=== PATIENT | female | born 1955 | race Caucasian/White ===

== ENCOUNTER → 2020-09-06 13:15 | Outpatient (BNVA) | payer MEDICARE, MEDICAID, SELFPAY | PROVIDERS: PCP Internal Medicine; Referring Provider Internal Medicine; Visit Provider Hospitalist | DX: J44.9 Chronic obstructive pulmonary disease, unspecified (principal); J96.11 Chronic respiratory failure with hypoxia; M06.9 Rheumatoid arthritis, unspecified; Z14.1 Cystic fibrosis carrier; Z79.899 Other long term (current) drug therapy; Z99.81 Dependence on supplemental oxygen | CPT/HCPCS: 99212 ==

== ENCOUNTER → 2020-10-16 09:52 | Outpatient (BNVA) | payer MEDICARE, MEDICAID, SELFPAY | PROVIDERS: PCP Internal Medicine; Referring Provider Internal Medicine; Visit Provider Student in an Organized Health Care Education/Training Program | DX: Z13.89 Encounter for screening for other disorder (principal) | CPT/HCPCS: Q3014 ==

== ENCOUNTER 2021-01-08 10:13 | Outpatient (REF) | payer MEDICARE, MEDICAID, SELFPAY ==
[2021-01-08 12:06] LABS: MANUAL DIFF FLAG NO
[2021-01-08 12:11] LABS: Basophils Absolute Auto 0.1 X10*3/uL (0.0-0.2); Basophils Percent Auto 1.4 % (0-2); Eosinophils Absolute Auto 0.2 X10*3/uL (0.0-0.4); Eosinophils Percent Auto 3.7 % (0-4); Hematocrit 33.9 % (37-47); Imm Gran Abs Auto 0.01 X10*3/uL (0.00-0.03); Imm Gran Pct Auto 0.2 % (0.0-0.4); Lymphocytes Absolute Auto 2.4 X10*3/uL (1.2-4.9); Lymphocytes Percent Auto 42.3 % (20-40); Mean Corpuscular HGB Conc 29.5 g/dl (31.0-35.0); Mean Corpuscular Volume 81.5 fL (80-98); Mean Platelet Volume 10.3 fL (9.4-12.3); Monocytes Absolute Auto 0.6 X10*3/uL (0.1-1.2); Monocytes Percent Auto 10.3 % (2-11); Neutrophils Absolute Auto 2.4 X10*3/uL (2.0-8.3); Neutrophils Percent Auto 42.1 % (45-73); Platelet Count 370 X10*3/uL (160-400); Red Blood Count 4.16 X10*6/uL (4.20-5.50); Red Cell Distribution Width 17.2 % (11.0-16.0); White Blood Count 5.6 X10*3/uL (4.8-10.8)
[2021-01-08 12:47] LABS: Alanine Aminotransferase 20 U/L (0-31); Albumin Level 4.1 g/dL (3.5-5.0); Alkaline Phosphatase 70 U/L (39-117); Anion Gap 17 (12-20); Aspartate Amino Transferase 32 U/L (5-31); Bilirubin Total 0.3 mg/dL (0.0-1.0); Blood Urea Nitrogen 9 mg/dL (9-16); C Reactive Protein 0.08 mg/dL (< or = 0.50); Calcium 9.1 mg/dL (8.4-10.2); Carbon Dioxide 34 mmol/L (22-29); Chloride 96 mmol/L (96-108); Estimated Glomerular Filt Rate > 60; Glucose Random 104 mg/dL (60-115); Potassium 3.3 mmol/L (3.3-5.1); Sodium 144 mmol/L (135-145); Total Protein 6.5 g/dL (6.5-8.0)
[2021-01-08 12:53] LABS: Erythrocyte Sedimentation Rate 6 MM/HR (0-20)
== END 2021-01-08 10:14 | disposition home or self-care (01) ==
LOC: HO.LAB 10:13
PROVIDERS: Visit Provider Student in an Organized Health Care Education/Training Program
DX: M05.9 Rheumatoid arthritis with rheumatoid factor, unspecified (principal); G62.9 Polyneuropathy, unspecified; S91.302A Unspecified open wound, left foot, initial encounter; Z79.899 Other long term (current) drug therapy
CPT/HCPCS: 36415; 80053; 85025; 85652; 86140; 99212

== ENCOUNTER → 2021-01-29 09:39 | Outpatient (BNVA) | payer MEDICARE, MEDICAID, SELFPAY | PROVIDERS: PCP Physician Assistant Medical; Visit Provider Hospitalist | DX: Z13.89 Encounter for screening for other disorder (principal) | CPT/HCPCS: Q3014 ==

== ENCOUNTER 2021-04-09 10:49 | Outpatient (REF) | payer MEDICARE, MEDICAID, SELFPAY ==
[2021-04-09 12:15] LABS: MANUAL DIFF FLAG NO
[2021-04-09 12:21] LABS: Basophils Percent Auto 0.6 % (0-2); Eosinophils Absolute Auto 0.2 X10*3/uL (0.0-0.4); Eosinophils Percent Auto 2.4 % (0-4); Imm Gran Abs Auto 0.02 X10*3/uL (0.00-0.03); Imm Gran Pct Auto 0.3 % (0.0-0.4); Lymphocytes Absolute Auto 2.2 X10*3/uL (1.2-4.9); Lymphocytes Percent Auto 30.9 % (20-40); Mean Corpuscular Hemoglobin 28.1 pg (27.0-33.0); Mean Corpuscular Volume 90.9 fL (80-98); Mean Platelet Volume 10.8 fL (9.4-12.3); Monocytes Absolute Auto 0.7 X10*3/uL (0.1-1.2); Monocytes Percent Auto 9.6 % (2-11); Neutrophils Percent Auto 56.2 % (45-73); Platelet Count 219 X10*3/uL (160-400); Red Blood Count 4.62 X10*6/uL (4.20-5.50); Red Cell Distribution Width 20.1 % (11.0-16.0); White Blood Count 7.2 X10*3/uL (4.8-10.8)
[2021-04-09 13:01] LABS: Alanine Aminotransferase 13 U/L (0-31); Albumin Level 4.3 g/dL (3.5-5.0); Alkaline Phosphatase 80 U/L (39-117); Anion Gap 13 (12-20); Aspartate Amino Transferase 23 U/L (5-31); Bilirubin Total 0.5 mg/dL (0.0-1.0); Blood Urea Nitrogen 10 mg/dL (9-16); C Reactive Protein 0.08 mg/dL (< or = 0.50); Calcium 9.2 mg/dL (8.4-10.2); Carbon Dioxide 35 mmol/L (22-29); Chloride 97 mmol/L (96-108); Estimated Glomerular Filt Rate > 60; Glucose Random 120 mg/dL (60-115); Sodium 141 mmol/L (135-145); Total Protein 6.6 g/dL (6.5-8.0)
[2021-04-09 13:39] LABS: Erythrocyte Sedimentation Rate 1 MM/HR (0-20)
== END 2021-04-09 10:50 | disposition home or self-care (01) ==
LOC: HO.LAB 10:49
PROVIDERS: PCP Internal Medicine; Visit Provider Student in an Organized Health Care Education/Training Program
DX: M05.9 Rheumatoid arthritis with rheumatoid factor, unspecified (principal)
CPT/HCPCS: 36415; 80053; 85025; 85652; 86140; 99212

== ENCOUNTER → 2021-07-23 10:07 | Outpatient (BNVA) | payer MEDICARE, MEDICAID, SELFPAY | PROVIDERS: PCP Physician Assistant Medical; Visit Provider Hospitalist | DX: J96.11 Chronic respiratory failure with hypoxia (principal); J44.9 Chronic obstructive pulmonary disease, unspecified; Z14.1 Cystic fibrosis carrier | CPT/HCPCS: 99212 ==

== ENCOUNTER → 2021-07-31 10:44 | Outpatient (BNVA) | payer MEDICARE, MEDICAID, SELFPAY | PROVIDERS: PCP Physician Assistant Medical; Visit Provider Nurse Practitioner Family | DX: M05.9 Rheumatoid arthritis with rheumatoid factor, unspecified (principal) | CPT/HCPCS: 99212 ==

== ENCOUNTER → 2021-11-05 10:06 | Outpatient (BNVA) | payer MEDICARE, MEDICAID, SELFPAY | PROVIDERS: PCP Physician Assistant Medical; Visit Provider Nurse Practitioner Family | DX: M05.9 Rheumatoid arthritis with rheumatoid factor, unspecified (principal); M25.561 Pain in right knee; M25.562 Pain in left knee | CPT/HCPCS: 99212 ==

== ENCOUNTER → 2022-01-20 10:46 | Outpatient (BNVA) | payer MEDICARE, MEDICAID, SELFPAY | PROVIDERS: PCP Physician Assistant Medical; Visit Provider Hospitalist | DX: J96.11 Chronic respiratory failure with hypoxia (principal); R05.3 Chronic cough; J44.9 Chronic obstructive pulmonary disease, unspecified; J30.0 Vasomotor rhinitis; Z14.1 Cystic fibrosis carrier | CPT/HCPCS: 99212 ==

== ENCOUNTER 2022-05-01 09:33 | Outpatient (REF) | payer MEDICARE, MEDICAID, SELFPAY ==
[2022-05-01 09:51] LABS: MANUAL DIFF FLAG NO
[2022-05-01 10:46] LABS: Basophils Percent Auto 0.6 % (0-2); Eosinophils Absolute Auto 0.1 X10*3/uL (0.0-0.4); Eosinophils Percent Auto 2.7 % (0-4); Hematocrit 38.6 % (37.0-47.0); Hemoglobin 12.4 g/dl (12.0-16.0); Imm Gran Abs Auto 0.01 X10*3/uL (0.00-0.03); Imm Gran Pct Auto 0.2 % (0.0-0.4); Lymphocytes Absolute Auto 1.8 X10*3/uL (1.2-4.9); Lymphocytes Percent Auto 33.9 % (20-40); Mean Corpuscular HGB Conc 32.1 g/dl (31.0-35.0); Mean Corpuscular Hemoglobin 33.1 pg (27.0-33.0); Mean Corpuscular Volume 102.9 fL (80.0-98.0); Mean Platelet Volume 10.1 fL (9.4-12.3); Monocytes Absolute Auto 0.7 X10*3/uL (0.1-1.2); Monocytes Percent Auto 13.4 % (2-11); Neutrophils Absolute Auto 2.5 x10*3/uL (2.0-8.3); Neutrophils Percent Auto 49.2 % (45-73); Platelet Count 207 X10*3/uL (160-400); Red Blood Count 3.75 X10*6/uL (4.20-5.50); Red Cell Distribution Width 14.4 % (11.0-16.0); White Blood Count 5.2 X10*3/uL (4.8-10.8)
[2022-05-01 11:15] LABS: Alanine Aminotransferase 30 U/L (0-31); Albumin Level 4.4 g/dL (3.5-5.0); Alkaline Phosphatase 65 U/L (39-117); Anion Gap 12 (12-20); Aspartate Amino Transferase 33 U/L (5-31); Bilirubin Total 0.4 mg/dL (0.0-1.0); Blood Urea Nitrogen 14 mg/dL (9-16); Calcium 9.5 mg/dL (8.4-10.2); Carbon Dioxide 34 mmol/L (22-29); Chloride 101 mmol/L (96-108); Cholesterol 223 mg/dL; Estimated Glomerular Filt Rate > 60; Glucose Random 82 mg/dL (60-115); HDL Cholesterol 104 mg/dL; LDL Cholesterol Calculated 94 mg/dl; Potassium 4.6 mmol/L (3.3-5.1); Sodium 142 mmol/L (135-145); Total Protein 6.6 g/dL (6.5-8.0); Triglycerides 126 mg/dL
[2022-05-01 11:27] LABS: Erythrocyte Sedimentation Rate 2 MM/HR (0-20)
[2022-05-01 12:35] LABS: Reflex LDLD? No
== END 2022-05-01 09:34 | disposition home or self-care (01) ==
LOC: HO.LAB 09:33
PROVIDERS: PCP Internal Medicine; Visit Provider Nurse Practitioner Family
DX: M05.9 Rheumatoid arthritis with rheumatoid factor, unspecified (principal); M25.561 Pain in right knee; M25.562 Pain in left knee
CPT/HCPCS: 36415; 80053; 80061; 85025; 85652; 86140; 99212

== ENCOUNTER → 2022-07-24 10:18 | Outpatient (BNVA) | payer MEDICARE, MEDICAID, SELFPAY | PROVIDERS: PCP Internal Medicine; Visit Provider Hospitalist | DX: J44.9 Chronic obstructive pulmonary disease, unspecified (principal); J96.11 Chronic respiratory failure with hypoxia; R05.3 Chronic cough; J30.0 Vasomotor rhinitis; Z14.1 Cystic fibrosis carrier | CPT/HCPCS: 99212 ==

== ENCOUNTER 2022-07-30 12:07 | Outpatient (REF) | payer MEDICARE, MEDICAID, SELFPAY ==
[2022-07-30 13:40] LABS: MANUAL DIFF FLAG NO
[2022-07-30 13:42] LABS: Basophils Percent Auto 0.8 % (0-2); Eosinophils Absolute Auto 0.1 X10*3/uL (0.0-0.4); Eosinophils Percent Auto 1.3 % (0-4); Hematocrit 40.4 % (37.0-47.0); Hemoglobin 13.2 g/dl (12.0-16.0); Imm Gran Abs Auto 0.01 X10*3/uL (0.00-0.03); Imm Gran Pct Auto 0.2 % (0.0-0.4); Lymphocytes Absolute Auto 1.7 X10*3/uL (1.2-4.9); Lymphocytes Percent Auto 32.8 % (20-40); Mean Corpuscular HGB Conc 32.7 g/dl (31.0-35.0); Mean Corpuscular Hemoglobin 33.3 pg (27.0-33.0); Mean Platelet Volume 10.8 fL (9.4-12.3); Monocytes Absolute Auto 0.6 X10*3/uL (0.1-1.2); Monocytes Percent Auto 11.1 % (2-11); Neutrophils Absolute Auto 2.8 x10*3/uL (2.0-8.3); Neutrophils Percent Auto 53.8 % (45-73); Platelet Count 239 X10*3/uL (160-400); Red Blood Count 3.96 X10*6/uL (4.20-5.50); Red Cell Distribution Width 12.4 % (11.0-16.0); White Blood Count 5.2 X10*3/uL (4.8-10.8)
[2022-07-30 13:57] LABS: Alanine Aminotransferase 20 U/L (0-31); Albumin Level 4.4 g/dL (3.5-5.0); Alkaline Phosphatase 69 U/L (39-117); Anion Gap 19 (12-20); Aspartate Amino Transferase 28 U/L (5-31); Bilirubin Total 0.2 mg/dL (0.0-1.0); Blood Urea Nitrogen 13 mg/dL (9-16); C Reactive Protein 1.09 mg/dL (< or = 0.50); Calcium 10.5 mg/dL (8.4-10.2); Carbon Dioxide 31 mmol/L (22-29); Chloride 99 mmol/L (96-108); Estimated Glomerular Filt Rate > 60; Glucose Random 91 mg/dL (60-115); Potassium 4.1 mmol/L (3.3-5.1); Sodium 145 mmol/L (135-145); Total Protein 6.9 g/dL (6.5-8.0)
[2022-07-30 14:17] LABS: Erythrocyte Sedimentation Rate 18 MM/HR (0-20)
[2022-07-30 14:47] LABS: Vitamin B12 936 pg/mL (200-900)
[2022-07-31 12:06] LABS: Calcium (PTHI) 10.6 mg/dL (8.6-10.4); PTHI 19 pg/mL (16-77)
== END 2022-07-30 12:08 | disposition home or self-care (01) ==
LOC: HO.10HDL 12:07
PROVIDERS: Visit Provider Nurse Practitioner Family
DX: M05.9 Rheumatoid arthritis with rheumatoid factor, unspecified (principal); M25.561 Pain in right knee; M25.562 Pain in left knee; D75.89 Other specified diseases of blood and blood-forming organs; E83.52 Hypercalcemia
CPT/HCPCS: 36415; 80053; 82607; 83970; 84443; 85025; 85652; 86140; 99212

== ENCOUNTER 2023-01-01 10:16 | Outpatient (REF) | payer MEDICARE, MEDICAID, SELFPAY ==
[2023-01-01 10:25] LABS: MANUAL DIFF FLAG NO
[2023-01-01 10:47] LABS: Basophils Absolute Auto 0.1 X10*3/uL (0.0-0.2); Basophils Percent Auto 0.8 % (0-2); Eosinophils Absolute Auto 0.1 X10*3/uL (0.0-0.4); Eosinophils Percent Auto 1.8 % (0-4); Hematocrit 37.6 % (37.0-47.0); Hemoglobin 12.4 g/dl (12.0-16.0); Imm Gran Abs Auto 0.02 X10*3/uL (0.00-0.03); Imm Gran Pct Auto 0.3 % (0.0-0.4); Lymphocytes Percent Auto 33.8 % (20-40); Mean Corpuscular Hemoglobin 33.9 pg (27.0-33.0); Mean Corpuscular Volume 102.7 fL (80.0-98.0); Mean Platelet Volume 10.9 fL (9.4-12.3); Monocytes Absolute Auto 0.8 X10*3/uL (0.1-1.2); Monocytes Percent Auto 13.4 % (2-11); Neutrophils Percent Auto 49.9 % (45-73); Red Blood Count 3.66 X10*6/uL (4.20-5.50); Red Cell Distribution Width 13.4 % (11.0-16.0)
[2023-01-01 11:04] LABS: Alanine Aminotransferase 26 U/L (0-31); Albumin Level 4.1 g/dL (3.5-5.0); Alkaline Phosphatase 66 U/L (39-117); Anion Gap 15 (12-20); Aspartate Amino Transferase 28 U/L (5-31); Bilirubin Total 0.5 mg/dL (0.0-1.0); Blood Urea Nitrogen 23 mg/dL (9-16); C Reactive Protein 0.17 mg/dL (< or = 0.50); Calcium 9.1 mg/dL (8.4-10.2); Carbon Dioxide 34 mmol/L (22-29); Chloride 101 mmol/L (96-108); Cholesterol 231 mg/dL; Estimated Glomerular Filt Rate > 60; Glucose Random 148 mg/dL (60-115); HDL Cholesterol 106 mg/dL; LDL Cholesterol Calculated 102 mg/dl; Potassium 3.5 mmol/L (3.3-5.1); Sodium 146 mmol/L (135-145); Total Protein 6.2 g/dL (6.5-8.0); Triglycerides 117 mg/dL
[2023-01-01 11:13] LABS: Reflex LDLD? No
[2023-01-01 11:21] LABS: Platelet Count 160 X10*3/uL (160-400)
[2023-01-01 11:35] LABS: Erythrocyte Sedimentation Rate 2 MM/HR (0-20)
[2023-01-04 13:58] LABS: IgA 143 mg/dL (70-320); IgG 553 mg/dL (600-1540); IgM 62 mg/dL (50-300)
[2023-01-06 00:58] LABS: Prot Elec - Albumin 4.1 g/dL (3.8-4.8); Prot Elec - Alpha1 0.3 g/dL (0.2-0.3); Prot Elec - Alpha2 0.7 g/dL (0.5-0.9); Prot Elec - Beta 1 0.4 g/dL (0.4-0.6); Prot Elec - Beta 2 0.2 g/dL (0.2-0.5); Prot Elec - Gamma 0.6 g/dL (0.8-1.7); Prot Elec - Total Protein 6.2 g/dL (6.1-8.1)
== END 2023-01-01 10:17 | disposition home or self-care (01) ==
LOC: HO.LAB 10:16
PROVIDERS: PCP Internal Medicine; Visit Provider Nurse Practitioner Family
DX: M05.9 Rheumatoid arthritis with rheumatoid factor, unspecified (principal); M25.561 Pain in right knee; M25.562 Pain in left knee; D75.89 Other specified diseases of blood and blood-forming organs; E83.52 Hypercalcemia; E78.5 Hyperlipidemia, unspecified
CPT/HCPCS: 36415; 80053; 80061; 82784; 84165; 85025; 85652; 86140; 86334; 99212

== ENCOUNTER 2023-01-15 09:05 | Outpatient (REF) | payer MEDICARE, MEDICAID, SELFPAY ==
--- NOTE | ~2023-01-15 | MM_ITS ---
EXAMINATION: BONE DENSITOMETRY CLINICAL INDICATION: Osteoporosis. COMPARISON: This is the patient's baseline examination. TECHNIQUE: Using a MEDEM DXA System (software version: 13.1) manufactured by [employer], dual-energy x-ray absorptiometry was performed of the lumbar spine and left hip. The images are of good technical quality. Summary results are attached. FINDINGS: AP SPINE L1-L2 (excluding L3 and L4): The data of L1-L4 has been changed to exclude the L3 and L4 vertebral bodies, because degenerative sclerosis at these levels may cause overestimation of lumbar spine density. BMD 1.224 g/cm2, Z-score 1.8, T-score 0.5, normal. LEFT FEMUR, NECK: BMD 0.528 g/cm2, Z-score -2.4, T-score -3.7, osteoporosis. LEFT FEMUR, TOTAL: BMD 0.562 g/cm2, Z-score -2.6, T-score -3.5, osteoporosis. IDENTIFIED RISK FACTORS: Early menopause, glucocorticoids (chronic), height loss, history of fracture (adult), recurrent falls, low body weight, osteoporosis, renal, rheumatoid arthritis, secondary osteoporosis. HISTORY OF FRACTURE: Spine, wrist, other. MEDICATIONS: Calcium, vitamin D, bisphosphonate. MM/XR DEXA axial skeleton IMPRESSION: 1. DIAGNOSIS: Severe osteoporosis based on the lowest T-score value of -3.7 in the femoral neck and history of fracture of spine and wrist applying World Health Organization criteria. 2. 10-YEAR FRACTURE RISK PREDICTION, FRAX: According to the guidelines, FRAX calculation should only be performed on patients in the osteopenia bone density category. Therefore, FRAX was not performed on this patient. 3. Treatment Recommendations: NOF guidelines recommend consideration for treatment in postmenopausal women and men age 50 and older presenting with the following: -A hip or vertebral (clinical or morphometric) fracture. -T-score less than or equal to -2.5 at the femoral neck or spine after appropriate evaluation to exclude secondary causes. -Low bone mass at the hip or spine and a 10-year fracture probability by FRAX of greater than or equal to 3% for hip fracture or greater than or equal to 20% for major osteoporotic fracture based on the [place] adapted WHO algorithm. 4. Other Recommendations: All treatment decisions require clinical judgment and consideration of individual patient factors, including patient preferences, comorbidities, previous drug use, risk factors not captured in the FRAX model (e.g. frailty, falls, vitamin D deficiency, increased bone turnover, interval significant decline in bone density) and possible under or overestimation of fracture risk by FRAX. Additional medical evaluation for secondary cause of low bone mineral density may be appropriate. FUTURE SCAN RECOMMENDATION: People with diagnosed cases of osteoporosis or at high risk for fracture should have regular bone mineral density tests. For patients eligible for Medicare, routine testing is allowed once every 2 years. The testing frequency can be increased to one year for patients who have rapidly progressing disease, those who are receiving or discontinuing medical therapy to restore bone mass, or have additional risk factors.
== END 2023-01-15 09:06 | disposition home or self-care (01) ==
LOC: HO.MAMMO 09:05
PROVIDERS: PCP Internal Medicine; Visit Provider Nurse Practitioner Family
DX: M81.0 Age-related osteoporosis without current pathological fracture (principal); J44.9 Chronic obstructive pulmonary disease, unspecified; J96.11 Chronic respiratory failure with hypoxia; R05.3 Chronic cough; J30.0 Vasomotor rhinitis; D80.1 Nonfamilial hypogammaglobulinemia; Z14.1 Cystic fibrosis carrier; Z99.81 Dependence on supplemental oxygen
CPT/HCPCS: 77080; 99212

== ENCOUNTER 2023-03-09 12:09 | Outpatient (REF) | payer MEDICARE, MEDICAID, SELFPAY ==
--- NOTE | ~2023-03-09 | XR_ITS ---
EXAMINATION: XR HAND, RIGHT XR HAND, LEFT CLINICAL INFORMATION: Rheumatoid arthritis. COMPARISON: None available. TECHNIQUE: 3 views of each hand. FINDINGS: LEFT: Osteopenia. Bone alignment is normal. No acute fracture or dislocation. There is a triangular density seen projecting over the 1st HALF-WAY joint questionable for old trauma. Joint spaces are normal. Soft tissues are normal. RIGHT: Osteopenia. Bone alignment is normal. No acute fracture or dislocation. Probable old trauma to the right distal radius. Mild arthritis at the 1st HALF-WAY joint with joint space narrowing and osteophyte formation. Soft tissues are normal. XR/XR hand LT min 3V IMPRESSION: LEFT: Osteopenia. Question old trauma to the 1st HALF-WAY joint. RIGHT: Osteopenia. Question old trauma to the distal radius. Mild osteoarthritis at the 1st HALF-WAY joint.
--- NOTE | ~2023-03-09 | XR_ITS ---
EXAMINATION: XR HAND, RIGHT XR HAND, LEFT CLINICAL INFORMATION: Rheumatoid arthritis. COMPARISON: None available. TECHNIQUE: 3 views of each hand. FINDINGS: LEFT: Osteopenia. Bone alignment is normal. No acute fracture or dislocation. There is a triangular density seen projecting over the 1st ASSISTED joint questionable for old trauma. Joint spaces are normal. Soft tissues are normal. RIGHT: Osteopenia. Bone alignment is normal. No acute fracture or dislocation. Probable old trauma to the right distal radius. Mild arthritis at the 1st ASSISTED joint with joint space narrowing and osteophyte formation. Soft tissues are normal. XR/XR hand RT min 3V IMPRESSION: LEFT: Osteopenia. Question old trauma to the 1st ASSISTED joint. RIGHT: Osteopenia. Question old trauma to the distal radius. Mild osteoarthritis at the 1st ASSISTED joint.
[2023-03-09 12:29] LABS: MANUAL DIFF FLAG NO
[2023-03-09 13:53] LABS: Basophils Percent Auto 0.9 % (0-2); Eosinophils Absolute Auto 0.1 X10*3/uL (0.0-0.4); Eosinophils Percent Auto 1.5 % (0-4); Hematocrit 37.5 % (37.0-47.0); Hemoglobin 12.2 g/dl (12.0-16.0); Imm Gran Abs Auto 0.01 X10*3/uL (0.00-0.03); Imm Gran Pct Auto 0.2 % (0.0-0.4); Lymphocytes Absolute Auto 1.3 X10*3/uL (1.2-4.9); Lymphocytes Percent Auto 27.4 % (20-40); Mean Corpuscular HGB Conc 32.5 g/dl (31.0-35.0); Mean Corpuscular Hemoglobin 33.7 pg (27.0-33.0); Mean Corpuscular Volume 103.6 fL (80.0-98.0); Mean Platelet Volume 11.1 fL (9.4-12.3); Monocytes Absolute Auto 0.6 X10*3/uL (0.1-1.2); Monocytes Percent Auto 12.5 % (2-11); Neutrophils Absolute Auto 2.7 x10*3/uL (2.0-8.3); Neutrophils Percent Auto 57.5 % (45-73); Platelet Count 184 X10*3/uL (160-400); Red Blood Count 3.62 X10*6/uL (4.20-5.50); White Blood Count 4.6 X10*3/uL (4.8-10.8)
[2023-03-09 14:31] LABS: Alanine Aminotransferase 20 U/L (0-31); Albumin Level 4.1 g/dL (3.5-5.0); Alkaline Phosphatase 70 U/L (39-117); Anion Gap 15 (12-20); Aspartate Amino Transferase 26 U/L (5-31); Bilirubin Total 0.5 mg/dL (0.0-1.0); Blood Urea Nitrogen 25 mg/dL (9-16); Calcium 9.6 mg/dL (8.4-10.2); Carbon Dioxide 36 mmol/L (22-29); Chloride 96 mmol/L (96-108); Estimated Glomerular Filt Rate 59; Glucose Random 105 mg/dL (60-115); Potassium 4.7 mmol/L (3.3-5.1); Sodium 142 mmol/L (135-145); Total Protein 6.4 g/dL (6.5-8.0)
[2023-03-09 15:02] LABS: Folate 18.2 ng/mL (> or = 4.0); Vitamin B12 724 pg/mL (200-900)
[2023-03-09 15:05] LABS: Erythrocyte Sedimentation Rate 16 MM/HR (0-20)
[2023-03-12 14:48] LABS: Immunoglobulin G Subclass 1 442 mg/dL (382-929); Immunoglobulin G Subclass 2 137 mg/dL (241-700); Immunoglobulin G Subclass 3 36 mg/dL (22-178); Immunoglobulin G Total 638 mg/dL (600-1540)
[2023-03-12 22:58] LABS: Immunoglobulin E 7 kU/L (<OR=114)
== END 2023-03-09 12:10 | disposition home or self-care (01) ==
LOC: HO.LAB 12:09
PROVIDERS: Hospitalist; PCP Internal Medicine; Visit Provider Nurse Practitioner Family
DX: D80.1 Nonfamilial hypogammaglobulinemia (principal); M05.9 Rheumatoid arthritis with rheumatoid factor, unspecified; M79.641 Pain in right hand; M79.642 Pain in left hand
CPT/HCPCS: 36415; 73130; 80053; 82607; 82746; 82784; 82785; 85025; 85652

== ENCOUNTER → 2023-04-22 08:56 | Outpatient (BNVA) | payer MEDICARE, MEDICAID, SELFPAY | PROVIDERS: PCP Internal Medicine; Visit Provider Internal Medicine Rheumatology | DX: M05.9 Rheumatoid arthritis with rheumatoid factor, unspecified (principal); Z79.60 Long term (current) use of unspecified immunomodulators and immunosuppressants | CPT/HCPCS: 99212 ==

== ENCOUNTER 2023-07-15 11:22 | Outpatient (AMB) | payer MEDICARE, MEDICAID, SELFPAY ==
--- NOTE | 2023-07-15 11:29 | A.OFFVIS_ITS ---
Intake Vital Signs 3 07/15/23 11:31 Height 5 ft 3 in Weight 168 lb BMI 29.8 Pulse 78 Pulse Source Pulse Oximeter Pulse Oximetry (%) 93 Oxygen Delivery Method Room Air Comment 2 Liters Oxygen([facility]) Intake Visit Reasons: COPD Lapel Stitcher Required: No Allergies levofloxacin [Levaquin] Allergy (Severe, Verified 07/15/23 11:33) vomiting HPI HPI Comments 2 History of Present Illness0 Details Patient is 67 y/o woman with a history of COPD O2 dependent in addition to all cystic fibrosis carrier. She has been using the oxygen with good effect. On room air at rest she is down to 87%. When she wears the oxygen at 2 L pulse increases to 94%. She continues to have issues with wheezing and shortness of breath mainly in the morning. She does use her Anoro daily. She felt better when she uses Trelegy in the past. She does not like to use steroids but they seem to help her wheezing specially that in the morning. Therefore, I will switch her back to trelegy as she failed Anoro. She continues uses CPAP with CPAP therapy continues to be affecting beneficial. She uses a nasal pillow mask and it works well. She uses the CPAP more than 4 hours a night. The major issue is that the patient needs increased portability with oxygen. A portable tanks are not providing with enough portability in order for her to do her activities outside of the home. She cannot carry multiple attacks of significant arthritic disease due to the fact that she does have marked arthritis. She continues to have issues with wheezing and shortness of breath mainly in the morning. She does use her Anoro daily. She felt better when she uses Trelegy in the past. She does not like to use steroids but they seem to help her wheezing specially that in the morning. Therefore, I will switch her back to trelegy as she failed Anoro. She continues uses CPAP with CPAP therapy continues to be affecting beneficial. She uses a nasal pillow mask and it works well. She uses the CPAP more than 4 hours a night. The major issue is that the patient needs increased portability with oxygen. A portable tanks are not providing with enough portability in order for her to do her activities outside of the home. She cannot carry multiple attacks of significant arthritic disease due to the fact that she does have marked arthritis. Therefore, the patient needs to get a portable oxygen concentrator through [facility]. We will submit the proper paperwork in start the process for her to be able to get a battery operated portable oxygen concentrator. 07/23/2021 the patient is here for a pulmonary follow-up visit. She continues to have difficulties with her oxygen supplementation. She cannot lift to portable tanks so therefore she does have not using the oxygen and therefore results increasing shortness of breath with activity. I did call her [employer] in the provider with B cylinders with a pulse valve which be horticultural farm manager than the portable oxygen concentrator and she lasted between 4-6 hours. In the meantime the patient continues use her CPAP at nighttime. The CPAP therapy continues to be affecting beneficial. She overall months ago the patient had a fall and she fractured clavicle. She was evaluated at [facility]. She had an x-ray there but I do not have that available at this time I will give the patient an x-ray rec. The patient is to get an x-ray if she continues to be symptomatic. Her major symptoms are continue to be a cough which is typically hacky cough with nonproductive in nature. She also complains of the shortness of breath her clavicle has now healed. No significant pain. She has been vaccinated for COVID. Her son and also sister and mother all had COVID. 01/20/2022 the patient is here for pulmonary follow-up visit. She still struggling because she has not been able to get a portable oxygen concentrator. The oxygen tanks are very heavy for her and her arthritis. She follows closely with rheumatology. She has been complaining of a nasal congestion and postnasal drip ears causing her to cough at nighttime. Recently she also started on lisinopril that is likely also adding to her cough. She will talk to her primary care doctor about switching her over to an ARB instead of the BIANCA- inhibitor. The patient continues uses CPAP at nighttime. The CPAP therapy continues to be affecting beneficial. She does use it for more than 4 hours a night. However with the nasal congestion the postnasal drip is getting worse. She also has a little ulceration the nose that she is concerned about. 07/24/2022 the patient is here for a pulmonary follow-up visit. Since we last spoke she did have a viral syndrome and subsequently a COPD exacerbation. She tested negative for COVID. She was given spread in zone and also antibiotics. Her cough is significant and not allowing her to sleep. She failed outpatient [id number] cough medication therefore Center codeine which seems to work better for her. She continues her respiratory therapy. She has completed the prednisone. However, she continues to have wheezing on examination. Will go ahead and increase her inhaled steroids by adding budesonide to her regimen. This will be just temporary while she gets better and then she can stop it. 01/15/2023 the patient is here for pulmonary follow-up visit. Overall she doing relatively well from a respiratory status. She does have chest congestion and nasal congestion in the morning after using her CPAP. But otherwise clears up after that. She does have the oxygen that she can use with activity. She also uses the oxygen at nighttime with her CPAP. Her CPAP therapy continues to be affecting beneficial and she does use it for more than 4 hours a night. She was wondering about the hypoglossal nerve stimulator. I advised her against considering that option in the meantime the patient has been using her respiratory therapy with good effect. Recently she had blood work including her IgG levels that were found to be low and also a CBC with evidence of microcytosis. The patient has had history of B12 deficiency in the past. Therefore, she is going to go back to using multivitamins with B complex and will have repeat blood work in a couple months. Hopefully her IgG levels improved and her MCV also improves. Patient also may benefit from a hematological evaluation. She continues use the Trelegy inhaler with good effect. No need for prednisone at this time which is reassuring. 07/15/2023 the patient is here for hospital follow-up visit. The patient recently was hospitalized at [facility] for shoulder surgery. The surgery went well but apparently after she was having issues with respiratory distress. There was suspicion of aspiration pneumonitis. The patient did have to use oxygen. She was also kept in the hospital given antibiotics and also I respiratory therapy treatments. The patient also had a CT scan of the chest demonstrating some new pulmonary nodules that will need follow-up. She continues to struggle with her breathing. Still requiring between 2-3 L with activity. Prior to that she was is using her oxygen at nighttime with her PAP therapy. We did go for brief walking oximetry in the patient did desaturate very quickly at rest and did make up to 3 L with activity. She has a hard time caring the oxygen tanks because her shoulder surgery. I did ask for small trial E for her to get from her [employer] in order for her to be able to carry her oxygen. Will plan to start her on prednisone and also get an x-ray prior to the next visit. She should follow-up in 3-4 weeks. [facility] Medical History (Updated 07/15/23 @ 20:40 by Luke Luna MD) Atelectasis Hypercalciuria Hypogammaglobulinemia Vasomotor rhinitis Osteoporosis GERD (gastroesophageal reflux disease) HLD (hyperlipidemia) HTN (hypertension) History of CVA (cerebrovascular accident) Chronic cough Seropositive rheumatoid arthritis Chronic rheumatic arthritis Chronic respiratory failure COPD (chronic obstructive pulmonary disease) case management patient Cystic fibrosis carrier Surgical History History of surgery Family History Son Cystic fibrosis Social History (Updated 04/22/23 @ 09:13 by OLIMPIA Carrington) Household Members: None Alcohol intake: current Alcohol intake frequency: holidays/special occasions only Patient Tobacco Use Status: Former Tobacco user Tobacco use type: Cigarette Cigarettes Per Day: 10 Years Smoked: 20 e-Cigarette/Vaping Use: Never Used Physical Exam Vital Signs: Last Vital Signs Pulse 78 07/15/23 11:31 Pulse Ox 93 07/15/23 11:31 Oxygen Delivery Method Room Air 07/15/23 11:31 BMI result Body Mass Index 29.8 Office Procedures 6 Minute Walk Time:: 20:39 SPO2 % at rest: 86 Pulse at rest: 79 Supplemental Oxygen: The patient was placed on 2L at rest improving resting pox to 93%. The patient was ambulated, but had to increase O2 to 3L to maintain pox 92% with activity. Rec: 2L at rest, 3 liters with activity. Needs a trolley. [id number] - 6 Minute Walk Results Reviewed Results Reviewed: Assessment & Plan Assessment & Plan (1) Chronic respiratory failure: Code(s): J96.10 - Chronic respiratory failure, unspecified whether with hypoxia or hypercapnia Qualifiers: Respiratory failure complication: hypoxia Qualified Code(s): J96.11 - Chronic respiratory failure with hypoxia (2) COPD (chronic obstructive pulmonary disease) case management patient: Code(s): J44.9 - Chronic obstructive pulmonary disease, unspecified (3) Cystic fibrosis carrier: Code(s): Z14.1 - Cystic fibrosis carrier (4) Chronic cough: Code(s): R05.3 - Chronic cough (5) Vasomotor rhinitis: Code(s): J30.0 - Vasomotor rhinitis (6) Hypogammaglobulinemia: Code(s): D80.1 - Nonfamilial hypogammaglobulinemia (7) Atelectasis: Code(s): J98.11 - Atelectasis Plan continue Trelegy daily BUdesonide nebs JANNETH as needed Needs to continue oxygen 2L at rest and with PAP, 3L with activity. Had shoulder surgery. Needs trolleey to transport the oxygen tank ipratropium nasal spray Continue CPAP at night with O2 ISS/deep breathing exercises F/U 3 months Coding Level of Care Code Est Pt Level 5 (88950) Diagnoses Chronic respiratory failure with hypoxia J96.11 Respiratory failure complication: hypoxia COPD (chronic obstructive pulmonary disease) case management patient J44.9 Cystic fibrosis carrier Z14.1 Chronic cough R05.3 Vasomotor rhinitis J30.0 Hypogammaglobulinemia D80.1 Atelectasis J98.11 CPT Codes Coding ([id number]) Time Spent (min) 50
[2023-07-15 11:31] VITALS: PULSE 78; O2SAT 93; BMI 29.8
[2023-07-15 20:39] VITALS: PULSE 79; O2SAT 86
== END 2023-07-15 12:24 | disposition home or self-care (01) ==
PROVIDERS: PCP Internal Medicine; Visit Provider Hospitalist
DX: J96.11 Chronic respiratory failure with hypoxia (principal); J44.9 Chronic obstructive pulmonary disease, unspecified; Z14.1 Cystic fibrosis carrier; D80.1 Nonfamilial hypogammaglobulinemia
CPT/HCPCS: 94618; 99215

== ENCOUNTER → 2023-07-15 11:22 | Outpatient (BNVA) | payer MEDICARE, MEDICAID, SELFPAY | PROVIDERS: Visit Provider Hospitalist | DX: J44.9 Chronic obstructive pulmonary disease, unspecified (principal); J96.11 Chronic respiratory failure with hypoxia; R05.3 Chronic cough; J30.0 Vasomotor rhinitis; J98.11 Atelectasis; D80.1 Nonfamilial hypogammaglobulinemia; Z79.899 Other long term (current) drug therapy; Z14.1 Cystic fibrosis carrier | CPT/HCPCS: 94618; 99212 ==

== ENCOUNTER 2023-08-05 09:36 | Outpatient (REF) | payer MEDICARE, MEDICAID, SELFPAY ==
--- NOTE | ~2023-08-05 | XR_ITS ---
EXAMINATION: XR CHEST CLINICAL INFORMATION: Atelectasis COMPARISON: 10/19/2019 TECHNIQUE: 2 views of the chest were obtained. FINDINGS: Redemonstration of mild enlargement of the cardiac silhouette. There is no gross pneumothorax. Dextroscoliosis of the thoracic spine with multilevel degenerative changes. No pleural effusion. Increased opacities at the lung bases, left greater than right, may represent atelectasis and/or pneumonia. Redemonstration of prior T12 vertebroplasty. XR/XR chest 2V IMPRESSION: Increased left greater than right bibasilar opacities may represent atelectasis and/or pneumonia. Recommend follow-up imaging in 4-6 weeks to confirm resolution and exclude underlying pathology. This study was presented today 08/10 2023 at 8:23 AM for interpretation. PSA staff will provide results to referring provider at this time.
== END 2023-08-05 09:37 | disposition home or self-care (01) ==
LOC: HO.XRAY 09:36
PROVIDERS: PCP Internal Medicine; Visit Provider Hospitalist
DX: J98.11 Atelectasis (principal); J96.11 Chronic respiratory failure with hypoxia; J44.9 Chronic obstructive pulmonary disease, unspecified; R05.3 Chronic cough; D80.1 Nonfamilial hypogammaglobulinemia
CPT/HCPCS: 71046; 99212

== ENCOUNTER 2023-08-05 10:13 | Outpatient (AMB) | payer MEDICARE, MEDICAID, SELFPAY ==
[2023-08-05 11:19] VITALS: PULSE 86; O2SAT 96; BMI 29.8
--- NOTE | 2023-08-05 11:19 | MHC.OFFVIS ---
Intake Vital Signs 08/05/23 11:19 Height 5 ft 3 in Weight 168 lb BMI 29.8 Pulse 86 Pulse Source Pulse Oximeter Pulse Oximetry (%) 96 Oxygen Delivery Method Room Air Intake Visit Reasons: COPD Brinell Tester Required: No Allergies levofloxacin [Levaquin] Allergy (Severe, Verified 08/05/23 11:21) vomiting HPI HPI Comments History of Present Illness Details Patient is 68 y/o woman with a history of COPD O2 dependent in addition to all cystic fibrosis carrier. She has been using the oxygen with good effect. On room air at rest she is down to 87%. When she wears the oxygen at 2 L pulse increases to 94%. She continues to have issues with wheezing and shortness of breath mainly in the morning. She does use her Anoro daily. She felt better when she uses Trelegy in the past. She does not like to use steroids but they seem to help her wheezing specially that in the morning. Therefore, I will switch her back to trelegy as she failed Anoro. She continues uses CPAP with CPAP therapy continues to be affecting beneficial. She uses a nasal pillow mask and it works well. She uses the CPAP more than 4 hours a night. The major issue is that the patient needs increased portability with oxygen. A portable tanks are not providing with enough portability in order for her to do her activities outside of the home. She cannot carry multiple attacks of significant arthritic disease due to the fact that she does have marked arthritis. She continues to have issues with wheezing and shortness of breath mainly in the morning. She does use her Anoro daily. She felt better when she uses Trelegy in the past. She does not like to use steroids but they seem to help her wheezing specially that in the morning. Therefore, I will switch her back to trelegy as she failed Anoro. She continues uses CPAP with CPAP therapy continues to be affecting beneficial. She uses a nasal pillow mask and it works well. She uses the CPAP more than 4 hours a night. The major issue is that the patient needs increased portability with oxygen. A portable tanks are not providing with enough portability in order for her to do her activities outside of the home. She cannot carry multiple attacks of significant arthritic disease due to the fact that she does have marked arthritis. Therefore, the patient needs to get a portable oxygen concentrator through [facility]. We will submit the proper paperwork in start the process for her to be able to get a battery operated portable oxygen concentrator. 01/15/2023 the patient is here for pulmonary follow-up visit. Overall she doing relatively well from a respiratory status. She does have chest congestion and nasal congestion in the morning after using her CPAP. But otherwise clears up after that. She does have the oxygen that she can use with activity. She also uses the oxygen at nighttime with her CPAP. Her CPAP therapy continues to be affecting beneficial and she does use it for more than 4 hours a night. She was wondering about the hypoglossal nerve stimulator. I advised her against considering that option in the meantime the patient has been using her respiratory therapy with good effect. Recently she had blood work including her IgG levels that were found to be low and also a CBC with evidence of microcytosis. The patient has had history of B12 deficiency in the past. Therefore, she is going to go back to using multivitamins with B complex and will have repeat blood work in a couple months. Hopefully her IgG levels improved and her MCV also improves. Patient also may benefit from a hematological evaluation. She continues use the Trelegy inhaler with good effect. No need for prednisone at this time which is reassuring. 07/15/2023 the patient is here for hospital follow-up visit. The patient recently was hospitalized at [facility] for shoulder surgery. The surgery went well but apparently after she was having issues with respiratory distress. There was suspicion of aspiration pneumonitis. The patient did have to use oxygen. She was also kept in the hospital given antibiotics and also I respiratory therapy treatments. The patient also had a CT scan of the chest demonstrating some new pulmonary nodules that will need follow-up. She continues to struggle with her breathing. Still requiring between 2-3 L with activity. Prior to that she was is using her oxygen at nighttime with her PAP therapy. We did go for brief walking oximetry in the patient did desaturate very quickly at rest and did make up to 3 L with activity. She has a hard time caring the oxygen tanks because her shoulder surgery. I did ask for small trial E for her to get from her [employer] in order for her to be able to carry her oxygen. Will plan to start her on prednisone and also get an x-ray prior to the next visit. She should follow-up in 3-4 weeks. 08/05/2023 the patient is here for a pulmonary follow-up visit. The patient is feeling a little better. She still has significant pain from her shoulder surgery. She has been using her oxygen. The oxygen therapy has been affecting beneficial. Although is very difficult for her to carry the oxygen outside of the home because of her shoulder. For the most part she stays in her house. She still desaturates and she still needs to continues use her oxygen. She did undergo a repeat chest x-ray which I did review with her and we compared to her chest x-rays from [facility]. There is interval improvement in the bibasilar opacities which is reassuring. Also to note the patient was admitted to the hospital again at [facility] with atrial fibrillation with RVR. This is new onset AFib for her. She was seen by Cardiology. She was initially placed on Eliquis and also amiodarone. The dose of amiodarone has subsequently decreased. No evidence of any worsening shortness of breath which is reassuring. [facility] Medical History (Updated 08/05/23 @ 22:09 by Luke Luna MD) Atelectasis Hypercalciuria Hypogammaglobulinemia Vasomotor rhinitis Osteoporosis GERD (gastroesophageal reflux disease) HLD (hyperlipidemia) HTN (hypertension) History of CVA (cerebrovascular accident) Chronic cough Seropositive rheumatoid arthritis Chronic rheumatic arthritis Chronic respiratory failure COPD (chronic obstructive pulmonary disease) case management patient Cystic fibrosis carrier Surgical History History of surgery Family History Son Cystic fibrosis Social History (Updated 04/22/23 @ 09:13 by OLIMPIA Carrington) Household Members: None Alcohol intake: current Alcohol intake frequency: holidays/special occasions only Patient Tobacco Use Status: Former Tobacco user Tobacco use type: Cigarette Cigarettes Per Day: 10 Years Smoked: 20 e-Cigarette/Vaping Use: Never Used Review of Systems Const Denies frequent falls ENT Denies change in voice, Denies mouth pain, Reports nasal congestion, Reports nasal discharge, Reports post nasal drip and Denies tongue swelling Card Denies chest pain, Reports palpitations and Reports dyspnea on exertion Resp Reports chest congestion, Reports cough, Reports dyspnea on exertion and Reports wheezing GI Denies abdominal pain Musc Reports arthralgias, Reports joint swelling and Reports limited range of motion Neuro Denies frequent falls Psych Denies no additional complaints Endo Reports palpitations Sergey/Lymph Denies easy bleeding and Denies lymphadenopathy Aller/Immun Denies tongue swelling and Reports wheezing Physical Exam Vital Signs: Last Vital Signs Pulse 86 08/05/23 11:19 Pulse Ox 96 08/05/23 11:19 Oxygen Delivery Method Room Air 08/05/23 11:19 BMI result Body Mass Index 29.8 Const General: alert HEENT General nose exam: Abnormal external nose present and Nasal discharge present Eyes Pupils: Equal, round and reactive pupils present Neck Neck: Yes normal visual inspection, Yes full ROM and Yes no lymphadenopathy Chest Chest palpation & inspection: normal inspection of the chest Resp Auscultation: no wheezes and diminished lung sounds Cardio Rate: regular rate Rhythm: regular rhythm Heart sounds: S1 normal heart sound present and S2 normal heart sound present GI Palpation (GI): Soft to palpation and nontender Auscultation: normal bowel sounds General: Yes no CVA tenderness Back/Spine/Pelvis Back: no CVA tenderness Skin General skin exam: rashes and/or lesions noted Neuro Cranial nerves: Yes Equal, round and reactive pupils present Assessment & Plan Assessment & Plan (1) Chronic respiratory failure: Code(s): J96.10 - Chronic respiratory failure, unspecified whether with hypoxia or hypercapnia Qualifiers: Respiratory failure complication: hypoxia Qualified Code(s): J96.11 - Chronic respiratory failure with hypoxia (2) COPD (chronic obstructive pulmonary disease) case management patient: Code(s): J44.9 - Chronic obstructive pulmonary disease, unspecified (3) Cystic fibrosis carrier: Code(s): Z14.1 - Cystic fibrosis carrier (4) Chronic cough: Code(s): R05.3 - Chronic cough (5) Vasomotor rhinitis: Code(s): J30.0 - Vasomotor rhinitis (6) Hypogammaglobulinemia: Code(s): D80.1 - Nonfamilial hypogammaglobulinemia (7) Atelectasis: Comment: better Code(s): J98.11 - Atelectasis Plan continue Trelegy daily BUdesonide nebs JANNETH as needed Needs to continue oxygen 2L at rest and with PAP, 3L with activity. Had shoulder surgery. Needs trolle[employer] to transport the oxygen tank ipratropium nasal spray Continue CPAP at night with O2 ISS/deep breathing exercises F/U 3 months Orders: Orders XR chest 2V Today J98.11 - Atelectasis Coding Level of Care Code Est Pt Level 4 (82168) Diagnoses Chronic respiratory failure with hypoxia J96.11 Respiratory failure complication: hypoxia COPD (chronic obstructive pulmonary disease) case management patient J44.9 Cystic fibrosis carrier Z14.1 Chronic cough R05.3 Vasomotor rhinitis J30.0 Hypogammaglobulinemia D80.1 Atelectasis J98.11 Time Spent (min) 18
== END 2023-08-05 11:41 | disposition home or self-care (01) ==
PROVIDERS: PCP Internal Medicine; Visit Provider Hospitalist
DX: J96.11 Chronic respiratory failure with hypoxia (principal); J44.9 Chronic obstructive pulmonary disease, unspecified; Z14.1 Cystic fibrosis carrier; R05.3 Chronic cough; J30.0 Vasomotor rhinitis; D80.1 Nonfamilial hypogammaglobulinemia; J98.11 Atelectasis
CPT/HCPCS: 99214

== ENCOUNTER 2023-12-02 09:39 | Outpatient (AMB) | payer MEDICARE, MEDICAID, SELFPAY ==
[2023-12-02 10:02] VITALS: BP 100/60; PULSE 103; O2SAT 94; BMI 27.6
--- NOTE | 2023-12-02 10:02 | HO.NEPHOV_ITS ---
HPI HPI Comments History of Present Illness Details Kayleigh is a 68-year-old patient with history of renal artery stenosis as well as hypertension. She had prolonged multiple hospitalizations recently. She has history of CVA without any significant deficits. She closely follows up with vascular surgery. She is on home oxygen now. She denies any worsening shortness of breath, orthopnea, pedal edema, orthostatic symptoms, hematuria or fever. She does not take any nonsteroidal anti-inflammatories. [facility] Medical History (Updated 12/14/23 @ 14:47 by Vikram Bateman MD) Adrenal insufficiency RSV (respiratory syncytial virus infection) Atelectasis Hypercalciuria Hypogammaglobulinemia Vasomotor rhinitis Osteoporosis GERD (gastroesophageal reflux disease) HLD (hyperlipidemia) HTN (hypertension) History of CVA (cerebrovascular accident) Chronic cough Seropositive rheumatoid arthritis Chronic rheumatic arthritis Chronic respiratory failure COPD (chronic obstructive pulmonary disease) case management patient Cystic fibrosis carrier Surgical History Hx of shoulder surgery History of surgery Family History Son Cystic fibrosis Social History Household Members: None Alcohol intake: current Alcohol intake frequency: holidays/special occasions only Patient Tobacco Use Status: Former Tobacco user Tobacco use type: Cigarette Cigarettes Per Day: 10 Years Smoked: 20 e-Cigarette/Vaping Use: Never Used Vital Signs 12/02/23 10:02 Height 5 ft 3 in Weight 156 lb BMI 27.6 BP 100/60 Blood Pressure Location Lt brachial Position Sitting Pulse 103 H Pulse Source Pulse Oximeter Pulse Oximetry (%) 94 Oxygen Delivery Method Nasal Cannula Physical Exam Vital Signs: Last Vital Signs Pulse 103 H 12/02/23 10:02 BP 100/60 12/02/23 10:02 Pulse Ox 94 12/02/23 10:02 Oxygen Delivery Method Nasal Cannula 12/02/23 10:02 BMI result Body Mass Index 27.6 Const General: comfortable and no acute distress Orientation/consciousness: patient oriented x3 HEENT Head: Yes normocephalic Mouth: Normal oral and palatal mucosa present Eyes EOM: EOMs intact bilaterally Neck Neck: Yes supple Resp Auscultation: clear to auscultation bilaterally Cardio Jugular venous distension: no JVD Rate: regular rate GI Palpation (GI): Soft to palpation Auscultation: normal bowel sounds General: Yes no CVA tenderness Back/Spine/Pelvis Back: no CVA tenderness Skin General skin exam: no rashes or lesions noted Neuro General: patient oriented x3 and moves all extremities Extrem General: Yes no pedal edema Assessment & Plan Assessment & Plan (1) Renal artery stenosis: Comment: Follows with Nephrology at [facility]. Code(s): I70.1 - Atherosclerosis of renal artery (2) HTN (hypertension): Code(s): I10 - Essential (primary) hypertension Qualifiers: Hypertension type: renovascular hypertension Qualified Code(s): I15.0 - Renovascular hypertension Plan Kayleigh has peripheral arterial disease as well as renal artery stenosis. She has longstanding hypertension. Her renal functions have been stable. She tries to be on a low-sodium diet. She avoids nonsteroidal anti-inflammatories. There is no indication for any renal angiogram, angioplasty or stenting of the renal artery now. She could continue on her current medication regimen for now. She will be closely followed up in our office for continued optimal care. Answered all questions. Orders: Orders Electrolytes 12/02/23 I70.1 - Atherosclerosis of renal artery, I10 - Essential (primary) hypertension Calcium 12/02/23 I70.1 - Atherosclerosis of renal artery, I10 - Essential (primary) hypertension Blood Urea Nitrogen 12/02/23 I70.1 - Atherosclerosis of renal artery, I10 - Essential (primary) hypertension Creatinine 12/02/23 I70.1 - Atherosclerosis of renal artery, I10 - Essential (primary) hypertension Coding Level of Care Code Est Pt Level 3 (78630) Diagnoses Renal artery stenosis I70.1 Renovascular hypertension I15.0 Hypertension type: renovascular hypertension Results Reviewed Nephrology Results: Hgb 9.0 g/dl (12.0-16.0) L 12/13/23 WBC 9.2 X10*3/uL (4.8-10.8) 12/13/23 Plt Count 302 X10*3/uL (160-400) 12/13/23 Sodium 143 mmol/L (135-145) 12/13/23 Potassium 3.6 mmol/L (3.3-5.1) 12/13/23 Chloride 93 mmol/L (96-108) L 12/13/23 Carbon Dioxide 35 mmol/L (22-29) H 12/13/23 BUN 12 mg/dL (9-16) 12/13/23 Creatinine 0.72 mg/dL (0.5-1.4) 12/13/23 Calcium 10.1 mg/dL (8.4-10.2) 12/13/23
== END 2023-12-02 10:40 | disposition home or self-care (01) ==
PROVIDERS: PCP Internal Medicine; Visit Provider Internal Medicine Nephrology
DX: I70.1 Atherosclerosis of renal artery (principal); I15.0 Renovascular hypertension
CPT/HCPCS: 99213

== ENCOUNTER → 2023-12-02 09:39 | Outpatient (BNVA) | payer MEDICARE, MEDICAID, SELFPAY | PROVIDERS: PCP Internal Medicine; Visit Provider Internal Medicine Nephrology | DX: I70.1 Atherosclerosis of renal artery (principal); I15.0 Renovascular hypertension | CPT/HCPCS: 99212 ==

== ENCOUNTER 2023-12-07 10:40 | Outpatient (AMB) | payer MEDICARE, MEDICAID, SELFPAY ==
[2023-12-07 10:41] VITALS: BMI 27.3
--- NOTE | 2023-12-07 10:41 | MHC.OFFVIS ---
Intake Vital Signs 12/07/23 10:41 Height 5 ft 3 in Weight 154 lb BMI 27.3 Intake Visit Reasons: sick visit per MD Clinical Services Specialist Required: No Allergies levofloxacin [Levaquin] Allergy (Severe, Verified 12/07/23 10:42) vomiting HPI HPI Comments History of Present Illness Details Patient is 68 y/o woman with a history of COPD O2 dependent in addition to all cystic fibrosis carrier. She has been using the oxygen with good effect. On room air at rest she is down to 87%. When she wears the oxygen at 2 L pulse increases to 94%. She continues to have issues with wheezing and shortness of breath mainly in the morning. She does use her Anoro daily. She felt better when she uses Trelegy in the past. She does not like to use steroids but they seem to help her wheezing specially that in the morning. Therefore, I will switch her back to trelegy as she failed Anoro. She continues uses CPAP with CPAP therapy continues to be affecting beneficial. She uses a nasal pillow mask and it works well. She uses the CPAP more than 4 hours a night. The major issue is that the patient needs increased portability with oxygen. A portable tanks are not providing with enough portability in order for her to do her activities outside of the home. She cannot carry multiple attacks of significant arthritic disease due to the fact that she does have marked arthritis. She continues to have issues with wheezing and shortness of breath mainly in the morning. She does use her Anoro daily. She felt better when she uses Trelegy in the past. She does not like to use steroids but they seem to help her wheezing specially that in the morning. Therefore, I will switch her back to trelegy as she failed Anoro. She continues uses CPAP with CPAP therapy continues to be affecting beneficial. She uses a nasal pillow mask and it works well. She uses the CPAP more than 4 hours a night. The major issue is that the patient needs increased portability with oxygen. A portable tanks are not providing with enough portability in order for her to do her activities outside of the home. She cannot carry multiple attacks of significant arthritic disease due to the fact that she does have marked arthritis. Therefore, the patient needs to get a portable oxygen concentrator through [facility]. We will submit the proper paperwork in start the process for her to be able to get a battery operated portable oxygen concentrator. 01/15/2023 the patient is here for pulmonary follow-up visit. Overall she doing relatively well from a respiratory status. She does have chest congestion and nasal congestion in the morning after using her CPAP. But otherwise clears up after that. She does have the oxygen that she can use with activity. She also uses the oxygen at nighttime with her CPAP. Her CPAP therapy continues to be affecting beneficial and she does use it for more than 4 hours a night. She was wondering about the hypoglossal nerve stimulator. I advised her against considering that option in the meantime the patient has been using her respiratory therapy with good effect. Recently she had blood work including her IgG levels that were found to be low and also a CBC with evidence of microcytosis. The patient has had history of B12 deficiency in the past. Therefore, she is going to go back to using multivitamins with B complex and will have repeat blood work in a couple months. Hopefully her IgG levels improved and her MCV also improves. Patient also may benefit from a hematological evaluation. She continues use the Trelegy inhaler with good effect. No need for prednisone at this time which is reassuring. 07/15/2023 the patient is here for hospital follow-up visit. The patient recently was hospitalized at [facility] for shoulder surgery. The surgery went well but apparently after she was having issues with respiratory distress. There was suspicion of aspiration pneumonitis. The patient did have to use oxygen. She was also kept in the hospital given antibiotics and also I respiratory therapy treatments. The patient also had a CT scan of the chest demonstrating some new pulmonary nodules that will need follow-up. She continues to struggle with her breathing. Still requiring between 2-3 L with activity. Prior to that she was is using her oxygen at nighttime with her PAP therapy. We did go for brief walking oximetry in the patient did desaturate very quickly at rest and did make up to 3 L with activity. She has a hard time caring the oxygen tanks because her shoulder surgery. I did ask for small trial E for her to get from her [employer] company in order for her to be able to carry her oxygen. Will plan to start her on prednisone and also get an x-ray prior to the next visit. She should follow-up in 3-4 weeks. 08/05/2023 the patient is here for a pulmonary follow-up visit. The patient is feeling a little better. She still has significant pain from her shoulder surgery. She has been using her oxygen. The oxygen therapy has been affecting beneficial. Although is very difficult for her to carry the oxygen outside of the home because of her shoulder. For the most part she stays in her house. She still desaturates and she still needs to continues use her oxygen. She did undergo a repeat chest x-ray which I did review with her and we compared to her chest x-rays from [facility]. There is interval improvement in the bibasilar opacities which is reassuring. Also to note the patient was admitted to the hospital again at [facility] with atrial fibrillation with RVR. This is new onset AFib for her. She was seen by Cardiology. She was initially placed on Eliquis and also amiodarone. The dose of amiodarone has subsequently decreased. No evidence of any worsening shortness of breath which is reassuring. 12/07/2023 the patient has a telehealth visit today. Apparently she was sick with RSV back in October where she spent several weeks in the hospital. She did require ICU level of care. She was not high-flow. She was then transferred to an acute rehab most likely because of ongoing respiratory failure. The patient there spent about another 2-3 weeks. Subsequently after that she was discharged home on some prednisone she just finished the last week. She started developing dizziness, nausea vomiting, malaise. She feels very sleepy. Denies any worsening of the breathing although she is short of breath with activity. She has been using her oxygen with good effect. Will go ahead and give her some Zofran for her nausea and vomiting will start her back on 20 mg of prednisone for this suspicion of adrenal insufficiency secondary to her multiple wakes up prednisone likely high dose. The patient will start on the 20 mg twice a day for the 1st day then 20 mg daily. Once she feels better she needs to come in for blood work including a venous gas to make sure that his CO2 is within the normal ranges. If the patient worsens she knows she needs to go to the ER in view of her significant comorbidities. [facility] Medical History (Updated 12/07/23 @ 10:55 by Luke Luna MD) Adrenal insufficiency RSV (respiratory syncytial virus infection) Atelectasis Hypercalciuria Hypogammaglobulinemia Vasomotor rhinitis Osteoporosis GERD (gastroesophageal reflux disease) HLD (hyperlipidemia) HTN (hypertension) History of CVA (cerebrovascular accident) Chronic cough Seropositive rheumatoid arthritis Chronic rheumatic arthritis Chronic respiratory failure COPD (chronic obstructive pulmonary disease) case management patient Cystic fibrosis carrier Surgical History Hx of shoulder surgery History of surgery Family History Son Cystic fibrosis Social History Household Members: None Alcohol intake: current Alcohol intake frequency: holidays/special occasions only Patient Tobacco Use Status: Former Tobacco user Tobacco use type: Cigarette Cigarettes Per Day: 10 Years Smoked: 20 e-Cigarette/Vaping Use: Never Used Review of Systems Const Reports fatigue, Denies frequent falls, Reports headache(s), Reports lethargy and Reports malaise ENT Denies change in voice, Reports dizziness, Reports headache(s), Denies mouth pain, Reports nasal congestion, Reports nasal discharge, Reports post nasal drip and Denies tongue swelling Card Denies chest pain, Reports palpitations and Reports dyspnea on exertion Resp Reports chest congestion, Reports cough, Reports dyspnea on exertion and Reports wheezing GI Reports nausea and Reports vomiting Musc Reports arthralgias, Reports joint swelling and Reports limited range of motion Neuro Reports dizziness, Denies frequent falls and Reports headache(s) Psych Denies no additional complaints Endo Reports fatigue and Reports palpitations Sergey/Lymph Denies easy bleeding and Denies lymphadenopathy Aller/Immun Denies tongue swelling and Reports wheezing Physical Exam Vital Signs: BMI result Body Mass Index 27.3 Const General: cooperative Orientation/consciousness: patient oriented x3 Eyes Pupils: Equal, round and reactive pupils present Resp Effort & Inspection: normal respiratory effort and able to speak in complete sentences Neuro General: patient oriented x3 Cranial nerves: Yes Equal, round and reactive pupils present Assessment & Plan Assessment & Plan (1) Adrenal insufficiency: Code(s): E27.40 - Unspecified adrenocortical insufficiency (2) Chronic respiratory failure: Code(s): J96.10 - Chronic respiratory failure, unspecified whether with hypoxia or hypercapnia Qualifiers: Respiratory failure complication: hypoxia Qualified Code(s): J96.11 - Chronic respiratory failure with hypoxia (3) RSV (respiratory syncytial virus infection): Code(s): B33.8 - Other specified viral diseases (4) COPD (chronic obstructive pulmonary disease) case management patient: Code(s): J44.9 - Chronic obstructive pulmonary disease, unspecified (5) Cystic fibrosis carrier: Code(s): Z14.1 - Cystic fibrosis carrier (6) Chronic cough: Code(s): R05.3 - Chronic cough (7) Vasomotor rhinitis: Code(s): J30.0 - Vasomotor rhinitis (8) Hypogammaglobulinemia: Code(s): D80.1 - Nonfamilial hypogammaglobulinemia (9) Atelectasis: Comment: better Code(s): J98.11 - Atelectasis Plan restart Prednisone 20mg daily zofran as needed for N/V Bloodwork requested continue Trelegy daily BUdesonide nebs JANNETH as needed Needs to continue oxygen 2L at rest and with PAP, 3L with activity. Had shoulder surgery. Needs trolley to transport the oxygen tank ipratropium nasal spray Continue CPAP at night with O2 ISS/deep breathing exercises F/U 1-2 weeks, needs to go to the ED if worsens Orders: Orders Venous Blood Gas Today J96.10 - Chronic respiratory failure, unspecified whether with hypoxia or hypercapnia Complete Blood Count Auto Diff Today J96.10 - Chronic respiratory failure, unspecified whether with hypoxia or hypercapnia Basic Metabolic Panel Today J96.10 - Chronic respiratory failure, unspecified whether with hypoxia or hypercapnia Liver Panel Today J96.10 - Chronic respiratory failure, unspecified whether with hypoxia or hypercapnia Medications: New ondansetron HCl 4 mg PO Q8H 14 days PRN 30 tabs 0RF nausea and vomiting prednisone 20 mg (2 x 10 mg) PO DAILY 30 days 60 tabs 6RF Telehealth Telehealth Location of provider rendering services: practice address Location of patient: address on file Patient Identification confirmed using: Name, : Yes Telehealth method: voice only Patient verbally consented to treatment: Yes Patient verbally consented to billing insurance company: Yes Patient informed of any privacy concerns related to visit: Yes Coding Level of Care Code Tele Est Pt Level 4 (46095) Diagnoses Adrenal insufficiency E27.40 Chronic respiratory failure with hypoxia J96.11 Respiratory failure complication: hypoxia RSV (respiratory syncytial virus infection) B33.8 COPD (chronic obstructive pulmonary disease) case management patient J44.9 Cystic fibrosis carrier Z14.1 Chronic cough R05.3 Vasomotor rhinitis J30.0 Hypogammaglobulinemia D80.1 Atelectasis J98.11 Time Spent (min) 15
--- OUTSIDE RECORDS SUMMARY | 2023-12-07 10:42 | XMS_ITS | Continuity of Care Document ---
Author Name Unknown Organization [facility] ter Address [address] [place] [id number] Care Team Providers Care Studio Associate Name Role Phone Romelia ULRICH, Fe Dubois Primary Care Physician ( [phone] [facility] [facility] [place]s): 06/16/23 - 06/29/[address] [address]- Discharge Disposition: A-Transfer VNA/Home Health Attending Physician: Robert Smiley MD Admitting Physician: Marilee Newton MD, V Referring Physician: Marilee Newton MD, V Allergies, Adverse Reactions, Alerts Substance Reaction Severity Status benazepril cough Active Levaquin itchy Active celecoxib gi upset Active Immunizations Given and Recorded Vaccine Date Status Refusal Reason pneumococcal 23-valent vaccine 08/07/15 Given influenza virus vaccine, inactivated 08/07/15 Give n Medications acetaminophen 325 mg oral tablet 650 mg, Tablet, By Mouth, Every 8 hours, PRN for Pain , Mild, and for TEMP >100.4, Routine, 06/15/23 18:00:00 EDT Start Date: 06/15/23 Stop Date: 07/15/23 Status: Ordered acetaminophen 325 mg oral tablet 650 mg, By Mouth, Every 6 hours, PRN, for 7 days, and for TEMP >100.4, # 50 tablet, Refills 0, Tot. Refills 0, Acute 07/06/23 11:00:00 EDT, Pain , Mild, 06/29/23 11:00:00 EDT, Route to Pharmacy Electronically, [facility]/pharmacy #[id number], Partial fill upon pa... Start Date: 06/29/23 Stop Date: 07/06/23 Status: Ordered aspirin 81 mg oral delayed release tablet 1 tablet = 81 mg, By Mouth, Daily, # 30 tablet, 0 Refills, Maintenance, 06/29/23 11:01:00 EDT, EC Tablet, [facility]/pharmacy #[id number], Partial fill upon patient request if the prescription is for a schedule II opioid drug., 161, cm, 06/29/23 7:47:00 EDT, Heigh... Start Date: 06/29/23 Status: Ordered atorvastatin 40 mg oral tablet 1 tablet = 40 mg, By Mouth, Daily in AM, # 30 tablet, 0 Refills, Maintenance, 06/29/23 11:01:00 EDT, Tablet, [facility]/pharmacy #[id number], Partial fill upon patient request if the prescription is for a schedule II opioid drug., 161, cm, 06/29/23 7:47:00 EDT, He... Start Date: 06/29/23 Status: Ordered calcium (as carbonate)-vitamin D 500 mg-400 intl units oral tablet By Mouth, Daily, ORAL, TABLET, 0 Refill(s),, 0 Refills, 05/17/19 13:06:00 EDT Start Date: 05/17/19 Status: Ordered Cymbalta 30 mg oral enteric coated capsule 1 capsule = 30 mg, By Mouth, Daily in AM, ORAL, CAPSULE, DELAYED RELEASE PELLETS, 0 Refill(s),, 0 Refills, 05/17/19 13:06:00 EDT Start Date: 05/17/19 Status: Ordered docusate sodium 100 mg oral capsule 100 mg, 1, capsule, By Mouth, 2 times a day, Refills 0, Maintenance, 06/16/23 9:44:00 EDT, Partial fill upon patient request if the prescription is for a schedule II opioid drug. Start Date: 06/16/23 Status: Ordered furosemide 20 mg oral tablet 20 mg, 1, tablet, By Mouth, Daily in AM, # 30 tablet, Refills 2, Tot. Refills 2, Maintenance, 06/29/23 16:23:00 EDT, Route to Pharmacy Electronically, [facility]/pharmacy #[id number], Partial fill upon patient request if the prescription is for a schedule II opioi... Start Date: 06/29/23 Stop Date: 09/27/23 Status: Ordered Kevzara 150 mg/1.14 mL subcutaneous solution Subcutaneous Infusion, Every 14 days, 0 Refills, Maintenance, 04/18/19 15:06:13 EDT Start Date: 04/18/19 Status: Ordered metoprolol 25 mg oral tablet, extended release 50 mg, 2, tablet, By Mouth, Daily, ORAL, TABLET, EXTENDED RELEASE, 0 Refill(s),, # 60 tablet, Refills 0, Tot. Refills 0, Maintenance, 06/29/23 11:01:00 EDT, Route to Pharmacy Electronically, [facility]/pharmacy #[id number], Partial fill upon patient request if the... Start Date: 06/29/23 Status: Ordered metoprolol extended release 50 mg, XL Tablet, By Mouth, Hold for: hold for SBP < 110, HR < 57, 06/29/23 9:00:00 EDT Start Date: 06/29/23 Stop Date: 06/29/23 Status: Completed oxyCODONE 5 mg oral tablet 5 mg, By Mouth, Every 6 hours, PRN, for 5 days, # 20 tablet, Refills 0, Tot. Refills 0, Acute 07/04/23 11:07:00 EDT, Pain , Moderate, 06/29/23 11:07:00 EDT, Route to Pharmacy Electronically, [facility]/pharmacy #[id number], Partial fill upon patient request if the... Start Date: 06/29/23 Stop Date: 07/04/23 Status: Ordered oxyCODONE 5 mg oral tablet 10 mg, Tablet, By Mouth, Every 4 hours, PRN for Pain , Severe, Routine, 06/23/23 13:53:00 EDT Start Date: 06/23/23 Stop Date: 06/30/23 Status: Ordered Oxygen 0 Refills, Maintenance, 04/13/16 16:39:56 Start Date: 04/13/16 Status: Ordered Plavix 75 mg oral tablet 75 mg, 1, tablet, By Mouth, Daily, # 30 tablet, Refills 0, Tot. Refills 0, Maintenance, 06/29/23 11:01:00 EDT, Route to Pharmacy Electronically, [facility]/pharmacy #[id number], Partial fill upon patient request if the prescription is for a schedule II opioid drug... Start Date: 06/29/23 Status: Ordered pregabalin 75 mg oral capsule 1 capsule = 75 mg, TAKE 1 CAPSULE BY MOUTH EVERY 8 HOURS Start Date: 12/24/22 Status: Ordered ProAir HFA 90 mcg/inh inhalation aerosol with adapter 180 mcg, 2, puffs, Inhalation, 4 times a day, PRN, # 8 Gm, Refills 1, Tot. Refills 1, Maintenance, 06/29/23 11:01:00 EDT, Inhaler, Route to Pharmacy Electronically, [id number], [facility]/pharmacy #[id number], 161, cm, 06/29/23 7:47:00 ED... Start Date: 06/29/23 Stop Date: 08/28/23 Status: Ordered sulfaSALAzine 500 mg oral tablet 2 tablet = 1,000 mg, By Mouth, 2 times a day, # 360 tablet, 0 Refills, Maintenance, 07/22/20 10:34:00 EDT, Tablet Start Date: 07/22/20 Status: Ordered Trelegy Ellipta 200 mcg-62.5 mcg-25 mcg/inh inhalation powder 1 puffs, Inhalation, Daily, at the same time every day, # 30 each, 1 Refills, Maintenance, 06/29/2311:00:00 EDT, Powder, [facility]/pharmacy #[id number], Partial fill upon patient request if the prescription is for a schedule II opioid drug., 1 puffs Inhalation D... Start Date: 06/29/23 Stop Date: 08/28/23 Status: Ordered valsartan 40 mg oral tablet 80 mg, Tablet, By Mouth, 06/29/23 9:00:00 EDT Start Date: 06/29/23 Stop Date: 06/29/23 Status: Completed valsartan 80 mg oral tablet 80 mg, 1, tablet, By Mouth, Daily in AM, # 30 tablet, Refills 0, Maintenance, 12/24/22 9:41:00 EST,Partial fill upon patient request if the prescription is for a schedule II opioid drug. Start Date: 12/24/22 Status: Ordered Vitamin E By Mouth, Daily, 0 Refills, Maintenance, 12/24/22 9:42:00 EST, Partial fill upon patient request ifthe prescription is for a schedule II opioid drug. Start Date: 12/24/22 Status: Ordered Problem List Condition Confirmation Course Effective Dates Status H ealth Status Informant Alcoholism Confirmed Active Allergic rhinitis Confirmed Active Anxiety Confirmed Active Asthma Confirmed Active Backache Confirmed Active Calcium pyrophosphate deposition disease Confirmed Active Candidiasis Confirmed Active Celiac disease Confirmed Active Cellulitis of left foot Confirmed Active Chronic low back pain Confirmed Active Chronic obstructive lung disease Confirmed Active Claudication Confirmed Active Disorder of artery Confirmed Active Diverticulitis of colon Confirmed Active Enthesopathy of wrist AND/OR carpus Confirmed Active Essential hypertension Confirmed Active Ex-smoker Confirmed Active Fibromyalgia Confirmed Active Fibromyalgia Confirmed Active Gastritis Confirmed Active Gastroesophageal reflux disease Confirmed Active Hypertensive disorder Confirmed Active Hypokalemia Confirmed Active Memory loss Confirmed Active Obese class I Confirmed Active Osteopenia Confirmed Active Plantar fascial fibromatosis Confirmed Active Pain disorder associated with psychological and physical factors Confirmed Active Renal artery stenosis Confirmed Active Rib pain post trauma Confirmed Active Vitamin D deficiency Confirmed Active Results Radiology Reports * Exam Date Time Procedure Performing Provider Status 06/27/23 1:34 PM Chest 2 Views Frontal and Lat Do , Tie n; Auth (Verified) Notes: (Chest 2 Views Frontal and Lat) Reason For Exam: f/u for hypoxic respiratory failure;Other: RESULT: Chest 2 Views Frontal and Lat Chest 2 Views Frontal and Lat Reason: Other:; f u for hypoxic respiratory failure; Clinical Question(s): Pneumonia COMPARISON: 06/23/2023 FINDINGS: No change in bibasilar airspace disease and consolidation IMPRESSION: No change WSN: [id number] Ordering Physician: Edgardo Miller Dictated By: Randy Mann MD Dictated Date/Time: 06/27/23 2:09 pm Reviewed By: Randy Mann MD Signed By: Randy Mann MD Signed Date/Time: 06/27/23 2:09 pm Transcribed By: IVELISSE Transcribed Date/Time: 06/27/23 2:08 pm * Exam Date Time Procedure Performing Provider Status 06/23/23 3:15 PM Chest Portable Do , Justin; Auth (Verif ied) Notes: (Chest Portable) Reason For Exam: severe hypoxia;Other: RESULT: Chest Portable Chest Portable Reason: Other:; severe hypoxia; Clinical Question(s): Other: COMPARISON: 06/18/2023 and priors. FINDINGS: Overlying artifact limits evaluation. LINES AND TUBES: None. LUNGS AND PLEURA: Improving small bilateral pleural effusions with underlying atelectasis/consolidation. Unchanged right paramediastinal opacities likely representing scarring or atelectasis. Unchanged eventration of the right hemidiaphragm. No pneumothorax. HEART, MEDIASTINUM AND PRINCE: Heart is normal in size. Normal mediastinal and hilar contour. BONES AND SOFT TISSUES: No acute abnormality. IMPRESSION: Improving small bilateral pleural effusions with underlying atelectasis/consolidation. Otherwise, no significant change. I have personally reviewed the images and I agree with this report. WSN: [id number] Ordering Physician: Edgardo Miller Dictated By: Pete Grover MD Dictated Date/Time: 06/23/23 3:45 pm Reviewed By: Silvia Elizabeth MD Signed By: Silvia Elizabeth MD Signed Date/Time: 06/23/23 3:50 pm Transcribed By: IVELISSE Transcribed Date/Time: 06/23/23 3:34 pm * Exam Date Time Procedure Performing Provider Status 06/18/23 1:13 PM Chest Portable Miguelangel Ortega; Matt (Verified) Notes: (Chest Portable) Reason For Exam: Assess for pulm effusion, edema, vascular congestion;COPD RESULT: Chest Portable Chest Portable INDICATION: Shortness of breath, patient requiring increased supplemental oxygen. COMPARISON: 06/16/2023. FINDINGS: LINES AND TUBES: None. LUNGS AND PLEURA: Low lung volumes with moderate basilar atelectasis. Slightly increased right lower lung patchy/streaky opacities. Slightly increased right lung reticular opacities as well as haziness throughout the medial aspect of the upper and mid lung. Small bilateral pleural effusions. No pneumothorax. HEART, MEDIASTINUM AND PRINCE: Heart is normal in size. Normal mediastinal and hilar contour. BONES AND SOFT TISSUES: No acute abnormality. IMPRESSION: Slightly increased right lower lung patchy/streaky opacities as well as increased right lung reticular opacities and haziness throughout the medial aspect of the upper and mid lung. In the setting ofsmall bilateral pleural effusions findings likely represent worsening pulmonary edema, however, unde rlying pneumonia cannot be completely excluded. Moderate bibasilar atelectasis. I have personally reviewed the images and I agree with this report. WSN: [id number] Ordering Physician: Tanvi Lofton Dictated By: Lewis Arndt MD Dictated Date/Time: 06/18/23 2:45 pm Reviewed By: Davonte Leslie MD, V Signed By: Davonte Leslie MD, V Signed Date/Time: 06/18/23 2:50 pm Transcribed By: IVELISSE Transcribed Date/Time: 06/18/23 2:41 pm * Exam Date Time Procedure Performing Provider Status 06/17/23 8:[address] Angio Chest Kelly Castillo; Auth (Verified) Notes: (CT Angio Chest) Reason For Exam: PE Suspected, Intermediate Prob, Positive D-Dimer;Other: RESULT: CT Angio Chest EXAMINATION: CT Angio Chest INDICATION: Reason: Other:; PE Suspected, Intermediate Prob, Positive D-Dimer; Clinical Question(s): Pulmonary Embolism; Order Comment: TECHNIQUE: Spiral CTA of the chest was performed after rapid IV contrast administration without cardiac gating, triggered by an JESSICA on the main pulmonary artery. Images are formatted in multiple planes using 2-D multiplanar and 3-D maximum intensity projection. 50. cc of Omnipaque 300 was administered intravenously. Weight-based protocol using automatic tube modulation was used to optimize exposure parameters. CTDIvol Body: 5.56 mGy, DLP Body: 284 mGy*cm. COMPARISONS: Outside CT dated 08/05/2015 ANGIOGRAPHIC FINDINGS: No pulmonary embolism to the subsegmental level. Dilated main pulmonary artery measuring up to 3.5 cm in caliber, which may be seen with pulmonary hypertension. No acute aortic abnormality seen on this study performed without cardiac gating. NON-ANGIOGRAPHIC FINDINGS: Hazardous Waste Remover View Findings, Lines and Tubes: None. Trachea and Airways: Patent without evidence of tracheal or endobronchial lesion. Lungs and Pleura: * Small layering right pleural effusion. * Dependent atelectasis of the right lower lobe, probably related to an elevated right hemidiaphragm. * Mild linear bands of atelectasis in the middle lobe and left lower lobe. * Ill-defined part solid nodules in the right upper lobe, measuring 10 mm (coronal 87), 6 mm (coronal 91) and 9 mm (coronal image 85). * 7 mm groundglass nodule in the right upper lobe (axial 26) * Additional smaller nodules are present, including a 4 mm nodule in the left lower lobe (coronal 90) and a 3 mm nodule in the left upper lobe (coronal 75). * No pneumothorax. Mediastinum and prince: No mediastinal or hilar lymphadenopathy. No esophageal abnormality. Normal thyroid. Heart: Heart is normal in size. No pericardial effusion. Mild coronary artery calcification. Heavily calcified mitral annulus. Chest Wall Soft Tissues: Normal. Diaphragm and upper abdomen: No significant abnormality. Bones: No acute abnormality. Bilateral chronic rib fractures. Degenerative changes of the spine. Chronic fracture of the distal right clavicle. IMPRESSION: 1. No evidence of pulmonary embolism. No acute abnormality in the chest. 2. Multiple nodules in the right upper lobe measuring up to 10 mm. Short-term follow-up in 3-6 months is recommended. An actionable message (Yellow) has been communicated via the [employer] system on 06/17/2023 9:36 AM, Message ID [id number]. I have personally reviewed the images and I agree with this report. WSN: [id number] Ordering Physician: Puja Campos Dictated By: Luis Douglass MD Dictated Date/Time: 06/17/23 9:39 am Reviewed By: Eliseo Servin MD Signed By: Eliseo Servin MD Signed Date/Time: 06/17/23 9:44 am Transcribed By: IVELISSE Transcribed Date/Time: 06/17/23 9:18 am * Exam Date Time Procedure Performing Provider Status 06/16/23 10:04 PM Chest Portable Scott Gregorio (Verified) Notes: (Chest Portable) Reason For Exam: Shortness of Breath RESULT: Chest Portable Chest Portable upright at 9:37 PM Reason: Shortness of Breath; Clinical Question(s): Pulmonary Edema COMPARISON: Multiple priors, the most recent 01/12/2018 FINDINGS: LINES AND TUBES: None. LUNGS AND PLEURA: A few increased markings are noted in the left lung base. There is patchy increased density in the lower right lung. Both lungs are otherwise clear with normal vascularity. Slight blunting of both costophrenic angles. No pneumothorax. HEART, MEDIASTINUM AND PRINCE: Heart is normal in size. Normal mediastinal and hilar contour. BONES AND SOFT TISSUES: No acute abnormality. IMPRESSION: Right lung base atelectasis versus infiltrate. Mild left lung base atelectasis. Possible small bilateral pleural effusions. WSN: [id number] Ordering Physician: Roque Fox Dictated By: Randy Paz MD Dictated Date/Time: 06/16/23 11:05 p Reviewed By: Randy Paz MD Signed By: Randy Paz MD Signed Date/Time: 06/16/23 11:05 pm Transcribed By: IVELISSE Transcribed Date/Time: 06/16/23 11:03 pm Vital Signs Most recent to oldest [Reference Range]: 1 2 3 Height 161 cm (06/29/23 1:06 PM) 161 cm (06/29/23 7:47 AM) 161 cm (06/28/23 11:09 AM) Weight 80.1 kg (06/18/23 7:35 PM) 78.6 kg (06/15/23 10:04 AM) 80 kg (06/12/23 8:50 AM) Oxygen Saturation [94-100 %] 91 % *L* (06/29/23 1:06 PM) 91 % *L* (06/29/23 8:00 AM) 90 % *L* (06/29/23 7:47 AM) Pulse Rate [55-90 bpm] 73 bpm (06/29/23 1:06 PM) 77 bpm (06/29/23 8:51 AM) 77 bpm (06/29/23 7:47 AM) Body Mass Index [18.5-24.99 kg/m2] 30.9 kg/m2 *>HHI* (06/18/23 7:35 PM) 30.32 kg/m2 *>HHI* (06/15/23 10:04 AM) 30.86 kg/m2 *>HHI* (06/12/23 8:50 AM) Blood Pressure [90-138/55-84 mm Hg] 80/66mm Hg *L* (06/29/23 1:06 PM) 123/55mm Hg (06/29/23 8:51 AM) 123/55mm Hg (06/29/23 8:49 AM) Respiratory Rate [16-30 br/min] 18 br/min (06/29/23 1:06 PM) 20 br/min (06/29/23 11:28 AM) 20 br/min (06/29/23 11:27 AM) Temperature [96.8-100.4 DegF] 98.3 DegF (06/29/23 1:06 PM) 97.7 DegF (06/29/23 7:47 AM) 97.2 DegF (06/29/23 4:00 AM) Liters per Minute 3 L/min (06/29/23 1:06 PM) 3 L/min (06/29/23 8:00 AM) 3 L/min (06/29/23 7:47 AM) Mode of Delivery (Oxygen) Nasal cannula (06/29/23 1:06 PM) Nasal cannula (06/29/23 8:00 AM) Nasal cannula (06/29/23 7:47 AM) Blood pressure sites Arm, left (06/29/23 1:06 PM) Arm, left (06/29/23 7:47 AM) Arm, left (06/29/23 4:00 AM) Temperature Route Oral (06/29/23 1:06 PM) Oral (06/29/23 7:47 AM) Oral (06/29/23 4:00 AM) Dry Weight 80.1 kg (06/18/23 7:35 PM) 78.6 kg (06/15/23 10:04 AM) 80 kg (06/12/23 8:50 AM) Weight Obtained Via Bed scale (06/18/23 7:35 PM) Standing scale (06/15/23 10:04 AM) Patient/family stated (06/12/23 8:50 AM) Dry Weight Obtained Via Bed scale (06/18/23 7:35 PM) Standing scale (06/15/23 10:04 AM) Patient/family stated (06/12/23 8:50 AM) Social History Social History Type Response Smoking Status Never (less than 100 in lifetime) entered on: 06/18/23 Sex History and physical note * Event Display: History and Physical Hospital Authored Date: * Event Display: History and Physical Hospital Authored Date: EKG study * Event Display: ECG 12-Lead Authored Date: Please click on pdf link to open report * Event Display: ECG 12-Lead Authored Date: Ventricular Rate: 77 BPM Atrial Rate: 77 BPM P-R Interval: 178 ms QRS Duration: 82 ms Q-T Interval: 394 ms QTC Calculation(Bazett): 445 ms P [place]: 36 degrees R [place]: 14 degrees T [place]: 32 degrees Normal sinus rhythm with sinus arrhythmia Cannot rule out Anterior infarct (cited on or before 20-JUN-2023) Abnormal ECG When compared with ECG of 16-JUN-2023 21:29, No significant change was found Confirmed by BHARGAVI DELANEY MD ([id number]) on 06/23/2023 8:05:37 AM Harmans: BHARGAVI DELANEY MD * Event Display: ECG 12-Lead Authored Date: Please click on pdf link to open report * Event Display: ECG 12-Lead Authored Date: Ventricular Rate: 83 BPM Atrial Rate: 83 BPM P-R Interval: 168 ms QRS Duration: 80 ms Q-T Interval: 358 ms QTC Calculation(Bazett): 420 ms P [place]: 42 degrees R [place]: 22 degrees T [place]: 36 degrees Normal sinus rhythm Poor R wave progression Abnormal ECG When compared with ECG of 09-OCT-2021 15:46, Nonspecific T wave abnormality no longer evident in Lateral leads Confirmed by EDWIGE SANCHES ([id number]) on 06/17/2023 7:09:40 AM Harmans: EDWIGE SANCHES Heart * Event Display: Echocardiogram - Complete Authored Date: [id number] Transthoracic Echocardiography Report (TTE) Patient Demographics Patient Name SURINDER VYAS, Date of Study 06/20/2023 [employer] Gender Female Facility Race Ethnicity Date of 1955 Height: 63 inches Age 68 year(s) Weight: 174.19 pounds Accession Number [id number] BSA: 1.82 m2 Room Number S142 BMI: 30.86 kg/m2 Referring Physician Kirsty Tinajero MD Interpreting Emily Pennington MD Physician Chemistry Instructor Maryann Weston RDCS Indications Hypoxemia. Clinical History COPD. Hypertension. SHO. Former smoker. Study Data Type of Study TTE procedure:Echo Complete-(Doppler, Colorflow) with Contrast. Procedure Information:Definity was administered by Maryann Weston RDCS. Study Date06/20/2023 Start Time: 10:56 AM Study Location: [facility] Study Status: Echo lab Patient Status: Routine Technical Quality: Adequate Blood Pressure:116/84 mmHg EKG: Within normal limits HR: 81 bpm Contrast Medium: Definity. Amount - 2 ml 2D Measurements LV Diastolic Dimension: 4.4 cm LV Systolic Dimension: 2.1 cm LV Septum Diastolic: 1.5 cm LV PW Diastolic: 1.5 cm AO Root Dimension: 3 cm LA ESV (BP):74.2 ml LVOT Stroke Volume: 78.21 ml LA ESV Index: 41 ml/m2 Stroke Volume Index42.97 ml/m2 LVOT: 1.9 cm Cardiac Index:3.48 l/min/m2 Ascending Aorta:3.1 cm Doppler Measurements AV Peak Velocity: 255 cm/s MV Peak E-Wave: 149 cm/s AV Peak Gradient: 26.01 mmHg MV Peak A-Wave: 164 cm/s AV Mean Gradient: 14 mmHg MV E/A Ratio: 0.91 AV VTI:52.4 cm MV P1/2t: 57 msec LVOT Peak Velocity: 141 cm/s MV Mean Gradient: 5 mmHg LVOT VTI27.6 cm MV Area (continuity): 2.16 cm2 AV Area (Continuity):1.49 cm2 MV Deceleration Time: 196 msec AV P1/2t: 342 msec MV Area (PHT): 3.86 cm2 TR Velocity:171 cm/s TR Gradient:11.7 mmHg PV Peak Velocity: 128 cm/s PV Peak Gradient: 6.55 mmHg E' Septal Velocity: 8.7 cm/s E' Lateral Velocity: 7.07 cm/s E/Med E':17.30176 E/Lat E':21.78210 Cardiac Anatomy Left Ventricle/Interventricular Septum The left ventricular size is normal. The left ventricular wall thickness is moderately increased. Normal LV systolic function. Ejection fraction is 60-65%. There are no regional wall motion abnormalities. Unable to assess diastolic function due to severe mitral annulus calcification . Left Atrium/Interatrial Septum The left atrium is moderately dilated. Aortic Valve Probably trileaflet aortic valve. The aortic valve appears moderately calcified. There is mild aortic stenosis. mean gradient is 14mmHg. BLAS 1.49cm2. There is mild to moderate aortic regurgitation. Mitral Valve There is moderate to severe mitral annular calcification. There is trace mitral regurgitation. There is no significant mitral stenosis. Aorta The ascending aorta and aortic root are normal in size. Right Ventricle The right ventricle is normal in size and function. Right Atrium The right atrium is dilated. Pulmonic Valve The pulmonic valve appears grossly normal. There is trace pulmonic regurgitation. Tricuspid Valve The tricuspid valve is grossly normal. There is trace to mild tricuspid valve regurgitation. Pumonary Artery An accurate pulmonary artery pressure could not be obtained. Venous Structures The inferior vena cava appears normal. Inferior vena cava inspiratory collapse is blunted . Pericardium/Extracardiac There is a small pericardial effusion posteriorly. Summary The left ventricular size is normal. The left ventricular wall thickness is moderately increased. Normal LV systolic function. Ejection fraction is 60-65%. There are no regional wall motion abnormalities. Unable to assess diastolic function due to severe mitral annulus calcification . Probably trileaflet aortic valve. The aortic valve appears moderately calcified. There is mild aortic stenosis. mean gradient is 14mmHg. BLAS 1.49cm2. There is mild to moderate aortic regurgitation. The right ventricle is normal in size and function. There is a small pericardial effusion posteriorly. There is moderate to severe mitral annular calcification. There is trace mitral regurgitation. There is no significant mitral stenosis. Comparison No prior study available for comparison. Signature * Event Display: Echocardiogram - Complete Authored Date: Cardiology * Event Display: Cardiac Rhythm Strips Authored Date: * Event Display: Cardiac Rhythm Strips Authored Date: * Event Display: Cardiac Rhythm Strips Authored Date: Hospital Progress note * Cintia Carr MD: PERFORM Event Display: Progress Note Hospital Authored Date: Patient: ??ELKE DAVID ? Age:??68 Years?Sex:??Female?:??1955?? Subjective Pt c/o right shoulder discomfort but improving. Denies SOB and cough. Requesting pap to be removed so she can eat. Review of Systems Constitutional:??No weight loss, fever, chills, weakness/ fatigue. HEENT:??No visual loss, blurred vision, double vision or yellow sclera. No hearing loss, sneezing, congestion, runny nose or sore throat. Skin:??No rash or itching. Cardiovascular:??No chest pain, chest pressure or chest discomfort. No palpitations. No??pedal edema. Respiratory:??No shortness of breath, cough or sputum production. Gastrointestinal:??No anorexia, nausea, vomiting or diarrhea. No abdominal pain. No??blood in stool. Genitourinary:??No burning micturition. No urinary frequency or incontinence. Neurologic:??No headache, dizziness, syncope, unilateral weakness, ataxia, numbness or tingling in the extremities. No change in bowel or bladder control. Musculoskeletal:??No muscle pain, back pain, joint pain or stiffness. + postop right shoulder pain Hematologic:??No bleeding or bruising. Lymphatics:??No enlarged lymph nodes. Psychiatric:??No depression or anxiety. Endocrine:??No reports of sweating. No cold or heat intolerance. No polyuria or polydipsia. Objective Vital Signs?? Temperature: 98.5 DegF (06/28/23 11:09:00) Temperature Route: Oral (06/28/23 11:09:00) Pulse Rate: 80 bpm (06/28/23 11:09:00) Heart Rate Monitored: 72 bpm (06/28/23 07:00:00) Respiratory Rate: 17 br/min (06/28/23 11:09:00) Systolic Blood Pressure: 113 mm Hg (06/28/23 11:09:00) Diastolic Blood Pressure: 56 mm Hg (06/28/23 11:09:00) Blood pressure sites: Arm, left (06/28/23 11::00) Mean Arterial Pressure: 75 mm Hg (06/28/23 11:09:00) Pulse Pressure: 57 mm Hg (06/28/23 11::00) Oxygen Saturation:??91 %??Low (06/28/23 11:09:00) Liters per Minute: 7 L/min (06/27/23 20:00:00) Mode of Delivery (Oxygen): Room air (06/28/23::00) FiO2: 3 % (06/28/23 07:00:00) Early Warning Score: 2 (06/28/23 11:10:14) SOFA Calculated: 1 (06/28/23 10:12:18) ? Physical Exam General:??Alert, in no acute cardiopulmonary distress. Still on pap this am. Mental Status:??Oriented to person, place and time. Normal affect. Head:??Normocephalic. Eyes:??Pupils are equal, round and reactive to light. Extraocular muscles intact. Ear, Nose and Throat:??Oropharynx clear, mucous membranes moist. Ears and nose without masses, lesions or deformities. Neck:??Supple, Full range of motion. Respiratory:??Clear to auscultation and percussion. No wheezing, rales or rhonchi. Cardiovascular:??Heart sounds normal. No thrills. Regular rate and rhythm, no murmurs, rubs or gallops. Gastrointestinal:??Abdomen soft, non-tender, non-distended. Normal bowel sounds. No pulsatile mass.No hepatosplenomegaly. Genitourinary:??No costovertebral angle tenderness. Neurologic:??Cranial nerves II-XII grossly intact. No focal neurological deficits. Moves all extremities spontaneously. Sensation intact bilaterally. Skin:??No rashes or lesions. No petechiae or purpura. No edema. Musculoskeletal:??No cyanosis or clubbing. No gross deformities. Normal range of motion. Right shoulder in dressing/sling Results Recent Labs BLOOD COUNT & DIFF WBC 13.1 k/mm3 (High)?? 06/28/2023 01:43 RBC 3.25 m/mm3 (Low)?? 06/28/2023 01:43 Hgb 10.5 Gm/dL (Low)?? 06/28/2023 01:43 Hct 34.1 % (Low)?? 06/28/2023 01:43 MCV 104.9 femtoliters (High)?? 06/28/2023 01:43 MCH 32.3 pg ()?? 06/28/2023 01:43 MCHC 30.8 g/dL (Low)?? 06/28/2023 01:43 Platelet Count 391 k/mm3 ()?? 06/28/2023 01:43 RDW-SD 46.4 femtoliters ()?? 06/28/2023 01:43 MPV 11.0 femtoliters ()?? 06/28/2023 01:43 Nucleated RBC (Automated) 0.0 #/100 WBC'S ()?? 06/28/2023 01:43 Abs. NRBC 0.0 k/mm3 ()?? 06/28/2023 01:43 ?? CHEM GENERAL Sodium 139 mmol/L ()?? 06/28/2023 01:43 Potassium 4.0 mmol/L ()?? 06/28/2023 01:43 Chloride 94 mmol/L (Low)?? 06/28/2023 01:43 Bicarbonate Level 34 mmol/L (High)?? 06/28/2023 01:43 Anion Gap 11 ()?? 06/28/2023 01:43 Glucose Level 105 mg/dL (High)?? 06/28/2023 01:43 BUN 23 mg/dL ()?? 06/28/2023 01:43 Creatinine-Blood 0.8 mg/dL ()?? 06/28/2023 01:43 Estimated GFR Creatinine 88 ML/MIN/1.73 M2 ()?? 06/28/2023 01:43 Calcium 10.0 mg/dL ()?? 06/28/2023 01:43 Phosphorus 4.2 mg/dL ()?? 06/28/2023 01:43 Magnesium 1.9 mg/dL ()?? 06/28/2023 01:43 Vitamin B12 Level 802 pg/mL ()?? 06/28/2023 01:43 ?? ENDOCRINE/TUMOR MARKER TSH 6.99 uIU/mL (High)?? 06/28/2023 01:43 ?? URINE OTHER Est Creatinine Clearance 58.19 mL/min ()?? 06/28/2023 02:59 ? Assessment/Plan Diagnoses Chronic respiratory failure ??(J96.10) Complete rotator cuff tear ??(M75.120) Metabolic alkalosis ??(E87.3) SHO on CPAP ??(G47.33) Pleural effusion ??(J90) 1. ??Acute hypoxemic respiratory failure ??(J96.01) 2. ??Atelectasis ??(J98.11) 3. ??COPD with exacerbation ??(J44.1) ?? Assessment:??68-year-old F with a PMH??incl??PAD; COPD 2l NC at night; idiopathic neuropathy; HTN; RA; SHO on home CPAP; was admitted for right rotator cuff surgery on 06/15/2023, complicated by postop acute on chronic hypoxic resp failure. ?? Acute on chronic hypoxic??respiratory failure COPD exacerbation Post op Atelectesis Possible CAP SHO CT angio chest 06/17 showed no PE however showed lung nodules. No evidence of infiltrate but right pleural effusion. S/p short Prednisone taper 06/21-. S/p Ceftriaxone/Azithro course. - Breo, albuterol??PRN (on Trelegy at home) - Mucomyst, incentive spirometry, volara for Chest PT - Bipap 16/8, Vt 430-480 - F/u CT chest in 3-6 months to f/u lung nodules! ?? Acute on chronic diastolic heart failure [EF 60 to 65%]? S/p IV Lasix. - Back to Lasix 20 mg po qd home dose - I+Os, daily weights ?? 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 Right rotator cuff surgery 06/15?? - NWB RUE, no shoulder ROM. May move elbow/wrist/fingers as tolerated.?? - Pillow behind elbow at all times to prevent shoulder hyperextension - OT - Pain control,??pregabalin 75 mg 3 times daily ?? RA: Sarilumab,??sulfasalazine ?? Macrocytic anemia: Hemoglobin 10-11. Vit B12 level??and TSH nl - Check folic acid level (low normal 2021) ? Discharge Planning:??Wean down oxygen further as possible, home o2 eval, anticipate d/c home in am. ? * John Sheehan DO: PERFORM Event Display: Progress Note Hospital Authored Date: Patient: ??ELKE DAVID ? Age:??68 Years?Sex:??Female?:??1955?? Subjective Patient had difficulty tolerating auto CPAP overnight, she reports she did not know what was going on but that there were alarms going off??throughout the entire time she was wearing it so it was taken off early Patient was able to??de-escalate??oxygen support down to 3 L nasal cannula She denies any changes in her breathing, reports that she generally still feels quite comfortable??and is motivated to continue walking around the unit like she did yesterday afternoon Review of Systems Reviewed and pertinent for the following Reports mild right shoulder pain Denies??shortness of breath, cough, wheeze, chest pain, lower extremity edema Objective Temperature?98.5 ?(11:10) Systolic Blood Pressure?113 ?(11:10) Diastolic Blood Pressure?56 ?(11:10) Pulse?80 ?(11:10) SpO2?91 ?(11:10) Respiratory Rate?17 ?(11:10) ?? Intake/Output? 06/16 16:23 06/28 07:00 06/27 07:00 06/26 07:00 06/25 07:00 ?? 06/28 12:23 06/28 12:23 06/28 06:59 06/27 06:59 06/26 06:59 Intake ?73135 ?360 ? 1430 ?720 ?720 Output ?62683 ?200 ? 2200 ? 2150 ? 1800 Net Total ?-1370 ?160 ? -770 ?-1430 ?-1080 ? Urine Count ? 31 ?0 ?5 ?2 ?5 ?? Physical Exam General Appearance: no acute distress HEENT: Mucous membranes moist, sclerae anicteric Cardiovascular: RRR S1 and S2 heard with no M/R/G. No JVD. Respiratory:??Breathing even and unlabored on nasal cannula. ??No wheezes, rales, rhonchi GI: Soft. Nontender and nondistended. Normal bowel sounds present throughout abdomen.?? MS:??Right shoulder in sling Neuro:?AOx3 Psych: Affect appropriate Results Labs reviewed and pertinent for WBC 13.1, hemoglobin 10.5, hematocrit 34.1, bicarb 34, TSH 6.99 Assessment/Plan Assessment:?? #Acute respiratory failure with hypoxia #Atelectasis #COPD #SHO on CPAP ?? Suspecting ongoing respiratory failure due to atelectasis superimposed on baseline COPD, though??oxygen requirement seems to have improved a bit overnight.??Due to the fact that she did not tolerate auto CPAP overnight, could??consider??trying her on??bilevel positive pressure??with??02/06, aiming at tidal volumes of 430-480 ?? Recommendations: -Continue Mucomyst 3-4 times daily with albuterol and nebulizer to improve airway clearance -Continue Volara for CPT -Continue incentive spirometry -Continue daily Breo Ellipta inhaler, can transition to her home regimen of Trelegy 1 puff daily ondischarge -Trial BiPAP 16/ overnight, aiming for Vt 430-480 ?? We will continue to follow. Recommendations discussed with?Edelmira ?Patient seen and discussed with attending physician, ??Liautaelizabet ?John Sheehan, , PGY-5 ?PCCM First Year Fellow ?#[id number] * Marisa Ceballos RN: PERFORM, SIGN, VERIFY Event Display: Progress Note Hospital Authored Date: Patient: ELKE DAVID Age: 68 years Sex: Female : 1955 Associated Diagnoses: None Author: Marisa Ceballos RN Findings Problem Related to Alteration in Musculoskeletal : Alteration in Musculoskeletal Func/new 06/28/2023 11:00 EDT Alteration in Musculoskeletal Related to Orthopedic Procedure Goals & Outcomes, Musculoskeletal Affected extremity will maintain color/motion/sensation, Pt able to perform ADL's to best of ability, Pt demonstrates precautions/exercise/ transfers per protocol, Pt will be free from complications of immobility, Pt will demonstrate ability to participate in AD L's, Pt will report acceptable level of comfort/pain relief Interventions, Musculoskeletal Monitor patients ambulation status, Encourage deep breathing & coughing exercises, Obtain assistive devices as needed BH Goals/Interventions, Musculoskeletal Yes Musculoskeletal, Problem Start 06/26/2023 13:49 Reviewed Plan with, Musculoskeletal Patient Patient Progression, Musculoskeletal Pt progressing according to plan . Nursing Data Vital Signs : VITAL SIGNS SECTION 06/28/2023 11:09 EDT Temperature 98.5 DegF Temperature Route Oral Pulse Rate 80 bpm Respiratory Rate 17 br/min Systolic Blood Pressure 113 mm Hg Diastolic Blood Pressure 56 mm Hg Blood pressure sites Arm, left Mean Arterial Pressure 75 mm Hg Pulse Pressure 57 mm Hg Oxygen Saturation 91 % L Mode of Delivery (Oxygen) Room air . Evaluation pt is on 3 liters she is stable and improving resp dim no shortness of breath she is being downgraded to medical . Consult note * Elsa Tierney MD: PERFORM Event Display: Consultation Note Authored Date: [id number] Patient: ??ELKE DAVID ? Age:??68 Years?Sex:??Female?:??1955?? Reason for Consultation Persistent hypoxia History of Present Illness Ms. Surinder vyas is a 68-year-old female with COPD and SHO with normally follows up with Dr. Luna in [place] pulmonary. ??At baseline, she uses Trelegy Ellipta daily??and??uses oxygen??2 L/min with her CPAP at night.?? She has rare use of daytime oxygen.?? She denies dyspnea on exertion. ??Shedid not have any symptoms suggestive of recent COPD exacerbation either.?? She was noted to have??hypoxia??after her??right rotator cuff surgery and has been placed on supplemental oxygen.?? She is required anywhere from 2 to 7 L/min via nasal cannula.?? Additionally??she was noted to have increased wheeze and was placed on prednisone??and also treated with ceftriaxone and azithromycin. ??The pred nisone has helped with her wheezing??but she continues to have significant oxygen need??she is currently on oxygen??6 L/min.?? She is using incentive spirometer??as well as Acapella for airway clearance. ??She is on scheduled DuoNeb.?? She is also??on CPAP??5 cm??with supplemental oxygen.?? She denies any increased cough, sputum production or chest pain. ??Work-up included a??CT of chest??on June 17??that noted small??right pleural effusion??along with dependent atelectasis of??right lower lobe and band of atelectasis in right middle lobe and left lower lobe??there are also ill-defined??part solid??groundglass nodules??measuring up to 10 mm??in right??upper lobe. Physical Exam Vitals & Measurements T:??97.8?F?? TMIN:??97.4?F?? TMAX:??98.7?F?? HR:??73??(Peripheral)?? RR:??18?? BP:??107/56?? SpO2:??93%?? General: no respiratory distress, on oxygen 6 L/min via nasal cannula Eye exam: no pallor, no icterus ENT: no oropharyngeal lesion Respiratory: Few crackles in both bases,??there is an expiratory wheeze bilaterally Cardiovascular: normal S1 S2 Extremities: no cyanosis, clubbing or edema Assessment/Plan 1. Acute respiratory failure with hypoxia??with CT chest mainly showing atelectasis. ??At baseline she has COPD??and uses oxygen with CPAP during sleep??and rarely during the daytime as needed.?? Rusty mmend??discontinuing??nebulized DuoNeb and in its place??adding??nebulized albuterol 2.5 mg with Mucomyst??3-4 times daily??to improve airway clearance.?? Change CPT mode??to [place].?? Up in chair and mobilize as tolerated. ??Can increase supplemental oxygen??with walking.?? Continue incentive spirometry.?? Repeat chest x-ray PA and lateral.?? Continue Breo daily Ellipta inhaler daily. ??At discharge can be switched to her home regimen of Trelegy Ellipta 1 puff daily.?? Her COPD exacerbation seems to be improving,??we can start??weaning her prednisone by 10 mg??every day.?? No need for additional antibiotic therapy as clinical history as well as CT chest findings not suggestive of pneumonia. ?? 2. ??SHO on CPAP with 2 L of oxygen??at baseline.?? Current CPAP settings are??CPAP of 5.?? Recommend changing CPAP setting to auto CPAP??10-15 cm with supplemental oxygen added to keep??oxygen??saturations??at the range of 88 to 92%. Problem List/Past Medical History Ongoing Alcoholism Allergic rhinitis Anxiety Asthma Backache Calcium pyrophosphate deposition disease Candidiasis Celiac disease Cellulitis of left foot Chronic low back pain Chronic obstructive lung disease Claudication Disorder of artery Diverticulitis of colon Enthesopathy of wrist AND/OR carpus Essential hypertension Ex-smoker Fibromyalgia Fibromyalgia Gastritis Gastroesophageal reflux disease Hypertensive disorder Hypokalemia Memory loss Obese class I Osteopenia Pain disorder associated with psychological and physical factors Plantar fascial fibromatosis Renal artery stenosis Rib pain post trauma Vitamin D deficiency Medications Inpatient acetaminophen 325 mg oral tablet, 975 mg, By Mouth, Every 8 hours Albuterol 0.083% inhalation katelyn, 2.5 mg= 3 mL, BAND Nebulizer, Every 4 hours, PRN Albuterol 0.5% inhalation katelyn, 2.5 mg= 0.5 mL, Neb, Every 6 hours, PRN albuterol CFC free 90 mcg/inh inhalation aerosol, 180 mcg= 2 puffs, Inhalation, 4 times a day, PRN aspirin 81 mg oral delayed release tablet, 81 mg, By Mouth, Daily atorvastatin 40 mg oral tablet, 40 mg, By Mouth, Daily in AM Breo Ellipta 100 mcg-25 mcg Inhaler, 1 puffs, Inhalation, Daily Calcium Citrate 315 mg + Vitamin D 250IU Tablet, 630 mg= 2 tablet, By Mouth, 2 times a day Ceftriaxone Inj, 1 Gm, IVPB, Every 24 hours Dilaudid Inj, 0.5 mg= 0.5 mL, IV Push Slowly, Every 2 hours, PRN docusate sodium 100 mg oral capsule, 100 mg= 1 capsule, By Mouth, 2 times a day Duloxetine, 30 mg, By Mouth, Daily in AM furosemide 20 mg oral tablet, 20 mg, By Mouth, Daily in AM magnesium oxide 400 mg oral tablet, 400 mg, By Mouth, Daily Melatonin Tablet, 6 mg, By Mouth, Daily at bedtime, PRN metoprolol extended release, 50 mg, By Mouth, Daily Mucomyst-10 Inhalation Solution, 2 mL, Neb, Every 6 hours, PRN oxyCODONE 5 mg oral tablet, 5 mg, By Mouth, Every 4 hours, PRN oxyCODONE 5 mg oral tablet, 10 mg, By Mouth, Every 4 hours, PRN Plavix 75 mg oral tablet, 75 mg, By Mouth, Daily predniSONE 50 mg oral tablet, 50 mg, By Mouth, Daily pregabalin 25 mg oral capsule, 75 mg, By Mouth, 3 times a day Pulmicort Inhalation Suspension, 0.25 mg= 2 mL, BAND Nebulizer, 2 times a day SulfaSALAZINE Tablet, 1000 mg, By Mouth, 2 times a day valsartan 40 mg oral tablet, 80 mg, By Mouth, Daily in AM Vitamin C 500 mg oral tablet, 500 mg, By Mouth, Daily Zofran Inj, 4 mg, IV Push, Every 8 hours, PRN Home acetaminophen 325 mg oral tablet, 975 mg, By Mouth, Every 8 hours aspirin 81 mg oral delayed release tablet, 81 mg= 1 tablet, By Mouth, Daily atorvastatin 40 mg oral tablet, 40 mg= 1 tablet, By Mouth, Daily in AM calcium (as carbonate)-vitamin D 500 mg-400 intl units oral tablet, By Mouth, Daily Cymbalta 30 mg oral enteric coated capsule, 30 mg= 1 capsule, By Mouth, Daily in AM docusate sodium 100 mg oral capsule, 100 mg= 1 capsule, By Mouth, 2 times a day furosemide 20 mg oral tablet, 20 mg= 1 tablet, By Mouth, Daily in AM Kevzara 150 mg/1.14 mL subcutaneous solution, Subcutaneous Infusion, Every 14 days metoprolol 25 mg oral tablet, extended release, 50 mg= 2 tablet, By Mouth, Daily oxyCODONE 5 mg oral tablet, 5 mg, By Mouth, Every 4 hours, PRN oxyCODONE 5 mg oral tablet, 10 mg, By Mouth, Every 4 hours, PRN Oxygen Plavix 75 mg oral tablet, 75 mg= 1 tablet, By Mouth, Daily pregabalin 75 mg oral capsule, 75 mg= 1 capsule ProAir HFA 90 mcg/inh inhalation aerosol with adapter, 2 puffs, Inhalation, 4 times a day, PRN sulfaSALAzine 500 mg oral tablet, 1000 mg= 2 tablet, By Mouth, 2 times a day Trelegy Ellipta, Inhalation, Daily, PRN valsartan 80 mg oral tablet, 80 mg= 1 tablet, By Mouth, Daily in AM Vitamin E, By Mouth, Daily Allergies Levaquin??(itchy) benazepril??(cough) celecoxib??(gi upset) Social History Alcohol Use: Never. 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 Substance Abuse Use: Never. [id number] history of smoking prior to quitting 20 years ago Family History CAD - Coronary artery disease: Father. * Dominique ULRICH, Roque: PERFORM, MODIFY Event Display: Consultation Note Authored Date: [id number] Patient: ??ELKE DAVID ? Age:??68 Years?Sex:??Female?:??1955?? Chief Complaint/Reason for Consultation SOB History of Present Illness 68-year-old lady with PMH of PAD, COPD not on home oxygen; idiopathic neuropathy; HTN; RA; SHO on home CPAP; was admitted for orthopedic surgery right cortical cuff repair, subacromial decompression,distal clavicular excision, biceps tenotomy done on 06/15/2023; since then patient has been on 4 L O2 via NC, and complaints of wheezing and dyspnea, hence medicine consulted. ?? Patient is a former smoker, has history of COPD, uses inhalers at home, last exacerbation was in last winter.?? She mentioned that she has been feeling wheezy, and complained of difficulty breathing.?? She also has SHO, has not used CPAP last night.?? Also she has not been using her incentive spirometry. She denies any chest pain, dizziness, fevers, chills, cough, leg edema.?? She does not have history of heart failure, and appears euvolemic. ?? She has been afebrile, vitally stable other than elevated BP, and requiring 4 L O2 to maintain satsabove 92%. On review of labs, no leukocytosis, no significant anemia. ?? CXR was ordered, which showed right lung base atelectasis versus infiltrate; mild left lung base atelectasis; possible small bilateral pleural effusions. ?? On review of cardiology note from 2019, it is mentioned that patient has chronic lung disease including restrictive and obstructive lung disease; echo from December 2019 showed normal LVEF, moderate diastolic dysfunction, normal RV ventricular size and systolic function, mild aortic stenosis, mild to moderate AR. ?? On review of meds, patient is on??p.o. Lasix 20 mg once daily, unclear if patient has??diastolicheart failure, not clear from??records.?? No echo at??our records. Review of Systems Constitutional: Negative for fevers, chills, night sweats, weight changes, appetite changes. HEENT: Negative for headache, vision changes, hearing loss, nasal congestion, sore throat, neck pain/stiffness. Lungs and CVS: Positive for??SOB, wheezing. ??Negative for cough, orthopnea, PND chest pain, palpitations, dizziness, pedal edema. : Negative for dysuria, urgency, frequency, hematuria, incontinence. GIT: Negative for nausea, vomiting, abdominal pain, diarrhea, constipation. Neuro: Negative for speech difficulty, motor weakness, sensory changes, balance problems, vertigo. Back: Negative for back pain. Psych: Negative for depressed mood, anxiety. Skin and MSK: Positive for??right shoulder pain; otherwise??negative for new rash, new arthralgias. Objective Vital Signs?? Temperature: 98.6 DegF (06/16/23 23:21:00) Temperature Route: Oral (06/16/23 23:21:00) Pulse Rate: 67 bpm (06/16/23 23:21:00) Respiratory Rate: 19 br/min (06/16/23 23:21:00) Systolic Blood Pressure: 130 mm Hg (06/16/23 23:21:00) Diastolic Blood Pressure: 72 mm Hg (06/16/23 23:21:00) Blood pressure sites: Arm, left (06/16/23 23:21:00) Mean Arterial Pressure: 91 mm Hg (06/16/23 23:21:00) Pulse Pressure: 58 mm Hg (06/16/23 23:21:00) Oxygen Saturation: 95 % (06/16/23 23:21:00) Liters per Minute: 4 L/min (06/16/23 11:10:00) Mode of Delivery (Oxygen): CPAP (06/16/23 23:21:00) Early Warning Score: 2 (06/16/23 23:22:26) ? Physical Exam General: Patient Awake, alert, oriented x3.??Not in acute distress.??Able to speak in full sentences.??Following commands appropriately. HEENT: NC/AT, PERRLA, no pallor, no icterus, moist mucous membranes. Neck: Supple, no JVD, no thyromegaly, no cervical LAD Resp: Diminished breath sounds??bilaterally,??with occasional wheezing.?? No crackles or rhonchi appreciated. CVS: Regular rhythm.??Normal S1-S2 heard.??No murmurs appreciated. Abd: Soft, nondistended, nontender.??Normoactive bowel sounds. Neuro: Moving all 4 limbs freely.??Speech normal.??No obvious gross focal neuro deficit appreciated.?? Limited movement of right upper extremity??given recent surgery??pain. Ext: Warm. B/L pedal pulses palpable.?? No LE edema b/l.?? Right upper extremity sling in place. Assessment/Plan Diagnoses Acute hypoxemic respiratory failure ??(J96.01) Atelectasis ??(J98.11) COPD with exacerbation ??(J44.1) Chronic respiratory failure ??(J96.10) Complete rotator cuff tear ??(M75.120) Metabolic alkalosis ??(E87.3) SHO on CPAP ??(G47.33) Pleural effusion ??(J90) ?? Assessment:??68-year-old lady with PMH of PAD, COPD not on home oxygen; idiopathic neuropathy; HTN;RA; SHO on home CPAP; was admitted for orthopedic surgery right cortical cuff repair, subacromial decompression, distal clavicular excision, biceps tenotomy done on 06/15/2023; since then patient has been on 4 L O2 via NC;??medicine consulted for evaluation of??persistent oxygen requirement and dyspnea: ?? Acute hypoxemic respiratory failure (J96.01):??-Likely??multifactorial, in setting of??COPD exacerbation,??atelectasis.??Unclear if there is component of??diastolic heart failure, patient has??bilateral pleural effusions, and is on Lasix at home.??Unclear from cardiology note??from??2022 patient has diastolic heart failure. Recommendations: -Treat underlying COPD exacerbation??and atelectasis. -If patient does not get better,??consider getting D-dimer??further work- up??including??CT angio??chest??to look for additional??pathology;??consider getting??repeat echo. ?? COPD with exacerbation (J44.1):??Patient is a former smoker, has history of COPD, uses inhalers at home, last exacerbation was in last winter. She mentioned that she has been feeling wheezy, and complained of difficulty breathing. Recs: -Nebs: DuoNebs scheduled;??Pulmicort; Brovana -Avoid??systemic steroids??given recent??surgery ?? Atelectasis (J98.11):??-Likely from??recent??anesthesia and surgery. -Continue incentive spirometry, patient educated on same. ?? Pleural effusion (J90):??-Unclear if patient has??history of heart failure.??Continue home??p.o. Lasix 20 mg once daily,??if patient??does not get better,??patient might need??repeat echo??outpatient. ?? SHO on CPAP (G47.33):??-Continue home CPAP ?? Chronic respiratory failure (J96.10):??-Likely in the setting of COPD??and SHO. ?? Complete rotator cuff tear (M75.120):??-Management as per orthopedic surgery ?? Metabolic alkalosis (E87.3):??-Likely in setting of??chronic??hypercapnia??from COPD and??SHO. ?? Date & Time of service: 06/16/23; around??9 PM I spent a total of??58+ minutes, including both [id number] and [id number] time on the date of the encounter, addressing the above diagnoses. Activities performed in this time include chart review, obtaining / reviewing history, performing a medically necessary evaluation, documentation, charting and counseling. ?? Please note: This note has been prepared using voice recognition software. As a result errors may occur. When identified these equity research associate errors have been corrected.??While every attempt is made to correct errors during dictation, errors may still exist. ?? Recommendations relayed to the primary??team, medicine will continue to follow the patient,??please reach out??for any additional??questions or concerns. ? Histories Allergies Allergies ?(Active and Proposed Allergies Only) celecoxib? (Severity: Unknown severity, Onset: 06/12/2023) ?Reactions: gi upset Levaquin? (Severity: Unknown severity, Onset: Unknown) ?Reactions: itchy Glutens? (Severity: Unknown severity, Onset: Unknown) ?Reactions: Amlodipine adverse reaction, intolerance benazepril? (Severity: Unknown severity, Onset: Unknown) ?Reactions: cough ? Past Medical History/Problem List Active Problems??(31) Alcoholism Allergic rhinitis Anxiety Asthma Backache Calcium pyrophosphate deposition disease Candidiasis Celiac disease Cellulitis of left foot Chronic low back pain Chronic obstructive lung disease Claudication Disorder of artery Diverticulitis of colon Enthesopathy of wrist AND/OR carpus Essential hypertension Ex-smoker Fibromyalgia Fibromyalgia Gastritis Gastroesophageal reflux disease Hypertensive disorder Hypokalemia Memory loss Obese class I Osteopenia Pain disorder associated with psychological and physical factors Plantar fascial fibromatosis Renal artery stenosis Rib pain post trauma Vitamin D deficiency ? Past Surgical History No surgery history documented. ? Social History Alcohol Details:??Use: Never. 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 Substance Abuse Details:??Use: Never. Tobacco Details:??Former smoker, Type: Cigarettes. ? Family History Father: CAD - Coronary artery disease ? Medications Home Medications Acetaminophen (acetaminophen 325 mg oral tablet)?975?Milligram?By Mouth?Every 8 hours Albuterol (ProAir HFA 90 mcg/inh inhalation aerosol with adapter)?2?puff(s)?Inhalation?4 times a day?as needed?Wheezing/Shortness of Breath Aspirin (aspirin 81 mg oral delayed release tablet)?1?tab(s)?81?Milligram?By Mouth?Daily Atorvastatin (atorvastatin 40 mg oral tablet)?1?tab(s)?40?Milligram?By Mouth?Daily in AM Calcium And Vitamin D Combination (calcium (as carbonate)-vitamin D 500 mg-400 intl units oral tablet)?By Mouth?Daily?ORAL, TABLET, 0 Refill(s), Clopidogrel (Plavix 75 mg oral tablet)?75?Milligram?1?tablet?By Mouth?Daily Docusate (docusate sodium 100 mg oral capsule)?100?Milligram?1?capsule?By Mouth?2times a day Duloxetine (Cymbalta 30 mg oral enteric coated capsule)?1?capsule?30?Milligram?By Mouth?Daily in AM?ORAL, CAPSULE, DELAYED RELEASE PELLETS, 0 Refill(s), fluticasone/umeclidinium/vilanterol (Trelegy Ellipta)?Inhalation?Daily?as needed?Wheezing/Shortness of Breath Furosemide (furosemide 20 mg oral tablet)?20?Milligram?1?tablet?By Mouth?Daily Silvia Metoprolol (metoprolol 25 mg oral tablet, extended release)?50?Milligram?2?tablet?ByMouth?Daily?ORAL, TABLET, EXTENDED RELEASE, 0 Refill(s), Oxycodone (oxyCODONE 5 mg oral tablet)?5?Milligram?By Mouth?Every 4 hours?as needed?Pain , Moderate Oxycodone (oxyCODONE 5 mg oral tablet)?10?Milligram?By Mouth?Every 4 hours?as needed?Pain , Severe Pregabalin (pregabalin 75 mg oral capsule)?1?capsule?75?Milligram?TAKE 1 CAPSULE BY MOUTH EVERY 8 HOURS sarilumab (Kevzara 150 mg/1.14 mL subcutaneous solution)?Subcutaneous Infusion?Every 14 days SulfaSALAZINE (sulfaSALAzine 500 mg oral tablet)?2?tab(s)?1,000?Milligram?By Mouth?2 times a day Valsartan (valsartan 80 mg oral tablet)?80?Milligram?1?tablet?By Mouth?Daily in AM Vitamin E?By Mouth?Daily ? Results Recent Labs BLOOD COUNT & DIFF WBC 9.9 k/mm3 ()?? 06/16/2023 01:07 RBC 3.20 m/mm3 (Low)?? 06/16/2023 01:07 Hgb 10.9 Gm/dL (Low)?? 06/16/2023 01:07 Hct 34.8 % (Low)?? 06/16/2023 01:07 MCV 108.8 femtoliters (High)?? 06/16/2023 01:07 MCH 34.1 pg (High)?? 06/16/2023 01:07 MCHC 31.3 g/dL (Low)?? 06/16/2023 01:07 Platelet Count 229 k/mm3 ()?? 06/16/2023 01:07 RDW-SD 50.2 femtoliters (High)?? 06/16/2023 01:07 MPV 10.7 femtoliters ()?? 06/16/2023 01:07 Nucleated RBC (Automated) 0.0 #/100 WBC'S ()?? 06/16/2023 01:07 Abs. NRBC 0.0 k/mm3 ()?? 06/16/2023 01:07 ?? CARDIAC CK, Total 50 units/L ()?? 06/16/2023 01:07 ?? CHEM GENERAL Sodium 142 mmol/L ()?? 06/16/2023 01:07 Potassium 5.2 mmol/L ()?? 06/16/2023 01:07 Chloride 98 mmol/L ()?? 06/16/2023 01:07 Bicarbonate Level 34 mmol/L (High)?? 06/16/2023 01:07 Anion Gap 10 ()?? 06/16/2023 01:07 BUN 16 mg/dL ()?? 06/16/2023 01:07 Creatinine-Blood 1.0 mg/dL ()?? 06/16/2023 01:07 Estimated GFR Creatinine 61 ML/MIN/1.73 M2 ()?? 06/16/2023 01:07 ?? URINE OTHER Est Creatinine Clearance 46.55 mL/min ()?? 06/16/2023 03:21 ? Note * Anahi Hall RN: PERFORM Event Display: Discharge/Transfer Note Hospital Authored Date: Nursing Discharge Note Entered On: 06/29/2023 14:07 EDT Performed On: 06/29/2023 14:07 EDT by Anahi Hall RN Nursing Discharge Note 2 Discharge Time : 06/29/2023 14:35 EDT Anahi Hall RN - 06/29/2023 18:30 EDT Discharge Level of Care at Discharge : Homehealth/VNA Discharge VNA/Hospice/Home Care(v001) : [facility]ie Patient Left Unit Via : Ambulance Patient Accompanied Off Unit with : Ambulance/Chair Van Personnel Handover Given to Transport Personnel : Yes DC Instructions Provided & Signed by Pt : No Patient Understands D/C Instructions : Yes Patient Instructions Discharge Signed : No Did Pt have Specialty Bed or Wound Vac : No Anahi Hall RN - 06/29/2023 14:07 EDT * Robert Smiely MD: PERFORM Event Display: Discharge/Transfer Note Hospital Authored Date: [id number] Patient: ??SURINDER VYAS ELKE ? Age:??68 Years?Sex:??Female?:??1955?? Patient Information Discharge Location: D6A Primary Care Physician: Romelia ULRICH, Fe Dubois Admit Date/Time: 06/16/23 16:23 Discharge Disposition Discharge Disposition: Home with Home Health Discharge Diagnosis ?? Acute on chronic hypoxic??respiratory failure COPD with exacerbation (J44.1) Chronic respiratory failure (J96.10) Complete rotator cuff tear (M75.120) Metabolic alkalosis (E87.3) SHO on CPAP (G47.33) Pleural effusion (J90) ?? _ Discharge Medications Acetaminophen (acetaminophen 325 mg oral tablet)?650?Milligram?By Mouth?Every 6 hours?as needed?for 7?Days?and ??for TEMP >100.4?Pain , Mild Albuterol (ProAir HFA 90 mcg/inh inhalation aerosol with adapter)?2?puff(s)?Inhalation?4 times a day?as needed?for 30?Days?Wheezing/Shortness of Breath Aspirin (aspirin 81 mg oral delayed release tablet)?1?tab(s)?81?Milligram?By Mouth?Daily Atorvastatin (atorvastatin 40 mg oral tablet)?1?tab(s)?40?Milligram?By Mouth?Daily in AM Calcium And Vitamin D Combination (calcium (as carbonate)-vitamin D 500 mg-400 intl units oral tablet)?By Mouth?Daily?ORAL, TABLET, 0 Refill(s), Clopidogrel (Plavix 75 mg oral tablet)?75?Milligram?1?tablet?By Mouth?Daily Docusate (docusate sodium 100 mg oral capsule)?100?Milligram?1?capsule?By Mouth?2times a day Duloxetine (Cymbalta 30 mg oral enteric coated capsule)?1?capsule?30?Milligram?By Mouth?Daily in AM?ORAL, CAPSULE, DELAYED RELEASE PELLETS, 0 Refill(s), fluticasone/umeclidinium/vilanterol (Trelegy Ellipta 200 mcg-62.5 mcg-25 mcg/inh inhalation powder)?1?puff(s)?Inhalation?Daily?for 30?Days?at the same time every day Furosemide (furosemide 20 mg oral tablet)?20?Milligram?1?tablet?By Mouth?Daily Silvia Metoprolol (metoprolol 25 mg oral tablet, extended release)?50?Milligram?2?tablet?ByMouth?Daily?ORAL, TABLET, EXTENDED RELEASE, 0 Refill(s), Oxycodone (oxyCODONE 5 mg oral tablet)?5?Milligram?By Mouth?Every 6 hours?as needed?for 5?Days?Pain , Moderate Pregabalin (pregabalin 75 mg oral capsule)?1?capsule?75?Milligram?TAKE 1 CAPSULE BY MOUTH EVERY 8 HOURS sarilumab (Kevzara 150 mg/1.14 mL subcutaneous solution)?Subcutaneous Infusion?Every 14 days SulfaSALAZINE (sulfaSALAzine 500 mg oral tablet)?2?tab(s)?1,000?Milligram?By Mouth?2 times a day Valsartan (valsartan 80 mg oral tablet)?80?Milligram?1?tablet?By Mouth?Daily in AM Vitamin E?By Mouth?Daily ? PCP Follow-Up/Heads-Up Please follow-up for pulmonary nodule. Hospital Course ??68-year-old F with a PMH??incl??PAD; COPD 2l NC at night; idiopathic neuropathy; HTN; RA; SHO on home CPAP; was admitted for right rotator cuff surgery on 06/15/2023, complicated by postop acute on chronic hypoxic resp failure. ?? She was treated for: ?? Acute on chronic hypoxic??respiratory failure COPD exacerbation Post op Atelectasis Possible CAP SHO CT angio chest 06/17 showed no PE however showed lung nodules. No evidence of infiltrate but right pleural effusion. S/p short Prednisone taper 06/21-. S/p Ceftriaxone/Azithro course. - Breo, albuterol??PRN (on Trelegy at home) -Given Mucomyst, incentive spirometry, volara for Chest PT -Discharged with Trelegy and albuterol. -Pulmonary rehab nurse consulted.?? Suggested 2 L oxygen??at rest and 3 L ambulation. ??Continue CPAP. - F/u CT chest in 3-6 months to f/u lung nodules!?? Discussed with the patient she will follow-up with PCP ?? Patient is feeling much better. ??Shortness of breath improved. ??No wheezing on exam??leukocytosislikely due to steroid use ?? Acute on chronic diastolic heart failure [EF 60 to 65%]? S/p IV Lasix. - Back to Lasix 20 mg po qd home dose -'s looks euvolemic on exam ?? 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 Right rotator cuff surgery 06/15?? - NWB RUE, no shoulder ROM. May move elbow/wrist/fingers as tolerated.?? - Pillow behind elbow at all times to prevent shoulder hyperextension - Pain control,??Tylenol Oxycodone as needed and??pregabalin 75 mg 3 times daily. ??E prescribed oxycodone for 5 days ?? RA: Sarilumab,??sulfasalazine ?? Macrocytic anemia: Hemoglobin 10-11. Vit B12 level??and TSH nl - Check folic acid level (low normal 2021) ?? Physical therapy consult recommended rehab. Patient refused to go to rehab and wants to go home. Case management consulted for discharge plan. ? Objective Assessment and Plan Discharge Planning:? Measurements?? Height: 161 cm (06/29/23) Weight: 80.1 kg (06/18/23) Dry Weight: 80.1 kg (06/18/23) Body Mass Index:??30.9 kg/m2??Critical (06/18/23) ? Vital Signs?? Temperature: 97.7 DegF (06/29/23 07:47:00) Temperature Route: Oral (06/29/23 07:47:00) Pulse Rate: 77 bpm (06/29/23 08:51:00) Respiratory Rate: 20 br/min (06/29/23 07:47:00) Systolic Blood Pressure: 123 mm Hg (06/29/23 08:51:00) Diastolic Blood Pressure: 55 mm Hg (06/29/23 08:51:00) Blood pressure sites: Arm, left (06/29/23 07:47:00) Mean Arterial Pressure: 78 mm Hg (06/29/23 07:47:00) Pulse Pressure: 68 mm Hg (06/29/23 07:47:00) Oxygen Saturation:??91 %??Low (06/29/23 08:00:00) Liters per Minute: 3 L/min (06/29/23 08:00:00) Mode of Delivery (Oxygen): Nasal cannula (06/29/23 08:00:00) Early Warning Score: 4 (06/29/23 08:57:09) ? . Physical Exam Constitutional: Alert, in no distress. Mental Status: Oriented to person, place and time. Head: Normocephalic. Neck: Supple, Full range of motion. Respiratory: Clear to auscultation. No wheezing, rales or rhonchi. Cardiovascular: S1 S2 regular. No murmurs, rubs or gallops. Gastrointestinal: Abdomen soft, non-tender, non-distended. Normal bowel sounds. Neurologic: Cranial nerves II-XII grossly intact. No focal neurological deficits. Psychiatric: Normal mood and affect Surgical Procedures SAD DCE with Rotator Cuff Repair Shoulde 06/15/2023 12:47 Tenodesis Bicep Open 06/15/2023 12:47 Tenotomy 06/15/2023 12:47 Pending Results Add On Lab Order ordered on 06/28/2023 Basic Metabolic Panel ordered on 06/27/2023 Blood Gas Arterial ordered on 06/23/2023 CBC ordered on 06/27/2023 Magnesium Level ordered on 06/27/2023 Phosphorus Level ordered on 06/27/2023 Sputum Culture w/ Gram Smear ordered on 06/28/2023 Patient Education Titles Surgery Medical Daystay Surgical Overnight Discharge Instructions?? Follow-Up Appointments Added Follow Up ?Time Frame ?Comments Romelia ULRICH, Fe Dubois?1 to 2 weeks Lamar ULRICH, Marilee Whitaker?Call for questions/concerns and follow up appointment. Post Discharge Care Discharge ?06/29/23 11:10:00 EDT Discharge Prescriptions ?ePrescribed, ??06/17/23 7:45:00 EDT ?ePrescribed, ??06/15/23 13:51:00 EDT Home Health Face to Face *Denotes mandatory roman ?? *I certify that this patient is under my care and that I or an allowed non- physician working with me had a face to face encounter with the patient on this date:??06/29/2023 11:15 ?? *The encounter with the patient was in whole, or in part, for the following medical condition, which is the primary diagnosis(es) for home health care:??Acute hypoxemic respiratory failure (J96.01) Atelectasis (J98.11) COPD with exacerbation (J44.1) Chronic respiratory failure (J96.10) Complete rotator cuff tear (M75.120) Metabolic alkalosis (E87.3) SHO on CPAP (G47.33) Pleural effusion (J90) ? *Select the indications for the discipline/s that are being arranged for this patient. Nursing (select all that apply): [_] None [*] Medication management (reconciliation, teaching)?? [*_] Chronic disease management?? [*_] Wound care and treatment?? [_] Home safety evaluation [_] Administer SQ/IM/IV medications?? [_] Cath care?? [_] Drain care?? [_] Trach or GT care?? Other _ Occupation Therapy (select all that apply): [_] None [*_] ADL Management [_*] Fall prevention training [*_] Energy conservation [_] Cognitive training Other _ Physical Therapy (select all that apply): [*_] None [_*] Functional mobility training [*_] Home exercise program to strengthen [*_] Increase ROM?? [*_] Falls prevention training [_*] Home maintenance program for chronic disease Other _ Speech Therapy (select all that apply): [_] None [_] Swallow evaluation and training [_] Speech and language training [_] Cognitive training to process, organize, and/or recall information Other _ ? *Homebound due to (select all that apply): [_] Inability to leave home without assistance/supervision [_] Inability to ambulate without assistance [_*] Pain [*_] Decreased strength and endurance [_] Unsteady gait [_] Severe SOB and fatigue [_] Impaired transfers [_] Inability to negotiate stairs [_] Limited weight bearing [_] Mental status change? *Physician Signature:??Robert Smiley MD ?? *By signing this, I certify that I have personally evaluated the patient and agree with the findings and recommendations as documented above. ? Results Imaging(s) ?CT Angio Chest ?? 06/17/2023 08:58??by Gareth ULRICH, Eliseo ? IMPRESSION: ?? 1. No evidence of pulmonary embolism. No acute abnormality in the chest. 2. Multiple nodules in the right upper lobe measuring up to 10 mm. Short-term follow-up in 3-6 months is recommended. ?Chest 2 Views Frontal and Lat ?? 06/27/2023 13:34??by Johnathan ULRICH, Randy Nathan ? IMPRESSION: ?? No change ?Echocardiogram - Complete ?? 06/20/2023 10:56??by Gorge ULRICH, Emily Rodríguez ?Summary ??The left ventricular size is normal. The left ventricular wall thickness is ??moderately increased. Normal LV systolic function. Ejection fraction is ??60-65%. There are no regional wall motion abnormalities. Unable to assess ??diastolic function due to severe mitral annulus calcification . ??Probably trileaflet aortic valve. The aortic valve appears moderately ??calcified. There is mild aortic stenosis. mean gradient is 14mmHg. BLAS ??1.49cm2. There is mild to moderate aortic regurgitation. ??The right ventricle is normal in size and function. ??There is a small pericardial effusion posteriorly. ??There is moderate to severe mitral annular calcification. There is trace ??mitral regurgitation. There is no significant mitral stenosis. ?? Comparison ??No prior study available for comparison. ? 35??minutes spent on discharge * Marilee Newton MD, V: PERFORM Event Display: Discharge/Transfer Note Hospital Authored Date: [id number] Date of Admission: 06/15/2023 Date of Discharge: 06/16/2023 Primary Diagnosis: Right rotator cuff tear Final/Discharge Diagnosis: Right rotator cuff tear Surgery: Right rotator cuff repair, subacromial decompression, distal clavicle excision, biceps tenotomy, 06/15/2023 Surgeon: Dr. Marilee Newton [facility] Summary: The patient was admitted for surgery as above. Surgery was uneventful. Pain has been controlled on Oxycodone 5-10mg q4h prn and Acetaminophen 1000mg q8h scheduled. DVT prophylaxis in the hospital was resuming patient's baseline dose of Plavix and baby Aspirin beginning on POD#1. Dressing is clean, dry and intact. Calves are soft and nontender. Able to ambulate with PT/OT withoutdifficulty. Labs have been satisfactory during the course of stay: Hb 10.9, electrolytes within normal limits. Hospital course has been unremarkable. Anticipates being discharged to home today. The patient will follow up with Dr. Newton at [facility] in approximately 2 weeks. Discharge Medications: Italics = NEW medications Acetaminophen (acetaminophen 325 mg oral tablet) 975 Milligram By Mouth Every 8 hours Albuterol (ProAir HFA 90 mcg/inh inhalation aerosol with adapter) 2 puff(s) Inhalation 4 times a day as needed Wheezing/Shortness of Breath Aspirin (aspirin 81 mg oral delayed release tablet) 1 tab(s) 81 Milligram By Mouth Daily Atorvastatin (atorvastatin 40 mg oral tablet) 1 tab(s) 40 Milligram By Mouth Daily in AM Calcium And Vitamin D Combination (calcium (as carbonate)-vitamin D 500 mg-400 intl units oral tablet) By Mouth Daily ORAL, TABLET, 0 Refill(s), Clopidogrel (Plavix 75 mg oral tablet) 75 Milligram 1 tablet By Mouth Daily Docusate (docusate sodium 100 mg oral capsule) 100 Milligram 1 capsule By Mouth 2 times a day Duloxetine (Cymbalta 30 mg oral enteric coated capsule) 1 capsule 30 Milligram By Mouth Daily in AMORAL, CAPSULE, DELAYED RELEASE PELLETS, 0 Refill(s), fluticasone/umeclidinium/vilanterol (Trelegy Ellipta) Inhalation Daily as needed Wheezing/Shortnessof Breath Furosemide (furosemide 20 mg oral tablet) 20 Milligram 1 tablet By Mouth Daily in AM Metoprolol (metoprolol 25 mg oral tablet, extended release) 50 Milligram 2 tablet By Mouth Daily ORAL, TABLET, EXTENDED RELEASE, 0 Refill(s), Oxycodone (oxyCODONE 5 mg oral tablet) 5 Milligram By Mouth Every 4 hours as needed Pain , Moderate Oxycodone (oxyCODONE 5 mg oral tablet) 10 Milligram By Mouth Every 4 hours as needed Pain , Severe Pregabalin (pregabalin 75 mg oral capsule) 1 capsule 75 Milligram TAKE 1 CAPSULE BY MOUTH EVERY 8 HOURS sarilumab (Kevzara 150 mg/1.14 mL subcutaneous solution) Subcutaneous Infusion Every 14 days SulfaSALAZINE (sulfaSALAzine 500 mg oral tablet) 2 tab(s) 1,000 Milligram By Mouth 2 times a day Valsartan (valsartan 80 mg oral tablet) 80 Milligram 1 tablet By Mouth Daily in AM Vitamin E By Mouth Daily Discharge Instructions: Activity: - Wear the sling to your operated arm at all times with no range of motion of the shoulder allowed for the first 6 weeks postop. - Do not bear weight (no pushing, pulling or lifting) with the operated arm for at least 12 weeks postoperatively - When in bed or a chair, place a small blanket or pillow BEHIND (not underneath) the elbow to keepthe arm in front of your body - Okay to move the elbow/wrist/fingers as tolerated - Intermittently apply ice to the shoulder for 20 minutes as needed for pain. Keep a close eye on your skin to prevent ice cabral while your limb is still numb. Dressings: Keep the tape and gauze dressing in place for 5 days. After 06/21/2023, you may remove the dressings and leave the incision open to air. Leave the underlying steri-strips in place to fall off on their own. Bathing/showering: - You should keep your dressings dry. If you are able to shower without getting your dressings wet,then you may certainly do so. Otherwise, sponge bathing may be easier. - After 06/21/2023, you may remove dressings and shower normally: allow soapy water to run over theincision but do not scrub. - Do not submerge the incision under water unti 4 weeks postop. - You may take your sling off to shower but may only let the arm dangle at your side while the sling is off. - It may be easier to sponge bathe for now. Medications: - You have been prescribed Oxycodone, a short-acting narcotic medication. Take this medication for pain as needed. Try to taper your use over the next week or two as your post-operative pain improves. - In addition, you should take Acetaminophen (Tylenol). Take this medication around the clock (but do not exceed 3 grams in a 24-hour period). This will help with your pain and decrease your need forthe narcotic medications. - Avoid anti-inflammatory type medications (also called NSAIDs) including ibuprofen, motrin, Advil,naproxen, naprosyn, and Alleve for the next 3 months. There is some evidence that these may slow bone remodeling, which would inhibit healing. - The pain medication you are on can cause constipation, so increase your intake of fluids and fiber while you are taking them. You may also take an lxav-boj-qzkaaeg stool softener, like Docusate or Senokot, to facilitate a bowel movement. - If you need a renewal on your narcotic pain medication, you need to give the Orthopedic clinic enough time to process your request. This can take up to three days, so plan accordingly. - No driving is allowed if taking narcotic pain medications. Anticoagulation: Continue your Aspirin and Plavix as per your usual doses. * Puja Adame: PERFORM Event Display: Discharge/Transfer Note Hospital Authored Date: [id number] Discharge date: 06/17/23 Discharge with O2 stable at baseline with ambulation. * Silvia Dumas RN: PERFORM Event Display: Patient Education/Instruction Authored Date: [id number] Surgery Adult Discharge Instructions [address] [address] Name: ELKE VYAS : 1955?? Visit: 06/15/2023 09:04?? Current Date: 06/15/2023 14:26 ?? Account: [id number]?? Surgery Discharge Instructions We would like to thank you for allowing us to assist you with your healthcare needs. The following includes patient education materials and information regarding your injury/illness. Our entire staffstrives to provide an excellent experience for our patients and their families. PLEASE ENSURE YOU FOLLOW-UP PER THE INSTRUCTIONS BELOW! ?? YOUR OPINION IS IMPORTANT TO US! Please complete the survey you may receive by mail or email. Your feedback will be used to make improvements to the healthcare experiences of our patients and their families. Surveys are administered by [email or web address] ?? If further treatment with your primary care physician or another doctor is recommended, it is important for you to keep the appointment. Call your primary care physician or return to the Emergency Department immediately if your condition worsens, fails to improve, or new symptoms develop. If you need to find a doctor, you can call [facility] [employer] [facility] for a referral at [phone] or toll free at [phone] ([phone]) or log in to [email or web address].. ?? [facility], in keeping with [facility] guidance, no longer requires face masks for staff, patientsor visitors in most situations. Similiar to time spent indoors at other locations, there is the chance that you were exposed to repiratory viruses during your time with us (such as flu or COVID-19). If you develop symptoms concerning for a viral respiratory infection, please seek testing (and treatment if indicated) from your medical provider or home test kit. ?? You can view and manage your care through the patient portal or by using a health care fly of your choosing. [employer] is a website that allows you to securely view your medical information including your hospital discharge summary, office visit summaries, medications and follow-up visits. You can also request appointments, renew medications, and request access to your medical information using a health care fly of your choosing, or just ask a question. You are entitled to know the individuals who participated in your treatment. This information is available within your medical record and will be provided upon your request. You can enroll at [email or web address] or register d uring your next office visit. You have been discharged from [facility], Patient Care Unit: [facility]??. If you have any questions regarding these instructions after you leave, please call us and we will be happy to assist you. [facility] Your Care Team Attending Physician Marilee Newton MD, V?? Discharging Providers Marilee Newton MD, V Reason for Admission R[employer]ATOR [employer] CS DS Primary Care Provider Fe León MD? Advance Directive Health Care Proxy on File No What to do next Instructions From Your Doctor ?? Orders?? evaluation by surgeon, ??06/15/23 13:51:00 EDT?? Prescriptions??, ??06/15/23 13:51:00 EDT?? Instructions from your Care Team ?? *Apply ice, on 20 minutes and off 40 minutes, while awake for 48 hours or as needed *Perform axillary care as instructed *May shower in 5 days (Wednesday) *No driving per Discharge Instructions, also no driving/ drinking alcohol while taking narcotics *Position arm forwardly flexed *Wear sling and swath as directed ?? You Need to Schedule the Following Appointments Follow Up with??Marilee Newton MD, V Why: Call for questions/concerns and follow up appointment. Where: [address] [place] [address] [place] [address]- Discharge Medications ELKE DAVID :1955 Visit Date:06/15/2023 Medications: Please continue your medications until treatment is completed or stopped by your provider. You may resume your daily prescription medications. Discuss any questions related to medications with your provider. What How Much When Instructions Next Dose Changed sarilumab (Kevzara 150 mg/ 1.14 mL subcutaneous solution) Subcutaneous Infusion Every 14 days Unchanged Albuterol (ProAir HFA 90 mcg/ inh inhalation aerosol with adapter) 2 puff(s) Inhalation 4 times a day as needed for Wheezing/Shortness of Breath Unchanged Aspirin (aspirin 81 mg oral delayed release tablet) 1 tab(s) Oral Daily Unchanged Atorvastatin (atorvastatin 40 mg oral tablet) 1 tab(s) Oral Daily in the morning Unchanged Calcium And Vitamin D Combination (calcium (as carbonate)-vitamin D 500 mg-400 intl unitsoral tablet) Oral Daily ORAL, TABLET, 0 Refill(s), ?? Unchanged Clopidogrel (Plavix 75 mg oral tablet) 1 tab(s) Oral Daily Unchanged Duloxetine (Cymbalta 30 mg oral enteric coated capsule) 1 capsule Oral Daily in the morning ORAL, CAPSULE, DELAYED RELEASE PELLETS, 0 Refill(s), ?? Unchanged fluticasone/ umeclidinium/ vilanterol (Trelegy Ellipta) Inhalation Daily as needed for Wheezing/Shortness of Breath Unchanged Furosemide (furosemide 20 mg oral tablet) 1 tab(s) Oral Daily in the morning Unchanged Metoprolol (metoprolol 25 mg oral tablet, extended release) 2 tab(s) Oral Daily ORAL, TABLET, EXTENDED RELEASE, 0 Refill(s), ?? Unchanged Oxygen Unchanged Pregabalin (pregabalin 75 mg oral capsule) 1 capsule TAKE 1 CAPSULE BY MOUTH EVERY 8 HOURS ?? Unchanged SulfaSALAZINE (sulfaSALAzine 500 mg oral tablet) 2 tab(s) Oral Twice a day Unchanged Valsartan (valsartan 80 mg oral tablet) 1 tab(s) Oral Daily in the morning Unchanged Vitamin E Oral Daily Allergies (NKA means No Known Allergies) Glutens??(intolerance) Levaquin??(itchy) benazepril??(cough) celecoxib??(gi upset) Education Materials Below is the list of Educational Leaflet Providered with your Discharge Instructions. Surgery Medical Daystay Surgical Overnight Discharge Instructions?? Valuables and Belongings I fully understand and agree that [facility] accepts no responsibility for all my personal property including clothing, toilet articles, radios, jewelry, dentures, hearing aids, rings, money, or any other property that is in my possession or is brought to me after admission. I understand certain valuables may be placed in a hospital safe for a short period of time. I understand that the hospital is not liable for loss or damage due to accident, fire, or other natural occurrence while said property is in the safe. I accept full responsibility for any personal property that I keep with me, and will not hold the hospital responsible in case of loss or disappearance. I acknowledge that i have been encouraged to send valuables and belongings home. ?? Review of Valuable and Belonging List: With patient Date for Pt to Sign Valuables/Belongings: 06/15/23 10:04:00 ?? Valuables & Belongings ?? Clothes Electronic devices Jewelry Monetary Items Personal devices Miscellaneous Medications (Valuables) Valuables at Bedside Pants, Shirt, Shoes Cell phone ?? Purse, Wallet ? Valuables Sent Home ? Valuables Sent to Security ? Common Emergency Awareness Tips IS IT A STROKE? Act FAST and Check for these signs: FACE Does the face look uneven? ARM Does one arm drift down? SPEECH Does their speech sound strange? TIME Call at any sign of stroke ?? Heart Attack Signs Chest discomfort: Most heart attacks involve discomfort in the center of the chest and lasts more than a few minutes, or goes away and comes back. It can feel like uncomfortable pressure, squeezing, fullness or pain. Discomfort in upper body: Symptoms can include pain or discomfort in one or both arms, back, neck, jaw or stomach. Shortness of breath: With or without discomfort. Other signs: Breaking out in a cold sweat, nausea, or lightheaded. Remember, MINUTES DO MATTER. If you experience any of these heart attack warning signs, call to get immediate medical attention! ?? Smoking can increase your chances of developing chronic health problems and can cause harmful effects to other family members in your house. If you smoke, you are strongly encouraged to quit. Please call [facility] at [phone] or [phone] ([phone]) or log in to [email or web address] for referrals to smoking cessation programs. ?? The National Suicide Prevention Hotline is available 10/05 if you or someone you know needs to find a reason to keep living. By calling 4-275-410-nizg (4219) you'll be connected to a skilled, trained counselor at a crisis center in your area. SURGERY DISCHARGE INSTRUCTIONS SIGNATURE PAGE ELKE DAVID Location:[facility] Registration Date and Time:06/15/2023 09:04 EDT Primary Care Physician: Romelia ULRICH, Fe Dubois, Attending Physician: Lamar ULRICH, Marilee Whitaker, I SURINDER ELKE VYAS, have received the above patient education materials/instructions and haveverbalized understanding. If ambulance or transport services are being used I further acknowledge being given a choice of service. ?? If you need to contact me, please call me at this number: . Patient/Parimutuel Ticket Checker Name: Elke Vyas Patient/Parimutuel Ticket Checker Signature: Relationship to Patient: self Witness Name/Signature: Date: 06/15/23 * Silvia Dumas RN: PERFORM Event Display: Patient Education Leaflets Authored Date: [id number] Surgery Medical Daystay Surgical Overnight Discharge Instructions ?? 295 Medical Daystay/Surgical Overnight Discharge Instructions ? Since your coordination and judgment may be altered by medication and/or anesthesia, a responsible adult must drive you home from the hospital. ? If you have received medication for pain or sedation while under our care, you should not drive, operate machinery, drink alcohol, or sign any legal documents for 24 hours.?? You should have someone with you at home tonight. ? Remain at home the day of discharge.?? You may be up and about unless otherwise instructed by your physician. ? You may resume your daily prescription medication schedule.?? Any depressant medication should be avoided for 24 hours unless otherwise instructed by your surgeon or anesthesiologist. ? Call your physician for a follow-up appointment.? If you experience unusual or severe pain not relied by your pain medication, excessive bleedingor drainage, persistent nausea and vomiting, excessive swelling or redness, foul odor from incisionsite or fever over 100.6F, you need to call your physician. ? A follow-up phone call by a nurse will be made the day after your procedure.?? If you have stayed with us over night, you will not be receiving a follow-up phone call. ? Nausea and vomiting are a common side effect of prescription pain medication.?? We recommend that pills are not taken on an empty stomach.?? While taking any prescription pain medication you should not drive or drink alcohol. ? Patient Care team information Care Team Personnel Name: Myrtle Lim RN Position: [facility] RN Member Role: Primary Care Nurse Name: Fe León MD Position: [facility] Physician - Primary Care Member Role: PCP Address: Address: [address] [place] [address] Name: Garett Osei RN Position: [facility] RN Member Role: Primary Care Nurse Name: Fe Harp RN Position: [facility] RN Member Role: Primary Care Nurse Name: Johanna Carmen RN Position: [facility] RN Member Role: Primary Care Nurse Name: Tiffany Zaldivar RN Position: [facility] RN Member Role: Primary Care Nurse Name: Huseyin Abrams RN Position: [facility] RN Member Role: Primary Care Nurse Name: Uma Herbert RN Position: [facility] RN Member Role: Primary Care Nurse Name: Marlena Byrne Position: [facility] RN Member Role: Primary Care Nurse Name: Ashley Gallardo RN Position: [facility] RN Member Role: Primary Care Nurse Name: Lorin Vu Position: [facility] AMB Nurse Member Role: Lifetime Consulting Physician Name: Opal Dumont RN Position: [facility] RN Member Role: Primary Care Nurse Name: Jamie Prince RN Position: [facility] RN Member Role: Primary Care Nurse Name: Dorothy Rosales RN Position: [facility] RN Member Role: Primary Care Nurse Name: Yee Melo RN Position: [facility] SN RN Member Role: Primary Care Nurse Name: Tracee Angelo RN Position: [facility] RN Member Role: Primary Care Nurse Name: Edda Ramirez RN Position: S RN Member Role: Primary Care Nurse Name: Garth Underwood RN Position: S RN Member Role: Primary Care Nurse Name: Anahi Hall RN Position: S RN Member Role: Primary Care Nurse Care Team Related Persons Name: GIOVANNICOLLINS DIAZLY Name: POLLY OTOOLE Address: home [address] [place] [id number] Name: TIFFANY VYAS Address: home [address] [place] [id number]
--- OUTSIDE RECORDS SUMMARY | 2023-12-07 10:42 | XMS_ITS | Continuity of Care Document ---
Author Name Unknown Organization [facility] Address [address] [place] [address]- Care Team Providers Care Twisting Operator Name Role Phone Not on Staff, PCP Primary Care Physician Unavail able [place] [facility] [place]18/20 [facility] [address] [place] [id number] [facility] Attending Physician: Nolan Vincent Admitting Physician: AdmNolan aleman Referring Physician: AdmtrNolan Allergies, Adverse Reactions, Alerts Substance Reaction Severity Status benazepril cough Active Levaquin Active celecoxib <not entered> Active Glutens Active amLODIPine-atorvastatin 1 Ac tive 1cough Immunizations Given and Recorded Vaccine Date Status Refusal Reason pneumococcal 23-valent vaccine 08/07/15 Given influenza virus vaccine, inactivated 08/07/15 Give n Medications aspirin 81 mg oral tablet 1 tablet = 81 mg, By Mouth, Daily, # 90 tablet, 2 Refills, Maintenance, 08/18/19 15:11:01 EDT, Tablet Start Date: 08/18/19 Status: Ordered atorvastatin 20 mg oral tablet 1 tablet, By Mouth, Daily, # 30 tablet, 4 Refills, Maintenance, 11/13/19 8:13:00 EST, [id number], 161.3, cm, 06/30/19 13:59:00 EDT, Height, 75, kg, 06/30/19 11:40:00 EDT, Dry Weight Start Date: 11/13/19 Status: Ordered calcium (as carbonate)-vitamin D 500 mg-400 intl units oral tablet ORAL, TABLET, 0 Refill(s),, 0 Refills, 05/17/19 13:06:00 EDT Start Date: 05/17/19 Status: Ordered CPAP Machine See Instructions, Maintenance, 04/13/16 16:39:38, Compound Start Date: 04/13/16 Status: Ordered Cymbalta 30 mg oral enteric coated capsule ORAL, CAPSULE, DELAYED RELEASE PELLETS, 0 Refill(s),, 0 Refills, 05/17/19 13:06:00 EDT Start Date: 05/17/19 Status: Ordered folic acid 1 mg oral tablet 1, tablet, By Mouth, Daily, # 90 tablet, Refills 1, Tot. Refills 1, Maintenance, 12/26/19 8:50:00 EDT, Route to Pharmacy Electronically, [facility]/pharmacy #[id number], 161.3, cm, 06/30/19 13:59:00 EDT, Height, 75, kg, 06/30/19 11:40:00 EDT, Dry Weight Start Date: 12/26/19 Status: Ordered Kevzara 150 mg/1.14 mL subcutaneous solution Subcutaneous Infusion, 0 Refills, Maintenance, 04/18/19 15:06:13 EDT Start Date: 04/18/19 Status: Ordered Lyrica 100 mg oral capsule ORAL, CAPSULE, 0 Refill(s),, 0 Refills, 05/17/19 13:06:00 EDT Start Date: 05/17/19 Status: Ordered magnesium oxide 400 mg oral tablet See Instructions, TAKE 1 TABLET THREE TIMES DAILY BY MOUTH NEED FOLLOW UP FOR BLOOD TEST, # 90 tablet, 3 Refills, Soft Stop, 12/27/19 11:00:00 EDT, [facility]/pharmacy #[id number], 161.3, cm, 06/30/19 13:59:00 EDT, Height, 75, kg, 06/30/19 11:40:00 EDT, Dry We... Start Date: 12/27/19 Status: Ordered metoprolol 25 mg oral tablet, extended release ORAL, TABLET, EXTENDED RELEASE, 0 Refill(s),, Refills 0, 05/17/19 13:06:00 EDT Start Date: 05/17/19 Status: Ordered omeprazole 20 mg oral enteric coated capsule 1 capsule, By Mouth, Daily, # 30 capsule, 1 Refills, Maintenance, 09/26/19 12:26:00 EST, 161.3, cm,06/30/19 13:59:23 EDT, Height, 75, kg, 06/30/19 11:40:11 EDT, Dry Weight Start Date: 09/26/19 Status: Ordered Oxygen 0 Refills, Maintenance, 04/13/16 16:39:56 Start Date: 04/13/16 Status: Ordered ProAir HFA 90 mcg/inh inhalation aerosol with adapter 2, puffs, Inhalation, 4 times a day, Refills 0, Maintenance, 04/13/16 16:37:10 Start Date: 04/13/16 Status: Ordered Spiriva = 18 mcg, Inhalation, Daily, 0 Refills, Maintenance, 04/13/16 16:39:28 Start Date: 04/13/16 Status: Ordered Vitamin B1 Daily, 0 Refills, Maintenance, 06/30/19 11:38:49 EDT Start Date: 06/30/19 Status: Ordered Vitamin B6 25 mg oral tablet 1 tablet = 25 mg, By Mouth, Daily, 0 Refills, Maintenance, 06/30/19 11:39:10 EDT Start Date: 06/30/19 Status: Ordered Problem List Condition Effective Dates Status Health Status Inform ant Alcoholism(Confirmed) Active Allergic rhinitis(Confirmed) Active Anxiety(Confirmed) Active Asthma(Confirmed) Active Backache(Confirmed) Active Calcium pyrophosphate deposi tion disease(Confirmed) Active Candidiasis(Confirmed) Active Celiac disease(Confirmed) Active Cellulitis of left foot(Confirmed) Active Chronic low back pain(Confirmed) Active Chronic obstructive lung disease(Confirmed) Active Claudication(Confirmed) Active Disorder of artery(Confirmed) Active Diverticulitis of colon(Confirmed) Active Enthesopathy of wrist AND/OR carpus(Confirmed) Active Essential hypertension(Confirmed) Active Ex-smoker(Confirmed) Active Fibromyalgia(Confirmed) Active Fibromyalgia(Confirmed) Active Gastritis(Confirmed) Active Gastroesophageal reflux disease(Confirmed) Active Hypertensive disorder(Confirmed) Active Hypokalemia(Confirmed) Active Memory loss(Confirmed) Active Osteopenia(Confirmed) Active 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
--- OUTSIDE RECORDS SUMMARY | 2023-12-07 10:42 | XMS_ITS | Continuity of Care Document ---
Author Name Unknown Organization [facility] Address Unknown Care Team Providers Care Room Service Manager Name Role Phone Romelia ULRICH, Fe Dubois Primary Care Physician [place] [facility] [place] [facility] Attending Physician: Nolan Vincent Admitting Physician: AdmNolan aleman Referring Physician: AdmtrNolan Allergies, Adverse Reactions, Alerts Substance Reaction Severity Status benazepril cough Active Levaquin Active celecoxib <not entered> Active Glutens Active Immunizations Given and Recorded Vaccine Date Status Refusal Reason pneumococcal 23-valent vaccine 08/07/15 Given influenza virus vaccine, inactivated 08/07/15 Give n Medications atorvastatin 40 mg oral tablet 1 tablet = 40 mg, By Mouth, Daily, 0 Refills, Maintenance, 04/22/20 16:11:00 EDT Start Date: 04/22/20 Status: Ordered calcium (as carbonate)-vitamin D 500 mg-400 intl units oral tablet ORAL, TABLET, 0 Refill(s),, 0 Refills, 05/17/19 13:06:00 EDT Start Date: 05/17/19 Status: Ordered CPAP Machine See Instructions, Maintenance, 04/13/16 16:39:38, Compound Start Date: 04/13/16 Status: Ordered Cymbalta 30 mg oral enteric coated capsule ORAL, CAPSULE, DELAYED RELEASE PELLETS, 0 Refill(s),, 0 Refills, 05/17/19 13:06:00 EDT Start Date: 05/17/19 Status: Ordered Kevzara 150 mg/1.14 mL subcutaneous solution Subcutaneous Infusion, 0 Refills, Maintenance, 04/18/19 15:06:13 EDT Start Date: 04/18/19 Status: Ordered lisinopril 20 mg oral tablet 20 mg, 1, tablet, By Mouth, Daily, # 30 tablet, Refills 0, Maintenance, 05/02/21 14:58:00 EDT, Partial fill upon patient request if the prescription is for a schedule II opioid drug. Start Date: 05/02/21 Status: Ordered Lyrica 25 mg oral capsule 2 capsule = 50 mg, By Mouth, 4 times a day, 0 Refills, Maintenance, 04/22/20 16:12:00 EDT Start Date: 04/22/20 Status: Ordered metoprolol 25 mg oral tablet, extended release 50 mg, 2, tablet, By Mouth, 2 times a day, ORAL, TABLET, EXTENDED RELEASE, 0 Refill(s),, Refills 0,05/17/19 13:06:00 EDT Start Date: 05/17/19 Status: Ordered NuLYTELY with Flavor Packs oral powder for reconstitution 240 mL, By Mouth, Every 10 minutes, # 4,000 mL, 0 Refills, Maintenance, 07/21/21 10:19:00 EDT, [facility]/pharmacy #[id number], Please fill with ANY available gallon colon prep, 240 mL By Mouth Every 10 minutes, 161.3, cm, 05/02/21 14:48:00 EDT, Height, 73, kg, 11... Start Date: 07/21/21 Status: Ordered omeprazole 20 mg oral enteric coated capsule 1 capsule, By Mouth, Daily, # 30 capsule, 1 Refills, Maintenance, 09/26/19 12:26:00 EST, 161.3, cm,06/30/19 13:59:23 EDT, Height, 75, kg, 06/30/19 11:40:11 EDT, Dry Weight Start Date: 09/26/19 Status: Ordered Oxygen 0 Refills, Maintenance, 04/13/16 16:39:56 Start Date: 04/13/16 Status: Ordered Plavix 75 mg oral tablet 75 mg, 1, tablet, By Mouth, Daily, Refills 0, Maintenance, 05/02/21 14:52:00 EDT, Partial fill uponpatient request if the prescription is for a schedule II opioid drug. Start Date: 05/02/21 Status: Ordered ProAir HFA 90 mcg/inh inhalation aerosol with adapter 2, puffs, Inhalation, 4 times a day, Refills 0, Maintenance, 04/13/16 16:37:10 Start Date: 04/13/16 Status: Ordered Readi-Cat 2 oral suspension 450 mL = 9 Gm, By Mouth, 2 times a day, Please dispense two 450 mL bottles for a total dose that equals 900 mLs. Drink first bottle [address] and then drink second bottle [address] scan,# 2 each, 0 Refills, Maintenance, 07/24/21 14:55:00... Start Date: 07/24/21 Status: Ordered Spiriva = 18 mcg, Inhalation, Daily, 0 Refills, Maintenance, 04/13/16 16:39:28 Start Date: 04/13/16 Status: Ordered sulfaSALAzine 500 mg oral tablet 2 tablet = 1,000 mg, By Mouth, 2 times a day, # 360 tablet, 0 Refills, Maintenance, 07/22/20 10:34:00 EDT, Tablet Start Date: 07/22/20 Status: Ordered telmisartan 20 mg oral tablet 1 tablet = 20 mg, By Mouth, Daily, 0 Refills, Maintenance, 05/02/21 14:55:00 EDT, Partial fill uponpatient request if the prescription is for a schedule II opioid drug. Start Date: 05/02/21 Status: Ordered Vitamin B1 Daily, 0 Refills, [...]
--- OUTSIDE RECORDS SUMMARY | 2023-12-07 10:42 | XMS_ITS | Continuity of Care Document ---
Author Name Unknown Organization [facility] Address [address] [place] [address]- Care Team Providers Care Geosciences Professor Name Role Phone Not on Staff, PCP Primary Care Physician Unavail able Encounter [facility] [place] Date(s): 07/23/20 - 08/22/20 [facility] [address] [place] [id number]- Allergies, Adverse Reactions, Alerts Substance Reaction Severity [...] tablet, 4 Refills, Maintenance, 11/13/19 8:13:00 EST, [id number], 161.3, cm, 06/30/19 13:59:00 EDT, Height, 75, kg, 06/30/19 11:40:00 EDT, Dry Weight Start Date: 11/13/19 Status: Ordered atorvastatin 40 mg oral tablet [...] 12/26/19 8:50:00 EDT, Route to Pharmacy Electronically, [facility]/pharmacy #[id number], 161.3, cm, 06/30/19 13:59:00 EDT, Height, 75, kg, 06/30/19 11:40:00 EDT, Dry Weight Start Date: 12/26/19 Status: Ordered Kevzara 150 mg/1.14 mL subcutaneous solution Subcutaneous Infusion, 0 Refills, Maintenance, 04/18/19 15:06:13 EDT Start Date: 04/18/19 Status: Ordered Lyrica 100 mg oral capsule ORAL, CAPSULE, 0 Refill(s),, 0 Refills, 05/17/19 13:06:00 EDT Start Date: 05/17/19 Status: Ordered Lyrica 25 mg oral capsule 2 capsule = 50 mg, By Mouth, 4 times a day, 0 Refills, Maintenance, 04/22/20 16:12:00 EDT Start Date: 04/22/20 Status: Ordered magnesium oxide 400 mg oral tablet See Instructions, TAKE 1 TABLET THREE TIMES DAILY BY MOUTH NEED FOLLOW UP FOR BLOOD TEST, # 90 tablet, 3 Refills, Soft Stop, 12/27/19 11:00:00 EDT, [facility]/pharmacy #[id number], 161.3, cm, 06/30/19 13:59:00 EDT, Height, [...] EDT, Tablet Start Date: 07/22/20 Status: Ordered Vitamin B1 Daily, 0 Refills, Maintenance, 06/30/19 11:38:49 EDT Start Date: 06/30/19 Status: Ordered Vitamin B6 25 mg oral tablet 1 tablet = 25 mg, By Mouth, Daily, 0 Refills, Maintenance, 06/30/19 11:39:10 EDT Start Date: 06/30/19 Status: Ordered Vivitrol 380 mg intramuscular injection, extended release INJECT IN THE MUSCLE Q 28 DAYS Start Date: 08/21/20 Status: Ordered Problem List Condition Effective Dates [...]
--- OUTSIDE RECORDS SUMMARY | 2023-12-07 10:42 | XMS_ITS | Continuity of Care Document ---
Author Name Unknown Organization [facility] Address [address] [place] [address]- Care Team Providers Care Stockkeeper Name Role Phone Not on Staff, PCP Primary Care Physician Unavail able [place] [facility] [place]s): 06/28/20 - 07/28/20 [facility] [address] [place] [id number]- [facility] Allergies, Adverse Reactions, Alerts Substance Reaction Severity Status benazepril cough Active celecoxib <not entered> Active Glutens Active amLODIPine-atorvastatin 1 Ac tive Levaquin Active 1cough Immunizations Given and Recorded Vaccine Date [...] tablet, 4 Refills, Maintenance, 11/13/19 8:13:00 EST, [id number], 161.3, cm, 06/30/19 13:59:00 EDT, Height, 75, [...] 12/26/19 8:50:00 EDT, Route to Pharmacy Electronically, [facility]/pharmacy #[id number], 161.3, cm, 06/30/19 13:59:00 EDT, [...] 3 Refills, Soft Stop, 12/27/19 11:00:00 EDT, [facility]/pharmacy #[id number], 161.3, cm, 06/30/19 13:59:00 EDT, [...]
--- OUTSIDE RECORDS SUMMARY | 2023-12-07 10:42 | XMS_ITS | Continuity of Care Document ---
Author Name Unknown Organization [facility] Address [address] [place] [address]- Care Team Providers Care Linen Manager Name Role Phone Romelia ULRICH, Fe Dubois Primary Care Physician Encounter [facility] [place] Date(s): 09/24/21 - 10/24/21 [facility] [address] [place] [address] [id number] Attending Physician: Nolan Vincent Admitting Physician: Nolan Vincent Referring Physician: AdmNolan aleman Allergies, Adverse Reactions, Alerts Substance Reaction Severity [...] mL, 0 Refills, Maintenance, 07/21/21 10:19:00 EDT, [facility]/pharmacy #[id number], Please fill with ANY available gallon colon [...]
--- OUTSIDE RECORDS SUMMARY | 2023-12-07 10:42 | XMS_ITS | Continuity of Care Document ---
Author Name Unknown Organization [facility] Address [address] [place] [address]- Care Team Providers Care Linux System Admin Name Role Phone Not on Staff, PCP Primary Care Physician Unavail able [place] [facility] [place] 07/22/20 - 08/21/20 [facility] [address] [place] [id number]- [facility] Attending Physician: Nolan Vincent Admitting Physician: Nolan Vincent Referring Physician: AdmtrNolan Allergies, Adverse Reactions, Alerts [...] tablet, 4 Refills, Maintenance, 11/13/19 8:13:00 EST, [place] [id number], 161.3, cm, 06/30/19 13:59:00 EDT, Height, 75, [...]
--- OUTSIDE RECORDS SUMMARY | 2023-12-07 10:43 | XMS_ITS | Continuity of Care Document ---
Author Name Unknown Organization [facility] Address Unknown Care Team Providers Care Asphalt Paving Superintendent Name Role Phone Romelia ULRICH, Fe Dubois Primary Care Physician [place] [facility] [place]): 08/27/21 - 09/03/21 [facility] Attending Physician: Keyhsa FORD, Silvia Ivan Referring Physician: Raj Jung MD Allergies, Adverse Reactions, Alerts Substance Reaction Severity [...] mL, 0 Refills, Maintenance, 07/21/21 10:19:00 EDT, [facility]/pharmacy #[id number], Please fill with ANY available gallon colon [...] post trauma(Confirmed) Active Vitamin D deficiency(Confirmed) Active Vital Signs Most recent to oldest [Reference Range]: 1 Height 162.5 cm (08/27/21 9:01 AM) Weight 72.9 kg (08/27/21 9:01 AM) Pulse Rate [55-90 bpm] 82 bpm (08/27/21 9:01 AM) Body Mass Index [18.5-24.99] 27.61 *H* (08/27/21 9:01 AM) Blood Pressure [90-138/55-84 mm Hg] 169/ 93mm Hg *H* (08/27/21 9:01 AM) Temperature [96.8-100.4 DegF] 98.8 DegF (08/27/21 9:01 AM) Social History Social History Type Response Smoking Status Former smoker; Type: Cigarettes entered on: 04/13/16 Sex
--- OUTSIDE RECORDS SUMMARY | 2023-12-07 10:43 | XMS_ITS | Continuity of Care Document ---
Author Name Unknown Organization [facility] Address [address] [facility], [address] Floor, [address] [place] [address]- Care Team Providers Care Recovery Rn Name Role Phone Romelia ULRICH, Fe Dubois Primary Care Physician [place] [facility] [place](s): 04/02/23 - 05/02/23 [facility] [address], [address], [address] [place] [id number] Attending Physician: Nolan Vincent Admitting Physician: AdmNolan aleman Referring Physician: AdmtrNolan Allergies, Adverse Reactions, Alerts Substance Reaction Severity Status Levaquin Active benazepril cough Active celecoxib <not entered> Active Glutens Active Immunizations Given and Recorded Vaccine Date Status Refusal Reason pneumococcal 23-valent vaccine 08/07/15 Given influenza virus vaccine, inactivated 08/07/15 Give n Medications aspirin 81 mg oral delayed release tablet 1 tablet = 81 mg, By Mouth, Daily, 0 Refills, Maintenance, 12/24/22 9:41:00 EST, Partial fill upon patient request if the prescription is for a schedule II opioid drug. Start Date: 12/24/22 Status: Ordered atorvastatin 40 mg oral tablet [...] Daily, ORAL, TABLET, EXTENDED RELEASE, 0 Refill(s),, Refills 0, 05/17/19 13:06:00 EDT Start Date: 05/17/19 Status: Ordered Oxygen 0 Refills, Maintenance, 04/13/16 16:39:56 Start Date: 04/13/16 Status: Ordered Plavix 75 mg oral tablet 75 mg, 1, tablet, By Mouth, Daily, Refills 0, Maintenance, 05/02/21 14:52:00 EDT, Partial fill uponpatient request if the prescription is for a schedule II opioid drug. Start Date: 05/02/21 Status: Ordered pregabalin 75 mg oral capsule [...] EDT, Tablet Start Date: 07/22/20 Status: Ordered valsartan 80 mg oral tablet 80 mg, 1, tablet, By Mouth, Daily, # 30 tablet, Refills 0, Maintenance, 12/24/22 9:41:00 EST, Partial fill upon patient request if the prescription is for a schedule II opioid drug. Start Date: 12/24/22 Status: Ordered Vitamin C By Mouth, Daily, 0 Refills, Maintenance, 12/24/22 9:39:00 EST, Partial fill upon patient request ifthe prescription is for a schedule II opioid drug. Start Date: 12/24/22 Status: Ordered Vitamin E By Mouth, 0 Refills, Maintenance, 12/24/22 9:42:00 EST, Partial fill upon patient request if the [...] Confirmed Active Vitamin D deficiency Confirmed Active Social History Social History Type Response Smoking Status Former smoker; Type: Cigarettes entered on: 04/13/16 Sex Patient Care team information Care Team Personnel Name: Fe León MD Position: [facility] Physician - Primary Care Member Role: PCP Address: Address: [address] [place] [id number]- Name: Johanna Carmen RN Position: [facility] RN Member Role: Primary Care Nurse Name: Lorin Vu Position: [facility] Nurse Member Role: Lifetime Consulting Physician Care Team Related Persons Name: POLLY DAVILA Name: POLLY OTOOLE Address: home [address] [place] [address] Name: TIFFANY VYAS Address: home [address] [place] [phone]
--- OUTSIDE RECORDS SUMMARY | 2023-12-07 10:43 | XMS_ITS | Continuity of Care Document ---
Author Name Unknown Organization [facility] Address [address], [address], [address] [place] [address]- Care Team Providers Care Telephone Maintainer Name Role Phone Romelia ULRICH, Fe Dubois Primary Care Physician Encounter [facility] [place] Date(s): 12/08/22 - 01/07/23 [facility] [address], [address], [address] [place] [address]- Allergies, Adverse Reactions, Alerts Substance Reaction Severity [...] drug. 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 Renal artery stenosis Confirmed Active Rib pain post trauma Confirmed Active Vitamin D deficiency Confirmed Active Social History Social History Type Response Smoking Status Former smoker; Type: Cigarettes entered on: 04/13/16 Sex Patient Care team information Care Team Personnel Name: Romelia ULRICH, Fe Dubois Position: [facility] Physician (General Medicine) Member Role: PCP Address: Address: [address] [place] [address]- Name: Johanna Carmen RN Position: [facility] RN Member Role: Primary Care Nurse Name: Lorin Vu Position: [facility] PCO RN Member Role: Lifetime Consulting Physician Care Team Related Persons Name: POLLY DAVILA Name: POLLY OTOOLE Address: home [address] [place] [address] Name: TIFFANY VYAS Address: home [address] [place] [id number]
--- OUTSIDE RECORDS SUMMARY | 2023-12-07 10:43 | XMS_ITS | Continuity of Care Document ---
Author Name Unknown Organization [facility] Address [address] [place] [address]- Care Team Providers Care Wooling Machine Operator Name Role Phone Roger ULRICH, Garcia Alvarado Primary Care Physician Encounter [facility] [place] Date(s): 07/17/21 - 08/16/21 [facility] [address] [place] [address]- [place] Allergies, Adverse Reactions, Alerts Substance Reaction Severity [...] mL, 0 Refills, Maintenance, 07/21/21 10:19:00 EDT, [facility]/pharmacy #[id number], Please fill with ANY available gallon [...]
--- OUTSIDE RECORDS SUMMARY | 2023-12-07 10:43 | XMS_ITS | Continuity of Care Document ---
Author Name Unknown Organization [facility] ter Address [address] [place] [id number]- Care Team Providers Care Nursing Scheduler Name Role Phone Romelia ULRICH, Fe Dubois Primary Care Physician ( [phone] Encounter [facility] Date(s): 07/22/23 - 07/23/[address] [address]- Discharge Disposition: A-D/C Home Attending Physician: Thony Friend MDama Admitting Physician: Pete Castellanos MD Referring Physician: Not on Staff, Referring MD Allergies, Adverse Reactions, Alerts Substance Reaction Severity Status celecoxib gi upset Active benazepril cough Active Levaquin itchy Active Immunizations Given and Recorded Vaccine Date Status Refusal Reason pneumococcal 23-valent vaccine 08/07/15 Given influenza virus vaccine, inactivated 08/07/15 Give n Medications acetaminophen 325 mg oral tablet 650 mg, 2, tablet, By Mouth, Every 6 hours, Maintenance, 07/07/23 11:28:00 EDT, Partial fill upon patient request if the prescription is for a schedule II opioid drug. Start Date: 07/07/23 Status: Ordered apixaban 5 mg oral tablet 1 tablet = 5 mg, By Mouth, 2 times a day, # 60 tablet, 0 Refills, Maintenance, 07/23/23 13:36:00 EDT, Tablet, [facility], Partial fill upon patient request if the prescription is for a schedule II opioid drug., 162, cm, 07/23/23 10:44:00... Start Date: 07/23/23 Status: Ordered atorvastatin 40 mg oral tablet 1 tablet = 40 mg, By Mouth, Daily in AM, # 30 tablet, 0 Refills, Maintenance, 06/29/23 11:01:00 EDT, Tablet, [facility]/pharmacy #[id number], Partial fill upon patient request if the prescription is for a schedule II opioid drug., 161, cm, 06/29/23 7:47:00 EDT, He... Start Date: 06/29/23 Status: Ordered calcium (as carbonate)-vitamin D 500 mg-400 intl units oral tablet By Mouth, Daily, ORAL, TABLET, 0 Refill(s),, 0 Refills, 05/17/19 13:06:00 EDT Start Date: 05/17/19 Status: Ordered Cardizem CD 120 mg/24 hours oral capsule, extended release 120 mg, CD Capsule, By Mouth, 07/23/23 13:43:00 EDT Start Date: 07/23/23 Stop Date: 07/23/23 Status: Completed Cardizem CD 120 mg/24 hours oral capsule, extended release 120 mg, By Mouth, Daily, # 30 capsule, Refills 0, Tot. Refills 0, Maintenance, 07/23/23 13:35:00 EDT, Route to Pharmacy Electronically, [facility], Partial fill upon patient request if the prescription is for a schedule II opioid drug.,... Start Date: 07/23/23 Status: Ordered Cymbalta 30 mg oral enteric coated capsule 1 capsule = 30 mg, By Mouth, Daily in AM, ORAL, CAPSULE, DELAYED RELEASE PELLETS, 0 Refill(s),, 0 Refills, 05/17/19 13:06:00 EDT Start Date: 05/17/19 Status: Ordered DAILY DAISY TABLET DAILY DAISY TABLET, 1, tablet, By Mouth, Daily, Maintenance, 07/07/23 11:27:00 EDT Start Date: 07/07/23 Status: Ordered docusate-senna 50 mg-8.6 mg oral capsule 2 capsule, By Mouth, Daily in PM, # 60 capsule, 0 Refills, Maintenance, 07/09/23 12:14:00 EDT, Capsule, [facility]/pharmacy #[id number], Partial fill upon patient request if the prescription is for a schedule II opioid drug., 2 capsule By Mouth Daily in PM, 160, c... Start Date: 07/09/23 Status: Ordered furosemide 20 mg oral tablet 20 mg, 1, tablet, By Mouth, Every Wednesday, Wednesday and Wednesday, # 13 tablet, Refills 2, Tot. Refills 2, Maintenance, 06/29/23 16:23:00 EDT, Route to Pharmacy Electronically, [facility]/pharmacy #[id number], Partial fill upon patient request if the prescription is... Start Date: 06/29/23 Stop Date: 09/27/23 Status: [...] 06/29/23 11:01:00 EDT, Route to Pharmacy Electronically, [facility]/pharmacy #[id number], Partial fill upon patient request if the... Start Date: 06/29/23 Status: Ordered MiraLax oral powder for reconstitution = 17 Gm, By Mouth, Daily, PRN Constipation, dissolve in water or juice, # 527 Gm, 0 Refills, Maintenance, 07/09/23 12:12:00 EDT, REC Powder, [facility]/pharmacy #[id number], Partial fill upon patient request if the prescription is for a schedule II opioid drug., 1... Start Date: 07/09/23 Status: Ordered oxyCODONE 5 mg oral tablet 5 mg, 1, tablet, By Mouth, 2 times a day, PRN, Refills 0, Tot. Refills 0, Maintenance, Pain , Moderate, 07/07/23 11:29:00 EDT, Partial fill upon patient request if the prescription is for a schedule II opioid drug. Start Date: 07/07/23 Status: Ordered Oxygen 0 Refills, Maintenance, 04/13/16 16:39:56 Start Date: 04/13/16 Status: Ordered Plavix 75 mg oral tablet 75 mg, 1, tablet, By Mouth, Daily, # 30 tablet, Refills 0, Tot. Refills 0, Maintenance, 06/29/23 11:01:00 EDT, Route to Pharmacy Electronically, [facility]/pharmacy #[id number], Partial fill upon patient request if [...] 11:01:00 EDT, Inhaler, Route to Pharmacy Electronically, [id number], [facility]/pharmacy #[id number], 161, cm, 06/29/23 7:47:00 ED... Start [...] each, 1 Refills, Maintenance, 06/29/2311:00:00 EDT, Powder, [facility]/pharmacy #[id number], Partial fill upon patient request if the prescription is for a schedule II opioid drug., 1 puffs Inhalation D... Start Date: 06/29/23 Stop Date: 08/28/23 Status: Ordered valsartan 80 mg oral tablet TAKE 1 TABLET BY MOUTH EVERY DAY Start Date: 07/22/23 Status: Ordered Vitamin E By Mouth, Daily, [...] Exam Date Time Procedure Performing Provider Status 07/22/23 6:38 PM Chest Portable Tiburcio Mckoy; Auth (Verified) Notes: (Chest Portable) Reason For Exam: Chest Pain;Other: RESULT: Chest Portable Chest Portable INDICATION: Hx of Present Illness: Pt presented to ED for tachycardia 150s; Reason: Other:; Chest Pain; Clinical Question(s): CHF COMPARISON: 07/06/2023 FINDINGS: LINES AND TUBES: None. LUNGS AND PLEURA: Hazy opacities in the mid lower right lung and left base are redemonstrated. There is no vascular congestion. No effusion or pneumothorax. HEART, MEDIASTINUM AND DEJA: The cardiac silhouette is mildly enlarged. The mediastinal contours are unchanged. BONES AND SOFT TISSUES: No acute abnormality. IMPRESSION: Bibasilar airspace disease which may related to a combination of fibrotic changes and atelectasis. No new consolidation. Mild cardiomegaly. WSN: [id number] Ordering Physician: Clay Armstrong Dictated By: Lyla Vu MD Dictated Date/Time: 07/22/23 6:54 pm Reviewed By: Lyla Vu MD Signed By: Lyla Vu MD Signed Date/Time: 07/22/23 6:54 pm Transcribed By: IVELISSE Transcribed Date/Time: 07/22/23 6:49 pm Vital Signs Most recent to oldest [Reference Range]: 1 2 3 Height 162 cm (07/23/23 3:35 PM) 162 cm (07/23/23 10:44 AM) 162 cm (07/23/23 7:21 AM) Weight 75 kg (07/22/23 10:42 PM) 75 kg (07/22/23 8:10 PM) 75 kg (07/22/23 6:16 PM) Oxygen Saturation [94-100 %] 96 % (07/23/23 3:35 PM) 96 % (07/23/23 10:44 AM) 99 % (07/23/23 7:21 AM) Pulse Rate [55-90 bpm] 79 bpm (07/23/23 3:35 PM) 78 bpm (07/23/23 1:50 PM) 78 bpm (07/23/23 10:44 AM) Body Mass Index [18.5-24.99 kg/m2] 28.58 kg/m2 *H* (07/22/23 10:42 PM) 28.58 kg/m2 *H* (07/22/23 8:10 PM) 28.58 kg/m2 *H* (07/22/23 6:16 PM) Blood Pressure [90-138/55-84 mm Hg] 169/78mm Hg *H* (07/23/23 3:35 PM) 155/68mm Hg *H* (07/23/23 1:50 PM) 155/68mm Hg *H* (07/23/23 10:44 AM) Respiratory Rate [16-30 br/min] 18 br/min (07/23/23 3:35 PM) 17 br/min (07/23/23 10:44 AM) 5 br/min *L* (07/23/23 8:00 AM) Temperature [96.8-100.4 DegF] 98.2 DegF (07/23/23 3:35 PM) 98.1 DegF (07/23/23 10:44 AM) 98.8 DegF (07/23/23 7:21 AM) Liters per Minute 2 L/min (07/23/23 3:35 PM) 3 L/min (07/23/23 12:09 AM) 3 L/min (07/22/23 10:42 PM) Mode of Delivery (Oxygen) Nasal cannula (07/23/23 3:35 PM) Room air (07/23/23 10:44 AM) Room air (07/23/23 7:21 AM) Blood pressure sites Arm, left (07/23/23 3:35 PM) Arm, right (07/23/23 10:44 AM) Arm, left (07/23/23 7:21 AM) Temperature Route Oral (07/23/23 3:35 PM) Oral (07/23/23 10:44 AM) Oral (07/23/23 7:21 AM) Dry Weight 75 kg (07/22/23 10:42 PM) 75 kg (07/22/23 8:10 PM) 75 kg (07/22/23 6:16 PM) Social History Social History Type Response Smoking Status Never (less than 100 in lifetime) entered on: 06/18/23 Sex Female Admission evaluation note * Felipe Victor: PERFORM, MODIFY Event Display: Admission Note Authored Date: [id number] Patient: ??ELKE DAVID ? Age:??68 Years?Sex:??Female?:??1955?? Chief Complaint/Reason for Consultation Tachycardia History of Present Illness 68-year-old female with history??of diastolic heart failure,??PAD,??CVA,??hypertension, alcohol use, rheumatoid arthritis,??asthma/COPD??presents??with tachycardia.?? Of note,??patient was discharged07/09/23.?? She had right??rotator cuff??surgery??06/15/23 , complicated by??postop??acute on chronicrespiratory failure. ??Today, visiting nurses??found her heart rate??to be up to 200.?? She was asymptomatic.?? EMS??administered adenosine without any??relief.?? In the emergency department she was noted to be in atrial fibrillation with RVR??rate 150??and improved to 100??after diltiazem.?? She was then admitted for further management of new atrial fibrillation. Review of Systems CONSTITUTIONAL: ??Denies any fever, chills, changes to weight or fatigue. EYES: Denies any changes to vision, burning or diplopia. HEENT: Denies any BERUMEN, nasal d/c, nose bleeds, changes to voice, vertigo, photophobia, hearing changes or dental problems. CV: Denies any CP, orthopnea, PND, edema, palpitations. PULM: Denies any SOB, wheezing, cough or production of phlegm. ABD: Denies any abdominal pain, N/V/D, heartburn, PRBPR, melena, or changes to bowel habits. : Denies any changes to frequency. ??Denies dysuria, urgency, straining, hematuria, incontinence.? MS: Denies any joint or muscle pain, falls or changes to gait. NEURO: Denies any weakness, numbness, changes to speech confusion or memory loss. SKIN: Denies any rashes or lesions. ?? PSYCH: Denies any depression or anxiety. SIGECAPS negative. FUNCTIONAL: At baseline the patient is able to??ambulate independently Objective Vital Signs?? Temperature: 98 DegF (07/22/23 18:16:00) Temperature Route: Oral (07/22/23 18:16:00) Pulse Rate: 88 bpm (07/22/23 20:10:00) Respiratory Rate: 19 br/min (07/22/23 20:10:00) Systolic Blood Pressure:??149 mm Hg??High (07/22/23 20:10:00) Diastolic Blood Pressure: 83 mm Hg (07/22/23 20:10:00) Blood pressure sites: Arm, left (07/22/23 20:10:00) Mean Arterial Pressure: 105 mm Hg (07/22/23 20:10:00) Pulse Pressure: 66 mm Hg (07/22/23 20:10:00) Oxygen Saturation: 99 % (07/22/23 20:10:00) Liters per Minute: 3 L/min (07/22/23 20:10:00) Mode of Delivery (Oxygen): Nasal cannula (07/22/23 20:10:00) Early Warning Score: 0 (07/22/23 22:35:36) ? Physical Exam General:??68 year old female??lies in bed comfortably in no acute distress HEENT: NCAT, moist oral mucosa, good dentition, oropharynx without erythema Card: RRR no murmur, non displaced PMI, no JVD, 2+ radial pulse B/L Resp: CTA B/L, no wheezing, rales, ronchi Abdomen: soft and non tender, bowel sounds WNL Extremities: Right arm in splint Skin: Without rashes or lesions, good turgor Hem/Lymph: without bruising or lymphadenopathy Psych: appropriate affect Neuro: A&OX3, no focal motor deficits Assessment/Plan 68-year-old female with history??of diastolic heart failure,??PAD,??CVA,??hypertension, alcohol use, rheumatoid arthritis,??asthma/COPD??presents??with tachycardia.? Atrial fibrillation (I48.91):?? Rate improved in ED with diltiazem.?She is now in normal sinus rhythm Patient has [id number] 7??and has bled 4,??so she has high risk for stroke and bleeding??making anticoagulation difficult.?She is also already on aspirin and Plavix. Followed by [facility] cardiology-we will consult them for??for recommendations ?? Plan Continue to monitor on telemetry We will continue her home metoprolol,??titrate up as needed??as BP permits We will consult for new A-fib??and anticoagulation/alternatives??consideration ?? Diastolic heart failure (I50.30):??Continue Lasix as needed ?? SHO on CPAP (G47.33):?? Asthma with COPD (J44.9):?? Saturating well??2 to 3 L??home O2 Breo and ProAir while inpatient Continue Trelegy upon discharge ?? Peripheral arterial disease (I73.9):?? Follows with vascular.??Has right lower extremity stent Continue aspirin and Plavix ?? Rheumatoid arthritis (M06.9):?? Continue sulfasalazine Upon discharge continue Kevzara injection every 2 weeks ?? VTE Prophylaxis:??Pneumoboots ?VTE Prophylaxis Assessment:??VTE Prophylaxis Ordered ?? Code Status:??Full code ?Order Code Status:??Code Status Ordered ?? Ongoing Medical Necessity:??New atrial fibrillation,??pending??cardiology consult ?? Discharge Planning:??Likely home in 1 to 2 days ?? Total time spent on chart review,??medication reconciliation, direct patient care, documentation: 76 minutes ?? Histories Allergies Allergies ?(Active and Proposed Allergies Only) celecoxib? (Severity: Unknown severity, Onset: 06/12/2023) ?Reactions: gi upset Levaquin? (Severity: Unknown severity, Onset: Unknown) ?Reactions: itchy benazepril? (Severity: Unknown severity, Onset: Unknown) ?Reactions: cough ? Past Medical History/Problem List Active Problems??(30) Alcoholism Allergic rhinitis Anxiety Asthma Backache Calcium pyrophosphate deposition disease Candidiasis Celiac disease Cellulitis of left foot Chronic low back pain Chronic obstructive lung disease Claudication Disorder of artery Diverticulitis of colon Enthesopathy of wrist AND/OR carpus Essential hypertension Ex-smoker Fibromyalgia Fibromyalgia Gastritis Gastroesophageal reflux disease Hypertensive disorder Hypokalemia Memory loss Osteopenia Pain disorder associated with psychological and physical factors Plantar fascial fibromatosis Renal artery stenosis Rib pain post trauma Vitamin D deficiency ? Past Surgical History No surgery history documented. ? Social History Alcohol Occasionally has 2 glasses wine ?? Family History Father: CAD - Coronary artery disease ? Medications Home Medications Acetaminophen (acetaminophen 325 mg oral tablet)?650?Milligram?2?tablet?By Mouth?Every 6 hours Albuterol (ProAir HFA 90 mcg/inh inhalation aerosol with adapter)?2?puff(s)?Inhalation?4 times a day?as needed?for 30?Days?Wheezing/Shortness of Breath Aspirin (aspirin 81 mg oral delayed release tablet)?1?tab(s)?81?Milligram?By Mouth?Daily Atorvastatin (atorvastatin 40 mg oral tablet)?1?tab(s)?40?Milligram?By Mouth?Daily in AM Calcium And Vitamin D Combination (calcium (as carbonate)-vitamin D 500 mg-400 intl units oral tablet)?By Mouth?Daily?ORAL, TABLET, 0 Refill(s), Clopidogrel (Plavix 75 mg oral tablet)?75?Milligram?1?tablet?By Mouth?Daily Docusate-Senna (docusate-senna 50 mg-8.6 mg oral capsule)?2?capsule?By Mouth?Daily in PM Duloxetine (Cymbalta 30 mg oral enteric coated capsule)?1?capsule?30?Milligram?By Mouth?Daily in AM?ORAL, CAPSULE, DELAYED RELEASE PELLETS, 0 Refill(s), fluticasone/umeclidinium/vilanterol (Trelegy Ellipta 200 mcg-62.5 mcg-25 mcg/inh inhalation powder)?1?puff(s)?Inhalation?Daily?for 30?Days?at the same time every day Furosemide (furosemide 20 mg oral tablet)?20?Milligram?1?tablet?By Mouth?Every Wednesday, Wednesday and Wednesday?for 30?Days Metoprolol (metoprolol 25 mg oral tablet, extended release)?50?Milligram?2?tablet?ByMouth?Daily?ORAL, TABLET, EXTENDED RELEASE, 0 Refill(s), Miscellaneous Rx (DAILY DAISY TABLET)?1?tab(s)?By Mouth?Daily Oxycodone (oxyCODONE 5 mg oral tablet)?5?Milligram?1?tablet?By Mouth?2 times a day?as needed?Pain , Moderate Polyethylene Glycol 3350 (MiraLax oral powder for reconstitution)?17?gram?By Mouth?Daily?as needed?Constipation?dissolve in water or juice Pregabalin (pregabalin 75 mg oral capsule)?1?capsule?75?Milligram?TAKE 1 CAPSULE BY MOUTH EVERY 8 HOURS sarilumab (Kevzara 150 mg/1.14 mL subcutaneous solution)?Subcutaneous Infusion?Every 14 days SulfaSALAZINE (sulfaSALAzine 500 mg oral tablet)?2?tab(s)?1,000?Milligram?By Mouth?2 times a day Valsartan (valsartan 80 mg oral tablet)?TAKE 1 TABLET BY MOUTH EVERY DAY Vitamin E?By Mouth?Daily ? Results Recent Labs BLOOD COUNT & DIFF WBC 5.4 k/mm3 ()?? 07/22/2023 18:32 RBC 3.13 m/mm3 (Low)?? 07/22/2023 18:32 Hgb 10.3 Gm/dL (Low)?? 07/22/2023 18:32 Hct 32.9 % (Low)?? 07/22/2023 18:32 MCV 105.1 femtoliters (High)?? 07/22/2023 18:32 MCH 32.9 pg ()?? 07/22/2023 18:32 MCHC 31.3 g/dL (Low)?? 07/22/2023 18:32 Platelet Count 270 k/mm3 ()?? 07/22/2023 18:32 RDW-SD 52.9 femtoliters (High)?? 07/22/2023 18:32 MPV 9.9 femtoliters ()?? 07/22/2023 18:32 Nucleated RBC (Automated) 0.0 #/100 WBC'S ()?? 07/22/2023 18:32 Abs. NRBC 0.0 k/mm3 ()?? 07/22/2023 18:32 Abs. Neut 2.3 k/mm3 ()?? 07/22/2023 18:32 Abs. Lymph 2.3 k/mm3 ()?? 07/22/2023 18:32 Abs. Dare 0.6 k/mm3 ()?? 07/22/2023 18:32 Abs. Eo 0.2 k/mm3 ()?? 07/22/2023 18:32 Abs. Baso 0.0 k/mm3 ()?? 07/22/2023 18:32 Neut % 42.6 % (Low)?? 07/22/2023 18:32 Lymph % 42.0 % ()?? 07/22/2023 18:32 Dare % 11.2 % (High)?? 07/22/2023 18:32 Eos % 3.4 % ()?? 07/22/2023 18:32 Baso % 0.6 % ()?? 07/22/2023 18:32 Imm Gran 0.2 % ()?? 07/22/2023 18:32 Abs. Imm Gran 0.0 k/mm3 ()?? 07/22/2023 18:32 ?? CARDIAC High Sensitivity Troponin (HSTnT) 22 ng/L (High)?? 07/22/2023 22:05 ?? CHEM GENERAL Sodium 144 mmol/L ()?? 07/22/2023 18:32 Potassium 3.6 mmol/L ()?? 07/22/2023 18:32 Chloride 101 mmol/L ()?? 07/22/2023 18:32 Bicarbonate Level 23 mmol/L ()?? 07/22/2023 18:32 Anion Gap 20 (High)?? 07/22/2023 18:32 Glucose Level 99 mg/dL ()?? 07/22/2023 18:32 Glucose, POC 129 mg/dL (High)?? 07/22/2023 17:29 BUN 13 mg/dL ()?? 07/22/2023 18:32 Creatinine-Blood 0.6 mg/dL ()?? 07/22/2023 18:32 Estimated GFR Creatinine 99 ML/MIN/1.73 M2 ()?? 07/22/2023 18:32 Calcium 9.4 mg/dL ()?? 07/22/2023 18:32 Calcium, Ionized pH Corrected 1.17 mmol/L ()?? 07/22/2023 18:32 Magnesium 1.6 mg/dL ()?? 07/22/2023 18:32 ?? ENDOCRINE/TUMOR MARKER TSH 1.37 uIU/mL ()?? 07/22/2023 18:32 ?? URINE OTHER Est Creatinine Clearance 78.91 mL/min ()?? 07/22/2023 19:52 ? EKG study * Event Display: ECG 12-Lead Authored Date: Please click on pdf link to open report * Event Display: ECG 12-Lead Authored Date: Ventricular Rate: 92 BPM Atrial Rate: 92 BPM P-R Interval: 158 ms QRS Duration: 78 ms Q-T Interval: 392 ms QTC Calculation(Bazett): 484 ms P Coy: 56 degrees R Coy: 27 degrees T Coy: 34 degrees Sinus rhythm with Premature atrial complexes Poor R wave progression Abnormal ECG When compared with ECG of 22-JUL-2023 17:23, Normal sinus rhythm is now Present Confirmed by COLLEEN OSBORNE MD ([id number]) on 07/23/2023 11:31:32 AM [place]: COLLEEN OSBORNE MD * Event Display: ECG 12-Lead Authored Date: Please click on pdf link to open report * Event Display: ECG 12-Lead Authored Date: Ventricular Rate: 154 BPM QRS Duration: 76 ms Q-T Interval: 288 ms QTC Calculation(Bazett): 461 ms R Coy: 24 degrees T Coy: 267 degrees Atrial fibrillation with rapid ventricular response Nonspecific ST and T wave abnormality Abnormal ECG When compared with ECG of 06-JUL-2023 17:12, Atrial fibrillation has replaced Sinus rhythm Vent. rate has increased BY 77 BPM Non-specific change in ST segment in Inferior leads Confirmed by COLLEEN OSBORNE MD ([id number]) on 07/23/2023 11:30:01 AM [place]: COLLEEN OSBORNE MD Cardiology * Event Display: Cardiac Rhythm Strips Authored Date: Hospital Progress note * Daisha Turner RN: PERFORM, SIGN, VERIFY Event Display: Progress Note Hospital Authored Date: Patient: ELKE DAVID Age: 68 years Sex: Female : 1955 Associated Diagnoses: None Author: Daisha Turner RN Findings Pt alert/oriented. IV removed. Dc instructions reviewed w/pt who verbalized understanding and denies questions. Hard copy given to pt. Pt awaiting transport to [facility] at 1645 - will [facility] scripts on way out of hospital. Discharge Information Case Management Discharge Plan : Case Management Discharge Plan Data 07/23/2023 13:36 EDT Discharge Level of Care at Discharge Homehealth/VNA Discharge VNA/Hospice/Home Care Allie Discharge Transportation Arranged [facility] [address] [facility] [phone] Mode of Transportation Arranged Chair Van Name of Agency #1 [facility] # Service Categories #1 Home health aide, Occupational Therapy, Physical Therapy, Penitentiary Service Comments #1 [facility]. You will go by chairvan at specified time. Colin has brought you an O2 tank to travel home with. Pulmonary Rehab Discharge : Pulmonary Rehab Discharge Status 07/23/2023 3:09 EDT CPAP/BiPAP Mask Type Nasal CPAP/BiPAP Mask Size Small 07/23/2023 0:46 EDT CPAP/BiPAP Mask Type Nasal CPAP/BiPAP Mask Size Small * Gustaov ANDREWS, Baldev Bateman: PERFORM Event Display: Progress Note Hospital Authored Date: Patient: ??ELKE DAVID ? Age:??68 Years?Sex:??Female?:??1955?? Paged by RN @[id number] to report SVT [id number] on telemetry associated with brief period of nausea & chest pressure. Went to bedside immediately; pt laying in bed in no acute distress. BP on the high side 175/73, HR 93, RR 18, 97% 02 on 3L NC. ECG confirms pt back in normal sinus rhythm with PAC's, HR 90's. No new ischemic ST changes in comparison to previous. Reviewed telemetry; appears pt went into rapid Afib RvR for ~1minute then self converted to NSR. Pt states she was wearing her CPAP when this occurred & that the chest pressure/nausea is what woke her up. Denies experiencing palpitations, vision changes or dizziness during the event. Denies chest pressure/worsening dyspnea at the time of my evaluation. She also said the chest pressure/nausea is new & was asymptomatic on her initial presentation. ?? Plan: -Gave pts 0900 metoprolol early for further rate/BP control. -Will consider additional IV Cardizem if rates sustain >130. -Given new report of CP/nausea will repeat STAT troponin. -SL nitro ordered PRN chest pain. -Previous electrolytes WNL; follow repeat lytes/correct accordingly. * Alie De Dios RN: PERFORM, SIGN, VERIFY, SIGN, MODIFY Event Display: Progress Note Hospital Authored Date: Patient: ELKE DAVID Age: 68 years Sex: Female : 1955 Associated Diagnoses: None Author: Alie De Dios RN Pt arrived to unit via stretcher at approximately 2230 and ambulated to the bed with good gait withstand by assist. pt oriented to room and unit. Pt A&O x3. VSS. Pt educated on using the call balderas if experiencing CP. SOB, or dizziness and not to get oob without assistance. IV assessed and patent. Pt on tele SR at this time. Pt reports of 5/10 right shoulder pain related to post operative pain . Pt reports baseline neuropathy of the lower extremities bilaterally.. Pt has positive peripheral pulses, no chest pain, and no edema. Pt is safely independent with ambulation. Skin is intact with no rash or breakdown. Lung sounds are clear but dim in the bases, pt on 3l nasal cannula and denies SOB or recent cough. Pt BS x4, and denies nausea or vomiting. Pt abdomen is flat, soft, and non-tender to touch. Last BM 07/21. Pt ambulating to the BR and reports no complaints burning when urinating and no difficulty starting or maintaining a stream. Will continue with plan of care * Alie De Dios RN: PERFORM Event Display: Progress Note Hospital Authored Date: [id number] At 0120 pt awoke out of sleep to chest pressure, SOB, and nausea. On tele pt went into A.fib RVR inthe 180s for roughly one minute. BP of 175/73, O2 97% on 3L nasal cannula. EKG done. Overnight provider coverage paged about event. Per MD verbal order pt given Metoprolol dose of 50mg. Pt is currently deny chest pressure at this time and reports feeling more normal now . Will continue with plan of care. Consult note * Tariq Villalobos MD: PERFORM Event Display: Consultation Note Authored Date: Patient: ??ELKE DAVID ? Age:??68 Years?Sex:??Female?:??1955?? Chief Complaint/Reason for Consultation New onset AFib History of Present Illness Mrs. Vyas is a 68??years old female with significant chronic lung disease including restrictive and obstructive lung disease,??peripheral vascular??disease, CVA, hypertension. She had shortness of??breath with exertion chronically and stress test has been unremarkable. She had stroke and and MRA sh owed the??right intracranial carotid stenosis.? She underwent elective shoulder surgery at the end of May and was hospitalized to hospital 2 weeks later and stayed in the hospital for 2 weeks for respiratory failure.?? She was discharged home on July 09 and had a visiting nurse.?? She was found to have persistent rapid pulse and subsequently called our office.?? She was??sent to the hospital for further evaluation??and EKG by EMS showed irregular narrow complex tachycardia.?? The first EKG in the ER demonstrate atrial fibrillation with rapid ventricular heart rate.?? She denies palpitations, chest discomfort, or worsening for dyspnea.?? She converted back to sinus rhythm.?? Overnight, she remained in the sinus rhythm but with intermittent short runs of atrial tachycardia. ?? Review of Systems Constitutional: no fatigue, fever, chills, sweats Cardiac: as above Respiratory: chronic SOB Neuro: no changes in memory, vision or hearing, no seizures GI: no Nausea/vomiting/diarrhea : no dysuria or hematuria Musculoskeletal: no joint pain or muscle pain that is new Hematologic: no hematuria, melena, epistaxis or easy bruising Integument: no rashes or skin changes?? Objective Vital Signs?? Temperature: 98.1 DegF (07/23/23 10:44:00) Temperature Route: Oral (07/23/23 10:44:00) Pulse Rate: 78 bpm (07/23/23 10:44:00) Respiratory Rate: 17 br/min (07/23/23 10:44:00) Systolic Blood Pressure:??155 mm Hg??High (07/23/23 10:44:00) Diastolic Blood Pressure: 68 mm Hg (07/23/23 10:44:00) Blood pressure sites: Arm, right (07/23/23 10:44:00) Mean Arterial Pressure: 97 mm Hg (07/23/23 10:44:00) Pulse Pressure: 87 mm Hg (07/23/23 10:44:00) Oxygen Saturation: 96 % (07/23/23 10:44:00) Liters per Minute: 3 L/min (07/23/23 00:09:00) Mode of Delivery (Oxygen): Room air (07/23/23 10:44:00) FiO2: 30 % (07/23/23 03:09:00) Early Warning Score: 0 (07/23/23 10:44:44) ? Ventilator Settings?? FiO2: 30 % (03:09) ? Physical Exam General appearance: WDWN, no acute distress, resting comfortably?? HEENT: NCAT, negative JVD, carotid pulses are +2 bilaterally without carotid bruit Respiratory: reduced BS, no wheezing Cardiac: S1S2, heart rate regular, no murmurs/heaves/rubs/gallops Abdomen round, soft, non-tender, +bowel sounds x4 quadrants, no HSM appreciated?? Extremities: no edema, skin is warm Pulses: radial and pedal bilaterally +2 Neurologic: alert and oriented x3, grossly normal Mood and Affect: calm Integument: no rashes, dry and intact, warm Assessment/Plan Diagnoses ?? Atrial fibrillation COPD/asthma ?? Mrs. Surinder Vyas??has a history of COPD/asthma and required nocturnal oxygen.?? She had worsening of her respiratory status after shoulder surgery and now presented with new onset atrial fibrillation.?? She had palpitation symptoms previously and multiple prolonged heart monitor did not show atrial fibrillation.?? New onset of atrial fibrillation is probably triggered by underlying pulmonary problem.?? She is on metoprolol 50 mg daily.?? Due to her underlying asthma, COPD, I??will prefer to add additional Cardizem rather than increase metoprolol further.?? Her [id number] score is high at 6and she should be on anticoagulation.?? Eliquis could be started at 5 mg twice a day. ? Thank you very much for allowing me to participate in this patient's care. Histories Allergies Allergies ?(Active and Proposed Allergies Only) celecoxib? (Severity: Unknown severity, Onset: 06/12/2023) ?Reactions: gi upset Levaquin? (Severity: Unknown severity, Onset: Unknown) ?Reactions: itchy benazepril? (Severity: Unknown severity, Onset: Unknown) ?Reactions: cough ? Past Medical History/Problem List Active Problems??(30) Alcoholism Allergic rhinitis Anxiety Asthma Backache Calcium pyrophosphate deposition disease Candidiasis Celiac disease Cellulitis of left foot Chronic low back pain Chronic obstructive lung disease Claudication Disorder of artery Diverticulitis of colon Enthesopathy of wrist AND/OR carpus Essential hypertension Ex-smoker Fibromyalgia Fibromyalgia Gastritis Gastroesophageal reflux disease Hypertensive disorder Hypokalemia Memory loss Osteopenia Pain disorder associated with psychological and physical factors Plantar fascial fibromatosis Renal artery stenosis Rib pain post trauma Vitamin D deficiency ? Past Surgical History No surgery history documented. ? Social History Alcohol Details:??Use: Never. Details:??Use: Never. 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 Substance Abuse Details:??Use: Never. Details:??Use: Never. Tobacco Details:??Use: Never (less than 100 in lifetime). Details:??Former smoker, Type: Cigarettes. ? Family History Father: CAD - Coronary artery disease ? Medications Home Medications Acetaminophen (acetaminophen 325 mg oral tablet)?650?Milligram?2?tablet?By Mouth?Every 6 hours Albuterol (ProAir HFA 90 mcg/inh inhalation aerosol with adapter)?2?puff(s)?Inhalation?4 times a day?as needed?for 30?Days?Wheezing/Shortness of Breath Aspirin (aspirin 81 mg oral delayed release tablet)?1?tab(s)?81?Milligram?By Mouth?Daily Atorvastatin (atorvastatin 40 mg oral tablet)?1?tab(s)?40?Milligram?By Mouth?Daily in AM Calcium And Vitamin D Combination (calcium (as carbonate)-vitamin D 500 mg-400 intl units oral tablet)?By Mouth?Daily?ORAL, TABLET, 0 Refill(s), Clopidogrel (Plavix 75 mg oral tablet)?75?Milligram?1?tablet?By Mouth?Daily Docusate-Senna (docusate-senna 50 mg-8.6 mg oral capsule)?2?capsule?By Mouth?Daily in PM Duloxetine (Cymbalta 30 mg oral enteric coated capsule)?1?capsule?30?Milligram?By Mouth?Daily in AM?ORAL, CAPSULE, DELAYED RELEASE PELLETS, 0 Refill(s), fluticasone/umeclidinium/vilanterol (Trelegy Ellipta 200 mcg-62.5 mcg-25 mcg/inh inhalation powder)?1?puff(s)?Inhalation?Daily?for 30?Days?at the same time every day Furosemide (furosemide 20 mg oral tablet)?20?Milligram?1?tablet?By Mouth?Every Wednesday, Wednesday and Wednesday?for 30?Days Metoprolol (metoprolol 25 mg oral tablet, extended release)?50?Milligram?2?tablet?ByMouth?Daily?ORAL, TABLET, EXTENDED RELEASE, 0 Refill(s), Miscellaneous Rx (DAILY ADISY TABLET)?1?tab(s)?By Mouth?Daily Oxycodone (oxyCODONE 5 mg oral tablet)?5?Milligram?1?tablet?By Mouth?2 times a day?as needed?Pain , Moderate Polyethylene Glycol 3350 (MiraLax oral powder for reconstitution)?17?gram?By Mouth?Daily?as needed?Constipation?dissolve in water or juice Pregabalin (pregabalin 75 mg oral capsule)?1?capsule?75?Milligram?TAKE 1 CAPSULE BY MOUTH EVERY 8 HOURS sarilumab (Kevzara 150 mg/1.14 mL subcutaneous solution)?Subcutaneous Infusion?Every 14 days SulfaSALAZINE (sulfaSALAzine 500 mg oral tablet)?2?tab(s)?1,000?Milligram?By Mouth?2 times a day Valsartan (valsartan 80 mg oral tablet)?TAKE 1 TABLET BY MOUTH EVERY DAY Vitamin E?By Mouth?Daily ? Results Recent Labs BLOOD COUNT & DIFF WBC 4.6 k/mm3 ()?? 07/23/2023 01:06 RBC 2.98 m/mm3 (Low)?? 07/23/2023 01:06 Hgb 9.9 Gm/dL (Low)?? 07/23/2023 01:06 Hct 31.1 % (Low)?? 07/23/2023 01:06 MCV 104.4 femtoliters (High)?? 07/23/2023 01:06 MCH 33.2 pg ()?? 07/23/2023 01:06 MCHC 31.8 g/dL (Low)?? 07/23/2023 01:06 Platelet Count 258 k/mm3 ()?? 07/23/2023 01:06 RDW-SD 53.0 femtoliters (High)?? 07/23/2023 01:06 MPV 10.4 femtoliters ()?? 07/23/2023 01:06 Nucleated RBC (Automated) 0.0 #/100 WBC'S ()?? 07/23/2023 01:06 Abs. NRBC 0.0 k/mm3 ()?? 07/23/2023 01:06 Abs. Neut 2.3 k/mm3 ()?? 07/22/2023 18:32 Abs. Lymph 2.3 k/mm3 ()?? 07/22/2023 18:32 Abs. Dare 0.6 k/mm3 ()?? 07/22/2023 18:32 Abs. Eo 0.2 k/mm3 ()?? 07/22/2023 18:32 Abs. Baso 0.0 k/mm3 ()?? 07/22/2023 18:32 Neut % 42.6 % (Low)?? 07/22/2023 18:32 Lymph % 42.0 % ()?? 07/22/2023 18:32 Dare % 11.2 % (High)?? 07/22/2023 18:32 Eos % 3.4 % ()?? 07/22/2023 18:32 Baso % 0.6 % ()?? 07/22/2023 18:32 Imm Gran 0.2 % ()?? 07/22/2023 18:32 Abs. Imm Gran 0.0 k/mm3 ()?? 07/22/2023 18:32 ?? CARDIAC High Sensitivity Troponin (HSTnT) 27 ng/L (High)?? 07/23/2023 02:22 ?? CHEM GENERAL Sodium 143 mmol/L ()?? 07/23/2023 01:06 Potassium 3.3 mmol/L (Low)?? 07/23/2023 01:06 Chloride 101 mmol/L ()?? 07/23/2023 01:06 Bicarbonate Level 30 mmol/L (High)?? 07/23/2023 01:06 Anion Gap 12 ()?? 07/23/2023 01:06 Glucose Level 99 mg/dL ()?? 07/22/2023 18:32 Glucose, POC 129 mg/dL (High)?? 07/22/2023 17:29 BUN 11 mg/dL ()?? 07/23/2023 01:06 Creatinine-Blood 0.6 mg/dL ()?? 07/23/2023 01:06 Estimated GFR Creatinine 101 ML/MIN/1.73 M2 ()?? 07/23/2023 01:06 Calcium 9.4 mg/dL ()?? 07/22/2023 18:32 Calcium, Ionized pH Corrected 1.17 mmol/L ()?? 07/22/2023 18:32 Magnesium 1.6 mg/dL ()?? 07/22/2023 18:32 ?? ENDOCRINE/TUMOR MARKER TSH 1.37 uIU/mL ()?? 07/22/2023 18:32 ?? URINE OTHER Est Creatinine Clearance 78.91 mL/min ()?? 07/22/2023 19:52 ? CBC, CBC w/Diff?? CBC?? Differential?? WBC: 4.6 k/mm3 (:) Abs. Neut: 2.3 k/mm3 (18:32) RBC:??2.98 m/mm3??Low (:) Abs. Lymph: 2.3 k/mm3 (18:32) Hct:??31.1 %??Low (:) Abs. Dare: 0.6 k/mm3 (18:32) RDW-SD:??53 femtoliters??High (:) Abs. Eo: 0.2 k/mm3 (18:32) Nucleated RBC (Automated): 0 #/100 WBC'S (:) Abs. Baso: 0 k/mm3 (18:32) Abs. NRBC: 0 k/mm3 (:) Neut %:??42.6 %??Low (18:32) ?? Lymph %: 42 % (18:32) ?? Dare %:??11.2 %??High (18:32) ?? Eos %: 3.4 % (18:32) ?? Baso %: 0.6 % (18:32) ?? Imm Gran: 0.2 % (18:32) ?? Abs. Imm Gran: 0 k/mm3 (18:32) ? BMP, Mg, and Phos Anion Gap: 12 (:06) Bicarbonate Level:??30 mmol/L??High (01:06) BUN: 11 mg/dL (01:06) Calcium: 9.4 mg/dL (18:32) Calcium, Ionized pH Corrected: 1.17 mmol/L (18:32) Chloride: 101 mmol/L (:06) Creatinine-Blood: 0.6 mg/dL (:06) Estimated GFR Creatinine: 101 ML/MIN/1.73 M2 (:06) Glucose Level: 99 mg/dL (18:32) Magnesium: 1.6 mg/dL (18:32) Potassium:??3.3 mmol/L??Low (:06) Sodium: 143 mmol/L (:06) ?? Coagulation Profile?? No qualifying data available. ?? LFT?? No qualifying data available. ?? Cardiology Labs High Sensitivity Troponin (HSTnT):??27 ng/L??High (07/23/23 02:22:00) High Sensitivity Troponin (HSTnT):??22 ng/L??High (07/22/23 22:05:00) High Sensitivity Troponin (HSTnT):??23 ng/L??High (07/22/23 18:32:00) ?? EKG: afib with HR 154 Note * Jessica Mendoza RN: PERFORM Event Display: Discharge/Transfer Note Hospital Authored Date: Nursing Discharge Note Entered On: 07/23/2023 17:32 EDT Performed On: 07/23/2023 17:32 EDT by Jessica Mendoza RN Nursing Discharge Note 2 Discharge Time : 07/23/2023 17:20 EDT Discharge Level of Care at Discharge : Homehealth/VNA Discharge VNA/Hospice/Home Care(v001) : [facility] Patient Left Unit Via : [facility] Patient Accompanied Off Unit with : Ambulance/[facility] Personnel Handover Given to Transport Personnel : Yes DC Instructions Provided & Signed by Pt : Yes Patient Understands D/C Instructions : Yes Verbalized Understanding of D/C Plan By : Patient Patient Instructions Discharge Signed : Yes Did Pt have Specialty Bed or Wound Vac : Jessica Washington RN 07/23/2023 17:32 EDT * Booker Figueroa DO: MODIFY, MODIFY, PERFORM Event Display: Discharge/Transfer Note Hospital Authored Date: [id number] Patient: ??ELKE DAVID ? Age:??68 Years?Sex:??Female?:??1955?? Patient Information Discharge Location: [facility] Primary Care Physician: Romelia ULRICH, Fe Dubois Admit Date/Time: 07/22/23 17:22 Discharge Disposition Discharge Disposition: Home with Home Health Discharge Diagnosis Asthma with COPD (J44.9) Atrial fibrillation (I48.91) Diastolic heart failure (I50.30) SHO (G47.33) Peripheral arterial disease (I73.9) Rheumatoid arthritis (M06.9) Chronic??Respiratory failure with hypoxia (J96.11) ?? _ Discharge Medications Acetaminophen (acetaminophen 325 mg oral tablet)?650?Milligram?2?tablet?By Mouth?Every 6 hours Albuterol (ProAir HFA 90 mcg/inh inhalation aerosol with adapter)?2?puff(s)?Inhalation?4 times a day?as needed?for 30?Days?Wheezing/Shortness of Breath apixaban (apixaban 5 mg oral tablet)?1?tab(s)?5?Milligram?By Mouth?2 times a day Atorvastatin (atorvastatin 40 mg oral tablet)?1?tab(s)?40?Milligram?By Mouth?Daily in AM Calcium And Vitamin D Combination (calcium (as carbonate)-vitamin D 500 mg-400 intl units oral tablet)?By Mouth?Daily?ORAL, TABLET, 0 Refill(s), Clopidogrel (Plavix 75 mg oral tablet)?75?Milligram?1?tablet?By Mouth?Daily Diltiazem (Cardizem CD 120 mg/24 hours oral capsule, extended release)?120?Milligram?By Mouth?Daily Docusate-Senna (docusate-senna 50 mg-8.6 mg oral capsule)?2?capsule?By Mouth?Daily in PM Duloxetine (Cymbalta 30 mg oral enteric coated capsule)?1?capsule?30?Milligram?By Mouth?Daily in AM?ORAL, CAPSULE, DELAYED RELEASE PELLETS, 0 Refill(s), fluticasone/umeclidinium/vilanterol (Trelegy Ellipta 200 mcg-62.5 mcg-25 mcg/inh inhalation powder)?1?puff(s)?Inhalation?Daily?for 30?Days?at the same time every day Furosemide (furosemide 20 mg oral tablet)?20?Milligram?1?tablet?By Mouth?Every Wednesday, Wednesday and Wednesday?for 30?Days Metoprolol (metoprolol 25 mg oral tablet, extended release)?50?Milligram?2?tablet?ByMouth?Daily?ORAL, TABLET, EXTENDED RELEASE, 0 Refill(s), Miscellaneous Rx (DAILY DAISY TABLET)?1?tab(s)?By Mouth?Daily Oxycodone (oxyCODONE 5 mg oral tablet)?5?Milligram?1?tablet?By Mouth?2 times a day?as needed?Pain , Moderate Polyethylene Glycol 3350 (MiraLax oral powder for reconstitution)?17?gram?By Mouth?Daily?as needed?Constipation?dissolve in water or juice Pregabalin (pregabalin 75 mg oral capsule)?1?capsule?75?Milligram?TAKE 1 CAPSULE BY MOUTH EVERY 8 HOURS sarilumab (Kevzara 150 mg/1.14 mL subcutaneous solution)?Subcutaneous Infusion?Every 14 days SulfaSALAZINE (sulfaSALAzine 500 mg oral tablet)?2?tab(s)?1,000?Milligram?By Mouth?2 times a day Valsartan (valsartan 80 mg oral tablet)?TAKE 1 TABLET BY MOUTH EVERY DAY Vitamin E?By Mouth?Daily ? Medications Started apixaban (apixaban 5 mg oral tablet)?1?tab(s)?5?Milligram?By Mouth?2 times a day Diltiazem (Cardizem CD 120 mg/24 hours oral capsule, extended release)?120?Milligram?By Mouth?Daily Medications Discontinued Aspirin Doses Changed None Allergies Allergies ?(Active and Proposed Allergies Only) celecoxib? (Severity: Unknown severity, Onset: 06/12/2023) ?Reactions: gi upset Levaquin? (Severity: Unknown severity, Onset: Unknown) ?Reactions: itchy benazepril? (Severity: Unknown severity, Onset: Unknown) ?Reactions: cough ? PCP Follow-Up/Heads-Up New onset A. fib Hospital Course Patient presented via EMS after her visiting nurse found her heart rate to be up in the 200s.?She received adenosine twice??by paramedics but had no relief. In the emergency department she was noted to be in atrial fibrillation with RVR rate 150 which improved after receiving diltiazem. She was admitted for further management of new atrial fibrillation. During her hospital stay she woke up with chest pain and anxiety during hospital night 1 brief periods of nausea. She had elevated blood pressure EKG was obtained which confirmed she was back in normal sinus rhythm. However telemetry shows she had rapid A-fib with RVR for approximately 1 minute. Following morning she felt fine she was seen by cardiology who recommends??continuing metoprolol and adding??diltiazem.??Recommend starting??Eliquis for the new onset A-fib and stopping??the aspirin. She will continue taking the Plavix ?? Objective Assessment and Plan 68-year-old female with history??of diastolic heart failure,??PAD,??CVA,??hypertension, alcohol use, rheumatoid arthritis,??asthma/COPD??presents??with tachycardia.? Atrial fibrillation (I48.91):?? Recommend: ??? Continue metoprolol 50 mg daily ?Started on diltiazem 120 mg daily ??? Follow-up with cardiology outpatient ??? Started on apixaban 5 mg twice daily ??? Discontinued aspirin, will continue Plavix ?? Diastolic heart failure (I50.30):??Continue Lasix as needed ?? SHO (G47.33):?? Asthma with COPD (J44.9): Chronic??Respiratory failure with hypoxia (J96.11) secondary to COPD Recommend: ??? Continue??Trelegy ??? Patient was??set up with??[facility]??with [employer].?? To get her new??machine at home. -Patient will need a noninvasive ventilator at home??to help with gas exchange, reduce readmissions, improve quality of life ?? Peripheral arterial disease (I73.9):?? Follows with vascular.??Has right lower extremity stent Recommend: ???Continue aspirin and Plavix ?? Rheumatoid arthritis (M06.9):?? Continue sulfasalazine Upon discharge continue Kevzara injection every 2 weeks ? Measurements?? Height: 162 cm (07/23/23) Weight: 75 kg (07/22/23) Dry Weight: 75 kg (07/22/23) Body Mass Index:??28.58 kg/m2??High (07/22/23) ? Vital Signs?? Temperature: 98.1 DegF (07/23/23 10:44:00) Temperature Route: Oral (07/23/23 10:44:00) Pulse Rate: 78 bpm (07/23/23 10:44:00) Respiratory Rate: 17 br/min (07/23/23 10:44:00) Systolic Blood Pressure:??155 mm Hg??High (07/23/23 10:44:00) Diastolic Blood Pressure: 68 mm Hg (07/23/23 10:44:00) Blood pressure sites: Arm, right (07/23/23 10:44:00) Mean Arterial Pressure: 97 mm Hg (07/23/23 10:44:00) Pulse Pressure: 87 mm Hg (07/23/23 10:44:00) Oxygen Saturation: 96 % (07/23/23 10:44:00) Liters per Minute: 3 L/min (07/23/23 00:09:00) Mode of Delivery (Oxygen): Room air (07/23/23 10:44:00) FiO2: 30 % (07/23/23 03:09:00) Early Warning Score: 0 (07/23/23 10:44:44) ? . Physical Exam General: No acute distress HEENT: EOMI, mucous membranes moist CV: RRR S1 S2 present. No murmurs, gallops, rubs appreciated.??trace left lower extremity edema Respiratory: All roman clear to auscultation bilaterally. No wheezes, rales, rhonchi appreciated Abdominal: Soft, nontender. No rebound tenderness. Bowel sounds noted all four quadrants. Negative Carnett sign. : No suprapubic tenderness. Neuro: A&OX3. Moving upper and lower extremities. No gross neurological deficits Psych: Affect appropriate Skin: No acute lesions, wounds, rashes. [facility] Cardiology Pending Results No Pending Results Patient Education Titles Atrial Fibrillation?? Patient Instructions You were in the??hospital due to??your heart racing really fast and you were found to be in atrial fibrillation which is the first time this is happened to you.?? You were given a medication diltiazem??to control your heart rate.?? You have been back in normal sinus rhythm??however you had??A-fib with a fast heart rate??during the night??although you converted back into normal sinus rhythm.?You were seen by the cigar head pegger??who recommended:??Continue metoprolol??50 mg??daily,??adding diltiazem 120 mg daily, adding??Eliquis 5 mg twice a day. ??You should stop taking aspirin.?? Continue taking??your Plavix. ?? You should follow-up with your primary care physician??within the next 1 to 2 weeks??to discuss hernew diagnosis of atrial fibrillation. ?? If symptoms worsen or new symptoms develop, please seek medical attention. If you do not have a PCP, please call the [facility] PCP hotline [phone]. Home Health Face to Face *Denotes mandatory roman ?? *I certify that this patient is under my care and that I or an allowed non- physician working with me had a face to face encounter with the patient on this date:??07/23/2023 13:53 ?? *The encounter with the patient was in whole, or in part, for the following medical condition, which is the primary diagnosis(es) for home health care:??Asthma with COPD (J44.9) Atrial fibrillation (I48.91) Diastolic heart failure (I50.30) SHO (G47.33) Peripheral arterial disease (I73.9) Rheumatoid arthritis (M06.9) ? *Select the indications for the discipline/s that are being arranged for this patient. Nursing (select all that apply): [_] None [_] Medication management (reconciliation, teaching)?? [X_] Chronic disease management?? [_] Wound care and treatment?? [_] Home safety evaluation [_] Administer SQ/IM/IV medications?? [_] Cath care?? [_] Drain care?? [_] Trach or GT care?? Other _ Occupation Therapy (select all that apply): [_] None [X_] ADL Management [_] Fall prevention training [_] Energy conservation [_] Cognitive training Other _ Physical Therapy (select all that apply): [_] None [_X] Functional mobility training [_X] Home exercise program to strengthen [_] Increase ROM?? [_] Falls prevention training [_X] Home maintenance program for chronic disease Other _ Speech Therapy (select all that apply): [_] None [_] Swallow evaluation and training [_] Speech and language training [_] Cognitive training to process, organize, and/or recall information Other _ ? *Homebound due to (select all that apply): [_] Inability to leave home without assistance/supervision [_] Inability to ambulate without assistance [_] Pain [_X] Decreased strength and endurance [X_] Unsteady gait [_X] Severe SOB and fatigue [_] Impaired transfers [_] Inability to negotiate stairs [_] Limited weight bearing [_] Mental status change? *Physician Signature:??Booker Figueroa DO ?? *By signing this, I certify that I have personally evaluated the patient and agree with the findings and recommendations as documented above. ? F Results Discharge Labs BLOOD COUNT & DIFF WBC 4.6 k/mm3 ()?? 07/23/2023 01:06 RBC 2.98 m/mm3 (Low)?? 07/23/2023 01:06 Hgb 9.9 Gm/dL (Low)?? 07/23/2023 01:06 Hct 31.1 % (Low)?? 07/23/2023 01:06 MCV 104.4 femtoliters (High)?? 07/23/2023 01:06 MCH 33.2 pg ()?? 07/23/2023 01:06 MCHC 31.8 g/dL (Low)?? 07/23/2023 01:06 Platelet Count 258 k/mm3 ()?? 07/23/2023 01:06 RDW-SD 53.0 femtoliters (High)?? 07/23/2023 01:06 MPV 10.4 femtoliters ()?? 07/23/2023 01:06 Nucleated RBC (Automated) 0.0 #/100 WBC'S ()?? 07/23/2023 01:06 Abs. NRBC 0.0 k/mm3 ()?? 07/23/2023 01:06 Abs. Neut 2.3 k/mm3 ()?? 07/22/2023 18:32 Abs. Lymph 2.3 k/mm3 ()?? 07/22/2023 18:32 Abs. Dare 0.6 k/mm3 ()?? 07/22/2023 18:32 Abs. Eo 0.2 k/mm3 ()?? 07/22/2023 18:32 Abs. Baso 0.0 k/mm3 ()?? 07/22/2023 18:32 Neut % 42.6 % (Low)?? 07/22/2023 18:32 Lymph % 42.0 % ()?? 07/22/2023 18:32 Dare % 11.2 % (High)?? 07/22/2023 18:32 Eos % 3.4 % ()?? 07/22/2023 18:32 Baso % 0.6 % ()?? 07/22/2023 18:32 Imm Gran 0.2 % ()?? 07/22/2023 18:32 Abs. Imm Gran 0.0 k/mm3 ()?? 07/22/2023 18:32 ?? CARDIAC High Sensitivity Troponin (HSTnT) 27 ng/L (High)?? 07/23/2023 02:22 ? CHEM GENERAL Sodium 143 mmol/L ()?? 07/23/2023 01:06 Potassium 3.3 mmol/L (Low)?? 07/23/2023 01:06 Chloride 101 mmol/L ()?? 07/23/2023 01:06 Bicarbonate Level 30 mmol/L (High)?? 07/23/2023 01:06 Anion Gap 12 ()?? 07/23/2023 01:06 Glucose Level 99 mg/dL ()?? 07/22/2023 18:32 Glucose, POC 129 mg/dL (High)?? 07/22/2023 17:29 BUN 11 mg/dL ()?? 07/23/2023 01:06 Creatinine-Blood 0.6 mg/dL ()?? 07/23/2023 01:06 Estimated GFR Creatinine 101 ML/MIN/1.73 M2 ()?? 07/23/2023 01:06 Calcium 9.4 mg/dL ()?? 07/22/2023 18:32 Calcium, Ionized pH Corrected 1.17 mmol/L ()?? 07/22/2023 18:32 Magnesium 1.6 mg/dL ()?? 07/22/2023 18:32 ? ENDOCRINE/TUMOR MARKER TSH 1.37 uIU/mL ()?? 07/22/2023 18:32 ? URINE OTHER Est Creatinine Clearance 78.91 mL/min ()?? 07/22/2023 19:52 ? Imaging(s) ?Chest Portable ?? 07/22/2023 18:38??by Lyla Vu MD ?patricia For Exam Chest Pain;Other: ?? RESULT: Chest Portable Chest Portable ?? INDICATION: Hx of Present Illness: Pt presented to ED for tachycardia 150s; Reason: Other:; Chest Pain; Clinical Question(s): CHF ?? COMPARISON: 07/06/2023 ?? FINDINGS: ?? LINES AND TUBES: None. ?? LUNGS AND PLEURA: Hazy opacities in the mid lower right lung and left base are redemonstrated. There is no vascular congestion. ?? No effusion or pneumothorax. ?? HEART, MEDIASTINUM AND DEJA: The cardiac silhouette is mildly enlarged. The mediastinal contours are unchanged. ?? BONES AND SOFT TISSUES: No acute abnormality. ?? IMPRESSION: ?? Bibasilar airspace disease which may related to a combination of fibrotic changes and atelectasis. No new consolidation. ?? Mild cardiomegaly. ? 30??minutes spent on discharge * Phuc ULRICH, Cat: PERFORM Event Display: Discharge/Transfer Note Hospital Authored Date: Patient seen and examined on the date of service.?? Seen with the resident as well,??discussed withthe resident regarding plan of care.?? Reviewed note and agree to the plan as outlined above. In brief, 68-year-old female??with history of??peripheral vascular disease, CVA, hypertension, rheumatoid arthritis presenting to the emergency room??after noting to have heart rate in the 150s??in atrial fibrillation.?? She received Cardizem??in the emergency room,??with improvement in the heart rate.?? Echocardiogram done recently showed EF of 60 to 65%. ??Currently in sinus rhythm.?? Discussedwith cardiology,??at this time recommended to continue with the metoprolol and Cardizem has been added??for better rate control. ??Given the new onset A-fib,??will start on Eliquis for anticoagulation. ??DC aspirin and continue with Plavix and??Eliquis alone for now. ??Further outpatient??follow-up with??cardiology in few weeks.?? Patient without any symptoms at this time,??stable for discharge??home * Johnny GABRIEL, Daisha Nolasco: PERFORM Event Display: Patient Education/Instruction Authored Date: [id number] Inpatient Adult Discharge Instructions [address] [id number] Name: ELKE VYAS : 1955 Visit: 07/22/2023 17:22:00 Current Date: 07/23/2023 14:29 Account: [id number] Inpatient Adult Discharge Instructions We would like to thank [...] and their families. Surveys are administered by [employer] ?? If further treatment with your primary care physician or another doctor is recommended, it is important for you to keep the appointment. Call your primary care physician or return to the Emergency Department immediately if your condition worsens, fails to improve, or new symptoms develop. If you need to find a doctor, you can call [facility] for a referral at [phone] or toll free at [phone] ([phone]) or log in to [email or web address].. ?? [facility], in keeping with [facility] guidance, no longer requires face masks for [...] a health care fly of your choosing. [employer] is a website that allows you to securely view your medical information including your hospital discharge summary, office visit summaries, medications and follow-up visits. You can also request appointments, renew medications, and request access to your medical information using a health care fly of your choosing, or just ask a question. You can enroll at [email or web address] or register during your next office visit. You have been discharged from [facility], Patient Care Unit: D3B. If you have any questions regarding these instructions after you leave, please call us and we will be happy to assist you. [facility] Your Care Team Attending Physician Phuc ULRICH, Cat Consulting Providers Wilfredo ULRICH, Tariq Discharging Providers Booker Figueroa DO Reason for Admission See BRYAN sheet Your Diagnosis Atrial fibrillation Diastolic heart failure Peripheral arterial disease Rheumatoid arthritis Asthma with COPD SHO on CPAP Tests Performed Below is a partial list of the tests performed during your hospitalization. You may have had other tests and procedures not included in this list. Please discuss all test results with your provider. Basic Metabolic Panel BUN CBC CBC w/ Differential Creatinine Electrolytes GLUCOSE POC High??Sensitivity??Troponin T Ionized Calcium Magnesium Level Troponin T, High Sensitivity TSH with T4 Reflex (Adults Only) XR Chest Portable Primary Care Provider Romelia ULRICH, Fe Dubois Advance Directive Health Care Proxy on File Yes - Health Care Proxy Discharge Vitals Temperature: 98.1 DegF Height: 162 cm Pulse Rate: 78 bpm Weight: 75 kg Respiratory Rate: 17 br/min Body Mass Index:??28.58 kg/m2??High Systolic Blood Pressure:??155 mm Hg??High Body surface area: 1.84 Diastolic Blood Pressure: 68 mm Hg ?? Oxygen Saturation: 96 % ?? Studies Pending All tests and labs ordered during this hospital stay have been completed unless listed below. Please discuss all pending results with your provider listed above in these instructions. ?? No incomplete studies found What to do next Instructions From Your Doctor You were in the??hospital due to??your heart racing really fast and you were found to be in atrial fibrillation which is the first time this is happened to you.?? You were given a medication diltiazem??to control your heart rate.?? You have been back in normal sinus rhythm??however you had??A-fib with a fast heart rate??during the night??although you converted back into normal sinus rhythm.?You were seen by the cigar head pegger??who recommended:??Continue metoprolol??50 mg??daily,??adding diltiazem 120 mg daily, adding??Eliquis 5 mg twice a day. ??You should stop taking aspirin.?? Continue taking??your Plavix. ?? You should follow-up with your primary care physician??within the next 1 to 2 weeks??to discuss hernew diagnosis of atrial fibrillation. ?? If symptoms worsen or new symptoms develop, please seek medical attention. If you do not have a PCP, please call the [facility] PCP hotline [phone]. Discharge Orders You Need to Schedule the Following Appointments Follow Up with??Romelia ULRICH, Fe Dubois Where: [address] [place] [address] [place] [address]- Discharge Medications SURINDER DUARTEEDISONBUTCHELKE :1955 Visit Date:07/22/2023 Medications: Please continue your medications until treatment is completed or stopped by your provider. Medications not listed below should be discontinued. Discuss any questions related to medications with your provider. What How Much When Instructions Next Dose New apixaban (apixaban 5 mg oral tablet) 1 tab(s) Oral Twice a day Pickup at [place] [id number] Begin tonight New Diltiazem (Cardizem CD 120 mg/ 24 hours oral capsule, extended release) 120 Milligram Oral Daily Pickup at [facility] Tomorrow Unchanged Acetaminophen (acetaminophen 325 mg oral tablet) 2 tab(s) Oral Every 6 hours Take as directed Unchanged Albuterol (ProAir HFA 90 mcg/ inh inhalation aerosol with adapter) 2 puff(s) Inhalation 4 times a day as needed for Wheezing/Shortness of Breath Duration: 30 Days Take as directed Unchanged Atorvastatin (atorvastatin 40 mg oral tablet) 1 tab(s) Oral Daily in the morning Tomorrow Unchanged Calcium And Vitamin D Combination (calcium (as carbonate)-vitamin D 500 mg-400 intl unitsoral tablet) Oral Daily ORAL, TABLET, 0 Refill(s), ?? Take as directed Unchanged Clopidogrel (Plavix 75 mg oral tablet) 1 tab(s) Oral Daily Tomorrow Unchanged Docusate-Senna (docusate-senna 50 mg-8.6 mg oral capsule) 2 capsule Oral Daily in PM Take as directed Unchanged Duloxetine (Cymbalta 30 mg oral enteric coated capsule) 1 capsule Oral Daily in the morning ORAL, CAPSULE, DELAYED RELEASE PELLETS, 0 Refill(s), ?? Tomorrow Unchanged fluticasone/ umeclidinium/ vilanterol (Trelegy Ellipta 200 mcg-62.5 mcg-25 mcg/ inh inhalation powder) 1 puff(s) Inhalation Daily Duration: 30 Days at the same time every day ?? Take as directed Unchanged Furosemide (furosemide 20 mg oral tablet) 1 tab(s) Oral Wednesday, Wednesday and Wednesday Duration: 30 Days Take as directed Unchanged Metoprolol (metoprolol 25 mg oral tablet, extended release) 2 tab(s) Oral Daily ORAL, TABLET, EXTENDED RELEASE, 0 Refill(s), ?? Tomorrow Unchanged Miscellaneous Rx (DAILY DAISY TABLET) 1 tab(s) Oral Daily na Unchanged Oxycodone (oxyCODONE 5 mg oral tablet) 1 tab(s) Oral Twice a day as needed for Pain , Moderate Take as directed Unchanged Oxygen na Unchanged Polyethylene Glycol 3350 (MiraLax oral powder for reconstitution) 17 gram Oral Daily as needed for Constipation dissolve in water or juice ?? Take as directed Unchanged Pregabalin (pregabalin 75 mg oral capsule) 1 capsule TAKE 1 CAPSULE BY MOUTH EVERY 8 HOURS ?? Take as directed Unchanged sarilumab (Kevzara 150 mg/ 1.14 mL subcutaneous solution) Subcutaneous Infusion Every 14 days Take as directed Unchanged SulfaSALAZINE (sulfaSALAzine 500 mg oral tablet) 2 tab(s) Oral Twice a day Tonight Unchanged Valsartan (valsartan 80 mg oral tablet) TAKE 1 TABLET BY MOUTH EVERY DAY ?? Take as directed Unchanged Vitamin E Oral Daily Take as directed Pharmacy Information [facility]: [address] [place], [place] [id number] [phone] ?? What How Much When Comments Stop Taking Aspirin (aspirin 81 mg oral delayed release tablet) 1 tab(s) Oral Daily Discontinued Test Results Below is a partial list of the most recent Laboratory test results done prior to this discharge. You may have had other tests and procedures not included in this list. Please discuss all test resultswith your provider. Est Creatinine Clearance - 78.91 mL/min (07/22/2023) Basic Metabolic Panel (07/22/2023) ???Sodium - 144 mmol/L???Potassium - 3.6 mmol/L???Chloride - 101 mmol/L???Bicarbonate Level - 23 mmol/L???Anion Gap - 20???Glucose Level - 99 mg/dL???BUN - 13 mg/dL???Creatinine-Blood - 0.6 mg/dL???Estimated GFR Creatinine - 99 ML/MIN/1.73 M2???Calcium - 9.4 mg/dL BUN (07/23/2023) ???BUN - 11 mg/dL CBC (07/23/2023) ???WBC - 4.6 k/mm3???RBC - 2.98 m/mm3???Hgb - 9.9 Gm/dL???Hct - 31.1 %???MCV - 104.4 femtoliters???MCH - 33.2 pg???MCHC - 31.8 g/dL???Platelet Count - 258 k/mm3???RDW-SD - 53.0 femtoliters???MPV - 10.4 femtoliters???Nucleated RBC (Automated) - 0.0 #/100 WBC'S???Abs. NRBC - 0.0 k/mm3 CBC w/ Differential (07/22/2023) ???WBC - 5.4 k/mm3???RBC - 3.13 m/mm3???Hgb - 10.3 Gm/dL???Hct - 32.9 %???MCV - 105.1 femtoliters???MCH - 32.9 pg???MCHC - 31.3 g/dL???Platelet Count - 270 k/mm3???RDW-SD - 52.9 femtoliters???MPV - 9.9 femtoliters???Nucleated RBC (Automated) - 0.0 #/100 WBC'S???Abs. NRBC - 0.0 k/mm3???Abs. Neut - 2.3 k/mm3???Abs. Lymph - 2.3 k/mm3???Abs. Dare - 0.6 k/mm3???Abs. Eo - 0.2 k/mm3???Abs. Baso - 0.0 k/mm3???Neut % - 42.6 %???Lymph % - 42.0 %???Dare % - 11.2 %???Eos % - 3.4 %???Baso % - 0.6 %???Imm Gran - 0.2 %???Abs. Imm Gran - 0.0 k/mm3 Creatinine (07/23/2023) ???Creatinine-Blood - 0.6 mg/dL???Estimated GFR Creatinine - 101 ML/MIN/1.73 M2 Electrolytes (07/23/2023) ???Sodium - 143 mmol/L???Potassium - 3.3 mmol/L???Chloride - 101 mmol/L???Bicarbonate Level - 30 mmol/L???Anion Gap - 12 GLUCOSE POC (07/22/2023) ???Glucose, POC - 129 mg/dL High??Sensitivity??Troponin T (07/22/2023) ???High Sensitivity Troponin (HSTnT) - 23 ng/L Ionized Calcium (07/22/2023) ???Calcium, Ionized pH Corrected - 1.17 mmol/L Magnesium Level (07/22/2023) ???Magnesium - 1.6 mg/dL Troponin T, High Sensitivity (07/23/2023) ???High Sensitivity Troponin (HSTnT) - 27 ng/L TSH with T4 Reflex (Adults Only) (07/22/2023) ???TSH - 1.37 uIU/mL Allergies (NKA means No Known Allergies) Levaquin??(itchy) benazepril??(cough) celecoxib??(gi upset) Problems Active Problems??(30) Alcoholism?? Allergic rhinitis?? Anxiety?? Asthma?? Backache?? Calcium pyrophosphate deposition disease?? Candidiasis?? Celiac disease?? Cellulitis of left foot?? Chronic low back pain?? Chronic obstructive lung disease?? Claudication?? Disorder of artery?? Diverticulitis of colon?? Enthesopathy of wrist AND/OR carpus?? Essential hypertension?? Ex-smoker?? Fibromyalgia?? Fibromyalgia?? Gastritis?? Gastroesophageal reflux disease?? Hypertensive disorder?? Hypokalemia?? Memory loss?? Osteopenia?? Pain disorder associated with psychological and physical factors?? Plantar fascial fibromatosis?? Renal artery stenosis?? Rib pain post trauma?? Vitamin D deficiency?? Education Materials Below is the list of Educational Leaflet Providered with your Discharge Instructions. Atrial Fibrillation?? Valuables and Belongings I fully understand and agree that [facility] accepts no responsibility for all my personal [...] to send valuables and belongings home. ?? Date for Pt to Sign Valuables/Belongings: 07/22/23 21:58:00 ?? Other Discharge Information ? Case Management Discharge Plan?? Discharge Plan?? Discharge Agency Information?? Discharge Level of Care at Discharge: Homehealth/VNA Name of Agency #1: [facility] Discharge Transportation Arranged: [facility] Radha Dudley [facility] [id number] [phone] Agency Machine Stonecutter #1: Mode of Transportation Arranged: Chair Van Service Categories #1: Home health aide, Occupational Therapy, Physical Therapy, Penitentiary Discharge VNA/Hospice/Home Care: [facility] Comments #1: You are being discharged with [facility] to resume services. You will go by chairvan at specified time. Colin has brought you an O2 tank to travel home with. ?? Pulmonary Rehab Status?? Pulmonary Rehab Discharge Status?? CPAP/BiPAP Mask Type: Nasal CPAP/BiPAP Mask Size: Small Respiratory Rate: 17 br/min ? Common Emergency Awareness Tips IS IT [...] are strongly encouraged to quit. Please call [facility] Link at [phone] or [phone] ([phone]) or log in to [email or web address] for referrals to smoking cessation programs. ?? 541 Suicide & Crisis Lifeline is available 10/05 if you or someone you know needs to find a reason to keep living. By calling 744 you'll be connected to a skilled, trained counselor at a crisis center in your area. INPATIENT DISCHARGE INSTRUCTIONS SIGNATURE PAGE ELKE DAVID Location:[facility] Registration Date and Time:07/22/2023 17:22 EDT Primary Care Physician: Romelia ULRICH, Fe Dubois, Attending Physician: Cat Friend MD, I ELKE DAVID, have received the above patient education materials/instructions and haveverbalized understanding. If ambulance or transport services are being used I further acknowledge being given a choice of service. ?? If you need to contact me, please call me at this number: . Patient/Mexican Food Machine Tender Name: Patient/Mexican Food Machine Tender Signature: Relationship to Patient: Witness Name/Signature: Date: * Booker Figueroa DO: PERFORM Event Display: Patient Education Leaflets Authored Date: Atrial Fibrillation ?? [id number] Atrial Fibrillation Atrial fibrillation is a condition in which the heart beats in an irregular pattern. It is the mostcommon abnormal heart rhythm. It is caused by a problem in the heart's electrical pathways within the muscle of the upper chambers of the heart (atria). It can be a sign of heart disease or other health problems that affect the heart. Heart palpitations are a common symptom of atrial fibrillation. This is the feeling that your heartis fluttering, or beating fast, hard, or irregular. When the heart beats too fast, it doesn't pump blood very well. This can cause other symptoms, such as anxiety, fatigue, shortness of breath, chestpain, dizziness, or fainting. Atrial fibrillation may come and go on its own, which is known as paroxysmal atrial fibrillation. It can last from a few hours to a couple of days. Or it may become persistent, lasting for weeks or months at a time. It can even become lifelong (permanent). Some symptoms of atrial fibrillation are hard to notice. For instance, some people develop subtle fatigue. Others notice a reduced ability to exercise. Some people have no symptoms. Atrial fibrillation is more common in older adults. It may be caused by heart disease or other conditions in the body that affect the heart. They include: ??? Coronary artery disease (atherosclerosis), sometimes called blocked arteries ??? High blood pressure ??? Disease of the heart valves ??? Enlarged heart ??? Heart failure Atrial fibrillation can also occur without heart disease because of: ??? Overactive thyroid (hyperthyroid) ??? Chronic lung disease (COPD, emphysema, or bronchitis) ???Heavy alcohol use ??? Heart stimulants, such as cocaine, amphetamines, diet pills, certain decongestant cold medicines, caffeine, or nicotine ??? Infection ??? Blood clot in the lung (pulmonary embolus) ??? Diabetes ??? Chronic kidney disease ??? Obesity ??? Obstructive sleep apnea ??? Extreme and continued athletic conditioning ??? Certain genetic diseases Treating or removing these causes will help your treatment for atrial fibrillation. It will also make it less likely for it to come back. Atrial fibrillation can alternate back and forth with another abnormal rhythm called atrial flutter. Atrial flutter is a more regular heart rhythm. It is also linked to an increased risk for stroke. Correct treatment of these arrhythmias can lower your risk for stroke. Home care Follow these guidelines when caring for yourself at home: ??? Go back to your usual activities as soon as you are feeling back to normal. ??? If you smoke, stop smoking. Contact your healthcare provider or a local stop-smoking program for help. ??? Don't use stimulants like alcohol, cocaine, amphetamines, diet pills, certain decongestant cold medicines, caffeine, or nicotine. ??? If your providerprescribed medicine to stop atrial fibrillation from coming back, take it exactly as directed. Somemedicines must be taken every day, not just when you have symptoms. This will help them work as they should. ??? If you were prescribed a blood-thinning medicine, take it exactly as prescribed. One of these medicines, called warfarin, needs your blood to be tested regularly as advised by your healthcare provider. This will make sure you are getting the dose that is right for you. It also lowers your risk for side effects. You may have been prescribed other blood-thinning medicines that don't need regular testing. ?? Follow-up care Follow up with your healthcare provider as advised. ?? When to get medical care Call your healthcare provider if any of these occur: ??? Swelling in the legs that gets worse ??? Unexpected weight gain ??? Pain, redness, or swelling in 1 leg ?? Call 911 Calling 911 is the fastest and safest way to get the emergency department. The paramedics can also start treatment on the way to the hospital, if needed. Call 911 or get medical help right away if any of these occur: ??? Weakness of an arm, leg, one side of the face ??? Chest pain ??? Shortness of breath, or feeling that you can't get enough air ??? Feeling lightheaded, faint, or dizzy ??? Your heartbeat is very fast, slow, or irregular compared with your regular heartbeat ??? Uncontrolled bleeding ??? Trouble with speech or vision ??? Extreme drowsiness, confusion, dizziness, or fainting ?? Last Reviewed Date: 2022 ?? [id number] [employer]. All rights reserved. This information is not intended as a substitute for professional medical care. Always follow your healthcare professional's instructions. ?? Patient Care team information Care Team Personnel Name: Myrtle Lim RN Position: S RN Member Role: Primary Care Nurse Name: Fe León MD Position: S Physician - Primary Care Member Role: PCP Address: Address: [address] [place] [address] [address] [place] [address]- Name: Garett Osei RN Position: [facility] RN Member Role: Primary Care Nurse Name: Fe Harp RN Position: [facility] RN Member Role: Primary Care Nurse Name: Johanna Carmen RN Position: [facility] RN Member Role: Primary Care Nurse Name: Tiffany Zaldivar RN Position: [facility] RN Member Role: Primary Care Nurse Name: Huseyin Abrams RN Position: [facility] RN Member Role: Primary Care Nurse Name: Uma Herbert RN Position: [facility] RN Member Role: Primary Care Nurse Name: Marlena Byrne Position: [facility] RN Member Role: Primary Care Nurse Name: Ashley Gallardo RN Position: [facility] RN Member Role: Primary Care Nurse Name: Lorin Vu Position: [facility] AMB Nurse Member Role: Lifetime Consulting Physician Name: Opal Dumont RN Position: [facility] RN Member Role: Primary Care Nurse Name: Jamie Prince RN Position: [facility] RN Member Role: Primary Care Nurse Name: Dorothy Rosales RN Position: [facility] RN Member Role: Primary Care Nurse Name: Yee Melo RN Position: [facility] SN RN Member Role: Primary Care Nurse Name: Tracee Angelo RN Position: [facility] RN Member Role: Primary Care Nurse Name: Edda Ramirez RN Position: [facility] RN Member Role: Primary Care Nurse Name: Neris Sorto RN Position: [facility] RN Member Role: Primary Care Nurse Name: Garth Underwood RN Position: [facility] RN Member Role: Primary Care Nurse Name: Anahi Hall RN Position: [facility] RN Member Role: Primary Care Nurse Name: Desirae Oshea LPN Position: [facility] RN Member Role: Primary Care Nurse Name: Nathaniel RODRIGUEZ Attending Position: [facility] ED Medicine MD Name: Clay Armstrong MD Position: [facility] Resident Member Role: ED Resident Address: Address: [address] [place] [address] [place] [address]- Name: Derek Avendaño Position: [facility] ED TA [facility] Member Role: Mechanical Intern Name: Jacqueline Ward RN Position: [facility] ED RN W/OE and Tasks Member Role: Patient Care Provider Care Team Related Persons Name: POLLY DAVILA Name: POLLY OTOOLE Address: home [address] [place] [address] Name: TIFFANY VYAS Address: home [address] [place] [id number]
--- OUTSIDE RECORDS SUMMARY | 2023-12-07 10:43 | XMS_ITS | Continuity of Care Document ---
Author Name Unknown Organization [facility] Address [address] [place] [address]- Care Team Providers Care Home Health Cna Name Role Phone Romelia ULRICH, Fe Dubois Primary Care Physician Encounter [facility] Date(s): 09/03/21 - 10/24/21 [facility] [address] [place], [place] [address] Attending Physician: Fernanda Dave MD Admitting Physician: Fernanda Dave MD Referring Physician: Fransico Sanchez MD Allergies, Adverse Reactions, Alerts Substance Reaction [...] mL, 0 Refills, Maintenance, 07/21/21 10:19:00 EDT, [facility]/pharmacy #[id number], Please fill with ANY available gallon colon [...]
--- OUTSIDE RECORDS SUMMARY | 2023-12-07 10:43 | XMS_ITS | Continuity of Care Document ---
Author Name Unknown Organization [facility] ter Address [address] [place] [id number] Care Team Providers Care Manager Mechanical Maintenance Name Role Phone Romelia ULRICH, Fe Dubois Primary Care Physician Encounter [facility] [place] Date(s): 07/06/23 - 07/09/[address] [id number]- Encounter Diagnosis Exertional dyspnea(Final) - 07/06/23 Urinary tract infection(Final) - 07/06/23 Acute kidney injury(Final) - 07/06/23 COPD without exacerbation(Final) - 07/06/23 Discharge Disposition: A-Transfer VNA/Home Health Attending Physician: Leandro Gramajo MD Admitting Physician: Pete Dick MD Referring Physician: Not on Staff, Referring MD Allergies, Adverse Reactions, Alerts Substance Reaction Severity Status Levaquin itchy Active celecoxib gi upset Active benazepril cough Active Immunizations Given and Recorded Vaccine Date Status Refusal Reason pneumococcal 23-valent vaccine 08/07/15 Given influenza virus vaccine, inactivated 08/07/15 Give n Medications acetaminophen 325 mg oral tablet 650 mg, 2, tablet, By Mouth, Every 6 hours, Maintenance, 07/07/23 11:28:00 EDT, Partial fill upon patient request if the prescription is for a schedule II opioid drug. Start Date: 07/07/23 Status: Ordered aspirin 81 mg oral delayed release tablet 1 tablet = 81 mg, By Mouth, Daily, # 30 tablet, 0 Refills, Maintenance, 06/29/23 11:01:00 EDT, EC Tablet, [id number], Partial fill upon patient request if the prescription is for a schedule II opioid drug., 161, cm, 09/12/23 7:47:00 EDT, Heigh... Start Date: 06/29/23 Status: Ordered atorvastatin 40 mg oral tablet 1 tablet = 40 mg, By Mouth, Daily in AM, # 30 tablet, 0 Refills, Maintenance, 06/29/23 11:01:00 EDT, Tablet, [facility]/pharmacy #[id number], Partial fill upon patient request [...] 0 Refills, Maintenance, 07/09/23 12:14:00 EDT, Capsule, [facility]/pharmacy #[id number], Partial fill upon patient request if the prescription is for a schedule II opioid drug., 2 capsule By Mouth Daily in PM, 160, c... Start Date: 07/09/23 Status: Ordered furosemide 20 mg oral tablet 20 mg, 1, tablet, By Mouth, Every Wednesday, Wednesday and Wednesday, # 13 tablet, Refills 2, Tot. Refills 2, Maintenance, 06/29/23 16:23:00 EDT, Route to Pharmacy Electronically, [facility]/pharmacy #[id number], Partial fill upon patient request [...] 06/29/23 11:01:00 EDT, Route to Pharmacy Electronically, [facility]/pharmacy #[id number], Partial fill upon patient request if the... Start Date: 06/29/23 Status: Ordered metoprolol 50 mg oral tablet, extended release 50 mg, XL Tablet, By Mouth, 07/09/23 9:00:00 EDT Start Date: 07/09/23 Stop Date: 07/09/23 Status: Completed MiraLax oral powder for reconstitution = 17 Gm, By Mouth, Daily, PRN Constipation, dissolve in water or juice, # 527 Gm, 0 Refills, Maintenance, 07/09/23 12:12:00 EDT, REC Powder, [facility]/pharmacy #[id number], Partial fill upon patient request [...] 06/29/23 11:01:00 EDT, Route to Pharmacy Electronically, [facility]/pharmacy #[id number], Partial fill upon patient request [...] 11:01:00 EDT, Inhaler, Route to Pharmacy Electronically, [id number], [facility]/pharmacy #[id number], 161, cm, 06/29/23 7:47:00 ED... [...] each, 1 Refills, Maintenance, 06/29/2311:00:00 EDT, Powder, [facility]/pharmacy #[id number], Partial fill upon patient request if the prescription is for a schedule II opioid drug., 1 puffs Inhalation D... Start Date: 06/29/23 Stop Date: 08/28/23 Status: Ordered Vitamin E By Mouth, Daily, [...] Active Vitamin D deficiency Confirmed Active Results Orders for Microbiology Reports Name Date Urine Culture (URINE CULTURE) 07/07/23 Blood Culture 07/06/23 Blood Culture #2 07/06/23 Microbiology Reports TEST:Urine Culture STATUS:Auth (Verified) BODY SITE: SOURCE:URINE COLLECTED DATE/TIME:07/07/23 12:00 PM Urine Culture SPECIMEN DESCRIPTION : URINE SPECIAL REQUESTS : NONE CULTURE : Mixed bacterial jasmin, indicative of urogenital contamination. REPORT STATUS : FINAL 07/09/2023 TEST:Blood Culture, Second Order STATUS:Unauthenticated BODY SITE: SOURCE:Blood COLLECTED DATE/TIME:07/06/23 5:04 PM Blood Culture, Second Order SPECIMEN DESCRIPTION : BLOOD R HAND SPECIAL REQUESTS : NONE CULTURE : NO GROWTH 3 DAYS REPORT STATUS : PRELIMINARY REPORT TEST:Blood Culture STATUS:Unauthenticated BODY SITE: SOURCE:Blood COLLECTED DATE/TIME:07/06/23 4:37 PM Blood Culture SPECIMEN DESCRIPTION : BLOOD L ARM SPECIAL REQUESTS : NONE CULTURE : NO GROWTH 3 DAYS REPORT STATUS : PRELIMINARY REPORT Radiology Reports * Exam Date Time Procedure Performing Provider Status 07/08/23 9:17 PM US Doppler Ext Lower Venous Bilat Luz Andrews; Auth (Verified) Notes: (US Doppler Ext Lower Venous Bilat) Reason For Exam: Swelling Extremities RESULT: US Doppler Ext Lower Venous Bilat US Doppler Ext Lower Venous Bilat Reason: Swelling Extremities; Clinical Question(s): Thrombosis COMPARISON: None IMAGING TECHNIQUE: Ultrasound of the veins from the groin through the calf was performed using grayscale, color, and spectral Doppler ultrasound assessing for complete compressibility and normal flowcharacteristics. FINDINGS: RIGHT LOWER EXTREMITY: Common femoral vein: Patent. No thrombosis. Femoral vein: Patent. No thrombosis. Popliteal vein: Patent. No thrombosis. Gastrocnemius veins: The visualized portions are patent without evidence of thrombosis. Peroneal veins: The visualized portions are patent without evidence of thrombosis. Posterior tibial veins: The visualized portions are patent without evidence of thrombosis. LEFT LOWER EXTREMITY: Common femoral vein: Patent. No thrombosis. Femoral vein: Patent. No thrombosis. Popliteal vein: Patent. No thrombosis. Gastrocnemius veins: The visualized portions are patent without evidence of thrombosis. Peroneal veins: The visualized portions are patent without evidence of thrombosis. Posterior tibial veins: The visualized portions are patent without evidence of thrombosis. OTHER FINDINGS: There is diffuse lower extremity edema. IMPRESSION: No evidence of deep venous thrombosis. There is diffuse lower extremity edema. WSN: [id number] Ordering Physician: Leandro Gramajo Dictated By: Kenia Natarajan MD Dictated Date/Time: 07/09/23 12:42 p Reviewed By: Kenia Natarajan MD Signed By: Kenia Natarajan MD Signed Date/Time: 07/09/23 12:42 pm Transcribed By: IVELISSE Transcribed Date/Time: 07/09/23 7:56 am * Exam Date Time Procedure Performing Provider Status 07/06/23 9:[address] Angio Chest Henry Reyes Au th (Verified) Notes: (CT Angio Chest) Reason For Exam: PE suspected, Intermediate prob, positive D-dimer,;Other: RESULT: CT Angio Chest EXAMINATION: CT Angio Chest INDICATION: Hx of Present Illness: : sob t sob, recent discharge after having rotator cuff surgery,seen bu A and sent here for low sats, has non productive cough which is new .; Reason: Other:; PEsuspected, Intermediate prob, positive D-dimer,; Clinical Question(s): Pulmonary Embolism; Order Comment: TECHNIQUE: Spiral CTA of the chest was performed after rapid IV contrast administration without cardiac gating, triggered by an JESSICA on the main pulmonary artery. Images are formatted in multiple planes using 2-D multiplanar and 3-D maximum intensity projection. 61 cc of Omnipaque 300 was administered intravenously. Weight-based protocol using automatic tube modulation was used to optimize exposure parameters. CTDIvol Body: 2.74 mGy, DLP Body: 148 mGy*cm. COMPARISONS: None. ANGIOGRAPHIC FINDINGS: No pulmonary embolism to the subsegmental level. Normal caliber pulmonary arteries. No acute aortic abnormality seen on this study performed without cardiac gating. 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 Trachea and Airways: Patent without evidence of tracheal or endobronchial lesion. Lungs and Pleura: Bilateral bandlike densities noted involving the lung bases. These are similar previous examination. This may be related to previous pneumonia/organizing pneumonia. No new abnormality identified. No effusion or pneumothorax. Mediastinum and prince: No mass or hematoma. No mediastinal or hilar lymphadenopathy. No esophageal abnormality. Heart: Heart is normal in size. No pericardial effusion. Chest Wall Soft Tissues: Normal. Diaphragm and upper abdomen: No significant abnormality. Bones: Chronic right-sided rib fractures. IMPRESSION: No evidence of pulmonary embolism. No acute pulmonary abnormality identified. WSN: [id number] Ordering Physician: Bhargavi Montenegro Dictated By: Bill Ewing MD Dictated Date/Time: 07/06/23 10:16 p Reviewed By: Bill Ewing MD Signed By: Bill Ewing MD Signed Date/Time: 07/06/23 10:16 pm Transcribed By: IVELISSE Transcribed Date/Time: 07/06/23 10:07 pm * Exam Date Time Procedure Performing Provider Status 07/06/23 3:55 PM Chest 2 Views Frontal and Lat Thony Yang; Auth (Verified) Notes: (Chest 2 Views Frontal and Lat) Reason For Exam: Shortness of Breath RESULT: Chest 2 Views Frontal and Lat Chest 2 Views Frontal and Lat Hx of Present Illness: : sob t sob, recent discharge after having rotator cuff surgery, seen bu VNAand sent here for low sats, has non productive cough which is new .; Reason: Shortness of Breath; Clinical Question(s): Pneumonia; Special Instructions: This is a protocol film and radiologist shouldcall any findings to the Charge Nurse COMPARISON: X-ray 06/27/2023 FINDINGS: LINES AND TUBES: None. LUNGS AND PLEURA: Increasing consolidation in both lower lobes, right greater than left compatible with worsening pneumonia. Trace effusions may also be present. Upper lobes are clear. No pneumothorax. HEART, MEDIASTINUM AND PRINCE: Moderate prominence of the cardiac silhouette, unchanged. Normal mediastinal and hilar contour. BONES AND SOFT TISSUES: No acute abnormality. IMPRESSION: Increasing bibasilar opacity which could represent worsening pneumonia and/or developing effusions with atelectasis. WSN: [id number] Ordering Physician: Edwin Spangler Dictated By: Kristopher Hall MD Dictated Date/Time: 07/06/23 4:00 pm Reviewed By: Kristopher Hall MD Signed By: Kristopher Hall MD Signed Date/Time: 07/06/23 4:00 pm Transcribed By: IVELISSE Transcribed Date/Time: 07/06/23 3:59 pm Vital Signs Most recent to oldest [Reference Range]: 1 2 3 Height 160 cm (07/09/23 12:26 PM) 160 cm (07/09/23 8:21 AM) 160 cm (07/09/23 8:05 AM) Weight 76.5 kg (07/07/23 9:35 AM) Oxygen Saturation [94-100 %] 97 % (07/09/23 12:26 PM) 98 % (07/09/23 8:21 AM) 92 % *L* (07/09/23 8:05 AM) Pulse Rate [55-90 bpm] 72 bpm (07/09/23 12: PM) 70 bpm (07/09/23 8:27 AM) 70 bpm (07/09/23 8:21 AM) Body Mass Index [18.5-24.99 kg/m2] 29.88 kg/m2 *H* (07/07/23 9:35 AM) Blood Pressure [90-138/55-84 mm Hg] 149/59mm Hg *H* (07/09/23 12:26 PM) 135/57mm Hg (07/09/23 8:27 AM) 138/57mm Hg (07/09/23 8:21 AM) Respiratory Rate [16-30 br/min] 18 br/min (07/09/23 12:26 PM) 16 br/min (07/09/23 8:21 AM) 20 br/min (07/09/23 8:05 AM) Temperature [96.8-100.4 DegF] 98.8 DegF (07/09/23 12: PM) 97.5 DegF (07/09/23 8:21 AM) 97.6 DegF (07/09/23 8:05 AM) Liters per Minute 2 L/min (07/09/23 12: PM) 3 L/min (07/09/23 8:21 AM) 3 L/min (07/09/23 5:00 AM) Mode of Delivery (Oxygen) Nasal cannula (07/09/23 12:26 PM) Nasal cannula (07/09/23 8:21 AM) Room air (07/09/23 8:05 AM) Blood pressure sites Arm, right (07/09/23 12:26 PM) Arm, left (07/09/23 8:21 AM) Arm, left (07/09/23 8:05 AM) Temperature Route Oral (07/09/23 12:26 PM) Oral (07/09/23 8:21 AM) Oral (07/09/23 8:05 AM) Dry Weight 76.5 kg (07/07/23 9:35 AM) 76.5 kg (07/06/23 11:13 PM) 76.5 kg (07/06/23 12:38 PM) Dry Weight Obtained Via Patient/family s tated (07/06/23 12:38 PM) Social History Social History Type Response Smoking Status Never (less than 100 in lifetime) entered on: 06/18/23 Sex Admission evaluation note * Dusty ULRICH, Maryann Welch: PERFORM, MODIFY Event Display: Admission Note Authored Date: [id number] Patient: ??ELKE DAVID ? Age:??68 Years?Sex:??Female?:??1955?? Chief Complaint/Reason for Consultation sob, recent discharge after having rotator cuff surgery, seen bu A and sent here for low sats, has non productive cough which is new History of Present Illness 68-year-old gentleman with past medical history of peripheral vascular disease, COPD on 2 L nasal cannula, idiopathic neuropathy, hypertension,??SHO on home??CPAP??who had recent??rotator cuff??surgery??was recently discharged??from the hospital??after rotator cuff surgery??which was complicated??po stoperatively??with acute on chronic??respiratory failure??requiring oxygen. ??The patient was??transferred to [facility]??for further evaluation and treatment??of acute renal failure. Review of Systems Constitutional: No fever HEENT: No visual loss, blurred vision, double vision or yellow sclera. No runny nose or sore throat. Cardiovascular: No chest pain, palpitations or pedal edema. Respiratory: Shortness of breath.??No cough or sputum production. Gastrointestinal: No nausea, vomiting or diarrhea. No abdominal pain.?? Neurologic: No headache, dizziness, unilateral weakness, numbness or tingling in the extremities. Objective Measurements?? Height: 160 cm (07/07/23) Height: 160 cm (07/07/23) Weight: 76.5 kg (07/07/23) Dry Weight: 76.5 kg (07/07/23) Body Mass Index:??29.88 kg/m2??High (07/07/23) ? Vital Signs?? Temperature: 97.9 DegF (07/07/23 09:35:00) Temperature: 97.9 DegF (07/07/23:35:00) Temperature Route: Oral (07/07/23 09:35:00) Temperature Route: Oral (07/07/23 09:35:00) Pulse Rate: 65 bpm (07/07/23 13:47:00) Respiratory Rate: 20 br/min (07/07/23 09:35:00) Respiratory Rate: 20 br/min (07/07/23 09:35:00) Systolic Blood Pressure: 132 mm Hg (07/07/23 13:47:00) Diastolic Blood Pressure: 62 mm Hg (07/07/23 13:47:00) Blood pressure sites: Arm, left (07/07/23:35:00) Blood pressure sites: Arm, left (07/07/23:35:00) Mean Arterial Pressure: 86 mm Hg (07/07/23 09:35:00) Mean Arterial Pressure: 86 mm Hg (07/07/23 09:35:00) Pulse Pressure: 68 mm Hg (07/07/23 09:35:00) Pulse Pressure: 68 mm Hg (07/07/23 09:35:00) Oxygen Saturation: 97 % (07/07/23 09:35:00) Oxygen Saturation: 97 % (07/07/23 09:35:00) Liters per Minute: 4 L/min (07/07/23 09:35:00) Liters per Minute: 4 L/min (07/07/23 09:35:00) Mode of Delivery (Oxygen): Nasal cannula (07/07/23 09:35:00) Mode of Delivery (Oxygen): Nasal cannula (07/07/23 09:35:00) Early Warning Score: 2 (07/07/23 13:52:44) ? Intake/Output? No Data Available ?? Precautions No Precautions documented.? Mobility & Ambulation Level Mobility & Ambulation Level?? No qualifying data available. ? Physical Exam General: Alert Mental Status: Oriented to person, place and time. Head: Normocephalic. Neck: Supple Respiratory: Bilateral wheezing.?? Cardiovascular: Heart sounds normal. No thrills. Regular rate and rhythm, no murmurs, rubs or gallops. Gastrointestinal: Abdomen soft, non-tender, non-distended. Normal bowel sounds.?? Neurologic: Cranial nerves II-XII grossly intact. No focal neurological deficits. Sensation intact bilaterally. Skin: No rashes or lesions.?? Musculoskeletal: No cyanosis or clubbing. Assessment/Plan Diagnoses Acute kidney injury ??(N17.9) COPD without exacerbation ??(J44.9) Exertional dyspnea ??(R06.09) Urinary tract infection ??(N39.0) ?? Assessment:??68-year-old gentleman with past medical history of peripheral vascular disease, COPD on 2 L nasal cannula, idiopathic neuropathy, hypertension, SHO on home CPAP who had recent rotator cuff surgery was recently discharged from the hospital after rotator cuff surgery which was complicated postoperatively with acute on chronic respiratory failure requiring oxygen. The patient was transferred to [facility] for further evaluation and treatment of acute renal failure. ? 1.?Acute kidney injury: Patient??baseline creatinine is??0.8 Patient had??CT angiogram??with the??contrast dye exposure Patient presented to [facility] with a creatinine of 2.0 Patient??was started on IV fluids Repeat creatinine??is??0.8 We will avoid nephrotoxic medications We will hold Nephrology team RTANE??has been consulted We will monitor renal function closely ? 2.?History of peripheral vascular disease: Patient denies??claudication We will continue with aspirin, Plavix We will hold Lasix??for now??in view of??acute renal failure ? 3.?Hyperlipidemia: Patient takes Lipitor at home??which we will continue ? 4.?COPD/SHO: Patient??uses oxygen at home?? patient is on??oxygen via??nasal cannula ? 5.?DVT prophylaxis:??Pneumatic compression boots??and early ambulation Diet:??Regular diet CODE STATUS: Full code ? I have discussed the above plan with the patient at bedside who is in agreement. ? Discharge Planning:? Histories Allergies Allergies ?(Active and Proposed Allergies [...] Alcohol Details:??Use: Never. Details:??Use: Never. 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 Substance Abuse Details:??Use: Never. Details:??Use: Never. Tobacco Details:??Use: Never (less than 100 in lifetime). Details:??Former smoker, Type: Cigarettes. ? Psychosocial History ? Family History Father: CAD - Coronary [...] Furosemide (furosemide 20 mg oral tablet)?20?Milligram?1?tablet?By Mouth?Daily Silvia?for 30?Days Metoprolol (metoprolol 25 mg oral tablet, extended release)?50?Milligram?2?tablet?ByMouth?Daily?ORAL, TABLET, EXTENDED RELEASE, 0 Refill(s), Miscellaneous Rx (DAILY DAISY TABLET)?1?tab(s)?By Mouth?Daily Oxycodone (oxyCODONE 5 mg oral tablet)?5?Milligram?1?tablet?By Mouth?2 times a day?as needed?Pain , Moderate Pregabalin (pregabalin 75 mg oral capsule)?1?capsule?75?Milligram?TAKE 1 CAPSULE BY MOUTH EVERY 8 HOURS sarilumab (Kevzara 150 mg/1.14 mL subcutaneous solution)?Subcutaneous Infusion?Every 14 days SulfaSALAZINE (sulfaSALAzine 500 mg oral tablet)?2?tab(s)?1,000?Milligram?By Mouth?2 times a day Valsartan (valsartan 80 mg oral tablet)?80?Milligram?1?tablet?By Mouth?Daily in AM Vitamin E?By Mouth?Daily ? Inpatient Medications Medications (21) Active SCHEDULED: (11) Aspirin 81 mg EC Tablet (aspirin 81 mg oral delayed release tablet) ??81 mg, By Mouth, Daily Atorvastatin 40 mg Tablet (atorvastatin 40 mg oral tablet) ??40 mg, By Mouth, Daily in AM Calcium Citrate 315mg / Vit D 250IU (Calcium Citrate 315 mg + Vitamin D 250IU Tablet) ??630 mg 2 tablet, By Mouth, Daily Clopidogrel 75 mg Tablet (Plavix 75 mg oral tablet) ??75 mg, By Mouth, Daily Duloxetine 30 mg Capsule (Duloxetine) ??30 mg, By Mouth, Daily in AM Furosemide 20 mg Tablet (furosemide 20 mg oral tablet) ??20 mg, By Mouth, Daily in AM Metoprolol 50 mg XL Tablet (metoprolol 50 mg oral tablet, extended release) ??50 mg, By Mouth, Daily NaCl 0.9% Flush 3ml (NaCL 0.9% Flush) ??3 mL, IV Push, Every 8 hours Pantoprazole 20 mg EC Tablet (pantoprazole 20 mg oral delayed release tablet) ??20 mg, By Mouth, Daily Pregabalin 25 mg Capsule (pregabalin 25 mg oral capsule) ??75 mg, By Mouth, 3 times a day SulfaSALAZINE 500 mg Tablet (SulfaSALAZINE Tablet) ??1,000 mg, By Mouth, 2 times a day CONTINUOUS: (1) NaCL 0.9% (1000 mL) Cont IV 1,000 mL (NaCL 0.9% 1,000 mL) ??1,000 mL, IV Infusion, 150 mL/hr PRN: (9) Acetaminophen 325 mg Tablet (Acetaminophen Tablet) ??650 mg, By Mouth, Every 4 hours Albuterol 90mcg/Inhalation Inhaler HFA (albuterol CFC free 90 mcg/inh inhalation aerosol) ??180 mcg2 puffs, Inhalation, Every 4 hours Dextromethorphan-Guaifenesin 20 mg-200 mg/10 mL Liqu UD (Robitussin DM Liquid) ??10 mL, By Mouth, Every 4 hours Docusate Sodium 100 mg Capsule (Docusate Sodium Capsule) ??100 mg 1 capsule, By Mouth, 2 times a day Melatonin 3 mg Tablet (Melatonin Tablet) ??3 mg, By Mouth, Daily at bedtime NaCl 0.9% Flush 3ml (NaCL 0.9% Flush) ??3 mL, IV Push, Every 8 hours Polyethylene Glycol 17 Gm Powder (MiraLax Powder) ??17 Gm 1 pack/packet, By Mouth, Daily Senna Tablet ??8.6 mg 1 tablet, By Mouth, 2 times a day Simethicone 80 mg Chewable Tablet (Simethicone Tablet) ??80 mg, Chew, 3 times a day ? Results Recent Labs BLOOD COUNT & DIFF WBC 9.2 k/mm3 ()?? 07/07/2023 11:57 RBC 3.28 m/mm3 (Low)?? 07/07/2023 11:57 Hgb 10.3 Gm/dL (Low)?? 07/07/2023 11:57 Hct 33.8 % (Low)?? 07/07/2023 11:57 MCV 103.0 femtoliters (High)?? 07/07/2023 11:57 MCH 31.4 pg ()?? 07/07/2023 11:57 MCHC 30.5 g/dL (Low)?? 07/07/2023 11:57 Platelet Count 330 k/mm3 ()?? 07/07/2023 11:57 RDW-SD 46.7 femtoliters ()?? 07/07/2023 11:57 MPV 11.3 femtoliters ()?? 07/07/2023 11:57 Nucleated RBC (Automated) 0.0 #/100 WBC'S ()?? 07/07/2023 11:57 Abs. NRBC 0.0 k/mm3 ()?? 07/07/2023 11:57 Abs. Neut 7.7 k/mm3 (High)?? 07/06/2023 16:37 Abs. Lymph 1.8 k/mm3 ()?? 07/06/2023 16:37 Abs. [place] 1.3 k/mm3 (High)?? 07/06/2023 16:37 Abs. Eo 0.2 k/mm3 ()?? 07/06/2023 16:37 Abs. Baso 0.0 k/mm3 ()?? 07/06/2023 16:37 Neut % 70.0 % ()?? 07/06/2023 16:37 Lymph % 16.2 % ()?? 07/06/2023 16:37 [place] % 11.4 % (High)?? 07/06/2023 16:37 Eos % 1.5 % ()?? 07/06/2023 16:37 Baso % 0.4 % ()?? 07/06/2023 16:37 Imm Gran 0.5 % ()?? 07/06/2023 16:37 Abs. Imm Gran 0.1 k/mm3 ()?? 07/06/2023 16:37 ?? CARDIAC Nt-Probnp 454 pg/mL (High)?? 07/06/2023 17:04 High Sensitivity Troponin (HSTnT) 19 ng/L (High)?? 07/06/2023 19:00 ?? CHEM GENERAL Sodium 139 mmol/L ()?? 07/07/2023 11:59 Potassium 4.2 mmol/L ()?? 07/07/2023 11:59 Chloride 97 mmol/L (Low)?? 07/07/2023 11:59 Bicarbonate Level 29 mmol/L ()?? 07/07/2023 11:59 Anion Gap 13 ()?? 07/07/2023 11:59 Glucose Level 100 mg/dL (High)?? 07/06/2023 16:37 BUN 28 mg/dL (High)?? 07/07/2023 11:59 Creatinine-Blood 0.8 mg/dL ()?? 07/07/2023 11:59 Estimated GFR Creatinine 80 ML/MIN/1.73 M2 ()?? 07/07/2023 11:59 Calcium 9.7 mg/dL ()?? 07/06/2023 16:37 Magnesium 2.2 mg/dL ()?? 07/07/2023 11:59 Protein, Total 6.7 Gm/dL ()?? 07/06/2023 16:37 Albumin 4.2 Gm/dL ()?? 07/06/2023 16:37 AG Ratio 1.7 ()?? 07/06/2023 16:37 Alkaline Phosphatase 100 units/L ()?? 07/06/2023 16:37 AST (SGOT) 15 units/L ()?? 07/06/2023 16:37 ALT (SGPT) 11 units/L ()?? 07/06/2023 16:37 Bilirubin, Total 0.2 mg/dL ()?? 07/06/2023 16:37 Lactate 1.9 mmol/L ()?? 07/06/2023 18:00 ?? COAG D-Dimer 2.72 mg/L FEU (High)?? 07/06/2023 16:37 ?? ENDOCRINE/TUMOR MARKER TSH 2.34 uIU/mL ()?? 07/06/2023 17:04 ?? HEME OTHER Hold Blue Top SPECIMEN DISCARDED AFTER 4 HOURS. ()?? 07/06/2023 16:37 ?? UA/URINALYSIS Appear/Color, Urine LIGHT YELLOW ()?? 07/07/2023 12:00 Specific [place], Urine 1.016 ()?? 07/07/2023 12:00 pH, Urine 5.0 ()?? 07/07/2023 12:00 Albumin, Urine TRACE (Abnormal)?? 07/07/2023 12:00 Glucose, Urine NEGATIVE ()?? 07/07/2023 12:00 Ketones, Urine TRACE (Abnormal)?? 07/07/2023 12:00 Bilirubin, Urine NEGATIVE ()?? 07/07/2023 12:00 Hemoglobin, Urine NEGATIVE ()?? 07/07/2023 12:00 Nitrite, Urine NEGATIVE ()?? 07/07/2023 12:00 Leukocyte, Urine 1+ (Abnormal)?? 07/07/2023 12:00 Urobilinogen NORMAL mg/dL ()?? 07/07/2023 12:00 WBC's, Urine 8 /HPF (High)?? 07/07/2023 12:00 RBC's, Urine 1 /HPF ()?? 07/07/2023 12:00 Bacteria SLIGHT HPF (Abnormal)?? 07/07/2023 12:00 Squamous Epith 2 /HPF ()?? 07/07/2023 12:00 Transitional Epith <1 /HPF ()?? 07/06/2023 17:08 Hyaline Cast 1 LPF ()?? 07/07/2023 12:00 Mucus SLIGHT /LPF ()?? 07/06/2023 17:08 Hold Urine Culture Testing available 48 hours from time of collection. ()?? 07/06/2023 17:08 ?? URINE OTHER Creatinine, Urine Random 60.9 mg/dL ()?? 07/07/2023 12:00 Sodium, Urine Random 24 mmol/L ()?? 07/07/2023 12:00 Chloride, Urine Random 35 mmol/L ()?? 07/07/2023 12:00 Urea Nitrogen, Urine Random 563.1 mg/dL ()?? 07/07/2023 12:00 Osmolality, Urine Random 365 mOsm/kg ()?? 07/07/2023 12:00 Protein, Total Urine Random 14 mg/dL ()?? 07/07/2023 12:00 TP/Cr Ratio 0.23 (High)?? 07/07/2023 12:00 Creatinine, Urine 60.9 mg/dL ()?? 07/07/2023 12:00 Malb/Creat Ratio 38.1 mg/Gm (High)?? 07/07/2023 12:00 Urine Creat For Micro Alb 60.9 mg/dL ()?? 07/07/2023 12:00 Micro-Albumin 23.0 mg/L (High)?? 07/07/2023 12:00 Est Creatinine Clearance 57.20 mL/min ()?? 07/07/2023 13:09 ?? VIROLOGY COVID-19 by RT-PCR NEGATIVE ()?? 07/06/2023 17:18 ? EKG study * Event Display: EKG Authored Date: * Event Display: ECG 12-Lead Authored Date: Please click on pdf link to open report * Event Display: ECG 12-Lead Authored Date: Ventricular Rate: 77 BPM Atrial Rate: 77 BPM P-R Interval: 190 ms QRS Duration: 82 ms Q-T Interval: 410 ms QTC Calculation(Bazett): 463 ms P Orient: 66 degrees R Orient: 15 degrees T Orient: 19 degrees Sinus rhythm with marked sinus arrhythmia Nonspecific ST and T wave abnormality Abnormal ECG When compared with ECG of 20-JUN-2023 22:59, Nonspecific T wave abnormality now evident in Lateral leads Confirmed by BHARGAVI DELANEY MD ([id number]) on 07/07/2023 7:44:51 AM [place]: [facility] * Opal Ruff RN: PERFORM, SIGN, VERIFY Event Display: [facility] Authored Date: Patient: ELKE DAVID Age: 68 years Sex: Female : 1955 Associated Diagnoses: None Author: Opal Ruff RN Findings Problem Related to Alteration in Comfort : Alteration in Comfort/new 07/09/2023 12:00 EDT Alteration in Comfort Related to Surgery Goals & Outcomes: Comfort Pt will report acceptable level of comfort & pain control, Pt will state importance of adhering to pain strategy regime, Pt will demonstrate necessary skills to manage pain, Non-verbal indicators will indicate comfort/pain control Interventions Implemented: Comfort Assess pain using appropriate pain scale/tools, Assess alleviating factors & promote them accordingly Goals/Interventions, Comfort Yes Comfort, Problem Start 07/07/2023 9:54 Reviewed plan with, Comfort Patient Patient Progression, Comfort Resolved problem Comfort, Problem Ongoing No Comfort, Problem Resolved 07/09/2023 12:00 . Alteration in Respiratory Function (new) : Alteration in Respiratory Function/new 07/09/2023 12:00 EDT Alteration in Resp Status Related to COPD, Other: SOB Goals & Outcomes, Respiratory Pt will maintain/resume baseline physical assessment, Pt will notdevelop complications r/t mechanical ventilation, Pt will maintain adequate nutritional intake, Pt will maintain/resume normal fluid/electrolyte balance, Pt will not develop complications r/t immobility, Pt will demonstrate proper technique w/self care procedures Interventions, Respiratory Assess for and report S&S of respiratory distress, Position for comfort & optimal oxygenation, Teach/encourage use of incentive spirometer Goals/Interventions, Respiratory Yes Respiratory, Problem Start 07/07/2023 9:53 Reviewed Plan with, Respiratory Patient Patient Progression, Respiratory Patient progressing according to plan . Evaluation Pt is AOshereen, SBA, walked with PT this shift, recommending home with services. Maintaining sats without JAMES on 2 L NC. Regular diet, good intake, bowel regimen given, last BM 07/09. Up to BR to void. Last dose of Ceftriaxone IVPB given prior to d/c. Report given to HARVEY Jerome. Pt transferred to discharge unit. . Discharge Information Case Management Discharge Plan : Case Management Discharge Plan Data 07/09/2023 10:45 EDT Discharge Level of Care at Discharge Homehealth/VNA Discharge VNA/Hospice/Home Care [facility] Discharge Transportation Arranged [facility] [phone] Discharge Arranged Transport Date/Time 07/09/2023 13:00 Mode of Transportation Arranged Chair Van Name of Agency #1 [facility] Service Categories #1 Home health aide, Occupational Therapy, Physical Therapy, Shelter Service Comments #1 [facility] will contact you to resume services. Please call agency with any questions. Pulmonary Rehab Discharge : Pulmonary Rehab Discharge Status 07/08/2023 22:32 EDT CPAP/BiPAP Mask Type Pillows CPAP/BiPAP Mask Size Small Rehabilitation Discharge : Rehab Discharge Index 07/09/2023 6:33 EDT Comments on treatment indicated 68 F s/p R shoulder surgery on 06/[address] Newtonadmitted 2' ARF. NWB L UE c sling. Skilled PT for ambulation, transfers, strength, balance, safety.Rec home c services Distance pt will ambulate > 100 feet c LRAD Full chart review completed Yes Other findings see comment Plan of care PT Gait training, Transfer training, Therapeutic exercise, Functional Activities, Balance training, Neuromuscular education * Opal Ruff RN: PERFORM, SIGN, VERIFY Event Display: Progress Note Hospital Authored Date: Patient: ELKE DAVID Age: 68 years Sex: Female : 1955 Associated Diagnoses: None Author: Opal Ruff RN Findings Problem Related to Alteration in Comfort : Alteration in Comfort/new 07/08/2023 18:00 EDT Alteration in Comfort Related to Surgery Goals & Outcomes: Comfort Pt will report acceptable level of comfort & pain control, Pt will state importance of adhering to pain strategy regime, Pt will demonstrate necessary skills to manage pain, Non-verbal indicators will indicate comfort/pain control Interventions Implemented: Comfort Assess pain using appropriate pain scale/tools, Assess alleviating factors & promote them accordingly BH Goals/Interventions, Comfort Yes Comfort, Problem Start 07/07/2023 9:54 Reviewed plan with, Comfort Patient Patient Progression, Comfort Pt progressing according to plan Comfort, Problem Ongoing Yes . Alteration in Respiratory Function (new) : Alteration in Respiratory Function/new 07/08/2023 18:00 EDT Alteration in Resp Status Related to COPD, Other: SOB Goals & Outcomes, Respiratory Pt will maintain/resume baseline physical assessment, Pt will notdevelop complications r/t mechanical ventilation, Pt will maintain adequate nutritional intake, Pt will maintain/resume normal fluid/electrolyte balance, Pt will not develop complications r/t immobility, Pt will demonstrate proper technique w/self care procedures Interventions, Respiratory Assess for and report S&S of respiratory distress, Position for comfort & optimal oxygenation Goals/Interventions, Respiratory Yes Respiratory, Problem Start 07/07/2023 9:53 Reviewed Plan with, Respiratory Patient Patient Progression, Respiratory Patient progressing according to plan . Evaluation Pt is AOx4, SBA, calling appropriately for assistance. Lungs CTA, continues on 3 L NC. Regular diet, fair intake, last BM 07/08, reports continued feelings of constipation despite BM, miralax and colace PRN given. Up to BR to void. Lyrica continued for peripheral neuropathy otherwise denies pain. L 22G PIV placed this shift, Ceftriaxone Q24 hours initiated. Plan for BLE US, pt tolerating intermittent SCD's. . * Avila ULRICH, Leandro Su: PERFORM Event Display: Progress Note Hospital Authored Date: [id number] Patient: ??ELKE DAVID ? Age:??68 Years?Sex:??Female?:??1955?? Subjective Patient seen and examined at bedside Afebrile, has soft blood pressure,??saturating??well on 3 to 5 L nasal cannula.?? Large CPAP mask was??felt unsafe??to use last night??due to right upper extremity??in sling, she was??placed on??simple facemask??with supplemental oxygen This morning patient reports that she had??small amount of bleeding from the nose??and sneezing that improved with humidified oxygen. ??Reports??mild improvement in??shortness of breath. ??No chest pain, cough,??abdominal pain, nausea, vomiting.?? Reports??mild dysuria??and chronic??rectal pain dueto hemorrhoids Labs reviewed. ??Serum creatinine??improved back to baseline.?? Stopped IV fluid Awaiting blood and urine cultures. ??Started IV ceftriaxone for UTI Requested PT eval and lower extremity Doppler??to rule out DVT Review of Systems ROS negative except as noted above Objective Vital Signs?? Temperature: 98 DegF (07/08/23 08:03:00) Temperature Route: Oral (07/08/23 08:03:00) Pulse Rate:??54 bpm??Low (07/08/23 10:16:00) Respiratory Rate: 18 br/min (07/08/23 08:03:00) Systolic Blood Pressure: 98 mm Hg (07/08/23 10:16:00) Diastolic Blood Pressure:??44 mm Hg??Low (07/08/23 10:16:00) Blood pressure sites: Arm, left (07/08/23 08:03:00) Mean Arterial Pressure: 62 mm Hg (07/08/23 08:03:00) Pulse Pressure: 54 mm Hg (07/08/23 08:03:00) Oxygen Saturation:??93 %??Low (07/08/23 08:03:00) Liters per Minute: 5 L/min (07/08/23 08:03:00) Mode of Delivery (Oxygen): Nasal cannula (07/08/23 08:03:00) Early Warning Score: 3 (07/08/23 10:17:49) ? Intake/Output? 07/06 23:15 07/08 07:00 07/07 07:00 07/06 07:00 07/05 07:00 ?? 07/08 13:11 07/08 13:11 07/08 06:59 07/07 06:59 07/06 06:59 Intake ?720 ?120 ?600 ?0 ?0 Output ?0 ?0 ?0 ?0 ?0 Net Total ?720 ?120 ?600 ?0 ?0 ? Urine Count ?3 ?1 ?2 ?0 ?0 ? Physical Exam ?General:??No apparent distress, lying in bed??, On O2 via NC ?HEENT:?? PERRLA, Moist oral mucous membranes ?Neck:??Supple, no JVD ?Heart:??S1 S2 heard, regular rate and rhythm ?Lungs:??Bilateral air entry fair. ??No wheeze?Abdomen:??Soft, NT, ND, bowel sounds normal ?: ??no CVAT ?Neuro:??No focal neurological deficit,??AAO x 3 ?Psychiatry:?Normal mood and affect ?skin:??warm and dry ?Extremities:??Trace- 1+ pedal??edema( L>R),?? RUE in sling. normal pulses ? _ 72 Hour Antibiotic History Stopped Antibiotics Stop Date/Time Last Administered First Administered Azithromycin??500 mg, 250 mL/hr, IVPB, Once 07/06/2023 18:14 07/06/2023 18:13 07/06/2023 18:13 Ceftriaxone??1 Gm, 100 mL/hr, IVPB, Once 07/06/2023 17:24 07/06/2023 17:24 07/06/2023 17:24 ? Results Recent Labs BLOOD COUNT & DIFF WBC 7.8 k/mm3 ()?? 07/08/2023 00:54 RBC 2.68 m/mm3 (Low)?? 07/08/2023 00:54 Hgb 8.7 Gm/dL (Low)?? 07/08/2023 00:54 Hct 28.3 % (Low)?? 07/08/2023 00:54 MCV 105.6 femtoliters (High)?? 07/08/2023 00:54 MCH 32.5 pg ()?? 07/08/2023 00:54 MCHC 30.7 g/dL (Low)?? 07/08/2023 00:54 Platelet Count 266 k/mm3 ()?? 07/08/2023 00:54 RDW-SD 48.2 femtoliters (High)?? 07/08/2023 00:54 MPV 10.7 femtoliters ()?? 07/08/2023 00:54 Nucleated RBC (Automated) 0.0 #/100 WBC'S ()?? 07/08/2023 00:54 Abs. NRBC 0.0 k/mm3 ()?? 07/08/2023 00:54 Abs. Neut 4.5 k/mm3 ()?? 07/08/2023 00:54 Abs. Lymph 1.8 k/mm3 ()?? 07/08/2023 00:54 Abs. [place] 1.1 k/mm3 (High)?? 07/08/2023 00:54 Abs. Eo 0.3 k/mm3 ()?? 07/08/2023 00:54 Abs. Baso 0.0 k/mm3 ()?? 07/08/2023 00:54 Neut % 58.5 % ()?? 07/08/2023 00:54 Lymph % 23.6 % ()?? 07/08/2023 00:54 [place] % 13.8 % (High)?? 07/08/2023 00:54 Eos % 3.4 % ()?? 07/08/2023 00:54 Baso % 0.4 % ()?? 07/08/2023 00:54 Imm Gran 0.3 % ()?? 07/08/2023 00:54 Abs. Imm Gran 0.0 k/mm3 ()?? 07/08/2023 00:54 ?? CHEM GENERAL Sodium 139 mmol/L ()?? 07/08/2023 00:54 Potassium 4.0 mmol/L ()?? 07/08/2023 00:54 Chloride 100 mmol/L ()?? 07/08/2023 00:54 Bicarbonate Level 27 mmol/L ()?? 07/08/2023 00:54 Anion Gap 12 ()?? 07/08/2023 00:54 BUN 18 mg/dL ()?? 07/08/2023 00:54 Creatinine-Blood 0.7 mg/dL ()?? 07/08/2023 00:54 Estimated GFR Creatinine 92 ML/MIN/1.73 M2 ()?? 07/08/2023 00:54 Magnesium 2.2 mg/dL ()?? 07/07/2023 11:59 ?? UA/URINALYSIS Appear/Color, Urine LIGHT YELLOW ()?? 07/07/2023 12:00 Specific [place], Urine 1.016 ()?? 07/07/2023 12:00 pH, Urine 5.0 ()?? 07/07/2023 12:00 Albumin, Urine TRACE (Abnormal)?? 07/07/2023 12:00 Glucose, Urine NEGATIVE ()?? 07/07/2023 12:00 Ketones, Urine TRACE (Abnormal)?? 07/07/2023 12:00 Bilirubin, Urine NEGATIVE ()?? 07/07/2023 12:00 Hemoglobin, Urine NEGATIVE ()?? 07/07/2023 12:00 Nitrite, Urine NEGATIVE ()?? 07/07/2023 12:00 Leukocyte, Urine 1+ (Abnormal)?? 07/07/2023 12:00 Urobilinogen NORMAL mg/dL ()?? 07/07/2023 12:00 WBC's, Urine 8 /HPF (High)?? 07/07/2023 12:00 RBC's, Urine 1 /HPF ()?? 07/07/2023 12:00 Bacteria SLIGHT HPF (Abnormal)?? 07/07/2023 12:00 Squamous Epith 2 /HPF ()?? 07/07/2023 12:00 Hyaline Cast 1 LPF ()?? 07/07/2023 12:00 ?? URINE OTHER Eos, Urine 0.0 % ()?? 07/07/2023 12:00 Creatinine, Urine Random 60.9 mg/dL ()?? 07/07/2023 12:00 Sodium, Urine Random 24 mmol/L ()?? 07/07/2023 12:00 Chloride, Urine Random 35 mmol/L ()?? 07/07/2023 12:00 Urea Nitrogen, Urine Random 563.1 mg/dL ()?? 07/07/2023 12:00 Osmolality, Urine Random 365 mOsm/kg ()?? 07/07/2023 12:00 Protein, Total Urine Random 14 mg/dL ()?? 07/07/2023 12:00 TP/Cr Ratio 0.23 (High)?? 07/07/2023 12:00 Creatinine, Urine 60.9 mg/dL ()?? 07/07/2023 12:00 Malb/Creat Ratio 38.1 mg/Gm (High)?? 07/07/2023 12:00 Urine Creat For Micro Alb 60.9 mg/dL ()?? 07/07/2023 12:00 Micro-Albumin 23.0 mg/L (High)?? 07/07/2023 12:00 Est Creatinine Clearance 65.37 mL/min ()?? 07/08/2023 01:51 ?? VIROLOGY COVID-19 PCR Specimen Source NASAL ()?? 07/08/2023 06:00 COVID-19 PCR Result NEGATIVE ()?? 07/08/2023 06:00 ? Microbiology ?? COVID-19 (Novel Coronavirus), Rapid PCR?? Completed?? Source: Nasal Body Site: Nose Collected Dt/Tm: 07/06/2023 15:20 Last Updated Dt/Tm: 07/06/2023 18:46 COVID-19 (2019 Novel Coronavirus) PCR?? Completed?? Source: Nasal Body Site: Nose Collected Dt/Tm: 07/08/2023 05:24 Last Updated Dt/Tm: 07/08/2023 11:03 ? Assessment/Plan ?? 68-year-old??F with past medical history of HTN, peripheral vascular disease, COPD on 2 L nasal cannula( started recently), SHO on home CPAP, idiopathic neuropathy,??Unilateral renal A stenosis, Diastolic HF, RA, recently discharged from the hospital after rotator cuff surgery which was complicated postoperatively with acute on chronic respiratory failure requiring Home oxygen. Now presented to??ED with worsening exertional dyspnea she can not even walk across rooms in her house without becoming severely short of breath. ??She also reports increased bilateral lower extremity edema, worse on the left with pain. Noted to have ROCK and elevated D dimer.? Worsening Dyspnea H/O COPD h/o SHO CXR showed Increasing bibasilar opacity which could represent worsening pneumonia and/or developingeffusions with atelectasis. Had elevated D dimer. CTA chest neg for PE. Showed No acute pulmonary abnormality and possible findings from recent pneumonia Received IV CTX and Azithromycin in ED. As she has no fever, leukocytosis or typical symptoms of pneumonia. Monitoring off Abx for pneumonia Wean off supplemental O2 as tolerated.??Home O2 was 2 lpm cont CPAP at HS cont Trelegy and albuterol. ?Acute kidney injury: Patient??baseline creatinine is??0.8, presented with Cr of 2 Likely prereenal ROCK but also got IV contrast on admission. Renal consult noted. Cr back to baseline with IVF Stop IVF Hold Lasix for now Monitor renal function ?? UTI: Pt c/o dysuria. UA shows pyuria Started empiric IV CTX f/u urine cx, Blood cx from ED ?? Lower ext edema: chronic diastolic heart failure Doppler to r/o DVT resume Lasix on discharge. held now due to?? 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 Right rotator cuff surgery 06/15?? - NWB RUE, no shoulder ROM. May move elbow/wrist/fingers as tolerated.?? - Pillow behind elbow at all times to prevent shoulder hyperextension - Pain control,??Tylenol Oxycodone as needed and??pregabalin 75 mg 3 times daily.?f/u with Orthoas outpt ?? RA: cont?sulfasalazine, resume Sarilumab on discharge ?DVT prophylaxis:??Pneumatic compression boots??and early ambulation Diet:??Regular diet CODE STATUS: Full code ?PT eval for dispo Consult note * Fransico ULRICH, Vikram P: MODIFY Event Display: Consultation Note Authored Date: CONSULTATION DATE: 07/07/2023 NEPHROLOGY CONSULTATION PRIMARY BLOW MOULDING MACHINE OPERATOR: Vikram Bateman M.D. HISTORY OF PRESENT ILLNESS: Elke is a 68-year-old patient of mine who has history of unilateralrenal artery stenosis among multiple other medical issues including peripheral arterial disease, hypertension as well as sleep apnea, on home CPAP, who recently had a right rotator cuff surgery. It was complicated by postoperative acute on chronic hypoxic respiratory failure. She was discharged home about a week ago. She presents to the hospital with worsening exertional dyspnea. She was not evenable to ambulate in her house. She had some substernal chest pressure with some lower extremity edema. She did not have any nausea, vomiting, diarrhea, fever. She has been taking diuretics and angiotensin receptor annalise at home. Her creatinine at presentation was 2 from her baseline of 0.9. She also received intravenous contrast. She is admitted for further management. Nephrology has been consulted to assist in her clinical care during her current hospital stay. PAST MEDICAL HISTORY: Renal artery stenosis, peripheral arterial disease, COPD, neuropathy, hypertension, sleep apnea, respiratory failure, right rotator cuff surgery. MEDICATIONS: All her home medications and current inpatient medications were reviewed. ALLERGIES: Reviewed. FAMILY HISTORY: There is no family history of any ESRD or renal transplantation. SOCIAL HISTORY: She lives at home. She is not a smoker. She has no history of drug use. REVIEW OF SYSTEMS: All other systems have been reviewed and were negative except as mentioned in the HPI. PHYSICAL EXAMINATION: GENERAL: Elke was alert and awake. VITAL SIGNS: Stable. HEENT: Her head appeared normocephalic. Her oral mucous membranes appeared moist. NECK: Supple. LUNGS: Air entry was reduced at the bases. HEART: Her first and second heart sounds were normal. She was in normal sinus rhythm. ABDOMEN: Soft and nontender. EXTREMITIES: She had trace bipedal edema. Her right upper extremity was in a sling. NEUROLOGIC: She was alert, awake and oriented. LABORATORY DATA: Sodium 133, potassium 3.9, chloride 89, bicarbonate 29, BUN 44, creatinine 2. Urinalysis showing 45 wbc's and 14 hyaline casts. ASSESSMENT AND PLAN: Acute kidney injury. Ekle has acute kidney injury, most likely due to tubular injury. Her urine output is good. There is no reason to suspect any obstructive uropathy. Given her serum creatinine has gone up to 2, we should do a renal ultrasound. She has been taking diuretics and valsartan at home, which has been discontinued. She should be given a liter of normal saline as gentle hydration. Her urine studies are pending. Her diuretics and ARB are put on hold. Hopefully,just with continued supportive care, her serum creatinine should settle to baseline. There is no reason to suspect any glomerulonephritis or interstitial nephritis given current clinical context. Further management is pending evolving data. Thank you for giving us an opportunity to participate in the medical management of this patient. Dictated by: Vikram Bateman M.D. Signing Clinician: Vikram Bateman M.D. Dictated: 07/07/2023 11:39:00 Transcribed: 06:57:59 AM Transcribed by: YANNA DocID: [id number] PRELIMINARY REPORT UNLESS MANUALLY/ELECTRONICALLY SIGNED * Jorge Cho MD: PERFORM, SIGN, VERIFY Event Display: Consultation Note Authored Date: [id number] Patient: ELKE DAVID Age: 68 years Sex: Female : 1955 Associated Diagnoses: None Author: Jorge Cho MD [facility] Inpatient Nephrology Progress Note Interval History ROCK with Cr 2.0 from 0.8 pt s/p IV contrast IVF support urine labs full consult to follow Note * Queenie More RN: PERFORM Event Display: Discharge/Transfer Note Hospital Authored Date: Nursing Discharge Note Entered On: 07/09/2023 13:23 EDT Performed On: 07/09/2023 13:22 EDT by Queenie More RN Nursing Discharge Note 2 Discharge Comments : no changes from reporting RN's report Queenie More RN - 07/09/2023 15:26 EDT Discharge Time : 07/09/2023 15:24 EDT Queenie More RN - 07/09/2023 15:25 EDT Discharge Level of Care at Discharge [...] Specialty Bed or Wound Vac : No Queenie More RN - 07/09/2023 13:22 EDT * Avila ULRICH, Leandro Su: PERFORM Event Display: Discharge/Transfer Note Hospital Authored Date: [id number] Patient: ??ELKE DAVID ? Age:??68 Years?Sex:??Female?:??1955?? 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 72 Hour Antibiotic History Active Antibiotics Calendar Day Last Administered First Administered Ceftriaxone??1 Gm, 100 mL/hr, IVPB, Every 24 hours ?2 07/09/2023 11:49 07/08/2023 15:23 ? Stopped Antibiotics Stop Date/Time Last Administered First Administered Azithromycin??500 mg, 250 mL/hr, IVPB, Once 07/06/2023 18:14 07/06/2023 18:13 07/06/2023 18:13 Ceftriaxone??1 Gm, 100 mL/hr, IVPB, Once 07/06/2023 17:24 07/06/2023 17:24 07/06/2023 17:24 ? Vaccinations and Immunoprophylaxis influenza virus vaccine, inactivated: 0.5 mL (08/07/15 08:26:00) pneumococcal 23-valent vaccine: 0.5 mL (08/07/15 08:26:00) ? Durable Medical Equipment Current home treatments: Oxygen therapy (07/09/23) On Admit VNA/Hospice/Home Care: Melodie Kelley MA [phone] (07/08/23) On Admit Medical Equip Companies: [address] Mike Maxwell [place] [id number] (07/08/23) Discharge recommendations: Home with services (07/09/23) Name of Agency #1: [facility] (07/09/23) Service Categories #1: Home health aide, Occupational Therapy, Physical Therapy, Shelter (07/09/23) Service Comments #1: [facility] will contact you to resume services. ??Please call agency with any questions. (07/09/23) CPAP/BiPAP Mask Type: Pillows (07/08/23) CPAP/BiPAP Mask Size: Small (07/08/23) Ambulatory devices needed: None (07/09/23) ? Medications Started Docusate-Senna Miralax Medications Discontinued Valsartan 80mg qd Doses Changed Lasix 20mg Q Mon, Wed, Fri Allergies Allergies ?(Active and Proposed Allergies Only) celecoxib? (Severity: Unknown severity, Onset: 06/12/2023) ?Reactions: gi upset Levaquin? (Severity: Unknown severity, Onset: Unknown) ?Reactions: itchy benazepril? (Severity: Unknown severity, Onset: Unknown) ?Reactions: cough ? [facility] f/u f/u BP and adjust meds monitor Vol status, BMP closely and adjust diuretics Objective Assessment and Plan 68-year-old??F with past medical history of HTN, peripheral vascular disease, COPD on 2 L nasal cannula( started recently), SHO on home CPAP, idiopathic neuropathy,??Unilateral renal A stenosis, Diastolic HF, RA, recently discharged from the hospital after rotator cuff surgery which was complicated postoperatively with acute on chronic respiratory failure requiring Home oxygen. Now presented to??ED with worsening exertional dyspnea she can not even walk across rooms in her house without becoming severely short of breath. ??She also reports increased bilateral lower extremity edema, worse on the left with pain. Noted to have ROCK and elevated D dimer.?Dyspnea H/O COPD h/o SHO Acute on chronic Hypoxia CXR showed Increasing bibasilar opacity which could represent worsening pneumonia and/or developingeffusions with atelectasis. Had elevated D dimer. CTA chest neg for PE. Showed No acute pulmonary abnormality and possible findings from recent pneumonia Received IV CTX and Azithromycin in ED. As she has no fever, leukocytosis or typical symptoms of pneumonia, stopped Abx for pneumonia ( Finished 3 days of CTX for UTI) Unlikely COPD or CHF exacerbation. Her symptoms improved as ROCK resolved Currently saturating well on 2-3 L NC ( Home O2) cont CPAP at HS cont Trelegy and albuterol. ?Acute kidney injury: Patient??baseline creatinine is??0.8, presented with Cr of 2 Likely prerenal ROCK but also got IV contrast on admission. Renal consult noted. Cr back to baseline with IVF Stopped IVF, resumed Lasix at 20mg MWF on discharge ??F/U with PCP to monitor renal function, Vol status closely and adjust diuretics as outpt ?? UTI: Pt c/o dysuria. UA shows pyuria. Urine cx showed mixed jasmin. Treated with 3 doses of??epiric IV CTX ?Blood cx neg ?? 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 Right rotator cuff surgery 06/15?? - NWB RUE, no shoulder ROM. May move elbow/wrist/fingers as tolerated.?? - Pain control,??Tylenol Oxycodone as needed, Duloxetine??and??pregabalin?? .?f/u with Ortho as outpt ?? RA: cont?sulfasalazine,?? Sarilumab??Q 2 weeks ?PT eval rec Home with services ? Vital Signs?? Temperature: 97.5 DegF (07/09/23 08:21:00) Temperature Route: Oral (07/09/23 08:21:00) Pulse Rate: 70 bpm (07/09/23 08:27:00) Respiratory Rate: 16 br/min (07/09/23 08:21:00) Systolic Blood Pressure: 135 mm Hg (07/09/23 08:27:00) Diastolic Blood Pressure: 57 mm Hg (07/09/23 08:27:00) Blood pressure sites: Arm, left (07/09/23 08:21:00) Mean Arterial Pressure: 84 mm Hg (07/09/23 08:21:00) Pulse Pressure: 81 mm Hg (07/09/23 08:21:00) Oxygen Saturation: 98 % (07/09/23 08:21:00) Liters per Minute: 3 L/min (07/09/23 08:21:00) Mode of Delivery (Oxygen): Nasal cannula (07/09/23 08:21:00) Early Warning Score: 2 (07/09/23 12:21:28) ? . Physical Exam ?General:??No apparent distress, lying in bed??, On O2 via NC ?Neck:??Supple, no JVD ?Heart:??S1 S2 heard, regular rate and rhythm ?Lungs:??Bilateral air entry fair. ??No wheeze??/ crackles ?Abdomen:??Soft, NT, ND, bowel sounds normal ?: ??no CVAT ?Neuro:??No focal neurological deficit,??AAO x 3 ?Extremities:??Trace pedal??edema( L>R),?? RUE in sling. normal pulses [facility] Nephrology: Dr. Sue Patient Education Titles Constipation (Adult)?? Furosemide Oral Tablet?? Discharge Instructions for Acute Kidney Injury?? Follow-Up Appointments Added Follow Up ?Time Frame ?Comments Fe León MD?1 to 2 weeks Marilee Newton MD, V?Call to discuss Orthopedic follow up. Post Discharge Care Condition: improved Discharge ?07/09/23 12:22:00 EDT Discharge Prescriptions ?ePrescribed, ??07/09/23 12:22:00 EDT Home Health Face to Face *Denotes mandatory roman ?? *I certify that this patient is under my care and that I or an allowed non- physician working with me had a face to face encounter with the patient on this date:??07/09/2023 12:32 ?? *The encounter with the patient was in whole, or in part, for the following medical condition, which is the primary diagnosis(es) for home health care:??Acute kidney injury (N17.9) COPD without exacerbation (J44.9) Exertional dyspnea (R06.09) Urinary tract infection (N39.0) ? *Select the indications for the discipline/s that are being arranged for this patient. Nursing (select all that apply): [_] None [x_] Medication management (reconciliation, teaching)?? [x] Chronic disease management?? [_] Wound care and treatment?? [x_] Home safety evaluation [_] Administer SQ/IM/IV medications?? [_] Cath care?? [_] Drain care?? [_] Trach or GT care?? Other _ Occupation Therapy (select all that apply): [_] None [x_] ADL Management [_] Fall prevention training [x_] Energy conservation [_] Cognitive training Other _ Physical Therapy (select all that apply): [_] None [_x] Functional mobility training [x_] Home exercise program to strengthen [_] Increase ROM?? [_] Falls prevention training [x] Home maintenance program for chronic disease Other _ Speech Therapy (select all that apply): [_] None [_] Swallow evaluation and training [_] Speech and language training [_] Cognitive training to process, organize, and/or recall information Other _ ?? [x] Home Health Aid ? *Homebound due to (select all that apply): [x_] Inability to leave home without assistance/supervision [_] Inability to ambulate without assistance [_] Pain [_] Decreased strength and endurance [_] Unsteady gait [_] Severe SOB and fatigue [_] Impaired transfers [_] Inability to negotiate stairs [_] Limited weight bearing [_] Mental status change? *Physician Signature: _ - Leandro Jonas MD ?? *By signing this, I certify that I have personally evaluated the patient and agree with the findings and recommendations as documented above. ?? Results Discharge Labs BLOOD COUNT & DIFF WBC 7.8 k/mm3 ()?? 07/08/2023 00:54 RBC 2.68 m/mm3 (Low)?? 07/08/2023 00:54 Hgb 8.7 Gm/dL (Low)?? 07/08/2023 00:54 Hct 28.3 % (Low)?? 07/08/2023 00:54 MCV 105.6 femtoliters (High)?? 07/08/2023 00:54 MCH 32.5 pg ()?? 07/08/2023 00:54 MCHC 30.7 g/dL (Low)?? 07/08/2023 00:54 Platelet Count 266 k/mm3 ()?? 07/08/2023 00:54 RDW-SD 48.2 femtoliters (High)?? 07/08/2023 00:54 MPV 10.7 femtoliters ()?? 07/08/2023 00:54 Nucleated RBC (Automated) 0.0 #/100 WBC'S ()?? 07/08/2023 00:54 Abs. NRBC 0.0 k/mm3 ()?? 07/08/2023 00:54 Abs. Neut 4.5 k/mm3 ()?? 07/08/2023 00:54 Abs. Lymph 1.8 k/mm3 ()?? 07/08/2023 00:54 Abs. Macon 1.1 k/mm3 (High)?? 07/08/2023 00:54 Abs. Eo 0.3 k/mm3 ()?? 07/08/2023 00:54 Abs. Baso 0.0 k/mm3 ()?? 07/08/2023 00:54 Neut % 58.5 % ()?? 07/08/2023 00:54 Lymph % 23.6 % ()?? 07/08/2023 00:54 Macon % 13.8 % (High)?? 07/08/2023 00:54 Eos % 3.4 % ()?? 07/08/2023 00:54 Baso % 0.4 % ()?? 07/08/2023 00:54 Imm Gran 0.3 % ()?? 07/08/2023 00:54 Abs. Imm Gran 0.0 k/mm3 ()?? 07/08/2023 00:54 ?? CARDIAC Nt-Probnp 454 pg/mL (High)?? 07/06/2023 17:04 High Sensitivity Troponin (HSTnT) 19 ng/L (High)?? 07/06/2023 19:00 ?? CHEM GENERAL Sodium 139 mmol/L ()?? 07/08/2023 00:54 Potassium 4.0 mmol/L ()?? 07/08/2023 00:54 Chloride 100 mmol/L ()?? 07/08/2023 00:54 Bicarbonate Level 27 mmol/L ()?? 07/08/2023 00:54 Anion Gap 12 ()?? 07/08/2023 00:54 Glucose Level 100 mg/dL (High)?? 07/06/2023 16:37 BUN 18 mg/dL ()?? 07/08/2023 00:54 Creatinine-Blood 0.7 mg/dL ()?? 07/08/2023 00:54 Estimated GFR Creatinine 92 ML/MIN/1.73 M2 ()?? 07/08/2023 00:54 Calcium 9.7 mg/dL ()?? 07/06/2023 16:37 Magnesium 2.2 mg/dL ()?? 07/07/2023 11:59 Protein, Total 6.7 Gm/dL ()?? 07/06/2023 16:37 Albumin 4.2 Gm/dL ()?? 07/06/2023 16:37 AG Ratio 1.7 ()?? 07/06/2023 16:37 Alkaline Phosphatase 100 units/L ()?? 07/06/2023 16:37 AST (SGOT) 15 units/L ()?? 07/06/2023 16:37 ALT (SGPT) 11 units/L ()?? 07/06/2023 16:37 Bilirubin, Total 0.2 mg/dL ()?? 07/06/2023 16:37 Lactate 1.9 mmol/L ()?? 07/06/2023 18:00 ? COAG D-Dimer 2.72 mg/L FEU (High)?? 07/06/2023 16:37 ? ENDOCRINE/TUMOR MARKER TSH 2.34 uIU/mL ()?? 07/06/2023 17:04 ? HEME OTHER Hold Blue Top SPECIMEN DISCARDED AFTER 4 HOURS. ()?? 07/06/2023 16:37 ? UA/URINALYSIS Appear/Color, Urine LIGHT YELLOW ()?? 07/07/2023 12:00 Specific Franklin, Urine 1.016 ()?? 07/07/2023 12:00 pH, Urine 5.0 ()?? 07/07/2023 12:00 Albumin, Urine TRACE (Abnormal)?? 07/07/2023 12:00 Glucose, Urine NEGATIVE ()?? 07/07/2023 12:00 Ketones, Urine TRACE (Abnormal)?? 07/07/2023 12:00 Bilirubin, Urine NEGATIVE ()?? 07/07/2023 12:00 Hemoglobin, Urine NEGATIVE ()?? 07/07/2023 12:00 Nitrite, Urine NEGATIVE ()?? 07/07/2023 12:00 Leukocyte, Urine 1+ (Abnormal)?? 07/07/2023 12:00 Urobilinogen NORMAL mg/dL ()?? 07/07/2023 12:00 WBC's, Urine 8 /HPF (High)?? 07/07/2023 12:00 RBC's, Urine 1 /HPF ()?? 07/07/2023 12:00 Bacteria SLIGHT HPF (Abnormal)?? 07/07/2023 12:00 Squamous Epith 2 /HPF ()?? 07/07/2023 12:00 Transitional Epith <1 /HPF ()?? 07/06/2023 17:08 Hyaline Cast 1 LPF ()?? 07/07/2023 12:00 Mucus SLIGHT /LPF ()?? 07/06/2023 17:08 Hold Urine Culture Testing available 48 hours from time of collection. ()?? 07/06/2023 17:08 ? URINE OTHER Eos, Urine 0.0 % ()?? 07/07/2023 12:00 Creatinine, Urine Random 60.9 mg/dL ()?? 07/07/2023 12:00 Sodium, Urine Random 24 mmol/L ()?? 07/07/2023 12:00 Chloride, Urine Random 35 mmol/L ()?? 07/07/2023 12:00 Urea Nitrogen, Urine Random 563.1 mg/dL ()?? 07/07/2023 12:00 Osmolality, Urine Random 365 mOsm/kg ()?? 07/07/2023 12:00 Protein, Total Urine Random 14 mg/dL ()?? 07/07/2023 12:00 TP/Cr Ratio 0.23 (High)?? 07/07/2023 12:00 Creatinine, Urine 60.9 mg/dL ()?? 07/07/2023 12:00 Malb/Creat Ratio 38.1 mg/Gm (High)?? 07/07/2023 12:00 Urine Creat For Micro Alb 60.9 mg/dL ()?? 07/07/2023 12:00 Micro-Albumin 23.0 mg/L (High)?? 07/07/2023 12:00 Est Creatinine Clearance 65.37 mL/min ()?? 07/08/2023 01:51 ? VIROLOGY COVID-19 by RT-PCR NEGATIVE ()?? 07/06/2023 17:18 COVID-19 PCR Specimen Source NASAL ()?? 07/08/2023 06:00 COVID-19 PCR Result NEGATIVE ()?? 07/08/2023 06:00 ? Microbiology ?? COVID-19 (Novel Coronavirus), Rapid PCR?? Completed?? Source: Nasal Body Site: Nose Collected Dt/Tm: 07/06/2023 15:20 Last Updated Dt/Tm: 07/06/2023 18:46 COVID-19 (2019 Novel Coronavirus) PCR?? Completed?? Source: Nasal Body Site: Nose Collected Dt/Tm: 07/08/2023 05:24 Last Updated Dt/Tm: 07/08/2023 11:03 ? Imaging(s) ?CT Angio Chest ?? 07/06/2023 21:52??by Bill Ewing MD ?IMPRESSION: ?? No evidence of pulmonary embolism. ?? No acute pulmonary abnormality identified. ?Other Image ?B/L Lower Ext Doppler: IMPRESSION: No evidence of deep venous thrombosis. ? Consults(s) ?Consultation Note ?? 07/07/2023 11:39??by Fransico ULRICH, Vikram Nathan ? 33_ minutes spent on discharge * Gloria Garcia RN: PERFORM, SIGN, VERIFY Event Display: Case Management Discharge Plan Authored Date: [id number] Patient: ELKE DAVID Age: 68 years Sex: Female : 1955 Associated Diagnoses: None Author: Gloria Garcia RN Discharge Plan Case Management Discharge Plan : Case Management Discharge Plan Data 07/09/2023 10:45 EDT Discharge Level of Care at Discharge Homehealth/VNA Discharge VNA/Hospice/Home Care [facility] Discharge Transportation Arranged [facility] [address] [facility] [phone] Discharge Arranged Transport Date/Time 07/09/2023 13:00 Mode of Transportation Arranged [facility] Name of Agency #1 [facility] Service Categories #1 Home health aide, Occupational Therapy, Physical Therapy, Shelter Service Comments #1 [facility] will contact you to resume services. Please call agency with any questions. * Derik GABRIEL, Queenie Curran: PERFORM Event Display: Patient Education/Instruction Authored Date: Inpatient Adult Discharge Instructions [address] [address] Name: ELKE VYAS : 1955 Visit: 07/06/2023 23:15:00 Current Date: 07/09/2023 13:23 Account: [id number] Inpatient Adult Discharge Instructions We would like [...] and their families. Surveys are administered by [employer] ?? If further treatment with your primary care physician or another doctor is recommended, it is important for you to keep the appointment. Call your primary care physician or return to the Emergency Department immediately if your condition worsens, fails to improve, or new symptoms develop. If you need to find a doctor, you can call [facility] for a referral at [phone] or toll free at [phone] or log in to [email or web address] ?? [facility], in keeping with [facility] guidance, no longer requires face [...] a health care fly of your choosing. [employer] is a website that allows you to securely view your medical information including your hospital discharge summary, office visit summaries, medications and follow-up visits. You can also request appointments, renew medications, and request access to your medical information using a health care fly of your choosing, or just ask a question. You can enroll at [email or web address] or register during your next office visit. You have been discharged from [facility], Patient Care Unit: S3. If you have any questions regarding these instructions after you leave, please call us and we will be happy to assist you. [facility] Your Care Team Attending Physician Avila ULRICH, Leandro Su Consulting Providers Vikram Bateman MD Discharging Providers Leandro Gramajo MD Reason for Admission sob, recent discharge after having rotator cuff surgery, seen bu A and sent here for low sats, has non productive cough which is new Your Diagnosis Exertional dyspnea Urinary tract infection Acute kidney injury COPD without exacerbation Tests Performed Below is a partial list of the tests performed during your hospitalization. You may have had other tests and procedures not included in this list. Please discuss all test results with your provider. BUN CBC CBC w/ Differential Complete Urinalysis Comprehensive Metabolic Panel COVID-19 (2019 Novel Coronavirus) PCR COVID-19 (Novel Coronavirus), Rapid PCR Creatinine D-DIMER Electrolytes High??Sensitivity??Troponin T Hold Blue Top Tube Lactate Level Magnesium Level Microalbumin Urine ProBNP Protein/Creatinine Ratio Urine TSH with T4 Reflex (Adults Only) UREA NITROGEN, URINE MG/DL Urinalysis w/hold for Urine Culture Urine Chloride Urine Creatinine URINE EOS Urine Osmolality Urine Sodium CT Angio Chest Doppler Ext Lower Venous Bilat (US) XR Chest 2 Views Frontal and Lat Primary Care Provider Fe León MD Advance Directive Health Care Proxy on File Yes - Health Care Proxy Discharge Vitals Temperature: 98.8 DegF Height: 160 cm Pulse Rate: 72 bpm Weight: 76.5 kg Respiratory Rate: 18 br/min Body Mass Index:??29.88 kg/m2??High Systolic Blood Pressure:??149 mm Hg??High Body surface area: 1.84 Diastolic Blood Pressure: 59 mm Hg ?? Oxygen Saturation: 97 % ?? Studies Pending All tests and labs ordered during this hospital stay have been completed unless listed below. Please discuss all pending results with your provider listed above in these instructions. ?? Add On Lab Order Blood Culture Blood Culture #2 What to do next Instructions From Your Doctor Discharge Orders Condition:??improved You Need to Schedule the Following Appointments Follow Up with??Fe León MD When:??Within 1 to 2 weeks Where: [address] [facility] [facility] [address] [facility] [place] [address]- Follow Up with??Marilee Newton MD, V Why: Call to discuss Orthopedic follow up. Where: ?? Discharge Medications ELKE DAVID :1955 Visit Date:07/06/2023 Medications: Please continue your medications until treatment is completed or stopped by your provider. Medications not listed below should be discontinued. Discuss any questions related to medications with your provider. What How Much When Instructions Next Dose New Docusate-Senna (docusate-senna 50 mg-8.6 mg oral capsule) 2 capsule Oral Daily in PM Pickup at [facility]/pharmacy #[id number] 07/09 tonight New Polyethylene Glycol 3350 (MiraLax oral powder for reconstitution) 17 gram Oral Daily as needed for Constipation dissolve in water or juice ?? Pickup at [facility]/pharmacy #[id number] as needed Changed Furosemide (furosemide 20 mg oral tablet) 1 tab(s) Oral Wednesday, Wednesday and Wednesday Duration: 30 Days 07/12 on Wednesday Unchanged Acetaminophen (acetaminophen 325 mg oral tablet) 2 tab(s) Oral Every 6 hours 07/09 at 7pm Unchanged Albuterol (ProAir HFA 90 mcg/ inh inhalation aerosol with adapter) 2 puff(s) Inhalation 4 times a day as needed for Wheezing/Shortness of Breath Duration: 30 Days as needed Unchanged Aspirin (aspirin 81 mg oral delayed release tablet) 1 tab(s) Oral Daily 07/10 tomorrow morning Unchanged Atorvastatin (atorvastatin 40 mg oral tablet) 1 tab(s) Oral Daily in the morning 07/10 tomorrow morning Unchanged Calcium And Vitamin D Combination (calcium (as carbonate)-vitamin D 500 mg-400 intl unitsoral tablet) Oral Daily ORAL, TABLET, 0 Refill(s), ?? 07/10 tomorrow morning Unchanged Clopidogrel (Plavix 75 mg oral tablet) 1 tab(s) Oral Daily 07/10 tomorrow morning Unchanged Duloxetine (Cymbalta 30 mg oral enteric coated capsule) 1 capsule Oral Daily in the morning ORAL, CAPSULE, DELAYED RELEASE PELLETS, 0 Refill(s), ?? 07/10 tomorrow morning Unchanged fluticasone/ umeclidinium/ vilanterol (Trelegy Ellipta 200 mcg-62.5 mcg-25 mcg/ inh inhalation powder) 1 puff(s) Inhalation Daily Duration: 30 Days at the same time every day ?? 07/10 tomorrow morning Unchanged Metoprolol (metoprolol 25 mg oral tablet, extended release) 2 tab(s) Oral Daily ORAL, TABLET, EXTENDED RELEASE, 0 Refill(s), ?? 07/10 tomorrow morning Unchanged Miscellaneous Rx (DAILY DAISY TABLET) 1 tab(s) Oral Daily 07/10 tomorrow morning Unchanged Oxycodone (oxyCODONE 5 mg oral tablet) 1 tab(s) Oral Twice a day as needed for Pain , Moderate as needed Unchanged Oxygen Unchanged Pregabalin (pregabalin 75 mg oral capsule) 1 capsule TAKE 1 CAPSULE BY MOUTH EVERY 8 HOURS ?? 07/09 at 3pm Unchanged sarilumab (Kevzara 150 mg/ 1.14 mL subcutaneous solution) Subcutaneous Infusion Every 14 days resume home schedule Unchanged SulfaSALAZINE (sulfaSALAzine 500 mg oral tablet) 2 tab(s) Oral Twice a day 07/09 tonight Unchanged Vitamin E Oral Daily 07/10 tomorrow morning Pharmacy Information [facility]/pharmacy #[id number]: [address], [place] [phone] ?? What How Much When Comments Stop Taking Docusate (docusate sodium 100 mg oral capsule) 1 capsule Oral Twice a day Stop Taking Valsartan (valsartan 80 mg oral tablet) 1 tab(s) Oral Daily in the morning Test Results Below is a partial list of the most recent Laboratory test results done prior to this discharge. You may have had other tests and procedures not included in this list. Please discuss all test resultswith your provider. Est Creatinine Clearance - 65.37 mL/min (07/08/2023) BUN (07/08/2023) ???BUN - 18 mg/dL CBC (07/07/2023) ???WBC - 9.2 k/mm3???RBC - 3.28 m/mm3???Hgb - 10.3 Gm/dL???Hct - 33.8 %???MCV - 103.0 femtoliters???MCH - 31.4 pg???MCHC - 30.5 g/dL???Platelet Count - 330 k/mm3???RDW-SD - 46.7 femtoliters???MPV - 11.3 femtoliters???Nucleated RBC (Automated) - 0.0 #/100 WBC'S???Abs. NRBC - 0.0 k/mm3 CBC w/ Differential (07/08/2023) ???WBC - 7.8 k/mm3???RBC - 2.68 m/mm3???Hgb - 8.7 Gm/dL???Hct - 28.3 %???MCV - 105.6 femtoliters???MCH - 32.5 pg???MCHC - 30.7 g/dL???Platelet Count - 266 k/mm3???RDW-SD - 48.2 femtoliters???MPV - 10.7 femtoliters???Nucleated RBC (Automated) - 0.0 #/100 WBC'S???Abs. NRBC - 0.0 k/mm3???Abs. Neut - 4.5 k/mm3???Abs. Lymph - 1.8 k/mm3???Abs. Macon - 1.1 k/mm3???Abs. Eo - 0.3 k/mm3???Abs. Baso - 0.0 k/mm3???Neut % - 58.5 %???Lymph % - 23.6 %???Macon % - 13.8 %???Eos % - 3.4 %???Baso % - 0.4 %???Imm Gran - 0.3 %???Abs. Imm Gran - 0.0 k/mm3 Complete Urinalysis (07/07/2023) ???Appear/Color, Urine - LIGHT YELLOW???Specific Franklin, Urine - 1.016???pH, Urine - 5.0???Albumin, Urine - TRACE???Glucose, Urine - NEGATIVE???Ketones, Urine - TRACE???Bilirubin, Urine - NEGATIVE???Hemoglobin, Urine - NEGATIVE???Nitrite, Urine - NEGATIVE???Leukocyte, Urine - 1+???Urobilinogen - NO RMAL???WBC's, Urine - 8 /HPF???RBC's, Urine - 1 /HPF???Bacteria - SLIGHT???Squamous Epith - 2 /HPF???Hyaline Cast - 1 LPF Comprehensive Metabolic Panel (07/06/2023) ???Sodium - 132 mmol/L???Potassium - 3.9 mmol/L???Chloride - 89 mmol/L???Bicarbonate Level - 29 mmol/L???Anion Gap - 14???Glucose Level - 100 mg/dL???BUN - 44 mg/dL???Creatinine-Blood - 2.0 mg/dL???Estimated GFR Creatinine - 26 ML/MIN/1.73 M2???Calcium - 9.7 mg/dL???Protein, Total - 6.7 Gm/dL???Albu min - 4.2 Gm/dL???AG Ratio - 1.7???Alkaline Phosphatase - 100 units/L???AST (SGOT) - 15 units/L???ALT (SGPT) - 11 units/L???Bilirubin, Total - 0.2 mg/dL COVID-19 (2019 Novel Coronavirus) PCR (07/08/2023) ???COVID-19 PCR Specimen Source - NASAL???COVID-19 PCR Result - NEGATIVE COVID-19 (Novel Coronavirus), Rapid PCR (07/06/2023) ???COVID-19 by RT-PCR - NEGATIVE Creatinine (07/08/2023) ???Creatinine-Blood - 0.7 mg/dL???Estimated GFR Creatinine - 92 ML/MIN/1.73 M2 D-DIMER (07/06/2023) ???D-Dimer - 2.72 mg/L FEU Electrolytes (07/08/2023) ???Sodium - 139 mmol/L???Potassium - 4.0 mmol/L???Chloride - 100 mmol/L???Bicarbonate Level - 27 mmol/L???Anion Gap - 12 High??Sensitivity??Troponin T (07/06/2023) ???High Sensitivity Troponin (HSTnT) - 19 ng/L Hold Blue Top Tube (07/06/2023) ???Hold Blue Top - SPECIMEN DISCARDED AFTER 4 HOURS. Lactate Level (07/06/2023) ???Lactate - 1.9 mmol/L Magnesium Level (07/07/2023) ???Magnesium - 2.2 mg/dL Microalbumin Urine (07/07/2023) ???Malb/Creat Ratio - 38.1 mg/Gm???Urine Creat For Micro Alb - 60.9 mg/dL???Micro-Albumin - 23.0 mg/L ProBNP (07/06/2023) ???Nt-Probnp - 454 pg/mL Protein/Creatinine Ratio Urine (07/07/2023) ???Protein, Total Urine Random - 14 mg/dL???TP/Cr Ratio - 0.23???Creatinine, Urine - 60.9 mg/dL TSH with T4 Reflex (Adults Only) (07/06/2023) ???TSH - 2.34 uIU/mL UREA NITROGEN, URINE MG/DL (07/07/2023) ???Urea Nitrogen, Urine Random - 563.1 mg/dL Urinalysis w/hold for Urine Culture (07/06/2023) ???Appear/Color, Urine - YELLOW???Specific Franklin, Urine - 1.013???pH, Urine - 5.5???Albumin, Urine - 1+???Glucose, Urine - NEGATIVE???Ketones, Urine - NEGATIVE???Bilirubin, Urine - 1+???Hemoglobin,Urine - NEGATIVE???Nitrite, Urine - NEGATIVE???Leukocyte, Urine - 3+???Urobilinogen - NORMAL???WBC's, Urine - 45 /HPF???RBC's, Urine - 1 /HPF???Bacteria - SLIGHT???Squamous Epith - 16 /HPF???Transitional Epith - <1 /HPF? ?Hyaline Cast - 14 LPF? ?Mucus - SLIGHT? ?Hold Urine Culture - Testing available 48 hours from time of collection. Urine Chloride (07/07/2023) ???Chloride, Urine Random - 35 mmol/L Urine Creatinine (07/07/2023) ???Creatinine, Urine Random - 60.9 mg/dL URINE EOS (07/07/2023) ???Eos, Urine - 0.0 % Urine Osmolality (07/07/2023) ???Osmolality, Urine Random - 365 mOsm/kg Urine Sodium (07/07/2023) ???Sodium, Urine Random - 24 mmol/L Allergies (NKA means No Known Allergies) Levaquin??(itchy) [...] Educational Leaflet Providered with your Discharge Instructions. Constipation (Adult)?? Furosemide Oral Tablet?? Discharge Instructions for Acute Kidney Injury?? Valuables and Belongings I fully understand and agree that [facility] accepts no responsibility for [...] patient Date for Pt to Sign Valuables/Belongings: 07/09/23 12:26:00 ?? Other Discharge Information ? Case Management Discharge Plan?? Discharge Plan?? Discharge Agency Information?? Discharge Level of Care at Discharge: Homehealth/VNA Name of Agency #1: [facility] Discharge Transportation Arranged: [facility] [phone] Service Categories #1: Home health aide, Occupational Therapy, Physical Therapy, Shelter Mode of Transportation Arranged: [facility] Service Comments #1: [facility] will contact you to resume services. ??Please call agency with any questions. Discharge Arranged Transport Date/Time: 07/09/23 13:00:00 ?? Discharge VNA/Hospice/Home Care: [facility] ? Pulmonary Rehab Status?? Pulmonary Rehab Discharge Status?? CPAP/BiPAP Mask Type: Pillows CPAP/BiPAP Mask Size: Small Respiratory Rate: 18 br/min ? Common Emergency Awareness Tips IS [...] are strongly encouraged to quit. Please call [facility] at [phone] or [phone] ([phone]) or log in to [email or web address] for referrals to smoking cessation programs. ?? 418 Suicide & Crisis Lifeline is available 10/05 if you or someone you know needs to find a reason to keep living. By calling 368 you'll be connected to a skilled, trained counselor at a crisis center in your area. INPATIENT DISCHARGE INSTRUCTIONS SIGNATURE PAGE ELKE DAVID Location:[facility] Registration Date and Time:07/06/2023 23:15 EDT Primary Care Physician: eF León MD, Attending Physician: Avila ULRICH, Leandro Su, I ELKE DAVID, have received the above patient education materials/instructions and haveverbalized understanding. If ambulance or transport services are being used I further acknowledge being given a choice of service. ?? If you need to contact me, please call me at this number: . Patient/General Doc Name: Patient/General Doc Signature: Relationship to Patient: Witness Name/Signature: Date: * Leandro Gramajo MD R: PERFORM Event Display: Patient Education Leaflets Authored Date: [id number] Constipation (Adult) ?? [id number] Constipation (Adult) Constipation means that you have bowel movements that are less frequent than usual. Stools often become very hard and difficult to pass. Constipation is very common. At some point in life, it affects almost everyone. Since everyone's bowel habits are different, what is constipation to one person may not be to another. Your healthcare provider may do tests to diagnose constipation. It depends on what??they??find when evaluating you. Symptoms of constipation include: ??? Abdominal pain ??? Bloating ??? Vomiting ??? Painful bowel movements ??? Itching, swelling, bleeding, or pain around the anus Causes Constipation can have many causes. These include: ??? Diet low in fiber ??? Too much dairy ??? Not drinking enough liquids ??? Lack of exercise or physical activity (especially true for older adults)??? Changes in lifestyle or daily routine, including , aging, work, and travel ??? Frequent use or misuse of laxatives ??? Ignoring the urge to have a bowel movement or delaying it until later ??? Medicines, such as certain prescription pain medicines, iron supplements, antacids, certain antidepressants, and calcium supplements ??? Diseases like irritable bowel syndrome, bowel obstructions, stroke, diabetes, thyroid disease, Parkinson disease, hemorrhoids, and colon cancer ?? Complications Possible complications of constipation can include: ??? Hemorrhoids ??? Rectal bleeding from hemorrhoids or anal fissures??(skin tears) ??? Hernias ??? Chronic constipation ??? Fecal impaction, a severe form of constipation in which a large amount of hard stool is in your rectum that you can't pass??? Bowel obstruction or perforation ?? Home care All treatment should be done after talking with your healthcare provider. This is especially true if you have another medical problem, are taking prescription medicines, or are an older adult. Treatment most often involves lifestyle changes. You may also need medicines. Your healthcare provider will tell you which will work best for you. Follow the advice below to help avoid this problem in the future. ?? Lifestyle changes These lifestyle changes can help prevent constipation: ??? Diet. Eat a high- fiber diet, with fresh fruit and vegetables, and reduce dairy intake, meats, and processed foods ??? Fluids. It's importantto get enough fluids each day. Drink plenty of water when you eat more fiber. If you are on diet that limits the amount of fluid you can have, talk about this with your healthcare provider. ??? Regular exercise. Check with your healthcare provider first. ?? Medicines Take any medicines as directed. Some laxatives are safe to use only every now and then. Others can be taken on a regular basis. While laxatives don't cause bowel dependence, they are treating the symptoms. So your constipation may return if you don't make other changes. Talk with your healthcare provider or pharmacist if you have questions. Prescription pain medicines can cause constipation. If you are taking this kind of medicine, ask your healthcare provider if you should also take a stool softener. Medicines you may take to treat constipation include: ??? Fiber supplements ??? Stool softeners ???Laxatives ??? Enemas ??? Rectal suppositories ?? Follow-up care Follow up with your healthcare provider if symptoms don't get better in the next few days. You may need to have more tests or see a specialist. ?? Call 911 Call 911 if any of these occur: ??? Trouble breathing ??? Stiff, rigid abdomen that is severely painful to touch ??? Large amount of blood in the stool ??? Confusion ??? Fainting or loss of consciousness ??? Rapid heart rate ??? Chest pain ?? When to seek medical advice Call your healthcare provider right away if any of these occur: ??? Fever of 100.4??F (38??C) or higher, or as directed by your healthcare provider ??? Failure to resume normal bowel movements ??? Pain in your abdomen or back gets worse ??? Nausea or vomiting ??? Swelling in your abdomen ??? Small amount of blood in the stool ??? Black, tarry stool ??? Involuntary weight loss ??? Weakness ?? Last Reviewed Date: 2021 ?? [employer]. All rights reserved. This information is not intended as a substitute for professional medical care. Always follow your healthcare professional's instructions. ?? * Avila ULRICH, Leandro Su: PERFORM Event Display: Patient Education Leaflets Authored Date: [id number] Furosemide Oral Tablet ?? [id number] Furosemide Oral Tablet Brands: Lasix Uses This medicine is used for the following purposes: ??? high blood pressure ??? swelling ?? Instructions This medicine may be taken with or without food. This medicine will work best if you take it at about the same time every day. Keep the medicine at room temperature. Avoid heat and direct light. This medicine will make you urinate more. If you have difficulty passing urine, please tell your doctor. This medicine can make you sensitive to the sun. Use sunscreen or protective clothing when in sun. It is important that you keep taking each dose of this medicine on time even if you are feeling well. If you forget to take a dose on time, take it as soon as you remember. If it is almost time for thenext dose, do not take the missed dose. Return to your normal schedule. Do not take 2 doses at one time. Tell your doctor and pharmacist about all your medicines. Include prescription and eqdj-eni-[id number], vitamins, and herbal medicines. Do not suddenly stop taking this medicine. Check with your doctor before stopping. This medicine may affect your blood sugar levels. If you have diabetes, talk to your doctor before changing the dose of your diabetes medicine. It is very important that you follow your doctor's instructions for all blood tests. ?? Cautions Tell your doctor and pharmacist if you ever had an allergic reaction to a medicine. Some patients taking this medicine have experienced serious side effects. Please speak with your doctor to understand the risks and benefits associated with this medicine. Do not use the medication any more than instructed. This medicine may cause dizziness or fainting, especially after exercising or in hot weather. Be very careful when standing or sitting up quickly. Your ability to stay alert or to react quickly may be impaired by this medicine. Do not drive or operate machinery until you know how this medicine will affect you. Please check with your doctor before drinking alcohol while on this medicine. This medicine passes into breast milk. Ask your doctor before . During , this medicine should be used only when clearly needed. Talk to your doctor about the risks and benefits. Do not start or stop any other medicines without first speaking to your doctor or pharmacist. Do not share this medicine with anyone who has not been prescribed this medicine. ?? Side Effects The following is a list of some common side effects from this medicine. Please speak with your doctor about what you should do if you experience these or other side effects. ??? constipation ??? dizziness ??? dry mouth ??? lack of energy and tiredness ??? headaches ??? high blood sugar ??? low blood pressure ??? red, burning, or itchy skin ??? stomach upset or abdominal pain ??? increased urinary frequency ??? blurring or changes of vision If you have any of the following side effects, you may be getting too much medicine. Please contactyour doctor to let them know about these side effects. ??? confusion ??? drowsiness or sedation ??? fainting ??? numbness or tingling in hands and feet ??? irritability ??? muscle pain or weakness ??? tight or rigid muscles ??? thirst ??? unsteadiness while walking Call your doctor or get medical help right away if you notice any of these more serious side effects: ??? shallow, irregular breathing ??? changes in memory, mood, or thinking ??? ear problems (ringingin the ears, hearing loss) ??? fast or irregular heart beats ??? signs of kidney damage (such as change in urine color or bubbly urine) ??? kidney stones ??? signs of liver damage (such as yellowing of eye or skin, dark urine, or unusual tiredness) ??? seizures ??? light colored stool ??? severe orpersistent vomiting A few people may have an allergic reaction to this medicine. Symptoms can include difficulty breathing, skin rash, itching, swelling, or severe dizziness. If you notice any of these symptoms, seek medical help quickly. ?? Extra Please speak with your doctor, nurse, or pharmacist if you have any questions about this medicine. ?? [email or web address] IMPORTANT NOTE: This document tells you briefly how to take your medicine, but it does not tell youall there is to know about it. Your doctor or pharmacist may give you other documents about your medicine. Please talk to them if you have any questions. Always follow their advice. There is a more complete description of this medicine available in Malagasy. Scan this code on your smartphone or tablet or use the web address below. You can also ask your pharmacist for a printout. If you have any questions, please ask your pharmacist. The display and use of this drug information is subject to Terms of Use. Copyright(c) 2022 [employer]. ?? [employer]. All rights reserved. This information is not intended as a substitute for professional medical care. Always follow your healthcare professional's instructions. ?? * Avila ULRICH, Leandro Su: PERFORM Event Display: Patient Education Leaflets Authored Date: Discharge Instructions for Acute Kidney Injury ?? [id number] Discharge Instructions for Acute Kidney Injury You have been diagnosed with acute kidney injury. This means that you have had a sudden episode of kidney failure or damage that causes your kidneys not to work correctly. When both kidneys are healthy, they help filter out fluid and waste from the blood and body.??Acute kidney injury has many causes. These include urinary blockages, infection, lack of enough blood supply, and medicines that can injure??kidneys. In some cases, acute kidney injury is short-term (temporary). This type lasts several days to a few months. This is because the kidney can repair itself. Acute kidney injury can also result in chronic kidney disease or end stage renal failure. Here are some directions for you to follow as you recover. Home care ??? Follow any directions for eating and drinking given to you by your healthcare provider. o Drink less fluid, if directed by your healthcare provider. o Keep a record of everything you eat and drink. ??? Measure the amount of urine and stool you have each day. ??? Weigh yourself every day, at the same time of day, and in the same kind of clothes. Keep a daily record of your daily weights. ??? Take your temperature every day. Keep a record of the results. ??? Learn to take your own blood pressure (BP). Your healthcare provider can teach you how to correctly measure your BP. Keep a record of your results. Bring the record to your follow-up appointments. Ask your healthcare provider when you should seek emergency medical attention. Your provider will tell you what blood pressure reading is dangerous. ??? Stay away from people who have infections. This includes people with colds, bronchitis, or skin conditions. ??? Practice good personal??hygiene. Wash your hands often. This is especially important if you have a catheter in place when you leave the hospital. Doing so helps keep you safe from infection. ??? Take your medicines exactly as directed. ??? You may need frequent blood and urine tests. These are done to keep track of your kidney function. ?? Follow-up care Follow up with your healthcare provider, or as advised. ?? When to call your healthcare provider Call your??healthcare provider??right away if any of the following occur: ??? Signs of bladder infection, such as urinating more often, burning or pain when you pee, pain above your pubic bone, bloodin your urine, or trouble starting your urine stream ??? Signs of infection around your catheter, such as redness, swelling, warmth, or fluid leaking ??? Rapid weight loss or weight gain, such as 3??pounds or more in 24 hours or 6 pounds or more in 7 days ??? Fever above 100.4?? F ( 38??C ) or as directed by your healthcare provider ??? Chills ??? Muscle aches ??? Night sweats ??? Very little or no urine output ??? Swelling of your hands, legs, or feet ??? Back pain ??? Abdominal (belly) pain ??? Extreme tiredness ?? Last Reviewed Date: 2022 ?? 0754-6312 [employer]. All rights reserved. This information is not intended as a substitute for professional medical care. Always follow your healthcare professional's instructions. ?? Patient Care team information Care Team Personnel Name: Myrtle Lim RN Position: [facility] RN Member Role: Primary Care Nurse Name: Fe León MD Position: [facility] Physician - Primary Care Member Role: PCP Address: Address: [address] [place] [address] Name: Garett Osei RN Position: [facility] RN Member Role: Primary Care Nurse Name: Fe Harp RN Position: [facility] RN Member Role: Primary Care Nurse Name: Johanna Carmen RN Position: [facility] RN Member Role: Primary Care Nurse Name: Tiffany Zaldivar RN Position: [facility] RN Member Role: Primary Care Nurse Name: Huseyin Abrams RN Position: [facility] RN Member Role: Primary Care Nurse Name: Uma Herbert RN Position: [facility] RN Member Role: Primary Care Nurse Name: Marlena Byrne Position: S RN Member Role: Primary Care Nurse Name: Ashley Gallardo RN Position: [facility] RN Member Role: Primary Care Nurse Name: Lorin Vu Position: [facility] AMB Nurse Member Role: Lifetime Consulting Physician Name: Opal Dumont RN Position: [facility] RN Member Role: Primary Care Nurse Name: Jamie Prince RN Position: [facility] RN Member Role: Primary Care Nurse Name: Dorothy Rosales RN Position: [facility] RN Member Role: Primary Care Nurse Name: Yee Melo RN Position: [facility] SN RN Member Role: Primary Care Nurse Name: Tracee Angelo RN Position: [facility] RN Member Role: Primary Care Nurse Name: Edda Ramirez RN Position: [facility] RN Member Role: Primary Care Nurse Name: Neris Sorto RN Position: [facility] RN Member Role: Primary Care Nurse Name: Garth Underwood RN Position: [facility] RN Member Role: Primary Care Nurse Name: Anahi Hall RN Position: [facility] RN Member Role: Primary Care Nurse Name: [facility] Attending Position: [facility] ED Medicine MD Name: Antonio Nieto Position: [facility] ED TA [facility] Name: Lili Castaneda RN Position: [facility] ED RN W/OE and Tasks Member Role: Patient Care Provider Name: Julia Chavira Position: [facility] ED OA Charge Name: Dorothy Desouza RN Position: [facility] ED RN W/OE and Tasks Member Role: Patient Care Provider Care Team Related Persons Name: POLLY DAVILA Name: POLLY OTOOLE Address: home [address] [place] [address] Name: TIFFANY VYAS Address: home [address] [place] [address]
--- OUTSIDE RECORDS SUMMARY | 2023-12-07 10:43 | XMS_ITS | Continuity of Care Document ---
Author Name Unknown Organization [facility] Address [address] [place] [address]- Care Team Providers Care Statistician Applied Name Role Phone Roger ULRICH, Garcia Alvarado Primary Care Physician [phone] [facility] Date(s): 05/02/21 - 06/01/21 [facility] [address] [place] [address]- Attending Physician: Nolan Vincent Admitting Physician: AdmNolan [...] with Flavor Packs oral powder for reconstitution See Instructions, 4 liters By Mouth Once for colonoscopy, # 4,000 mL, 0 Refills, Maintenance, 05/02/21 15:25:00 EDT, [facility]/pharmacy #[id number], Partial fill upon patient request if the prescription is for aschedule II opioid drug., 4 liters By Mouth Once fo... Start Date: 05/02/21 Status: Ordered omeprazole 20 mg oral enteric [...]
--- OUTSIDE RECORDS SUMMARY | 2023-12-07 10:43 | XMS_ITS | Continuity of Care Document ---
Author Name Unknown Organization [facility] Address [address] [place] [address]- Care Team Providers Care Ccnp Name Role Phone Not on Staff, PCP Primary Care Physician Unavail able Encounter [facility] [place] Date(s): 07/09/20 - 08/14/[address] [address]- [facility] Attending Physician: Manjit Mendes Admitting Physician: Manjit Mendes Referring Physician: Manjit Mendes Allergies, Adverse Reactions, Alerts Substance Reaction Severity [...] tablet, 4 Refills, Maintenance, 11/13/19 8:13:00 EST, [facility], 161.3, cm, 06/30/19 13:59:00 EDT, Height, 75, [...] 12/26/19 8:50:00 EDT, Route to Pharmacy Electronically, [facility]/pharmacy #[id number], 161.3, cm, 06/30/19 13:59:00 EDT, [...] 3 Refills, Soft Stop, 12/27/19 11:00:00 EDT, [facility]/pharmacy #[id number], 161.3, cm, 06/30/19 13:59:00 EDT, [...]
--- OUTSIDE RECORDS SUMMARY | 2023-12-07 10:43 | XMS_ITS | Continuity of Care Document ---
Author Name Unknown Organization [facility] Address [address] [place] [address]- Care Team Providers Care Design Technician Name Role Phone Not on Staff, PCP Primary Care Physician Unavail able Encounter [facility] [place] Date(s): 07/02/20 - 08/01/20 [facility] [address] [place] [address]- [facility] Allergies, Adverse Reactions, Alerts Substance Reaction Severity [...] tablet, 4 Refills, Maintenance, 11/13/19 8:13:00 EST, [facility], 161.3, cm, 06/30/19 13:59:00 EDT, Height, 75, [...] 12/26/19 8:50:00 EDT, Route to Pharmacy Electronically, [facility]/pharmacy #[id number], 161.3, cm, 06/30/19 13:59:00 [...] 3 Refills, Soft Stop, 12/27/19 11:00:00 EDT, [facility]/pharmacy #[id number], 161.3, cm, 06/30/19 13:59:00 [...]
--- OUTSIDE RECORDS SUMMARY | 2023-12-07 10:43 | XMS_ITS | Continuity of Care Document ---
Author Name Unknown Organization [facility] Address [address] [place] [address]- Care Team Providers Care Rn Advice Name Role Phone Romelia ULRICH, Fe Dubois Primary Care Physician En[id number] Date(s): 08/12/21 - 09/11/21 [facility] [address] [place] [address]- [place] Allergies, Adverse Reactions, Alerts Substance Reaction [...] mL, 0 Refills, Maintenance, 07/21/21 10:19:00 EDT, [facility]/pharmacy #[id number], Please fill with ANY available gallon [...]
--- OUTSIDE RECORDS SUMMARY | 2023-12-07 10:43 | XMS_ITS | Continuity of Care Document ---
Author Name Unknown Organization [facility] Address [address] [place] [address]- Care Team Providers Care Debt Collection Specialist Name Role Phone Romelia ULRICH, Fe Dubois Primary Care Physician Encounter [id number] Date(s): 11/18/21 - 12/18/21 [facility] [address] [place] [address]- Attending Physician: Nolan Vincent Admitting Physician: AdmNolan aleman Referring Physician: Admtr ArHenry Allergies, Adverse Reactions, Alerts Substance Reaction Severity Status Levaquin Active celecoxib <not entered> Active benazepril cough Active Glutens Active Immunizations Given and Recorded [...] mL, 0 Refills, Maintenance, 07/21/21 10:19:00 EDT, [facility]/pharmacy #[id number], Please fill with ANY available gallon colon [...]
--- OUTSIDE RECORDS SUMMARY | 2023-12-07 10:43 | XMS_ITS | Continuity of Care Document ---
Author Name Unknown Organization [facility] Address [address] [place] [address]- Care Team Providers Care Executive Secretary Name Role Phone Romelia ULRICH, Fe Dubois Primary Care Physician ( [phone] Encounter [facility] [place] Date(s): 08/04/21 - 09/03/21 [facility] [address] [place] [address]- [place] Allergies, Adverse Reactions, Alerts Substance Reaction [...] mL, 0 Refills, Maintenance, 07/21/21 10:19:00 EDT, [facility]/pharmacy #[id number], Please fill with ANY available [...]
--- OUTSIDE RECORDS SUMMARY | 2023-12-07 10:43 | XMS_ITS | Continuity of Care Document ---
Author Name Unknown Organization [facility] Address [address] [place] [address]- Care Team Providers Care Sleep Tech Name Role Phone Romelia ULRICH, Fe Dubois Primary Care Physician Encounter [facility] Date(s): 10/09/21 - 10/09/[address] [address]- Discharge Disposition: A-D/C Home Attending Physician: Quentin Mcgraw MD Admitting Physician: Quentin Mcgraw MD Referring Physician: Not on Staff, Referring [...] mL, 0 Refills, Maintenance, 07/21/21 10:19:00 EDT, [facility]/pharmacy #[id number], Please fill with ANY available gallon colon [...] to oldest [Reference Range]: 1 2 3 Oxygen Saturation [94-100 %] 96 % (10/09/21 8:22 PM) 94 % (10/09/21 2:28 PM) 97 % (10/09/21 2:27 PM) Pulse Rate [55-90 bpm] 80 bpm (10/09/21 8:22 PM) 71 bpm (10/09/21 2:26 PM) Blood Pressure [90-138/55-84 mm Hg] 152/63mm Hg *H* (10/09/21 8:22 PM) 118/78mm Hg (10/09/21 2:26 PM) Respiratory Rate [16-30 br/min] 16 br/min (10/09/21 8:22 PM) 16 br/min (10/09/21 2:26 PM) Temperature [96.8-100.4 DegF] 98.0 DegF (10/09/21 8:22 PM) 97.9 DegF (10/09/21 2:26 PM) Liters per Minute 2 L/min (10/09/21 2:27 PM) Mode of Delivery (Oxygen) Room air (10/09/21 8:22 PM) Room air (10/09/21 2:28 PM) Nasal cannula (10/09/21 2:27 PM) Blood pressure sites Arm, right (10/09/21 2:26 PM) Temperature Route Oral (10/09/21 8:22 PM) Oral (10/09/21 2:26 PM) Social History Social History Type Response Smoking Status Former smoker; Type: Cigarettes entered on: 04/13/16 Sex
--- OUTSIDE RECORDS SUMMARY | 2023-12-07 10:44 | XMS_ITS | Continuity of Care Document ---
Author Name Unknown Organization [facility] Address [address] [place] [address]- Care Team Providers Care Rn Support Services Name Role Phone Romelia ULRICH, Fe Dubois Primary Care Physician [place] [facility] [place] 07/31/21 - 08/30/21 [facility] [address] [place] [address]- [place] Allergies, Adverse Reactions, Alerts Substance Reaction [...] mL, 0 Refills, Maintenance, 07/21/21 10:19:00 EDT, [facility]/pharmacy #[id number], Please fill with ANY available [...]
--- OUTSIDE RECORDS SUMMARY | 2023-12-07 10:44 | XMS_ITS | Continuity of Care Document ---
Author Name Unknown Organization [facility] Address [address] [place] [address]- Care Team Providers Care Geology Instructor Name Role Phone Not on Staff, PCP Primary Care Physician Unavail able [place] [facility] [place] Date(s): 07/22/20 - 07/29/20 [facility] [address] [place] [address]- [facility] Attending Physician: Angelo ULRICH, Tammy Rodríguez Allergies, Adverse Reactions, Alerts Substance Reaction Severity [...] tablet, 4 Refills, Maintenance, 11/13/19 8:13:00 EST, [facility] 668[facility], 161.3, cm, 06/30/19 13:59:00 EDT, Height, 75, [...] 12/26/19 8:50:00 EDT, Route to Pharmacy Electronically, [facility]/pharmacy #[id number], 161.3, cm, 06/30/19 13:59:00 EDT, Height, [...] 3 Refills, Soft Stop, 12/27/19 11:00:00 EDT, [facility]/pharmacy #[id number], 161.3, cm, 06/30/19 13:59:00 EDT, Height, [...] recent to oldest [Reference Range]: 1 Height 161.3 cm (07/22/20 10:23 AM) Weight 72.5 kg (07/22/20 10:23 AM) Pulse Rate [55-90 bpm] 92 bpm *H* (07/22/20 10:23 AM) Body Mass Index [18.5-24.99] 27.87 *H* (07/22/20 10:23 AM) Blood Pressure [90-138/55-84 mm Hg] 145/ 78mm Hg *H* (07/22/20 10:23 AM) Temperature [96.8-100.4 DegF] 96.2 DegF *L* (07/22/20 10:23 AM) Blood pressure sites Arm, left (07/22/20 10:23 AM) Temperature Route Temporal (07/22/20 10:23 AM) Dry Weight 72.5 kg (07/22/20 10:23 AM) Weight Obtained Via Bed scale (07/22/20 10:23 AM) Dry Weight Obtained Via Bed scale (07/22/20 10:23 AM) Social History Social History Type Response Smoking Status Former smoker; Type: Cigarettes entered on: 04/13/16 Sex
--- OUTSIDE RECORDS SUMMARY | 2023-12-07 10:44 | XMS_ITS | Continuity of Care Document ---
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 30 mg= 1 capsule, By Mouth, Daily in AM DAILY DAISY TABLET, 1 tablet, By Mouth, Daily docusate-senna 50 mg-8.6 mg oral capsule, 2 capsule, By Mouth, Daily in PM furosemide 20 mg oral tablet, 20 mg= 1 tablet, By Mouth, Every Wednesday, Wednesday and Wednesday, 2 refills Kevzara 150 mg/1.14 mL subcutaneous solution, Subcutaneous Infusion, Every 14 days metoprolol 25 mg oral tablet, extended release, 50 mg= 2 tablet, By Mouth, Daily MiraLax oral powder for reconstitution, 17 Gm, By Mouth, Daily, PRN oxyCODONE 5 mg oral tablet, 5 mg= 1 tablet, By Mouth, 2 times a day, PRN Oxygen Plavix 75 mg oral tablet, 75 mg= 1 tablet, By Mouth, Daily pregabalin 75 mg oral capsule, 75 mg= 1 capsule ProAir HFA 90 mcg/inh inhalation aerosol with adapter, 180 mcg= 2 puffs, Inhalation, 4 times a day,PRN, 1 refills sulfaSALAzine 500 mg oral tablet, 1000 mg= 2 tablet, By Mouth, 2 times a day Trelegy Ellipta 200 mcg-62.5 mcg-25 mcg/inh inhalation powder, 1 puffs, Inhalation, Daily, 1 refills valsartan 80 mg oral tablet Vitamin E, By Mouth, Daily Allergies Levaquin??(itchy) benazepril??(cough) celecoxib??(gi upset) Social History Alcohol Use: Never. 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 Substance Abuse Use: Never. Tobacco Use: Never (less than 100 in lifetime). Family History CAD - Coronary artery disease: Father. Note * Selam Mcqueen RN: PERFORM Event Display: Discharge/Transfer Note Hospital Authored Date: [id number] Nursing Discharge Note Entered On: 08/09/2023 12:23 EDT Performed On: 08/09/2023 12:22 EDT by Selam Mcqueen RN Nursing Discharge Note 2 Discharge Time : 08/09/2023 12:22 EDT Discharge Level of Care at Discharge : Home/Long-Term/Foster Care Patient Left Unit Via : Wheelchair Patient Accompanied Off Unit with : Other: pt going to discharge lounge for uber home DC Instructions Provided & Signed by Pt : Yes Patient Understands D/C Instructions : Yes Patient Instructions Discharge Signed : Yes Discharge Comments : pt has home 02 tank with her for discharge home. Did Pt have Specialty Bed or Wound Vac : No Selam Mcqueen RN - 08/09/2023 12:22 EDT * Virgil Carey MD: PERFORM Event Display: Discharge/Transfer Note Hospital Authored Date: [id number] Patient: ??ELKE DAVID ? Age:??68 Years?Sex:??Female?:??1955?? Patient Information Discharge Location: B Primary Care Physician: Romelia ULRICH, Fe Dubois Admit Date/Time: 08/08/23 08:07 Discharge Disposition Discharge Disposition: ?? Discharge Diagnosis Asthma (J45.909) Atelectasis (J98.11) Chronic hypoxemic respiratory failure (J96.11) HTN (hypertension) (I10) Lower GI bleed (K92.2) SHO on CPAP (G47.33) Paroxysmal A-fib (I48.0) Peripheral arterial disease (I73.9) Rheumatoid arthritis (M06.9) ?? _ Discharge Medications Acetaminophen (acetaminophen 325 [...] mg/1.14 mL subcutaneous solution)?Subcutaneous Infusion?Every 14 days ? Objective Assessment and Plan Asthma (J45.909):??68-year-old lady with PMH of PVD on Plavix; HFpEF; HTN; RA; GERD; diverticulosisand colonic strictures; recently diagnosed A-fib on Eliquis; presented with concerns for lower GI bleed,??patient was seen by GI no need for colonoscopy as patient has self refused and also??she has been hemodynamically stable??with no further??bleeding. ? Lower GI bleed (K92.2): -Likely diverticular bleed patient reports she has history of??diverticularbleed a few years ago. Currently H&H is stable Initially aspirin and??Eliquis was??held??but then were resumed after??no??further??bleeding??was observed. Patient reports last bleed was at home??she had a small amount of blood per rectum Patient was seen by GI??since the H&H was stable and patient was very is concerned about anesthesia??involved in colonoscopy it was decided against any??procedure. We have resumed??Plavix??and Eliquis as no further bleeding If in the future there is??a drop??in hemoglobin??or??heavy GI bleeding??she will hold anticoagulation and??colonoscopy. ? Paroxysmal A-fib (I48.0): -High risk for stroke therefore we will continue with Plavix and??Eliquiswhich she??takes chronically ? Atelectasis (J98.11): -Incentive spirometry ? Asthma (J45.909): -Currently not in exacerbation, patient is on albuterol inhaler send Trelegy;? Chronic hypoxemic respiratory failure (J96.11): - On baseline 2 L O2 ? SHO on CPAP (G47.33): - Continue home CPAP ? HTN (hypertension) (I10): -Patient is not taking losartan she is on Cardizem CD1 20 mg daily we will continue Peripheral arterial disease (I73.9): -On Plavix ? Rheumatoid arthritis (M06.9): -Currently not in flare. ?? Disposition, home ? Discharge Planning:? Vital Signs?? Temperature: 97.5 DegF (08/09/23 06:53:00) Temperature Route: Oral (08/09/23 06:53:00) Pulse Rate: 79 bpm (08/09/23 08:18:00) Pulse Rate: 79 bpm (08/09/23 08:18:00) Pulse Rate, Lyin bpm (08/08/23 16:24:00) Systolic Blood Pressure, Lyin mm Hg (08/08/23 16:24:00) Diastolic Blood Pressure, Lyin mm Hg (08/08/23 16:24:00) Pulse Rate, Sittin bpm (08/08/23 16:24:00) Systolic Blood Pressure, Sittin mm Hg (08/08/23 16:24:00) Diastolic Blood Pressure, Sittin mm Hg (08/08/23 16:24:00) Pulse Rate, Standin bpm (08/08/23 16:24:00) Systolic Blood Pressure, Standin mm Hg (08/08/23 16:24:00) Diastolic Blood Pressure, Standin mm Hg (08/08/23 16:24:00) Respiratory Rate: 20 br/min (08/09/23 08:22:00) Systolic Blood Pressure:??139 mm Hg??High (08/09/23 08:18:00) Systolic Blood Pressure:??139 mm Hg??High (08/09/23 08:18:00) Diastolic Blood Pressure: 68 mm Hg (08/09/23 08:18:00) Diastolic Blood Pressure: 68 mm Hg (08/09/23 08:18:00) Blood pressure sites: Arm, left (08/09/23 06:53:00) Mean Arterial Pressure: 92 mm Hg (08/09/23 06:53:00) Pulse Pressure: 71 mm Hg (08/09/23 06:53:00) Oxygen Saturation: 98 % (08/09/23 06:53:00) Liters per Minute: 2 L/min (08/08/23 23:29:00) Mode of Delivery (Oxygen): Room air (08/09/23 06:53:00) Early Warning Score: 5 (08/09/23 08:23:19) ? . Physical Exam General: [Alert, in no acute cardiopulmonary distress.] Mental Status: [Oriented to person, place and time. Normal affect.] Head: [Normocephalic.] Eyes: [Pupils are equal, round and reactive to light. Extraocular muscles intact.] Ear, Nose and Throat: [Oropharynx clear, mucous membranes moist. Ears and nose without masses, lesions or deformities. Tympanic membranes clear bilaterally. Trachea midline.] Neck: [Supple, Full range of motion.] Respiratory: [Clear to auscultation and percussion. No wheezing, rales or rhonchi.] Cardiovascular: [Heart sounds normal. No thrills. Regular rate and rhythm, no murmurs, rubs or gallops.] Gastrointestinal: [Abdomen soft, non-tender, non-distended. Normal bowel sounds. No pulsatile mass.No hepatosplenomegaly.] Genitourinary: [No costovertebral angle tenderness.] Neurologic: [Cranial nerves II-XII grossly intact. No Skin: [No rashes or lesions. No petechiae or purpura. No edema.] Musculoskeletal: [No cyanosis or clubbing. No gross deformities. Normal range of motion.] Lymphatics: [Palpation of neck reveals no swelling or tenderness of neck nodes. Palpation of groin reveals no swelling or tenderness of groin nodes.] Psychiatric: [Not anxious fully cooperative following commands.] Pending Results No Pending Results Patient Education Titles When You Have Gastrointestinal (GI) Bleeding?? Follow-Up Appointments Added Follow Up ?Time Frame ?Comments Rivas León MD?1 to 2 weeks Post Discharge Care Discharge ?08/09/23 8:55:00 EDT Home Health Face to Face ^[facility] Results Discharge Labs BLOOD BANK Blood Type O Positive ()?? 08/08/2023 09:14 Antibody Screen Negative ()?? 08/08/2023 09:14 ?? BLOOD COUNT & DIFF WBC 4.5 k/mm3 ()?? 08/09/2023 00:59 RBC 2.80 m/mm3 (Low)?? 08/09/2023 00:59 Hgb 9.4 Gm/dL (Low)?? 08/09/2023 00:59 Hct 29.5 % (Low)?? 08/09/2023 00:59 MCV 105.4 femtoliters (High)?? 08/09/2023 00:59 MCH 33.6 pg ()?? 08/09/2023 00:59 MCHC 31.9 g/dL (Low)?? 08/09/2023 00:59 Platelet Count 145 k/mm3 (Low)?? 08/09/2023 00:59 RDW-SD 62.1 femtoliters (High)?? 08/09/2023 00:59 MPV 11.1 femtoliters ()?? 08/09/2023 00:59 Nucleated RBC (Automated) 0.0 #/100 WBC'S ()?? 08/09/2023 00:59 Abs. NRBC 0.0 k/mm3 ()?? 08/09/2023 00:59 Abs. Neut 1.6 k/mm3 ()?? 08/08/2023 09:17 Abs. Lymph 1.8 k/mm3 ()?? 08/08/2023 09:17 Abs. [place] 0.5 k/mm3 ()?? 08/08/2023 09:17 Abs. Eo 0.1 k/mm3 ()?? 08/08/2023 09:17 Abs. Baso 0.0 k/mm3 ()?? 08/08/2023 09:17 Neut % 39.1 % (Low)?? 08/08/2023 09:17 Lymph % 45.1 % (High)?? 08/08/2023 09:17 [place] % 11.5 % (High)?? 08/08/2023 09:17 Eos % 3.4 % ()?? 08/08/2023 09:17 Baso % 0.7 % ()?? 08/08/2023 09:17 Imm Gran 0.2 % ()?? 08/08/2023 09:17 Abs. Imm Gran 0.0 k/mm3 ()?? 08/08/2023 09:17 ?? CARDIAC High Sensitivity Troponin (HSTnT) 21 ng/L (High)?? 08/08/2023 17:45 ? CHEM GENERAL Sodium 139 mmol/L ()?? 08/09/2023 00:59 Potassium 4.0 mmol/L ()?? 08/09/2023 00:59 Chloride 99 mmol/L ()?? 08/09/2023 00:59 Bicarbonate Level 32 mmol/L (High)?? 08/09/2023 00:59 Anion Gap 8 ()?? 08/09/2023 00:59 Glucose Level 106 mg/dL (High)?? 08/09/2023 00:59 Glucose, POC 92 mg/dL ()?? 08/08/2023 08:19 BUN 21 mg/dL ()?? 08/09/2023 00:59 Creatinine-Blood 0.7 mg/dL ()?? 08/09/2023 00:59 Estimated GFR Creatinine 89 ML/MIN/1.73 M2 ()?? 08/09/2023 00:59 Calcium 8.4 mg/dL (Low)?? 08/09/2023 00:59 Magnesium 1.8 mg/dL ()?? 08/08/2023 09:17 Protein, Total 6.2 Gm/dL ()?? 08/08/2023 09:17 Albumin 4.4 Gm/dL ()?? 08/08/2023 09:17 AG Ratio 2.4 ()?? 08/08/2023 09:17 Alkaline Phosphatase 72 units/L ()?? 08/08/2023 09:17 AST (SGOT) 32 units/L ()?? 08/08/2023 09:17 ALT (SGPT) 24 units/L ()?? 08/08/2023 09:17 Bilirubin, Total 0.4 mg/dL ()?? 08/08/2023 09:17 ? UA/URINALYSIS Appear/Color, Urine YELLOW ()?? 08/08/2023 16:30 Specific [place], Urine 1.025 ()?? 08/08/2023 16:30 pH, Urine 5.5 ()?? 08/08/2023 16:30 Albumin, Urine 1+ (Abnormal)?? 08/08/2023 16:30 Glucose, Urine TRACE (Abnormal)?? 08/08/2023 16:30 Ketones, Urine TRACE (Abnormal)?? 08/08/2023 16:30 Bilirubin, Urine NEGATIVE ()?? 08/08/2023 16:30 Hemoglobin, Urine NEGATIVE ()?? 08/08/2023 16:30 Nitrite, Urine NEGATIVE ()?? 08/08/2023 16:30 Leukocyte, Urine TRACE (Abnormal)?? 08/08/2023 16:30 Urobilinogen NORMAL mg/dL ()?? 08/08/2023 16:30 WBC's, Urine 4 /HPF ()?? 08/08/2023 16:30 RBC's, Urine 2 /HPF ()?? 08/08/2023 16:30 Squamous Epith 5 /HPF ()?? 08/08/2023 16:30 Hold Urine Culture Testing available 48 hours from time of collection. ()?? 08/08/2023 16:30 ? 25minutes spent on discharge * Selam Mcqueen RN: PERFORM Event Display: Patient Education/Instruction Authored Date: [id number] Inpatient Adult Discharge Instructions [address] [address] Name: ELKE VYAS : 1955 Visit: 08/08/2023 08:07:00 Current Date: 08/09/2023 09:48 Account: [id number] Inpatient Adult Discharge Instructions We would like [...] and their families. Surveys are administered by [employer] ?? If further treatment with your primary care physician or another doctor is recommended, it is important for you to keep the appointment. Call your primary care physician or return to the Emergency Department immediately if your condition worsens, fails to improve, or new symptoms develop. If you need to find a doctor, you can call [facility] [employer] for a referral at [phone] or toll free at [phone]TOZQVT ([phone]) or log in to [email or web address].. ?? [facility], in keeping with [facility] guidance, no longer requires face masks for [...] a health care fly of your choosing. [employer] is a website that allows you to securely view your medical information including your hospital discharge summary, office visit summaries, medications and follow-up visits. You can also request appointments, renew medications, and request access to your medical information using a health care fly of your choosing, or just ask a question. You can enroll at [email or web address] or register during your next office visit. You have been discharged from [facility], Patient Care Unit: D3B. If you have any questions regarding these instructions after you leave, please call us and we will be happy to assist you. [facility] Your Care Team Attending Physician Virgil Carey MD Discharging Providers Virgil Carey MD Reason for Admission chest pain Your Diagnosis Lower GI bleed Asthma Chronic hypoxemic respiratory failure SHO on CPAP Paroxysmal A-fib Peripheral arterial disease HTN (hypertension) Rheumatoid arthritis Atelectasis Tests Performed Below is a partial list of the tests performed during your hospitalization. You may have had other tests and procedures not included in this list. Please discuss all test results with your provider. Basic Metabolic Panel CBC CBC w/ Differential Comprehensive Metabolic Panel GLUCOSE POC High??Sensitivity??Troponin T Magnesium Level Type and Screen Urinalysis w/hold for Urine Culture XR Chest Portable Primary Care Provider Fe León MD Advance Directive Health Care Proxy on File Yes - Health Care Proxy Discharge Vitals Temperature: 97.5 DegF Weight: 75.7 kg Pulse Rate: 79 bpm ?? Pulse Rate: 79 bpm ?? Respiratory Rate: 20 br/min ?? Systolic Blood Pressure:??139 mm Hg??High ?? Systolic Blood Pressure:??139 mm Hg??High ?? Diastolic Blood Pressure: 68 mm Hg ?? Diastolic Blood Pressure: 68 mm Hg ?? Oxygen Saturation: 98 % ?? Studies Pending All tests and labs ordered during this hospital stay have been completed unless listed below. Please discuss all pending results with your provider listed above in these instructions. ?? No incomplete studies found What to do next Instructions From Your Doctor Discharge Orders Discharge Medications ELKE DAVID :1955 Visit Date:08/08/2023 Medications: Please continue your medications until treatment is completed or stopped by your provider. Medications not listed below should be discontinued. Discuss any questions related to medications with your provider. What How Much When Instructions Next Dose Unchanged Acetaminophen (acetaminophen 325 mg oral tablet) 2 tab(s) Oral Every 6 hours 08/09 12 pm Unchanged Albuterol (ProAir HFA 90 mcg/ inh inhalation aerosol with adapter) 2 puff(s) Inhalation 4 times a day as needed for Wheezing/Shortness of Breath Duration: 30 Days as needed Unchanged apixaban (apixaban 5 mg oral tablet) 1 tab(s) Oral Twice a day 08/09 pm Unchanged Atorvastatin (atorvastatin 40 mg oral tablet) 1 tab(s) Oral Daily in the morning 08/10 am Unchanged Calcium And Vitamin D Combination (calcium (as carbonate)-vitamin D 500 mg-400 intl unitsoral tablet) Oral Daily ORAL, TABLET, 0 Refill(s), ?? 08/10 am Unchanged Clopidogrel (Plavix 75 mg oral tablet) 1 tab(s) Oral Daily 08/10 am Unchanged Diltiazem (Cardizem CD 120 mg/ 24 hours oral capsule, extended release) 120 Milligram Oral Daily 08/10 am Unchanged Docusate-Senna (docusate-senna 50 mg-8.6 mg oral capsule) 2 capsule Oral Daily in PM 08/09 pm Unchanged Duloxetine (Cymbalta 30 mg oral enteric coated capsule) 1 capsule Oral Daily in the morning ORAL, CAPSULE, DELAYED RELEASE PELLETS, 0 Refill(s), ?? 08/10 am Unchanged fluticasone/ umeclidinium/ vilanterol (Trelegy Ellipta 200 mcg-62.5 mcg-25 mcg/ inh inhalation powder) 1 puff(s) Inhalation Daily Duration: 30 Days at the same time every day ?? 08/10 am Unchanged Furosemide (furosemide 20 mg oral tablet) 1 tab(s) Oral Wednesday, Wednesday and Wednesday Duration: 30 Days 08/11 am Unchanged Metoprolol (metoprolol 25 mg oral tablet, extended release) 2 tab(s) Oral Daily ORAL, TABLET, EXTENDED RELEASE, 0 Refill(s), ?? 08/10 am Unchanged Miscellaneous Rx (DAILY DAISY TABLET) 1 tab(s) Oral Daily 08/10 am Unchanged Oxycodone (oxyCODONE 5 mg oral tablet) 1 tab(s) Oral Twice a day as needed for Pain , Moderate as needed Unchanged Oxygen Unchanged Polyethylene Glycol 3350 (MiraLax oral powder for reconstitution) 17 gram Oral Daily as needed for Constipation dissolve in water or juice ?? as needed Unchanged Pregabalin (pregabalin 75 mg oral capsule) 1 capsule TAKE 1 CAPSULE BY MOUTH EVERY 8 HOURS ?? 10 pm Unchanged sarilumab (Kevzara 150 mg/ 1.14 mL subcutaneous solution) Subcutaneous Infusion Every 14 days resume schedule Unchanged Valsartan (valsartan 80 mg oral tablet) TAKE 1 TABLET BY MOUTH EVERY DAY ?? 08/10 am ?? What How Much When Comments Stop Taking SulfaSALAZINE (sulfaSALAzine 500 mg oral tablet) 2 tab(s) Oral Twice a day Stop Taking Vitamin E Oral Daily Test Results Below is a partial list of the most recent Laboratory test results done prior to this discharge. You may have had other tests and procedures not included in this list. Please discuss all test resultswith your provider. Basic Metabolic Panel (08/09/2023) ???Sodium - 139 mmol/L???Potassium - 4.0 mmol/L???Chloride - 99 mmol/L???Bicarbonate Level - 32 mmol/L???Anion Gap - 8???Glucose Level - 106 mg/dL???BUN - 21 mg/dL???Creatinine-Blood - 0.7 mg/dL???Estimated GFR Creatinine - 89 ML/MIN/1.73 M2???Calcium - 8.4 mg/dL CBC (08/09/2023) ???WBC - 4.5 k/mm3???RBC - 2.80 m/mm3???Hgb - 9.4 Gm/dL???Hct - 29.5 %???MCV - 105.4 femtoliters???MCH - 33.6 pg???MCHC - 31.9 g/dL???Platelet Count - 145 k/mm3???RDW-SD - 62.1 femtoliters???MPV - 11.1 femtoliters???Nucleated RBC (Automated) - 0.0 #/100 WBC'S???Abs. NRBC - 0.0 k/mm3 CBC w/ Differential (08/08/2023) ???WBC - 4.1 k/mm3???RBC - 3.18 m/mm3???Hgb - 10.3 Gm/dL???Hct - 33.2 %???MCV - 104.4 femtoliters???MCH - 32.4 pg???MCHC - 31.0 g/dL???Platelet Count - 160 k/mm3???RDW-SD - 62.4 femtoliters???MPV - 10.8 femtoliters???Nucleated RBC (Automated) - 0.0 #/100 WBC'S???Abs. NRBC - 0.0 k/mm3???Abs. Neut - 1.6 k/mm3???Abs. Lymph - 1.8 k/mm3???Abs. [place] - 0.5 k/mm3???Abs. Eo - 0.1 k/mm3???Abs. Baso - 0.0 k/mm3???Neut % - 39.1 %???Lymph % - 45.1 %???[place] % - 11.5 %???Eos % - 3.4 %???Baso % - 0.7 %???Imm Gran - 0.2 %???Abs. Imm Gran - 0.0 k/mm3 Comprehensive Metabolic Panel (08/08/2023) ???Sodium - 145 mmol/L???Potassium - 4.2 mmol/L???Chloride - 100 mmol/L???Bicarbonate Level - 29 mmol/L???Anion Gap - 16???Glucose Level - 94 mg/dL???BUN - 21 mg/dL???Creatinine-Blood - 0.8 mg/dL???Estimated GFR Creatinine - 77 ML/MIN/1.73 M2???Calcium - 9.0 mg/dL???Protein, Total - 6.2 Gm/dL???Albumin - 4.4 Gm/dL???AG Ratio - 2.4???Alkaline Phosphatase - 72 units/L???AST (SGOT) - 32 units/L???ALT (SGPT) - 24 units/L???Bilirubin, Total - 0.4 mg/dL GLUCOSE POC (08/08/2023) ???Glucose, POC - 92 mg/dL High??Sensitivity??Troponin T (08/08/2023) ???High Sensitivity Troponin (HSTnT) - 21 ng/L Magnesium Level (08/08/2023) ???Magnesium - 1.8 mg/dL Type and Screen (08/08/2023) ???Blood Type - O Positive???Antibody Screen - Negative Urinalysis w/hold for Urine Culture (08/08/2023) ???Appear/Color, Urine - YELLOW???Specific [place], Urine - 1.025???pH, Urine - 5.5???Albumin, Urine - 1+???Glucose, Urine - TRACE???Ketones, Urine - TRACE???Bilirubin, Urine - NEGATIVE???Hemoglobin,Urine - NEGATIVE???Nitrite, Urine - NEGATIVE???Leukocyte, Urine - TRACE???Urobilinogen - NORMAL???WBC's, Urine - 4 /HPF???RBC's, Urine - 2 /HPF???Squamous Epith - 5 /HPF???Hold Urine Culture - Testing available 48 hours from time of collection. Allergies (NKA means No Known Allergies) Levaquin??(itchy) [...] Educational Leaflet Providered with your Discharge Instructions. Valuables and Belongings I fully understand and agree that [facility] responsibility for all my [...] patient Date for Pt to Sign Valuables/Belongings: 08/08/23 11:56:00 ?? Other Discharge Information ? Pulmonary Rehab Status?? Pulmonary Rehab Discharge Status?? Respiratory Rate: 20 br/min ? Common Emergency Awareness Tips IS [...] are strongly encouraged to quit. Please call [facility] [employer] Link at [phone] or [phone] TechnologiesASHT[facility] ([phone]) or log in to [email or web address] for referrals to smoking cessation programs. ?? 739 Suicide & Crisis Lifeline is available 10/05 if you or someone you know needs to find a reason to keep living. By calling 498 you'll be connected to a skilled, trained counselor at a crisis center in your area. INPATIENT DISCHARGE INSTRUCTIONS SIGNATURE PAGE ELKE DAVID Location:[facility] Registration Date and Time:08/08/2023 08:07 EDT Primary Care Physician: Romelia ULRICH, Fe Dubois, Attending Physician: Virgil Carey MD, I SURINDER ISRA VYASE, have received the above patient education materials/instructions and haveverbalized understanding. If ambulance or transport services are being used I further acknowledge being given a choice of service. ?? If you need to contact me, please call me at this number: . Patient/Shank Boner Name: Patient/Shank Boner Signature: Relationship to Patient: Witness Name/Signature: Date: * Selam Mcqueen RN: PERFORM Event Display: Patient Education Leaflets Authored Date: [id number] When You Have Gastrointestinal (GI) Bleeding ?? [id number] When You Have Gastrointestinal (GI) Bleeding Blood in your vomit or stool can be a sign of gastrointestinal (GI) bleeding. GI bleeding can be scary. But the cause may not be serious. You should??always??see your healthcare provider if you have GI bleeding. The GI tract is the path through which??food travels in the body. Food passes from the mouth down the esophagus. This is the tube from the mouth to the stomach. Food starts to break down in the stomach. It then moves through the duodenum ,??the first part of the small intestine . Nutrients are absorbed as food travels through the small intestine. What is left passes into the colon (large intestine) as waste. The colon removes water from the waste. Waste continues from the colon to the rectum (where stool is stored). Waste then leaves the body through the anus . The upper GI tract is from the mouth through the duodenum. The lower GI tract is from the end of the duodenum to the anus. Causes of GI bleeding GI bleeding can be caused by many different problems. Some of the more common causes include: ??? Swollen veins in the anus (hemorrhoids) ??? Swollen veins in the esophagus (varices) ??? Sore on the lining of the GI tract (ulcer) ??? Cuts or scrapes in the mouth or throat ??? Infection caused by germs such as bacteria or parasites ??? Food allergies, such as milk allergy in young children ??? Medi cines, especially aspirin, blood thinners, and NSAIDs (non-steroidal anti- inflammatory drugs) such as ibuprofen ??? Inflammation of the GI tract (gastritis or esophagitis) ??? Colitis (Crohn's disease or ulcerative colitis) ??? Cancer (tumors or polyps) ??? Abnormal pouches in the colon (diverticula) ??? Tears in the esophagus or anus ??? Nosebleed ??? Abnormal blood vessels in the GI tract (angiodysplasia) ?? Diagnosing the cause of blood in stool If blood is coming out in your stool, you may have a lower GI tract problem??or a very fast upper GI tract bleed. Bleeding from the GI tract can be bright red. Or it may look dark and tarry.??Tests may also find blood in your stool that can???t be seen with the eye (occult blood). To find out the cause, tests that may be ordered include: ??? Blood tests. A blood sample is taken and sent to a lab for exam. ??? Hemoccult test. Checks a stool sample for blood. ??? Stool culture and other stool-based tests. These check a stool sample for bacteria or parasites, inflammation, and other problems ???X-ray, ultrasound, nuclear scan, or CT scan. Imaging tests that take pictures of the digestive tract. ??? Colonoscopy or sigmoidoscopy. This test uses a flexible tube with a tiny camera. The tube is inserted through your anus into your rectum to see the inside of your colon. Your provider can also take a tiny tissue sample (biopsy) to be looked at in a lab. They can also treat a bleeding source ??? Capsule endoscopy. This test uses a tiny camera that is swallowed, passes through the intestine, a nd takes pictures of the small intestine. This is harder to reach with scopes. ?? Diagnosing the cause of blood in vomit If you are vomiting blood or something that looks like coffee grounds,??you may have an upper GI tract problem. To find the cause, tests that may be done include: ??? Upper endoscopy. A flexible tubewith a tiny camera is inserted through your mouth and throat to see inside your upper GI tract. This lets your provider take a tiny tissue sample (biopsy) to be looked at in a lab. They can also treat a bleeding source. ??? Nasogastric lavage and aspiration. The healthcare provider may withdraw some of the fluid in the stomach to test it for bleeding. This can sometimes tell if you have upper GI or lower GI bleeding. ??? X-ray, ultrasound, nuclear scan, or CT scan. Imaging tests that take pictures of your digestive tract. ??? Upper GI series. X-rays of the upper part of your GI tract taken after swallowing a contrast drink. ??? Enteroscopy. This sends a flexible tube or a small, swallowed capsule camera into your small intestine. ?? Call 911 Call 911 if any of the following occur: ??? Bleeding from your mouth or anus that can't be stopped ??? Bleeding along with feeling lightheaded or dizzy ?? When to call your healthcare provider Call your healthcare provider right away if you have any of the following: ??? Fever of 100.4?? F??( 38.0??) or above, or as directed by your provider ??? Signs of fluid loss (dehydration). These include a dry, sticky mouth, decreased urine output, and very dark urine. ??? Belly (abdominal) pain ?? Last Reviewed Date: 2021 ?? [id number] [employer]. All rights reserved. This information is not intended as a substitute for professional medical care. Always follow your healthcare professional's instructions. ?? Patient Care team information Care Team Personnel Name: Myrtle Lim RN Position: [facility] RN Member Role: Primary Care Nurse Name: Fe León MD Position: [facility] Physician - Primary Care Member Role: PCP Address: Address: [address] [place] [address] 1 [facility] [address] Name: Vivienne Collins Position: [facility] RN Member Role: Primary Care Nurse Name: Garett Osei RN Position: [facility] RN Member Role: Primary Care Nurse Name: Fe Harp RN Position: S RN Member Role: Primary Care Nurse Name: Johanna Carmen RN Position: [facility] RN Member Role: Primary Care Nurse Name: Tiffany Zaldivar RN Position: S RN Member Role: Primary Care Nurse Name: Huseyin Abrams RN Position: S RN Member Role: Primary Care Nurse Name: Uma Herbert RN Position: S RN Member Role: Primary Care Nurse Name: Marlena Byrne Position: S RN Member Role: Primary Care Nurse Name: Ashley Gallardo RN Position: S RN Member Role: Primary Care Nurse Name: Lorin Vu Position: [facility] AMB Nurse Member Role: Lifetime Consulting Physician Name: Opal Dumont RN Position: [facility] RN Member Role: Primary Care Nurse Name: Jamie Prince RN Position: [facility] RN Member Role: Primary Care Nurse Name: Dorothy Rosales RN Position: [facility] RN Member Role: Primary Care Nurse Name: Yee Melo RN Position: [facility] SN RN Member Role: Primary Care Nurse Name: Tracee Angelo RN Position: [facility] RN Member Role: Primary Care Nurse Name: Shana Duff RN Position: [facility] RN Member Role: Primary Care Nurse Name: Renetta Verdugo RN Position: [facility] RN Member Role: Primary Care Nurse Name: Edda Ramirez RN Position: [facility] RN Member Role: Primary Care Nurse Name: Neris Sorto RN Position: [facility] RN Member Role: Primary Care Nurse Name: Garth Underwood RN Position: [facility] RN Member Role: Primary Care Nurse Name: Anahi Hall RN Position: [facility] RN Member Role: Primary Care Nurse Name: Desirae Oshea LPN Position: [facility] RN Member Role: Primary Care Nurse Name: Cain Mayers DO Position: [facility] Resident Member Role: ED Resident Address: Address: [address] [place] [address] [place] [address]- Name: Colette Goodman RN Position: [facility] ED RN W/OE and Tasks Member Role: Patient Care Provider Name: Yajaira Baca Position: [facility] ED TA [facility] Member Role: Teradata Developer Name: Raj Sunshine RN Position: [facility] ED RN W/OE and Tasks Member Role: Patient Care Provider Name: Saul Leon MD Position: [facility] ED Medicine MD Address: Address: [address] [place] [address]- Care Team Related Persons Name: POLLY DAVILA Name: POLLY OTOOLE Address: home [address] [place] [address] Name: TIFFANY VYAS Address: home [address] [place] [id number]
--- OUTSIDE RECORDS SUMMARY | 2023-12-07 10:44 | XMS_ITS | Continuity of Care Document ---
Author Name Unknown Organization [facility] Address [address] [place] [address]- Care Team Providers Care Property Maintenance Technician Name Role Phone Not on Staff, PCP Primary Care Physician Unavail able Encounter [facility] [place] [place] Date(s): 04/18/20 - 05/18/20 [facility] [address] [place] [address]- [facility] Attending Physician: AdmNolan aleman Admitting Physician: AdmtrNolan Referring Physician: Admtr, Nolan Allergies, Adverse Reactions, Alerts Substance Reaction Severity [...] tablet, 4 Refills, Maintenance, 11/13/19 8:13:00 EST, [id number], 161.3, cm, 06/30/19 13:59:00 EDT, Height, 75, [...] 12/26/19 8:50:00 EDT, Route to Pharmacy Electronically, [facility]/pharmacy #[id number], 161.3, cm, 06/30/19 13:59:00 EDT, [...] 3 Refills, Soft Stop, 12/27/19 11:00:00 EDT, [facility]/pharmacy #[id number], 161.3, cm, 06/30/19 13:59:00 EDT, [...]
--- OUTSIDE RECORDS SUMMARY | 2023-12-07 10:44 | XMS_ITS | Continuity of Care Document ---
Author Name Unknown Organization [facility] Address [address] [place] [address]- Care Team Providers Care Operator Engineer Name Role Phone Romelia ULRICH, Fe Dubois Primary Care Physician Encounter [facility] [place] Date(s): 01/01/22 - 01/31/22 [facility] [address] [place] [address] Attending Physician: AdmNolan aleman Admitting Physician: AdmNolan aleman Referring Physician: AdmtrNolan [...] mL, 0 Refills, Maintenance, 07/21/21 10:19:00 EDT, [facility]/pharmacy #[id number], Please fill with ANY available gallon colon [...]
--- OUTSIDE RECORDS SUMMARY | 2023-12-07 10:44 | XMS_ITS | Continuity of Care Document ---
Author Name Unknown Organization [facility] Address [address] [place] [address]- Care Team Providers Care History Card Clerk Name Role Phone Not on Staff, PCP Primary Care Physician Unavail able Encounter [facility] [place] Date(s): 07/15/20 - 08/14/[address] [address]- [facility] Attending Physician: Nolan Vincent Admitting Physician: [...] tablet, 4 Refills, Maintenance, 11/13/19 8:13:00 EST, [facility]58[facility], 161.3, cm, 06/30/19 13:59:00 EDT, Height, 75, [...] 12/26/19 8:50:00 EDT, Route to Pharmacy Electronically, [facility]/pharmacy #[id number], 161.3, cm, 06/30/19 13:59:00 EDT, Height, [...] 3 Refills, Soft Stop, 12/27/19 11:00:00 EDT, [facility]/pharmacy #[id number], 161.3, cm, 06/30/19 13:59:00 EDT, Height, [...]
--- OUTSIDE RECORDS SUMMARY | 2023-12-07 10:44 | XMS_ITS | Continuity of Care Document ---
Author Name Unknown Organization [facility] Address [address] [place] [address]- Care Team Providers Care Office Professionals Name Role Phone Not on Staff, PCP Primary Care Physician Unavail able Encounter [facility] [place] Date(s): 01/19/20 - 05/23/20 [facility] [address] [place] [address]- [facility] Attending Physician: Elvira FORD, Jessica Montez Admitting Physician: Jessica Feilx NP Referring Physician: Jenni ULRICH, Jean Paul Nathan Allergies, Adverse Reactions, Alerts Substance Reaction Severity [...] tablet, 4 Refills, Maintenance, 11/13/19 8:13:00 EST, [facility] [id number], 161.3, cm, 06/30/19 13:59:00 EDT, Height, 75, [...] 12/26/19 8:50:00 EDT, Route to Pharmacy Electronically, [facility]/pharmacy #[id number], 161.3, cm, 06/30/19 13:59:00 EDT, Height, [...] 3 Refills, Soft Stop, 12/27/19 11:00:00 EDT, [facility]/pharmacy #[id number], 161.3, cm, 06/30/19 13:59:00 EDT, Height, [...] oldest [Reference Range]: 1 Height 161.3 cm (04/22/20 4:10 PM) Weight 68.2 kg (04/22/20 4:10 PM) Body Mass Index [18.5-24.99] 26.21 *H* (04/22/20 4:10 PM) Weight Obtained Via Patient/family state d (04/22/20 4:10 PM) Social History Social History Type Response Smoking Status Former smoker; Type: Cigarettes entered on: 04/13/16 Sex
--- OUTSIDE RECORDS SUMMARY | 2023-12-07 10:44 | XMS_ITS | Continuity of Care Document ---
Author Name Unknown Organization [facility] Address [address] [place] [address]- Care Team Providers Care Company Miner Blasting Name Role Phone Not on Staff, PCP Primary Care Physician Unavail able Encounter [facility] [place] Date(s): 04/23/20 - 05/23/20 [facility] [address] [place] [address]- [facility] Attending Physician: Admash, Nolan Admitting Physician: AdmtrNolan Referring Physician: Admtr, Ar8 Allergies, Adverse Reactions, Alerts Substance Reaction Severity [...] tablet, 4 Refills, Maintenance, 11/13/19 8:13:00 EST, [facility] 30809, 161.3, cm, 06/30/19 13:59:00 EDT, Height, 75, [...] 8:50:00 EDT, Route to Pharmacy Electronically, [facility]/pharmacy #[id number], 161.3, cm, 06/30/19 13:59:00 EDT, [...] Refills, Soft Stop, 12/27/19 11:00:00 EDT, [facility]/pharmacy #[id number], 161.3, cm, 06/30/19 13:59:00 EDT, [...]
--- OUTSIDE RECORDS SUMMARY | 2023-12-07 10:44 | XMS_ITS | Continuity of Care Document ---
Author Name Unknown Organization [facility] Address [address] [place] [address]- Care Team Providers Care Director Of Research Name Role Phone Romelia ULRICH, Fe Dubois Primary Care Physician Encounter [facility] [place] Date(s): 09/03/21 - 10/08/21 [facility] [address] [place], [place] [address] Attending Physician: Fernanda Dave MD Admitting Physician: [...] mL, 0 Refills, Maintenance, 07/21/21 10:19:00 EDT, [facility]/pharmacy #[id number], Please fill with ANY available gallon colon [...]
--- OUTSIDE RECORDS SUMMARY | 2023-12-07 10:44 | XMS_ITS | Continuity of Care Document ---
Author Name Unknown Organization [facility] Address [address] [place] [address]- Care Team Providers Care Director Digital Advertising Name Role Phone Romelia ULRICH, Fe Dubois Primary Care Physician Encounter [facility] [place] Date(s): 07/24/21 - 07/24/[address] [address] Discharge Disposition: A-D/C Home Attending Physician: Raj Jung MD Admitting Physician: Raj Jung MD Referring Physician: Raj Jung MD Allergies, Adverse [...] mL, 0 Refills, Maintenance, 07/21/21 10:19:00 EDT, [facility]/pharmacy #[id number], Please fill with ANY available gallon colon [...] oldest [Reference Range]: 1 2 3 Height 162.5 cm (07/24/21 10:27 AM) Oxygen Saturation [94-100 %] 94 % (07/24/21 12:17 PM) 95 % (07/24/21 12:10 PM) 95 % (07/24/21 12:08 PM) Pulse Rate [55-90 bpm] 93 bpm *H* (07/24/21 10: AM) Blood Pressure [90-138/55-84 mm Hg] 144/68mm Hg *H* (07/24/21 12:17 PM) 129/74mm Hg (07/24/21 12:10 PM) 131/61mm Hg (07/24/21 12:08 PM) Respiratory Rate [16-30 br/min] 21 br/min (07/24/21 12:17 PM) 22 br/min (07/24/21 12:10 PM) 22 br/min (07/24/21 12:08 PM) Temperature [96.8-100.4 DegF] 98.7 DegF (07/24/21 10:27 AM) Mode of Delivery (Oxygen) Room air (07/24/21 12:17 PM) Room air (07/24/21 12:10 PM) Room air (07/24/21 12:08 PM) Blood pressure sites Arm, left (07/24/21 12:17 PM) Arm, left (07/24/21 12:10 PM) Arm, left (07/24/21 12:08 PM) Temperature Route Temporal (07/24/21 10:27 AM) Dry Weight 72.6 kg (07/24/21 10:27 AM) Dry Weight Obtained Via Patient/family s tated (07/24/21 10:27 AM) Social History Social History Type Response Smoking Status Former smoker; Type: Cigarettes entered on: 04/13/16 Sex
--- OUTSIDE RECORDS SUMMARY | 2023-12-07 10:44 | XMS_ITS | Continuity of Care Document ---
Author Name Unknown Organization [facility] Address [address] [place] [address]- Care Team Providers Care Agency Sales Management Assistant Name Role Phone Not on Staff, PCP Primary Care Physician Unavail able Encounter [facility] [place] Date(s): 01/19/20 - 05/18/20 [facility] [address] [place] [address]- [facility] Attending Physician: Elvira FORD, Jessica Montez Admitting Physician: Jessica Felix NP Referring Physician: Jessica Felix NP Allergies, Adverse Reactions, Alerts Substance Reaction Severity [...] tablet, 4 Refills, Maintenance, 11/13/19 8:13:00 EST, [facility] 40327, 161.3, cm, 06/30/19 13:59:00 EDT, Height, 75, [...] 12/26/19 8:50:00 EDT, Route to Pharmacy Electronically, [facility]/pharmacy #[id number], 161.3, cm, 06/30/19 13:59:00 [...] 3 Refills, Soft Stop, 12/27/19 11:00:00 EDT, [facility]/pharmacy #[id number], 161.3, cm, 06/30/19 13:59:00 [...]
--- OUTSIDE RECORDS SUMMARY | 2023-12-07 10:44 | XMS_ITS | Continuity of Care Document ---
Author Name Unknown Organization [facility] Address [address] [place] [address]- Care Team Providers Care Solar Thermal Technician Name Role Phone Romelia ULRICH, Fe Dubois Primary Care Physician [place] [facility] [place] 10[place]10/21 [facility] [address] [place] [id number] Allergies, Adverse Reactions, Alerts Substance Reaction Severity [...] Maintenance, 07/21/21 10:19:00 EDT, [facility]/pharmacy #[id number], Please fill with ANY available gallon [...]
--- OUTSIDE RECORDS SUMMARY | 2023-12-07 10:44 | XMS_ITS | Continuity of Care Document ---
Author Name Unknown Organization [facility] Address [address] [place] [address]- Care Team Providers Care Rubber Tire Curer Name Role Phone Romelia ULRICH, Fe Dubois Primary Care Physician ( [phone] [id number] Date(s): 10/03/21 - 01/31/22 [facility] [address] [place] [address]- Attending Physician: Tammy Stephens MD Referring Physician: Fe León MD Allergies, Adverse Reactions, Alerts Substance Reaction [...] 0 Refills, Maintenance, 07/21/21 10:19:00 EDT, [facility]/pharmacy #[id number], Please fill with ANY available gallon colon [...]
== END 2023-12-07 11:21 | disposition home or self-care (01) ==
LOC: HO.HPS 10:40
PROVIDERS: PCP Internal Medicine; Visit Provider Hospitalist
DX: J96.11 Chronic respiratory failure with hypoxia (principal); J44.9 Chronic obstructive pulmonary disease, unspecified; Z14.1 Cystic fibrosis carrier; E27.40 Unspecified adrenocortical insufficiency; B33.8 Other specified viral diseases; J30.0 Vasomotor rhinitis; D80.1 Nonfamilial hypogammaglobulinemia; J98.11 Atelectasis
CPT/HCPCS: 99442

== ENCOUNTER → 2023-12-07 10:40 | Outpatient (BNVA) | payer MEDICARE, MEDICAID, SELFPAY | PROVIDERS: PCP Internal Medicine; Visit Provider Hospitalist ==

== ENCOUNTER 2023-12-08 10:38 | Outpatient (REF) | payer MEDICARE, MEDICAID, SELFPAY ==
[2023-12-08 10:57] LABS: MANUAL DIFF FLAG NO
[2023-12-08 11:01] LABS: Basophils Percent Auto 0.2 % (0-2); Hematocrit 27.5 % (37.0-47.0); Hemoglobin 8.8 g/dl (12.0-16.0); Imm Gran Abs Auto 0.06 X10*3/uL (0.00-0.03); Imm Gran Pct Auto 0.6 % (0.0-0.4); Lymphocytes Absolute Auto 1.2 X10*3/uL (1.2-4.9); Lymphocytes Percent Auto 11.5 % (20-40); Mean Corpuscular Hemoglobin 31.5 pg (27.0-33.0); Mean Corpuscular Volume 98.6 fL (80.0-98.0); Monocytes Absolute Auto 0.5 X10*3/uL (0.1-1.2); Monocytes Percent Auto 4.9 % (2-11); Neutrophils Absolute Auto 8.5 x10*3/uL (2.0-8.3); Neutrophils Percent Auto 82.8 % (45-73); Platelet Count 238 X10*3/uL (160-400); Red Blood Count 2.79 X10*6/uL (4.20-5.50); Red Cell Distribution Width 15.1 % (11.0-16.0); White Blood Count 10.2 X10*3/uL (4.8-10.8)
[2023-12-08 11:02] LABS: Venous Blood Gas Refer to POC result
[2023-12-08 11:03] LABS: VBG pCO2 60 mmHg; VBG pH 7.45 (7.32-7.43); VBG pO2 39 mmHg
[2023-12-08 11:04] LABS: VBG Base Excess 16.4 mmol/L; VBG HCO3 42 mmol/L (22-26)
[2023-12-08 11:26] LABS: Alanine Aminotransferase 14 U/L (0-31); Albumin Level 3.9 g/dL (3.5-5.0); Alkaline Phosphatase 68 U/L (39-117); Anion Gap 20 (12-20); Aspartate Amino Transferase 17 U/L (5-31); Bilirubin Direct 0.3 mg/dL (0.0-0.5); Bilirubin Total 0.4 mg/dL (0.0-1.0); Blood Urea Nitrogen 20 mg/dL (9-16); Calcium 9.5 mg/dL (8.4-10.2); Carbon Dioxide 35 mmol/L (22-29); Chloride 87 mmol/L (96-108); Estimated Glomerular Filt Rate > 60; Glucose Random 163 mg/dL (60-115); Potassium 2.8 mmol/L (3.3-5.1); Sodium 139 mmol/L (135-145); Total Protein 6.7 g/dL (6.5-8.0)
== END 2023-12-08 10:39 | disposition home or self-care (01) ==
LOC: HO.LAB 10:38
PROVIDERS: Visit Provider Hospitalist
DX: J96.10 Chronic respiratory failure, unspecified whether with hypoxia or hypercapnia (principal)
CPT/HCPCS: 36415; 80048; 80076; 82803; 85025

== ENCOUNTER 2023-12-13 12:51 | Outpatient (AMB) | payer MEDICARE, MEDICAID, SELFPAY ==
[2023-12-13 13:12] VITALS: BP 126/60; PULSE 92; O2SAT 96; BMI 28.0
--- NOTE | 2023-12-13 13:12 | A.OFFVIS_ITS ---
Intake Vital Signs 12/13/23 13:12 Height 5 ft 3 in Weight 158 lb BMI 28.0 BP 126/60 Blood Pressure Location Lt brachial Position Sitting Pulse 92 Pulse Source Pulse Oximeter Pulse Oximetry (%) 96 Oxygen Delivery Method Room Air Comment 2 Liters Oxygen([employer]) Intake Visit Reasons: COPD Allergies levofloxacin [Levaquin] Allergy (Severe, Verified 12/13/23 13:17) vomiting HPI HPI Comments History of Present Illness Details Patient is 68 y/o woman with a history of COPD O2 dependent in addition to all cystic fibrosis carrier. She has been using the oxygen with good effect. On room air at rest she is down to 87%. When she wears the oxygen at 2 L pulse increases to 94%. She continues to have issues with wheezing and shortness of breath mainly in the morning. She does use her Anoro daily. She felt better when she uses Trelegy in the past. She does not like to use steroids but they seem to help her wheezing specially that in the morning. Therefore, I will switch her back to trelegy as she failed Anoro. She continues uses CPAP with CPAP therapy continues to be affecting beneficial. She uses a nasal pillow mask and it works well. She uses the CPAP more than 4 hours a night. The major issue is that the patient needs increased portability with oxygen. A portable tanks are not providing with enough portability in order for her to do her activities outside of the home. She cannot carry multiple attacks of significant arthritic disease due to the fact that she does have marked arthritis. She continues to have issues with wheezing and shortness of breath mainly in the morning. She does use her Anoro daily. She felt better when she uses Trelegy in the past. She does not like to use steroids but they seem to help her wheezing specially that in the morning. Therefore, I will switch her back to trelegy as she failed Anoro. She continues uses CPAP with CPAP therapy continues to be affecting beneficial. She uses a nasal pillow mask and it works well. She uses the CPAP more than 4 hours a night. The major issue is that the patient needs increased portability with oxygen. A portable tanks are not providing with enough portability in order for her to do her activities outside of the home. She cannot carry multiple attacks of significant arthritic disease due to the fact that she does have marked arthritis. Therefore, the patient needs to get a portable oxygen concentrator through [facility], [place]. We will submit the proper paperwork in start the process for her to be able to get a battery operated portable oxygen concentrator. 01/15/2023 the patient is here for pulmonary follow-up visit. Overall she doing relatively well from a respiratory status. She does have chest congestion and nasal congestion in the morning after using her CPAP. But otherwise clears up after that. She does have the oxygen that she can use with activity. She also uses the oxygen at nighttime with her CPAP. Her CPAP therapy continues to be affecting beneficial and she does use it for more than 4 hours a night. She was wondering about the hypoglossal nerve stimulator. I advised her against considering that option in the meantime the patient has been using her respiratory therapy with good effect. Recently she had blood work including her IgG levels that were found to be low and also a CBC with evidence of microcytosis. The patient has had history of B12 deficiency in the past. Therefore, she is going to go back to using multivitamins with B complex and will have repeat blood work in a couple months. Hopefully her IgG levels improved and her MCV also improves. Patient also may benefit from a hematological evaluation. She continues use the Trelegy inhaler with good effect. No need for prednisone at this time which is reassuring. 07/15/2023 the patient is here for hospital follow-up visit. The patient recently was hospitalized at [facility] for shoulder surgery. The surgery went well but apparently after she was having issues with respiratory distress. There was suspicion of aspiration pneumonitis. The patient did have to use oxygen. She was also kept in the hospital given antibiotics and also I respiratory therapy treatments. The patient also had a CT scan of the chest demonstrating some new pulmonary nodules that will need follow-up. She continues to struggle with her breathing. Still requiring between 2-3 L with activity. Prior to that she was is using her oxygen at nighttime with her PAP therapy. We did go for brief walking oximetry in the patient did desaturate very quickly at rest and did make up to 3 L with activity. She has a hard time caring the oxygen tanks because her shoulder surgery. I did ask for small trial E for her to get from her [employer] company in order for her to be able to carry her oxygen. Will plan to start her on prednisone and also get an x-ray prior to the next visit. She should follow-up in 3-4 weeks. 08/05/2023 the patient is here for a pulmonary follow-up visit. The patient is feeling a little better. She still has significant pain from her shoulder surgery. She has been using her oxygen. The oxygen therapy has been affecting beneficial. Although is very difficult for her to carry the oxygen outside of the home because of her shoulder. For the most part she stays in her house. She still desaturates and she still needs to continues use her oxygen. She did undergo a repeat chest x-ray which I did review with her and we compared to her chest x-rays from [facility]. There is interval improvement in the bibasilar opacities which is reassuring. Also to note the patient was admitted to the hospital again at [facility] with atrial fibrillation with RVR. This is new onset AFib for her. She was seen by Cardiology. She was initially placed on Eliquis and also amiodarone. The dose of amiodarone has subsequently decreased. No evidence of any worsening shortness of breath which is reassuring. 12/07/2023 the patient has a telehealth visit today. Apparently she was sick with RSV back in October where she spent several weeks in the hospital. She did require ICU level of care. She was not high-flow. She was then transferred to an acute rehab most likely because of ongoing respiratory failure. The patient there spent about another 2-3 weeks. Subsequently after that she was discharged home on some prednisone she just finished the last week. She started developing dizziness, nausea vomiting, malaise. She feels very sleepy. Denies any worsening of the breathing although she is short of breath with activity. She has been using her oxygen with good effect. Will go ahead and give her some Zofran for her nausea and vomiting will start her back on 20 mg of prednisone for this suspicion of adrenal insufficiency secondary to her multiple wakes up prednisone likely high dose. The patient will start on the 20 mg twice a day for the 1st day then 20 mg daily. Once she feels better she needs to come in for blood work including a venous gas to make sure that his CO2 is within the normal ranges. If the patient worsens she knows she needs to go to the ER in view of her significant comorbidities. 12/13/2023 the patient has a follow-up visit today. We had a telehealth visit just last week. The patient was having significant adverse effects from withdrawal from prednisone. Likely developing secondary adrenal insufficiency. the patient did start prednisone she quickly start feeling better. She is up to 20 mg daily. She also underwent blood work demonstrating a critically low potassium of 2.8 which we repleted with oral supplement. In addition to that the patient was noted to be anemic with hemoglobin down to 8.8. We did repeat her blood work today appears that her potassium is back to normal and her hemoglobin is a little better up to 9. therefore it is reassuring. The patient has been using her oxygen with good effect. In addition to that the patient has been hypomanic. She is here with her sister. She is acting strangely and not keeping her boundaries. Explained to the sister that is likely all the prednisone. Will going to quickly try to decrease it down to 10 mg daily. She can continue on that dose. When she follows up in the coming weeks we can work on decreasing her prednisone further. In the meantime she would benefit from an endocrinology evaluation for adrenal insufficiency. I will make a referral at this time. [facility] Medical History (Updated 12/13/23 @ 22:15 by Luke Luna MD) Adrenal insufficiency RSV (respiratory syncytial virus infection) Atelectasis Hypercalciuria Hypogammaglobulinemia Vasomotor rhinitis Osteoporosis GERD (gastroesophageal reflux disease) HLD (hyperlipidemia) HTN (hypertension) History of CVA (cerebrovascular accident) Chronic cough Seropositive rheumatoid arthritis Chronic rheumatic arthritis Chronic respiratory failure COPD (chronic obstructive pulmonary disease) case management patient Cystic fibrosis carrier Surgical History Hx of shoulder surgery History of surgery Family History Son Cystic fibrosis Social History Household Members: None Alcohol intake: current Alcohol intake frequency: holidays/special occasions only Patient Tobacco Use Status: Former Tobacco user Tobacco use type: Cigarette Cigarettes Per Day: 10 Years Smoked: 20 e-Cigarette/Vaping Use: Never Used Review of Systems Const Reports fatigue, Denies frequent falls, Reports headache(s), Reports lethargy and Reports malaise ENT Denies change in voice, Reports dizziness, Reports headache(s), Denies mouth pain, Reports nasal congestion, Reports nasal discharge, Reports post nasal drip and Denies tongue swelling Card Denies chest pain, Reports palpitations and Reports dyspnea on exertion Resp Reports chest congestion, Reports cough, Reports dyspnea on exertion and Reports wheezing GI Reports nausea and Reports vomiting Musc Reports arthralgias, Reports joint swelling and Reports limited range of motion Neuro Reports dizziness, Denies frequent falls and Reports headache(s) Psych Denies no additional complaints Endo Reports fatigue and Reports palpitations Sergey/Lymph Denies easy bleeding and Denies lymphadenopathy Aller/Immun Denies tongue swelling and Reports wheezing Physical Exam Vital Signs: Last Vital Signs Pulse 92 12/13/23 13:12 BP 126/60 12/13/23 13:12 Pulse Ox 96 12/13/23 13:12 Oxygen Delivery Method Room Air 12/13/23 13:12 BMI result Body Mass Index 28.0 Const General: alert HEENT General nose exam: Abnormal external nose present and Nasal discharge present Eyes Pupils: Equal, round and reactive pupils present Neck Neck: Yes normal visual inspection, Yes full ROM and Yes no lymphadenopathy Chest Chest palpation & inspection: normal inspection of the chest Resp Auscultation: no wheezes and diminished lung sounds Cardio Rate: regular rate Rhythm: regular rhythm Heart sounds: S1 normal heart sound present and S2 normal heart sound present GI Palpation (GI): Soft to palpation and nontender Auscultation: normal bowel sounds General: Yes no CVA tenderness Back/Spine/Pelvis Back: no CVA tenderness Skin General skin exam: rashes and/or lesions noted Neuro Cranial nerves: Yes Equal, round and reactive pupils present Assessment & Plan Assessment & Plan (1) Adrenal insufficiency: Code(s): E27.40 - Unspecified adrenocortical insufficiency (2) Chronic respiratory failure: Code(s): J96.10 - Chronic respiratory failure, unspecified whether with hypoxia or hypercapnia Qualifiers: Respiratory failure complication: hypoxia Qualified Code(s): J96.11 - Chronic respiratory failure with hypoxia (3) RSV (respiratory syncytial virus infection): Code(s): B33.8 - Other specified viral diseases (4) COPD (chronic obstructive pulmonary disease) case management patient: Code(s): J44.9 - Chronic obstructive pulmonary disease, unspecified (5) Cystic fibrosis carrier: Code(s): Z14.1 - Cystic fibrosis carrier (6) Chronic cough: Code(s): R05.3 - Chronic cough (7) Vasomotor rhinitis: Code(s): J30.0 - Vasomotor rhinitis (8) Hypogammaglobulinemia: Code(s): D80.1 - Nonfamilial hypogammaglobulinemia (9) Atelectasis: Comment: better Code(s): J98.11 - Atelectasis (10) Anemia: Code(s): D64.9 - Anemia, unspecified Qualifiers: Anemia type: unspecified type Qualified Code(s): D64.9 - Anemia, unspecified Plan decrease Prednisone 20mg daily to 10mg daily endocrinology referral zofran as needed for N/V Bloodwork requested continue Trelegy daily BUdesonide nebs JANNETH as needed Needs to continue oxygen 2L at rest and with PAP, 3L with activity. Had shoulder surgery. Needs trolley to transport the oxygen tank ipratropium nasal spray Continue CPAP at night with O2 ISS/deep breathing exercises F/U 2-3 months Orders: Orders Vitamin B12 and Folate Today D64.9 - Anemia, unspecified Referrals Endocrinology Referral E27.40 - Unspecified adrenocortical insufficiency Coding Level of Care Code Est Pt Level 4 (65249) Diagnoses Adrenal insufficiency E27.40 Chronic respiratory failure with hypoxia J96.11 Respiratory failure complication: hypoxia RSV (respiratory syncytial virus infection) B33.8 COPD (chronic obstructive pulmonary disease) case management patient J44.9 Cystic fibrosis carrier Z14.1 Chronic cough R05.3 Vasomotor rhinitis J30.0 Hypogammaglobulinemia D80.1 Atelectasis J98.11 Anemia, unspecified type D64.9 Anemia type: unspecified type Time Spent (min) 18
== END 2023-12-13 13:42 | disposition home or self-care (01) ==
PROVIDERS: PCP Internal Medicine; Visit Provider Hospitalist
DX: E27.40 Unspecified adrenocortical insufficiency (principal); J96.11 Chronic respiratory failure with hypoxia; B33.8 Other specified viral diseases; J44.9 Chronic obstructive pulmonary disease, unspecified; Z14.1 Cystic fibrosis carrier; R05.3 Chronic cough; J30.0 Vasomotor rhinitis; D80.1 Nonfamilial hypogammaglobulinemia; J98.11 Atelectasis; D64.9 Anemia, unspecified
CPT/HCPCS: 99214

== ENCOUNTER 2023-12-13 12:51 | Outpatient (REF) | payer MEDICARE, MEDICAID, SELFPAY ==
[2023-12-13 13:57] LABS: MANUAL DIFF FLAG NO
[2023-12-13 14:20] LABS: Basophils Percent Auto 0.2 % (0-2); Eosinophils Percent Auto 0.1 % (0-4); Hematocrit 28.8 % (37.0-47.0); Imm Gran Abs Auto 0.11 X10*3/uL (0.00-0.03); Imm Gran Pct Auto 1.2 % (0.0-0.4); Lymphocytes Absolute Auto 1.2 X10*3/uL (1.2-4.9); Lymphocytes Percent Auto 13.1 % (20-40); Mean Corpuscular HGB Conc 31.3 g/dl (31.0-35.0); Mean Corpuscular Hemoglobin 31.7 pg (27.0-33.0); Mean Corpuscular Volume 101.4 fL (80.0-98.0); Monocytes Absolute Auto 0.4 X10*3/uL (0.1-1.2); Monocytes Percent Auto 4.1 % (2-11); NRBC Pct Auto 0.3 /100WBC (0.0-0.2); Neutrophils Absolute Auto 7.5 x10*3/uL (2.0-8.3); Neutrophils Percent Auto 81.3 % (45-73); Platelet Count 302 X10*3/uL (160-400); Red Blood Count 2.84 X10*6/uL (4.20-5.50); Red Cell Distribution Width 16.2 % (11.0-16.0); White Blood Count 9.2 X10*3/uL (4.8-10.8)
[2023-12-13 14:57] LABS: Anion Gap 19 (12-20); Blood Urea Nitrogen 12 mg/dL (9-16); Calcium 10.1 mg/dL (8.4-10.2); Carbon Dioxide 35 mmol/L (22-29); Chloride 93 mmol/L (96-108); Estimated Glomerular Filt Rate > 60; Glucose Random 161 mg/dL (60-115); Iron 21 mcg/dL (30-160); Percent Iron Saturation 7 % (15-50); Potassium 3.6 mmol/L (3.3-5.1); Sodium 143 mmol/L (135-145); Total Iron Binding Capacity 299 mcg/dL (228-428); Unsaturated Iron Binding 278 ug/dL
[2023-12-13 15:14] LABS: Ferritin 38 ng/mL (10-250)
[2023-12-13 15:24] LABS: Folate 13.6 ng/mL (> or = 4.0); Vitamin B12 862 pg/mL (200-900)
== END 2023-12-13 12:52 | disposition home or self-care (01) ==
LOC: HO.LAB 12:51
PROVIDERS: PCP Internal Medicine; Visit Provider Hospitalist
DX: J44.9 Chronic obstructive pulmonary disease, unspecified (principal); D64.9 Anemia, unspecified; E27.40 Unspecified adrenocortical insufficiency; J96.11 Chronic respiratory failure with hypoxia; B33.8 Other specified viral diseases; R05.3 Chronic cough
CPT/HCPCS: 36415; 80048; 82607; 82728; 82746; 83540; 85025; 99212

== ENCOUNTER 2023-12-28 10:27 | Outpatient (AMB) | payer MEDICARE, MEDICAID, SELFPAY ==
--- NOTE | 2023-12-28 10:47 | HO.NEPHOV_ITS ---
HPI HPI Comments History of Present Illness Details Kayleigh is a 68-year-old patient with history of renal artery stenosis as well as hypertension. She had prolonged multiple hospitalizations recently. She has history of CVA without any significant deficits. She closely follows up with vascular surgery. She is on home oxygen now. She denies any worsening shortness of breath, orthopnea, pedal edema, orthostatic symptoms, hematuria or fever. She does not take any nonsteroidal anti-inflammatories. Her BP is still high in the mornings. REPLACED BY [facility] Medical History (Updated 12/14/23 @ 14:47 by Vikram Bateman MD) Adrenal insufficiency RSV (respiratory syncytial virus infection) Atelectasis Hypercalciuria Hypogammaglobulinemia Vasomotor rhinitis Osteoporosis GERD (gastroesophageal reflux disease) HLD (hyperlipidemia) HTN (hypertension) History of CVA (cerebrovascular accident) Chronic cough Seropositive rheumatoid arthritis Chronic rheumatic arthritis Chronic respiratory failure COPD (chronic obstructive pulmonary disease) case management patient Cystic fibrosis carrier Surgical History Hx of shoulder surgery History of surgery Family History Son Cystic fibrosis Social History Household Members: None Alcohol intake: current Alcohol intake frequency: holidays/special occasions only Patient Tobacco Use Status: Former Tobacco user Tobacco use type: Cigarette Cigarettes Per Day: 10 Years Smoked: 20 e-Cigarette/Vaping Use: Never Used Vital Signs 12/28/23 10:48 Height 5 ft 3 in Weight 167 lb BMI 29.6 BP 90/50 L Blood Pressure Location Lt brachial Position Sitting Pulse 82 Pulse Source Pulse Oximeter Physical Exam Vital Signs: Last Vital Signs Pulse 82 12/28/23 10:48 BP 90/50 L 12/28/23 10:48 BMI result Body Mass Index 29.6 Const General: comfortable and no acute distress Orientation/consciousness: patient oriented x3 HEENT Head: Yes normocephalic Mouth: Normal oral and palatal mucosa present Eyes EOM: EOMs intact bilaterally Neck Neck: Yes supple Resp Auscultation: clear to auscultation bilaterally Cardio Jugular venous distension: no JVD Rate: regular rate GI Palpation (GI): Soft to palpation Auscultation: normal bowel sounds General: Yes no CVA tenderness Back/Spine/Pelvis Back: no CVA tenderness Skin General skin exam: no rashes or lesions noted Neuro General: patient oriented x3 and moves all extremities Extrem General: Yes no pedal edema Assessment & Plan Assessment & Plan (1) HTN (hypertension): Code(s): I10 - Essential (primary) hypertension Qualifiers: Hypertension type: renovascular hypertension Qualified Code(s): I15.0 - Renovascular hypertension Plan Kayleigh has peripheral arterial disease as well as renal artery stenosis. She has longstanding hypertension. Her renal functions have been stable. She tries to be on a low-sodium diet. She avoids nonsteroidal anti-inflammatories. There is no indication for any renal angiogram, angioplasty or stenting of the renal artery now. She could continue on her current medication regimen for now but I asked her to take both the BP medications in the evening. She will be closely followed up in our office for continued optimal care. Answered all questions. Coding Level of Care Code Est Pt Level 3 (85411) Diagnoses Renovascular hypertension I15.0 Hypertension type: renovascular hypertension Results Reviewed Nephrology Results: Hgb 9.0 g/dl (12.0-16.0) L 12/13/23 WBC 9.2 X10*3/uL (4.8-10.8) 12/13/23 Plt Count 302 X10*3/uL (160-400) 12/13/23 Sodium 143 mmol/L (135-145) 12/13/23 Potassium 3.6 mmol/L (3.3-5.1) 12/13/23 Chloride 93 mmol/L (96-108) L 12/13/23 Carbon Dioxide 35 mmol/L (22-29) H 12/13/23 BUN 12 mg/dL (9-16) 12/13/23 Creatinine 0.72 mg/dL (0.5-1.4) 12/13/23 Calcium 10.1 mg/dL (8.4-10.2) 12/13/23
[2023-12-28 10:48] VITALS: BP 90/50; PULSE 82; BMI 29.6
== END 2023-12-28 11:35 | disposition home or self-care (01) ==
PROVIDERS: PCP Internal Medicine; Visit Provider Internal Medicine Nephrology
DX: I15.0 Renovascular hypertension (principal)
CPT/HCPCS: 99213

== ENCOUNTER → 2023-12-28 10:27 | Outpatient (BNVA) | payer MEDICARE, MEDICAID, SELFPAY | PROVIDERS: PCP Internal Medicine; Visit Provider Internal Medicine Nephrology ==

== ENCOUNTER 2023-12-28 11:25 | Outpatient (REF) | payer MEDICARE, MEDICAID, SELFPAY | END 2023-12-28 11:26 | disposition home or self-care (01) | LOC: HO.HKASLDS 11:25 | PROVIDERS: Visit Provider Internal Medicine Nephrology | DX: I15.0 Renovascular hypertension (principal) | CPT/HCPCS: 99212 ==

== ENCOUNTER 2023-12-28 11:29 | Outpatient (REF) | payer MEDICARE, MEDICAID, SELFPAY | END 2023-12-28 11:30 | disposition home or self-care (01) | LOC: HO.HKASLDS 11:29 | PROVIDERS: Visit Provider Internal Medicine Nephrology | DX: Z13.89 Encounter for screening for other disorder (principal) ==

== ENCOUNTER 2024-02-28 13:24 | Outpatient (AMB) | payer MEDICARE, MEDICAID, SELFPAY ==
[2024-02-28 13:33] VITALS: PULSE 91; O2SAT 98; BMI 29.2
--- NOTE | 2024-02-28 13:33 | A.OFFVIS_ITS ---
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 She has been using the oxygen with good effect. On room air at rest she is down to 87%. When she wears the oxygen at 2 L pulse increases to 94%. She continues to have issues with wheezing and shortness of breath mainly in the morning. She does use her Anoro daily. She felt better when she uses Trelegy in the past. She does not like to use steroids but they seem to help her wheezing specially that in the morning. Therefore, I will switch her back to trelegy as she failed Anoro. She continues uses CPAP with CPAP therapy continues to be affecting beneficial. She uses a nasal pillow mask and it works well. She uses the CPAP more than 4 hours a night. The major issue is that the patient needs increased portability with oxygen. A portable tanks are not providing with enough portability in order for her to do her activities outside of the home. She cannot carry multiple attacks of significant arthritic disease due to the fact that she does have marked arthritis. She continues to have issues with wheezing and shortness of breath mainly in the morning. She does use her Anoro daily. She felt better when she uses Trelegy in the past. She does not like to use steroids but they seem to help her wheezing specially that in the morning. Therefore, I will switch her back to trelegy as she failed Anoro. She continues uses CPAP with CPAP therapy continues to be affecting beneficial. She uses a nasal pillow mask and it works well. She uses the CPAP more than 4 hours a night. The major issue is that the patient needs increased portability with oxygen. A portable tanks are not providing with enough portability in order for her to do her activities outside of the home. She cannot carry multiple attacks of significant arthritic disease due to the fact that she does have marked arthritis. Therefore, the patient needs to get a portable oxygen concentrator through [facility]. We will submit the proper paperwork in start the process for her to be able to get a battery operated portable oxygen concentrator. 01/15/2023 the patient is here for pulmonary follow-up visit. Overall she doing relatively well from a respiratory status. She does have chest congestion and nasal congestion in the morning after using her CPAP. But otherwise clears up after that. She does have the oxygen that she can use with activity. She also uses the oxygen at nighttime with her CPAP. Her CPAP therapy continues to be affecting beneficial and she does use it for more than 4 hours a night. She was wondering about the hypoglossal nerve stimulator. I advised her against considering that option in the meantime the patient has been using her respiratory therapy with good effect. Recently she had blood work including her IgG levels that were found to be low and also a CBC with evidence of microcytosis. The patient has had history of B12 deficiency in the past. Therefore, she is going to go back to using multivitamins with B complex and will have repeat blood work in a couple months. Hopefully her IgG levels improved and her MCV also improves. Patient also may benefit from a hematological evaluation. She continues use the Trelegy inhaler with good effect. No need for prednisone at this time which is reassuring. 07/15/2023 the patient is here for hospital follow-up visit. The patient recently was hospitalized at [facility] for shoulder surgery. The surgery went well but apparently after she was having issues with respiratory distress. There was suspicion of aspiration pneumonitis. The patient did have to use oxygen. She was also kept in the hospital given antibiotics and also I respiratory therapy treatments. The patient also had a CT scan of the chest demonstrating some new pulmonary nodules that will need follow-up. She continues to struggle with her breathing. Still requiring between 2-3 L with activity. Prior to that she was is using her oxygen at nighttime with her PAP therapy. We did go for brief walking oximetry in the patient did desaturate very quickly at rest and did make up to 3 L with activity. She has a hard time caring the oxygen tanks because her shoulder surgery. I did ask for small trial E for her to get from her [employer] company in order for her to be able to carry her oxygen. Will plan to start her on prednisone and also get an x-ray prior to the next visit. She should follow-up in 3-4 weeks. 08/05/2023 the patient is here for a pulmonary follow-up visit. The patient is feeling a little better. She still has significant pain from her shoulder surgery. She has been using her oxygen. The oxygen therapy has been affecting beneficial. Although is very difficult for her to carry the oxygen outside of the home because of her shoulder. For the most part she stays in her house. She still desaturates and she still needs to continues use her oxygen. She did undergo a repeat chest x-ray which I did review with her and we compared to her chest x-rays from [facility]. There is interval improvement in the bibasilar opacities which is reassuring. Also to note the patient was admitted to the hospital again at [facility] with atrial fibrillation with RVR. This is new onset AFib for her. She was seen by Cardiology. She was initially placed on Eliquis and also amiodarone. The dose of amiodarone has subsequently decreased. No evidence of any worsening shortness of breath which is reassuring. 12/07/2023 the patient has a telehealth visit today. Apparently she was sick with RSV back in October where she spent several weeks in the hospital. She did require ICU level of care. She was not high-flow. She was then transferred to an acute rehab most likely because of ongoing respiratory failure. The patient there spent about another 2-3 weeks. Subsequently after that she was discharged home on some prednisone she just finished the last week. She started developing dizziness, nausea vomiting, malaise. She feels very sleepy. Denies any worsening of the breathing although she is short of breath with activity. She has been using her oxygen with good effect. Will go ahead and give her some Zofran for her nausea and vomiting will start her back on 20 mg of prednisone for this suspicion of adrenal insufficiency secondary to her multiple wakes up prednisone likely high dose. The patient will start on the 20 mg twice a day for the 1st day then 20 mg daily. Once she feels better she needs to come in for blood work including a venous gas to make sure that his CO2 is within the normal ranges. If the patient worsens she knows she needs to go to the ER in view of her significant comorbidities. 12/13/2023 the patient has a follow-up visit today. We had a telehealth visit just last week. The patient was having significant adverse effects from withdrawal from prednisone. Likely developing secondary adrenal insufficiency. the patient did start prednisone she quickly start feeling better. She is up to 20 mg daily. She also underwent blood work demonstrating a critically low potassium of 2.8 which we repleted with oral supplement. In addition to that the patient was noted to be anemic with hemoglobin down to 8.8. We did repeat her blood work today appears that her potassium is back to normal and her hemoglobin is a little better up to 9. therefore it is reassuring. The patient has been using her oxygen with good effect. In addition to that the patient has been hypomanic. She is here with her sister. She is acting strangely and not keeping her boundaries. Explained to the sister that is likely all the prednisone. Will going to quickly try to decrease it down to 10 mg daily. She can continue on that dose. When she follows up in the coming weeks we can work on decreasing her prednisone further. In the meantime she would benefit from an endocrinology evaluation for adrenal insufficiency. I will make a referral at this time. 02/28/2024 the patient is here for a pulmonary follow-up visit. She is still struggling with the prednisone. She has been able to cut down slowly down to 7 mg. She does have an appointment with endocrinology to assess her for adrenal insufficiency. The patient would like to come off though she knows she does not feel good when she comes off completely. The patient will continue to cut down by 1 mg every 2 weeks. I did send her enough medications to the pharmacy and she should have an appointment with endocrinology soon. The patient is also having hard time caring the oxygen tanks. She has significant facilities and difficulty walking therefore using the oxygen tanks are very difficult. I did do a 6 minute walk test the patient did great. She did require oxygen at 3 L pulse with activity. Even at rest the patient does desaturate down to 88% and therefore she should continue with 2 L pulse at rest or 2 L continuous at home. Will submit a new prescription for portable oxygen concentrator to improve the portability the patient. [facility] Medical History (Updated 12/14/23 @ 14:47 by Vikram Bateman MD) Adrenal insufficiency RSV (respiratory syncytial virus infection) Atelectasis Hypercalciuria Hypogammaglobulinemia Vasomotor rhinitis Osteoporosis GERD (gastroesophageal reflux disease) HLD (hyperlipidemia) HTN (hypertension) History of CVA (cerebrovascular accident) Chronic cough Seropositive rheumatoid arthritis Chronic rheumatic arthritis Chronic respiratory failure COPD (chronic obstructive pulmonary disease) case management patient Cystic fibrosis carrier Surgical History Hx of shoulder surgery History of surgery Family History Son Cystic fibrosis Social History Household Members: None Alcohol intake: current Alcohol intake frequency: holidays/special occasions only Patient Tobacco Use Status: Former Tobacco user Tobacco use type: Cigarette Cigarettes Per Day: 10 Years Smoked: 20 e-Cigarette/Vaping Use: Never Used Review of Systems Const Reports difficulty sleeping, Denies frequent falls, Reports headache(s), Denies lethargy and Denies malaise ENT Denies change in voice, Reports dizziness, Reports headache(s), Denies mouth pain, Reports nasal congestion, Reports nasal discharge, Reports post nasal drip and Denies tongue swelling Card Denies chest pain and Reports dyspnea on exertion Resp Reports cough, Reports dyspnea on exertion and Reports wheezing GI Reports nausea and Reports vomiting Musc Reports arthralgias, Reports joint swelling and Reports limited range of motion Skin/Breast Denies rash Neuro Reports dizziness, Denies frequent falls and Reports headache(s) Psych Denies no additional complaints Sergey/Lymph Denies easy bleeding and Denies lymphadenopathy Aller/Immun Denies tongue swelling and Reports wheezing Physical Exam Vital Signs: Last Vital Signs Pulse 91 02/28/24 13:33 Pulse Ox 98 02/28/24 13:33 Oxygen Delivery Method Room Air 02/28/24 13:33 BMI result Body Mass Index 29.2 Const General: comfortable and alert HEENT Head: Yes atraumatic General nose exam: Abnormal external nose present and Nasal discharge present Eyes Pupils: Equal, round and reactive pupils present Neck Neck: Yes normal visual inspection, Yes full ROM and Yes no lymphadenopathy Chest Chest palpation & inspection: normal inspection of the chest Resp Effort & Inspection: normal respiratory effort Auscultation: no wheezes and diminished lung sounds Cardio Rate: regular rate Rhythm: regular rhythm Heart sounds: S1 normal heart sound present and S2 normal heart sound present GI Palpation (GI): Soft to palpation and nontender Auscultation: normal bowel sounds General: Yes no CVA tenderness Back/Spine/Pelvis Back: no CVA tenderness Skin General skin exam: rashes and/or lesions noted Neuro Cranial nerves: Yes Equal, round and reactive pupils present Extrem General: No clubbing and No cyanosis Office Procedures 6 Minute Walk Time:: 20:46 SPO2 % at rest: 88 Pulse at rest: 89 Supplemental Oxygen: desaturated to 88% on RA at rest, placed on 2L pulse improving pox 94%, then ambulated and increase to 3L/pulse maintaining pox 91% with activity 80450 - 6 Minute Walk Assessment & Plan Assessment & Plan (1) Adrenal insufficiency: Code(s): E27.40 - Unspecified adrenocortical insufficiency Category: Medical (2) Chronic respiratory failure: Code(s): J96.10 - Chronic respiratory failure, unspecified whether with hypoxia or hypercapnia Category: Medical Qualifiers: Respiratory failure complication: hypoxia Qualified Code(s): J96.11 - Chronic respiratory failure with hypoxia (3) COPD (chronic obstructive pulmonary disease) case management patient: Code(s): J44.9 - Chronic obstructive pulmonary disease, unspecified Category: Medical (4) Cystic fibrosis carrier: Code(s): Z14.1 - Cystic fibrosis carrier Category: Medical (5) Chronic cough: Code(s): R05.3 - Chronic cough Category: Medical (6) Vasomotor rhinitis: Code(s): J30.0 - Vasomotor rhinitis Category: Medical (7) Hypogammaglobulinemia: Code(s): D80.1 - Nonfamilial hypogammaglobulinemia Category: Medical (8) Atelectasis: Comment: better Code(s): J98.11 - Atelectasis Category: Medical (9) Anemia: Code(s): D64.9 - Anemia, unspecified Category: Medical Qualifiers: Anemia type: unspecified type Qualified Code(s): D64.9 - Anemia, unspecified Plan decrease Prednisone 7mg->decrease by 1mg every 2 weeks start Trazodone for sleep continue Trelegy daily BUdesonide nebs JANNETH as needed Revision: oxygen 2L/pulse at rest, 3L/pulse with activity. Requesting a battery operated portable oxygen concentrator (POC) to improve portability outside of the home. She had shoulder surgery and the oxygen tanks are hurting her shoulder. ipratropium nasal spray Continue CPAP at night with O2 ISS/deep breathing exercises F/U 4 months Medications: New prednisone 5 mg PO DAILY 30 tabs 11RF 30 days prednisone 3 mg (3 x 1 mg) PO DAILY 90 tabs 3RF 30 days trazodone 100 mg (2 x 50 mg) PO BEDTIME PRN 60 tabs 4RF sleep 30 days Coding Level of Care Code Est Pt Level 4 (30300) Diagnoses Adrenal insufficiency E27.40 Chronic respiratory failure with hypoxia J96.11 Respiratory failure complication: hypoxia COPD (chronic obstructive pulmonary disease) case management patient J44.9 Cystic fibrosis carrier Z14.1 Chronic cough R05.3 Vasomotor rhinitis J30.0 Hypogammaglobulinemia D80.1 Atelectasis J98.11 Anemia, unspecified type D64.9 Anemia type: unspecified type CPT Codes Coding ([id number]) Time Spent (min) 18
[2024-02-28 20:46] VITALS: PULSE 89; O2SAT 88
== END 2024-02-28 14:06 | disposition home or self-care (01) ==
PROVIDERS: PCP Internal Medicine; Visit Provider Hospitalist
DX: E27.40 Unspecified adrenocortical insufficiency (principal); J96.11 Chronic respiratory failure with hypoxia; J44.9 Chronic obstructive pulmonary disease, unspecified; Z14.1 Cystic fibrosis carrier; R05.3 Chronic cough; J30.0 Vasomotor rhinitis; D80.1 Nonfamilial hypogammaglobulinemia; J98.11 Atelectasis; D64.9 Anemia, unspecified
CPT/HCPCS: 94618; 99214

== ENCOUNTER → 2024-02-28 13:24 | Outpatient (BNVA) | payer MEDICARE, MEDICAID, SELFPAY | PROVIDERS: PCP Internal Medicine; Visit Provider Hospitalist | DX: J44.9 Chronic obstructive pulmonary disease, unspecified (principal); R05.3 Chronic cough; E27.40 Unspecified adrenocortical insufficiency; J96.11 Chronic respiratory failure with hypoxia; J30.0 Vasomotor rhinitis; J98.11 Atelectasis; D80.1 Nonfamilial hypogammaglobulinemia; D64.9 Anemia, unspecified; Z14.1 Cystic fibrosis carrier | CPT/HCPCS: 94618; 99212 ==

== ENCOUNTER 2024-03-21 11:04 | Outpatient (AMB) | payer MEDICARE, MEDICAID, SELFPAY ==
--- NOTE | 2024-03-21 11:48 | HO.NEPHOV ---
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 She had been having fluctuant BP readings as well as lower back pain. She has history of CVA without any significant deficits. She closely follows up with vascular surgery. She is on home oxygen now. She denies any worsening shortness of breath, orthopnea, pedal edema, orthostatic symptoms, hematuria or fever. She does not take any nonsteroidal anti-inflammatories. She has been having edema with mild SOB which improved with increased diuretics. Her BP medication has been adjusted due to low readings( reduced metoprolol and ARB was put on hold) [facility] Medical History (Updated 03/21/24 @ 12:09 by Vikram Bateman MD) Adrenal insufficiency RSV (respiratory syncytial virus infection) Atelectasis Hypercalciuria Hypogammaglobulinemia Vasomotor rhinitis Osteoporosis GERD (gastroesophageal reflux disease) HLD (hyperlipidemia) HTN (hypertension) History of CVA (cerebrovascular accident) Chronic cough Seropositive rheumatoid arthritis Chronic rheumatic arthritis Chronic respiratory failure COPD (chronic obstructive pulmonary disease) case management patient Cystic fibrosis carrier Surgical History Hx of shoulder surgery History of surgery Family History Son Cystic fibrosis Social History Household Members: None Alcohol intake: current Alcohol intake frequency: holidays/special occasions only Patient Tobacco Use Status: Former Tobacco user Tobacco use type: Cigarette Cigarettes Per Day: 10 Years Smoked: 20 e-Cigarette/Vaping Use: Never Used Physical Exam Vital Signs: Last Vital Signs Pulse 80 03/21/24 11:49 BP 130/60 03/21/24 11:49 Pulse Ox 92 03/21/24 11:49 Oxygen Delivery Method Room Air 03/21/24 11:49 BMI result Body Mass Index 29.8 Const General: comfortable and no acute distress Orientation/consciousness: patient oriented x3 HEENT Head: Yes normocephalic Mouth: Normal oral and palatal mucosa present Eyes EOM: EOMs intact bilaterally Neck Neck: Yes supple Resp Auscultation: clear to auscultation bilaterally Cardio Jugular venous distension: no JVD Rate: regular rate GI Palpation (GI): Soft to palpation Auscultation: normal bowel sounds General: Yes no CVA tenderness Back/Spine/Pelvis Back: no CVA tenderness Skin General skin exam: no rashes or lesions noted Neuro General: patient oriented x3 and moves all extremities Results Reviewed Nephrology Results: Hgb 9.0 g/dl (12.0-16.0) L 12/13/23 WBC 9.2 X10*3/uL (4.8-10.8) 12/13/23 Plt Count 302 X10*3/uL (160-400) 12/13/23 Sodium 143 mmol/L (135-145) 12/13/23 Potassium 3.6 mmol/L (3.3-5.1) 12/13/23 Chloride 93 mmol/L (96-108) L 12/13/23 Carbon Dioxide 35 mmol/L (22-29) H 12/13/23 BUN 12 mg/dL (9-16) 12/13/23 Creatinine 0.72 mg/dL (0.5-1.4) 12/13/23 Calcium 10.1 mg/dL (8.4-10.2) 12/13/23 Assessment & Plan Assessment & Plan (1) HTN (hypertension): Code(s): I10 - Essential (primary) hypertension Category: Medical Qualifiers: Hypertension type: renovascular hypertension Qualified Code(s): I15.0 - Renovascular hypertension (2) Renal artery stenosis: Comment: Follows with Nephrology at [facility]( Dr Bateman) Code(s): I70.1 - Atherosclerosis of renal artery Category: Medical Plan Kayleigh has peripheral arterial disease as well as renal artery stenosis. She has longstanding hypertension. Her renal functions have been stable. She is thought to have adrenal insufficiency and has a follow up with Endocrinology. She is off ARB and on a reduced dose of beta annalise. She tries to be on a low-sodium diet. She avoids nonsteroidal anti-inflammatories. There is no indication for any renal angiogram, angioplasty or stenting of the renal artery now. She was given K supplements which was finished yesterday. I ordered follow up labs today. She will be closely followed up in our office for continued optimal care. Answered all questions. Orders: Orders Blood Urea Nitrogen Today I15.0 - Renovascular hypertension, I70.1 - Atherosclerosis of renal artery Creatinine Today I15.0 - Renovascular hypertension, I70.1 - Atherosclerosis of renal artery Electrolytes Today I15.0 - Renovascular hypertension, I70.1 - Atherosclerosis of renal artery Coding Level of Care Code Est Pt Level 4 (64301) Diagnoses Renovascular hypertension I15.0 Hypertension type: renovascular hypertension Renal artery stenosis I70.1
[2024-03-21 11:49] VITALS: BP 130/60; PULSE 80; O2SAT 92; BMI 29.8
== END 2024-03-21 12:14 | disposition home or self-care (01) ==
PROVIDERS: PCP Internal Medicine; Visit Provider Internal Medicine Nephrology
DX: I15.0 Renovascular hypertension (principal); I70.1 Atherosclerosis of renal artery
CPT/HCPCS: 99214

== ENCOUNTER → 2024-03-21 11:04 | Outpatient (BNVA) | payer MEDICARE, MEDICAID, SELFPAY | PROVIDERS: PCP Internal Medicine; Visit Provider Internal Medicine Nephrology | DX: I15.0 Renovascular hypertension (principal); I70.1 Atherosclerosis of renal artery | CPT/HCPCS: 36415; 80051; 82310; 82565; 84520; 99212 ==

== ENCOUNTER 2024-03-21 12:17 | Outpatient (REF) | payer MEDICARE, MEDICAID, SELFPAY ==
[2024-03-21 18:37] LABS: Anion Gap 14 (12-20); Blood Urea Nitrogen 8 mg/dL (9-16); Calcium 9.1 mg/dL (8.4-10.2); Carbon Dioxide 33 mmol/L (22-29); Chloride 98 mmol/L (96-108); Estimated Glomerular Filt Rate > 60; Sodium 141 mmol/L (135-145)
== END 2024-03-21 12:18 | disposition home or self-care (01) ==
LOC: HO.HKASLDS 12:17
PROVIDERS: Visit Provider Internal Medicine Nephrology
DX: Z13.89 Encounter for screening for other disorder (principal)
CPT/HCPCS: 36415; 80051; 82310; 82565; 84520

== ENCOUNTER 2024-04-25 13:18 | Outpatient (AMB) | payer MEDICARE, MEDICAID, SELFPAY ==
[2024-04-25 13:23] VITALS: BP 126/58; PULSE 87; O2SAT 96; BMI 28.7
--- NOTE | 2024-04-25 13:23 | A.OFFVIS_ITS ---
Vital Signs 04/25/24 13:23 Height 5 ft 3 in Weight 162 lb BMI 28.7 BP 126/58 L Blood Pressure Location Rt brachial Position Sitting Pulse 87 Pulse Source Pulse Oximeter Pulse Oximetry (%) 96 Oxygen Delivery Method Room Air Comment 3 Liters Oxygen([employer]) Intake Visit Reasons: COPD Colorist Required: No Allergies levofloxacin [Levaquin] Allergy (Severe, Verified 04/25/24 13:27) vomiting HPI Comments Details: Patient is 68 y/o woman with a history of COPD O2 dependent in addition to all cystic fibrosis carrier. She has been using the oxygen with good effect. On room air at rest she is down to 87%. When she wears the oxygen at 2 L pulse increases to 94%. She continues to have issues with wheezing and shortness of breath mainly in the morning. She does use her Anoro daily. She felt better when she uses Trelegy in the past. She does not like to use steroids but they seem to help her wheezing specially that in the morning. Therefore, I will switch her back to trelegy as she failed Anoro. She continues uses CPAP with CPAP therapy continues to be affecting beneficial. She uses a nasal pillow mask and it works well. She uses the CPAP more than 4 hours a night. The major issue is that the patient needs increased portability with oxygen. A portable tanks are not providing with enough portability in order for her to do her activities outside of the home. She cannot carry multiple attacks of significant arthritic disease due to the fact that she does have marked arthritis. She continues to have issues with wheezing and shortness of breath mainly in the morning. She does use her Anoro daily. She felt better when she uses Trelegy in the past. She does not like to use steroids but they seem to help her wheezing specially that in the morning. Therefore, I will switch her back to trelegy as she failed Anoro. She continues uses CPAP with CPAP therapy continues to be affecting beneficial. She uses a nasal pillow mask and it works well. She uses the CPAP more than 4 hours a night. The major issue is that the patient needs increased portability with o xygen. A portable tanks are not providing with enough portability in order for her to do her activities outside of the home. She cannot carry multiple attacks of significant arthritic disease due to the fact that she does have marked arthritis. Therefore, the patient needs to get a portable oxygen concentrator through [facility]. We will submit the proper paperwork in start the process for her to be able to get a battery operated portable oxygen concentrator. 01/15/2023 the patient is here for pulmonary follow-up visit. Overall she doing relatively well from a respiratory status. She does have chest congestion and nasal congestion in the morning after using her CPAP. But otherwise clears up after that. She does have the oxygen that she can use with activity. She also uses the oxygen at nighttime with her CPAP. Her CPAP therapy continues to be affecting beneficial and she does use it for more than 4 hours a night. She was wondering about the hypoglossal nerve stimulator. I advised her against considering that option in the meantime the patient has been using her respiratory therapy with good effect. Recently she had blood work including her IgG levels that were found to be low and also a CBC with evidence of microcytosis. The patient has had history of B12 deficiency in the past. Therefore, she is going to go back to using multivitamins with B complex and will have repeat blood work in a couple months. Hopefully her IgG levels improved and her MCV also improves. Patient also may benefit from a hematological evaluation. She continues use the Trelegy inhaler with good effect. No need for prednisone at this time which is reassuring. 07/15/2023 the patient is here for hospital follow-up visit. The patient recently was hospitalized at [facility] for shoulder surgery. The surgery went well but apparently after she was having issues with respiratory distress. There was suspicion of aspiration pneumonitis. The patient did have to use oxygen. She was also kept in the hospital given antibiotics and also I respiratory therapy treatments. The patient also had a CT scan of the chest demonstrating some new pulmonary nodules that will need follow-up. She continues to struggle with her breathing. Still requiring between 2-3 L with activity. Prior to that she was is using her oxygen at nighttime with her PAP therapy. We did go for brief walking oximetry in the patient did desaturate very quickly at rest and did make up to 3 L with activity. She has a hard time caring the oxygen tanks because her shoulder surgery. I did ask for small trial E for her to get from her [employer] company in order for her to be able to carry her oxygen. Will plan to start her on prednisone and also get an x-ray prior to the next visit. She should follow-up in 3-4 weeks. 08/05/2023 the patient is here for a pulmonary follow-up visit. The patient is feeling a little better. She still has significant pain from her shoulder surgery. She has been using her oxygen. The oxygen therapy has been affecting beneficial. Although is very difficult for her to carry the oxygen outside of the home because of her shoulder. For the most part she stays in her house. She still desaturates and she still needs to continues use her oxygen. She did undergo a repeat chest x-ray which I did review with her and we compared to her chest x-rays from [facility]. There is interval improvement in the bibasilar opacities which is reassuring. Also to note the patient was admitted to the hospital again at [facility] with atrial fibrillation with RVR. This is new onset AFib for her. She was seen by Cardiology. She was initially placed on Eliquis and also amiodarone. The dose of amiodarone has subsequently decreased. No evidence of any worsening shortness of breath which is reassuring. 12/07/2023 the patient has a telehealth visit today. Apparently she was sick with RSV back in October where she spent several weeks in the hospital. She did require ICU level of care. She was not high-flow. She was then transferred to an acute rehab most likely because of ongoing respiratory failure. The patient there spent about another 2-3 weeks. Subsequently after that she was discharged home on some prednisone she just finished the last week. She started developing dizziness, nausea vomiting, malaise. She feels very sleepy. Denies any worsening of the breathing although she is short of breath with activity. She has been using her oxygen with good effect. Will go ahead and give her some Zofran for her nausea and vomiting will start her back on 20 mg of prednisone for this suspicion of adrenal insufficiency secondary to her multiple wakes up prednisone likely high dose. The patient will start on the 20 mg twice a day for the 1st day then 20 mg daily. Once she feels better she needs to come in for blood work including a venous gas to make sure that his CO2 is within the normal ranges. If the patient worsens she knows she needs to go to the ER in view of her significant comorbidities. 12/13/2023 the patient has a follow-up visit today. We had a telehealth visit just last week. The patient was having significant adverse effects from withdrawal from prednisone. Likely developing secondary adrenal insufficiency. the patient did start prednisone she quickly start feeling better. She is up to 20 mg daily. She also underwent blood work demonstrating a critically low potassium of 2.8 which we repleted with oral supplement. In addition to that the patient was noted to be anemic with hemoglobin down to 8.8. We did repeat her blood work today appears that her potassium is back to normal and her hemoglobin is a little better up to 9. therefore it is reassuring. The patient has been using her oxygen with good effect. In addition to that the patient has been hypomanic. She is here with her sister. She is acting strangely and not keeping her boundaries. Explained to the sister that is likely all the prednisone. Will going to quickly try to decrease it down to 10 mg daily. She can continue on that dose. When she follows up in the coming weeks we can work on decreasing her prednisone further. In the meantime she would benefit from an endocrinology evaluation for adrenal insufficiency. I will make a referral at this time. 02/28/2024 the patient is here for a pulmonary follow-up visit. She is still struggling with the prednisone. She has been able to cut down slowly down to 7 mg. She does have an appointment with endocrinology to assess her for adrenal insufficiency. The patient would like to come off though she knows she does not feel good when she comes off completely. The patient will continue to cut down by 1 mg every 2 weeks. I did send her enough medications to the pharmacy and she should have an appointment with endocrinology soon. The patient is also having hard time caring the oxygen tanks. She has significant facilities and difficulty walking therefore using the oxygen tanks are very difficult. I did do a 6 minute walk test the patient did great. She did require oxygen at 3 L pulse with activity. Even at rest the patient does desaturate down to 88% and therefore she should continue with 2 L pulse at rest or 2 L continuous at home. Will submit a new prescription for portable oxygen concentrator to improve the portability the patient. 04/25/2024 the patient is here for pulmonary follow-up visit. Overall the patient is feeling little better. She was weaned off the prednisone completely. Subsequently after that the patient started developing worsening abdominal discomfort causing to have difficulty breathing. She went to the [facility]. She is noted to have significant lower extremity edema with weeping of her legs. She has been on Lasix. No evidence of any cellulitis although she is high risk. She did have a bedside echo although very limited. She will see her rooter operator soon and should have a repeat echocardiogram soon. Indeed she may have a component of cor pulmonale with significant lower extremity edema. She will need additional diuresis at this time. She has issues with the kidneys and therefore needs to be careful with diuresis. But her kidney function was normal the last time those checked. Therefore, will place her on additional Lasix if the patient will have blood work again. She will have her cortisol level rechecked. She also got her portable oxygen concentrator. This has been affecting beneficial. Is given her better portability outside the home. While in the home she does use her concentrator because she does get more from the continues oxygen. [facility] Medical History (Updated 04/25/24 @ 22:08 by Luke Luna MD) Lower extremity edema Adrenal insufficiency RSV (respiratory syncytial virus infection) Atelectasis Hypercalciuria Hypogammaglobulinemia Vasomotor rhinitis Osteoporosis GERD (gastroesophageal reflux disease) HLD (hyperlipidemia) HTN (hypertension) History of CVA (cerebrovascular accident) Chronic cough Seropositive rheumatoid arthritis Chronic rheumatic arthritis Chronic respiratory failure COPD (chronic obstructive pulmonary disease) case management patient Cystic fibrosis carrier Surgical History Hx of shoulder surgery History of surgery Family History Son Cystic fibrosis Social History Household Members: None Alcohol intake: current Alcohol intake frequency: holidays/special occasions only Patient Tobacco Use Status: Former Tobacco user Tobacco use type: Cigarette Cigarettes Per Day: 10 Years Smoked: 20 e-Cigarette/Vaping Use: Never Used Review of Systems Const Reports difficulty sleeping, Denies frequent falls, Reports headache(s), Denies lethargy and Denies malaise ENT Denies change in voice, Reports dizziness, Reports headache(s), Denies mouth pain, Reports nasal congestion, Reports nasal discharge, Reports post nasal drip and Denies tongue swelling Card Denies chest pain, Reports leg edema and Reports dyspnea on exertion Resp Reports cough, Reports dyspnea on exertion and Reports wheezing GI Reports nausea and Reports vomiting Musc Reports arthralgias, Reports joint swelling and Reports limited range of motion Skin/Breast Denies rash Neuro Reports dizziness, Denies frequent falls and Reports headache(s) Psych Denies no additional complaints Sergey/Lymph Denies easy bleeding and Denies lymphadenopathy Aller/Immun Denies tongue swelling and Reports wheezing Physical Exam Vital Signs: Last Vital Signs Pulse 87 04/25/24 13:23 BP 126/58 L 04/25/24 13:23 Pulse Ox 96 04/25/24 13:23 Oxygen Delivery Method Room Air 04/25/24 13:23 BMI result Body Mass Index 28.7 Const General: comfortable and alert HEENT Head: Yes atraumatic General nose exam: Abnormal external nose present and Nasal discharge present Eyes Pupils: Equal, round and reactive pupils present Neck Neck: Yes normal visual inspection, Yes full ROM and Yes no lymphadenopathy Chest Chest palpation & inspection: normal inspection of the chest Resp Effort & Inspection: normal respiratory effort Auscultation: no wheezes and diminished lung sounds Cardio Rate: regular rate Rhythm: regular rhythm Heart sounds: S1 normal heart sound present and S2 normal heart sound present GI Palpation (GI): Soft to palpation and nontender Auscultation: normal bowel sounds General: Yes no CVA tenderness Back/Spine/Pelvis Back: no CVA tenderness Skin General skin exam: rashes and/or lesions noted Neuro Cranial nerves: Yes Equal, round and reactive pupils present Extrem General: No clubbing, No cyanosis and Yes edema Results Reviewed Results Reviewed: personally reviewed CXR [facility], no evidence of CHF Assessment & Plan Assessment & Plan (1) Adrenal insufficiency: Code(s): E27.40 - Unspecified adrenocortical insufficiency Category: Medical (2) Chronic respiratory failure: Code(s): J96.10 - Chronic respiratory failure, unspecified whether with hypoxia or hypercapnia Category: Medical Qualifiers: Respiratory failure complication: hypoxia Qualified Code(s): J96.11 - Chronic respiratory failure with hypoxia (3) COPD (chronic obstructive pulmonary disease) case management patient: Code(s): J44.9 - Chronic obstructive pulmonary disease, unspecified Category: Medical (4) Cystic fibrosis carrier: Code(s): Z14.1 - Cystic fibrosis carrier Category: Medical (5) Chronic cough: Code(s): R05.3 - Chronic cough Category: Medical (6) Vasomotor rhinitis: Code(s): J30.0 - Vasomotor rhinitis Category: Medical (7) Hypogammaglobulinemia: Code(s): D80.1 - Nonfamilial hypogammaglobulinemia Category: Medical (8) Atelectasis: Comment: better Code(s): J98.11 - Atelectasis Category: Medical (9) Anemia: Code(s): D64.9 - Anemia, unspecified Category: Medical Qualifiers: Anemia type: unspecified type Qualified Code(s): D64.9 - Anemia, unspecified (10) Lower extremity edema: Code(s): R60.0 - Localized edema Category: Medical Plan Prednisone completed Trazodone for sleep continue Trelegy daily BUdesonide nebs JANNETH as needed Revision: oxygen 2L/pulse at rest, 3L/pulse with activity. Now with POC. ipratropium nasal spray Continue CPAP at night with O2 ISS/deep breathing exercises additional lasix bloodwork requested for next week Should get repeat ECHO from cardiology ?cor pulmonale F/U 4 months Orders: Orders Basic Metabolic Panel Today J44.9 - Chronic obstructive pulmonary disease, unspecified B Type Natriuretic Peptide Today J44.9 - Chronic obstructive pulmonary disease, unspecified Cortisol Random Today J44.9 - Chronic obstructive pulmonary disease, unspecified Medications: New furosemide (Lasix) 20 mg PO DAILY PRN 30 tabs 0RF edema 30 days Coding Level of Care Code Est Pt Level 5 (10529) Diagnoses Adrenal insufficiency E27.40 Chronic respiratory failure with hypoxia J96.11 Respiratory failure complication: hypoxia COPD (chronic obstructive pulmonary disease) case management patient J44.9 Cystic fibrosis carrier Z14.1 Chronic cough R05.3 Vasomotor rhinitis J30.0 Hypogammaglobulinemia D80.1 Atelectasis J98.11 Anemia, unspecified type D64.9 Anemia type: unspecified type Lower extremity edema R60.0 Time Spent (min) 35
== END 2024-04-25 13:47 | disposition home or self-care (01) ==
PROVIDERS: PCP Internal Medicine; Visit Provider Hospitalist
DX: J44.9 Chronic obstructive pulmonary disease, unspecified (principal); E27.40 Unspecified adrenocortical insufficiency; J96.11 Chronic respiratory failure with hypoxia; Z14.1 Cystic fibrosis carrier; R05.3 Chronic cough; J30.0 Vasomotor rhinitis; D80.1 Nonfamilial hypogammaglobulinemia; J98.11 Atelectasis; D64.9 Anemia, unspecified; R60.0 Localized edema
CPT/HCPCS: 99214

== ENCOUNTER → 2024-04-25 13:18 | Outpatient (BNVA) | payer MEDICARE, MEDICAID, SELFPAY | PROVIDERS: PCP Internal Medicine; Visit Provider Hospitalist | DX: J44.9 Chronic obstructive pulmonary disease, unspecified (principal); Z14.1 Cystic fibrosis carrier; J96.11 Chronic respiratory failure with hypoxia; J30.0 Vasomotor rhinitis; J98.11 Atelectasis; E27.40 Unspecified adrenocortical insufficiency; D80.1 Nonfamilial hypogammaglobulinemia; D64.9 Anemia, unspecified; R60.0 Localized edema; R05.3 Chronic cough | CPT/HCPCS: 99212 ==

== ENCOUNTER → 2024-05-01 08:43 | Outpatient (BNVA) | payer MEDICARE, MEDICAID, SELFPAY | PROVIDERS: PCP Internal Medicine; Visit Provider Anesthesiology ==

== ENCOUNTER 2024-05-18 09:40 | Outpatient (AMB) | payer MEDICARE, MEDICAID, SELFPAY ==
--- NOTE | 2024-05-18 09:49 | HO.NEPHOV_ITS ---
Vital Signs 05/18/24 09:50 Height 5 ft 3 in Weight 160 lb BMI 28.3 BP 130/80 Blood Pressure Location Lt brachial Position Sitting Pulse 95 Pulse Source Pulse Oximeter Pulse Oximetry (%) 97 Oxygen Delivery Method Nasal Cannula Intake Visit Reasons: BP concerns/ Leg swelling/ Conf [employer] Educator Required: No Accompanied by: Self / Same As Patient Allergies levofloxacin [Levaquin] Allergy (Severe, Verified 05/18/24 09:53) vomiting HPI Comments Details: Kayleigh is a 68-year-old patient with history of renal artery stenosis as well as hypertension. She recently had a fall and was in hospital. She had contrast at that time which did not cause any ROCK. She is on home O2 all the time. She has history of CVA without any significant deficits. She closely follows up with vascular surgery. She denies any worsening shortness of breath, orthopnea, pedal edema, orthostatic symptoms, hematuria or fever. She does not take any nonsteroidal anti-inflammatories. She has been having edema with mild SOB which improved with increased diuretics. [facility] Medical History (Updated 04/25/24 @ 22:08 by Luke Luna MD) Lower extremity edema Adrenal insufficiency RSV (respiratory syncytial virus infection) Atelectasis Hypercalciuria Hypogammaglobulinemia Vasomotor rhinitis Osteoporosis GERD (gastroesophageal reflux disease) HLD (hyperlipidemia) HTN (hypertension) History of CVA (cerebrovascular accident) Chronic cough Seropositive rheumatoid arthritis Chronic rheumatic arthritis Chronic respiratory failure COPD (chronic obstructive pulmonary disease) case management patient Cystic fibrosis carrier Surgical History Hx of shoulder surgery History of surgery Family History Son Cystic fibrosis Social History Household Members: None Alcohol intake: current Alcohol intake frequency: holidays/special occasions only Patient Tobacco Use Status: Former Tobacco user Tobacco use type: Cigarette Cigarettes Per Day: 10 Years Smoked: 20 e-Cigarette/Vaping Use: Never Used Physical Exam Vital Signs: Last Vital Signs Pulse 95 05/18/24 09:50 BP 130/80 05/18/24 09:50 Pulse Ox 97 05/18/24 09:50 Oxygen Delivery Method Nasal Cannula 08/01/24 09:50 BMI result Body Mass Index 28.3 Const General: comfortable and no acute distress Orientation/consciousness: patient oriented x3 HEENT Head: Yes normocephalic Mouth: Normal oral and palatal mucosa present Eyes EOM: EOMs intact bilaterally Neck Neck: Yes supple Resp Auscultation: clear to auscultation bilaterally Cardio Jugular venous distension: no JVD Rate: regular rate GI Palpation (GI): Soft to palpation Auscultation: normal bowel sounds General: Yes no CVA tenderness Back/Spine/Pelvis Back: no CVA tenderness Skin General skin exam: no rashes or lesions noted Neuro General: patient oriented x3 and moves all extremities Results Reviewed Nephrology Results: Sodium 141 mmol/L (135-145) 03/21/24 Potassium 4.0 mmol/L (3.3-5.1) 03/21/24 Chloride 98 mmol/L (96-108) 03/21/24 Carbon Dioxide 33 mmol/L (22-29) H 03/21/24 BUN 8 mg/dL (9-16) L 03/21/24 Creatinine 0.60 mg/dL (0.5-1.4) 03/21/24 Calcium 9.1 mg/dL (8.4-10.2) 03/21/24 Assessment & Plan Assessment & Plan (1) HTN (hypertension): Code(s): I10 - Essential (primary) hypertension Category: Medical Qualifiers: Hypertension type: renovascular hypertension Qualified Code(s): I15.0 - Renovascular hypertension (2) Renal artery stenosis: Comment: Follows with Nephrology at [facility]( Dr Bateman) Code(s): I70.1 - Atherosclerosis of renal artery Category: Medical Plan Kayleigh has peripheral arterial disease as well as renal artery stenosis. She has longstanding hypertension. Her renal functions have been stable. She is thought to have adrenal insufficiency and has a follow up with Endocrinology. She tries to be on a low-sodium diet. She avoids nonsteroidal anti- inflammatories. There is no indication for any renal angiogram, angioplasty or stenting of the renal artery now. She will be closely followed up in our office for continued optimal care. Answered all questions. Orders: Orders Creatinine Today I15.0 - Renovascular hypertension, I70.1 - Atherosclerosis of renal artery Blood Urea Nitrogen Today I15.0 - Renovascular hypertension, I70.1 - Atherosclerosis of renal artery Electrolytes Today I15.0 - Renovascular hypertension, I70.1 - Atherosclerosis of renal artery Coding Level of Care Code Est Pt Level 4 (17961) Diagnoses Renovascular hypertension I15.0 Hypertension type: renovascular hypertension Renal artery stenosis I70.1
[2024-05-18 09:50] VITALS: BP 130/80; PULSE 95; O2SAT 97; BMI 28.3
== END 2024-05-18 10:52 | disposition home or self-care (01) ==
PROVIDERS: PCP Internal Medicine; Visit Provider Internal Medicine Nephrology
DX: I15.0 Renovascular hypertension (principal); I70.1 Atherosclerosis of renal artery
CPT/HCPCS: 99214

== ENCOUNTER → 2024-05-18 09:40 | Outpatient (BNVA) | payer MEDICARE, MEDICAID, SELFPAY | PROVIDERS: PCP Internal Medicine; Visit Provider Internal Medicine Nephrology | DX: I70.1 Atherosclerosis of renal artery (principal); I15.0 Renovascular hypertension | CPT/HCPCS: 99212 ==

== ENCOUNTER 2024-05-19 11:03 | Outpatient (AMB) | payer MEDICARE, MEDICAID, SELFPAY ==
--- NOTE | 2024-05-19 11:09 | MHC.OFFVIS ---
Vital Signs 05/19/24 11:15 Height 5 ft 3 in Weight 157 lb 6.561 oz BMI 27.9 BP 132/70 Blood Pressure Location Lt brachial Position Sitting Pulse 92 Pulse Source Pulse Oximeter Pulse Oximetry (%) 97 Oxygen Delivery Method Room Air Intake Visit Reasons: RA/LM Intake Note: Patient presents for RA. Allergies levofloxacin [Levaquin] Allergy (Severe, Verified 05/19/24 11:13) vomiting Medication List - Last Reconciled 05/19/24 by Chantale Mason MD albuterol sulfate 90 mcg/actuation 2 puffs inhalation Q6H PRN albuterol sulfate 2.5 mg (3 mL) inhalation Q6H PRN 30 days apixaban (Eliquis) 5 mg PO BID atorvastatin 40 mg PO BEDTIME baclofen mg PO budesonide 0.5 mg (2 mL) inhalation DAILY 30 days cholecalciferol (vitamin D3) 50 mcg PO DAILY clopidogrel 75 mg PO DAILY CPAP (CPAP Machine/Device) As directed diltiazem HCl CD 240 mg PO DAILY docusate sodium 100 mg PO BID PRN duloxetine 30 mg PO BID ferrous sulfate 325 mg PO DAILY gjrvzzlpdie-ebntzgfgy-jenzbkji 100-62.5-25 mcg (Trelegy Ellipta) 1 inh inhalation DAILY folic acid 1 mg PO DAILY furosemide (Lasix) 20 mg PO DAILY PRN 30 days furosemide 20 mg PO DAILY guaifenesin ER (Mucus Relief ER) 600 mg PO Q12H insulin lispro (Humalog KwikPen (U-100) Insulin) 1 sliding scale dose subcut USEASDIRECTD ipratropium-albuterol 0.5 mg-3 mg(2.5 mg base)/3 mL mL inhalation QID Kevzara (sarilumab) 200 mg (1.14 mL) subcut Q2W NS losartan 25 mg PO DAILY magnesium oxide 400 mg PO DAILY melatonin mg PO BEDTIME metoprolol succinate ER 25 mg PO DAILY multivitamin (Daily-Juan tablet) 1 tab PO DAILY nebulizers As directed ondansetron HCl 4 mg PO Q8H PRN 14 days Oxygen Home Use As directed pantoprazole 40 mg PO BID phenytoin sodium extended (Dilantin) 30 mg PO DAILY prednisone 1 mg PO DAILY pregabalin 75 mg PO BID sennosides (senna) 8.6 mg PO DAILY sulfadiazine 1 g PO BID trazodone 100 mg (2 x 50 mg) PO BEDTIME PRN 30 days umeclidinium 62.5 mcg/actuation 1 inh inhalation DAILY HPI Comments Details: This is a 68-year-old female with seropositive RA who presents for follow-up. She was last seen by Dr. Tompkins 04/2023. Patient states that she has had numerous hospitalizations since then. She states that in June she had a right shoulder rotator cuff surgery, she had complications, she had some hypoxia followed by RSV infection, she then went to rehab. She was also admitted to the hospital with of her legs as well as cellulitis. Last month she fell, broke her back, was admitted to the hospital briefly. She remains on Kevzara every other week and sulfasalazine. She self reduced her sulfasalazine from 2 g daily to 1 g daily. She states that her RA is well controlled Most recent history by Dr. Tompkins 04/2023: This patient with rheumatoid arthritis returns for evaluation. She had been seeing [facility]. She has remained on sulfasalazine taking 1 g b.i.d. and Kevzara 200 mg subcutaneously every 2 weeks. With that the joints are reasonably comfortable. She has quite a bit of pain in the right shoulder area. Apparently there was rotator cuff damage there when she fractured the clavicle years ago. She says on May 03 she is supposed to have shoulder surgery, I would presume a replacement by Dr. Dias. She gets occasional hand numbness but no persistent paresthesias. There is occasionally some interphalangeal joint pains. She has some lower back and knee pain with rising up from a chair. She has COPD and occasionally needs oxygen. She is said to have a neuropathy and takes duloxetine and Lyrica. She has bilateral leg numbness below the knees but has pain in that region at night. The cause of the neuropathy is not clear. [facility] Medical History Afib Lower extremity edema Adrenal insufficiency RSV (respiratory syncytial virus infection) Atelectasis Hypercalciuria Hypogammaglobulinemia Vasomotor rhinitis Osteoporosis GERD (gastroesophageal reflux disease) HLD (hyperlipidemia) HTN (hypertension) History of CVA (cerebrovascular accident) Chronic cough Seropositive rheumatoid arthritis Chronic rheumatic arthritis Chronic respiratory failure COPD (chronic obstructive pulmonary disease) case management patient Cystic fibrosis carrier Surgical History Hx of shoulder surgery History of surgery Family History Son Cystic fibrosis Social History Household Members: None Alcohol intake: current Alcohol intake frequency: holidays/special occasions only Patient Tobacco Use Status: Former Tobacco user Tobacco use type: Cigarette Cigarettes Per Day: 10 Years Smoked: 20 e-Cigarette/Vaping Use: Never Used Review of Systems Musc Reports back pain, Denies joint swelling and Denies stiffness Physical Exam Vital Signs: Last Vital Signs Pulse 92 05/19/24 11:15 BP 132/70 05/19/24 11:15 Pulse Ox 97 05/19/24 11:15 Oxygen Delivery Method Room Air 05/19/24 11:15 BMI result Body Mass Index 27.9 Const General: cooperative, healthy appearing and comfortable Nutritional Appearance: overweight Orientation/consciousness: patient oriented x3 Limitations: ambulation with cane HEENT Head: Yes normocephalic and Yes atraumatic Mouth: moist mucous membranes Resp Other: On 3 L of oxygen by nasal cannula Effort & Inspection: normal respiratory effort and able to speak in complete sentences Cardio Rate: regular rate Heart sounds: Murmur heart sound present systolic Skin Other: Multiple superficial bruises on forearms Neuro General: patient oriented x3 Extrem Other: Osteoarthritic changes of both hands with no active synovitis 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 This is her 1st visit with me. Patient self lowered her sulfasalazine from 2 g a day to 1 g a day. Continues on Kevzara. Doing well overall with no active synovitis. Continue Kevzara 200 mg every other week and sulfasalazine 1 g daily. Labs before next visit in 4 months (2) Long-term use of immunosuppressant medication: Code(s): Z79.60 - [facility] (current) use of unspecified immunomodulators and immunosuppressants Category: Medical Plan: Monitor safety lab (3) Osteoporosis: Comment: follows with endocrine at [facility] Code(s): M81.0 - Age-related osteoporosis without current pathological fracture Category: Medical Qualifiers: Osteoporosis type: age-related Presence of current pathological fracture: unspecified Qualified Code(s): M81.0 - Age-related osteoporosis without current pathological fracture Plan I spent 22 minutes reviewing patient's chart, evaluating patient, ordering diagnostic workup, counseling patient and documenting in the chart Orders: Orders Complete Blood Count Auto Diff 4 Months M05.9 - Rheumatoid arthritis with rheumatoid factor, unspecified Erythrocyte Sedimentation Rate 4 Months M05.9 - Rheumatoid arthritis with rheumatoid factor, unspecified Hepatitis A,B,C Profile 4 Months Z11.59 - Encounter for screening for other viral diseases Comprehensive Met. Panel 4 Months M05.9 - Rheumatoid arthritis with rheumatoid factor, unspecified C Reactive Protein 4 Months M05.9 - Rheumatoid arthritis with rheumatoid factor, unspecified T Spot TB 4 Months Z11.7 - Encounter for testing for latent tuberculosis infection Medications: Refilled Kevzara (sarilumab) 200 mg (1.14 mL) subcut Q2W 2.28 mL 3RF NS M05.9 - Rheumatoid arthritis with rheumatoid factor, unspecified Coding Level of Care Code Est Pt Level 4 (47306) Diagnoses Seropositive rheumatoid arthritis M05.9 Long-term use of immunosuppressant medication Z79.60 Age related osteoporosis, unspecified pathological fracture presence M81.0 Osteoporosis type: age-related Presence of current pathological fracture: unspecified
[2024-05-19 11:15] VITALS: BP 132/70; PULSE 92; O2SAT 97; BMI 27.9
== END 2024-05-19 11:55 | disposition home or self-care (01) ==
PROVIDERS: PCP Internal Medicine; Visit Provider Student in an Organized Health Care Education/Training Program
DX: M05.79 Rheumatoid arthritis with rheumatoid factor of multiple sites without organ or systems involvement (principal); Z79.60 Long term (current) use of unspecified immunomodulators and immunosuppressants; M81.0 Age-related osteoporosis without current pathological fracture
CPT/HCPCS: 99214

== ENCOUNTER → 2024-05-19 11:03 | Outpatient (BNVA) | payer MEDICARE, MEDICAID, SELFPAY | PROVIDERS: PCP Internal Medicine; Visit Provider Student in an Organized Health Care Education/Training Program | DX: M05.9 Rheumatoid arthritis with rheumatoid factor, unspecified (principal); M81.0 Age-related osteoporosis without current pathological fracture; Z79.60 Long term (current) use of unspecified immunomodulators and immunosuppressants | CPT/HCPCS: 99212 ==

== ENCOUNTER 2024-06-27 08:39 | Outpatient (AMB) | payer MEDICARE, MEDICAID, SELFPAY ==
[2024-06-27 09:02] VITALS: BP 122/60; PULSE 86; O2SAT 96; BMI 28.5
--- NOTE | 2024-06-27 09:02 | A.OFFVIS_ITS ---
Vital Signs 06/27/24 09:02 Height 5 ft 3 in Weight 160 lb 14.999 oz BMI 28.5 BP 122/60 Blood Pressure Location Rt brachial Position Sitting Pulse 86 Pulse Source Pulse Oximeter Pulse Oximetry (%) 96 Oxygen Delivery Method Room Air Comment 2 Liters Oxygen([facility]) Intake Visit Reasons: copd Account Information Clerk Required: No Allergies levofloxacin [Levaquin] Allergy (Severe, Verified 06/27/24 09:05) vomiting HPI Comments Details: Patient is 69 y/o woman with a history of COPD O2 dependent in addition to all cystic fibrosis carrier. She has been using the oxygen with good effect. On room air at rest she is down to 87%. When she wears the oxygen at 2 L pulse increases to 94%. She continues to have issues with wheezing and shortness of breath mainly in the morning. She does use her Anoro daily. She felt better when she uses Trelegy in the past. She does not like to use steroids but they seem to help her wheezing specially that in the morning. Therefore, I will switch her back to trelegy as she failed Anoro. She continues uses CPAP with CPAP therapy continues to be affecting beneficial. She uses a nasal pillow mask and it works well. She uses the CPAP more than 4 hours a night. The major issue is that the patient needs increased portability with oxygen. A portable tanks are not providing with enough portability in order for her to do her activities outside of the home. She cannot carry multiple attacks of significant arthritic disease due to the fact that she does have marked arthritis. She continues to have issues with wheezing and shortness of breath mainly in the morning. She does use her Anoro daily. She felt better when she uses Trelegy in the past. She does not like to use steroids but they seem to help her wheezing specially that in the morning. Therefore, I will switch her back to trelegy as she failed Anoro. She continues uses CPAP with CPAP therapy continues to be affecting beneficial. She uses a nasal pillow mask and it works well. She uses the CPAP more than 4 hours a night. The major issue is that the patient needs increased portability with oxygen. A portable tanks are not providing with enough portability in order for her to do her activities outside of the home. She cannot carry multiple attacks of significant arthritic disease due to the fact that she does have marked arthritis. Therefore, the patient needs to get a portable oxygen concentrator through [facility]. We will submit the proper paperwork in start the process for her to be able to get a battery operated portable oxygen concentrator. 01/15/2023 the patient is here for pulmonary follow-up visit. Overall she doing relatively well from a respiratory status. She does have chest congestion and nasal congestion in the morning after using her CPAP. But otherwise clears up after that. She does have the oxygen that she can use with activity. She also uses the oxygen at nighttime with her CPAP. Her CPAP therapy continues to be affecting beneficial and she does use it for more than 4 hours a night. She was wondering about the hypoglossal nerve stimulator. I advised her against considering that option in the meantime the patient has been using her respiratory therapy with good effect. Recently she had blood work including her IgG levels that were found to be low and also a CBC with evidence of microcytosis. The patient has had history of B12 deficiency in the past. Therefore, she is going to go back to using multivitamins with B complex and w ill have repeat blood work in a couple months. Hopefully her IgG levels improved and her MCV also improves. Patient also may benefit from a hematological evaluation. She continues use the Trelegy inhaler with good effect. No need for prednisone at this time which is reassuring. 07/15/2023 the patient is here for hospital follow-up visit. The patient recently was hospitalized at [facility] for shoulder surgery. The surgery went well but apparently after she was having issues with respiratory distress. There was suspicion of aspiration pneumonitis. The patient did have to use oxygen. She was also kept in the hospital given antibiotics and also I respiratory therapy treatments. The patient also had a CT scan of the chest demonstrating some new pulmonary nodules that will need follow-up. She continues to struggle with her breathing. Still requiring between 2-3 L with activity. Prior to that she was is using her oxygen at nighttime with her PAP therapy. We did go for brief walking oximetry in the patient did desaturate very quickly at rest and did make up to 3 L with activity. She has a hard time caring the oxygen tanks because her shoulder surgery. I did ask for small trial E for her to get from her [employer] company in order for her to be able to carry her oxygen. Will plan to start her on prednisone and also get an x-ray prior to the next visit. She should follow-up in 3-4 weeks. 08/05/2023 the patient is here for a pulmonary follow-up visit. The patient is feeling a little better. She still has significant pain from her shoulder surgery. She has been using her oxygen. The oxygen therapy has been affecting beneficial. Although is very difficult for her to carry the oxygen outside of the home because of her shoulder. For the most part she stays in her house. She still desaturates and she still needs to continues use her oxygen. She did undergo a repeat chest x-ray which I did review with her and we compared to her chest x-rays from [facility]. There is interval improvement in the bibasilar opacities which is reassuring. Also to note the patient was admitted to the hospital again at [facility] with atrial fib rillation with RVR. This is new onset AFib for her. She was seen by Cardiology. She was initially placed on Eliquis and also amiodarone. The dose of amiodarone has subsequently decreased. No evidence of any worsening shortness of breath which is reassuring. 12/07/2023 the patient has a telehealth visit today. Apparently she was sick with RSV back in October where she spent several weeks in the hospital. She did require ICU level of care. She was not high-flow. She was then transferred to an acute rehab most likely because of ongoing respiratory failure. The patient there spent about another 2-3 weeks. Subsequently after that she was discharged home on some prednisone she just finished the last week. She started developing dizziness, nausea vomiting, malaise. She feels very sleepy. Denies any worsening of the breathing although she is short of breath with activity. She has been using her oxygen with good effect. Will go ahead and give her some Zofran for her nausea and vomiting will start her back on 20 mg of prednisone for this suspicion of adrenal insufficiency secondary to her multiple wakes up prednisone likely high dose. The patient will start on the 20 mg twice a day for the 1st day then 20 mg daily. Once she feels better she needs to come in for blood work including a venous gas to make sure that his CO2 is within the normal ranges. If the patient worsens she knows she needs to go to the ER in view of her significant comorbidities. 12/13/2023 the patient has a follow-up visit today. We had a telehealth visit just last week. The patient was having significant adverse effects from withdrawal from prednisone. Likely developing secondary adrenal insufficiency. the patient did start prednisone she quickly start feeling better. She is up to 20 mg daily. She also underwent blood work demonstrating a critically low potassium of 2.8 which we repleted with oral supplement. In addition to that the patient was noted to be anemic with hemoglobin down to 8.8. We did repeat her blood work today appears that her potassium is back to normal and her hemoglobin is a little better up to 9. therefore it is reassuring. The patient has been using her oxygen with good effect. In addition to that the patient has been hypomanic. She is here with her sister. She is acting strangely and not keeping her boundaries. Explained to the sister that is likely all the prednisone. Will going to quickly try to decrease it down to 10 mg daily. She can continue on that dose. When she follows up in the coming weeks we can work on decreasing her prednisone further. In the meantime she would benefit from an endocrinology evaluation for adrenal insufficiency. I will make a referral at this time. 02/28/2024 the patient is here for a pulmonary follow-up visit. She is still struggling with the prednisone. She has been able to cut down slowly down to 7 mg. She does have an appointment with endocrinology to assess her for adr enal insufficiency. The patient would like to come off though she knows she does not feel good when she comes off completely. The patient will continue to cut down by 1 mg every 2 weeks. I did send her enough medications to the pharmacy and she should have an appointment with endocrinology soon. The patient is also having hard time caring the oxygen tanks. She has significant facilities and difficulty walking therefore using the oxygen tanks are very difficult. I did do a 6 minute walk test the patient did great. She did require oxygen at 3 L pulse with activity. Even at rest the patient does desaturate down to 88% and therefore she should continue with 2 L pulse at rest or 2 L continuous at home. Will submit a new prescription for portable oxygen concentrator to improve the portability the patient. 04/25/2024 the patient is here for pulmonary follow-up visit. Overall the patient is feeling little better. She was weaned off the prednisone completely. Subsequently after that the patient started developing worsening abdominal discomfort causing to have difficulty breathing. She went to the [facility]. She is noted to have significant lower extremity edema with weeping of her legs. She has been on Lasix. No evidence of any cellulitis although she is high risk. She did have a bedside echo although very limited. She will see her power system operator soon and should have a repeat echocardiogram soon. Indeed she may have a component of cor pulmonale with significant lower extremity edema. She will need additional diuresis at this time. She has issue s with the kidneys and therefore needs to be careful with diuresis. But her kidney function was normal the last time those checked. Therefore, will place her on additional Lasix if the patient will have blood work again. She will have her cortisol level rechecked. She also got her portable oxygen concentrator. This has been affecting beneficial. Is given her better portability outside the home. While in the home she does use her concentrator because she does get more from the continues oxygen. 06/27/2024 the patient is here for a pulmonary follow-up visit. Overall she is doing well. The patient continues use the oxygen regularly. She is wondering if she can come off. I do believe that from a respiratory status she is doing better on current therapy. The patient is responding well to the Trelegy. She has been off the prednisone which is reassuring. She will be following up with endocrinology soon. In the meantime the patient will benefit from pulmonary rehabilitation. Will go ahead and request pulmonary function studies and start pulmonary rehabilitation at [facility]. The patient prefers therapy was closer to home. [facility] Medical History Afib Lower extremity edema Adrenal insufficiency RSV (respiratory syncytial virus infection) Atelectasis Hypercalciuria Hypogammaglobulinemia Vasomotor rhinitis Osteoporosis GERD (gastroesophageal reflux disease) HLD (hyperlipidemia) HTN (hypertension) History of CVA (cerebrovascular accident) Chronic cough Seropositive rheumatoid arthritis Chronic rheumatic arthritis Chronic respiratory failure COPD (chronic obstructive pulmonary disease) case management patient Cystic fibrosis carrier Surgical History Hx of shoulder surgery History of surgery Family History Son Cystic fibrosis Social History Household Members: None Alcohol intake: current Alcohol intake frequency: holidays/special occasions only Patient Tobacco Use Status: Former Tobacco user Tobacco use type: Cigarette Cigarettes Per Day: 10 Years Smoked: 20 e-Cigarette/Vaping Use: Never Used Review of Systems Const Reports difficulty sleeping, Denies frequent falls, Reports headache(s), Denies lethargy and Denies malaise ENT Denies change in voice, Reports dizziness, Reports headache(s), Denies mouth pain, Reports nasal congestion, Reports nasal discharge, Reports post nasal drip and Denies tongue swelling Card Denies chest pain, Reports leg edema and Reports dyspnea on exertion Resp Reports cough, Reports dyspnea on exertion and Reports wheezing GI Reports nausea and Reports vomiting Musc Reports arthralgias, Reports joint swelling and Reports limited range of motion Skin/Breast Denies rash Neuro Reports dizziness, Denies frequent falls and Reports headache(s) Psych Denies no additional complaints Sergey/Lymph Denies easy bleeding and Denies lymphadenopathy Aller/Immun Denies tongue swelling and Reports wheezing Physical Exam Vital Signs: Last Vital Signs Pulse 86 06/27/24 09:02 BP 122/60 06/27/24 09:02 Pulse Ox 96 06/27/24 09:02 Oxygen Delivery Method Room Air 06/27/24 09:02 BMI result Body Mass Index 28.5 Const General: comfortable and alert HEENT Head: Yes atraumatic General nose exam: Abnormal external nose present and Nasal discharge present Eyes Pupils: Equal, round and reactive pupils present Neck Neck: Yes normal visual inspection, Yes full ROM and Yes no lymphadenopathy Chest Chest palpation & inspection: normal inspection of the chest Resp Effort & Inspection: normal respiratory effort Auscultation: no wheezes and diminished lung sounds Cardio Rate: regular rate Rhythm: regular rhythm Heart sounds: S1 normal heart sound present and S2 normal heart sound present GI Palpation (GI): Soft to palpation and nontender Auscultation: normal bowel sounds General: Yes no CVA tenderness Back/Spine/Pelvis Back: no CVA tenderness Skin General skin exam: rashes and/or lesions noted Neuro Cranial nerves: Yes Equal, round and reactive pupils present Extrem General: No clubbing, No cyanosis and Yes edema Assessment & Plan Assessment & Plan (1) Chronic respiratory failure: Code(s): J96.10 - Chronic respiratory failure, unspecified whether with hypoxia or hypercapnia Category: Medical Qualifiers: Respiratory failure complication: hypoxia Qualified Code(s): J96.11 - Chronic respiratory failure with hypoxia (2) COPD (chronic obstructive pulmonary disease) case management patient: Code(s): J44.9 - Chronic obstructive pulmonary disease, unspecified Category: Medical (3) Cystic fibrosis carrier: Code(s): Z14.1 - Cystic fibrosis carrier Category: Medical (4) Chronic cough: Code(s): R05.3 - Chronic cough Category: Medical (5) Vasomotor rhinitis: Code(s): J30.0 - Vasomotor rhinitis Category: Medical (6) Hypogammaglobulinemia: Code(s): D80.1 - Nonfamilial hypogammaglobulinemia Category: Medical (7) Atelectasis: Comment: better Code(s): J98.11 - Atelectasis Category: Medical (8) Adrenal insufficiency: Code(s): E27.40 - Unspecified adrenocortical insufficiency Category: Medical (9) Anemia: Code(s): D64.9 - Anemia, unspecified Category: Medical Qualifiers: Anemia type: unspecified type Qualified Code(s): D64.9 - Anemia, unspecified Plan Trazodone for sleep continue Trelegy daily BUdesonide nebs JANNETH as needed oxygen 2L/pulse at rest, 3L/pulse with activity. Now with POC. ipratropium nasal spray Continue CPAP at night with O2 diuresis as tolerated CXR PFT [place] [facility] [place] Orders: Orders XR chest 2V Today J96.11 - Chronic respiratory failure with hypoxia PFT pulmonary function test Today Pulmonary Rehab Today J44.9 - Chronic obstructive pulmonary disease, unspecified Medications: Changed From [id number]-jjlhewpbh-dglldebu 100-62.5-25 mcg (Trelegy Ellipta) 1 inh inhalation DAILY To [id number]-ziwqwtkva-ckexdekn 100-62.5-25 mcg (Trelegy Ellipta) 1 inh inhalation DAILY 60 ea 11RF 30 days Coding Level of Care Code Est Pt Level 4 (98291) Complex EM visit Add On G2211 Diagnoses Chronic respiratory failure with hypoxia J96.11 Respiratory failure complication: hypoxia COPD (chronic obstructive pulmonary disease) case management patient J44.9 Cystic fibrosis carrier Z14.1 Chronic cough R05.3 Vasomotor rhinitis J30.0 Hypogammaglobulinemia D80.1 Atelectasis J98.11 Adrenal insufficiency E27.40 Anemia, unspecified type D64.9 Anemia type: unspecified type Time Spent (min) 17
== END 2024-06-27 09:26 | disposition home or self-care (01) ==
PROVIDERS: PCP Internal Medicine; Visit Provider Hospitalist
DX: J96.11 Chronic respiratory failure with hypoxia (principal); J44.9 Chronic obstructive pulmonary disease, unspecified; Z14.1 Cystic fibrosis carrier; R05.3 Chronic cough; J30.0 Vasomotor rhinitis; D80.1 Nonfamilial hypogammaglobulinemia; J98.11 Atelectasis; E27.40 Unspecified adrenocortical insufficiency; D64.9 Anemia, unspecified
CPT/HCPCS: 99214; G2211

== ENCOUNTER → 2024-06-27 08:39 | Outpatient (BNVA) | payer MEDICARE, MEDICAID, SELFPAY | PROVIDERS: PCP Internal Medicine; Visit Provider Hospitalist | DX: J96.11 Chronic respiratory failure with hypoxia (principal); Z14.1 Cystic fibrosis carrier; J44.9 Chronic obstructive pulmonary disease, unspecified; J30.0 Vasomotor rhinitis; J98.11 Atelectasis; R05.3 Chronic cough; D80.1 Nonfamilial hypogammaglobulinemia; E27.40 Unspecified adrenocortical insufficiency; D64.9 Anemia, unspecified | CPT/HCPCS: 99212 ==

== ENCOUNTER 2024-08-23 09:58 | Outpatient (REF) | payer MEDICARE, SELFPAY ==
[2024-08-23 08:26] VITALS: PULSE 73; RESP 16; O2SAT 93
--- NOTE | 2024-08-23 10:16 | PFT_ITS ---
Flows: FEV1: 67 % of predicted at 1.50 L FVC: 77 % of predicted at 2.23 L FEV1/FVC: 67 % Bronchodilator response: Present Volumes: Total lung capacity: 77 % of predicted at 3.80 L Residual volume: 88 % of predicted at 1.62 L Slow vital capacity: 71 % of predicted at 2.18 L Expiratory reserve volume: 59 % of predicted at 0.44 L Diffusion capacity: Mildly decreased Impression: Combined moderate obstructive and restrictive ventilatory defects with positive bronchodilator response. Decreased diffusion capacity suggests emphysema. MTDD
== END 2024-08-23 09:59 | disposition home or self-care (01) ==
LOC: HO.RESP 09:58
PROVIDERS: PCP Internal Medicine; Visit Provider Hospitalist
DX: J44.9 Chronic obstructive pulmonary disease, unspecified (principal); I15.0 Renovascular hypertension
CPT/HCPCS: 94010; 94640; 94727; 94729; 99212

== ENCOUNTER → 2024-08-23 10:16 | Outpatient (BNV) | payer MEDICARE, SELFPAY | PROVIDERS: PCP Internal Medicine; Visit Provider Internal Medicine Pulmonary Disease | DX: J44.9 Chronic obstructive pulmonary disease, unspecified (principal) | CPT/HCPCS: 94060; 94727; 94729 ==

== ENCOUNTER 2024-08-23 11:51 | Outpatient (AMB) | payer MEDICARE, MEDICAID, SELFPAY ==
--- NOTE | 2024-08-23 11:52 | HO.NEPHOV ---
Vital Signs 08/23/24 11:55 Height 5 ft 3 in Weight 153 lb 8 oz BMI 27.2 BP 110/50 L Blood Pressure Location Rt brachial Position Sitting Pulse 111 H Pulse Source Pulse Oximeter Intake Visit Reasons: 3 mon follow up-Conf [employer] Required: No Accompanied by: Self / Same As Patient Allergies levofloxacin [Levaquin] Allergy (Severe, Verified 08/23/24 11:55) vomiting HPI Comments Details: Kayleigh has history of renal artery stenosis as well as hypertension. She is on home O2 all the time. She has history of CVA without any significant deficits. She closely follows up with vascular surgery. She denies any worsening shortness of breath, orthopnea, pedal edema, orthostatic symptoms, hematuria or fever. She does not take any nonsteroidal anti-inflammatories. She has been having neuropathic symptoms. She gets intermittent low BP's after Diltiazem. Her recent K has been low and was prescribed K and Magnesium by cardiology. [facility] Medical History Afib Lower extremity edema Adrenal insufficiency RSV (respiratory syncytial virus infection) Atelectasis Hypercalciuria Hypogammaglobulinemia Vasomotor rhinitis Osteoporosis GERD (gastroesophageal reflux disease) HLD (hyperlipidemia) HTN (hypertension) History of CVA (cerebrovascular accident) Chronic cough Seropositive rheumatoid arthritis Chronic rheumatic arthritis Chronic respiratory failure COPD (chronic obstructive pulmonary disease) case management patient Cystic fibrosis carrier Surgical History Hx of shoulder surgery History of surgery Family History Son Cystic fibrosis Social History Household Members: None Alcohol intake: current Alcohol intake frequency: holidays/special occasions only Patient Tobacco Use Status: Former Tobacco user Tobacco use type: Cigarette Cigarettes Per Day: 10 Years Smoked: 20 e-Cigarette/Vaping Use: Never Used Review of Systems Const All systems reviewed & are unremarkable except as noted in HPI and below Physical Exam Vital Signs: Last Vital Signs Pulse 111 H 08/23/24 11:55 BP 110/50 L 08/23/24 11:55 BMI result Body Mass Index 27.2 Const General: comfortable and no acute distress Orientation/consciousness: patient oriented x3 HEENT Head: Yes normocephalic Mouth: Normal oral and palatal mucosa present Eyes EOM: EOMs intact bilaterally Neck Neck: Yes supple Resp Auscultation: clear to auscultation bilaterally Cardio Jugular venous distension: no JVD Rate: regular rate GI Palpation (GI): Soft to palpation Auscultation: normal bowel sounds General: Yes no CVA tenderness Back/Spine/Pelvis Back: no CVA tenderness Skin General skin exam: no rashes or lesions noted Neuro General: patient oriented x3 and moves all extremities Extrem General: Yes no pedal edema Assessment & Plan Assessment & Plan (1) Renovascular hypertension: Code(s): I15.0 - Renovascular hypertension Category: Medical Plan Kayleigh has peripheral arterial disease as well as renal artery stenosis. She has longstanding hypertension. Her renal functions have been stable. She is thought to have adrenal insufficiency and has a follow up with Endocrinology. She tries to be on a low-sodium diet. She avoids nonsteroidal anti-inflammatories. There is no indication for any renal angiogram, angioplasty or stenting of the renal artery now. She may benefit from changing dose of Diltiazem to 120 mg bid. She has K and Mag replacement. She will be closely followed up in our office for continued optimal care. Coding Level of Care Code Est Pt Level 4 (40315) Diagnoses Renovascular hypertension I15.0
[2024-08-23 11:55] VITALS: BP 110/50; PULSE 111; BMI 27.2
== END 2024-08-23 12:19 | disposition home or self-care (01) ==
LOC: HO.HKA 11:52
PROVIDERS: PCP Internal Medicine; Visit Provider Internal Medicine Nephrology
DX: I15.0 Renovascular hypertension (principal)
CPT/HCPCS: 99214

== ENCOUNTER 2024-09-08 10:02 | Outpatient (AMB) | payer MEDICARE, MEDICAID, SELFPAY ==
[2024-09-08 10:08] VITALS: BP 92/50; PULSE 80; O2SAT 93; BMI 27.9
--- NOTE | 2024-09-08 10:08 | MHC.OFFVIS ---
Vital Signs 09/08/24 10:08 Height 5 ft 3 in Weight 157 lb 10.088 oz BMI 27.9 BP 92/50 L Blood Pressure Location Lt brachial Position Sitting Pulse 80 Pulse Source Pulse Oximeter Pulse Oximetry (%) 93 Oxygen Delivery Method Nasal Cannula Oxygen Flow Rate 2 Intake Visit Reasons: COPD/PFT Follow Up Maintenance Machinist Required: No Allergies levofloxacin [Levaquin] Allergy (Severe, Verified 09/08/24 10:10) vomiting HPI Comments Details: Patient is 69 y/o woman with a history of COPD O2 dependent in addition to all cystic fibrosis carrier. She has been using the oxygen with good effect. On room air at rest she is down to 87%. When she wears the oxygen at 2 L pulse increases to 94%. She continues to have issues with wheezing and shortness of breath mainly in the morning. She does use her Anoro daily. She felt better when she uses Trelegy in the past. She does not like to use steroids but they seem to help her wheezing specially that in the morning. Therefore, I will switch her back to trelegy as she failed Anoro. She continues uses CPAP with CPAP therapy continues to be affecting beneficial. She uses a nasal pillow mask and it works well. She uses the CPAP more than 4 hours a night. The major issue is that the patient needs increased portability with oxygen. A portable tanks are not providing with enough portability in order for her to do her activities outside of the home. She cannot carry multiple attacks of significant arthritic disease due to the fact that she does have marked arthritis. She continues to have issues with wheezing and shortness of breath mainly in the morning. She does use her Anoro daily. She felt better when she uses Trelegy in the past. She does not like to use steroids but they seem to help her wheezing specially that in the morning. Therefore, I will switch her back to trelegy as she failed Anoro. She continues uses CPAP with CPAP therapy continues to be affecting beneficial. She uses a nasal pillow mask and it works well. She uses the CPAP more than 4 hours a night. The major issue is that the patient needs increased portability with oxygen. A portable tanks are not providing with enough portability in order for her to do her activities outside of the home. She cannot carry multiple attacks of significant arthritic disease due to the fact that she does have marked arthritis. Therefore, the patient needs to get a portable oxygen concentrator through [facility]. We will submit the proper paperwork in start the process for her to be able to get a battery operated portable oxygen concentrator. 01/15/2023 the patient is here for pulmonary follow-up visit. Overall she doing relatively well from a respiratory status. She does have chest congestion and nasal congestion in the morning after using her CPAP. But otherwise clears up after that. She does have the oxygen that she can use with activity. She also uses the oxygen at nighttime with her CPAP. Her CPAP therapy continues to be affecting beneficial and she does use it for more than 4 hours a night. She was wondering about the hypoglossal nerve stimulator. I advised her against considering that option in the meantime the patient has been using her respiratory therapy with good effect. Recently she had blood work including her IgG levels that were found to be low and also a CBC with evidence of microcytosis. The patient has had history of B12 deficiency in the past. Therefore, she is going to go back to using multivitamins with B complex and will have repeat blood work in a couple months. Hopefully her IgG levels improved and her MCV also improves. Patient also may benefit from a hematological evaluation. She continues use the Trelegy inhaler with good effect. No need for prednisone at this time which is reassuring. 07/15/2023 the patient is here for hospital follow-up visit. The patient recently was hospitalized at [facility] for shoulder surgery. The surgery went well but apparently after she was having issues with respiratory distress. There was suspicion of aspiration pneumonitis. The patient did have to use oxygen. She was also kept in the hospital given antibiotics and also I respiratory therapy treatments. The patient also had a CT scan of the chest demonstrating some new pulmonary nodules that will need follow-up. She continues to struggle with her breathing. Still requiring between 2-3 L with activity. Prior to that she was is using her oxygen at nighttime with her PAP therapy. We did go for brief walking oximetry in the patient did desaturate very quickly at rest and did make up to 3 L with activity. She has a hard time caring the oxygen tanks because her shoulder surgery. I did ask for small trial E for her to get from her [employer] in order for her to be able to carry her oxygen. Will plan to start her on prednisone and also get an x-ray prior to the next visit. She should follow-up in 3-4 weeks. 08/05/2023 the patient is here for a pulmonary follow-up visit. The patient is feeling a little better. She still has significant pain from her shoulder surgery. She has been using her oxygen. The oxygen therapy has been affecting beneficial. Although is very difficult for her to carry the oxygen outside of the home because of her shoulder. For the most part she stays in her house. She still desaturates and she still needs to continues use her oxygen. She did undergo a repeat chest x-ray which I did review with her and we compared to her chest x-rays from [facility]. There is interval improvement in the bibasilar opacities which is reassuring. Also to note the patient was admitted to the hospital again at [facility] with atrial fibrillation with RVR. This is new onset AFib for her. She was seen by Cardiology. She was initially placed on Eliquis and also amiodarone. The dose of amiodarone has subsequently decreased. No evidence of any worsening shortness of breath which is reassuring. 12/07/2023 the patient has a telehealth visit today. Apparently she was sick with RSV back in October where she spent several weeks in the hospital. She did require ICU level of care. She was not high-flow. She was then transferred to an acute rehab most likely because of ongoing respiratory failure. The patient there spent about another 2-3 weeks. Subsequently after that she was discharged home on some prednisone she just finished the last week. She started developing dizziness, nausea vomiting, malaise. She feels very sleepy. Denies any worsening of the breathing although she is short of breath with activity. She has been using her oxygen with good effect. Will go ahead and give her some Zofran for her nausea and vomiting will start her back on 20 mg of prednisone for this suspicion of adrenal insufficiency secondary to her multiple wakes up prednisone likely high dose. The patient will start on the 20 mg twice a day for the 1st day then 20 mg daily. Once she feels better she needs to come in for blood work including a venous gas to make sure that his CO2 is within the normal ranges. If the patient worsens she knows she needs to go to the ER in view of her significant comorbidities. 12/13/2023 the patient has a follow-up visit today. We had a telehealth visit just last week. The patient was having significant adverse effects from withdrawal from prednisone. Likely developing secondary adrenal insufficiency. the patient did start prednisone she quickly start feeling better. She is up to 20 mg daily. She also underwent blood work demonstrating a critically low potassium of 2.8 which we repleted with oral supplement. In addition to that the patient was noted to be anemic with hemoglobin down to 8.8. We did repeat her blood work today appears that her potassium is back to normal and her hemoglobin is a little better up to 9. therefore it is reassuring. The patient has been using her oxygen with good effect. In addition to that the patient has been hypomanic. She is here with her sister. She is acting strangely and not keeping her boundaries. Explained to the sister that is likely all the prednisone. Will going to quickly try to decrease it down to 10 mg daily. She can continue on that dose. When she follows up in the coming weeks we can work on decreasing her prednisone further. In the meantime she would benefit from an endocrinology evaluation for adrenal insufficiency. I will make a referral at this time. 02/28/2024 the patient is here for a pulmonary follow-up visit. She is still struggling with the prednisone. She has been able to cut down slowly down to 7 mg. She does have an appointment with endocrinology to assess her for adrenal insufficiency. The patient would like to come off though she knows she does not feel good when she comes off completely. The patient will continue to cut down by 1 mg every 2 weeks. I did send her enough medications to the pharmacy and she should have an appointment with endocrinology soon. The patient is also having hard time caring the oxygen tanks. She has significant facilities and difficulty walking therefore using the oxygen tanks are very difficult. I did do a 6 minute walk test the patient did great. She did require oxygen at 3 L pulse with activity. Even at rest the patient does desaturate down to 88% and therefore she should continue with 2 L pulse at rest or 2 L continuous at home. Will submit a new prescription for portable oxygen concentrator to improve the portability the patient. 04/25/2024 the patient is here for pulmonary follow-up visit. Overall the patient is feeling little better. She was weaned off the prednisone completely. Subsequently after that the patient started developing worsening abdominal discomfort causing to have difficulty breathing. She went to the [facility]. She is noted to have significant lower extremity edema with weeping of her legs. She has been on Lasix. No evidence of any cellulitis although she is high risk. She did have a bedside echo although very limited. She will see her agile qa tester soon and should have a repeat echocardiogram soon. Indeed she may have a component of cor pulmonale with significant lower extremity edema. She will need additional diuresis at this time. She has issues with the kidneys and therefore needs to be careful with diuresis. But her kidney function was normal the last time those checked. Therefore, will place her on additional Lasix if the patient will have blood work again. She will have her cortisol level rechecked. She also got her portable oxygen concentrator. This has been affecting beneficial. Is given her better portability outside the home. While in the home she does use her concentrator because she does get more from the continues oxygen. 06/27/2024 the patient is here for a pulmonary follow-up visit. Overall she is doing well. The patient continues use the oxygen regularly. She is wondering if she can come off. I do believe that from a respiratory status she is doing better on current therapy. The patient is responding well to the Trelegy. She has been off the prednisone which is reassuring. She will be following up with endocrinology soon. In the meantime the patient will benefit from pulmonary rehabilitation. Will go ahead and request pulmonary function studies and start pulmonary rehabilitation at [facility]. The patient prefers therapy was closer to home. 09/08/2024 the patient is here for a pulmonary follow-up visit. Overall she is doing better overall. Her oxygen still drops with activity. Although we did a brief walking oximetry and with deep breathing she actually was able to maintain a pulse ox a lot better. Therefore she needs to continue using her portable oxygen concentrator with activity. I did recommend that she can work on deep breathing especially when she is sitting and she can be on room air. The patient also has been using her respiratory inhalers as prescribed. She has been struggling with her sleep. She is using melatonin but she is still not able to sleep because her significant neuropathic discomfort. Therefore she stopped the trazodone because it was not helping was causing her vivid dreams and she could not tolerate the adverse effects. Will try small dose of Ambien at this time. We did review her pulmonary function studies. They appeared to show a moderate degree of COPD and also mild restriction. But his diffusing capacity is adequate. Therefore, I did encourage her to try to work on her deep breathing exercises. [facility] Medical History Afib Lower extremity edema Adrenal insufficiency RSV (respiratory syncytial virus infection) Atelectasis Hypercalciuria Hypogammaglobulinemia Vasomotor rhinitis Osteoporosis GERD (gastroesophageal reflux disease) HLD (hyperlipidemia) HTN (hypertension) History of CVA (cerebrovascular accident) Chronic cough Seropositive rheumatoid arthritis Chronic rheumatic arthritis Chronic respiratory failure COPD (chronic obstructive pulmonary disease) case management patient Cystic fibrosis carrier Surgical History Hx of shoulder surgery History of surgery Family History Son Cystic fibrosis Social History Household Members: None Alcohol intake: current Alcohol intake frequency: holidays/special occasions only Patient Tobacco Use Status: Former Tobacco user Tobacco use type: Cigarette Cigarettes Per Day: 10 Years Smoked: 20 e-Cigarette/Vaping Use: Never Used Review of Systems Const Reports difficulty sleeping, Denies frequent falls, Reports headache(s), Denies lethargy and Denies malaise ENT Denies change in voice, Reports dizziness, Reports headache(s), Denies mouth pain, Reports nasal congestion, Reports nasal discharge, Reports post nasal drip and Denies tongue swelling Card Denies chest pain, Reports leg edema and Reports dyspnea on exertion Resp Reports cough, Reports dyspnea on exertion and Reports wheezing GI Reports nausea and Reports vomiting Musc Reports arthralgias, Reports joint swelling and Reports limited range of motion Skin/Breast Denies rash Neuro Reports dizziness, Denies frequent falls and Reports headache(s) Psych Denies no additional complaints Sergey/Lymph Denies easy bleeding and Denies lymphadenopathy Aller/Immun Denies tongue swelling and Reports wheezing Physical Exam Vital Signs: Last Vital Signs Pulse 80 09/08/24 10:08 BP 92/50 L 09/08/24 10:08 Pulse Ox 93 09/08/24 10:08 Oxygen Delivery Method Nasal Cannula 09/08/24 10:08 Oxygen Flow Rate 2 09/08/24 10:08 BMI result Body Mass Index 27.9 Const General: comfortable and alert HEENT Head: Yes atraumatic General nose exam: Abnormal external nose present and Nasal discharge present Eyes Pupils: Equal, round and reactive pupils present Neck Neck: Yes normal visual inspection, Yes full ROM and Yes no lymphadenopathy Chest Chest palpation & inspection: normal inspection of the chest Resp Effort & Inspection: normal respiratory effort Auscultation: no wheezes and diminished lung sounds Cardio Rate: regular rate Rhythm: regular rhythm Heart sounds: S1 normal heart sound present and S2 normal heart sound present GI Palpation (GI): Soft to palpation and nontender Auscultation: normal bowel sounds General: Yes no CVA tenderness Back/Spine/Pelvis Back: no CVA tenderness Skin General skin exam: rashes and/or lesions noted Neuro Cranial nerves: Yes Equal, round and reactive pupils present Extrem General: No clubbing, No cyanosis and Yes edema Assessment & Plan Assessment & Plan (1) Chronic respiratory failure: Code(s): J96.10 - Chronic respiratory failure, unspecified whether with hypoxia or hypercapnia Category: Medical Qualifiers: Respiratory failure complication: hypoxia Qualified Code(s): J96.11 - Chronic respiratory failure with hypoxia (2) COPD (chronic obstructive pulmonary disease) case management patient: Code(s): J44.9 - Chronic obstructive pulmonary disease, unspecified Category: Medical (3) Cystic fibrosis carrier: Code(s): Z14.1 - Cystic fibrosis carrier Category: Medical (4) Chronic cough: Code(s): R05.3 - Chronic cough Category: Medical (5) Vasomotor rhinitis: Code(s): J30.0 - Vasomotor rhinitis Category: Medical (6) Hypogammaglobulinemia: Code(s): D80.1 - Nonfamilial hypogammaglobulinemia Category: Medical (7) Atelectasis: Comment: better Code(s): J98.11 - Atelectasis Category: Medical (8) Adrenal insufficiency: Comment: better Code(s): E27.40 - Unspecified adrenocortical insufficiency Category: Medical (9) Anemia: Code(s): D64.9 - Anemia, unspecified Category: Medical Qualifiers: Anemia type: unspecified type Qualified Code(s): D64.9 - Anemia, unspecified Plan stop Trazodone for sleep start Ambien PRN continue Trelegy daily BUdesonide nebs JANNETH as needed oxygen 2L/pulse at rest, 3L/pulse with activity. Now with POC. ipratropium nasal spray Continue CPAP at night with O2 diuresis as tolerated CXR Pulmonary rehab at [facility] F/U 3-4 months Orders: Orders XR chest 2V 09/08/24 J44.9 - Chronic obstructive pulmonary disease, unspecified, J96.11 - Chronic respiratory failure with hypoxia Coding Level of Care Code Est Pt Level 4 (93415) Complex EM visit Add On G2211 Diagnoses Chronic respiratory failure with hypoxia J96.11 Respiratory failure complication: hypoxia COPD (chronic obstructive pulmonary disease) case management patient J44.9 Cystic fibrosis carrier Z14.1 Chronic cough R05.3 Vasomotor rhinitis J30.0 Hypogammaglobulinemia D80.1 Atelectasis J98.11 Adrenal insufficiency E27.40 Anemia, unspecified type D64.9 Anemia type: unspecified type Time Spent (min) 17
== END 2024-09-08 10:41 | disposition home or self-care (01) ==
PROVIDERS: PCP Internal Medicine; Visit Provider Hospitalist
DX: J96.11 Chronic respiratory failure with hypoxia (principal); J44.9 Chronic obstructive pulmonary disease, unspecified; Z14.1 Cystic fibrosis carrier; R05.3 Chronic cough; J30.0 Vasomotor rhinitis; D80.1 Nonfamilial hypogammaglobulinemia; J98.11 Atelectasis; E27.40 Unspecified adrenocortical insufficiency; D64.9 Anemia, unspecified
CPT/HCPCS: 99214; G2211

== ENCOUNTER → 2024-09-08 10:02 | Outpatient (BNVA) | payer MEDICARE, MEDICAID, SELFPAY | PROVIDERS: PCP Internal Medicine; Visit Provider Hospitalist | DX: J96.11 Chronic respiratory failure with hypoxia (principal); J44.9 Chronic obstructive pulmonary disease, unspecified; J30.0 Vasomotor rhinitis; J98.11 Atelectasis; D80.1 Nonfamilial hypogammaglobulinemia; D64.9 Anemia, unspecified; E27.40 Unspecified adrenocortical insufficiency; Z99.89 Dependence on other enabling machines and devices; Z99.81 Dependence on supplemental oxygen; Z14.1 Cystic fibrosis carrier | CPT/HCPCS: 99212 ==

== ENCOUNTER 2025-02-01 09:35 | Outpatient (AMB) | payer MEDICARE, MEDICAID, SELFPAY ==
[2025-02-01 09:44] VITALS: BP 112/60; PULSE 146; O2SAT 96; BMI 25.4
--- NOTE | 2025-02-01 09:44 | MHC.OFFVIS ---
Vital Signs 02/01/25 09:44 Height 5 ft 3 in Weight 143 lb 4.807 oz BMI 25.4 BP 112/60 Blood Pressure Location Rt brachial Position Sitting Pulse 146 H Pulse Source Pulse Oximeter Pulse Oximetry (%) 96 Oxygen Delivery Method Room Air Intake Visit Reasons: COPD Allergies levofloxacin [Levaquin] Allergy (Severe, Verified 02/01/25 09:48) vomiting HPI Comments Details: Patient is 69 y/o woman with a history of COPD O2 dependent in addition to all cystic fibrosis carrier. She has been using the oxygen with good effect. On room air at rest she is down to 87%. When she wears the oxygen at 2 L pulse increases to 94%. She continues to have issues with wheezing and shortness of breath mainly in the morning. She does use her Anoro daily. She felt better when she uses Trelegy in the past. She does not like to use steroids but they seem to help her wheezing specially that in the morning. Therefore, I will switch her back to trelegy as she failed Anoro. She continues uses CPAP with CPAP therapy continues to be affecting beneficial. She uses a nasal pillow mask and it works well. She uses the CPAP more than 4 hours a night. The major issue is that the patient needs increased portability with oxygen. A portable tanks are not providing with enough portability in order for her to do her activities outside of the home. She cannot carry multiple attacks of significant arthritic disease due to the fact that she does have marked arthritis. She continues to have issues with wheezing and shortness of breath mainly in the morning. She does use her Anoro daily. She felt better when she uses Trelegy in the past. She does not like to use steroids but they seem to help her wheezing specially that in the morning. Therefore, I will switch her back to trelegy as she failed Anoro. She continues uses CPAP with CPAP therapy continues to be affecting beneficial. She uses a nasal pillow mask and it works well. She uses the CPAP more than 4 hours a night. The major issue is that the patient needs increased portability with oxygen. A portable tanks are not providing with enough portability in order for her to do her activities outside of the home. She cannot carry multiple attacks of significant arthritic disease due to the fact that she does have marked arthritis. Therefore, the patient needs to get a portable oxygen concentrator through [facility]. We will submit the proper paperwork in start the process for her to be able to get a battery operated portable oxygen concentrator. 01/15/2023 the patient is here for pulmonary follow-up visit. Overall she doing relatively well from a respiratory status. She does have chest congestion and nasal congestion in the morning after using her CPAP. But otherwise clears up after that. She does have the oxygen that she can use with activity. She also uses the oxygen at nighttime with her CPAP. Her CPAP therapy continues to be affecting beneficial and she does use it for more than 4 hours a night. She was wondering about the hypoglossal nerve stimulator. I advised her against considering that option in the meantime the patient has been using her respiratory therapy with good effect. Recently she had blood work including her IgG levels that were found to be low and also a CBC with evidence of microcytosis. The patient has had history of B12 deficiency in the past. Therefore, she is going to go back to using multivitamins with B complex and will have repeat blood work in a couple months. Hopefully her IgG levels improved and her MCV also improves. Patient also may benefit from a hematological evaluation. She continues use the Trelegy inhaler with good effect. No need for prednisone at this time which is reassuring. 07/15/2023 the patient is here for hospital follow-up visit. The patient recently was hospitalized at [facility] for shoulder surgery. The surgery went well but apparently after she was having issues with respiratory distress. There was suspicion of aspiration pneumonitis. The patient did have to use oxygen. She was also kept in the hospital given antibiotics and also I respiratory therapy treatments. The patient also had a CT scan of the chest demonstrating some new pulmonary nodules that will need follow-up. She continues to struggle with her breathing. Still requiring between 2-3 L with activity. Prior to that she was is using her oxygen at nighttime with her PAP therapy. We did go for brief walking oximetry in the patient did desaturate very quickly at rest and did make up to 3 L with activity. She has a hard time caring the oxygen tanks because her shoulder surgery. I did ask for small trial E for her to get from her [employer] in order for her to be able to carry her oxygen. Will plan to start her on prednisone and also get an x-ray prior to the next visit. She should follow-up in 3-4 weeks. 08/05/2023 the patient is here for a pulmonary follow-up visit. The patient is feeling a little better. She still has significant pain from her shoulder surgery. She has been using her oxygen. The oxygen therapy has been affecting beneficial. Although is very difficult for her to carry the oxygen outside of the home because of her shoulder. For the most part she stays in her house. She still desaturates and she still needs to continues use her oxygen. She did undergo a repeat chest x-ray which I did review with her and we compared to her chest x-rays from [facility]. There is interval improvement in the bibasilar opacities which is reassuring. Also to note the patient was admitted to the hospital again at [facility] with atrial fibrillation with RVR. This is new onset AFib for her. She was seen by Cardiology. She was initially placed on Eliquis and also amiodarone. The dose of amiodarone has subsequently decreased. No evidence of any worsening shortness of breath which is reassuring. 12/07/2023 the patient has a telehealth visit today. Apparently she was sick with RSV back in October where she spent several weeks in the hospital. She did require ICU level of care. She was not high-flow. She was then transferred to an acute rehab most likely because of ongoing respiratory failure. The patient there spent about another 2-3 weeks. Subsequently after that she was discharged home on some prednisone she just finished the last week. She started developing dizziness, nausea vomiting, malaise. She feels very sleepy. Denies any worsening of the breathing although she is short of breath with activity. She has been using her oxygen with good effect. Will go ahead and give her some Zofran for her nausea and vomiting will start her back on 20 mg of prednisone for this suspicion of adrenal insufficiency secondary to her multiple wakes up prednisone likely high dose. The patient will start on the 20 mg twice a day for the 1st day then 20 mg daily. Once she feels better she needs to come in for blood work including a venous gas to make sure that his CO2 is within the normal ranges. If the patient worsens she knows she needs to go to the ER in view of her significant comorbidities. 12/13/2023 the patient has a follow-up visit today. We had a telehealth visit just last week. The patient was having significant adverse effects from withdrawal from prednisone. Likely developing secondary adrenal insufficiency. the patient did start prednisone she quickly start feeling better. She is up to 20 mg daily. She also underwent blood work demonstrating a critically low potassium of 2.8 which we repleted with oral supplement. In addition to that the patient was noted to be anemic with hemoglobin down to 8.8. We did repeat her blood work today appears that her potassium is back to normal and her hemoglobin is a little better up to 9. therefore it is reassuring. The patient has been using her oxygen with good effect. In addition to that the patient has been hypomanic. She is here with her sister. She is acting strangely and not keeping her boundaries. Explained to the sister that is likely all the prednisone. Will going to quickly try to decrease it down to 10 mg daily. She can continue on that dose. When she follows up in the coming weeks we can work on decreasing her prednisone further. In the meantime she would benefit from an endocrinology evaluation for adrenal insufficiency. I will make a referral at this time. 02/28/2024 the patient is here for a pulmonary follow-up visit. She is still struggling with the prednisone. She has been able to cut down slowly down to 7 mg. She does have an appointment with endocrinology to assess her for adrenal insufficiency. The patient would like to come off though she knows she does not feel good when she comes off completely. The patient will continue to cut down by 1 mg every 2 weeks. I did send her enough medications to the pharmacy and she should have an appointment with endocrinology soon. The patient is also having hard time caring the oxygen tanks. She has significant facilities and difficulty walking therefore using the oxygen tanks are very difficult. I did do a 6 minute walk test the patient did great. She did require oxygen at 3 L pulse with activity. Even at rest the patient does desaturate down to 88% and therefore she should continue with 2 L pulse at rest or 2 L continuous at home. Will submit a new prescription for portable oxygen concentrator to improve the portability the patient. 04/25/2024 the patient is here for pulmonary follow-up visit. Overall the patient is feeling little better. She was weaned off the prednisone completely. Subsequently after that the patient started developing worsening abdominal discomfort causing to have difficulty breathing. She went to the [facility]. She is noted to have significant lower extremity edema with weeping of her legs. She has been on Lasix. No evidence of any cellulitis although she is high risk. She did have a bedside echo although very limited. She will see her smoking pipe mounter soon and should have a repeat echocardiogram soon. Indeed she may have a component of cor pulmonale with significant lower extremity edema. She will need additional diuresis at this time. She has issues with the kidneys and therefore needs to be careful with diuresis. But her kidney function was normal the last time those checked. Therefore, will place her on additional Lasix if the patient will have blood work again. She will have her cortisol level rechecked. She also got her portable oxygen concentrator. This has been affecting beneficial. Is given her better portability outside the home. While in the home she does use her concentrator because she does get more from the continues oxygen. 06/27/2024 the patient is here for a pulmonary follow-up visit. Overall she is doing well. The patient continues use the oxygen regularly. She is wondering if she can come off. I do believe that from a respiratory status she is doing better on current therapy. The patient is responding well to the Trelegy. She has been off the prednisone which is reassuring. She will be following up with endocrinology soon. In the meantime the patient will benefit from pulmonary rehabilitation. Will go ahead and request pulmonary function studies and start pulmonary rehabilitation at [facility]. The patient prefers therapy was closer to home. 09/08/2024 the patient is here for a pulmonary follow-up visit. Overall she is doing better overall. Her oxygen still drops with activity. Although we did a brief walking oximetry and with deep breathing she actually was able to maintain a pulse ox a lot better. Therefore she needs to continue using her portable oxygen concentrator with activity. I did recommend that she can work on deep breathing especially when she is sitting and she can be on room air. The patient also has been using her respiratory inhalers as prescribed. She has been struggling with her sleep. She is using melatonin but she is still not able to sleep because her significant neuropathic discomfort. Therefore she stopped the trazodone because it was not helping was causing her vivid dreams and she could not tolerate the adverse effects. Will try small dose of Ambien at this time. We did review her pulmonary function studies. They appeared to show a moderate degree of COPD and also mild restriction. But his diffusing capacity is adequate. Therefore, I did encourage her to try to work on her deep breathing exercises. 02/01/2025 the patient is here for a pulmonary follow-up visit. She has had a very extensive history since her last time she was here. She was admitted to the hospital with a fracture shoulder. She needs to have surgery. Afterwards she developed significant weakness and neuropathy of that arm suggesting a brachial plexus neuropathy. She is looking to get a referral to [facility] to have this looked at. In the meantime she has had a lot of weight loss from her multiple hospitalizations and rehabilitation. She continues on the oxygen with good effect. She does have a POC that she uses a good portability outside of the home. In addition to that she continues uses CPAP every night. CPAP therapy has been affecting beneficial and she does use it for more than 4 hours a night. She will continue with the current respiratory therapy. Will follow-up sometime in 6-8 months. If she has any issues prior to that she will call for an earlier assessment. For now will continue the current respiratory regimen as is. [facility] Medical History Afib Lower extremity edema Adrenal insufficiency RSV (respiratory syncytial virus infection) Atelectasis Hypercalciuria Hypogammaglobulinemia Vasomotor rhinitis Osteoporosis GERD (gastroesophageal reflux disease) HLD (hyperlipidemia) HTN (hypertension) History of CVA (cerebrovascular accident) Chronic cough Seropositive rheumatoid arthritis Chronic rheumatic arthritis Chronic respiratory failure COPD (chronic obstructive pulmonary disease) case management patient Cystic fibrosis carrier Surgical History Hx of shoulder surgery History of surgery Family History Son Cystic fibrosis Social History Household Members: None Alcohol intake: current Alcohol intake frequency: holidays/special occasions only Patient Tobacco Use Status: Former Tobacco user Tobacco use type: Cigarette Cigarettes Per Day: 10 Years Smoked: 20 e-Cigarette/Vaping Use: Never Used Review of Systems Const Reports difficulty sleeping, Denies frequent falls, Reports headache(s), Denies lethargy, Denies malaise, Reports weakness and Reports weight loss ENT Denies change in voice, Reports dizziness, Reports headache(s), Denies mouth pain, Reports nasal congestion, Reports nasal discharge, Reports disequilibrium, Reports post nasal drip and Denies tongue swelling Card Denies chest pain, Reports leg edema and Reports dyspnea on exertion Resp Reports cough, Reports dyspnea on exertion and Reports wheezing GI Reports nausea and Reports vomiting Musc Reports as per HPI, Reports abnormal gait, Reports arthralgias, Reports joint swelling and Reports limited range of motion Skin/Breast Denies rash Neuro Reports abnormal gait, Reports dizziness, Denies frequent falls, Reports headache(s), Reports radicular pain, Reports disequilibrium and Reports weakness Psych Denies no additional complaints Sergey/Lymph Denies easy bleeding and Denies lymphadenopathy Aller/Immun Denies tongue swelling and Reports wheezing Physical Exam Vital Signs: Last Vital Signs Pulse 146 H 02/01/25 09:44 BP 112/60 02/01/25 09:44 Pulse Ox 96 02/01/25 09:44 Oxygen Delivery Method Room Air 02/01/25 09:44 BMI result Body Mass Index 25.4 Const General: comfortable and alert HEENT Head: Yes atraumatic General nose exam: Abnormal external nose present and Nasal discharge present Eyes Pupils: Equal, round and reactive pupils present Neck Neck: Yes normal visual inspection, Yes full ROM and Yes no lymphadenopathy Chest Chest palpation & inspection: normal inspection of the chest Resp Effort & Inspection: normal respiratory effort Auscultation: no wheezes and diminished lung sounds Cardio Rate: regular rate Rhythm: regular rhythm Heart sounds: S1 normal heart sound present and S2 normal heart sound present GI Palpation (GI): Soft to palpation and nontender Auscultation: normal bowel sounds General: Yes no CVA tenderness Back/Spine/Pelvis Back: no CVA tenderness Skin General skin exam: rashes and/or lesions noted Neuro Cranial nerves: Yes Equal, round and reactive pupils present Extrem General: No clubbing, No cyanosis and Yes edema Assessment & Plan Assessment & Plan (1) Chronic respiratory failure: Code(s): J96.10 - Chronic respiratory failure, unspecified whether with hypoxia or hypercapnia Category: Medical Qualifiers: Respiratory failure complication: hypoxia Qualified Code(s): J96.11 - Chronic respiratory failure with hypoxia (2) COPD (chronic obstructive pulmonary disease) case management patient: Code(s): J44.9 - Chronic obstructive pulmonary disease, unspecified Category: Medical (3) Cystic fibrosis carrier: Code(s): Z14.1 - Cystic fibrosis carrier Category: Medical (4) Chronic cough: Code(s): R05.3 - Chronic cough Category: Medical (5) Vasomotor rhinitis: Code(s): J30.0 - Vasomotor rhinitis Category: Medical (6) Hypogammaglobulinemia: Code(s): D80.1 - Nonfamilial hypogammaglobulinemia Category: Medical (7) Atelectasis: Comment: better Code(s): J98.11 - Atelectasis Category: Medical (8) Adrenal insufficiency: Comment: better Code(s): E27.40 - Unspecified adrenocortical insufficiency Category: Medical (9) Anemia: Code(s): D64.9 - Anemia, unspecified Category: Medical Qualifiers: Anemia type: unspecified type Qualified Code(s): D64.9 - Anemia, unspecified Plan continue Trelegy daily JANNETH as needed oxygen 2L/pulse at rest, 3L/pulse with activity. Now with POC. ipratropium nasal spray Continue CPAP at night with O2 diuresis as tolerated F/U 6-8 months Coding Level of Care Code Est Pt Level 4 (85904) Complex EM visit Add On G2211 Diagnoses Chronic respiratory failure with hypoxia J96.11 Respiratory failure complication: hypoxia COPD (chronic obstructive pulmonary disease) case management patient J44.9 Cystic fibrosis carrier Z14.1 Chronic cough R05.3 Vasomotor rhinitis J30.0 Hypogammaglobulinemia D80.1 Atelectasis J98.11 Adrenal insufficiency E27.40 Anemia, unspecified type D64.9 Anemia type: unspecified type Time Spent (min) 17
--- OUTSIDE RECORDS SUMMARY | 2025-02-01 11:02 | XMS_ITS | Encounter Summary ---
Author Organization [facility] Address [address] [place] [address] Care Team Providers Care Entry Level Name Role Phone Fe León MD Primary Care Provider Reason for Visit * Reason Onset Date Comments VNA 01/22/2025 Encounter Details Date Type Department Care Team (Late st Contact Info) Description 01/22/2025 Telephone Adult Medicine [address] [phone] Maryse Gabriel MA VNA Social History Tobacco Use Types Packs/Day Years Used Date Smoking Tobacco: Former Cigarettes Smokeless Tobacco: Never Alcohol Use Standard Drinks/Week Comments Yes 0 (1 standard drink = 0.6 oz pur e alcohol) Housing Instability Answer Date Recorde d Are you worried that in the next 2 months you may not have stable housing? No 10/31/2024 Food Access & Nutrition Answer Date Rec orded Do you have access to a vari ety of food including fruits and vegetables? Yes 10/31/2024 Access to Healthcare Answer Date Record ed Within the last 3 months, ho w many times did you visit the emergency department for your medical care? 2 10/31/2024 Health Literacy Answer Date Recorded How often do you need to hav e someone help you when you read instructions, pamphlets, or other written material from your doctor or pharmacy? Rarely 10/31/2024 Caregiver: How often do you need to have someone help you when you read instructions, pamphlets, or other written material from your doctor or pharmacy? Not on file 10/31/2024 Financial Risk Answer Date Recorded How hard is it for you to pa y for the very basics like food, housing, medical care, and air conditioning / heating? Patient declined 10/31/2024 Transportation Answer Date Recorded Has the lack of transportati on kept you from meetings, work, or from getting things needed for daily living? No Has the lack of transportati on kept you from medical appointments or from getting medications? No 10/31/2024 Social Isolation Answer Date Recorded How often do you feel lonely or isolated from th ose around you? Rarely 10/31/2024 Food Risk Answer Date Recorded Within the past 12 months we worried whether our food would run out before we got money to buy more. Never true 10/31/2024 Within the past 12 months th e food we bought just didn't last and we didn't have money to get more. Never true 10/31/2024 Dependent Care Answer Date Recorded Do you need help finding or paying for care for your loved ones. For example, children's lunchroom supervisor or elderly care for an older adult? Patient declined 10/31/2024 Education Answer Date Recorded Do you think completing more education or training, like finishing a GED, going to college, or learning a trade, would be helpful for you? No 10/31/2024 Employment and Income Answer Date Recor ded During the last four weeks, have you been actively looking for work? No 10/31/2024 Living Situation Answer Date Recorded What is your living situation? 0 10/31/2024 Interpersonal Safety Answer Date Record ed Physical Abuse 10/01/2024 Verbal Abuse 10/01/2024 Comments Unknown Sex and Gender Information Value Date Recorded Sex Assigned at Female 09/16/2024 3:36 PM EST Legal Sex Female 12:31 PM EST Gender Identity Female 09/16/2024 3:36 PM EST Sexual Orientation Straight 09/16/2024 3: 36 PM EST documented as of this encounter Functional Status * Are you deaf or do you have serious difficulty hearing? Answer Date of Assessment Author No 09/30/2024 6:40 PM Barb Anderson RN * Are you blind or do you have serious difficulty seeing, even when wearing glasses? Answer Date of Assessment Author No 09/30/2024 6:40 PM Barb Anderson RN * Do you have serious difficulty walking or climbing stairs? Answer Date of Assessment Author No 09/30/2024 6:40 PM Barb Anderson RN * Do you have serious difficulty dressing or bathing? Answer Date of Assessment Author No 09/30/2024 6:40 PM Barb Anderson RN * Because of a physical, mental, or emotional condition, do you have serious difficulty doing errandsalone such as visiting the doctor? Answer Date of Assessment Author No 09/30/2024 6:40 PM Barb Anderson RN documented as of this encounter Mental Status * Because of a physical, mental, or emotional condition, do you have serious difficulty concentrating, remembering, or making decisions? (5 years old or older) Answer Entry Date Author No 09/30/2024 6:40 PM Barb Anderson RN documented in this encounter Progress Notes * Maryse Gabriel MA - 01/22/2025 3:07 PM EDT Error documented in this encounter Plan of Treatment Upcoming Encounters Date Type Department Care Team (Late st Contact Info) Description 02/21/2025 9:40 AM EDT Office Visit [facility] [address] [facility] [address] [place] [phone] Cindy Arechiga NP [address] [place] [phone] documented as of this encounter Visit Diagnoses Not on filedocumented in this encounter Care Teams Entry Level Relationship Specialty Start Date End Date Fe León MD [address] [place] [address] [address] [place] [phone] PCP - General Internal Medicine 01/30/25 documented as of this encounter
--- OUTSIDE RECORDS SUMMARY | 2025-02-01 11:02 | XMS_ITS | Encounter Summary ---
Author Organization [facility] Address [address] [place] [address] Care Team Providers Care Vulcanized Fiber Unit Operator Name Role Phone Fe León MD Primary Care Provider Encounter Details Date Type Department Care Team (Late st Contact Info) Description 01/20/[address] [facility] - Main Lab [address] [facility] [address] [facility] [place] [phone] Ashley Gonzáles MD [address] [place] [address] Essential (primary) hypertension Social History Tobacco Use Types Packs/Day Years [...] Record ed Within the last 3 months, edouard bush many times did you visit the emergency [...] care for your loved ones. For example, child welfare worker or elderly care for an older adult? [...] of Assessment Author No 09/30/2024 6:40 PM Oneal Anderson RN * Do you have serious [...] Barb Anderson RN documented in this encounter Plan of Treatment Upcoming Encounters Date Type Department Care Team (Late st Contact Info) Description 02/21/2025 9:40 AM EDT Office Visit [facility] - [facility] [address] [facility] [address] [place] [phone] Cindy Arechiga NP [address] [place] [phone] documented as of this encounter Visit Diagnoses Diagnosis Essential (primary) hypertension Unspecified essential hypertension documented in this encounter Care Teams Vulcanized Fiber Unit Operator Relationship Specialty Start Date End Date Fe León MD [address] [facility] [address] [place] [address] PCP - General Internal Medicine 01/30/25 documented as of this encounter
--- OUTSIDE RECORDS SUMMARY | 2025-02-01 11:02 | XMS_ITS | Encounter Summary ---
Author Organization [facility] Address [address] [place] [address] Care Team Providers Care Automation Qa Tester Name Role Phone Fe León MD Primary Care Provider Encounter Details Date Type Department Care Team (Late st Contact Info) Description 11/18/2024 Lab Requisition [facility] - Main Lab [address] [facility] [place] [address] Dayanara Barber MD [address] [phone] Unspecified atrial fibrillation (CMS/HCC V24, CMS/HCC V28) Social History Tobacco Use Types Packs/Day Years [...] care for your loved ones. For example, early childhood education specialist or elderly care for an older adult? [...] of Assessment Author No 09/30/2024 6:40 PM Brab Anderson RN * Do you have serious [...] Description 02/21/2025 9:40 AM EDT Office Visit [facility] - [facility] [address] [facility] 102 [place] [address] Cindy Arechiga NP [address] [facility] [address] [place] [phone] documented as of this encounter Visit Diagnoses Diagnosis Unspecified atrial fibrillation (CMS/HCC V24, CMS/HCC V28) documented in this encounter Care Teams Automation Qa Tester Relationship Specialty Start Date End Date Fe León MD [address] [facility] [address] [place] [phone] PCP - General Internal Medicine 01/30/25 documented as of this encounter
--- OUTSIDE RECORDS SUMMARY | 2025-02-01 11:02 | XMS_ITS | Encounter Summary ---
Author Organization [facility] Address [address] [place] [address] Care Team Providers Care Pick And Shovel Man Name Role Phone Fe León MD Primary Care Provider [phone] Encounter Details Date Type Department Care Team (Late st Contact Info) Description 11/07/2024 Lab Requisition [facility] - Main Lab [address] [facility] [address] [facility] [place] [address] Dayanara Barber MD [address] [phone] Unspecified atrial fibrillation (CMS/HCC V24, CMS/HCC V28) [...] for your loved ones. For example, children's minister or elderly care for an older adult? [...] Description 02/21/2025 9:40 AM EDT Office Visit [facility] - [facility] [address] [facility] [address] [place] [address] Cindy Arechiga NP 300 [facility] [address] [place] [phone] documented as of this encounter Procedures Procedure Name Priority Date/Time Associated Diagnosis Comments COMPLETE BLOOD COUNT Routine 11/07/2024 5:40 AM EST Unspecified atrial fibrillation (CMS/HCC) BASIC METABOLIC PANEL Routine 11/07/2024 5:40 AM EST Unspecified atrial fibrillation (CMS/HCC) documented in this encounter Results * (ABNORMAL) Basic metabolic panel (11/07/2024 5:40 AM EST) Sodium 139 133 - 145 mmol/L LAB CHEMISTRY METHOD 11/07/2024 10:54 AM [facility] Potassium 4.2 3.5 - 5.5 mmol/L LAB CHEMISTRY METHOD 11/07/2024 10:54 AM [facility] Chloride 100 96 - 110 mmol/L LAB CHEMISTRY METHOD 11/07/2024 10:54 AM [facility] CO2 37(H) 21 - 32 mmol/L LAB CHEMISTRY METHOD 11/07/2024 10:54 AM [facility] Anion Gap 2(L) 3 - 11 LAB CHEMISTRY METHOD 11/07/2024 10:54 AM [facility] Glucose 92 70 - 100 mg/dL LAB CHEMISTRY METHOD 11/07/2024 10:54 AM [facility] BUN 7 5 - 25 mg/dL LAB CHEMISTRY METHOD 11/07/2024 10:54 AM [facility] Creatinine 0.40(L) 0.50 - 1.10 mg/dL LAB CHEMISTRY METHOD 11/07/2024 10:54 AM [facility] eGFR 109 >=60 mL/min/1. 73m2 LAB CHEMISTRY METHOD 11/07/2024 10:54 AM [facility] Comment:Calculation based on the??Chronic Kidney Disease Epidemiology Collaboration (CKD-EPI) equation refit??without adjustment for race. BUN/Creatinine Ratio 17.5 LAB CHEMISTRY METHOD 11/07/2024 10:54 AM [facility] Calcium 9.2 8.5 - 10.5 mg/dL LAB CHEMISTRY METHOD 11/07/2024 10:54 AM [facility] Blood Venous blood specimen / Unknown Venipuncture / Unknown 11/07/2024 5:40 AM EST 11/07/2024 9:25 AM EST us Dayanara Barber MD LAB BLOOD ORDERABLES Fin al Result [facility] [address] [place] [address], * (ABNORMAL) Complete blood count (11/07/2024 5:40 AM EST) WBC 7.0 4.8 - 10.8 K/mcL LAB HEMETOLOGY METHOD 11/07/2024 10:25 AM [facility] RBC 2.60(L) 3.80 - 4.80 M/mcL LAB HEMETOLOGY METHOD 11/07/2024 10:25 AM [facility] Hemoglobin 8.2(L) 11.5 - 16.0 g/dL LAB HEMETOLOGY METHOD 11/07/2024 10:25 AM [facility] Hematocrit 26.1(L) 35.0 - 47.0 % LAB HEMETOLOGY METHOD 11/07/2024 10:25 AM [facility] MCV 99.2(H) 79.0 - 98.0 FL LAB HEMETOLOGY METHOD 11/07/2024 10:25 AM [facility] MCH 31.2 27.0 - 32.0 pcg LAB HEMETOLOGY METHOD 11/07/2024 10:25 AM [facility] MCHC 31.4(L) 32.0 - 37.0 g/dL LAB HEMETOLOGY METHOD 11/07/2024 10:25 AM [facility] RDW 15.9(H) 11.0 - 15.0 % LAB HEMETOLOGY METHOD 11/07/2024 10:25 AM [facility] Platelets 293 130 - 400 K/mcL LAB HEMETOLOGY METHOD 11/07/2024 10:25 AM [facility] MPV 11.7(H) 7.0 - 11.0 FL LAB HEMETOLOGY METHOD 11/07/2024 10:25 AM EST [facility] NRBC 0.0 <1.0 % LAB HEMETOLOGY METHOD 11/07/2024 10:25 AM EST [facility] NRBC Absolute 0.00 <0.10 K/mcL LAB HEMETOLOGY METHOD 11/07/2024 10:25 AM EST [facility] Blood Venous blood specimen / Unknown Venipuncture / Unknown 11/07/2024 5:40 AM EST 11/07/2024 9:25 AM EST us Dayanara Barber MD LAB BLOOD ORDERABLES Fin al Result [facility] [address] [place] [address], documented in this encounter Visit Diagnoses Diagnosis Unspecified atrial fibrillation (CMS/HCC V24, CMS/HCC V28) documented in this encounter Care Teams Pick And Shovel Man Relationship Specialty Start Date End Date Fe León MD [address] [place] [phone] PCP - General Internal Medicine 01/30/25 documented as of this encounter
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
--- OUTSIDE RECORDS SUMMARY | 2025-02-01 11:02 | XMS_ITS | Encounter Summary ---
Author Organization [facility] Address [address] [place] [address] Care Team Providers Care Commercial Carpet Installer Name Role Phone Fe León MD Primary Care Provider Reason for Visit * Reason Onset Date Comments OTHER 01/31/2025 Medication quest ions Encounter Details Date Type Department Care Team ([facility] Contact Info) Description 01/31/2025 Telephone [facility] - [facility] [address] [facility] [address] [place] [phone] Tariq Villalobos MD [address] [facility] [address] [place] [address] OTHER (Medication questions ) Social History Tobacco Use Types Packs/Day Years [...] for your loved ones. For example, child attendant or elderly care for an older adult? [...] documented in this encounter Progress Notes * Tressa Hicks MA - 01/31/2025 9:19 AM EDT Saul from [facility] called asking for a call to discuss the patient's diuretics. He stated she has has been having some weight gain fluctuations, gaining 2-3 pounds in a day at times. She is experiencing no other symptoms.Please contact Saul to discuss diuretics and next steps for the pat ient. documented in this encounter Plan of Treatment Upcoming Encounters Date Type Department Care Team (Late st Contact Info) Description 02/21/2025 9:40 AM EDT Office Visit [facility] - [facility] [address] [facility] [address] [place] [phone] Cindy Arechiga, LOGAN [address] [place] [phone] documented as of this encounter Visit Diagnoses Not on filedocumented in this encounter Care Teams Commercial Carpet Installer Relationship Specialty Start Date End Date Fe León MD [address] [facility] [address] [place] [phone] PCP - General Internal Medicine 01/30/25 documented as of this encounter
--- OUTSIDE RECORDS SUMMARY | 2025-02-01 11:02 | XMS_ITS | Clinical Summary ---
Author Organization [facility] Address [address] [facility] [address] [place] [address] Phone Care Team Providers Care Software Release Manager Name Role Phone Fe León MD Primary Care Provider Allergies Active Allergy Reactions Criticality Noted Date Comments Benazepril 11/04/2021 Other reaction(s): cough Gluten Meal 11/04/2021 Levofloxacin Nausea Only 03/31/2021 Medications albuterol HFA (PROVENTIL HFA;VENTOLIN HFA) 108 (90 Base) MCG/ACT inhaler Active aspirin (ST KARISSA) 81 MG EC tablet Take 1 tablet by mouth 1 (one) time each day Active clopidogrel (PLAVIX) 75 MG tablet Take 1 tablet by mouth 1 (one) time each day Active pregabalin (LYRICA) 75 MG capsule Take 1 capsule by mouth 2 (two) times a day Active pyridoxine (B-6) 50 MG tablet Take 1 tablet by mouth 1 (one) time each day 02/23/2019 Active salsalate (DISALCID) 500 MG tablet Take 2 tablets by mouth 2 (two) times a day Active Sarilumab (Kevzara) 200 MG/1.14ML solution auto-injector Comments: Filled Date: Apr 06 2019 12:00AM Duration: 28 Active umeclidinium-vi lanterol (Anoro Ellipta) 62.5-25 MCG/INH aerosol powder Activ e ferrous sulfate 325 (65 Fe) MG tablet Take 1 tablet by mouth every other day 04/06/2021 Active DULoxetine (CYMBALTA) [address] capsule Take 1 capsule by mouth 2 (two) times a day 03/30/2021 Active ammonium lactate (AMLACTIN) 12 % cream APPLY TO AFFECTED AREA TWICE A DAY 04/04/2021 Active atorvastatin (LIPITOR) 40 MG tablet TAKE 1 TABLET BY MOUTH EVERY DAY AT NIGHT 90 tablet 4 05/09/2022 Active valsartan (DIOVAN) 80 MG tablet TAKE 1 TABLET BY MOUTH 1 TIME EACH DAY. 90 tablet 3 03/24/2023 Active metoprolol succinate XL (TOPROL XL) 50 MG 24 hr tablet TAKE 2 TABLETS BY MOUTH 1 TIME EACH DAY. 180 tablet 3 03/24/2023 Active amLODIPine (NORVASC) 2.5 MG tablet TAKE 2 TABLETS BY MOUTH EVERY DAY 180 tablet 1 04/21/2023 Active Active Problems Problem Noted Date Diagnosed Date Chest discomfort 11/16/2022 Overview (11/19/2022): Last Assessment & Plan: Associated with palpitations. By physical exam, she has quite frequent ectopic heartbeat. Giving her significant risk factors, especially peripheral vascular disease, would like to repeat pharmacological nuclear stress test. Palpitations 11/16/2022 Overview (11/19/2022): Last Assessment & Plan: She has frequent ectopic beats by physical exam. EKG shows sinus rhythm. She dranks quite heavily. We will arrange Holter monitor. Alcoholism 11/04/2021 Hypokalemia 11/04/2021 Renal artery stenosis 11/04/2021 Vitamin D deficiency 11/04/2021 Aortic valve disorder 06/18/2021 Overview (11/19/2022): Last Assessment & Plan: With mild aortic regurgitation. Atherosclerosis of renal artery 03/31/2021 Essential hypertension 03/31/2021 Chronic rheumatic arthritis 11/11/2017 Dependence on supplemental oxygen 11/11/2017 History of influenza 11/11/2017 Overview (11/19/2022): TYPE A , hospitalization 10/2017 for 5 days Mixed simple and mucopurulent chronic bronchitis 09/20/2017 Obstructive sleep apnea syndrome 09/20/2017 Vasomotor rhinitis 09/20/2017 Resolved Problems Problem Noted Date Diagnosed Date Resolved Date Fibromyalgia 11/04/2021 11/04/2021 Allergic rhinitis 11/04/2021 11/04/2021 Anxiety 11/04/2021 11/04/2021 Asthma 11/04/2021 11/04/2021 Backache 11/04/2021 11/04/2021 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/2021 11/04/2021 Candidiasis 11/04/2021 11/04/2021 Celiac disease 11/04/2021 11/04/2021 Cellulitis of foot 11/04/2021 Chronic low back pain 11/04/20212021 Chronic obstructive pulmonary disease 11/04/2021 11/04/2021 Intermittent claudication 11/04/2021 Disorder of artery 11/04/2021 Diverticulitis of colon 11/04/202110/18 Enthesopathy of wrist AND/OR carpus 11/04/2021 11/04/2021 Ex-smoker 11/04/2021 11/04/2021 Gastroesophageal reflux disease 11/04/2021 11/04/2021 Memory impairment 11/04/2021 11/04/2021 Osteopenia 11/04/2021 11/04/2021 Plantar fascial fibromatosis 11/04/2021 11/04/2021 Psychalgia 11/04/2021 11/04/2021 Rib pain 11/04/2021 11/04/2021 Degeneration of lumbar intervertebral disc 03/31/2021 10/31/2021 Lumbar spondylosis with myelopathy 03/31/2021 10/31/2021 Lumbosacral radiculopathy 03/31/2021 Other hereditary and idiopathic neuropathies 8 10/31/2021 Immunizations Immunization Administration Dates Next Due Influenza, Unspecified 08/07/2015 Pneumococcal Polysaccharide 08/07/2015 Family History Medical History Relation Comments Heart disease Father Hypertension Father Stroke Father Cancer Sibling Relation Status Comments Father Mother Alive Sibling Social History Tobacco Use Types Packs/Day Years Used Date Smoking Tobacco: Former Cigarettes Q uit: 10/18/2009 Smokeless Tobacco: Never Tobacco Cessation:Counseling Given: Not Answered Comments:Smoking History Info:Every day Alcohol Use Standard Drinks/Week Comments Yes 0 (1 standard drink = 0.6 oz pure alcohol) Alcoholic Drinks/day: Occasional social drink Comments Unknown Sex and Gender Information Value Date Recorded Sex Assigned at Not on file Legal Sex Female 5:09 PM EST Gender Identity Not on file Sexual Orientation Not on file Last Filed Vital Signs Vital Sign [place] Time Taken Comments Blood Pressure 138/60 11/19/2022 3:45 PM EST Pulse 82 11/19/2022 3:45 PM EST Temperature - - Respiratory Rate - - Oxygen Saturation 97% 04/06/2022 3:35 PM EDT Inhaled Oxygen Concentration - - Weight 77.8 kg (171 lb 9.6 oz) 11/19/2022 3:45 P M EST Height 160 cm (5' 3 ) 01/16/2020 12:00 PM EDT Body Mass Index 30.4 01/16/2020 12:00 PM EDT Plan of Treatment Health Maintenance Due Date Last Done Comments Breast Cancer Screening 1955 Colorectal Cancer Screening: Annual FOBT 2006 Colorectal Cancer Screening: Colonoscopy 2006 Colorectal Cancer Screening: Sigmoidoscopy 2006 Pneumococcal Vaccine: 50+ Ye ars (2 of 2 - PCV) 08/07/2016 08/07/2015 Influenza Vaccine (Season Ended) 2025 08/07/20 Pneumococcal Vaccine: Peds ( 0 to 5 Years) and At-Risk Patients (6 to 49 Years) Discontinued 08/07/2015 Hepatitis B Vaccine Aged Out No longe r eligible based on patient's age to complete this topic Insurance Medicare Medicaid [place] Medicare Medicaid [place] Care Teams Software Release Manager Relationship Specialty Start Date End Date Fe León MD [address] [place] [phone] PCP - General Internal Medicine 03/31/21
--- OUTSIDE RECORDS SUMMARY | 2025-02-01 11:02 | XMS_ITS | Encounter Summary ---
Author Organization [facility] Address [address] [place] [address] Care Team Providers Care Dixonac Operator Name Role Phone Fe León MD Primary Care Provider Encounter Details Date Type Department Care Team (Late st Contact Info) Description 01/08/[address] [facility] - Main Lab [address] [place] [phone] Ashley Gonzáles MD [address] [place] [address] Essential (primary) hypertension; Hyperlipidemia, unspecified; Shortness of breath Social History Tobacco Use Types Packs/Day Years [...] care for your loved ones. For example, registered nurse maternal child or elderly care for an older adult? [...] Description 02/21/2025 9:40 AM EDT Office Visit [facility] - [facility] [address] [facility] [address] [place] [address] Cindy Arechiga NP 300 [facility] 154 [place] [phone] documented as of this encounter Procedures Procedure Name Priority Date/Time Associated Diagnosis Comments COMPLETE BLOOD COUNT Routine 01/08/2025 6:30 AM EDT Essential (primary) hypertension Hyperlipidemia, unspecified Shortness of breath BASIC METABOLIC PANEL Routine 01/08/2025 6:30 AM EDT Essential (primary) hypertension Hyperlipidemia, unspecified Shortness of breath documented in this encounter Results * Basic metabolic panel (01/08/2025 6:30 AM EDT) Sodium 140 133 - 145 mmol/L LAB CHEMISTRY METHOD 01/08/2025 12:11 PM [facility] Potassium 4.0 3.5 - 5.5 mmol/L LAB CHEMISTRY METHOD 01/08/2025 12:11 PM [facility] Chloride 103 96 - 110 mmol/L LAB CHEMISTRY METHOD 01/08/2025 12:11 PM [facility] CO2 32 21 - 32 mmol/L LAB CHEMISTRY METHOD 01/08/2025 12:11 PM [facility] Anion Gap 5 3 - 11 LAB CHEMISTRY METHOD 01/08/2025 12:11 PM [facility] Glucose 88 70 - 100 mg/dL LAB CHEMISTRY METHOD 01/08/2025 12:11 PM [facility] BUN 10 5 - 25 mg/dL LAB CHEMISTRY METHOD 01/08/2025 12:11 PM [facility] Creatinine 0.52 0.50 - 1.10 mg/dL LAB CHEMISTRY METHOD 01/08/2025 12:11 PM [facility] eGFR 102 >=60 mL/min/1. 73m2 LAB CHEMISTRY METHOD 01/08/2025 12:11 PM [facility] Comment:Calculation based on the??Chronic Kidney Disease Epidemiology Collaboration (CKD-EPI) equation refit??without adjustment for race. BUN/Creatinine Ratio 19.2 LAB CHEMISTRY METHOD 01/08/2025 12:11 PM [facility] Calcium 9.5 8.5 - 10.5 mg/dL LAB CHEMISTRY METHOD 01/08/2025 12:11 PM [facility] Blood Venous blood specimen / Unknown Venipuncture / Unknown 01/08/2025 6:30 AM EDT 01/08/2025 11:21 AM EDT us Ashley Gonzáles MD LAB BLOOD ORDERABLES Final Resul t [facility] [address] [place] [address], [place] [phone] * (ABNORMAL) Complete blood count (01/08/2025 6:30 AM EDT) WBC 4.5(L) 4.8 - 10.8 K/mcL LAB HEMETOLOGY METHOD 01/08/2025 12:19 PM EDT [facility] RBC 3.00(L) 3.80 - 4.80 M/mcL LAB HEMETOLOGY METHOD 01/08/2025 12:19 PM EDT [facility] Hemoglobin 9.4(L) 11.5 - 16.0 g/dL LAB HEMETOLOGY METHOD 01/08/2025 12:19 PM EDT [facility] Hematocrit 29.8(L) 35.0 - 47.0 % LAB HEMETOLOGY METHOD 01/08/2025 12:19 PM EDT [facility] MCV 98.7(H) 79.0 - 98.0 FL LAB HEMETOLOGY METHOD 01/08/2025 12:19 PM EDT [facility] MCH 31.1 27.0 - 32.0 pcg LAB HEMETOLOGY METHOD 01/08/2025 12:19 PM EDT [facility] MCHC 31.5(L) 32.0 - 37.0 g/dL LAB HEMETOLOGY METHOD 01/08/2025 12:19 PM EDT [facility] RDW 14.2 11.0 - 15.0 % LAB HEMETOLOGY METHOD 01/08/2025 12:19 PM T [facility] Platelets 187 130 - 400 K/mcL LAB HEMETOLOGY METHOD 01/08/2025 12:19 PM EDT [facility] MPV 11.2(H) 7.0 - 11.0 FL LAB HEMETOLOGY METHOD 01/08/2025 12:19 PM EDT [facility] NRBC 0.0 <1.0 % LAB HEMETOLOGY METHOD 01/08/2025 12:19 PM EDT [facility] NRBC Absolute 0.00 <0.10 K/mcL LAB HEMETOLOGY METHOD 01/08/2025 12:19 PM EDT [facility] Blood Venous blood specimen / Unknown Venipuncture / Unknown 01/08/2025 6:30 AM EDT 01/08/2025 11:21 AM EDT us Ashley Gonzáles MD LAB BLOOD ORDERABLES Final Resul t [facility] [address] [place] [address], documented in this encounter Visit Diagnoses Diagnosis Essential (primary) hypertension Unspecified essential hypertension Hyperlipidemia, unspecified Shortness of breath documented in this encounter Care Teams Dixonac Operator Relationship Specialty Start Date End Date Fe León MD [address] [place] [address] [address] [place] [phone] PCP - General Internal Medicine 01/30/25 documented as of this encounter
--- OUTSIDE RECORDS SUMMARY | 2025-02-01 11:02 | XMS_ITS | Clinical Summary ---
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 [facility] MCHC 31.3(L) 32.0 - 37.0 g/dL LAB HEMETOLOGY METHOD 01/15/2025 10:36 AM [facility] RDW 13.5 11.0 - 15.0 % LAB HEMETOLOGY METHOD 01/15/2025 10:36 AM [facility] Platelets 243 130 - 400 K/mcL LAB HEMETOLOGY METHOD 01/15/2025 10:36 AM [facility] MPV 11.7(H) 7.0 - 11.0 FL LAB HEMETOLOGY METHOD 01/15/2025 10:36 AM EDT [facility] NRBC 0.0 <1.0 % LAB HEMETOLOGY METHOD 01/15/2025 10:36 AM EDT [facility] NRBC Absolute 0.00 <0.10 K/mcL LAB HEMETOLOGY METHOD 01/15/2025 10:36 AM [facility] Blood Venous blood specimen / Unknown Venipuncture / Unknown 01/15/2025 6:38 AM EDT 01/15/2025 9:33 AM EDT us Ashley Gonzáles MD LAB BLOOD ORDERABLES Final Resul t [facility] [address] [place] [address], [place] [phone] * Basic metabolic panel (01/15/2025 6:38 AM EDT) Only the most recent of9 resultswithin the time period is included. Sodium 140 133 - 145 mmol/L LAB CHEMISTRY METHOD 01/15/2025 10:31 AM [facility] Potassium 3.8 3.5 - 5.5 mmol/L LAB CHEMISTRY METHOD 01/15/2025 10:31 AM [facility] Chloride 104 96 - 110 mmol/L LAB CHEMISTRY METHOD 01/15/2025 10:31 AM [facility] CO2 31 21 - 32 mmol/L LAB CHEMISTRY METHOD 01/15/2025 10:31 AM [facility] Anion Gap 5 3 - 11 LAB CHEMISTRY METHOD 01/15/2025 10:31 AM [facility] Glucose 90 70 - 100 mg/dL LAB CHEMISTRY METHOD 01/15/2025 10:31 AM [facility] BUN 10 5 - 25 mg/dL LAB CHEMISTRY METHOD 01/15/2025 10:31 AM [facility] Creatinine 0.52 0.50 - 1.10 mg/dL LAB CHEMISTRY METHOD 01/15/2025 10:31 AM EDT [facility] eGFR 102 >=60 mL/min/1. 73m2 LAB CHEMISTRY METHOD 01/15/2025 10:31 AM EDT [facility] Comment:Calculation based on the??Chronic Kidney Disease Epidemiology Collaboration (CKD-EPI) equation refit??without adjustment for race. BUN/Creatinine Ratio 19.2 LAB CHEMISTRY METHOD 01/15/2025 10:31 AM EDT [facility] Calcium 9.3 8.5 - 10.5 mg/dL LAB CHEMISTRY METHOD 01/15/2025 10:31 AM EDT [facility] Blood Venous blood specimen / Unknown Venipuncture / Unknown 01/15/2025 6:38 AM EDT 01/15/2025 9:37 AM EDT Ashley Gonzáles MD LAB BLOOD ORDERABLES Final Resul t Performing Organization Address City/[facility]/ZIP Co de Phone Number [facility] [address] [place] [address], * XR Shoulder 2+ Views Left (01/09/2025 9:03 AM EDT) Only the most recent of3 resultswithin the time period is included. Narrative RIS PACS/VR - 01/09/2025 9:03 AM EDT This order has been auto-finalized and does not contain a result. Kristopher Padgett MD IMG XR PROCEDURES Final R esult Performing Organization Address City/[facility]/ZIP Co de Phone Number [facility]IS PACS/VR * Magnesium (01/05/2025 8:25 AM EDT) Only the most recent of5 resultswithin the time period is included. Magnesium 1.9 1.9 - 2.6 mg/dL LAB CHEMISTRY METHOD 01/05/2025 9:42 AM EDT [facility] Blood Venous blood specimen / Unknown Venipuncture / Unknown 01/05/2025 8:25 AM EDT 01/05/2025 9:08 AM EDT us Rosy Lieberman MD LAB BLOOD ORDERABLES Fin al Result [facility] [address] [place] [address], [place] [phone] * CT Abdomen Pelvis w Contrast (01/04/2025 4:08 PM EDT) Anatomical Region Laterality Modality Body Computed Tomogra phy 01/04/2025 4:15 PM EDT Impressions 01/04/2025 4:22 PM EDT Sequelae of chronic sigmoid diverticulitis as described above. Cholelithiasis with mild stranding adjacent to the gallbladder. ??The gallbladder is not distended. Lower abdominal wall anasarca or inflammatory change which extends into the lower extremities. ??No subcutaneous drainable fluid collection or abscess. ??No soft tissue gas. -------- FINAL REPORT -------- Dictated By: Kd Stoner Dictated Date: 01/04/2025 16:15 ET Assigned Physician: Kd Stoner Reviewed and Electronically Signed By: Kd Stoner Signed Date: 01/04/2025 16:22 ET Workstation ID: [id number] Transcribed By: Self Edit Transcribed Date: 01/04/2025 16:15 ET Narrative 01/04/2025 4:22 PM EDT PROCEDURE: CT ABDOMEN/PELVIS WITH CONTRAST INDICATION: Abdominal pain, acute, nonlocalized RLQ tenderness, edema RLE TECHNIQUE: CT of the abdomen and pelvis following the intravenous administration of 90cc Isovue 370. Multiplanar reformats. The examination was performed utilizing dose reduction techniques. Total DLP 1023 COMPARISON: ??05/14/2021 FINDINGS: ?? LOWER THORAX: Atelectasis at the lung bases. HEPATOBILIARY: No focal liver lesions. Cholelithiasis. ??Nonspecific pericholecystic stranding. SPLEEN: No focal lesion. PANCREAS: No focal mass or ductal dilatation. ADRENALS: No nodules. KIDNEYS/URETERS: Normal. ??No mass or hydronephrosis. PELVIC ORGANS/BLADDER: Mildly distended bladder. PERITONEUM / RETROPERITONEUM: No ascites or free air. No retroperitoneal lymphadenopathy. VESSELS: Scattered atherosclerotic calcifications throughout the aorta and its major branches. No aneurysm. ??Gastroduodenal artery embolization. GI TRACT: There is diverticulosis with chronic thickening of the sigmoid colon suggestive of diverticulitis. ??There is a small left adnexal collection communicating with the colon measuring 1.8 cm. BONES AND SOFT TISSUES: Osteopenia and degenerative changes. ??No acute fracture. ??Remote rib deformities. ??Superior endplate deformities at L2 and L3 with kyphoplasty changes at T12. ??There is possible avascular necrosis developing of the right femoral head. There is lower body wall edema/inflammatory changes which extends into the right ??greater than left lower extremity. Procedure Note Kd Stoner MD - 01/04/2025 PROCEDURE: CT ABDOMEN/PELVIS WITH CONTRAST INDICATION: Abdominal pain, acute, nonlocalized RLQ tenderness, edema RLE TECHNIQUE: CT of the abdomen and pelvis following the intravenousadministration of 90cc Isovue 370. Multiplanar reformats. The examinationwas performed utilizing dose reduction techniques. Total DLP 1023 COMPARISON: 05/14/2021 FINDINGS: LOWER THORAX: Atelectasis at the lung bases. HEPATOBILIARY: No focal liver lesions. Cholelithiasis. Nonspecificpericholecystic stranding. SPLEEN: No focal lesion. PANCREAS: No focal mass or ductal dilatation. ADRENALS: No nodules. KIDNEYS/URETERS: Normal. No mass or hydronephrosis. PELVIC ORGANS/BLADDER: Mildly distended bladder. PERITONEUM / RETROPERITONEUM: No ascites or free air. No retroperitoneallymphadenopathy. VESSELS: Scattered atherosclerotic calcifications throughout the aorta andits major branches. No aneurysm. Gastroduodenal artery embolization. GI TRACT: There is diverticulosis with chronic thickening of the sigmoidcolon suggestive of diverticulitis. There is a small left adnexalcollection communicating with the colon measuring 1.8 cm. BONES AND SOFT TISSUES: Osteopenia and degenerative changes. No acutefracture. Remote rib deformities. Superior endplate deformities at L2and L3 with kyphoplasty changes at T12. There is possible avascularnecrosis developing of the right femoral head. There is lower body walledema/inflammatory changes which extends into the right greater than leftlower extremity. IMPRESSION: Sequelae of chronic sigmoid diverticulitis as described above. Cholelithiasis with mild stranding adjacent to the gallbladder. Thegallbladder is not distended. Lower abdominal wall anasarca or inflammatory change which extends intothe lower extremities. No subcutaneous drainable fluid collection orabscess. No soft tissue gas. -------- FINAL REPORT -------- Dictated By: Kd Stoner Dictated Date: 01/04/2025 16:15 ET Assigned Physician: Kd Stoner Reviewed and Electronically Signed By: Kd Stoner Signed Date: 01/04/2025 16:22 ET Workstation ID: [id number] Transcribed By: Self Edit Transcribed Date: 01/04/2025 16:15 ET us Bella ANDREWS IMG CT PROCEDURES Final Re sult * Vascular US duplex lower extremity venous right (01/04/2025 4:06 PM EDT) Anatomical Region Laterality Modality Vascular, Abdomen Ultrasound 01/04/2025 3:59 PM EDT Impressions 01/04/2025 3:59 PM EDT NO RIGHT LOWER EXTREMITY DEEP VENOUS THROMBOSIS. -------- FINAL REPORT -------- Dictated By: Kd Stoner Dictated Date: 01/04/2025 15:59 ET Assigned Physician: Kd Stoner Reviewed and Electronically Signed By: Kd Stoner Signed Date: 01/04/2025 15:59 ET Workstation ID: [id number] Transcribed By: Self Edit Transcribed Date: 01/04/2025 15:59 ET Narrative 01/04/2025 3:59 PM EDT Ultrasound duplex right lower extremity. INDICATION: edema right leg TECHNIQUE: 2-D and color Doppler imaging of the right lower extremity venous vasculature with compression and augmentation maneuvers. COMPARISON: No priors available. FINDINGS: There is normal flow, compression, and augmentation from the common femoral through the popliteal vein. No fluid collection. Procedure Note Kd Stoner MD - 01/04/2025 Ultrasound duplex right lower extremity. INDICATION: edema right leg TECHNIQUE: 2-D and color Doppler imaging of the right lower extremityvenous vasculature with compression and augmentation maneuvers. COMPARISON: No priors available. FINDINGS: There is normal flow, compression, and augmentation from the commonfemoral through the popliteal vein. No fluid collection. IMPRESSION: NO RIGHT LOWER EXTREMITY DEEP VENOUS THROMBOSIS. -------- FINAL REPORT -------- Dictated By: Kd Stoner Dictated Date: 01/04/2025 15:59 ET Assigned Physician: Kd Stoner Reviewed and Electronically Signed By: Kd Stoner Signed Date: 01/04/2025 15:59 ET Workstation ID: [id number] Transcribed By: Self Edit Transcribed Date: 01/04/2025 15:59 ET Bella ANDREWS CV VASCULAR PROCEDURES Fin al Result * Troponin I high sensitivity (01/04/2025 3:27 PM EDT) Only the most recent of2 resultswithin the time period is included. High Sensitivity Troponin I 15 <=54 ng/L LAB CHEMISTRY METHOD 01/04/2025 4:14 PM EDT [facility] Blood Venous blood specimen / Unknown Venipuncture / Unknown 01/04/2025 3:27 PM EDT 01/04/2025 3:35 PM EDT Narrative [facility] - 01/04/2025 4:14 PM EDT High levels of biotin in samples may falsely decrease hsTroponin values. ??Use caution when interpreting hsTroponin results in patients taking biotin who exhibit renal impairment (eGFR <60) or in patients taking more than 20 mg/day of biotin. Bella ANDREWS LAB BLOOD ORDERABLES Final Result [facility] [address] [place] [address], [place] [phone] * XR Chest 2 Views (01/04/2025 1:40 PM EDT) Anatomical Region Laterality Modality Body Radiographic Dennise ging 01/04/2025 1:42 PM EDT Impressions 01/04/2025 1:44 PM EDT FINDINGS/IMPRESSION: Two views the chest demonstrating coarse reticular markings at the bases which could represent scarring or volume loss. ??Borderline heart size without pulmonary edema. ??Degenerative osseous changes, remote right clavicle fracture and postoperative changes of the left humerus. ??Kyphoplasty changes at the thoracolumbar junction. -------- FINAL REPORT -------- Dictated By: Kd Stoner Dictated Date: 01/04/2025 13:42 ET Assigned Physician: Kd Stoner Reviewed and Electronically Signed By: Kd Stoner Signed Date: 01/04/2025 13:44 ET Workstation ID: [id number] Transcribed By: Self Edit Transcribed Date: 01/04/2025 13:42 ET Narrative 01/04/2025 1:44 PM EDT XR CHEST 2 VIEWS INDICATION: chest pain TECHNIQUE: XR CHEST 2 VIEWS COMPARISON: No priors available. Procedure Note Kd Stoner MD - 01/04/2025 XR CHEST 2 VIEWS INDICATION: chest pain TECHNIQUE: XR CHEST 2 VIEWS COMPARISON: No priors available. IMPRESSION: FINDINGS/IMPRESSION: Two views the chest demonstrating coarse reticularmarkings at the bases which could represent scarring or volume loss.Borderline heart size without pulmonary edema. Degenerative osseouschanges, remote right clavicle fracture and postoperative changes of theleft humerus. Kyphoplasty changes at the thoracolumbar junction. -------- FINAL REPORT -------- Dictated By: Kd Stoner Dictated Date: 01/04/2025 13:42 ET Assigned Physician: Kd Stoner Reviewed and Electronically Signed By: Kd Stoner Signed Date: 01/04/2025 13:44 ET Workstation ID: [id number] Transcribed By: Self Edit Transcribed Date: 01/04/2025 13:42 ET Bella ANDREWS IMG XR PROCEDURES Final Re sult * ECG 12 lead (01/04/2025 1:13 PM EDT) Ventricular Rate ECG 86 BPM GEMUSE Atrial Rate 86 BPM GEMUSE P-R Interval 176 ms GEMUSE QRS Duration 76 ms GEMUSE Q-T Interval 416 ms GEMUSE QTc 497 ms GEMUSE P Wave [place] 26 degrees GEMUSE R [place] 1 degrees GEMUSE T [place] 17 degrees GEMUSE ECG Interpretation Normal sinus rhythm Possible Left atrial enlargement Left ventricular hypertrophy Prolonged QT Abnormal ECG When compared with ECG of 01-OCT-2024 23:06, Sinus rhythm has replaced Atrial fibrillation T wave inversion less evident in Inferior leads Nonspecific T wave abnormality no longer evident in Lateral leads Confirmed by Jose QUISPE JOHN ([id number]) on 01/04/2025 8:29:44 PM GEMUSE 01/04/2025 1:13 PM EDT 01/04/2025 8:29 PM EDT us Bella ANDREWS ECG ORDERABLES Final Resu lt GEMUSE * (ABNORMAL) CBC auto differential (01/04/2025 12:45 PM EDT) Only the most recent of4 resultswithin the time period is included. [facility] WBC 6.8 4.8 - 10.8 K/mcL LAB HEMETOLOGY METHOD 01/04/2025 1:18 PM EDT [facility] RBC 3.50(L) 3.80 - 4.80 M/mcL LAB HEMETOLOGY METHOD 01/04/2025 1:18 PM EDT [facility] Hemoglobin 10.9(L) 11.5 - 16.0 g/dL LAB HEMETOLOGY METHOD 01/04/2025 1:18 PM EDT [facility] Hematocrit 34.0(L) 35.0 - 47.0 % LAB HEMETOLOGY METHOD 01/04/2025 1:18 PM EDT [facility] MCV 96.6 79.0 - 98.0 FL LAB HEMETOLOGY METHOD 01/04/2025 1:18 PM EDT [facility] MCH 31.0 27.0 - 32.0 pcg LAB HEMETOLOGY METHOD 01/04/2025 1:18 PM EDT [facility] MCHC 32.1 32.0 - 37.0 g/dL LAB HEMETOLOGY METHOD 01/04/2025 1:18 PM EDT [facility] RDW 14.5 11.0 - 15.0 % LAB HEMETOLOGY METHOD 01/04/2025 1:18 PM EDT [facility] Platelets 271 130 - 400 K/mcL LAB HEMETOLOGY METHOD 01/04/2025 1:18 PM EDT [facility] MPV 10.9 7.0 - 11.0 FL LAB HEMETOLOGY METHOD [facility]/04[facility]25 [facility] NRBC 0.0 <1.0 % LAB HEMETOLOGY METHOD 01/04/2025 1:18 PM EDT [facility] NRBC Absolute 0.00 <0.10 K/mcL LAB HEMETOLOGY METHOD 01/04/2025 1:18 PM EDT [facility] Neutrophils Relative 62.7 % LAB HEMETOLOGY METHOD 01/04/2025 1:[facility] Lymphocytes Relative 24.8 % LAB HEMETOLOGY METHOD 01/04/2025 1:18 [facility] Monocytes Relative 8.7 % LAB HEMETOLOGY METHOD 01/04/2025 1:18 PM EDT [facility] Eosinophils Relative 2.6 % LAB HEMETOLOGY METHOD 01/04/2025 1:18 PM EDT [facility] Basophils Relative 0.9 % LAB HEMETOLOGY METHOD 01/04/2025 1:18 PM [facility] Immature Granulocytes Relative 0.3 % LAB HEMETOLOGY METHOD 01/04/2025 1:18 PM EDT [facility] Neutrophils Absolute 4.27 1.50 - 7.00 K/mcL LAB HEMETOLOGY METHOD 01/04/2025 1:18 PM EDT [facility] Lymphocytes Absolute 1.69 1.00 - 5.00 K/mcL LAB HEMETOLOGY METHOD 01/04/2025 1:18 PM EDT [facility] Monocytes Absolute 0.59 0.20 - 1.00 K/mcL LAB HEMETOLOGY METHOD 01/04/2025 1:18 PM EDT [facility] Eosinophils Absolute 0.18 0.00 - 0.50 K/[facility] LAB HEMETOLOGY METHOD 01/04/2025 1:18 PM EDT [facility] Basophils Absolute 0.06 0.00 - 0.20 K/mcL LAB HEMETOLOGY METHOD 01/04/2025 1:18 PM EDT [facility] Immature Granulocytes Absolute 0.02 0.00 - 0.03 K/[facility] LAB HEMETOLOGY METHOD 01/04/2025 1:18 PM EDT [facility] Blood Venous blood specimen / Unknown Venipuncture / Unknown 01/04/2025 12:45 PM EDT 01/04/2025 1:02 PM EDT Bella ANDREWS LAB BLOOD ORDERABLES Final Result [facility] [address] [place] [address], * B-type natriuretic peptide (01/04/2025 12:45 PM EDT) BNP 97 <=100 pcg/mL LAB CHEMISTRY METHOD 01/04/2025 1:41 PM EDT [facility] Blood Venous blood specimen / Unknown Venipuncture / Unknown 01/04/2025 12:45 PM EDT 01/04/2025 1:02 PM EDT Bella ANDREWS LAB BLOOD ORDERABLES Final Result Performing Organization Address City/[facility]/ZIP Co de Phone Number [facility] [address] [place] [address], [place] [phone] * Lipase (01/04/2025 12:45 PM EDT) Lipase 59 13 - 75 unit/L LAB CHEMISTRY METHOD 01/04/2025 1:42 PM EDT [facility] Blood Venous blood specimen / Unknown Venipuncture / Unknown 01/04/2025 12:45 PM EDT 01/04/2025 1:02 PM EDT Bella ANDREWS LAB BLOOD ORDERABLES Final Result Performing Organization Address [facility]/ZIP Co de Phone Number [facility] [address] [place] [address], [place] [phone] * (ABNORMAL) Comprehensive metabolic panel (01/04/2025 12:45 PM EDT) Pathologist [facility] Sodium 139 133 - 145 mmol/L LAB CHEMISTRY METHOD 01/04/2025 1:42 PM T [facility] Potassium 3.1(L) 3.5 - 5.5 mmol/L LAB CHEMISTRY METHOD 01/04/2025 1:42 PM EDT [facility] Comment:Hemolysis present Chloride 99 96 - 110 mmol/L LAB CHEMISTRY METHOD 01/04/2025 1:42 PM EDT [facility] CO2 30 21 - 32 mmol/L LAB CHEMISTRY METHOD 01/04/2025 1:42 PM EDT [facility] Anion Gap 10 3 - 11 LAB CHEMISTRY METHOD 01/04/2025 1:[facility] Glucose 107(H) 70 - 100 mg/dL LAB CHEMISTRY METHOD 01/04/2025 1:42 PM EDT [facility] BUN 10 5 - 25 mg/dL LAB CHEMISTRY METHOD 01/04/2025 1:42 PM [facility] Creatinine 0.63 0.50 - 1.10 mg/dL LAB CHEMISTRY METHOD 01/04/2025 1:42 PM [facility] eGFR 97 >=60 mL/min/1. 73m2 LAB CHEMISTRY METHOD 01/04/2025 1:42 PM [facility] Comment:Calculation based on the??Chronic Kidney Disease Epidemiology Collaboration (CKD-EPI) equation refit??without adjustment for race. BUN/Creatinine Ratio 15.9 LAB CHEMISTRY METHOD 01/04/2025 1:42 PM [facility] Calcium 9.2 8.5 - 10.5 mg/dL LAB CHEMISTRY METHOD 01/04/2025 1:42 PM [facility] AST (SGOT) 69(H) 10 - 42 unit/L LAB CHEMISTRY METHOD 01/04/2025 1:42 PM [facility] Comment:Hemolysis present ALT (SGPT) 46 10 - 60 unit/L LAB CHEMISTRY METHOD 01/04/2025 1:42 PM [facility] Alkaline Phosphatase 136(H) 42 - 121 unit/L LAB CHEMISTRY METHOD 01/04/2025 1:42 PM [facility] Total Protein 6.4 6.0 - 8.0 g/dL LAB CHEMISTRY METHOD 01/04/2025 1:42 PM [facility] Albumin 3.3 3.2 - 5.0 g/dL LAB CHEMISTRY METHOD 01/04/2025 1:42 PM [facility] Total Bilirubin 0.6 0.0 - 1.4 mg/dL LAB CHEMISTRY METHOD 01/04/2025 1:42 PM [facility] Blood Venous blood specimen / Unknown Venipuncture / Unknown 01/04/2025 12:45 PM EDT 01/04/2025 1:02 PM EDT us Bella ANDREWS LAB BLOOD ORDERABLES Final Result Performing Organization Address City/[facility]/ZIP Co de Phone Number [facility] [address] [place] [address], [place] [phone] * EMG one limb (01/02/2025 4:51 PM EDT) Narrative Alba Srinivasan MD - 01/02/2025 4:53 PM EDT Please see the attached report us Kailey ANDREWS NEUROLOGY ORDERABLES Final R esult * XR Knee 1-2 Views Right (11/13/2024 10:02 AM EST) Narrative RIS PACS/VR - 11/13/2024 10:02 AM EST This order has been auto-finalized and does not contain a result. us Analy Becerra MD IMG XR PROCEDURES Final Result Performing Organization Address City/[facility] Co de Phone Number RIS PACS/VR * Lavender tube (11/05/2024 5:11 AM EST) Extra Tube Hold for add-ons. 11/05/2024 9:01 AM EST [facility] Comment:Auto resulted. Blood Venous blood specimen / Unknown Venipuncture / Unknown 11/05/2024 5:11 AM EST 11/05/2024 7:16 AM EST us Tamika Miller MD LAB BLOOD ORDERABLES Final Resul t Performing Organization Address City/[facility] Co de Phone Number [facility] [address] [place] [address], [place] [phone] * Creatinine, Serum - Every 7 Days (11/04/2024 5:44 AM EST) Creatinine 0.58 0.50 - 1.10 mg/dL LAB CHEMISTRY METHOD 11/04/2024 8:31 AM EST [facility] eGFR 99 >=60 mL/min/1. 73m2 LAB CHEMISTRY METHOD 11/04/2024 8:31 AM EST [facility] Comment: Calculation based on the??Chronic Kidney Disease Epidemiology Collaboration (CKD-EPI) equation refit??without adjustment for race. Calculation based on the??Chronic Kidney Disease Epidemiology Collaboration (CKD-EPI) equation refit??without adjustment for race. Blood Venous blood specimen / Unknown Venipuncture / Unknown 11/04/2024 5:44 AM EST 11/04/2024 6:53 AM EST Elizabet Sky MD LAB BLOOD ORDERABLES Final Re sult Performing Organization Address [facility]/ZIP Co de Phone Number [facility] [address] [place] [address], [place] [phone] * (ABNORMAL) POCT Glucose, blood (11/03/2024 8:22 AM EST) Glucose POCT 142(H) 70 - 100 mg/dL 11/03/2024 8:22 AM EST [facility] Blood Capillary blood specimen / Unknown 11/03/2024 8:22 AM EST 11/03/2024 8:23 AM EST Tamika Miller MD LAB POINT OF CARE TE ST DOCKED DEVICE UNSOLICITED RESULTS Final Result [facility] [address] [place] [address], [place] [phone] from Last 3 Months Insurance [employer] MEDICARE ADVANTAGE MEDICAID - [place] Advance Directives Documents on File Type Date Recorded Patient Supervisor In Charge Expl anation Health Care Decision (hx) 11/08/2023 AD RAMIREZ DIRECTIVE Health Care Decision (hx) 11/08/2023 AD RAMIREZ DIRECTIVE Health Care Decision (hx) 11/08/2023 AD RAMIREZ DIRECTIVE Health Care Decision (hx) 11/08/2023 AD RAMIREZ DIRECTIVE Health Care Decision (hx) 01/02/2014 AD RAMIREZ DIRECTIVE Health Care Decision (hx) 01/02/2014 AD RAMIREZ DIRECTIVE Health Care Decision (hx) 01/02/2014 AD RAMIREZ DIRECTIVE Health Care Decision (hx) 01/02/2014 AD RAMIREZ DIRECTIVE Health Care Decision (hx) 01/02/2014 AD RAMIREZ DIRECTIVE Health Care Decision (hx) 01/02/2014 AD RAMIREZ DIRECTIVE Health Care Decision (hx) 01/02/2014 AD RAMIREZ DIRECTIVE Health Care Decision (hx) 01/02/2014 AD RAMIREZ DIRECTIVE Health Care Decision (hx) 01/02/2014 AD RAMIREZ DIRECTIVE Health Care Decision (hx) 01/02/2014 AD RAMIREZ DIRECTIVE Health Care Decision (hx) 01/02/2014 AD RAMIREZ DIRECTIVE Health Care Decision (hx) 01/02/2014 AD RAMIREZ DIRECTIVE Health Care Decision (hx) 01/02/2014 AD RAMIREZ DIRECTIVE Health Care Decision (hx) 01/02/2014 AD RAMIREZ DIRECTIVE Health Care Decision (hx) 01/02/2014 AD RAMIREZ DIRECTIVE Health Care Decision (hx) 01/02/2014 AD RAMIREZ DIRECTIVE Health Care Decision (hx) 01/02/2014 AD RAMIREZ DIRECTIVE Health Care Decision (hx) 01/02/2014 AD RAMIREZ DIRECTIVE Health Care Decision (hx) 01/02/2014 AD RAMIREZ DIRECTIVE Health Care Decision (hx) 12/22/2013 AD RAMIREZ DIRECTIVE Health Care Decision (hx) 12/22/2013 AD RAMIREZ DIRECTIVE Health Care Decision (hx) 12/22/2013 AD RAMIREZ DIRECTIVE Health Care Decision (hx) 12/22/2013 AD RAMIREZ DIRECTIVE Health Care Decision (hx) 12/22/2013 AD RAMIREZ DIRECTIVE Health Care Decision (hx) 12/22/2013 AD RAMIREZ DIRECTIVE Health Care Decision (hx) 12/22/2013 AD RAMIREZ DIRECTIVE Health Care Decision (hx) 12/22/2013 AD RAMIREZ DIRECTIVE Health Care Decision (hx) 12/22/2013 AD RAMIREZ DIRECTIVE Health Care Decision (hx) 12/22/2013 AD RAMIREZ DIRECTIVE Health Care Decision (hx) 12/22/2013 AD RAMIREZ DIRECTIVE Health Care Decision (hx) 12/22/2013 AD RAMIREZ DIRECTIVE Health Care Decision (hx) 12/22/2013 AD RAMIREZ DIRECTIVE Health Care Decision (hx) 12/22/2013 AD RAMIREZ DIRECTIVE Health Care Decision (hx) 12/22/2013 AD RAMIREZ DIRECTIVE Health Care Decision (hx) 12/22/2013 AD RAMIREZ DIRECTIVE Health Care Decision (hx) 12/22/2013 AD RAMIREZ DIRECTIVE Health Care Decision (hx) 12/22/2013 AD RAMIREZ DIRECTIVE Health Care Decision (hx) 12/22/2013 AD RAMIREZ DIRECTIVE * Full Code - Confirmed (Latest Code Status on File) Date Activated Date Inactivated Comments 01/04/2025 6:07 PM 01/05/2025 5:[address] atus was ascertained in the following way: Code status discussion: discussion with patient To update the patient's code status, place a code status order. Do not modify or discontinue any currently active code status orders. * Full Code - Default Date Activated Date Inactivated Comments 10/30/2024 5:11 PM 11/06/2024 5:43 PM This is orde r is used when code status has not been discussed with the patient, or code status is otherwise unknown/unconfirmed To update the patient's code status, place a code status order. Do not modify or discontinue any currently active code status orders. * Full Code - Default Date Activated Date Inactivated Comments 09/30/2024 8:51 PM 10/04/2024 1:45 PM This is or cullen is used when code status has not been discussed with the patient, or code status is otherwise unknown/unconfirmed To update the patient's code status, place a code status order. Do not modify or discontinue any currently active code status orders. 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
--- OUTSIDE RECORDS SUMMARY | 2025-02-01 11:02 | XMS_ITS | Encounter Summary ---
Author Organization [facility] Address [address] [place] [address] Care Team Providers Care Public Affairs Specialist Name Role Phone Fe León MD Primary Care Provider Encounter Details Date Type Department Care Team (Late st Contact Info) Description 01/14/2025 Lab Requisition [facility] - Main Lab [address] [place] [phone] Ashley Gonzáles MD [address] [place] [address] Essential (primary) hypertension Social History Tobacco Use [...] for your loved ones. For example, child and adolescent psychiatrist or elderly care for an older adult? [...] Description 02/21/2025 9:40 AM EDT Office Visit [facility] - [facility] 102 300 [facility] 102 [place] [address] Cindy Arechiga NP 300 [facility] 154 [place] [phone] documented as of this encounter Procedures Procedure Name Priority Date/Time Associated Diagnosis Comments COMPLETE BLOOD COUNT Routine 01/15/2025 6:38 AM EDT Essential (primary) hypertension BASIC METABOLIC PANEL Routine 01/15/2025 6:38 AM EDT Essential (primary) hypertension documented in this encounter Results * Basic metabolic panel (01/15/2025 6:38 AM EDT) Sodium 140 133 - 145 mmol/L LAB CHEMISTRY METHOD 01/15/2025 10:31 AM [facility] Potassium 3.8 3.5 - 5.5 mmol/L LAB CHEMISTRY METHOD 01/15/2025 10:31 AM [facility] Chloride 104 96 - 110 mmol/L LAB CHEMISTRY METHOD 01/15/2025 10:31 AM [facility] CO2 31 21 - 32 mmol/L LAB CHEMISTRY METHOD 01/15/2025 10:31 AM [facility] Anion Gap 5 3 - 11 LAB CHEMISTRY METHOD 01/15/2025 10:31 AM [facility] Glucose 90 70 - 100 mg/dL LAB CHEMISTRY METHOD 01/15/2025 10:31 AM [facility] BUN 10 5 - 25 mg/dL LAB CHEMISTRY METHOD 01/15/2025 10:31 AM [facility] Creatinine 0.52 0.50 - 1.10 mg/dL LAB CHEMISTRY METHOD 01/15/2025 10:31 AM [facility] eGFR 102 >=60 mL/min/1. 73m2 LAB CHEMISTRY METHOD 01/15/2025 10:31 AM [facility] Comment:Calculation based on the??Chronic Kidney Disease Epidemiology Collaboration (CKD-EPI) equation refit??without adjustment for race. BUN/Creatinine Ratio 19.2 LAB CHEMISTRY METHOD 01/15/2025 10:31 AM [facility] Calcium 9.3 8.5 - 10.5 mg/dL LAB CHEMISTRY METHOD 01/15/2025 10:31 AM [facility] Blood Venous blood specimen / Unknown Venipuncture / Unknown 01/15/2025 6:38 AM EDT 01/15/2025 9:37 AM EDT Ashley Gonzáles MD LAB BLOOD ORDERABLES Final Resul t [facility] [address] [place] [address], * (ABNORMAL) Complete blood count (01/15/2025 6:38 AM EDT) WBC 5.5 4.8 - 10.8 K/mcL LAB HEMETOLOGY METHOD 01/15/2025 10:36 AM EDT [facility] RBC 2.90(L) 3.80 - 4.80 M/mcL LAB HEMETOLOGY METHOD 01/15/2025 10:36 AM EDT [facility] Hemoglobin 8.9(L) 11.5 - 16.0 g/dL LAB HEMETOLOGY METHOD 01/15/2025 10:36 AM EDT [facility] Hematocrit 28.4(L) 35.0 - 47.0 % LAB HEMETOLOGY METHOD 01/15/2025 10:36 AM EDT [facility] MCV 99.0(H) 79.0 - 98.0 FL LAB HEMETOLOGY METHOD 01/15/2025 10:36 AM EDT [facility] MCH 31.0 27.0 - 32.0 pcg LAB HEMETOLOGY METHOD 01/15/2025 10:36 AM EDT [facility] MCHC 31.3(L) 32.0 - 37.0 g/dL LAB HEMETOLOGY METHOD 01/15/2025 10:36 AM EDT [facility] RDW 13.5 11.0 - 15.0 % LAB HEMETOLOGY METHOD 01/15/2025 10:36 AM EDT [facility] Platelets 243 130 - 400 K/mcL LAB HEMETOLOGY METHOD 01/15/2025 10:36 AM EDT [facility] MPV 11.7(H) 7.0 - 11.0 FL LAB HEMETOLOGY METHOD 01/15/2025 10:36 AM EDT [facility] NRBC 0.0 <1.0 % LAB HEMETOLOGY METHOD 01/15/2025 10:36 AM EDT [facility] NRBC Absolute 0.00 <0.10 K/mcL LAB HEMETOLOGY METHOD 01/15/2025 10:36 AM EDT [facility] Blood Venous blood specimen / Unknown Venipuncture / Unknown 01/15/2025 6:38 AM EDT 01/15/2025 9:33 AM EDT us Ashley Gonzáles MD LAB BLOOD ORDERABLES Final Resul t [facility] [address] [place] [address], documented in this encounter Visit Diagnoses Diagnosis Essential (primary) hypertension Unspecified essential hypertension documented in this encounter Care Teams Public Affairs Specialist Relationship Specialty Start Date End Date Fe León MD [address] [place] [address] [address] [place] [phone] PCP - General Internal Medicine 01/30/25 documented as of this encounter
--- OUTSIDE RECORDS SUMMARY | 2025-02-01 11:02 | XMS_ITS | Encounter Summary ---
Author Organization [facility] Address [address] [place] [address] Care Team Providers Care Mail Courier Name Role Phone Fe León MD Primary Care Provider Encounter Details Date Type Department Care Team (Late st Contact Info) Description 11/11/2024 Lab Requisition [facility] - Main Lab [address] [facility] [place] [address] Dayanara Barber MD [address] [phone] Unspecified atrial fibrillation (CMS/HCC V24, CMS/HCC V28) [...] your loved ones. For example, early childhood services coordinator or elderly care for an older adult? [...] of Assessment Author No 09/30/2024 6:40 PM aBrb Anderson RN * Are you blind or [...] Description 02/21/2025 9:40 AM EDT Office Visit [facility] - [facility] [address] [facility] 102 [place] [address] Cindy Arechiga NP 300 [facility] 154 [place] [phone] documented as of this encounter Procedures Procedure Name Priority Date/Time Associated Diagnosis Comments COMPLETE BLOOD COUNT Routine 11/13/2024 6:18 AM EST Unspecified atrial fibrillation (CMS/HCC) BASIC METABOLIC PANEL Routine 11/13/2024 6:18 AM EST Unspecified atrial fibrillation (CMS/HCC) documented in this encounter Results * (ABNORMAL) Basic metabolic panel (11/13/2024 6:18 AM EST) Sodium 138 133 - 145 mmol/L LAB CHEMISTRY METHOD 11/13/2024 9:[address] [facility] Potassium 4.1 3.5 - 5.5 mmol/L LAB CHEMISTRY METHOD 11/13/2024 9:[address] [facility] Chloride 102 96 - 110 mmol/L LAB CHEMISTRY METHOD 11/13/2024 9:[address] [facility] CO2 33(H) 21 - 32 mmol/L LAB CHEMISTRY METHOD 11/13/2024 9:[address] [facility] Anion Gap 3 3 - 11 LAB CHEMISTRY METHOD 11/13/2024 9:[address] [facility] Glucose 89 70 - 100 mg/dL LAB CHEMISTRY METHOD 11/13/2024 9:[address] [facility] BUN 7 5 - 25 mg/dL LAB CHEMISTRY METHOD 11/13/2024 9:[address] [facility] Creatinine 0.50 0.50 - 1.10 mg/dL LAB CHEMISTRY METHOD 11/13/2024 9:[address] [facility] eGFR 103 >=60 mL/min/1. 73m2 LAB CHEMISTRY METHOD 11/13/2024 9:[address] [facility] Comment:Calculation based on the??Chronic Kidney Disease Epidemiology Collaboration (CKD-EPI) equation refit??without adjustment for race. BUN/Creatinine Ratio 14.0 LAB CHEMISTRY METHOD 11/13/2024 9:[address] [facility] Calcium 9.1 8.5 - 10.5 mg/dL LAB CHEMISTRY METHOD 11/13/2024 9:[address] [facility] Blood Venous blood specimen / Unknown Venipuncture / Unknown 11/13/2024 6:18 AM EST 11/13/2024 9:23 AM EST us Dayanara Barber MD LAB BLOOD ORDERABLES Fin al Result [facility] 299 [place] [address], * (ABNORMAL) Complete blood count (11/13/2024 6:18 AM EST) WBC 6.7 4.8 - 10.8 K/mcL LAB HEMETOLOGY METHOD 11/13/2024 9:35 AM EST [facility] RBC 2.90(L) 3.80 - 4.80 M/mcL LAB HEMETOLOGY METHOD 11/13/2024 9:[address] [facility] Hemoglobin 9.1(L) 11.5 - 16.0 g/dL LAB HEMETOLOGY METHOD 11/13/2024 9:[address] [facility] Hematocrit 29.0(L) 35.0 - 47.0 % LAB HEMETOLOGY METHOD 11/13/2024 9:[address] [facility] MCV 101.4(H) 79.0 - 98.0 FL LAB HEMETOLOGY METHOD 11/13/2024 9:[address] [facility] MCH 31.8 27.0 - 32.0 pcg LAB HEMETOLOGY METHOD 11/13/2024 9:[address] [facility] MCHC 31.4(L) 32.0 - 37.0 g/dL LAB HEMETOLOGY METHOD 11/13/2024 9:[address] [facility] RDW 16.1(H) 11.0 - 15.0 % LAB HEMETOLOGY METHOD 11/13/2024 9:[address] [facility] Platelets 297 130 - 400 K/mcL LAB HEMETOLOGY METHOD 11/13/2024 9:[address] [facility] MPV 11.4(H) 7.0 - 11.0 FL LAB HEMETOLOGY METHOD 11/13/2024 9:35 AM EST [facility] NRBC 0.0 <1.0 % LAB HEMETOLOGY METHOD 11/13/2024 9:35 AM EST [facility] NRBC Absolute 0.00 <0.10 K/mcL LAB HEMETOLOGY METHOD 11/13/2024 9:35 AM EST [facility] Blood Venous blood specimen / Unknown Venipuncture / Unknown 11/13/2024 6:18 AM EST 11/13/2024 9:23 AM EST Dayanara Barber MD LAB BLOOD ORDERABLES Fin al Result [facility] [address] [place] [address], documented in this encounter Visit Diagnoses Diagnosis Unspecified atrial fibrillation (CMS/HCC V24, CMS/HCC V28) documented in this encounter Care Teams Mail Courier Relationship Specialty Start Date End Date Fe León MD [address] [place] [phone] PCP - General Internal Medicine 01/30/25 documented as of this encounter
--- OUTSIDE RECORDS SUMMARY | 2025-02-01 11:02 | XMS_ITS | Encounter Summary ---
Author Organization [facility] Address [address] [place] [address] Care Team Providers Care Interior Mechanic Name Role Phone Fe León MD Primary Care Provider Reason for Visit * Reason Onset Date Comments Appointment 01/26/2025 Encounter Details Date Type Department Care Team ([facility] st Contact Info) Description 01/26/2025 Telephone [facility] - [facility] 154 300 [facility] 154 [place] [phone] Tariq Villalobos MD 300 [facility] 154 [place] [address] Appointment Social History Tobacco Use Types Packs/Day Years [...] for your loved ones. For example, children's counselor or elderly care for an older adult? [...] documented in this encounter Progress Notes * Pipo Villeda - 01/26/2025 8:09 AM EDT Patient called to reschedule her appointment today and when I booked it with her I noticed she has another appointment the same day as her new appointment date so if she calls back please confirm if that is ok to keep new appointment or see if we need to reschedule again. documented in this encounter Plan of Treatment Upcoming Encounters Date Type Department Care Team (Late st Contact Info) Description 02/21/2025 9:40 AM EDT Office Visit [facility] - [facility] [address] 300 [facility] 102 [place] [address] Cindy Arechiga NP [address] [place] [address] documented as of this encounter Visit Diagnoses Not on filedocumented in this encounter Care Teams Interior Mechanic Relationship Specialty Start Date End Date Fe León MD 75 [facility] [address] [place] [phone] PCP - General Internal Medicine 01/30/25 documented as of this encounter
== END 2025-02-01 10:13 | disposition home or self-care (01) ==
LOC: HO.HPS 09:36
PROVIDERS: PCP Internal Medicine; Visit Provider Hospitalist
DX: J96.11 Chronic respiratory failure with hypoxia (principal); J44.9 Chronic obstructive pulmonary disease, unspecified; Z14.1 Cystic fibrosis carrier; R05.3 Chronic cough; J30.0 Vasomotor rhinitis; D80.1 Nonfamilial hypogammaglobulinemia; J98.11 Atelectasis; E27.40 Unspecified adrenocortical insufficiency; D64.9 Anemia, unspecified
CPT/HCPCS: 99214; G2211

== ENCOUNTER → 2025-02-01 09:35 | Outpatient (BNVA) | payer MEDICARE, MEDICAID, SELFPAY | PROVIDERS: PCP Internal Medicine; Visit Provider Hospitalist | DX: J96.11 Chronic respiratory failure with hypoxia (principal); J44.9 Chronic obstructive pulmonary disease, unspecified; Z14.1 Cystic fibrosis carrier; R05.3 Chronic cough; J30.0 Vasomotor rhinitis; D80.1 Nonfamilial hypogammaglobulinemia; J98.11 Atelectasis; E27.40 Unspecified adrenocortical insufficiency; D64.9 Anemia, unspecified | CPT/HCPCS: 99212 ==

== ENCOUNTER 2025-05-01 10:17 | Outpatient (REF) | payer MEDICARE, MEDICAID, SELFPAY ==
--- OUTSIDE RECORDS SUMMARY | 2025-05-01 11:24 | XMS_ITS | Clinical Summary ---
Author Organization [facility] Address 100 [facility] 20 0 [place] [address] Phone Care Team Providers Care Director Of Counseling Name Role Phone Fe León MD Primary [...] 2 - PCV) 08/07/2016 08/07/2015 Influenza Vaccine (#1) 2025 08/07/2015 Pneumococcal Vaccine: Peds ( 0 to 5 Years) and At-Risk Patients (6 to 49 Years) Discontinued 08/07/2015 Hepatitis B Vaccine Aged Out No longe r eligible based on patient's age to complete this topic Insurance Medicare Medicaid [place] Medicare Medicaid [place] Care Teams Director Of Counseling Relationship Specialty Start Date End Date Fe León MD [address] [place] [address] [place] [phone] PCP - General Internal Medicine 03/31/21
--- OUTSIDE RECORDS SUMMARY | 2025-05-01 11:24 | XMS_ITS | Encounter Summary ---
Author Organization [facility] Address [address] [place] [address] Care Team Providers Care Marine Fire Fighter Name Role Phone Fe León MD Primary Care Provider Encounter Details Date Type Department Care Team (Late st Contact Info) Description 01/14/2025 Lab Requisition [facility] - Main Lab [address] [facility] [address] [facility] [place] [address] Ashley Gonzáles MD [address] [place] [address] Essential (primary) hypertension Social History Tobacco Use [...] care for your loved ones. For example, director child or elderly care for an older [...] Care Team (Late st Contact Info) Description 05/03/2025 12:40 PM EDT Office Visit [facility] Associates - [facility] [address] [facility] [address] [place] [address] Tricia Montague NP [address] [place] [address] documented as of this encounter Procedures Procedure Name Priority Date/Time Associated Diagnosis Comments COMPLETE BLOOD COUNT Routine 01/15/2025 6:38 AM EDT Essential (primary) hypertension BASIC METABOLIC PANEL Routine 01/15/2025 6:38 AM EDT Essential (primary) hypertension documented in this encounter Results * Basic metabolic panel (01/15/2025 6:38 AM EDT) [facility] Sodium 140 133 - 145 mmol/L LAB CHEMISTRY METHOD 01/15/2025 10:31 AM [facility] Potassium 3.8 3.5 - 5.5 mmol/L LAB CHEMISTRY METHOD 01/15/2025 10:31 AM [facility] Chloride 104 96 - 110 mmol/L LAB CHEMISTRY METHOD 01/15/2025 10:31 AM [facility] CO2 31 21 - 32 mmol/L LAB CHEMISTRY METHOD 01/15/2025 10:31 AM [facility] Anion Gap 5 3 - 11 LAB CHEMISTRY METHOD 01/15/2025 10:31 AM [facility] Glucose 90 70 - 100 mg/dL LAB CHEMISTRY METHOD 01/15/2025 10:31 AM [facility] BUN 10 5 - 25 mg/dL LAB CHEMISTRY METHOD 01/15/2025 10:31 AM [facility] Creatinine 0.52 0.50 - 1.10 mg/dL LAB CHEMISTRY METHOD 01/15/2025 10:31 AM [facility] eGFR 102 >=60 mL/min/1. 73m2 LAB CHEMISTRY METHOD 01/15/2025 10:31 AM [facility] Comment:Calculation based on the Chronic Kidney Disease Epidemiology Collaboration (CKD-EPI) equation refit without adjustment for race. BUN/Creatinine Ratio 19.2 LAB CHEMISTRY METHOD 01/15/2025 10:31 AM [facility] Calcium 9.3 8.5 - 10.5 mg/dL LAB CHEMISTRY METHOD 01/15/2025 10:31 AM [facility] Blood Venous blood specimen / Unknown Venipuncture / Unknown 01/15/2025 6:38 AM EDT 01/15/2025 9:37 AM EDT us Ashley Gonzáles MD LAB BLOOD ORDERABLES Final Resul t [facility] [address] [place] [address], * (ABNORMAL) Complete blood count (01/15/2025 6:38 AM EDT) [facility] Signature WBC 5.5 4.8 - 10.8 K/mcL LAB HEMETOLOGY METHOD 01/15/2025 10:36 AM EDT [facility] RBC 2.90(L) 3.80 - 4.80 M/mcL LAB HEMETOLOGY METHOD 01/15/2025 10:36 AM EDT [facility] Hemoglobin 8.9(L) 11.5 - 16.0 g/dL LAB HEMETOLOGY METHOD 01/15/2025 10:36 AM EDT [facility] Hematocrit 28.4(L) 35.0 - 47.0 % LAB HEMETOLOGY [facility] MCV 99.0(H) 79.0 - 98.0 FL LAB HEMETOLOGY METHOD 01/15/2025 10:36 AM EDT [facility] MCH 31.0 27.0 - 32.0 pcg LAB HEMETOLOGY METHOD [facility] MCHC 31.3(L) 32.0 - 37.0 g/dL LAB HEMETOLOGY METHOD 01/15/2025 10:36 AM EDT [facility] RDW 13.5 11.0 - 15.0 % LAB HEMETOLOGY METHOD 01/15/2025 10:36 AM EDT [facility] Platelets 243 130 - 400 K/mcL LAB HEMETOLOGY METHOD 01/15/2025 10:36 AM EDT [facility] MPV 11.7(H) 7.0 - 11.0 FL LAB HEMETOLOGY METHOD 01/15/2025 10:36 AM EDT [facility] NRBC 0.0 <1.0 % LAB HEMETOLOGY METHOD 01/15/2025 10:36 AM EDT [facility] NRBC Absolute 0.00 <0.10 K/mcL LAB HEMETOLOGY METHOD 01/15/2025 10:36 AM EDT [facility] Blood Venous blood specimen / Unknown Venipuncture / Unknown 01/15/2025 6:38 AM EDT 01/15/2025 9:33 AM EDT us Ashley Gonzáles MD LAB BLOOD ORDERABLES Final Resul t [facility] [address] [place] [address], documented in this encounter Visit Diagnoses Diagnosis Essential (primary) hypertension Unspecified essential hypertension documented in this encounter Additional Health Concerns Infection Onset Date Last Indicated Resolved Time Respiratory Rule-Out 02/10/2025 02/10/2025 025 6:58 AM EDT COVID-19 Rule-Out 02/10/2025 02/10/2025 02/10/2025 6:58 AM EDT Respiratory Rule-Out 02/10/2025 02/10/2025 025 6:58 PM EDT COVID-19 Rule-Out 02/10/2025 02/10/2025 02/10/2025 6:58 PM EDT Gastrointestinal Rule-Out 02/10/2025 02/10/2025 8:59 AM EDT C. difficile Rule-Out 02/10/2025 02/10/20252024 11:53 PM EDT C. difficile 02/10/2025 02/10/2025 03/13/2025 7:04 PM EDT Gastrointestinal Rule-Out 03/05/2025 03/05/2025 5:28 PM EDT Respiratory Rule-Out 03/05/2025 03/05/2025 025 1:00 AM EDT COVID-19 Rule-Out 03/05/2025 03/05/2025 03/06/2025 1:00 AM EDT Respiratory Rule-Out 03/20/2025 03/20/2025 025 4:23 AM EDT COVID-19 Rule-Out 03/20/2025 03/20/2025 03/20/2025 4:23 AM EDT documented as of this encounter Care Teams Marine Fire Fighter Relationship Specialty Start Date End Date Fe León MD [address] [place] [phone] PCP - General Internal Medicine 01/30/25 documented as of this encounter
[2025-05-01 11:29] LABS: Anion Gap 15 (12-20); Blood Urea Nitrogen 10 mg/dL (9-16); Calcium 8.9 mg/dL (8.4-10.2); Carbon Dioxide 35 mmol/L (22-29); Chloride 96 mmol/L (96-108); Estimated Glomerular Filt Rate > 60; Magnesium 1.7 mg/dL (1.6-2.6); Potassium 2.8 mmol/L (3.3-5.1); Sodium 143 mmol/L (135-145)
== END 2025-05-01 10:18 | disposition home or self-care (01) ==
LOC: HO.HVNA 10:17
PROVIDERS: Visit Provider Physician Assistant Medical
DX: E87.21 Acute metabolic acidosis (principal)
CPT/HCPCS: 36415; 80048; 83735

== ENCOUNTER 2025-05-07 10:50 | Outpatient (REF) | payer MEDICARE, MEDICAID, SELFPAY ==
--- OUTSIDE RECORDS SUMMARY | 2025-05-07 14:19 | XMS_ITS | Clinical Summary ---
Author Organization [facility] Address 100 [facility] 20 0 [place] [address] Phone Care Team Providers Care Leasing Property Manager Name Role Phone Fe León MD [...] Medicaid [place] Medicare Medicaid [place] Care Teams Leasing Property Manager Relationship Specialty Start Date End Date Fe León MD [address] [place] [address] [place] [phone] PCP - General Internal Medicine 03/31/21
--- OUTSIDE RECORDS SUMMARY | 2025-05-07 14:19 | XMS_ITS | Encounter Summary ---
Author Organization [facility] Address [address] [place] [address] Care Team Providers Care Showcase Trimmer Name Role Phone Fe León MD Primary Care Provider [phone] Encounter Details Date Type Department Care Team ([facility] st Contact Info) Description 05/03/2025 Telephone [facility] - [facility] [address] [facility] [address] [place] [address] Tricia Montague NP [address] [place] [phone] Social History Tobacco Use Types Packs/Day Years Used Date Smoking Tobacco: Former Cigarettes Smokeless Tobacco: Never Alcohol Use Standard Drinks/Week Comments Not Currently 0 (1 standard drink = 0.6 oz [...] got money to buy more. Never true 03/07/2025 Within the past 12 months th e food we bought just didn't last and we didn't have money to get more. Never true 03/07/2025 Dependent Care Answer Date Recorded Do you need help finding or paying for care for your loved ones. For example, child care center assistant director or elderly care for an older adult? [...] Safety Answer Date Record ed Physical Abuse 03/20/2025 Verbal Abuse 03/20/2025 Comments Unknown Sex and Gender Information Value Date Recorded Sex Assigned at Female 09/16/2024 3:36 PM EST Legal Sex Female 12:31 PM EST Gender Identity Female 09/16/2024 3:36 PM EST Sexual Orientation Straight 09/16/2024 3: 36 PM EST documented as of this encounter Functional Status * Are you deaf or do you have serious difficulty hearing? Answer Date of Assessment Author No 03/20/2025 7:45 AM EDT Ella Hargrove RN * Are you blind or do you have serious difficulty seeing, even when wearing glasses? Answer Date of Assessment Author No 03/20/2025 7:45 AM EDT Ella Hargrove RN * Do you have serious difficulty walking or climbing stairs? Answer Date of Assessment Author No 03/20/2025 7:45 AM EDT Ella Hargrove RN * Do you have serious difficulty dressing or bathing? Answer Date of Assessment Author No 03/20/2025 7:45 AM EDT Ella Hargrove RN * Because of a physical, mental, [...] or older) Answer Entry Date Author No 03/20/2025 7:45 AM EDT Ella Hargrove RN documented in this encounter Progress Notes * Tricia Montague NP - 05/03/2025 4:34 PM EDT Please arrange a consult with EP (next available) to discuss Watchman and Afib management. Thank you. documented in this encounter Plan of Treatment Upcoming Encounters Date Type Department Care Team (Late st Contact Info) Description 06/06/2025 9:10 AM EDT Office Visit [facility] - [address] [facility] [address] [place] [phone] Tricia Montague NP [address] [place] [address] documented as of this encounter Visit Diagnoses Not on filedocumented in this encounter Care Teams Showcase Trimmer Relationship Specialty Start Date End Date Fe León MD [address] [facility] [address] [place] [address] PCP - General Internal Medicine 01/30/25 documented as of this encounter
--- OUTSIDE RECORDS SUMMARY | 2025-05-07 14:19 | XMS_ITS | Clinical Summary ---
Author Organization [facility] Address [address] [place] [phone] Phone Care Team Providers Care Commercial Intern Name Role Phone Jean Paul Arteaga MD Primary Care Provider + Allergies No known active allergies Medications oxygen permeable lens edger Liqd by Miscellaneous route. Active pregabalin (LYRICA) 75 MG capsule Take 75 mg by mouth 2 (two) times a day. Active aspirin 81 MG EC tablet Take 81 mg by mouth daily. Active CALCIUM ORAL Take by mouth. Ac tive cephalexin (KEFLEX) 500 MG capsule Take 500 mg by mouth 4 (four) times a day. Active VITAMIN B-6 50 MG tablet *N/C*TAKE 1 TABLET BY MOUTH EVERY DAY 90 tablet 1 9 Active VITAMIN B-6 50 MG tablet TAKE 1 TABLET BY MOUTH EVERY DAY 90 tablet 1 0 Active Active Problems Problem Noted Date Diagnosed Date Other hereditary and idiopathic neuropathies Social History Tobacco Use Types Packs/Day Years Used Date Smoking Tobacco: Never Assessed Education Answer Date Recorded Are you interested in more education? Not on raza e 02/12/2023 Are you concerned about learning? Not on file 02/12/2023 No 02/12/2023 No 02/12/2023 Digital Access Answer Date Recorded No 03/15/2023 No 03/15/2023 No 03/15/2023 Reliable internet access at home? Not on file 03/15/2023 Device with a working camera? Not on file 05 / Comments Unknown Sex and Gender Information Value Date Recorded Sex Assigned at Not on file Legal Sex Female 12:50 PM EDT Gender Identity Not on file Sexual Orientation Not on file Last Filed Vital Signs Vital Sign Reading Time Taken Comments Blood Pressure 114/57 02/02/2018 1:08 PM EDT Pulse 95 02/02/2018 1:08 PM EDT Temperature 37.1 C (98.7 F) 02/02/2018 1:08 PM EDT Respiratory Rate - - Oxygen Saturation 88% 02/02/2018 1:08 PM EDT Inhaled Oxygen Concentration - - Weight 84.3 kg (185 lb 12.8 oz) 02/02/2018 1:08 PM EDT Height 161.3 cm (5' 3.5 ) 02/02/2018 1:08 PM EDT Body Mass Index 32.4 02/02/2018 1:08 PM EDT Plan of Treatment Upcoming Encounters Date Type Department Care Team (Late st Contact Info) Description 05/22/2025 9:30 AM EDT Office Visit [facility] [address] [facility], [address] [place] [address] Jamie Grady MD [address] [place] [id number] [email or web address] Health Maintenance Due Date Last Done Comments Adult Td,Tdap Booster 1957 LIPID PANEL 1957 DEPRESSION SCREENING 1969 SMOKING Hx and SMOKELESS TOB ACCO SCREENING 1970 HEPATITIS C SCREENING 1975 MAMMOGRAM 1997 COLOGUARD 2002 COLONOSCOPY 2002 FIT TEST 2002 SIGMOIDOSCOPY 2002 VIRTUAL COLONOSCOPY 2002 PNEUMOCOCCAL VACCINES (50+ y ears) (1 of 1 - PCV) 2007 ZOSTER VACCINES (1 of 2) 2007 OSTEOPOROSIS SCREENING INITI AL (ONE-TIME) 2022 COVID-19 VACCINE (1 - 2023-2 5 season) 2024 COLORECTAL CANCER SCREENING 03/05/2026 FOBT 03/05/2026 03/05/2025 RSV VACCINE (1 - 1-dose 75+ series) 2032 HEPATITIS A VACCINES Aged Out No long er eligible based on patient's age to complete this topic HIB VACCINES Aged Out No longer eligi ble based on patient's age to complete this topic MENINGOCOCCAL VACCINES (ACWY) Aged Out No longer eligible based on patient's age to complete this topic MENINGOCOCCAL VACCINES (B) Aged Out N o longer eligible based on patient's age to complete this topic Medical Devices Not on file Insurance MEDICARE PART A & B Member Subscriber Plan / Payer (Ef fective 2016-Present) Name:Tyrone Kayleigh Hinds Member ID:[id number] Relation to Subscriber:Self Name:Tyronemina HindsKayleigh Subscriber ID:[id number] Payer ID:[id number] Group ID:Not on file Type:Medicare Address: [facility] [employer] [facility] [address] [facility] [place] [phone] AETNA PPO MEDICARE REPLACEMENT [facility] MED[facility] PART A & B [facility] MEDICARE REPLACEMENT [facility] MEDICARE PART A & B [facility] ([place]) [address] [place] [id number] MEDICARE PART A & B [facility] MEDIC[facility] PART A & B [employer] PPO MEDICARE REPLACEMENT [facility] MEDICARE PART A & B [facility] MED[facility] PART A & B [employer] PPO MEDICARE REPLACEMENT [facility] MED[facility] PART A & B Member Subscriber Plan / Payer (Ef fective 2016-Present) Name:Kayleigh Moya Member ID:[id number] Relation to Subscriber:Self Name:Kayleigh Moya Subscriber ID:[id number] Payer ID:[id number] Group ID:Not on file Type:Medicare Address: [facility] [employer] [facility] [address] [place] [phone] [facility] RE[facility] MEDICARE PART A & B [employer] PPO MEDICARE REPLACEMENT [facility] Care Teams Commercial Intern Relationship Specialty Start Date End Date Jean Paul Arteaga MD [address] [facility] Medicine & [place] [address] PCP - General Internal Medicine 05/25/17 Additional Source Comments The information contained in this document represents components of the legal health record. It is not the complete legal health record.[facility]
[2025-05-07 14:36] LABS: Albumin Level 4.0 g/dL (3.5-5.0); Anion Gap 17 (12-20); Blood Urea Nitrogen 12 mg/dL (9-16); Calcium 9.1 mg/dL (8.4-10.2); Carbon Dioxide 27 mmol/L (22-29); Chloride 101 mmol/L (96-108); Estimated Glomerular Filt Rate > 60; Magnesium 1.9 mg/dL (1.6-2.6); Potassium 4.1 mmol/L (3.3-5.1); Sodium 141 mmol/L (135-145)
== END 2025-05-07 10:51 | disposition home or self-care (01) ==
LOC: HO.HVNA 10:50
PROVIDERS: Visit Provider Internal Medicine Cardiovascular Disease
DX: I48.0 Paroxysmal atrial fibrillation (principal)
CPT/HCPCS: 36415; 80048; 82040; 83735

== ENCOUNTER 2025-06-08 09:17 | Outpatient (AMB) | payer MEDICARE, MEDICAID, SELFPAY ==
--- OUTSIDE RECORDS SUMMARY | 2025-06-08 09:23 | XMS_ITS | Clinical Summary ---
Author Organization [facility] Address [address] [facility] [address] [place] [address] Phone Care Team Providers Care Transformation Analyst Name Role Phone Fe León MD Primary [...] Medicaid [place] Care Teams Transformation Analyst Relationship Specialty Start Date End Date Fe León MD [address] [place] [address] [place] [address] PCP - General Internal Medicine 03/31/21
--- OUTSIDE RECORDS SUMMARY | 2025-06-08 09:23 | XMS_ITS | Encounter Summary ---
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 It is not the complete legal health record.[facility]
--- OUTSIDE RECORDS SUMMARY | 2025-06-08 09:23 | XMS_ITS | Encounter Summary ---
Author Organization [facility] Address [address] [place] [address] Care Team Providers Care Cook Barbecue Name Role Phone Fe León MD Primary Care Provider [phone] Encounter Details Date Type Department Care Team (Late st Contact Info) Description 01/14/2025 Lab Requisition [facility] Main Lab [address] [facility] [address] [place] [address] Ashley Gonzáles MD [address] [place] [address] Essential (primary) hypertension Social History Tobacco Use [...] your loved ones. For example, child care specialist or elderly care for an older [...] Care Team (Late st Contact Info) Description 07/12/2025 11:10 AM EDT Consult [facility] - [facility] [address] [facility] [address] [place] [address] German Campbell MD [address] [facility] [address] [place] [address] documented as of this encounter Procedures Procedure Name Priority Date/Time Associated Diagnosis Comments COMPLETE BLOOD COUNT Routine 01/15/2025 6:38 AM EDT Essential (primary) hypertension BASIC METABOLIC PANEL Routine 01/15/2025 6:38 AM EDT Essential (primary) hypertension documented in this encounter Results * Basic metabolic panel (01/15/2025 6:38 AM EDT) Sodium 140 133 - 145 mmol/L LAB CHEMISTRY METHOD 01/15/2025 10:31 AM [facility] Potassium 3.8 3.5 - 5.5 mmol/L LAB CHEMISTRY METHOD 01/15/2025 10:31 AM [facility] Chloride 104 96 - 110 mmol/L LAB CHEMISTRY METHOD 01/15/2025 10:31 AM [facility] CO2 31 21 - 32 mmol/L LAB CHEMISTRY METHOD 01/15/2025 10:31 AM [facility] Anion Gap 5 3 - 11 LAB CHEMISTRY METHOD 01/15/2025 10:31 AM [facility] Glucose 90 70 - 100 mg/dL LAB CHEMISTRY METHOD 01/15/2025 10:31 AM [facility] BUN 10 5 - 25 mg/dL LAB CHEMISTRY METHOD 01/15/2025 10:31 AM [facility] Creatinine 0.52 0.50 - 1.10 mg/dL LAB CHEMISTRY METHOD 01/15/2025 10:31 AM [facility] eGFR 102 >=60 mL/min/1. 73m2 LAB CHEMISTRY METHOD 01/15/2025 10:31 AM [facility] Comment:Calculation based on the Chronic Kidney Disease Epidemiology Collaboration (CKD-EPI) equation refit without adjustment for race. BUN/Creatinine Ratio 19.2 LAB CHEMISTRY METHOD 01/15/2025 10:31 AM [facility] Calcium 9.3 8.5 - 10.5 mg/dL LAB CHEMISTRY METHOD 01/15/2025 10:31 AM [facility] Blood Venous blood specimen / Unknown Venipuncture / Unknown 01/15/2025 6:38 AM EDT 01/15/2025 9:37 AM EDT us Ashley Gonzáles MD LAB BLOOD ORDERABLES Final Resul t [facility] [address] [place] [address], * (ABNORMAL) Complete blood count (01/15/2025 6:38 AM EDT) [facility] Signature WBC 5.5 4.8 - 10.8 K/mcL LAB HEMETOLOGY METHOD 01/15/2025 10:36 AM EDT [facility] RBC 2.90(L) 3.80 - 4.80 M/mcL LAB HEMETOLOGY METHOD 01/15/2025 10:36 AM EDT [facility] Hemoglobin 8.9(L) 11.5 - 16.0 g/dL LAB HEMETOLOGY METHOD 01/15/2025 10:36 AM EDT [facility] Hematocrit 28.4(L) 35.0 - 47.0 % LAB HEMETOLOGY METHOD 01/15/2025 10:36 AM EDT [facility] MCV 99.0(H) 79.0 - 98.0 FL LAB HEMETOLOGY METHOD 01/15/2025 10:36 AM EDT [facility] MCH 31.0 27.0 - 32.0 pcg LAB HEMETOLOGY METHOD [facility] MCHC 31.3(L) 32.0 - 37.0 g/dL LAB HEMETOLOGY METHOD 01/15/2025 10:36 AM EDT [facility] RDW 13.5 11.0 - 15.0 % LAB HEMETOLOGY METHOD 01/15/2025 10:36 AM EDT [facility] Platelets 243 130 - 400 K/mcL LAB HEMETOLOGY METHOD 01/15/2025 10:36 AM EDT [facility] MPV 11.7(H) 7.0 - 11.0 FL LAB HEMETOLOGY METHOD 01/15/2025 10:36 AM EDT [facility] NRBC 0.0 <1.0 % LAB HEMETOLOGY METHOD 01/15/2025 10:36 AM EDT [facility] NRBC Absolute 0.00 <0.10 K/mcL LAB HEMETOLOGY METHOD 01/15/2025 10:36 AM EDT [facility] Blood Venous blood specimen / Unknown Venipuncture / Unknown 01/15/2025 6:38 AM EDT 01/15/2025 9:33 AM EDT us Ashley Gonzáles MD LAB BLOOD ORDERABLES Final Resul t [facility] [address] [place] [address], documented in this encounter Visit Diagnoses Diagnosis [...] documented as of this encounter Care Teams Cook Barbecue Relationship Specialty Start Date End Date Fe León MD [address] [place] [phone] PCP - General Internal Medicine 01/30/25 documented as of this encounter
--- NOTE | 2025-06-08 09:41 | A.OFFVIS_ITS ---
Vital Signs 06/08/25 09:56 Height 5 ft 3 in Weight 144 lb 6.444 oz BMI 25.6 BP 115/62 Blood Pressure Location Rt brachial Position Sitting Pulse 84 Pulse Source Pulse Oximeter Pulse Oximetry (%) 98 Oxygen Delivery Method Room Air Intake Visit Reasons: RA Intake Note: Patient presents for RA follow up. Allergies levofloxacin (Levaquin) Allergy (Severe, Verified 06/08/25 09:49) vomiting Medication List - Last Reconciled 06/08/25 by Djaa Womack MD albuterol sulfate 90 mcg/actuation 2 puffs inhalation Q6H PRN albuterol sulfate 2.5 mg (3 mL) inhalation Q6H PRN 30 days apixaban (Eliquis) 5 mg PO BID atorvastatin 40 mg PO BEDTIME budesonide 0.5 mg (2 mL) inhalation DAILY 30 days clopidogrel 75 mg PO DAILY CPAP (CPAP Machine/Device) As directed diltiazem HCl CD 240 mg PO DAILY duloxetine 30 mg PO BID xfzxhnbiluu-ttdbrruzf-zqbsmkrd 100-62.5-25 mcg (Trelegy Ellipta) 1 inh inhalation DAILY 30 days furosemide 20 mg PO DAILY guaifenesin ER (Mucus Relief ER) 600 mg PO Q12H ipratropium-albuterol 0.5 mg-3 mg(2.5 mg base)/3 mL mL inhalation QID magnesium oxide 400 mg PO DAILY metoprolol succinate ER 25 mg PO DAILY nebulizers As directed ondansetron HCl 4 mg PO Q8H PRN 14 days Oxygen Home Use As directed pantoprazole 40 mg PO BID phenytoin sodium extended (Dilantin) 30 mg PO DAILY potassium chloride ER 20 mEq PO DAILY spironolactone 25 mg PO DAILY sulfadiazine 1 g PO BID HPI Comments Details: Patient is a 70 year old female with COPD, HLD c/b PAD and CAD, depression, A fib, 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 Mason - On Kevzara 162 every 2 weeks and sulfasalazine 1g bid - Followed up after hospitalization for rotator cuff surgery c/b RSV infection - RA well controlled Since then has had several hospitalizations for HF exacerbations, COPD exacerbations Switched to Enbrel due to insurance issues Today - On SSZ - Enbrel stopped due to her multiple hospitalizations - Complains of pain in her legs and left arm that keeps her up at night described as shock like sensations - Bilateral knee pain, not able to bend down Rheumatologic History: (RF++ CCP-) Enbrel - February 2018-to March 2018 Humira-March 2018-April 2019 Kevzara January 2019- present Sulfasalazine- June 2017 - present Osteoporosis: follows at [facility] for this with Endocrinology Current Rheumatology Medication(s): Sulfasalazine 1000mg bid [facility] Medical History Afib Lower extremity edema Adrenal insufficiency RSV (respiratory syncytial virus infection) Atelectasis Hypercalciuria Hypogammaglobulinemia Vasomotor rhinitis Osteoporosis GERD (gastroesophageal reflux disease) HLD (hyperlipidemia) HTN (hypertension) History of CVA (cerebrovascular accident) Chronic cough Seropositive rheumatoid arthritis Chronic rheumatic arthritis Chronic respiratory failure COPD (chronic obstructive pulmonary disease) case management patient Cystic fibrosis carrier Surgical History Hx of shoulder surgery History of surgery Family History Son Cystic fibrosis Social History Household Members: None Alcohol intake: current Alcohol intake frequency: holidays/special occasions only Patient Tobacco Use Status: Former Tobacco user Tobacco use type: Cigarette Cigarettes Per Day: 10 Years Smoked: 20 e-Cigarette/Vaping Use: Never Used Review of Systems Const All systems reviewed & are unremarkable except as noted in HPI and below Physical Exam Exam Exam: Vital signs reviewed Physical Examination CONSTITUITIONAL Patient alert and cooperative. Well appearing and in no apparent painful distress MSK Hands * Right Hand: Able to make a fist. No synovitis * Left Hand: Not able to make a fist. Contractures noted. No synovitis Wrists * Right Wrist: Decreased ROM to flexion and extension. No swelling or TTP * Left Wrist: Decreased ROM to flexion and extension. No swelling or TTP Elbows * Right Elbow: Full ROM. No swelling or TTP. No TTP of the medial epicondyle. No TTP of the lateral epicondyle * Left Elbow: Full ROM. No swelling or TTP. No TTP of the medial epicondyle. No TTP of the lateral epicondyle Shoulders * Right shoulder: Decreased ROM * Left shoulder: Decreased ROM Knees * Right knee: Full ROM. No swelling noted. TTP of the knee joint line. * Left knee: Full ROM. No swelling noted. TTP of the knee joint line. * Crepitations felt bilaterally Ankles * Right ankle: No swelling. No TTP of the ankle joint * Left ankle: No swelling. No TTP of the ankle joint Feet * Right foot: Negative squeeze test * Left foot: Negative squeeze test Tender points? * No tenderness to palpation of the bilateral trapezius, supraspinatus, anterior costochondral junctions, bilateral suboccipital muscle insertions SKIN No rashes Vital Signs: Last Vital Signs Pulse 84 06/08/25 09:56 BP 115/62 06/08/25 09:56 Pulse Ox 98 06/08/25 09:56 Oxygen Delivery Method Room Air 06/08/25 09:56 BMI result Body Mass Index 25.6 Office Procedures AMB Joint Injection/Aspiration Joint Injection/Aspiration Details: Procedure was explained to the patient and informed consent was obtained. ? Risks associated with the procedure were discussed with the patient including but not limited to bleeding, infection, drug reactions and reactions to the topical anesthetic. Patient made aware of signs to look out for infectious complications. The area of interest was identified and confirmed with patient. ?This was subsequently cleaned with chlorhexidine x 2. ? The area was then anesthetized using ethyl chloride spray. 40 mg Kenalog with 1 cc 1% lidocaine was injected without issue. ?Minimal to no bleeding. ?Patient tolerated procedure. Primary Site: right knee Prep: site was prepped using aseptic technique and ethochloride spray was applied Injected: 40 mg of, Kenalog, with 1 mL of and 1% plain lidocaine Approach Used: anterior Procedure: The patient tolerated the procedure well Coding 58785 - Large joint Procedure code (CPT) selection complete AMB Joint Injection/Aspiration Joint Injection/Aspiration Details: Procedure was explained to the patient and informed consent was obtained. ? Risks associated with the procedure were discussed with the patient including but not limited to bleeding, infection, drug reactions and reactions to the topical anesthetic. Patient made aware of signs to look out for infectious complications. The area of interest was identified and confirmed with patient. ?This was subsequently cleaned with chlorhexidine x 2. ? The area was then anesthetized using ethyl chloride spray. 40 mg Kenalog with 1 cc 1% lidocaine was injected without issue. ?Minimal to no bleeding. ?Patient tolerated procedure. Primary Site: left knee Prep: site was prepped using aseptic technique and ethochloride spray was applied Injected: 40 mg of, Kenalog, with 1 mL of and 1% plain lidocaine Approach Used: anterior Procedure: The patient tolerated the procedure well Coding 61913 - Large joint Procedure code (CPT) selection complete Office Meds lidocaine (PF) 10 mg/mL (1 %) injection solution Performing Provider: Daja Womack MD Performing Location: [facility] Administered by: Tyree Sands RN on 06/08/25 11:06 Dose Route Admin Location Dispensed Lot Number Expiration Date [facility] [employer] 2 mL Infiltration right knee 2 mL [id number] 03/17/27 13479-786-92 [employer] Total Dispensed Waste 2 mL 0 % Kenalog 40 mg/mL suspension for injection Performing Provider: Daja Womack MD Performing Location: [facility] Administered by: Tyree Sands RN on 06/08/25 11:06 Dose Route Admin Location Dispensed Lot Number Expiration Date [facility] [employer] 40 mg intra-articular right knee 1 mL [id number] 04/16/26 [address]- 1 [employer] Total Dispensed Waste 1 mL 0 % lidocaine (PF) 10 mg/mL (1 %) injection solution Performing Provider: Daja Womack MD Performing Location: [facility] Administered by: Tyree Sands RN on 06/08/25 11:03 Dose Route Admin Location Dispensed Lot Number Expiration Date [facility] [employer] 2 mL Infiltration left knee 2 mL [id number] 03/17/27 76431-072-16 [employer] Total Dispensed Waste 2 mL 0 % Kenalog 40 mg/mL suspension for injection Performing Provider: Daja Womack MD Performing Location: [facility] Administered by: Tyree Sands RN on 06/08/25 11:03 Dose Route Admin Location Dispensed Lot Number Expiration Date [facility] [employer] 40 mg intra-articular left knee 1 mL [id number] 04/16/26 [address]-3 [employer] Total Dispensed Waste 1 mL 0 % Results Reviewed Results Reviewed: Laboratory Tests 03/09/23 12/13/23 05/07/25 12:27 13:55 10:50 WBC 9.2 RBC 2.84 L Hgb 9.0 L Hct 28.8 L Plt Count 302 D ESR 16 Sodium 141 Potassium 4.1 D Chloride 101 Carbon Dioxide 27 BUN 12 Creatinine 0.63 Assessment & Plan Assessment & Plan (1) Seropositive rheumatoid arthritis: Comment: (RF++ CCP-) Enbrel - February 2018-to March 2018 Humira-March 2018-April 2019 Ministeriozara January 2019- present Sulfasalazine- June 2017 - present Code(s): M05.9 - Rheumatoid arthritis with rheumatoid factor, unspecified Category: Medical Plan: #Seronegative RA Patient is a 70 y.o. female with seropositive RA here today for follow up Currently in remission Her complaints are likely related to her neuropathy. Not getting much benefit from Lyrica, will try alpha lipoic acid Plan - Start alpha lipoic acid 600mg daily - Continue SSZ 1000mg bid - RTC 6 months - Labs before visit: CBC, CMP, ESR, CRP (2) Polyarticular osteoarthritis: Code(s): M15.9 - Polyosteoarthritis, unspecified Plan: #Polyarticular OA polyarticular OA Not a candidate for oral NSAIDs S/p bilateral knee steroid injections (3) Encounter for monitoring sulfasalazine therapy: Code(s): Z51.81 - Encounter for therapeutic drug level monitoring; Z79.899 - Other penitentiary (current) drug therapy Plan: #Long-term Use of Sulfasalazine Discussed with patient the risks and benefits of sulfasalazine in the management of the rheumatic condition Benefits include: - Reduced pain, reduce mortality, maintenance of remission then reduction of flares Risks include: - GI upset, hemolysis (especially if G6PD deficiency), eosinophilia, headache, dizziness, rash, elevated LFTs Plan I spent 30 minutes reviewing the record and labs, taking a history, examining the patient, discussing the treatment plan, ordering diagnostic work up and documenting in the medical record Orders: Orders AMB Joint Injection/Aspiration Today M17.0 - Bilateral primary osteoarthritis of knee AMB Joint Injection/Aspiration Today M17.0 - Bilateral primary osteoarthritis of knee Medications: New alpha lipoic acid 600 mg PO DAILY 90 caps 1RF G62.9 - Polyneuropathy, unspecified Coding Level of Care Code Est Pt Level 4 (67454) Complex EM visit Add On G2211 Diagnoses Seropositive rheumatoid arthritis M05.9 Polyarticular osteoarthritis M15.9 Encounter for monitoring sulfasalazine therapy Z51.81; Z79.899 CPT Codes Coding - 03908 Large joint: 11784 - Large joint ([id number]) Coding - 34760 Large joint: 62280 - Large joint ([id number])
[2025-06-08 09:56] VITALS: BP 115/62; PULSE 84; O2SAT 98; BMI 25.6
== END 2025-06-08 10:46 | disposition home or self-care (01) ==
LOC: HO.RHES 09:18
PROVIDERS: PCP Internal Medicine; Visit Provider Student in an Organized Health Care Education/Training Program
DX: M05.79 Rheumatoid arthritis with rheumatoid factor of multiple sites without organ or systems involvement (principal); M15.9 Polyosteoarthritis, unspecified; M17.0 Bilateral primary osteoarthritis of knee; Z51.81 Encounter for therapeutic drug level monitoring; Z79.899 Other long term (current) drug therapy
CPT/HCPCS: 20610; 99214

== ENCOUNTER → 2025-06-08 09:17 | Outpatient (BNVA) | payer MEDICARE, MEDICAID, SELFPAY | PROVIDERS: PCP Internal Medicine; Visit Provider Student in an Organized Health Care Education/Training Program | DX: M05.9 Rheumatoid arthritis with rheumatoid factor, unspecified (principal); M17.0 Bilateral primary osteoarthritis of knee; Z79.899 Other long term (current) drug therapy | CPT/HCPCS: 20610; 99212; J2003; J3300 ==

== ENCOUNTER 2025-06-19 09:13 | Outpatient (AMB) | payer MEDICARE, MEDICAID, SELFPAY ==
--- NOTE | 2025-06-19 09:58 | HO.NEPHOV_ITS ---
Vital Signs 06/19/25 10:03 Height 5 ft 3 in Weight 145 lb 8 oz BMI 25.8 BP 110/60 Blood Pressure Location Rt brachial Position Sitting Pulse 77 Pulse Source Pulse Oximeter Pulse Oximetry (%) 93 Oxygen Delivery Method Room Air Intake Visit Reasons: R/s from 03/08/25-[facility] Manager [employer] Required: No Accompanied by: Self / Same As Patient Allergies levofloxacin (Levaquin) Allergy (Severe, Verified 06/19/25 10:03) vomiting HPI Comments Details: Kayleigh has history of renal artery stenosis as well as hypertension. She is on home O2 all the time. She has history of CVA without any significant deficits. She closely follows up with vascular surgery. She denies any worsening shortness of breath, orthopnea, pedal edema, orthostatic symptoms, hematuria or fever. She does not take any nonsteroidal anti-inflammatories. She has been having weakness of left hand weakness following fall and surgery. She has seen surgeon in [place] and has follow up there [facility] Medical History Afib Lower extremity edema Adrenal insufficiency RSV (respiratory syncytial virus infection) Atelectasis Hypercalciuria Hypogammaglobulinemia Vasomotor rhinitis Osteoporosis GERD (gastroesophageal reflux disease) HLD (hyperlipidemia) HTN (hypertension) History of CVA (cerebrovascular accident) Chronic cough Seropositive rheumatoid arthritis Chronic rheumatic arthritis Chronic respiratory failure COPD (chronic obstructive pulmonary disease) case management patient Cystic fibrosis carrier Surgical History Hx of shoulder surgery History of surgery Family History Son Cystic fibrosis Social History Household Members: None Alcohol intake: current Alcohol intake frequency: holidays/special occasions only Patient Tobacco Use Status: Former Tobacco user Tobacco use type: Cigarette Cigarettes Per Day: 10 Years Smoked: 20 e-Cigarette/Vaping Use: Never Used Review of Systems Const All systems reviewed & are unremarkable except as noted in HPI and below Physical Exam Vital Signs: Last Vital Signs Pulse 77 06/19/25 10:03 BP 110/60 06/19/25 10:03 Pulse Ox 93 06/19/25 10:03 Oxygen Delivery Method Room Air 06/19/25 10:03 BMI result Body Mass Index 25.8 Const General: comfortable and no acute distress Orientation/consciousness: patient oriented x3 HEENT Head: Yes normocephalic Mouth: Normal oral and palatal mucosa present Eyes EOM: EOMs intact bilaterally Neck Neck: Yes supple Resp Auscultation: clear to auscultation bilaterally Cardio Jugular venous distension: no JVD Rate: regular rate GI Palpation (GI): Soft to palpation Auscultation: normal bowel sounds General: Yes no CVA tenderness Back/Spine/Pelvis Back: no CVA tenderness Skin General skin exam: no rashes or lesions noted Neuro General: patient oriented x3 and moves all extremities Extrem General: Yes no pedal edema Results Reviewed Nephrology Results: Sodium, (135-145) 141 mmol/L 05/07/25 Potassium, (3.3-5.1) 4.1 mmol/L Δ 05/07/25 Chloride, (96-108) 101 mmol/L 05/07/25 Carbon Dioxide, (22-29) 27 mmol/L 05/07/25 BUN, (9-16) 12 mg/dL 05/07/25 Creatinine, (0.5-1.4) 0.63 mg/dL 05/07/25 Calcium, (8.4-10.2) 9.1 mg/dL 05/07/25 Assessment & Plan Assessment & Plan (1) Renal artery stenosis: Comment: Follows with Nephrology at [facility]( Dr Bateman) Code(s): I70.1 - Atherosclerosis of renal artery Category: Medical (2) Renovascular hypertension: Code(s): I15.0 - Renovascular hypertension Category: Medical Plan Kayleigh has peripheral arterial disease as well as renal artery stenosis. She has longstanding hypertension. Her renal functions have been stable. She is thought to have adrenal insufficiency and has a follow up with Endocrinology. She tries to be on a low-sodium diet. She avoids nonsteroidal anti- inflammatories. There is no indication for any renal angiogram, angioplasty or stenting of the renal artery now. I did not make any medication changes today. She will be closely followed up in our office for continued optimal care. Orders: Orders UA and rflx microscopic 6 Months I15.0 - Renovascular hypertension, I70.1 - Atherosclerosis of renal artery Protein Creatinine Ratio, Ur 6 Months I15.0 - Renovascular hypertension, I70.1 - Atherosclerosis of renal artery Electrolytes 6 Months I15.0 - Renovascular hypertension, I70.1 - Atherosclero sis of renal artery Creatinine 6 Months I15.0 - Renovascular hypertension, I70.1 - Atherosclerosis of renal artery Blood Urea Nitrogen 6 Months I15.0 - Renovascular hypertension, I70.1 - Atherosclerosis of renal artery Coding Level of Care Code Est Pt Level 4 (86195) Diagnoses Renal artery stenosis I70.1 Renovascular hypertension I15.0
[2025-06-19 10:03] VITALS: BP 110/60; PULSE 77; O2SAT 93; BMI 25.8
--- OUTSIDE RECORDS SUMMARY | 2025-06-19 10:06 | XMS_ITS | Encounter Summary ---
Author Organization [facility] Address [address] [place] [address] Care Team Providers Care Corporate Specialist Name Role Phone Fe León MD Primary Care Provider Encounter Details Date Type Department Care Team (Late st Contact Info) Description 01/08/[address] [facility] Lab [address] [place] [address] Ashley Gonzáles MD [address] [place] [address] Essential (primary) hypertension; Hyperlipidemia, unspecified; Shortness of [...] for your loved ones. For example, children's institution attendant or elderly care for an older [...] Info) Description 07/12/2025 11:10 AM EDT Consult [facility] [address] [facility] [address] [place] [id number] German Campbell MD [address] [place] [address] [place] [address] documented as of this encounter Procedures Procedure [...] mmol/L LAB CHEMISTRY METHOD 01/08/2025 12:11 PM [facility] Potassium 4.0 3.5 - 5.5 mmol/L LAB CHEMISTRY METHOD 01/08/2025 12:11 PM [facility] Chloride 103 96 - 110 mmol/L LAB CHEMISTRY METHOD 01/08/2025 12:11 PM [facility] CO2 32 21 - 32 mmol/L LAB CHEMISTRY METHOD 01/08/2025 12:11 PM [facility] Anion Gap 5 3 - 11 LAB CHEMISTRY METHOD 01/08/2025 12:11 PM [facility] Glucose 88 70 - 100 mg/dL LAB CHEMISTRY METHOD 01/08/2025 12:11 PM [facility] BUN 10 5 - 25 mg/dL LAB CHEMISTRY METHOD 01/08/2025 12:11 PM [facility] Creatinine 0.52 0.50 - 1.10 mg/dL LAB CHEMISTRY METHOD 01/08/2025 12:11 PM [facility] eGFR 102 >=60 mL/min/1. 73m2 LAB CHEMISTRY METHOD 01/08/2025 12:11 PM [facility] Comment:Calculation based on the Chronic Kidney Disease Epidemiology Collaboration (CKD-EPI) equation refit without adjustment for race. BUN/Creatinine Ratio 19.2 LAB CHEMISTRY METHOD 01/08/2025 12:11 PM [facility] Calcium 9.5 8.5 - 10.5 mg/dL LAB CHEMISTRY METHOD 01/08/2025 12:11 PM [facility] Blood Venous blood specimen / Unknown Venipuncture / Unknown 01/08/2025 6:30 AM EDT 01/08/2025 11:21 AM EDT Ashley Gonzáles MD LAB BLOOD ORDERABLES Final Resul t [facility] [address] [place] [address], * (ABNORMAL) Complete blood count (01/08/2025 6:30 AM EDT) WBC 4.5(L) 4.8 - 10.8 K/mcL LAB HEMETOLOGY METHOD 01/08/2025 12:[address] [facility] RBC 3.00(L) 3.80 - 4.80 M/mcL LAB HEMETOLOGY METHOD 01/08/2025 12:[address] [facility] Hemoglobin 9.4(L) 11.5 - 16.0 g/dL LAB HEMETOLOGY METHOD 01/08/2025 12:[address] [facility] Hematocrit 29.8(L) 35.0 - 47.0 % LAB HEMETOLOGY METHOD 01/08/2025 12:[address] [facility] MCV 98.7(H) 79.0 - 98.0 FL LAB HEMETOLOGY METHOD 01/08/2025 12:[address] [facility] MCH 31.1 27.0 - 32.0 pcg LAB HEMETOLOGY METHOD 01/08/2025 12:[address] [facility] MCHC 31.5(L) 32.0 - 37.0 g/dL LAB HEMETOLOGY METHOD 01/08/2025 12:[address] [facility] RDW 14.2 11.0 - 15.0 % LAB HEMETOLOGY METHOD 01/08/2025 12:[address] [facility] Platelets 187 130 - 400 K/mcL LAB HEMETOLOGY METHOD 01/08/2025 12:[address] [facility] MPV 11.2(H) 7.0 - 11.0 FL LAB HEMETOLOGY METHOD 01/08/2025 12:[address] [facility] NRBC 0.0 <1.0 % LAB HEMETOLOGY METHOD 01/08/2025 12:[address] [facility] NRBC Absolute 0.00 <0.10 K/mcL LAB HEMETOLOGY METHOD 01/08/2025 12:[address] [facility] Blood Venous blood specimen / Unknown Venipuncture / Unknown 01/08/2025 6:30 AM EDT 01/08/2025 11:21 AM EDT us Ashley Gonzáles MD LAB BLOOD ORDERABLES Final Resul t [facility] [address] [place] [address], documented in this encounter Visit Diagnoses Diagnosis Essential (primary) hypertension Unspecified essential hypertension Hyperlipidemia, unspecified Shortness of breath documented in this encounter Additional Health Concerns [...] documented as of this encounter Care Teams Corporate Specialist Relationship Specialty Start Date End Date Fe León MD [address] [facility] [address] [place] [address] PCP - General Internal Medicine 01/30/25 documented as of this encounter
--- OUTSIDE RECORDS SUMMARY | 2025-06-19 10:06 | XMS_ITS | Encounter Summary ---
Author Organization [facility] Address [address] [place] [address] Care Team Providers Care Field Sales Associate Name Role Phone Fe León MD Primary Care Provider Encounter Details Date Type Department Care Team (Late st Contact Info) Description 11/07/2024 Lab Requisition [facility] - Main Lab [address] [place] [address] Dayanara Barber MD [address] [id number] Unspecified atrial fibrillation (CMS/HCC V24, CMS/HCC V28) [...] care for your loved ones. For example, childhood development teacher or elderly care for an older [...] Info) Description 07/12/2025 11:10 AM EDT Consult [facility] - [address] [facility] [address] [place] [address] German Campbell MD [address] [place] [address] [place] [address] documented as of this encounter Procedures Procedure Name Priority Date/Time Associated Diagnosis Comments COMPLETE BLOOD COUNT Routine 11/07/2024 5:40 AM EST Unspecified atrial fibrillation (CMS/HCC) BASIC METABOLIC PANEL Routine 11/07/2024 5:40 AM EST Unspecified atrial fibrillation (CMS/HCC) documented in this encounter Results * (ABNORMAL) Basic metabolic panel (11/07/2024 5:40 AM EST) Sodium 139 133 - 145 mmol/L LAB CHEMISTRY METHOD 11/07/2024 10:54 AM [facility] Potassium 4.2 3.5 - 5.5 mmol/L LAB CHEMISTRY METHOD 11/07/2024 10:54 AM [facility] Chloride 100 96 - 110 mmol/L LAB CHEMISTRY METHOD 11/07/2024 10:54 AM [facility] CO2 37(H) 21 - 32 mmol/L LAB CHEMISTRY METHOD 11/07/2024 10:54 AM [facility] Anion Gap 2(L) 3 - 11 LAB CHEMISTRY METHOD 11/07/2024 10:54 AM [facility] Glucose 92 70 - 100 mg/dL LAB CHEMISTRY METHOD 11/07/2024 10:54 AM [facility] BUN 7 5 - 25 mg/dL LAB CHEMISTRY METHOD 11/07/2024 10:54 AM [facility] Creatinine 0.40(L) 0.50 - 1.10 mg/dL LAB CHEMISTRY METHOD 11/07/2024 10:54 AM [facility] eGFR 109 >=60 mL/min/1. 73m2 LAB CHEMISTRY METHOD 11/07/2024 10:54 AM [facility] Comment:Calculation based on the Chronic Kidney Disease Epidemiology Collaboration (CKD-EPI) equation refit without adjustment for race. BUN/Creatinine Ratio 17.5 LAB CHEMISTRY METHOD 11/07/2024 10:54 AM [facility] Calcium 9.2 8.5 - 10.5 mg/dL LAB CHEMISTRY METHOD 11/07/2024 10:54 AM [facility] Blood Venous blood specimen / Unknown Venipuncture / Unknown 11/07/2024 5:40 AM EST 11/07/2024 9:25 AM EST us Dayanara Barber MD LAB BLOOD ORDERABLES Fin al Result [facility] [address] [place] [address], * (ABNORMAL) Complete blood count (11/07/2024 5:40 AM EST) [facility] WBC 7.0 4.8 - 10.8 K/mcL LAB HEMETOLOGY METHOD 11/07/2024 10:25 AM EST [facility] RBC 2.60(L) 3.80 - 4.80 M/mcL LAB HEMETOLOGY METHOD 11/07/2024 10:25 AM EST [facility] Hemoglobin 8.2(L) 11.5 - 16.0 g/dL LAB HEMETOLOGY METHOD 11/07/2024 10:25 AM [facility] Hematocrit 26.1(L) 35.0 - 47.0 % LAB HEMETOLOGY METHOD 11/07/2024 10:25 AM EST [facility] MCV 99.2(H) 79.0 - 98.0 FL LAB HEMETOLOGY METHOD 11/07/2024 10:25 AM EST [facility] MCH 31.2 27.0 - 32.0 pcg LAB HEMETOLOGY METHOD 11/07/2024 10:25 AM [facility] MCHC 31.4(L) 32.0 - 37.0 g/dL LAB HEMETOLOGY METHOD 11/07/2024 10:25 AM EST [facility] RDW 15.9(H) 11.0 - 15.0 % LAB HEMETOLOGY METHOD 11/07/2024 10:25 AM [facility] Platelets 293 130 - 400 K/mcL LAB HEMETOLOGY METHOD 11/07/2024 10:25 AM [facility] MPV 11.7(H) 7.0 - 11.0 FL LAB HEMETOLOGY METHOD 11/07/2024 10:25 AM EST [facility] NRBC 0.0 <1.0 % LAB HEMETOLOGY METHOD 11/07/2024 10:25 AM EST [facility] NRBC Absolute 0.00 <0.10 K/mcL LAB HEMETOLOGY METHOD 11/07/2024 10:25 AM EST [facility] Blood Venous blood specimen / Unknown Venipuncture / Unknown 11/07/2024 5:40 AM EST 11/07/2024 9:25 AM EST us Dayanara Barber MD LAB BLOOD ORDERABLES Fin al Result [facility] [address] [place] [address], documented in this encounter Visit Diagnoses Diagnosis Unspecified atrial fibrillation (CMS/HCC V24, CMS/HCC V28) documented in this encounter Additional Health Concerns [...] documented as of this encounter Care Teams Field Sales Associate Relationship Specialty Start Date End Date Fe León MD [address] [address] PCP - General Internal Medicine 01/30/25 documented as of this encounter
--- OUTSIDE RECORDS SUMMARY | 2025-06-19 10:06 | XMS_ITS | Encounter Summary ---
Author Organization [facility] Address [address] [place] [address] Care Team Providers Care Manager Academic Name Role Phone Fe León MD Primary Care Provider [phone]- [phone] Encounter Details Date Type Department Care Team (Late st Contact Info) Description 01/20/2025 Lab Requisition [facility] - Main Lab [address] [facility] [place] [address] Ashley Gonzáles MD [address] [place] [address] Essential (primary) hypertension Social History Tobacco Use [...] your loved ones. For example, child care teacher or elderly care for an older [...] Info) Description 07/12/2025 11:10 AM EDT Consult [facility] - [facility] [address] 300 [facility] 154 [place] [address] German Campbell MD [address] [place] [address] [place] [address] documented as of this encounter Visit Diagnoses Diagnosis Essential (primary) hypertension Unspecified essential hypertension documented in this encounter Additional Health Concerns Infection Onset Date Last Indicated Resolved Time Respiratory Rule-Out 02/10/2025 02/10/2025 025 6:58 AM EDT COVID-19 Rule-Out 02/10/2025 02/10/2025 02/10/2025 6:58 AM EDT Respiratory Rule-Out 02/10/2025 02/10/20252 025 6:58 PM EDT COVID-19 Rule-Out 02/10/2025 [...] documented as of this encounter Care Teams Manager Academic Relationship Specialty Start Date End Date Fe León MD 75 [facility] 1 [place] [address] PCP - General Internal Medicine 01/30/25 documented as of this encounter
--- OUTSIDE RECORDS SUMMARY | 2025-06-19 10:06 | XMS_ITS | Encounter Summary ---
Author Organization [facility] Address [address] [place] [address] Phone Care Team Providers Care Slag Skimmer Name Role Phone Jean Paul Arteaga MD Primary Care Provider + Encounter Details Date Type Department Care Team (Late st Contact Info) Description 06/05/2025 Orders Only [facility] Neurosurgery [address] [facility], 7th Floor, [address] [place] [address] [place], [place] [address] [place] [address] [email or web address] Left hand pain (Primary Dx) Social History [...] as of this encounter Plan of Treatment Upcoming Encounters Date Type Department Care Team (Latest Contact Info) Description 07/13/2025 1:30 PM EDT Appointment [facility] for Outpatient Care, Ultrasound [address] [place] [address] Jamie Grady MD [address] [place] [address] [address] [place] [address] [email or web address] 07/18/2025 11:45 AM EDT Telemedicine - audio only [facility] Neurosurgery at [facility] [address] [facility], [address] [place] [address] Jamie Grady MD [address] [place] [address] [address] [place] [address] [email or web address] Scheduled Orders Name Type Priority Associated Diagnoses Orde r Schedule US Upper Extremity Non-Vascular (Left) Imaging Routine Left hand pain Expected: 06/05/2025, Expires: 09/05/2025 documented as of this encounter Visit Diagnoses Diagnosis Left hand pain- Primary Pain in soft tissues of limb documented in this encounter Care Teams Slag Skimmer Relationship Specialty Start Date End Date Jean Paul Arteaga MD [address] [facility] [place] [address] PCP - General Internal Medicine 05/25/17 documented as of this encounter Additional Source Comments The information contained in this document represents components of the legal health record. It is not the complete legal health record.[facility]
--- OUTSIDE RECORDS SUMMARY | 2025-06-19 10:06 | XMS_ITS | Encounter Summary ---
Author Organization [facility] Address [address] [place] [address] Care Team Providers Care Document Coordinator Name Role Phone Fe León MD Primary Care Provider [phone]- [phone] Encounter Details Date Type Department Care Team (Late st Contact Info) Description 03/30/2025 Lab Requisition [facility] - Main Lab [address] [facility] [address] [facility] [place] [address] Marvin Juarez MD [address] [place] [address] [address] [place], [address] Essential (primary) hypertension Social History Tobacco Use [...] your loved ones. For example, child and family services specialist or elderly care for an older [...] Entry Date Author No 03/20/2025 7:45 AM EDElla Borja RN documented in this encounter Plan of Treatment Upcoming Encounters Date Type Department Care Team (Late st Contact Info) Description 07/12/2025 11:10 AM EDT Consult [facility] - [facility] [address] 300 [facility] 154 [place] [address] German Campbell MD [address] [place] [address] Dr [address] [place] [address] documented as of this encounter Visit Diagnoses Diagnosis Essential (primary) hypertension Unspecified essential hypertension documented in this encounter Care Teams Document Coordinator Relationship Specialty Start Date End Date Fe León MD [address] [place] [address] PCP - General Internal Medicine 01/30/25 documented as of this encounter
--- OUTSIDE RECORDS SUMMARY | 2025-06-19 10:06 | XMS_ITS | Encounter Summary ---
Author Organization [facility] Address [address] [place] [address] Care Team Providers Care Circus Performer Name Role Phone Fe León MD Primary Care Provider Encounter Details Date Type Department Care Team (Late st Contact Info) Description 01/14/2025 Lab Requisition [facility] - Main Lab [address] [facility] [address] [place] [address] Ashley Gonzáles MD [address] [place] [address] Essential (primary) hypertension Social History Tobacco Use [...] Info) Description 07/12/2025 11:10 AM EDT Consult [facility] - [facility] [address] [facility] [address] [place] [address] German Campbell MD [address] [place] [address] [place] [address] documented as of this encounter Procedures Procedure Name Priority Date/Time Associated Diagnosis Comments COMPLETE BLOOD COUNT Routine 01/15/2025 6:38 AM EDT Essential (primary) hypertension BASIC METABOLIC PANEL Routine 01/15/2025 6:38 AM EDT Essential (primary) hypertension documented in this encounter Results * Basic metabolic panel (01/15/2025 6:38 AM EDT) [facility] Sodium 140 133 - 145 mmol/L LAB CHEMISTRY METHOD 01/15/2025 10:31 AM [facility] Potassium 3.8 3.5 - 5.5 mmol/L LAB CHEMISTRY METHOD 01/15/2025 10:31 AM [facility] Chloride 104 96 - 110 mmol/L LAB CHEMISTRY METHOD 01/15/2025 10:31 AM [facility] CO2 31 21 - 32 mmol/L LAB CHEMISTRY METHOD 01/15/2025 10:31 AM [facility] Anion Gap 5 3 - 11 LAB CHEMISTRY METHOD 01/15/2025 10:31 AM [facility] Glucose 90 70 - 100 mg/dL LAB CHEMISTRY METHOD 01/15/2025 10:31 AM [facility] BUN 10 5 - 25 mg/dL LAB CHEMISTRY METHOD 01/15/2025 10:31 AM [facility] Creatinine 0.52 0.50 - 1.10 mg/dL LAB CHEMISTRY METHOD 01/15/2025 10:31 AM [facility] eGFR 102 >=60 mL/min/1. 73m2 LAB CHEMISTRY METHOD 01/15/2025 10:31 AM [facility] Comment:Calculation based on the Chronic Kidney Disease Epidemiology Collaboration (CKD-EPI) equation refit without adjustment for race. BUN/Creatinine Ratio 19.2 LAB CHEMISTRY METHOD 01/15/2025 10:31 AM [facility] Calcium 9.3 8.5 - 10.5 mg/dL LAB CHEMISTRY METHOD 01/15/2025 10:31 AM [facility] Blood Venous blood specimen / Unknown Venipuncture / Unknown 01/15/2025 6:38 AM EDT 01/15/2025 9:37 AM EDT us Ashley Gonzáles MD LAB BLOOD ORDERABLES Final Resul t [facility] [address] [place] [address], [place] [phone] * (ABNORMAL) Complete blood count (01/15/2025 6:38 AM EDT) [facility] WBC 5.5 4.8 - 10.8 K/mcL LAB HEMETOLOGY METHOD 01/15/2025 10:36 AM [facility] RBC 2.90(L) 3.80 - 4.80 M/mcL LAB HEMETOLOGY METHOD 01/15/2025 10:36 AM EDT [facility] Hemoglobin 8.9(L) 11.5 - 16.0 g/dL LAB HEMETOLOGY METHOD 01/15/2025 10:36 AM [facility] Hematocrit 28.4(L) 35.0 - 47.0 % LAB HEMETOLOGY METHOD 01/15/2025 10:36 AM [facility] MCV 99.0(H) 79.0 - 98.0 FL LAB HEMETOLOGY METHOD 01/15/2025 10:36 AM [facility] MCH 31.0 27.0 - 32.0 pcg LAB HEMETOLOGY METHOD 01/15/2025 10:36 AM [facility] MCHC 31.3(L) 32.0 - 37.0 g/dL LAB HEMETOLOGY METHOD 01/15/2025 10:36 AM [facility] RDW 13.5 11.0 - 15.0 % LAB HEMETOLOGY METHOD 01/15/2025 10:36 AM [facility] Platelets 243 130 - 400 K/mcL LAB HEMETOLOGY METHOD 01/15/2025 10:36 AM [facility] MPV 11.7(H) 7.0 - 11.0 FL LAB HEMETOLOGY METHOD 01/15/2025 10:36 AM [facility] NRBC 0.0 <1.0 % LAB HEMETOLOGY METHOD 01/15/2025 10:36 AM EDT [facility] NRBC Absolute 0.00 <0.10 K/mcL LAB HEMETOLOGY METHOD 01/15/2025 10:36 AM EDT [facility] Blood Venous blood specimen / Unknown Venipuncture / Unknown 01/15/2025 6:38 AM EDT 01/15/2025 9:33 AM EDT us Ashley Gonzáles MD LAB BLOOD ORDERABLES Final Resul t [facility] [address] [place] [address], documented in this encounter Visit Diagnoses Diagnosis [...] documented as of this encounter Care Teams Circus Performer Relationship Specialty Start Date End Date Fe León MD 75 [facility] 1 [place] [address] PCP - General Internal Medicine 01/30/25 documented as of this encounter
--- OUTSIDE RECORDS SUMMARY | 2025-06-19 10:06 | XMS_ITS | Encounter Summary ---
Author Organization [facility] Address [address] [place] [address] Care Team Providers Care Box Car Checker Name Role Phone Fe León MD Primary Care Provider Encounter Details Date Type Department Care Team (Late st Contact Info) Description 11/18/2024 Lab Requisition [facility] - Main Lab [address] [facility] [place] [address] Dayanara Barber MD [address] [address] Unspecified atrial fibrillation (CMS/HCC V24, CMS/HCC V28) [...] your loved ones. For example, early childhood special educator or elderly care for an older adult? [...] Info) Description 07/12/2025 11:10 AM EDT Consult [facility] - [address] [facility] 154 [place] [address] German Campbell MD [address] [place] [address] [place] [address] documented as of this encounter Visit Diagnoses [...] documented as of this encounter Care Teams Box Car Checker Relationship Specialty Start Date End Date Fe León MD 75 [facility] 1 [place] [address] PCP - General Internal Medicine 01/30/25 documented as of this encounter
--- OUTSIDE RECORDS SUMMARY | 2025-06-19 10:06 | XMS_ITS | Encounter Summary ---
Author Organization [facility] Address [address] [place] [address] Care Team Providers Care Executive Director Name Role Phone Fe León MD Primary Care Provider Encounter Details Date Type Department Care Team (Late st Contact Info) Description 11/11/2024 Lab Requisition [facility] - Main Lab [address] [facility] [place] [address] Dayanara Barber MD [address] [id number] Unspecified atrial fibrillation (CMS/HCC V24, CMS/HCC V28) [...] Info) Description 07/12/2025 11:10 AM EDT Consult [facility] - [address] [facility] [address] [place] [address] German Campbell MD [address] [place] [address] [place] [address] documented as of this encounter Procedures Procedure Name Priority Date/Time Associated Diagnosis Comments COMPLETE BLOOD COUNT Routine 11/13/2024 6:18 AM EST Unspecified atrial fibrillation (CMS/HCC) BASIC METABOLIC PANEL Routine 11/13/2024 6:18 AM EST Unspecified atrial fibrillation (CMS/HCC) documented in this encounter Results * (ABNORMAL) Basic metabolic panel (11/13/2024 6:18 AM EST) Sodium 138 133 - 145 mmol/L LAB CHEMISTRY METHOD 11/13/2024 9:56 AM [facility] Potassium 4.1 3.5 - 5.5 mmol/L LAB CHEMISTRY METHOD 11/13/2024 9:56 AM [facility] Chloride 102 96 - 110 mmol/L LAB CHEMISTRY METHOD 11/13/2024 9:56 AM [facility] CO2 33(H) 21 - 32 mmol/L LAB CHEMISTRY METHOD 11/13/2024 9:56 AM [facility] Anion Gap 3 3 - 11 LAB CHEMISTRY METHOD 11/13/2024 9:56 AM [facility] Glucose 89 70 - 100 mg/dL LAB CHEMISTRY METHOD 11/13/2024 9:56 AM [facility] BUN 7 5 - 25 mg/dL LAB CHEMISTRY METHOD 11/13/2024 9:56 AM [facility] Creatinine 0.50 0.50 - 1.10 mg/dL LAB CHEMISTRY METHOD 11/13/2024 9:56 AM [facility] eGFR 103 >=60 mL/min/1. 73m2 LAB CHEMISTRY METHOD 11/13/2024 9:56 AM [facility] Comment:Calculation based on the Chronic Kidney Disease Epidemiology Collaboration (CKD-EPI) equation refit without adjustment for race. BUN/Creatinine Ratio 14.0 LAB CHEMISTRY METHOD 11/13/2024 9:56 AM [facility] Calcium 9.1 8.5 - 10.5 mg/dL LAB CHEMISTRY METHOD 11/13/2024 9:56 AM [facility] Blood Venous blood specimen / Unknown Venipuncture / Unknown 11/13/2024 6:18 AM EST 11/13/2024 9:23 AM EST us Dayanara Barber MD LAB BLOOD ORDERABLES Fin al Result [facility] [address] [place] [address], * (ABNORMAL) Complete blood count (11/13/2024 6:18 AM EST) [facility] WBC 6.7 4.8 - 10.8 K/mcL LAB HEMETOLOGY METHOD 11/13/2024 9:35 AM [facility] RBC 2.90(L) 3.80 - 4.80 M/mcL LAB HEMETOLOGY METHOD 11/13/2024 9:35 AM [facility] Hemoglobin 9.1(L) 11.5 - 16.0 g/dL LAB HEMETOLOGY METHOD 11/13/2024 9:35 AM [facility] Hematocrit 29.0(L) 35.0 - 47.0 % LAB HEMETOLOGY METHOD 11/13/2024 9:35 AM [facility] MCV 101.4(H) 79.0 - 98.0 FL LAB HEMETOLOGY METHOD 11/13/2024 9:35 AM [facility] MCH 31.8 27.0 - 32.0 pcg LAB HEMETOLOGY METHOD 11/13/2024 9:35 AM [facility] MCHC 31.4(L) 32.0 - 37.0 g/dL LAB HEMETOLOGY METHOD 11/13/2024 9:35 AM [facility] RDW 16.1(H) 11.0 - 15.0 % LAB HEMETOLOGY METHOD 11/13/2024 9:35 AM [facility] Platelets 297 130 - 400 K/mcL LAB HEMETOLOGY METHOD 11/13/2024 9:35 AM [facility] MPV 11.4(H) 7.0 - 11.0 FL LAB HEMETOLOGY METHOD 11/13/2024 9:35 AM [facility] NRBC 0.0 <1.0 % LAB HEMETOLOGY METHOD 11/13/2024 9:35 AM EST [facility] NRBC Absolute 0.00 <0.10 K/mcL LAB HEMETOLOGY METHOD 11/13/2024 9:35 AM EST [facility] Blood Venous blood specimen / Unknown Venipuncture / Unknown 11/13/2024 6:18 AM EST 11/13/2024 9:23 AM EST us Dayanara Barber MD LAB BLOOD ORDERABLES Fin al Result [facility] [address] [place] [address], documented in this encounter Visit Diagnoses Diagnosis [...] documented as of this encounter Care Teams Executive Director Relationship Specialty Start Date End Date Fe León MD 75 [facility] 1 [place] [address] PCP - General Internal Medicine 01/30/25 documented as of this encounter
--- OUTSIDE RECORDS SUMMARY | 2025-06-19 10:06 | XMS_ITS | Clinical Summary ---
Author Organization [facility] Address [address] [facility] [address] [place] [address] Phone Care Team Providers Care Non Profit Financial Controller Name Role Phone Fe León MD Primary [...] Medicaid [place] Medicare Medicaid [place] Care Teams Non Profit Financial Controller Relationship Specialty Start Date End Date Fe León MD [address] [place] [address] [place] [address] PCP - General Internal Medicine 03/31/21
--- OUTSIDE RECORDS SUMMARY | 2025-06-19 10:07 | XMS_ITS | Clinical Summary ---
Author Organization [address] [facility] Address [address] [place] [address] Phone Care Team Providers Care Lumber Cutter Name Role Phone Fe León MD Primary Care Provider Allergies Active Allergy Reactions Criticality Noted Date Comments Benazepril 01/30/2025 Levofloxacin Swelling High 03/21/2018 nauseous Medications atorvastatin (LIPITOR) 40 mg tablet Take 1 tablet (40 mg total) by mouth at bedtime. Active DULoxetine (CYMBALTA) [address] capsule [...] (six) hours if needed for wheezing. Active Trelegy Ellipta 100-62.5-25 mcg inhaler Inhale 1 puff (100 mcg total) by mouth 1 (one) time each day. Active clopidogreL (PLAVIX) 75 mg tablet Take 1 tablet (75 mg total) by mouth 1 (one) time each day. Active ondansetron (ZOFRAN) 4 mg tablet Take 1 tablet (4 mg total) by mouth every 8 (eight) hours if needed for nausea or vomiting. Active metoprolol succinate (TOPROL-XL) 25 mg 24 hr tablet Take 3 tablets (75 mg total) by mouth 1 (one) time each day. Do not crush or chew. 90 each 03/24/20 25 026 Active famotidine (PEPCID) 10 mg tablet Take 2 tablets (20 mg total) by mouth 2 (two) times a day. 120 tablet 03/23/20 25 026 Active potassium chloride (KLOR-CON M20) 20 mEq CR tablet Take 1 tablet (20 mEq total) by mouth 1 (one) time each day. Take 2 tablets first, wait for 4 hours, then take 2 more tablets, then 20meq daily Tablet may be swallowed whole (do not crush/chew/moseley ck on) OR broken in half and each half swallowed separately OR dissolved (whole tablet) in ~4 ounces of water (allow ~2 minutes to dissolve, stir well and administer immediately). 03/27/20 25 Active spironolactone (ALDACTONE) 25 mg tablet Take 1 tablet (25 mg total) by mouth 1 (one) time each day. 90 each 3 05/03/20 25 026 Active dilTIAZem CD (CARDIZEM CD) 240 mg 24 hr capsule Take 1 capsule (240 mg total) by mouth 1 (one) time each day. 90 each 1 05/07/20 25 026 Active pregabalin (LYRICA) 150 mg capsule Take 1 capsule (150 mg total) by mouth 2 (two) times a day. Max Daily Amount: 300 mg Active furosemide (LASIX) 20 mg tablet Take 2 tablets (40 mg total) by mouth 1 (one) time each day in the morning AND 1 tablet (20 mg total) 1 (one) time each day in the evening. 270 tablet 3 06/06/20 25 Active apixaban (ELIQUIS) 5 mg tablet Take 1 tablet (5 mg total) by mouth 2 (two) times a day. Active gabapentin (NEURONTIN) 300 mg capsuleIndicat ions:neuropath ic pain Take 1 capsule (300 mg total) by mouth 3 (three) times a day. 90 each 1 12/14/19 25 025 Discontinued oxyCODONE (ROXICODONE) 5 mg immediate release tabletIndicati ons:Closed 2-part displaced fracture of surgical neck of left humerus with delayed healing, subsequent encounter,[facility] pheral vascular disease (CMS/HCC V24) Take 1 tablet (5 mg total) by mouth every 4 (four) hours if needed for severe pain. Max Daily Amount: 30 mg 10 tablet 03/08/20 25 025 Discontinued(Di scontinued by another clinician) furosemide (LASIX) 20 mg tablet Take 2 tablets (40 mg total) by mouth 1 (one) time each day. 025 Discontinued(Re order) Active Problems Problem Noted Date Diagnosed Date Calculus of gallbladder with out cholecystitis without obstruction 04/24/2025 Chronic diastolic heart failure (CMS/HCC V24, CM S/HCC V28) 03/27/2025 Assessment & Plan (06/06/2025 9:56 AM EDT): Aside from mild pitting bilateral lower extremity edema she appears euvolemic on physical exam. However she continues to experience increased shortness of breath with exertion and orthopnea. proBNP is elevated over 1200. I asked her to increase furosemide to 40 mg in the morning and 20 mg in the afternoon. Will update BMP on Wednesday. Will continue potassium supplement as prescribed. Continue spironolactone as prescribed. Assessment & Plan (05/03/2025 4:32 PM EDT): She appears volume overloaded with bilateral lower extremity edema from the knees down and JVD. She is endorsing mildly increased shortness of breath and weight gain. I have ordered spironolactone 25 mg daily which was prescribed at discharge but for unclear reasons not started. This may also prove beneficial in keeping her potassium levels from dropping. I have also asked her to increase furosemide by taking an additional 20 mg in the morning over the weekend and calling back on Wednesday with an update. We will need to use caution given her low normal blood pressure and tendency to run on the lower side. I asked her to contact the office if she is experiencing symptoms such as lightheadedness or feeling like she could pass out. Will contact the [facility] to draw repeat labs on Wednesday. She will continue potassium supplement as prescribed. No other changes for now. Lactic acidosis 03/20/2025 Moderate protein-calorie malnutrition (CMS/HCC V 24) 03/08/2025 Anemia 03/08/2025 History of recent blood transfusion 03/08/2025 Clostridium difficile colitis 03/05/2025 C. difficile diarrhea 02/12/2025 Hypoxia 02/10/2025 Brachial plexopathy 01/30/2025 Assessment & Plan (01/30/2025 [...] spoke with patient, her daughter lives in [place] and she is willing to see Dr. Grady at [facility]. Referral will be sent. Cervical spondylosis 01/30/2025 [...] disorders 10/01/2024 Longstanding persistent atri al fibrillation ([facility] V24, [facility] V28) 09/30/2024 Secondary hypercoagulable state ([facility] V24) Hypotension 06/13/2024 SOB (shortness of breath) [...] as able. Chronic hypoxemic respirator y failure ([facility] V24, [facility] V28) 09/02/2023 Overview (09/06/2024): Last Assessment & Plan: Followed regularly by pulmonology, Paroxysmal A-fib ([facility] V24, [facility] V28) 08/18 Overview (09/06/2024): Last Assessment & [...] internal bleeding, or for any head injury. Assessment & Plan (06/06/2025 9:52 AM EDT): Patient has a history of paroxysmal atrial fibrillation. She has had frequent hospitalizations with episodes of afib with RVR. She has had multiple episodes of acute blood loss and anemia requiring blood transfusions. She denies further episodes of abnormal bleeding/bruising. She is scheduled to see Dr. Campbell next month to discuss Watchman procedure. HR is well-controlled in the office today at 86 bpm. She is currently on diltiazem and metoprolol for rate control. She appears to be in sinus rhythm today by physical exam. I would appreciate EP input regarding management of paroxysmal Afib. Assessment & Plan (05/03/2025 4:23 PM EDT): Patient has a history of paroxysmal atrial fibrillation. She has had frequent hospitalizations since her last visit with episodes of afib with RVR. She had a recent episode of acute blood loss and anemia requiring blood transfusions and Eliquis was placed on hold. She has since resumed Eliquis without further abnormal bleeding/bruising. It is unclear who advised her to restart it. Given her history of frequent falls and anemia requiring blood transfusions I believe she would benefit from a Watchman procedure. I will place a referral to our EP team. HR is well-controlled in the office today at 63 bpm. She is currently on diltiazem and metoprolol for rate control. I asked her to resume metoprolol 75 mg daily to avoid elevated HRs when in Afib. She will continue diltiazem 240 mg daily as prescribed. I would appreciate EP input regarding management of paroxysmal Afib. Lower extremity edema 04/29/2023 Overview (09/06/2024): Last [...] stopped. We will continue diltiazem and furosemide. Assessment & Plan (06/06/2025 9:56 AM EDT): Blood pressure is well-controlled in the office today at 118/58. No change to current medical therapy. Assessment & Plan (05/03/2025 4:24 PM EDT): Pressure is low normal in the office today at 102/60. Patient denies episodes of lightheadedness/near syncope. Chronic rheumatic arthritis ([facility] V24, [facility] V28) 11/11/2017 Fibromyalgia 11/11/2017 Peripheral neuropathy 11/11/2017 Peripheral vascular disease ([facility] V24) 2017 Overview (09/06/2024): S/p stent r leg Last Assessment & Plan: Followed by vascular surgery; she remains on Plavix at their recommendation. 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 Resolved Problems Problem Noted Date Diagnosed Date Resolved Date Atrial fibrillation with rap id ventricular response ([facility] V24, [facility] V28) 09/30/202409/17 Celiac disease 11/11/2017 01/30/2025 Encounters Date Type Department Care Team Description 06/14/2025 Telephone [facility] - [address] [place] [address] Tricia Montague NP 06/12/2025 Telephone [facility] - [address] [place] [address] Sarah Whitten MA 06/08/2025 Telephone [facility] [address] [place] [address] Tricia Montague NP 06/06/2025 9:10 AM EDT Office Visit [facility]iology [facility] - [address] [place] [address] Tricia Montague NP Paroxysmal A-fib (CMS/HCC V24, CMS/HCC V28) (Primary Dx); Primary hypertension; Chronic diastolic heart failure (CMS/HCC V24, CMS/HCC V28) 05/28/2025 Telephone [facility] - [address] [place] [address] Tariq Villalobos MD 05/22/2025 Telephone Neurosurgery [facility] [address] [place] [address] Lacey Ledesma MA 05/07/2025 Telephone [facility] [address] [place] [address] Tariq Villalobos MD 05/04/2025 Telephone [facility] [address] [place] [address] Sarah Whitten MA 05/03/2025 12:40 PM EDT Office Visit [facility] [address] [place] [address] Tricia Montague NP Primary hypertension (Primary Dx); Paroxysmal A-fib (CMS/HCC V24, CMS/HCC V28); Chronic diastolic heart failure (CMS/HCC V24, CMS/HCC V28) 05/03/2025 Telephone [facility] [address] [place] [address] Tricia Montague NP 04/24/2025 9:45 AM EDT Office Visit General Surgery [address] [place] [address] Fransico Pastor MD Calculus of gallbladder without cholecystitis without obstruction (Primary Dx) 04/16/[address] [place] [address] Lacey Ledesma MA 04/12/2025 6:59 AM EDT - 04/12/2025 3:31 PM EDT Emergency [facility] Emergency [address] [place] [id number] Fall, initial encounter (Primary Dx); Head injury, initial encounter; Closed head injury, initial encounter; Laceration of head without foreign body, unspecified part of head, initial encounter Discharge Disposition: Home or Self Care 04/11/2025 Telephone [facility] 175 [facility] [address] [place] [address] Rylee Gomez MD 03/30/2025 Lab Requisition [facility] Lab [address] [place] [phone] Marvin Juarez MD Essential (primary) hypertension 03/28/2025 Lab Requisition [facility] Lab [address] [place] [phone] Marvin Juarez MD Essential (primary) hypertension 03/22/2025 Telephone [facility] [address] [phone] Araseli Foster PA 03/20/2025 2:38 AM EDT - 03/27/2025 3:40 PM EDT Hospital Encounter [facility] Unit [address] [place] [phone] Dakotah Long DO Bukalo, Nermina, MD Zipagan, James T, MD Kokosadze, Estate, MD Nausea and vomiting, unspecified vomiting type (Primary Dx); Hypomagnesemia; Sepsis, due to unspecified organism, unspecified whether acute organ dysfunction present ([facility] V24, [facility] V28); Calculus of gallbladder without cholecystitis without obstruction; Lactic acidosis; Epigastric pain Discharge Disposition: Assisted Facility 03/19/2025 Telephone [facility] - [address] [place] [address] Tariq Villalobos MD from Last 3 Months Immunizations Name Administration [...] REPAIR OTHER SURGICAL HISTORY N/A Teeth extraction OTHER SURGICAL HISTORY left shoulder/arm surgery Medical History Medical History Date Comments Asthma Atelectasis HTN (hypertension) Lower GI bleed SHO on CPAP Rheumatoid arthritis ([facility] V24, [facility] V28) A-fib ([facility] V24, [facility] V28) Iron deficiency anemia secon anna to blood loss (chronic) COPD (chronic obstructive pu lmonary disease) ([facility] V24, [facility] V28) Aortic valve disorder 06/18/2021 Last Asses sment & Plan: Most recent echocardiogram was completed 06/08/2023 showing only mild aortic insufficiency; we will update an echocardiogram for surveillance purposes. Social History Tobacco Use Types Packs/Day Years Used Date Smoking Tobacco: Former Cigarettes Smokeless Tobacco: Never Tobacco Cessation:Counseling Given: Not Answered Alcohol Use Standard Drinks/Week Comments Not Currently [...] your loved ones. For example, early childhood or elderly care for an older adult? [...] Sign Reading Time Taken Comments Blood Pressure 118/58 06/06/2025 8:57 AM EDT Pulse 86 06/06/2025 8:57 AM EDT Temperature 36.4 C (97.5 F) 04/24/2025 9:40 AM EDT Respiratory Rate 18 04/12/2025 11:1 5 AM EDT Oxygen Saturation 94% 06/06/2025 8:5 7 AM EDT pt on 2 liter o2 Inhaled Oxygen Concentration - - Weight 65.3 kg (144 lb) 06/06/2025 8:57 AM EDT Height 160 cm (5' 3 ) 06/06/2025 8:57 AM EDT Body Mass Index 25.51 06/06/2025 8:57 AM EDT Plan of Treatment Upcoming Encounters Date Type Department Care Team (Late st Contact Info) Description 07/12/2025 11:10 AM EDT Consult [facility] [address] [facility] [address] [place] [address] German Campbell MD [address] [place] [address] [address] [place] [address] Health Maintenance Due Date Last Done Comments Breast Cancer Screening 1955 Zoster Vaccines (2 of 2) 08/20/2021 06/25/2021 Cholesterol Screening (Lipid Panel) 09/27/2022 Hepatitis C Screening 09/27/2022 Medicare Annual Wellness Visit 09/27/2022 Osteoporosis Screening (Bone Density Screening) 09/27/2022 COVID-19 Vaccine ( season) 2024 01/17/2022, 06/14/2021, 12/12/2020, Additional history exists Depression Screening 10/18/2024 Influenza Vaccine (#1) 2025 , 06/25/2021, 06/28/2020, Additional history exists Pneumococcal Vaccine: 50+ Years (2 of 2 - PCV) 07/04/2025 07/04/2024, 06/25/2021, 08/07/2015 Colorectal Cancer Screening: Stool Based Tests (FOBT/FIT) 03/05/2026 03/05/2025, 02/10/2025 Social Influencers of Health Screening 03/07/2026 03/07/2025 Falls Risk Assessment 03/27/2026 03/27/2025 Hypertension/CHF/CAD Annual BMP Blood Test 06/11/2026 06/11/2025, 03/28/2025, 03/26/2025, Additional history exists DTaP,Tdap,and Td Vaccines (6 - Td or Tdap) 09/16/2034 09/16/2024, 09/16/2024, 06/17/2021, Additional history exists RSV Immunization Adult Patients Completed 07/04/2024 HIB Vaccines Aged Out No longer eligi [...] this topic Medical Devices Implanted Type Area Route Sales Associate Device Identifier Shelf Expiration Date Model / Serial / Lot Plate Humerus Proximal 103mm [place] Lft Ss - Sn/A - [id number] Implanted:Qty: 1 on 10/30/2024 by Jose Nash MD at [facility] Internal and External Fixation Left: Arm [email or web address] [id number] / N/A / N/A Screw Lcking Monoax 3.5x30mm Blunt Tip Ss [place] Prox Hum Fx - Sn/A - [id number] Implanted:Qty: 2 on 10/30/2024 by Jose Nash MD at [facility] Internal and External Fixation Left: Arm [email or web address] [id number] / N/A / N/A Screw Lcking Monoax 3.5x38mm Blunt Tip Ss [place] Prox Hum Fx - Sn/A - [id number] Implanted:Qty: 1 on 10/30/2024 by Jose Nash MD at [facility] Internal and External Fixation Left: Arm [facility] [id number] / N/A / N/A Screw Lcking Monoax 3.5x40mm Blunt Tip Ss [place] Prox Hum Fx - Sn/A - [id number] Implanted:Qty: 2 on 10/30/2024 by oJse Nash MD at [facility] Internal and External Fixation Left: [facility] [id number] / N/A / N/A Screw Lcking Monoax 3.5x50mm Blunt Tip Ss [place] Prox Hum Fx - Sn/A - [id number] Implanted:Qty: 1 on 10/30/2024 by Jose Nash MD at [facility] Internal and External Fixation Left: [facility] [id number] / N/A / N/A Screw Nonlcking 3.5x26mm Ss [place] Sm Frag Fracture Sys - Sn/A - [id number] Implanted:Qty: 2 on 10/30/2024 by Jose Nash MD at [facility] Internal and External Fixation Left: [facility] [id number] / N/A / N/A Screw Nonlcking 3.5x28mm Ss [place] Sm Frag Fracture Sys - Sn/A - [id number] Implanted:Qty: 2 on 10/30/2024 by Jose Nash MD at [facility] Internal and External Fixation Left: [facility] [id number] / N/A / N/A Screw Nonlcking 3.5x30mm Ss [place] Sm Frag Fracture Sys - Sn/A - [id number] Implanted:Qty: 1 on 10/30/2024 by Jose Nash MD at [facility] Internal and External Fixation Left: [facility] [id number] / N/A / N/A Screw Lcking 4.0x50mm Cocr [place] Prox Hum Fracture Sys - Sn/A - [id number] Implanted:Qty: 1 on 10/30/2024 by Jose Nash MD at [facility] Internal and External Fixation Left: Arm [facility] [id number] / N/A / N/A [employer] Locking Screw 3.5x44mm Blunt Tip Implanted:Qty: 3 on 10/30/2024 by Jose Nash MD at [facility] Left: Arm [facility] [id number] / N/A / N/A [employer] Ax Locking Screw 3.5x46mm Blunt Tip Implanted:Qty: 1 on 10/30/2024 by Jose Nash MD at [facility] Left: Arm [facility] [id number] / N/A / N/A Procedures Procedure Name Priority Date/Time Associated Diagnosis Comments BASIC METABOLIC PANEL Routine 06/11/2025 8:30 AM EDT Chronic diastolic heart failure (CMS/HCC V24, CMS/HCC V28) EXTERNAL CLINICAL LAB Routine 05/07/2025 9:10 AM EDT XR FOREARM 2 VIEWS LEFT STAT 04/12/2025 2:59 PM EDT XR ELBOW 3+ VIEWS LEFT STAT 04/12/2025 2:59 PM EDT ED LACERATION REPAIR Routine 04/12/2025 11:16 AM EDT CBC WITH AUTO DIFFERENTIAL STAT 04/12/2025 8:03 AM EDT PROTHROMBIN TIME WITH INR STAT 04/12/2025 8:03 AM EDT CBC AND DIFFERENTIAL STAT 04/12/2025 8:[address] CERVICAL SPINE WO CONTRAST STAT 04/12/2025 7:[address] HEAD WO CONTRAST STAT 04/12/2025 7 :49 AM EDT COMPREHENSIVE METABOLIC PANEL Routine 03/28/2025 5:24 AM EDT Essential (primary) hypertension COMPLETE BLOOD COUNT Routine 03/28/2025 5:24 AM EDT Essential (primary) hypertension OXYGEN THERAPY, ADULT Routine 03/26/2025 8:02 AM EDT MAGNESIUM Routine 03/26/2025 6:32 AM EDT BASIC METABOLIC PANEL Routine 03/26/2025 6:32 AM EDT OXYGEN THERAPY, ADULT Routine 03/25/2025 8:00 PM EDT OXYGEN THERAPY, ADULT Routine 03/25/2025 8:00 AM EDT LAVENDER - EDTA Routine 03/25/2025 5:22 AM EDT EXTRA TUBES Routine 03/25/2025 5:22 AM EDT MAGNESIUM Routine 03/25/2025 5:22 AM EDT BASIC METABOLIC PANEL Routine 03/25/2025 5:22 AM EDT OXYGEN THERAPY, ADULT Routine 03/24/2025 8:00 PM EDT OXYGEN THERAPY, ADULT Routine 03/24/2025 8:01 AM EDT CBC WITH AUTO DIFFERENTIAL Routine 03/24/2025 6:13 AM EDT MAGNESIUM Timed 03/24/2025 6:13 AM EDT CBC AND DIFFERENTIAL Routine 03/24/2025 6:13 AM EDT BASIC METABOLIC PANEL Routine 03/24/2025 6:13 AM EDT OXYGEN THERAPY, ADULT Routine 03/23/2025 8:01 PM EDT US ABDOMEN LIMITED STAT 03/23/2025 11 :16 AM EDT OXYGEN THERAPY, ADULT Routine 03/23/2025 8:02 AM EDT HEPATIC FUNCTION PANEL STAT Add-on 03/23/2025 5:33 AM EDT CBC WITH AUTO DIFFERENTIAL Routine 03/23/2025 5:33 AM EDT MAGNESIUM Timed 03/23/2025 5:33 AM EDT CBC AND DIFFERENTIAL Routine 03/23/2025 5:33 AM EDT BASIC METABOLIC PANEL Routine 03/23/2025 5:33 AM EDT OXYGEN THERAPY, ADULT Routine 03/22/2025 8:01 PM EDT POTASSIUM Timed 03/22/2025 12:10 PM EDT OXYGEN THERAPY, ADULT Routine 03/22/2025 8:02 AM EDT CBC WITH AUTO DIFFERENTIAL Routine 03/22/2025 5:28 AM EDT MAGNESIUM Timed 03/22/2025 5:28 AM EDT CBC AND DIFFERENTIAL Routine 03/22/2025 5:28 AM EDT BASIC METABOLIC PANEL Routine 03/22/2025 5:28 AM EDT BASIC METABOLIC PANEL Routine 03/21/2025 11:23 PM EDT OXYGEN THERAPY, ADULT Routine 03/21/2025 8:01 PM EDT OXYGEN THERAPY, ADULT Routine 03/21/2025 3:24 PM EDT OXYGEN THERAPY, ADULT Routine 03/21/2025 3:24 PM EDT LAVENDER - EDTA Routine 03/21/2025 2:23 PM EDT LT BLUE - NA CITRATE Routine 03/21/2025 2:23 PM EDT EXTRA TUBES Routine 03/21/2025 2:23 PM EDT BASIC METABOLIC PANEL STAT 03/21/2025 2:23 PM EDT MAGNESIUM STAT Add-on 03/21/2025 5:42 AM EDT COMPLETE BLOOD COUNT Routine 03/21/2025 5:42 AM EDT COMPREHENSIVE METABOLIC PANEL Routine 03/21/2025 5:42 AM EDT URINALYSIS WITH REFLEX MICROSCOPIC Routine 03/21/2025 1:27 AM EDT URINALYSIS WITH REFLEX MICROSCOPIC Routine 03/21/2025 1:27 AM EDT AHN URINE CULTURE TUBE STAT 03/21/2025 1:27 AM EDT URINALYSIS WITH REFLEX MICROSCOPIC AND CULTURE STAT 03/21/2025 1:27 AM EDT URINALYSIS WITH REFLEX MICROSCOPIC AND CULTURE STAT 03/21/2025 1:27 AM EDT BASIC METABOLIC PANEL Routine 03/20/2025 11:10 PM EDT PROCALCITONIN Add-On 03/20/2025 5:19 PM EDT CBC WITH AUTO DIFFERENTIAL STAT 03/20/2025 5:19 PM EDT CBC AND DIFFERENTIAL STAT 03/20/2025 5:19 PM EDT COMPREHENSIVE METABOLIC PANEL STAT 03/20/2025 5:[address] ANGIO ABDOMEN PELVIS WO AND/OR W CONTRAST STAT 03/20/2025 12:06 PM EDT Lactic acidosis LACTATE STAT 03/20/2025 10:43 AM EDT LACTATE, WITH REFLEX Timed 03/20/2025 8:[address] ABDOMEN PELVIS W CONTRAST STAT 03/20/2025 7:08 AM EDT LACTATE, WITH REFLEX STAT 03/20/2025 4:54 AM EDT CULTURE BLOOD STAT 03/20/2025 4:54 AM EDT CULTURE BLOOD STAT 03/20/2025 4:54 AM EDT PARATHYROID HORMONE INTACT Add-On 03/20/2025 3:06 AM EDT VITAMIN B12 AND FOLATE Add-On 03/20/2025 3:06 AM EDT IRON AND TIBC Add-On 03/20/2025 3:06 AM EDT THYROID STIMULATING HORMONE WITH REFLEX TO FREE T4 AND FREE T3 Add-On 03/20/2025 3:06 AM EDT ETHANOL STAT Add-on 03/20/2025 3:06 AM EDT PHOSPHORUS STAT Add-on 03/20/2025 3:06 AM EDT MAGNESIUM STAT Add-on 03/20/2025 3:06 AM EDT CBC WITH AUTO DIFFERENTIAL STAT 03/20/2025 3:06 AM EDT COMPREHENSIVE METABOLIC PANEL STAT 03/20/2025 3:06 AM EDT CBC AND DIFFERENTIAL STAT 03/20/2025 3:06 AM EDT RESPIRATORY VIRUS PANEL MOLECULAR STUDY STAT 03/20/2025 2:47 AM EDT OCCULT BLOOD STOOL, GUAIAC STAT 03/05/2025 3:40 PM EDT from Last 3 Months or Most Recently Relevant to Health Maintenance Results * (ABNORMAL) Basic metabolic panel (06/11/2025 8:30 AM EDT) Only the most recent of9 resultswithin the time period is included. Pathologist [facility] Glucose 146(H) 70 - 99 mg/dL [facility] Blood Urea Nitrogen (BUN) 20 8 - 27 mg/dL [facility] Creatinine 0.72 0.57 - 1.00 mg/dL [facility] 1 eGFR 91 >59 mL/min/1.7 3 [facility] 1 BUN/Creatinine Ratio 28 12 - 28 [facility] 1 Sodium 139 134 - 144 mmol/L [facility] 1 Potassium 3.5 3.5 - 5.2 mmol/L [facility] 1 Chloride 92(L) 96 - 106 mmol/L [facility] 1 Carbon Dioxide 25 20 - 29 mmol/L [facility] 1 Calcium 9.9 8.7 - 10.3 mg/dL [facility] 1 Blood Venous blood specimen / Unknown 06/11/2025 8:30 AM EDT 06/11/2025 Narrative [facility] 1 - 06/12/2025 4:06 AM EDT Performed at: 01 - [facility] [id number] Promotional Marketing Agent: Nan Santiago MD, Phone: [phone] Tricia Montague NP LAB BLOOD ORDERABLES Final Resu lt [facility] 1 * External clinical lab (05/07/2025 9:10 AM EDT) Historical Provider LAB BLOOD ORDERABLES Aundrea l Result * XR Forearm 2 Views Left (04/12/2025 2:59 PM EDT) Anatomical Region Laterality Modality Upper Extremities, Forearm Left Radio graphic Imaging 04/12/2025 3:16 PM EDT Impressions 04/12/2025 3:17 PM EDT FINDINGS/IMPRESSION: Two views of the forearm demonstrating osteopenia. Degenerative changes at the wrist and elbow. No acute fracture. -------- FINAL REPORT -------- Dictated By: Kd Stoner Dictated Date: 04/12/2025 15:16 ET Assigned Physician: Kd Stoner Reviewed and Electronically Signed By: Kd Stoner Signed Date: 04/12/2025 15:17 ET Workstation ID: [id number] Transcribed By: Self Edit Transcribed Date: 04/12/2025 15:16 ET Narrative 04/12/2025 3:17 PM EDT XR FOREARM 2 VIEWS LEFT INDICATION: pain TECHNIQUE: XR FOREARM 2 VIEWS LEFT COMPARISON: No priors available. Procedure Note Kd Stoner MD - 04/12/2025 XR FOREARM 2 VIEWS LEFT INDICATION: pain TECHNIQUE: XR FOREARM 2 VIEWS LEFT COMPARISON: No priors available. IMPRESSION: FINDINGS/IMPRESSION: Two views of the forearm demonstrating osteopenia.Degenerative changes at the wrist and elbow. No acute fracture. -------- FINAL REPORT -------- Dictated By: Kd Stoner Dictated Date: 04/12/2025 15:16 ET Assigned Physician: Kd Stoner Reviewed and Electronically Signed By: Kd Stoner Signed Date: 04/12/2025 15:17 ET Workstation ID: [id number] Transcribed By: Self Edit Transcribed Date: 04/12/2025 15:16 ET Lisandra ANDREWS IMG XR PROCEDURES Aundrea l Result * XR Elbow 3+ Views Left (04/12/2025 2:59 PM EDT) Anatomical Region Laterality Modality Upper Extremities, Elbow Left Radiogr aphic Imaging 04/12/2025 3:17 PM EDT Impressions 04/12/2025 3:18 PM EDT FINDINGS/IMPRESSION: Degenerative changes of the elbow. No visible fracture. Normal alignment. -------- FINAL REPORT -------- Dictated By: Kd Stoner Dictated Date: 04/12/2025 15:17 ET Assigned Physician: Kd Stoner Reviewed and Electronically Signed By: Kd Stoner Signed Date: 04/12/2025 15:18 ET Workstation ID: [id number] Transcribed By: Self Edit Transcribed Date: 04/12/2025 15:17 ET Narrative 04/12/2025 3:18 PM EDT XR ELBOW 3+ VIEWS LEFT INDICATION: pain TECHNIQUE: XR ELBOW 3+ VIEWS LEFT COMPARISON: No priors available. Procedure Note Kd Stoner MD - 04/12/2025 XR ELBOW 3+ VIEWS LEFT INDICATION: pain TECHNIQUE: XR ELBOW 3+ VIEWS LEFT COMPARISON: No priors available. IMPRESSION: FINDINGS/IMPRESSION: Degenerative changes of the elbow. No visiblefracture. Normal alignment. -------- FINAL REPORT -------- Dictated By: Kd Stoner Dictated Date: 04/12/2025 15:17 ET Assigned Physician: Kd Stoner Reviewed and Electronically Signed By: Kd Stoner Signed Date: 04/12/2025 15:18 ET Workstation ID: [id number] Transcribed By: Self Edit Transcribed Date: 04/12/2025 15:17 ET Lisandra ANDREWS IMG XR PROCEDURES Aundrea l Result * Laceration Repair (04/12/2025 11:16 AM EDT) Dakotah Stevenson DO - 04/12/2025 11:16 AM EDT JULIANA Dhaliwal 04/12/2025 11:18 AM Laceration Repair Date/Time: 04/12/2025 11:16 AM Performed by: JULIANA Dhaliwal Authorized by: JULIANA Dhaliwal Consent: Consent obtained: Verbal Consent given by: Patient Alternatives discussed: No treatment [place] protocol: Procedure explained and questions answered to patient or proxy's satisfaction: yes Imaging studies available: yes Patient identity confirmed: Verbally with patient Anesthesia: Anesthesia method: None (Discussed patient decision making) Laceration details: Location: Scalp Scalp location: Occipital Pre-procedure details: Preparation: Patient was prepped and draped in usual sterile fashion Treatment: Irrigation solution: Sterile saline Visualized foreign bodies/material removed: no Debridement: None Undermining: None Scar revision: no Skin repair: Repair method: Chong Number of chong: 8 Approximation: Approximation: Close Repair type: Repair type: Simple Post-procedure details: Dressing: Bulky dressing Procedure completion: Tolerated Comments: Patient had significant amount of bleeding with wound. us Lisandra ANDREWS IN [facility]IC[facility] Final Result * (ABNORMAL) CBC auto differential (04/12/2025 8:03 AM EDT) Only the most recent of6 resultswithin the time period is included. [facility] Signature WBC 9.3 4.8 - 10.8 K/mcL LAB HEMETOLOGY METHOD 04/12/2025 8:57 AM [facility] RBC 3.70(L) 3.80 - 4.80 M/mcL LAB HEMETOLOGY METHOD 04/12/2025 8:57 AM [facility] Hemoglobin 9.5(L) 11.5 - 16.0 g/dL LAB HEMETOLOGY METHOD 04/12/2025 8:57 AM [facility] Hematocrit 30.7(L) 35.0 - 47.0 % LAB HEMETOLOGY METHOD 04/12/2025 8:57 AM [facility] MCV 84.1 79.0 - 98.0 FL LAB HEMETOLOGY METHOD 04/12/2025 8:57 AM [facility] MCH 26.0(L) 27.0 - 32.0 pcg LAB HEMETOLOGY METHOD 04/12/2025 8:57 AM [facility] MCHC 30.9(L) 32.0 - 37.0 g/dL LAB HEMETOLOGY METHOD 04/12/2025 8:57 AM [facility] RDW 20.5(H) 11.0 - 15.0 % LAB HEMETOLOGY METHOD 04/12/2025 8:57 AM [facility] Platelets 268 130 - 400 K/mcL LAB HEMETOLOGY METHOD 04/12/2025 8:57 AM [facility] MPV 11.1(H) 7.0 - 11.0 FL LAB HEMETOLOGY METHOD 04/12/2025 8:57 AM [facility] NRBC 0.0 <1.0 % LAB HEMETOLOGY METHOD 04/12/2025 8:57 AM [facility] NRBC Absolute 0.00 <0.10 K/mcL LAB HEMETOLOGY METHOD 04/12/2025 8:57 AM [facility] Neutrophils Relative 67.6 % LAB HEMETOLOGY METHOD 04/12/2025 8:57 AM [facility] Lymphocytes Relative 20.8 % LAB HEMETOLOGY METHOD 04/12/2025 8:57 AM [facility] Monocytes Relative 8.6 % LAB HEMETOLOGY METHOD 04/12/2025 8:57 AM [facility] Eosinophils Relative 2.0 % LAB HEMETOLOGY METHOD 04/12/2025 8:57 AM [facility] Basophils Relative 0.5 % LAB HEMETOLOGY METHOD 04/12/2025 8:57 AM [facility] Immature Granulocytes Relative 0.5 % LAB HEMETOLOGY METHOD 04/12/2025 8:57 AM [facility] Neutrophils Absolute 6.25 1.50 - 7.00 K/mcL LAB HEMETOLOGY METHOD 04/12/2025 8:57 AM [facility] Lymphocytes Absolute 1.93 1.00 - 5.00 K/mcL LAB HEMETOLOGY METHOD 04/12/2025 8:57 AM [facility] Monocytes Absolute 0.80 0.20 - 1.00 K/mcL LAB HEMETOLOGY METHOD 04/12/2025 8:57 AM [facility] Eosinophils Absolute 0.19 0.00 - 0.50 K/mcL LAB HEMETOLOGY METHOD 04/12/2025 8:57 AM [facility] Basophils Absolute 0.05 0.00 - 0.20 K/mcL LAB HEMETOLOGY METHOD 04/12/2025 8:57 AM [facility] Immature Granulocytes Absolute 0.05(H) 0.00 - 0.03 K/mcL LAB HEMETOLOGY METHOD 04/12/2025 8:57 AM EDT [facility] Blood Venous blood specimen / Unknown Venipuncture / Unknown 04/12/2025 8:03 AM EDT 04/12/2025 8:35 AM EDT Dakotah Long DO LAB BLOOD ORDERABLES Final Result Performing Organization Address [facility] Co de Phone Number [facility] [address] [place] [address], [place] [phone] * Protime-INR (04/12/2025 8:03 AM EDT) Protime 13.3 10.6 - 13.9 sec LAB COAGULATION METHOD 04/12/2025 8:43 AM EDT [facility] INR 1.1 LAB COAGULATION METHOD 04/12/2025 8:43 AM EDT [facility] Blood Venous blood specimen / Unknown Venipuncture / Unknown 04/12/2025 8:03 AM EDT 04/12/2025 8:35 AM EDT Dakotah Long DO LAB BLOOD ORDERABLES Final Result Performing Organization Address [facility] de Phone Number [facility] [address] [place] [address], [place] [phone] * CT Cervical Spine wo Contrast (04/12/2025 7:49 AM EDT) Anatomical Region Laterality Modality Spine, C-spine Computed Tomogra phy 04/12/2025 8:31 AM EDT Impressions 04/12/2025 8:35 AM EDT Degenerative changes without cervical spine fracture, subluxation or significant soft tissue swelling. -------- FINAL REPORT -------- Dictated By: Desirae Hinds Dictated Date: 04/12/2025 08:31 ET Assigned Physician: Desirae Hinds Reviewed and Electronically Signed By: Desirae Hinds Signed Date: 04/12/2025 08:35 ET Workstation ID: [id number] Transcribed By: Self Edit Transcribed Date: 04/12/2025 08:31 ET Narrative 04/12/2025 8:35 AM EDT INDICATION: Head and neck trauma with laceration Technique: CT scan of the cervical spine obtained without contrast. Scanner: [employer] revolution frontier 128 slice VCT Dose reduction technique: ASIR (Adaptive statistical iterative reconstruction) and/or AEC (automated exposure control) Dose: total exam DLP 1814 mGY per cm Comparison: No prior studies available for comparison. FINDINGS: Vertebral bodies: Multilevel degenerative changes without acute fracture or subluxation. Significant left-sided C2-C3 C3-C4 facet joint hypertrophy. Multilevel neural foramina narrowing severe on the right side at C5-C6 level. Soft tissue: No evidence of prevertebral or paraspinal soft tissue swelling or hematoma. Other: Airway within normal limits. No cervical lymphadenopathy. No significant vascular calcifications. Retropharyngeal course of the ICAs bilaterally. Lung apices are clear. No significant thyroid abnormality. Procedure Note Desirae Hinds MD - 04/12/2025 INDICATION: Head and neck trauma with laceration Technique: CT scan of the cervical spine obtained without contrast. Scanner: GE revolution frontier 128 slice VCT Dose reduction technique: ASIR (Adaptive statistical iterativereconstruction) and/or AEC (automated exposure control) Dose: total exam DLP 1814 mGY per cm Comparison: No prior studies available for comparison. FINDINGS: Vertebral bodies: Multilevel degenerative changes without acute fractureor subluxation. Significant left-sided C2-C3 C3-C4 facet jointhypertrophy. Multilevel neural foramina narrowing severe on the right sideat C5-C6 level. Soft tissue: No evidence of prevertebral or paraspinal soft tissueswelling or hematoma. Other: Airway within normal limits. No cervical lymphadenopathy. Nosignificant vascular calcifications. Retropharyngeal course of the ICAsbilaterally. Lung apices are clear. No significant thyroid abnormality. IMPRESSION: Degenerative changes without cervical spine fracture, subluxation orsignificant soft tissue swelling. -------- FINAL REPORT -------- Dictated By: Desirae Hinds Dictated Date: 04/12/2025 08:31 ET Assigned Physician: Desirae Hinds Reviewed and Electronically Signed By: Desirae Hinds Signed Date: 04/12/2025 08:35 ET Workstation ID: [id number] Transcribed By: Self Edit Transcribed Date: 04/12/2025 08:31 ET us Dakotah No Kenney DO IMG CT PROCEDURES Final Res ult * CT Head wo Contrast (04/12/2025 7:49 AM EDT) Anatomical Region Laterality Modality Head and Neck Computed Tomogra phy 04/12/2025 8:36 AM EDT Impressions 04/12/2025 8:37 AM EDT No evidence of acute intracranial process on noncontrast head CT. Mild atrophy and age-related changes. -------- FINAL REPORT -------- Dictated By: Desirae Hinds Dictated Date: 04/12/2025 08:36 ET Assigned Physician: Desirae Hinds Reviewed and Electronically Signed By: Desirae Hinds Signed Date: 04/12/2025 08:37 ET Workstation ID: [id number] Transcribed By: Self Edit Transcribed Date: 04/12/2025 08:36 ET Narrative 04/12/2025 8:37 AM EDT INDICATION: Head trauma Technique: Axial images were obtained from the skull base to the vertex without contrast enhancement. Coronal and sagittal reformats obtained. Scanner: [employer] 128 slice VCT Dose reduction technique: ASIR (Adaptive statistical iterative reconstruction) Dose: total exam DLP 1815 mGY per cm Comparison: Compared to multiple prior studies most recent from March 30, 2024. FINDINGS: Intracranial contents: No acute intracranial hemorrhage, midline shift or mass-effect. The ventricles, sulci, sylvian fissures and basilar cisterns are symmetrically enlarged most consistent with atrophy. Minimal periventricular white matter changes are most consistent with small vessel ischemic disease. There are no abnormal intra or extra-axial fluid collections. Bony structures/soft tissues: Normal bony structures. Mild soft tissue swelling posteriorly along the vertex with overlying bandage. Sinuses: paranasal sinuses are clear. Procedure Note Desirae Hinds MD - 04/12/2025 INDICATION: Head trauma Technique: Axial images were obtained from the skull base to the vertexwithout contrast enhancement. Coronal and sagittal reformats obtained. Scanner: [employer] 128 slice VCT Dose reduction technique: ASIR (Adaptive statistical iterativereconstruction) Dose: total exam DLP 1815 mGY per cm Comparison: Compared to multiple prior studies most recent from March. FINDINGS: Intracranial contents: No acute intracranial hemorrhage, midline shift ormass- effect. The ventricles, sulci, sylvian fissures and basilar cisternsare symmetrically enlarged most consistent with atrophy. Minimalperiventricular white matter changes are most consistent with small vesselischemic disease. There are no abnormal intra or extra-axial fluidcollections. Bony structures/soft tissues: Normal bony structures. Mild soft tissueswelling posteriorly along the vertex with overlying bandage. Sinuses: paranasal sinuses are clear. IMPRESSION: No evidence of acute intracranial process on noncontrast head CT. Mild atrophy and age-related changes. -------- FINAL REPORT -------- Dictated By: Desirae Hinds Dictated Date: 04/12/2025 08:36 ET Assigned Physician: Desirae Hinds Reviewed and Electronically Signed By: Desirae Hinds Signed Date: 04/12/2025 08:37 ET Workstation ID: [id number] Transcribed By: Self Edit Transcribed Date: 04/12/2025 08:36 ET us Dakotah Long DO IMG CT PROCEDURES Final Res ult * (ABNORMAL) Complete blood count (03/28/2025 5:24 AM EDT) Only the most recent of2 resultswithin the time period is included. WBC 6.2 4.8 - 10.8 K/[facility] LAB HEMETOLOGY METHOD 03/28/2025 10:46 AM EDT [facility] RBC 4.00 3.80 - 4.80 M/mcL LAB HEMETOLOGY METHOD 03/28/2025 10:46 AM EDT [facility] Hemoglobin 10.3(L) 11.5 - 16.0 g/dL LAB HEMETOLOGY METHOD 03/28/2025 10:46 AM EDT [facility] Hematocrit 35.0 35.0 - 47.0 % LAB HEMETOLOGY METHOD 03/28/2025 10:46 AM EDT [facility] MCV 87.5 79.0 - 98.0 FL LAB HEMETOLOGY METHOD 03/28/2025 10:46 AM EDT [facility] MCH 25.8(L) 27.0 - 32.0 pcg LAB HEMETOLOGY METHOD 03/28/2025 10:46 AM EDT [facility] MCHC 29.4(L) 32.0 - 37.0 g/dL LAB HEMETOLOGY METHOD 03/28[facility]2025 10:[facility] RDW 21.6(H) 11.0 - 15.0 % LAB HEMETOLOGY METHOD 03/28/2025 10:46 AM EDT [facility] Platelets 305 130 - 400 K/mcL LAB HEMETOLOGY METHOD 03/28/2025 10:46 AM EDT [facility] MPV 10.9 7.0 - 11.0 FL LAB HEMETOLOGY METHOD 03/28/2025 10:46 AM [facility] NRBC 0.0 <1.0 % LAB HEMETOLOGY METHOD 03/28/2025 10:46 AM EDT [facility] NRBC Absolute 0.00 <0.10 K/mcL LAB HEMETOLOGY METHOD 03/28/2025 10:46 AM [facility] Blood Venous blood specimen / Unknown Venipuncture / Unknown 03/28/2025 5:24 AM EDT 03/28/2025 10:08 AM EDT us Marvin Juarez MD LAB BLOOD ORDERABLES Final Resul t [facility] [address] [place] [address], * (ABNORMAL) Comprehensive metabolic panel (03/28/2025 5:24 AM EDT) Only the most recent of4 resultswithin the time period is included. Sodium 134 133 - 145 mmol/L LAB CHEMISTRY METHOD 03/28/2025 12:31 PM [facility] Potassium 4.7 3.5 - 5.5 mmol/L LAB CHEMISTRY METHOD 03/28/2025 12:31 PM [facility] Chloride 95(L) 96 - 110 mmol/L LAB CHEMISTRY METHOD 03/28/2025 12:31 PM [facility] CO2 32 21 - 32 mmol/L LAB CHEMISTRY METHOD 03/28/2025 12:31 PM [facility] Anion Gap 7 3 - 11 LAB CHEMISTRY METHOD 03/28/2025 12:31 PM [facility] Glucose 77 70 - 100 mg/dL LAB CHEMISTRY METHOD 03/28/2025 12:31 PM [facility] BUN 6 5 - 25 mg/dL LAB CHEMISTRY METHOD 03/28/2025 12:31 PM [facility] Creatinine 0.54 0.50 - 1.10 mg/dL LAB CHEMISTRY METHOD 03/28/2025 12:31 PM [facility] eGFR 101 >=60 mL/min/1. 73m2 LAB CHEMISTRY METHOD 03/28/2025 12:31 PM [facility] Comment:Calculation based on the Chronic Kidney Disease Epidemiology Collaboration (CKD-EPI) equation refit without adjustment for race. BUN/Creatinine Ratio 11.1 LAB CHEMISTRY METHOD 03/28/2025 12:31 PM [facility] Calcium 9.5 8.5 - 10.5 mg/dL LAB CHEMISTRY METHOD 03/28/2025 12:31 PM [facility] AST (SGOT) 25 10 - 42 unit/L LAB CHEMISTRY METHOD 03/28/2025 12:31 PM EDT [facility] ALT (SGPT) 28 10 - 60 unit/L LAB CHEMISTRY METHOD 03/28/2025 12:31 PM EDT [facility] Alkaline Phosphatase 113 42 - 121 unit/L LAB CHEMISTRY METHOD 03/28/2025 12:31 PM EDT [facility] Total Protein 6.0 6.0 - 8.0 g/dL LAB CHEMISTRY METHOD 03/28/2025 12:31 PM EDT [facility] Albumin 3.1(L) 3.2 - 5.0 g/dL LAB CHEMISTRY METHOD 03/28/2025 12:31 PM EDT [facility] Total Bilirubin 0.5 0.0 - 1.4 mg/dL LAB CHEMISTRY METHOD 03/28/2025 12:31 PM EDT [facility] Blood Venous blood specimen / Unknown Venipuncture / Unknown 03/28/2025 5:24 AM EDT 03/28/2025 10:08 AM EDT Marvin Juarez MD LAB BLOOD ORDERABLES Final Resul t [facility] [address] [place] [address], * (ABNORMAL) Magnesium (03/26/2025 6:32 AM EDT) Only the most recent of7 resultswithin the time period is included. Magnesium 1.7(L) 1.9 - 2.6 mg/dL LAB CHEMISTRY METHOD 03/26/2025 8:09 AM EDT [facility] Blood Venous blood specimen / Unknown Venipuncture / Unknown 03/26/2025 6:32 AM EDT 03/26/2025 7:19 AM EDT us Jefferson Cho MD LAB BLOOD ORDERABLES Final Re sult Performing Organization Address [facility] de Phone Number [facility] [address] [place] [address], [place] [phone] * Lavender tube (03/25/2025 5:22 AM EDT) Only the most recent of2 resultswithin the time period is included. Extra Tube Hold for add-ons. 03/25/2025 12:01 PM EDT [facility] Comment:Auto resulted. Blood Venous blood specimen / Unknown Venipuncture / Unknown 03/25/2025 5:22 AM EDT 03/25/2025 6:29 AM EDT Jefferson Cho MD LAB BLOOD ORDERABLES Final Re sult Performing Organization Address [facility] de Phone Number [facility] [address] [place] [address], [place] [phone] * US Abdomen Limited (03/23/2025 11:16 AM EDT) Anatomical Region Laterality Modality Body Ultrasound 03/23/2025 11:4 8 AM EDT Impressions 03/23/2025 11:49 AM EDT CHOLELITHIASIS WITHOUT EVIDENCE OF CHOLECYSTITIS. HEPATIC STEATOSIS. NO BILIARY DUCT DILATATION. -------- FINAL REPORT -------- Dictated By: AMRIK SARAVIA Dictated Date: 03/23/2025 11:48 ET Assigned Physician: AMRIK SARAVIA Reviewed and Electronically Signed By: AMRIK SARAVIA Signed Date: 03/23/2025 11:49 ET Workstation ID: [id number] Transcribed By: Self Edit Transcribed Date: 03/23/2025 11:48 ET Narrative 03/23/2025 11:49 AM EDT PROCEDURE: US ABDOMEN LIMITED INDICATION: Cholecystitis TECHNIQUE: 2-D ahn scale, color Doppler ultrasound of the abdomen. COMPARISON: 03/20/2025 CTA FINDINGS: Hepatic steatosis. No focal liver lesions. Normal directional flow within the main portal vein. Cholelithiasis. No gallbladder wall thickening. Sonographic Malin sign is negative. No biliary duct dilatation. Common bile duct measures 4 mm. Right kidney measures 11.2 cm in length. No hydronephrosis. No ascites. Visualized portions of aorta, IVC, and pancreas are within normal limits. Procedure Note Amrik Saravia MD - 03/23/2025 PROCEDURE: US ABDOMEN LIMITED INDICATION: Cholecystitis TECHNIQUE: 2-D ahn scale, color Doppler ultrasound of the abdomen. COMPARISON: 03/20/2025 CTA FINDINGS: Hepatic steatosis. No focal liver lesions. Normal directionalflow within the main portal vein. Cholelithiasis. No gallbladder wall thickening. Sonographic Malin signis negative. No biliary duct dilatation. Common bile duct measures 4 mm. Right kidney measures 11.2 cm in length. No hydronephrosis. No ascites. Visualized portions of aorta, IVC, and pancreas are within normal limits. IMPRESSION: CHOLELITHIASIS WITHOUT EVIDENCE OF CHOLECYSTITIS. HEPATIC STEATOSIS. NO BILIARY DUCT DILATATION. -------- FINAL REPORT -------- Dictated By: AMRIK SARAVIA Dictated Date: 03/23/2025 11:48 ET Assigned Physician: AMRIK SARAVIA Reviewed and Electronically Signed By: AMRIK SARAVIA Signed Date: 03/23/2025 11:49 ET Workstation ID: [id number] Transcribed By: Self Edit Transcribed Date: 03/23/2025 11:48 ET us Jessica KAPOOR US PROCEDURES Final Re sult * (ABNORMAL) Hepatic function panel (03/23/2025 5:33 AM EDT) Total Protein 5.9(L) 6.0 - 8.0 g/dL LAB CHEMISTRY METHOD 03/23/2025 10:06 AM EDT [facility] Albumin 2.9(L) 3.2 - 5.0 g/dL LAB CHEMISTRY METHOD 03/23/2025 10:06 AM EDT [facility] Total Bilirubin 0.8 0.0 - 1.4 mg/dL LAB CHEMISTRY METHOD 03/23/2025 10:06 AM EDT [facility] Bilirubin, Direct 0.4(H) 0.0 - 0.3 mg/dL LAB CHEMISTRY METHOD 03/23/2025 10:06 AM EDT [facility] Bilirubin, Indirect 0.4 0.0 - 1.1 mg/dL LAB CHEMISTRY METHOD 03/23/2025 10:06 AM EDT [facility] ALT (SGPT) 24 10 - 60 unit/L LAB CHEMISTRY METHOD 03/23/2025 10:06 AM EDT [facility] AST (SGOT) 33 10 - 42 unit/L LAB CHEMISTRY METHOD 03/23/2025 10:06 AM EDT [facility] Alkaline Phosphatase 111 42 - 121 unit/L LAB CHEMISTRY METHOD 03/23/2025 10:06 AM T [facility] Blood Venous blood specimen / Unknown Venipuncture / Unknown 03/23/2025 5:33 AM EDT 03/23/2025 6:19 AM EDT Jessica ANDREWS LAB BLOOD ORDERABLES Final Result Performing Organization Address City/[facility]/ZIP Co de Phone Number [facility] [address] [place] [address], [place] [phone] * Potassium (03/22/2025 12:10 PM EDT) Potassium 3.7 3.5 - 5.5 mmol/L LAB CHEMISTRY METHOD 03/22/2025 12:46 PM EDT [facility] Blood Venous blood specimen / Unknown Venipuncture / Unknown 03/22/2025 12:10 PM EDT 03/22/2025 12:31 PM EDT Jessica ANDREWS LAB BLOOD ORDERABLES Final Result [facility] [address] [place] [address], [place] [phone] * Light blue tube (03/21/2025 2:23 PM EDT) [facility] Extra Tube Hold for add-ons. 03/21/2025 4:02 PM EDT [facility] Comment:Auto resulted. Blood Venous blood specimen / Unknown 03/21/2025 2:23 PM EDT 03/21/2025 2:56 PM EDT us Jefferson Cho MD LAB BLOOD ORDERABLES Final Re sult [facility] [address] [place] [address], [place] [phone] * (ABNORMAL) Urinalysis with reflex microscopic (03/21/2025 1:27 AM EDT) [facility] Specific [place] Urine 1.032(H) 1.003 - 1.030 LAB URINALYSIS - AUTOMATED METHOD 03/21/2025 2:14 AM [facility] pH, Urine 7.5 5.0 - 8.0 pH LAB URINALYSIS - AUTOMATED METHOD 03/21/2025 2:14 AM [facility] Leukocytes, Urine Negative Negative LAB URINALYSIS - AUTOMATED METHOD 03/21/2025 2:14 AM [facility] Nitrite, Urine Negative Negative LAB URINALYSIS - AUTOMATED METHOD 03/21/2025 2:14 AM [facility] Protein, Urine 30(A) <=Trace mg/dL LAB URINALYSIS - AUTOMATED METHOD 03/21/2025 2:14 AM [facility] Glucose, Urine Negative Negative mg/dL LAB URINALYSIS - AUTOMATED METHOD 03/21/2025 2:14 AM [facility] Ketones, Urine 15(A) Negative mg/dL LAB URINALYSIS - AUTOMATED METHOD 03/21/2025 2:14 AM EDT [facility] Urobilinogen, Urine 0.2 0.2 - 1.0 mg/dL LAB URINALYSIS - AUTOMATED METHOD 03/21/2025 2:14 AM [facility] Bilirubin, Urine Negative Negative LAB URINALYSIS - AUTOMATED METHOD 03/21/2025 2:14 AM [facility] Blood, Urine Negative Negative LAB URINALYSIS - AUTOMATED METHOD 03/21/2025 2:14 AM [facility] RBC, Urine 4.3(H) 0 - 4 /HPF LAB URINALYSIS - AUTOMATED METHOD 03/21/2025 2:14 AM [facility] WBC, Urine 0.7 0 - 4 /HPF LAB URINALYSIS - AUTOMATED METHOD 03/21/2025 2:14 AM [facility] Squamous Epithelial, Urine 24 0 - 60 /LPF LAB URINALYSIS - AUTOMATED METHOD 03/21/2025 2:14 AM [facility] Bacteria, Urine Negative Negative /HPF LAB URINALYSIS - AUTOMATED METHOD 03/21/2025 2:14 AM [facility] Hyaline Casts, Urine 0.4 0 - 3 /LPF LAB URINALYSIS - AUTOMATED METHOD 03/21/2025 2:14 AM [facility] Urine Urine specimen obtained by clean catch procedure / Unknown Non-blood Collection / Unknown 03/21/2025 1:27 AM EDT 03/21/2025 2:04 AM EDT us Filemon Hyatt MD LAB URINE ORDERABLES Final Res ult [facility] [address] [place] [address], [place] [phone] * (ABNORMAL) Urinalysis with reflex microscopic and culture (03/21/2025 1:27 AM EDT) Specific [place] Urine 1.032(H) 1.003 - 1.030 LAB URINALYSIS - AUTOMATED METHOD 03/21/2025 2:14 AM [facility] pH, Urine 7.5 5.0 - 8.0 pH LAB URINALYSIS - AUTOMATED METHOD 03/21/2025 2:14 AM [facility] Leukocytes, Urine Negative Negative LAB URINALYSIS - AUTOMATED METHOD 03/21/2025 2:14 AM [facility] Nitrite, Urine Negative Negative LAB URINALYSIS - AUTOMATED METHOD 03/21/2025 2:14 AM [facility] Protein, Urine 30(A) <=Trace mg/dL LAB URINALYSIS - AUTOMATED METHOD 03/21/2025 2:14 AM [facility] Glucose, Urine Negative Negative mg/dL LAB URINALYSIS - AUTOMATED METHOD 03/21/2025 2:14 AM [facility] Ketones, Urine 15(A) Negative mg/dL LAB URINALYSIS - AUTOMATED METHOD 03/21/2025 2:14 AM [facility] Urobilinogen, Urine 0.2 0.2 - 1.0 mg/dL LAB URINALYSIS - AUTOMATED METHOD 03/21/2025 2:14 AM [facility] Bilirubin, Urine Negative Negative LAB URINALYSIS - AUTOMATED METHOD 03/21/2025 2:14 AM [facility] Blood, Urine Negative Negative LAB URINALYSIS - AUTOMATED METHOD 03/21/2025 2:14 AM [facility] RBC, Urine 4.3(H) 0 - 4 /HPF LAB URINALYSIS - AUTOMATED METHOD 03/21/2025 2:14 AM [facility] WBC, Urine 0.7 0 - 4 /HPF LAB URINALYSIS - AUTOMATED METHOD 03/21/2025 2:14 AM [facility] Squamous Epithelial, Urine 24 0 - 60 /LPF LAB URINALYSIS - AUTOMATED METHOD 03/21/2025 2:14 AM EDT [facility] Bacteria, Urine Negative Negative /HPF LAB URINALYSIS - AUTOMATED METHOD 03/21/2025 2:14 AM EDT [facility] Hyaline Casts, Urine 0.4 0 - 3 /LPF LAB URINALYSIS - AUTOMATED METHOD 03/21/2025 2:14 AM EDT [facility] Urine Urine specimen obtained by clean catch procedure / Unknown Non-blood Collection / Unknown 03/21/2025 1:27 AM EDT 03/21/2025 2:04 AM EDT us Benjamin ANDREWS LAB URINE ORDERABLES Final Resul t Performing Organization Address [facility]/ZIP Co de Phone Number [facility] [address] [place] [address], [place] [phone] * Ahn urine culture tube (03/21/2025 1:27 AM EDT) Extra Tube Hold for add-ons. 03/21/2025 4:01 AM EDT [facility] Comment:Auto resulted. Urine Urine specimen obtained by clean catch procedure / Unknown Non-blood Collection / Unknown 03/21/2025 1:27 AM EDT 03/21/2025 2:04 AM EDT us Benjamin ANDREWS LAB URINE ORDERABLES Final Resul t [facility] [address] [place] [address], [place] [phone] * Procalcitonin (03/20/2025 5:19 PM EDT) Procalcitonin 0.07 <=0.16 ng/mL LAB CHEMISTRY METHOD 03/21/2025 8:32 AM EDT [facility] Blood Venous blood specimen / Unknown Venipuncture / Unknown 03/20/2025 5:19 PM EDT 03/20/2025 6:09 PM EDT [facility]ative [facility] - 03/21/2025 8:32 AM EDT Procalcitonin > 2.00 ng/ml: Procalcitonin Levels above 2.00 ng/ml, on the first day of ICU admission represent a high risk for progression to severe sepsis and/or septic shock. Procalcitonin < 0.50 ng/ml: Procalcitonin levels below 0.50 ng/ml on the first day of ICU admission represent a low risk for progression to severe sepsis and/or septic shock. Concentrations <0.5 ng/mL do not exclude an infection, on account of local ized infections (without systemic signs) which can be associated with such low concentrations, or a systemic infection in its initial stages (<6 hours). Furthermore, increased procalcitonin can occur without infection. PCT concentrations between 0.5 and 2.0 ng/mL should be interpreted taking into account the patient's history. It is recommended to retest PCT within 6-24 hours if any concentrations <2.0 ng/mL are obtained. us Filemon Hyatt MD LAB BLOOD ORDERABLES Final Res ult [facility] [address] [place] [address], [place] [phone] * CT Angio Abdomen Pelvis wo and/or w Contrast (03/20/2025 12:06 PM EDT) Anatomical Region Laterality Modality Body Computed Tomogra phy 03/20/2025 12:2 5 PM EDT Impressions 03/20/2025 12:42 PM EDT Impression: There is no large vessel occlusion. There is significant atherosclerotic plaque with evidence of prior gastroduodenal artery embolization. The left colon does demonstrate mural edema compatible with infectious/inflammatory process with ischemia not excluded. There is no pneumatosis. Bowel enhancement cannot be evaluated on this early arterial phase. -------- FINAL REPORT -------- Dictated By: Kd Stoner Dictated Date: 03/20/2025 12:25 ET Assigned Physician: Kd Stoner Reviewed and Electronically Signed By: Kd Stoner Signed Date: 03/20/2025 12:42 ET Workstation ID: [id number] Transcribed By: Self Edit Transcribed Date: 03/20/2025 12:31 ET Narrative 03/20/2025 12:[address] angiography abdomen and pelvis INDICATION: Mesenteric ischemia, chronic abd pain; ? bowel ischemia Comparison: None TECHNIQUE: CT angiography of the abdomen and pelvis following the intravenous administration of 100cc Isovue 370. Multiplanar reformats. The examination was performed utilizing dose reduction techniques. 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 Similarly stenoses of the renal arteries. There is a gastroduodenal artery embolization. Extensive atherosclerotic plaque throughout the aorta and iliac vessels with patent right iliac stent. Nonvascular findings: Lung bases: Small right greater than left pleural effusions with associated right basilar volume loss/infiltrate. There is trace left basilar atelectasis. I megaly with valvular calcifications. Spleen: Normal. Pancreas: Normal. Liver: Diffuse hepatic steatosis Gallbladder/biliary: Cholelithiasis. Adrenals: Adrenal thickening Kidneys: Cannot exclude stones due to contrast excretion. Bowel/mesentery: There is diverticulosis without evidence for acute diverticulitis. No pneumatosis or mesenteric edema. Bowel wall enhancement not well evaluated due to early contrast phase timing. There is question of some mural edema in involving the descending colon. Infectious/inflammatory process or even ischemia is not excluded. Lymph nodes: No pathologically enlarged lymph nodes. Bladder: Significant bladder distention. Pelvic organs: Normal. Osseous structures: Kyphoplasty changes at T12. Chronic appearing superior endplate fractures at L2 and L3. Remote rib deformities. Other: Mild soft tissue edema. Procedure Note Kd Stoner MD - 03/20/2025 CT angiography abdomen and pelvis INDICATION: Mesenteric ischemia, chronic abd pain; ? bowel ischemia Comparison: None TECHNIQUE: CT angiography of the abdomen and pelvis following theintravenous administration of 100cc Isovue 370. Multiplanar reformats. Theexamination was performed utilizing dose reduction techniques. 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 Similarlystenoses of the renal arteries. There is a gastroduodenal arteryembolization. Extensive atherosclerotic plaque throughout the aorta andiliac vessels with patent right iliac stent. Nonvascular findings: Lung bases: Small right greater than left pleural effusions withassociated right basilar volume loss/infiltrate. There is trace leftbasilar atelectasis. I megaly with valvular calcifications. Spleen: Normal. Pancreas: Normal. Liver: Diffuse hepatic steatosis Gallbladder/biliary: Cholelithiasis. Adrenals: Adrenal thickening Kidneys: Cannot exclude stones due to contrast excretion. Bowel/mesentery: There is diverticulosis without evidence for acutediverticulitis. No pneumatosis or mesenteric edema. Bowel wallenhancement not well evaluated due to early contrast phase timing. Thereis question of some mural edema in involving the descending colon.Infectious/inflammatory process or even ischemia is not excluded. Lymph nodes: No pathologically enlarged lymph nodes. Bladder: Significant bladder distention. Pelvic organs: Normal. Osseous structures: Kyphoplasty changes at T12. Chronic appearingsuperior endplate fractures at L2 and L3. Remote rib deformities. Other: Mild soft tissue edema. IMPRESSION: Impression: There is no large vessel occlusion. There is significant atheroscleroticplaque with evidence of prior gastroduodenal artery embolization. Theleft colon does demonstrate mural edema compatible withinfectious/inflammatory process with ischemia not excluded. There is nopneumatosis. Bowel enhancement cannot be evaluated on this early arterialphase. -------- FINAL REPORT -------- Dictated By: Kd Stoner Dictated Date: 03/20/2025 12:25 ET Assigned Physician: Kd Stoner Reviewed and Electronically Signed By: Kd Stoner Signed Date: 03/20/2025 12:42 ET Workstation ID: [id number] Transcribed By: Self Edit Transcribed Date: 03/20/2025 12:31 ET us Kailey ANDREWS IMG CT PROCEDURES Final Resu lt * Lactate (03/20/2025 10:43 AM EDT) Lactate 1.3 0.4 - 2.0 mmol/L LAB CHEMISTRY METHOD 03/20/2025 11:21 AM EDT [facility]) [facility] Blood Venous blood specimen / Unknown Venipuncture / Unknown 03/20/2025 10:43 AM EDT 03/20/2025 10:49 AM EDT Filemon Hyatt MD LAB BLOOD ORDERABLES Final Res ult Performing Organization Address [facility] Co de Phone Number [facility] [address] [place] [address], [place] [phone] * (ABNORMAL) Lactate, with reflex (03/20/2025 8:34 AM EDT) Only the most recent of2 resultswithin the time period is included. LACTIC ACID 3.3(HH) 0.4 - 2.0 mmol/L LAB CHEMISTRY METHOD 03/20/2025 9:35 AM EDT [facility] Blood Venous blood specimen / Unknown Venipuncture / Unknown 03/20/2025 8:34 AM EDT 03/20/2025 8:57 AM EDT Benjamin ANDREWS LAB BLOOD ORDERABLES Final Resul t Performing Organization Address [facility] de Phone Number [facility] [address] [place] [address], [place] [phone] * CT Abdomen Pelvis w Contrast (03/20/2025 7:08 AM EDT) Anatomical Region Laterality Modality Body Computed Tomogra phy 03/20/2025 7:30 AM EDT Impressions 03/20/2025 7:42 AM EDT Previous embolization. Thickened distal colonic wall may be slightly improved. No evidence of high-grade small bowel obstruction or abscess. Lung base opacities greater on right with some right pleural fluid. The urinary bladder is distended Cholelithiasis. -------- FINAL REPORT -------- Dictated By: Ferny Del Rosario Dictated Date: 03/20/2025 07:30 ET Assigned Physician: Ferny Del Rosario Reviewed and Electronically Signed By: Ferny Del Rosario Signed Date: 03/20/2025 07:42 ET Workstation ID: [id number] Transcribed By: Self Edit Transcribed Date: 03/20/2025 07:31 ET Narrative 03/20/2025 7:42 AM EDT EXAMINATION: CT ABDOMEN/PELVIS WITH IV CONTRAST CLINICAL INFORMATION: Epigastric pain. Nausea/vomiting COMPARISON: Portions of previous 03/05/25 TECHNIQUE: Multidetector CT. Helical examination of the abdomen and pelvis. Imaging performed after the IV administration of contrast. Reformatting in the coronal and sagittal planes. DLP: 1063 mGy-cm Dose optimization was performed including the use of low-dose iterative reconstruction technique with automatic exposure control based on patient size. Type of contrast: ISOVUE 370 Volume of IV contrast: 90 mL Volume of contrast discarded: 0 mL FINDINGS: Digital deputy clerk demonstrates evidence of previous embolization. LIVER: Artifact related to embolic material. Diffuse low attenuation from fatty change. Some sparing of fatty change adjacent to the gallbladder. No suspicious focal liver lesion. BILIARY TRACT: There is cholelithiasis. The gallbladder wall is top normal. No convincing extrahepatic biliary dilation. SPLEEN: Normal size. No focal lesion. PANCREAS: Limited by artifact. No definite abnormality. ADRENAL GLANDS: No suspicious abnormality. KIDNEYS: There is a small exophytic mass arising from the posterior aspect of the mid right kidney which is likely a cyst. No short interval change. The kidneys enhance symmetrically. There is no dilation of the intrarenal collecting system on either side URINARY BLADDER: The bladder is distended. The bladder extends to the L4/L5 level. No definite mass. PELVIC VISCERA: No suspicious abnormality. GASTROINTESTINAL TRACT: The distal colon wall is likely thickened. This was abnormal on 03/05/25. The mural stratification is either improved or less well-demonstrated due to incomplete distention. There are distal colonic diverticula. No definite abscess. The colon interposes between the body wall and the liver which can be a normal variant. No significant small bowel dilation. The stomach is not well distended. Evidence of embolization adjacent to the distal stomach/duodenum. ABDOMINAL WALL: No significant hernia is appreciated. LYMPHOVASCULAR STRUCTURES AND FLUID: There is no abdominal aortic aneurysm. There is marked arterial calcification. There are no measurably enlarged lymph nodes. There is no significant free intraperitoneal fluid. VISUALIZED LOWER CHEST: There is a [id number] amount of right pleural fluid. There may be a trace amount of left pleural fluid. There are bibasilar lung opacities with volume loss in the right lower lobe. There is some volume loss in the middle lobe. There is extensive coronary calcification. There is extensive calcification of the mitral annulus. There is calcification in the region of the aortic valve. MUSCULOSKELETAL: No acute or suspicious osseous abnormality. There is opaque cement at T12. There is volume loss involving the superior endplate of L2-L3. There is degenerative change involving the spine and hips with some sclerosis involving the right femoral head. Procedure Note Ferny Del Rosario MD - 03/20/2025 EXAMINATION: CT ABDOMEN/PELVIS WITH IV CONTRAST CLINICAL INFORMATION: Epigastric pain. Nausea/vomiting COMPARISON: Portions of previous 03/05/25 TECHNIQUE: Multidetector CT. Helical examination of the abdomen and pelvis. Imaging performed after the IV administration of contrast. Reformatting in the coronal and sagittal planes. DLP: 1063 mGy-cm Dose optimization was performed including the use of low-dose iterativereconstruction technique with automatic exposure control based on patientsize. Type of contrast: ISOVUE 370 Volume of IV contrast: 90 mL Volume of contrast discarded: 0 mL FINDINGS: Digital deputy clerk demonstrates evidence of previous embolization. LIVER: Artifact related to embolic material. Diffuse low attenuation fromfatty change. Some sparing of fatty change adjacent to the gallbladder. Nosuspicious focal liver lesion. BILIARY TRACT: There is cholelithiasis. The gallbladder wall is topnormal. No convincing extrahepatic biliary dilation. SPLEEN: Normal size. No focal lesion. PANCREAS: Limited by artifact. No definite abnormality. ADRENAL GLANDS: No suspicious abnormality. KIDNEYS: There is a small exophytic mass arising from the posterior aspectof the mid right kidney which is likely a cyst. No short interval change.The kidneys enhance symmetrically. There is no dilation of the intrarenalcollecting system on either side URINARY BLADDER: The bladder is distended. The bladder extends to theL4/L5 level. No definite mass. PELVIC VISCERA: No suspicious abnormality. GASTROINTESTINAL TRACT: The distal colon wall is likely thickened. Thiswas abnormal on 03/05/25. The mural stratification is either improved orless well-demonstrated due to incomplete distention. There are distalcolonic diverticula. No definite abscess. The colon interposes between the body wall and the liver which can be anormal variant. No significant small bowel dilation. The stomach is not well distended.Evidence of embolization adjacent to the distal stomach/duodenum. ABDOMINAL WALL: No significant hernia is appreciated. LYMPHOVASCULAR STRUCTURES AND FLUID: There is no abdominal aorticaneurysm. There is marked arterial calcification. There are no measurably enlarged lymph nodes. There is no significant freeintraperitoneal fluid. VISUALIZED LOWER CHEST: There is a [id number]-sx-hgjrbujq amount of rightpleural fluid. There may be a trace amount of left pleural fluid. Thereare bibasilar lung opacities with volume loss in the right lower lobe.There is some volume loss in the middle lobe. There is extensive coronarycalcification. There is extensive calcification of the mitral annulus.There is calcification in the region of the aortic valve. MUSCULOSKELETAL: No acute or suspicious osseous abnormality. There isopaque cement at T12. There is volume loss involving the superior endplateof L2-L3. There is degenerative change involving the spine and hips withsome sclerosis involving the right femoral head. IMPRESSION: Previous embolization. Thickened distal colonic wall may be slightlyimproved. No evidence of high-grade small bowel obstruction or abscess. Lung base opacities greater on right with some right pleural fluid. The urinary bladder is distended Cholelithiasis. -------- FINAL REPORT -------- Dictated By: Ferny Del Rosario Dictated Date: 03/20/2025 07:30 ET Assigned Physician: Ferny Del Rosario Reviewed and Electronically Signed By: Ferny Del Rosario Signed Date: 03/20/2025 07:42 ET Workstation ID: [id number] Transcribed By: Self Edit Transcribed Date: 03/20/2025 07:31 ET Benjamin ANDREWS IM CT PROCEDURES Final Result * Blood Culture, Peripheral #2 (03/20/2025 4:54 AM EDT) Only the most recent of2 resultswithin the time period is included. Culture, Blood No growth at 5 days 03/25/2025 7:01 AM EDT [facility] ([facility]) [facility] Blood Venous blood specimen / Unknown Venipuncture / Unknown 03/20/2025 4:54 AM EDT 03/20/2025 5:04 AM EDT Benjamin ANDREWS LAB MICROBIOLOGY - GENERAL ORDER KERWIN Final Result Performing Organization Address [facility]/ZIP Co de Phone Number [facility] [address] [place] [address], [place] [phone] * Thyroid stimulating hormone with reflex to free t4 and free t3 (03/20/2025 3:06 AM EDT) Pathologist [facility] TSH 1.63 0.40 - 4.00 mcIU/mL LAB CHEMISTRY METHOD 03/20/2025 11:13 AM EDT [facility] Blood Venous blood specimen / Unknown Venipuncture / Unknown 03/20/2025 3:06 AM EDT 03/20/2025 3:31 AM EDT us Filemon Hyatt MD LAB BLOOD ORDERABLES Final Res ult Performing Organization Address [facility] Co de Phone Number [facility] [address] [place] [address], [place] [phone] * Vitamin B12 and folate (03/20/2025 3:06 AM EDT) Pathologist [facility] Vitamin B-12 778 250 - 900 pcg/mL LAB CHEMISTRY METHOD 03/20/2025 12:09 PM EDT [facility] Folate 4.6 2.8 - 17.0 ng/ml LAB CHEMISTRY METHOD 03/20/2025 12:09 PM EDT [facility] Comment:Hemolysis present Blood Venous blood specimen / Unknown Venipuncture / Unknown 03/20/2025 3:06 AM EDT 03/20/2025 3:31 AM EDT Filemon Hyatt MD LAB BLOOD ORDERABLES Final Res ult Performing Organization Address [facility]/ZIP Co de Phone Number [facility] [address] [place] [address], [place] [phone] * (ABNORMAL) Iron and TIBC (03/20/2025 3:06 AM EDT) [facility] Iron 63 40 - 150 mcg/dL LAB CHEMISTRY METHOD 03/20/2025 11:48 AM EDT [facility] TIBC 503(H) 250 - 450 mcg/dL LAB CHEMISTRY METHOD 03/20/2025 11:48 AM EDT [facility] Iron Saturation 13(L) 15 - 50 % LAB CHEMISTRY METHOD 03/20/2025 11:48 AM EDT [facility] Blood Venous blood specimen / Unknown Venipuncture / Unknown 03/20/2025 3:06 AM EDT 03/20/2025 3:31 AM EDT Filemon Hyatt MD LAB BLOOD ORDERABLES Final Res ult [facility] [address] [place] [address], [place] [phone] * (ABNORMAL) Phosphorus (03/20/2025 3:06 AM EDT) [facility] Phosphorus 5.0(H) 2.5 - 4.5 mg/dL LAB CHEMISTRY METHOD 03/20/2025 5:14 AM EDT [facility] Blood Venous blood specimen / Unknown Venipuncture / Unknown 03/20/2025 3:06 AM EDT 03/20/2025 3:31 AM EDT Benjamin ANDREWS LAB BLOOD ORDERABLES Final Resul t [facility] [address] [place] [address], [place] [phone] * Parathyroid hormone intact (03/20/2025 3:06 AM EDT) [facility] PTH 54.5 18.5 - 88.0 pcg/mL LAB CHEMISTRY METHOD 03/20/2025 10:53 AM EDT [facility] Blood Venous blood specimen / Unknown Venipuncture / Unknown 03/20/2025 3:06 AM EDT 03/20/2025 3:31 AM EDT Filemon Hyatt MD LAB BLOOD ORDERABLES Final Res ult Performing Organization Address [facility]/ZIP Co de Phone Number [facility] [address] [place] [address], [place] [phone] * Ethanol (03/20/2025 3:06 AM EDT) [facility] Ethanol Level 4 0 - 10 mg/dL LAB CHEMISTRY METHOD 03/20/2025 5:14 AM EDT [facility] Blood Venous blood specimen / Unknown Venipuncture / Unknown 03/20/2025 3:06 AM EDT 03/20/2025 3:31 AM EDT Benjamin ANDREWS LAB BLOOD ORDERABLES Final Resul t Performing Organization Address [facility]/ZIP Co de Phone Number [facility] [address] [place] [address], [place] [phone] * Respiratory virus panel molecular study (03/20/2025 2:47 AM EDT) [facility] Adenovirus Detection by PCR Not Detected Not Detected LAB MICROBIOLOGY METHOD 03/20/2025 4:23 AM EDT [facility] Influenza A PCR Not Detected Not Detected LAB MICROBIOLOGY METHOD 03/20/2025 4:23 AM EDT [facility] Influenza B PCR Not Detected Not Detected LAB MICROBIOLOGY METHOD 03/20/2025 4:23 AM EDT [facility] Coronavirus 229E Not Detected Not Detected LAB MICROBIOLOGY METHOD 03/20/2025 4:23 AM EDT [facility] Coronavirus HKU1 Not Detected Not Detected LAB MICROBIOLOGY METHOD 03/20/2025 4:23 AM EDT [facility] Coronavirus OC43 Not Detected Not Detected LAB MICROBIOLOGY METHOD 03/20/2025 4:23 AM EDT [facility] Coronavirus NL63 Not Detected Not Detected LAB MICROBIOLOGY METHOD 03/20/2025 4:23 AM EDT [facility] Parainfluenza Virus 1 Not Detected Not Detected LAB MICROBIOLOGY METHOD 03/20/2025 4:23 AM EDT [facility] Parainfluenza Virus 2 Not Detected Not Detected LAB MICROBIOLOGY METHOD 03/20/2025 4:23 AM EDT [facility] Parainfluenza Virus 3 Not Detected Not Detected LAB MICROBIOLOGY METHOD 03/20/2025 4:23 AM EDT [facility] Parainfluenza Virus 4 Not Detected Not Detected LAB MICROBIOLOGY METHOD 03/20/2025 4:23 AM EDT [facility] RSV PCR Not Detected Not Detected LAB MICROBIOLOGY METHOD 03/20/2025 4:23 AM EDT [facility] Human Metapneumovirus A and B Not Detected Not Detected LAB MICROBIOLOGY METHOD 03/20/2025 4:23 AM EDT [facility] Rhinovirus/Entero virus Not Detected Not Detected LAB MICROBIOLOGY METHOD 03/20/2025 4:23 AM EDT [facility] Bordetella pertussis Not Detected Not Detected LAB MICROBIOLOGY METHOD 03/20/2025 4:23 AM EDT [facility] Bordetella parapertussis Not Detected Not Detected LAB MICROBIOLOGY METHOD 03/20/2025 4:23 AM EDT [facility] Mycoplasma pneumo by PCR Not Detected Not Detected LAB MICROBIOLOGY METHOD 03/20/2025 4:23 AM EDT [facility] Chlamydia pneumoniae Not Detected Not Detected LAB MICROBIOLOGY METHOD 03/20/2025 4:23 AM EDT [facility] SARS COV-2 Not Detected Not Detected LAB MICROBIOLOGY METHOD 03/20/2025 4:23 AM EDT [facility] Swab Both anterior nares / Unknown Non-blood Collection / Unknown 03/20/2025 2:47 AM EDT 03/20/2025 3:31 AM EDT Narrative [facility] - 03/20/2025 4:23 AM EDT Testing was performed using the DataVote Respiratory Pathogen PCR Assay. All results must be correlated with the clinical findings. Results should not be used as the sole basis for diagnosis. False Negative results may occur from the presence of sequence variants in the region targeted by the assay or the presence of inhibitors. Results may be affected by concurrent antiviral/antimicrobial therapy or levels of organisms that are below the limit of detection. us Klever Murphy MD LAB MICROBIOLOGY - [facility] Final Result Performing Organization Address [facility]/ZIP Co de Phone Number [facility] [address] [place] [address], * Occult blood stool, guaiac (03/05/2025 3:40 PM EDT) Occult Blood, Stool #1 Negative Negative 03/05/2025 5:08 PM EDT [facility] Stool Non-blood Collection / Unknown 03/05/2025 3:40 PM EDT 03/05/2025 4:00 PM EDT us Trevor Hubbard MD LAB BODY FLUIDS AND STOOLS ORDERABLES Final Result Performing Organization Address [facility]/ZIP Co de Phone Number [facility] [address] [place] [address], [place] [phone] from Last 3 Months or Most Recently Relevant to Health Maintenance Insurance [employer] MEDICARE ADVANTAGE MEDICAID - [place] Advance Directives Documents on File Type Date Recorded Patient Manager Field Services Expl anation Health Care Decision (hx) 11/08/2023 [...] AD RAMIREZ DIRECTIVE * Full Code - Default (Latest Code Status on File) Date Activated Date Inactivated Comments 03/20/2025 9:12 AM 03/27/2025 5:50 PM This is order is used when code status has not been discussed with the patient, or code status is otherwise unknown/unconfirmed To update the patient's code status, place a code status order. Do not modify or discontinue any currently active code status orders. * Full Code - Default Date Activated Date Inactivated Comments 03/05/2025 6:32 PM 03/08/2025 3:23 PM This is orde r is used when code status has not been discussed with the patient, or code status is otherwise unknown/unconfirmed To update the patient's code status, place a code status order. Do not modify or discontinue any currently active code status orders. * Full Code - Confirmed Date Activated Date Inactivated Comments 02/10/2025 6:55 PM 02/13/2025 12:41 PM This code s tatus was ascertained in the following way: Code status discussion: discussion with patient To update the patient's code status, place a code status order. Do not modify or discontinue any currently active code status orders. 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
--- OUTSIDE RECORDS SUMMARY | 2025-06-19 10:07 | XMS_ITS | Encounter Summary ---
Author Organization [facility] Address [address] [place] [address] Care Team Providers Care Application Development Team Lead Name Role Phone Fe León MD Primary Care Provider [phone] Encounter Details Date Type Department Care Team (Late st Contact Info) Description 03/28/2025 Lab Requisition [facility] [address] [facility] [address] [facility] [place] [address] Marvin Juarez MD [address] [place] [address] [address] [place], [address] Essential (primary) hypertension Social History Tobacco [...] care for your loved ones. For example, exceptional children teacher assistant or elderly care for an older adult? [...] Assessment Author No 03/20/2025 7:45 AM EDT lEla Hargrove RN * Because of a physical, [...] Ella Hargrove RN documented in this encounter Plan of Treatment Upcoming Encounters Date Type Department Care Team (Late st Contact Info) Description 07/12/2025 11:10 AM EDT Consult [facility] - [facility] [address] [facility] [address] [place] [address] German Campbell MD [address] [place] [address] [place] [address] documented as of this encounter Procedures Procedure Name Priority Date/Time Associated Diagnosis Comments COMPLETE BLOOD COUNT Routine 03/28/2025 5:24 AM EDT Essential (primary) hypertension COMPREHENSIVE METABOLIC PANEL Routine 03/28/2025 5:24 AM EDT Essential (primary) hypertension documented in this encounter Results * (ABNORMAL) Comprehensive metabolic panel (03/28/2025 5:24 AM EDT) [facility] Sodium 134 133 - 145 mmol/L LAB CHEMISTRY METHOD 03/28/2025 12:31 PM [facility] Potassium 4.7 3.5 - 5.5 mmol/L LAB CHEMISTRY METHOD 03/28/2025 12:31 PM [facility] Chloride 95(L) 96 - 110 mmol/L LAB CHEMISTRY METHOD 03/28/2025 12:31 PM [facility] CO2 32 21 - 32 mmol/L LAB CHEMISTRY METHOD 03/28/2025 12:31 PM [facility] Anion Gap 7 3 - 11 LAB CHEMISTRY METHOD 03/28/2025 12:31 PM [facility] Glucose 77 70 - 100 mg/dL LAB CHEMISTRY METHOD 03/28/2025 12:31 PM [facility] BUN 6 5 - 25 mg/dL LAB CHEMISTRY METHOD 03/28/2025 12:31 PM [facility] Creatinine 0.54 0.50 - 1.10 mg/dL LAB CHEMISTRY METHOD 03/28/2025 12:31 PM [facility] eGFR 101 >=60 mL/min/1. 73m2 LAB CHEMISTRY METHOD 03/28/2025 12:31 PM [facility] Comment:Calculation based on the Chronic Kidney Disease Epidemiology Collaboration (CKD-EPI) equation refit without adjustment for race. BUN/Creatinine Ratio 11.1 LAB CHEMISTRY METHOD 03/28/2025 12:31 PM [facility] Calcium 9.5 8.5 - 10.5 mg/dL LAB CHEMISTRY METHOD 03/28/2025 12:31 PM [facility] AST (SGOT) 25 10 - 42 unit/L LAB CHEMISTRY METHOD 03/28/2025 12:31 PM [facility] ALT (SGPT) 28 10 - 60 unit/L LAB CHEMISTRY METHOD 03/28/2025 12:31 PM [facility] Alkaline Phosphatase 113 42 - 121 unit/L LAB CHEMISTRY METHOD 03/28/2025 12:31 PM EDT [facility] Total Protein 6.0 6.0 - 8.0 g/dL LAB CHEMISTRY METHOD 03/28/2025 12:31 PM EDT [facility] Albumin 3.1(L) 3.2 - 5.0 g/dL LAB CHEMISTRY METHOD 03/28/2025 12:31 PM EDT [facility] Total Bilirubin 0.5 0.0 - 1.4 mg/dL LAB CHEMISTRY METHOD 03/28/2025 12:31 PM EDT [facility] Blood Venous blood specimen / Unknown Venipuncture / Unknown 03/28/2025 5:24 AM EDT 03/28/2025 10:08 AM EDT us Marvin Juarez MD LAB BLOOD ORDERABLES Final Resul t [facility] [address] [place] [address], * (ABNORMAL) Complete blood count (03/28/2025 5:24 AM EDT) WBC 6.2 4.8 - 10.8 K/mcL LAB HEMETOLOGY METHOD 03/28/2025 10:46 AM EDT [facility] RBC 4.00 3.80 - 4.80 M/mcL LAB HEMETOLOGY METHOD 03/28/2025 10:46 AM EDT [facility] Hemoglobin 10.3(L) 11.5 - 16.0 g/dL LAB HEMETOLOGY METHOD 03/28/2025 10:46 AM EDT [facility] Hematocrit 35.0 35.0 - 47.0 % LAB HEMETOLOGY METHOD 03/28/2025 10:[facility] MCV 87.5 79.0 - 98.0 FL LAB HEMETOLOGY METHOD 03/28/2025 10:46 AM EDT [facility] MCH 25.8(L) 27.0 - 32.0 pcg LAB HEMETOLOGY METHOD 03/28/2025 10:46 AM EDT [facility] MCHC 29.4(L) 32.0 - 37.0 g/dL LAB HEMETOLOGY METHOD 03/28/2025 10:46 AM EDT [facility] RDW 21.6(H) 11.0 - 15.0 % LAB HEMETOLOGY METHOD 03/28/2025 10:46 AM EDT [facility] Platelets 305 130 - 400 K/mcL LAB HEMETOLOGY METHOD 03/28/2025 10:46 AM EDT [facility] MPV 10.9 7.0 - 11.0 FL LAB HEMETOLOGY METHOD 03/28/2025 10:46 AM EDT [facility] NRBC 0.0 <1.0 % LAB HEMETOLOGY METHOD 03/28/2025 10:46 AM EDT [facility] NRBC Absolute 0.00 <0.10 K/mcL LAB HEMETOLOGY METHOD 03/28/2025 10:46 AM EDT [facility] Blood Venous blood specimen / Unknown Venipuncture / Unknown 03/28/2025 5:24 AM EDT 03/28/2025 10:08 AM EDT us Marvin Juarez MD LAB BLOOD ORDERABLES Final Resul t [facility] [address] [place] [address], documented in this encounter Visit Diagnoses Diagnosis Essential (primary) hypertension Unspecified essential hypertension documented in this encounter Care Teams Application Development Team Lead Relationship Specialty Start Date End Date Fe León MD [address] [place] [address] [address] [place] [address] PCP - General Internal Medicine 4/15/25 documented as of this encounter
--- OUTSIDE RECORDS SUMMARY | 2025-06-19 10:07 | XMS_ITS | Encounter Summary ---
Author Organization [facility] Address [address] [place] [address] Care Team Providers Care Order Clerk Name Role Phone Fe León MD Primary Care Provider Reason for Visit * Reason Onset Date Comments Medication Problem 06/14/2025 Nerve pain me dication? Encounter Details Date Type Department Care Team (Late st Contact Info) Description 06/14/2025 Telephone [facility] - [facility] [address] [facility] [address] [place] [address] Tricia Montague NP [address] [place] [address] [place] [address] Social History Tobacco Use Types Packs/Day Years [...] care for your loved ones. For example, summer child caregiver or elderly care for an older adult? [...] of Assessment Author No 03/20/2025 7:45 AM EDElla Borja RN * Are you blind or do you have serious difficulty seeing, even when wearing glasses? Answer Date of Assessment Author No 03/20/2025 7:45 AM EDElla Borja RN * Do you have serious difficulty walking or climbing stairs? Answer Date of Assessment Author No 03/20/2025 7:45 AM EDElla Borja RN * Do you have serious difficulty dressing or bathing? Answer Date of Assessment Author No 03/20/2025 7:45 AM Ella Beach RN * Because of a physical, mental, or emotional condition, do you have serious difficulty doing errandsalone such as visiting the doctor? Answer Date of Assessment Author No 09/30/2024 6:40 PM EST Barb Neves RN documented as of this encounter Mental Status * Because of a physical, mental, or emotional condition, do you have serious difficulty concentrating, remembering, or making decisions? (5 years old or older) Answer Entry Date Author No 03/20/2025 7:45 AM Ella Beach RN documented in this encounter Progress Notes * Amy Horowitz RN - 06/14/2025 4:17 PM EDT Spoke w/pt. Pt stated that she forgot that she contacted her Dog Hair Clipper and had it confused. All set. She was appreciative of call back. * Tricia Montague NP - 06/14/2025 4:13 PM EDT I am not sure what she is referring to but I do not prescribe nerve pain medication. She should discuss this with her PCP. * Niko Quach RN - 06/14/2025 4:07 PM EDT KATE with Ernesto Montague on 06/06/25. I do not see anything mentioned for nerve pain medication. Please advise further. * Tressa Hicks MA - 06/14/2025 3:49 PM EDT Patient called asking about her medication for her nerve pain in her feet. She said Tricia Montague was putting in a prescription. Please advise and call patient. documented in this encounter Plan of Treatment Upcoming Encounters Date Type Department Care Team (Late st Contact Info) Description 07/12/2025 11:10 AM EDT Consult [facility] - [address] [facility] [address] [place] [address] German Campbell MD [address] [place] [address] Dr [address] [place] [address] documented as of this encounter Visit Diagnoses Not on filedocumented in this encounter Care Teams Order Clerk Relationship Specialty Start Date End Date Fe León MD [address] [place] [address] PCP - General Internal Medicine 01/30/25 documented as of this encounter
--- OUTSIDE RECORDS SUMMARY | 2025-06-19 10:07 | XMS_ITS | Encounter Summary ---
Author Organization [facility] Address [address] [facility] [address] [place] [address] Phone Care Team Providers Care Bacteriologist Fishery Name Role Phone Jean Paul Arteaga MD Primary Care Provider + Reason for Referral * Consultation (Elective) - Closed Specialty Diagnoses / Procedures Referred By Contac t Referred To Contact Neurology Diagnoses Encounter for consultation System, Provider Not In, PhD [address] [address] Phone: tel: Referral ID Status Reason Start Date Expiration Date Visits Re quested Visits Authorized [id number] Closed 06/24/2017 06/24/2018 1 1 Encounter Details Date Type Department Care Team (Latest Contact Info) Description 06/24/2017 Transcribe Orders [facility] Department of Neurology [address] [facility], 8th Floor, [address] [place] [address] Romario Andino MD [address] [address] Encounter for consultation (Primary Dx) Social History Tobacco Use Types Packs/Day Years Used Date Smoking Tobacco: Never Assessed Comments Unknown Sex and Gender Information Value Date Recorded Sex Assigned at Not on file Legal Sex Female 12:50 PM EDT Gender Identity Not on file Sexual Orientation Not on file documented as of this encounter Plan of Treatment Upcoming Encounters Date Type Department Care Team (Latest Contact Info) Description 07/13/2025 1:30 PM EDT Appointment [facility], Ultrasound [address] [place] [address] Jamie Grady MD 55 [facility] [address] [place] [phone] [email or web address] 07/18/2025 11:45 AM EDT Telemedicine - audio only [facility] Neurosurgery at [facility] [address] [facility], [address] [place] [address] Jamie Grady MD [address] [place] [phone] [email or web address] Scheduled Referrals Name Type Priority Associated Diagnoses Orde r Schedule Ambulatory referral to [facility] Neurology Outpatient Referral Routine Encounter for consultation Ordered: 06/24/2017 documented as of this encounter Visit Diagnoses Diagnosis Encounter for consultation- Primary documented in this encounter Care Teams Bacteriologist Fishery Relationship Specialty Start Date End Date Jean Paul Arteaga MD [address] [facility] [place] [address] PCP - General Internal Medicine 05/25/17 documented as of this encounter Additional Source Comments The information contained in this document represents components of the legal health record. It is not the complete legal health record.[facility]
--- OUTSIDE RECORDS SUMMARY | 2025-06-19 10:07 | XMS_ITS | Encounter Summary ---
Author Organization [facility] Address [address] [place] [address] Care Team Providers Care Policy Writer Sales Name Role Phone Fe León MD Primary Care Provider [phone] Reason for Visit * Reason Onset Date Comments Medication Problem 06/08/2025 Encounter Details Date Type Department Care Team (Late st Contact Info) Description 06/08/2025 Telephone [facility] [address] [place] [address] Tricia Montague NP [address] [place] [address] Dr [address] [place] [address] Social History Tobacco Use Types [...] for your loved ones. For example, child life assistant or elderly care for an older [...] Notes * Amy Horowitz RN - 06/14/2025 4:20 PM EDT Spoke w/pt. Pt states that she will go to [facility] in [place] on 06/26/25. Pt aware to call office once blood work completed. Faxed lab req: [phone]. Confirmation received. * Jessica Moore RN - 06/12/2025 9:33 AM EDT LMOM for pt to return call and let us know what lab she will go to for repeat labs in two weeks BMP order entered into [employer] * Tricia Montague NP - 06/12/2025 9:15 AM EDT See results notes- labs stable, repeat BMP in 2 weeks. * Amy Horowitz RN - 06/12/2025 8:58 AM EDT Updated BMP scanned into system for review. * Renae Barton RN - 06/08/2025 2:01 PM EDT Spoke with patient and patient saw TRICIA 06/06/25. Per KATE states to continue both Spironolactone andpotassium supplement. Recheck labs (BMP) Wednesday. Also lasix was increased to 40 mg q a.m. and 20 mg in afternoon. Patient aware she had hx of Hypokalemia in [facility] 01/2025 and labs being followed. [facility]. * Renae Barton RN - 06/08/2025 1:40 PM EDT Returned call and LMOM req cb * Marianela Fisher - 06/08/2025 1:29 PM EDT Patient came from the [employer] Dr. Barton and she said patient should not be taking Potassium and Spirolactone at the same time. This will cause too much potasium. She would like a call back to see if the is accurate. documented in this encounter Plan of Treatment Upcoming Encounters Date Type Department Care Team (Late st Contact Info) Description 07/12/2025 11:10 AM EDT Consult [facility] - [address] [facility] [address] [place] [address] German Campbell MD [address] [place] [address] Dr [address] [place] [address] Scheduled Orders Name Type Priority Associated Diagnoses Orde r Schedule Basic metabolic panel Lab Routine Chronic diastolic heart failure ([facility] V24, [facility] V28) Paroxysmal atrial fibrillation ([facility] V24, [facility] V28) 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 ([facility] V24) 1 Occurrences starting 06/12/2025 until 06/12/2026 documented as of this encounter Visit Diagnoses Diagnosis Chronic diastolic heart failure ([facility] V24, [facility] V28)- Primary Chronic diastolic heart failure Paroxysmal atrial fibrillation ([facility] V24, [facility] V28) Atrial fibrillation 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
--- OUTSIDE RECORDS SUMMARY | 2025-06-19 10:07 | XMS_ITS | Clinical Summary ---
Author Organization [facility] Address [address] [place] [address] Phone Care Team Providers Care As400 Administrator Name Role Phone Jean Paul Arteaga MD Primary Care Provider + Allergies No known active allergies Medications oxygen permeable blind cleaner Liqd by Miscellaneous route. 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); Paresthesias in left hand 06/05/2025 Orders Only [facility] Neurosurgery [address] [facility], 7th Floor, [address] [place] [address] Brianna Vazquez MA Left hand pain (Primary Dx) 05/22/2025 9:30 AM EDT Office Visit [facility] Neurosurgery at [facility] [address] [facility], [address] [place] [address] Jamie Grady MD Left hand pain (Primary Dx) from Last 3 Months Social History Tobacco Use Types Packs/Day Years [...] Info) Description 07/13/2025 1:30 PM EDT Appointment [facility], Ultrasound [address] [place] [address] Jamie Grady MD [address] [facility] [address] [place] [phone] [email or web address] 07/18/2025 11:45 AM EDT Telemedicine - audio only [facility] Neurosurgery at [facility] [address] [facility], [address] [place] [address] Jamie Grady MD [address] [place] [phone] [email or web address] Health Maintenance Due Date Last Done [...] 2007 OSTEOPOROSIS SCREENING INITI AL (ONE-TIME) 2022 INFLUENZA VACCINE (#1) 2025 COVID-19 VACCINE (1 - 2023-2 5 season) 2025 COLORECTAL CANCER SCREENING 03/05/2026 FOBT 03/05/2026 03/05/2025 [...] file Insurance MEDICARE PART A & B [employer] O MEDICARE REPLACEMENT [facility] MEDICARE PART A & B A[employer] PPO MEDICARE RE[place] MEDICARE PART A & B [place] PPO MEDICARE RE[place] MED[place] PART A & B [facility] & B [facility] MEDICARE REPLACEMENT [facility] MEDICARE PART A & [facility] MEDICARE PART A & B [employer] O MEDICARE REPLACEMENT [facility] Care Teams As400 Administrator Relationship Specialty Start Date End Date Jean Paul Arteaga MD [address] [facility] [place] [address] PCP - General Internal Medicine 05/25/17 Additional Source Comments The information contained in this document represents components of the legal health record. It is not the complete legal health record.[facility]
== END 2025-06-19 10:29 | disposition home or self-care (01) ==
LOC: HO.HKAS 09:14
PROVIDERS: PCP Internal Medicine; Visit Provider Internal Medicine Nephrology
DX: I70.1 Atherosclerosis of renal artery (principal); I15.0 Renovascular hypertension
CPT/HCPCS: 99214

== ENCOUNTER → 2025-06-19 09:13 | Outpatient (BNVA) | payer MEDICARE, MEDICAID, SELFPAY | PROVIDERS: PCP Internal Medicine; Visit Provider Internal Medicine Nephrology | DX: I15.0 Renovascular hypertension (principal); I70.1 Atherosclerosis of renal artery | CPT/HCPCS: 99212 ==

== ENCOUNTER 2025-06-22 09:08 | Outpatient (AMB) | payer MEDICARE, MEDICAID, SELFPAY ==
[2025-06-22 09:10] VITALS: BP 118/64; PULSE 138; O2SAT 96; BMI 26.4
--- NOTE | 2025-06-22 09:10 | MHC.OFFVIS ---
Vital Signs 06/22/25 09:10 Height 5 ft 3 in Weight 148 lb 12.992 oz BMI 26.4 BP 118/64 Blood Pressure Location Lt brachial Position Sitting Pulse 138 H Pulse Source Pulse Oximeter Pulse Oximetry (%) 96 Oxygen Delivery Method Nasal Cannula Oxygen Flow Rate 2 Intake Visit Reasons: COPD Evidence Specialist Required: No Accompanied by: Self / Same As Patient Allergies levofloxacin (Levaquin) Allergy (Severe, Verified 06/22/25 09:15) vomiting HPI Comments Details: Patient is 70 y/o woman with a history of COPD O2 dependent in addition to all cystic fibrosis carrier. She has been using the oxygen with good effect. On room air at rest she is down to 87%. When she wears the oxygen at 2 L pulse increases to 94%. She continues to have issues with wheezing and shortness of breath mainly in the morning. She does use her Anoro daily. She felt better when she uses Trelegy in the past. She does not like to use steroids but they seem to help her wheezing specially that in the morning. Therefore, I will switch her back to trelegy as she failed Anoro. She continues uses CPAP with CPAP therapy continues to be affecting beneficial. She uses a nasal pillow mask and it works well. She uses the CPAP more than 4 hours a night. The major issue is that the patient needs increased portability with oxygen. A portable tanks are not providing with enough portability in order for her to do her activities outside of the home. She cannot carry multiple attacks of significant arthritic disease due to the fact that she does have marked arthritis. She continues to have issues with wheezing and shortness of breath mainly in the morning. She does use her Anoro daily. She felt better when she uses Trelegy in the past. She does not like to use steroids but they seem to help her wheezing specially that in the morning. Therefore, I will switch her back to trelegy as she failed Anoro. She continues uses CPAP with CPAP therapy continues to be affecting beneficial. She uses a nasal pillow mask and it works well. She uses the CPAP more than 4 hours a night. The major issue is that the patient needs increased portability with oxygen. A portable tanks are not providing with enough portability in order for her to do her activities outside of the home. She cannot carry multiple attacks of significant arthritic disease due to the fact that she does have marked arthritis. Therefore, the patient needs to get a portable oxygen concentrator through [facility] [place]. We will submit the proper paperwork in start the process for her to be able to get a battery operated portable oxygen concentrator. 01/15/2023 the patient is here for pulmonary follow-up visit. Overall she doing relatively well from a respiratory status. She does have chest congestion and nasal congestion in the morning after using her CPAP. But otherwise clears up after that. She does have the oxygen that she can use with activity. She also uses the oxygen at nighttime with her CPAP. Her CPAP therapy continues to be affecting beneficial and she does use it for more than 4 hours a night. She was wondering about the hypoglossal nerve stimulator. I advised her against considering that option in the meantime the patient has been using her respiratory therapy with good effect. Recently she had blood work including her IgG levels that were found to be low and also a CBC with evidence of microcytosis. The patient has had history of B12 deficiency in the past. Therefore, she is going to go back to using multivitamins with B complex and will have repeat blood work in a couple months. Hopefully her IgG levels improved and her MCV also improves. Patient also may benefit from a hematological evaluation. She continues use the Trelegy inhaler with good effect. No need for prednisone at this time which is reassuring. 07/15/2023 the patient is here for hospital follow-up visit. The patient recently was hospitalized at [facility] for shoulder surgery. The surgery went well but apparently after she was having issues with respiratory distress. There was suspicion of aspiration pneumonitis. The patient did have to use oxygen. She was also kept in the hospital given antibiotics and also I respiratory therapy treatments. The patient also had a CT scan of the chest demonstrating some new pulmonary nodules that will need follow-up. She continues to struggle with her breathing. Still requiring between 2-3 L with activity. Prior to that she was is using her oxygen at nighttime with her PAP therapy. We did go for brief walking oximetry in the patient did desaturate very quickly at rest and did make up to 3 L with activity. She has a hard time caring the oxygen tanks because her shoulder surgery. I did ask for small trial E for her to get from her [employer] in order for her to be able to carry her oxygen. Will plan to start her on prednisone and also get an x-ray prior to the next visit. She should follow-up in 3-4 weeks. 08/05/2023 the patient is here for a pulmonary follow-up visit. The patient is feeling a little better. She still has significant pain from her shoulder surgery. She has been using her oxygen. The oxygen therapy has been affecting beneficial. Although is very difficult for her to carry the oxygen outside of the home because of her shoulder. For the most part she stays in her house. She still desaturates and she still needs to continues use her oxygen. She did undergo a repeat chest x-ray which I did review with her and we compared to her chest x-rays from [facility]. There is interval improvement in the bibasilar opacities which is reassuring. Also to note the patient was admitted to the hospital again at [facility] with atrial fibrillation with RVR. This is new onset AFib for her. She was seen by Cardiology. She was initially placed on Eliquis and also amiodarone. The dose of amiodarone has subsequently decreased. No evidence of any worsening shortness of breath which is reassuring. 12/07/2023 the patient has a telehealth visit today. Apparently she was sick with RSV back in October where she spent several weeks in the hospital. She did require ICU level of care. She was not high-flow. She was then transferred to an acute rehab most likely because of ongoing respiratory failure. The patient there spent about another 2-3 weeks. Subsequently after that she was discharged home on some prednisone she just finished the last week. She started developing dizziness, nausea vomiting, malaise. She feels very sleepy. Denies any worsening of the breathing although she is short of breath with activity. She has been using her oxygen with good effect. Will go ahead and give her some Zofran for her nausea and vomiting will start her back on 20 mg of prednisone for this suspicion of adrenal insufficiency secondary to her multiple wakes up prednisone likely high dose. The patient will start on the 20 mg twice a day for the 1st day then 20 mg daily. Once she feels better she needs to come in for blood work including a venous gas to make sure that his CO2 is within the normal ranges. If the patient worsens she knows she needs to go to the ER in view of her significant comorbidities. 12/13/2023 the patient has a follow-up visit today. We had a telehealth visit just last week. The patient was having significant adverse effects from withdrawal from prednisone. Likely developing secondary adrenal insufficiency. the patient did start prednisone she quickly start feeling better. She is up to 20 mg daily. She also underwent blood work demonstrating a critically low potassium of 2.8 which we repleted with oral supplement. In addition to that the patient was noted to be anemic with hemoglobin down to 8.8. We did repeat her blood work today appears that her potassium is back to normal and her hemoglobin is a little better up to 9. therefore it is reassuring. The patient has been using her oxygen with good effect. In addition to that the patient has been hypomanic. She is here with her sister. She is acting strangely and not keeping her boundaries. Explained to the sister that is likely all the prednisone. Will going to quickly try to decrease it down to 10 mg daily. She can continue on that dose. When she follows up in the coming weeks we can work on decreasing her prednisone further. In the meantime she would benefit from an endocrinology evaluation for adrenal insufficiency. I will make a referral at this time. 02/28/2024 the patient is here for a pulmonary follow-up visit. She is still struggling with the prednisone. She has been able to cut down slowly down to 7 mg. She does have an appointment with endocrinology to assess her for adrenal insufficiency. The patient would like to come off though she knows she does not feel good when she comes off completely. The patient will continue to cut down by 1 mg every 2 weeks. I did send her enough medications to the pharmacy and she should have an appointment with endocrinology soon. The patient is also having hard time caring the oxygen tanks. She has significant facilities and difficulty walking therefore using the oxygen tanks are very difficult. I did do a 6 minute walk test the patient did great. She did require oxygen at 3 L pulse with activity. Even at rest the patient does desaturate down to 88% and therefore she should continue with 2 L pulse at rest or 2 L continuous at home. Will submit a new prescription for portable oxygen concentrator to improve the portability the patient. 04/25/2024 the patient is here for pulmonary follow-up visit. Overall the patient is feeling little better. She was weaned off the prednisone completely. Subsequently after that the patient started developing worsening abdominal discomfort causing to have difficulty breathing. She went to the [facility]. She is noted to have significant lower extremity edema with weeping of her legs. She has been on Lasix. No evidence of any cellulitis although she is high risk. She did have a bedside echo although very limited. She will see her mix house tender soon and should have a repeat echocardiogram soon. Indeed she may have a component of cor pulmonale with significant lower extremity edema. She will need additional diuresis at this time. She has issues with the kidneys and therefore needs to be careful with diuresis. But her kidney function was normal the last time those checked. Therefore, will place her on additional Lasix if the patient will have blood work again. She will have her cortisol level rechecked. She also got her portable oxygen concentrator. This has been affecting beneficial. Is given her better portability outside the home. While in the home she does use her concentrator because she does get more from the continues oxygen. 06/27/2024 the patient is here for a pulmonary follow-up visit. Overall she is doing well. The patient continues use the oxygen regularly. She is wondering if she can come off. I do believe that from a respiratory status she is doing better on current therapy. The patient is responding well to the Trelegy. She has been off the prednisone which is reassuring. She will be following up with endocrinology soon. In the meantime the patient will benefit from pulmonary rehabilitation. Will go ahead and request pulmonary function studies and start pulmonary rehabilitation at [facility]. The patient prefers therapy was closer to home. 09/08/2024 the patient is here for a pulmonary follow-up visit. Overall she is doing better overall. Her oxygen still drops with activity. Although we did a brief walking oximetry and with deep breathing she actually was able to maintain a pulse ox a lot better. Therefore she needs to continue using her portable oxygen concentrator with activity. I did recommend that she can work on deep breathing especially when she is sitting and she can be on room air. The patient also has been using her respiratory inhalers as prescribed. She has been struggling with her sleep. She is using melatonin but she is still not able to sleep because her significant neuropathic discomfort. Therefore she stopped the trazodone because it was not helping was causing her vivid dreams and she could not tolerate the adverse effects. Will try small dose of Ambien at this time. We did review her pulmonary function studies. They appeared to show a moderate degree of COPD and also mild restriction. But his diffusing capacity is adequate. Therefore, I did encourage her to try to work on her deep breathing exercises. 02/01/2025 the patient is here for a pulmonary follow-up visit. She has had a very extensive history since her last time she was here. She was admitted to the hospital with a fracture shoulder. She needs to have surgery. Afterwards she developed significant weakness and neuropathy of that arm suggesting a brachial plexus neuropathy. She is looking to get a referral to [place] [place] to have this looked at. In the meantime she has had a lot of weight loss from her multiple hospitalizations and rehabilitation. She continues on the oxygen with good effect. She does have a POC that she uses a good portability outside of the home. In addition to that she continues uses CPAP every night. CPAP therapy has been affecting beneficial and she does use it for more than 4 hours a night. She will continue with the current respiratory therapy. Will follow-up sometime in 6-8 months. If she has any issues prior to that she will call for an earlier assessment. For now will continue the current respiratory regimen as is. 06/22/2025 the patient is here for pulmonary follow-up visit. She has been complaining of a cough. The cough is typically nonproductive in nature. [id number] severity. Prior to the cough she was complaining of a sore throat. Has not taking any medications for. Seems like her throat is red significant pharyngitis and also postnasal drip likely a component of sinusitis. Recently she was hospitalized at [facility]. She has actually been hospitalized a few times. She has had issues with falls. Initially she fell and hurt her left shoulder requiring surgical intervention. And then ultimately after that she had another fall where she had other injuries. Now she is working with reconstructive surgery because she has minimal use of the left hand. Very debilitating. From a pulmonary standpoint she continues to have shortness of breath. Now she seems to be oxygen dependent 24 hours a day. She does use a POC. She did take it off briefly and she did quickly desaturate down to the 80s. She did well on 3 L pulse. She does use a walker with good response. As far as imaging studies she has had multiple imaging studies at [facility] where she typically goes for hospitalizations and evaluations. Therefore will request a release of medical records to look at her imaging studies. She continues use her respiratory therapy with good effect. She also continues her CPAP at nighttime with oxygen also with good effect. The therapy has been affecting beneficial. We will follow-up with the patient and a couple months in the meantime will request all the records from [facility]. [facility] Medical History Afib Lower extremity edema Adrenal insufficiency RSV (respiratory syncytial virus infection) Atelectasis Hypercalciuria Hypogammaglobulinemia Vasomotor rhinitis Osteoporosis GERD (gastroesophageal reflux disease) HLD (hyperlipidemia) HTN (hypertension) History of CVA (cerebrovascular accident) Chronic cough Seropositive rheumatoid arthritis Chronic rheumatic arthritis Chronic respiratory failure COPD (chronic obstructive pulmonary disease) case management patient Cystic fibrosis carrier Surgical History Hx of shoulder surgery History of surgery Family History Son Cystic fibrosis Social History Household Members: None Alcohol intake: current Alcohol intake frequency: holidays/special occasions only Patient Tobacco Use Status: Former Tobacco user Tobacco use type: Cigarette Cigarettes Per Day: 10 Years Smoked: 20 e-Cigarette/Vaping Use: Never Used Review of Systems Const Reports difficulty sleeping, Denies frequent falls, Reports headache(s), Denies lethargy, Denies malaise, Reports weakness and Reports weight loss ENT Denies change in voice, Reports dizziness, Reports headache(s), Denies mouth pain, Reports nasal congestion, Reports nasal discharge, Reports disequilibrium, Reports post nasal drip and Denies tongue swelling Card Denies chest pain, Reports leg edema and Reports dyspnea on exertion Resp Reports cough, Reports dyspnea on exertion and Reports wheezing GI Reports nausea and Reports vomiting Musc Reports as per HPI, Reports abnormal gait, Reports arthralgias, Reports joint swelling and Reports limited range of motion Skin/Breast Denies rash Neuro Reports abnormal gait, Reports dizziness, Denies frequent falls, Reports headache(s), Reports radicular pain, Reports disequilibrium and Reports weakness Psych Denies no additional complaints Sergey/Lymph Denies easy bleeding and Denies lymphadenopathy Aller/Immun Denies tongue swelling and Reports wheezing Physical Exam Vital Signs: Last Vital Signs Pulse 138 H 06/22/25 09:10 BP 118/64 06/22/25 09:10 Pulse Ox 96 06/22/25 09:10 Oxygen Delivery Method Nasal Cannula 06/22/25 09:10 Oxygen Flow Rate 2 06/22/25 09:10 BMI result Body Mass Index 26.4 Const General: comfortable and alert HEENT Head: Yes atraumatic General nose exam: Abnormal external nose present and Nasal discharge present Eyes Pupils: Equal, round and reactive pupils present Neck Neck: Yes normal visual inspection, Yes full ROM and Yes no lymphadenopathy Chest Chest palpation & inspection: normal inspection of the chest Resp Effort & Inspection: normal respiratory effort Auscultation: no wheezes and diminished lung sounds Cardio Rate: regular rate Rhythm: regular rhythm Heart sounds: S1 normal heart sound present and S2 normal heart sound present GI Palpation (GI): Soft to palpation and nontender Auscultation: normal bowel sounds General: Yes no CVA tenderness Back/Spine/Pelvis Back: no CVA tenderness Skin General skin exam: rashes and/or lesions noted Neuro Cranial nerves: Yes Equal, round and reactive pupils present Extrem General: No clubbing, No cyanosis and Yes edema Assessment & Plan Assessment & Plan (1) Chronic respiratory failure: Code(s): J96.10 - Chronic respiratory failure, unspecified whether with hypoxia or hypercapnia Category: Medical Qualifiers: Respiratory failure complication: hypoxia Qualified Code(s): J96.11 - Chronic respiratory failure with hypoxia (2) COPD (chronic obstructive pulmonary disease) case management patient: Code(s): J44.9 - Chronic obstructive pulmonary disease, unspecified Category: Medical (3) Cystic fibrosis carrier: Code(s): Z14.1 - Cystic fibrosis carrier Category: Medical (4) Chronic cough: Code(s): R05.3 - Chronic cough Category: Medical (5) Vasomotor rhinitis: Code(s): J30.0 - Vasomotor rhinitis Category: Medical (6) Hypogammaglobulinemia: Code(s): D80.1 - Nonfamilial hypogammaglobulinemia Category: Medical (7) Atelectasis: Comment: better Code(s): J98.11 - Atelectasis Category: Medical (8) Adrenal insufficiency: Comment: better Code(s): E27.40 - Unspecified adrenocortical insufficiency Category: Medical (9) Anemia: Code(s): D64.9 - Anemia, unspecified Category: Medical Qualifiers: Anemia type: unspecified type Qualified Code(s): D64.9 - Anemia, unspecified Plan start Doxycycline cough medicine continue Fluticasone nasal spray continue Trelegy daily JANNETH as needed oxygen 2L/pulse at rest, 3L/pulse with activity. Now with POC. 24/7 ipratropium nasal spray Continue CPAP at night with O2 diuresis as tolerated F/U 3 months Medications: New doxycycline hyclate 100 mg PO BID 20 caps 0RF 10 days codeine-guaifenesin 10-100 mg/5 mL 10 mL PO Q6H PRN 300 mL 0RF cough 10 days fluticasone propionate 50 mcg/actuation 2 sprays intranasal DAILY 15.8 mL 11RF 30 days J31.0 - Chronic rhinitis Coding Level of Care Code Est Pt Level 4 (40922) Complex EM visit Add On G2211 Diagnoses Chronic respiratory failure with hypoxia J96.11 Respiratory failure complication: hypoxia COPD (chronic obstructive pulmonary disease) case management patient J44.9 Cystic fibrosis carrier Z14.1 Chronic cough R05.3 Vasomotor rhinitis J30.0 Hypogammaglobulinemia D80.1 Atelectasis J98.11 Adrenal insufficiency E27.40 Anemia, unspecified type D64.9 Anemia type: unspecified type Time Spent (min) 18
--- OUTSIDE RECORDS SUMMARY | 2025-06-22 09:56 | XMS_ITS | Encounter Summary ---
Author Organization [facility] Address [address] [place] [address] Care Team Providers Care Motors And Generators Inspector Name Role Phone Fe León MD Primary Care Provider Encounter Details Date Type Department Care Team (Late st Contact Info) Description 11/18/2024 Lab Requisition [facility] - Main Lab [address] [place] [address] Dayanara Barber MD [address] [id number] Unspecified atrial fibrillation (CMS/HCC V24, CMS/HCC V28) [...] for your loved ones. For example, child day care provider or elderly care for an older adult? [...] Info) Description 07/12/2025 11:10 AM EDT Consult [facility] - [address] [facility] [address] [place] [phone] German Campbell MD [address] [place] [address] [place] [address] documented as of this encounter Visit Diagnoses [...] documented as of this encounter Care Teams Motors And Generators Inspector Relationship Specialty Start Date End Date Fe León MD [address] [facility] [address] [place] [address] PCP - General Internal Medicine 01/30/25 documented as of this encounter
--- OUTSIDE RECORDS SUMMARY | 2025-06-22 09:56 | XMS_ITS | Encounter Summary ---
Author Organization [facility] Address [address] [place] [address] Phone Care Team Providers Care Dental Specialist Name Role Phone Jean Paul Arteaga MD Primary Care Provider + Encounter Details Date Type Department Care Team (Late st Contact Info) Description 06/05/2025 Orders Only [facility] Neurosurgery [address] [facility], 7th Floor, [address] [place] [address] [address] [place], [place] [address] [place] [address] [email or web address] Left hand pain (Primary Dx) Social History [...] Info) Description 07/13/2025 1:30 PM EDT Appointment [facility], Ultrasound [address] [place] [address] Jamie Grady MD [address] [place] [address] [address] [place] [address] [email or web address] 07/18/2025 11:45 AM EDT Telemedicine - audio only [facility] Neurosurgery at [facility] [address] [facility], [address] [place] [address] Jamie Grady MD [address] [place] [address] [address] [place] [address] [email or web address] Scheduled Orders Name Type Priority Associated Diagnoses Orde r Schedule US Upper Extremity Non-Vascular (Left) Imaging Routine Left hand pain Expected: 06/05/2025, Expires: 09/05/2025 documented as of this encounter Visit Diagnoses Diagnosis Left hand pain- Primary Pain in soft tissues of limb documented in this encounter Care Teams Dental Specialist Relationship Specialty Start Date End Date Jean Paul Arteaga MD [address] [facility] [place] [address] PCP - General Internal Medicine 05/25/17 documented as of this encounter Additional Source Comments The information contained in this document represents components of the legal health record. It is not the complete legal health record.[facility]
--- OUTSIDE RECORDS SUMMARY | 2025-06-22 09:56 | XMS_ITS | Encounter Summary ---
Author Organization [facility] Address [address] [place] [address] Care Team Providers Care Director Housekeeping Name Role Phone Fe León MD Primary Care Provider [phone] Encounter Details Date Type Department Care Team (Late st Contact Info) Description 01/14/2025 Lab Requisition [facility] - Main Lab [address] [facility] [address] [facility] [place] [address] Ashley Gonzáles MD [address] [place] [address] Essential (primary) hypertension Social History Tobacco Use [...] loved ones. For example, child and family therapist or elderly care for an older adult? [...] 07/12/2025 11:10 AM EDT Consult [facility] - [facility] [address] 300 [facility] 154 [place] [phone] German Campbell MD [address] [place] [address] [place] [address] documented as of this encounter Procedures Procedure Name Priority Date/Time Associated Diagnosis Comments COMPLETE BLOOD COUNT Routine 01/15/2025 6:38 AM EDT Essential (primary) hypertension BASIC METABOLIC PANEL Routine 01/15/2025 6:38 AM EDT Essential (primary) hypertension documented in this encounter Results * Basic metabolic panel (01/15/2025 6:38 AM EDT) Sodium 140 133 - 145 mmol/L LAB CHEMISTRY METHOD 01/15/2025 10:31 AM [facility] Potassium 3.8 3.5 - 5.5 mmol/L LAB CHEMISTRY METHOD 01/15/2025 10:31 AM [facility] Chloride 104 96 - 110 mmol/L LAB CHEMISTRY METHOD 01/15/2025 10:31 AM [facility] CO2 31 21 - 32 mmol/L LAB CHEMISTRY METHOD 01/15/2025 10:31 AM [facility] Anion Gap 5 3 - 11 LAB CHEMISTRY METHOD 01/15/2025 10:31 AM [facility] Glucose 90 70 - 100 mg/dL LAB CHEMISTRY METHOD 01/15/2025 10:31 AM [facility] BUN 10 5 - 25 mg/dL LAB CHEMISTRY METHOD 01/15/2025 10:31 AM [facility] Creatinine 0.52 0.50 - 1.10 mg/dL LAB CHEMISTRY METHOD 01/15/2025 10:31 AM [facility] eGFR 102 >=60 mL/min/1. 73m2 LAB CHEMISTRY METHOD 01/15/2025 10:31 AM [facility] Comment:Calculation based on the Chronic Kidney Disease Epidemiology Collaboration (CKD-EPI) equation refit without adjustment for race. BUN/Creatinine Ratio 19.2 LAB CHEMISTRY METHOD 01/15/2025 10:31 AM [facility] Calcium 9.3 8.5 - 10.5 mg/dL LAB CHEMISTRY METHOD 01/15/2025 10:31 AM [facility] Blood Venous blood specimen / Unknown Venipuncture / Unknown 01/15/2025 6:38 AM EDT 01/15/2025 9:37 AM EDT us Ashley Gonzáles MD LAB BLOOD ORDERABLES Final Resul t [facility] [address] [place] [address], * (ABNORMAL) Complete blood count (01/15/2025 6:38 AM EDT) [facility] Signature WBC 5.5 4.8 - 10.8 K/mcL LAB HEMETOLOGY METHOD 01/15/2025 10:36 AM EDT [facility] RBC 2.90(L) 3.80 - 4.80 M/mcL LAB HEMETOLOGY METHOD 01/15/2025 10:36 AM EDT [facility] Hemoglobin 8.9(L) 11.5 - 16.0 g/dL LAB HEMETOLOGY METHOD 01/15/2025 10:36 AM EDT [facility] Hematocrit 28.4(L) 35.0 - 47.0 % LAB HEMETOLOGY METHOD 01/15/2025 10:36 AM EDT [facility] MCV 99.0(H) 79.0 - 98.0 FL LAB HEMETOLOGY METHOD 01/15/2025 10:36 AM EDT [facility] LAB MCH 31.0 27.0 - 32.0 pcg LAB HEMETOLOGY METHOD 01/15/2025 10:36 AM EDT [facility] LAB MCHC 31.3(L) 32.0 - 37.0 g/dL LAB HEMETOLOGY METHOD 01/15/2025 10:36 AM EDT [facility] RDW 13.5 11.0 - 15.0 % LAB HEMETOLOGY METHOD 01/15/2025 10:36 AM EDT [facility] LAB Platelets 243 130 - 400 K/mcL LAB HEMETOLOGY METHOD 01/15/2025 10:36 AM EDT [facility] MPV 11.7(H) 7.0 - 11.0 FL LAB HEMETOLOGY METHOD 01/15/2025 10:36 AM EDT [facility] NRBC 0.0 <1.0 % LAB HEMETOLOGY METHOD 01/15/2025 10:36 AM EDT [facility] NRBC Absolute 0.00 <0.10 K/mcL LAB HEMETOLOGY METHOD 01/15/2025 10:36 AM EDT [facility] Blood Venous blood specimen / Unknown Venipuncture / Unknown 01/15/2025 6:38 AM EDT 01/15/2025 9:33 AM EDT us Ashley Gonzáles MD LAB BLOOD ORDERABLES Final Resul t [facility] [address] [place] [address], documented in this encounter Visit Diagnoses Diagnosis [...] documented as of this encounter Care Teams Director Housekeeping Relationship Specialty Start Date End Date Fe León MD [address] [address] PCP - General Internal Medicine 01/30/25 documented as of this encounter
--- OUTSIDE RECORDS SUMMARY | 2025-06-22 09:56 | XMS_ITS | Encounter Summary ---
Author Organization [facility] Address [address] [place] [address] Care Team Providers Care It Risk And Assurance Senior Manager Name Role Phone Fe León MD Primary Care Provider [phone] Encounter Details Date Type Department Care Team (Late st Contact Info) Description 01/20/2025 Lab Requisition [facility] - Main Lab [address] [facility] [place] [address] Ashley Gonzáles MD [address] [place] [address] Essential (primary) hypertension Social History Tobacco Use [...] your loved ones. For example, early childhood teacher assistant or elderly care for an [...] Info) Description 07/12/2025 11:10 AM EDT Consult [facility] - [facility] [address] 300 [facility] 154 [place] [phone] German Campbell MD [address] [place] [address] [place] [address] documented as of this encounter Visit Diagnoses [...] documented as of this encounter Care Teams It Risk And Assurance Senior Manager Relationship Specialty Start Date End Date Fe León MD 75 [facility] 1 [place] [address] PCP - General Internal Medicine 01/30/25 documented as of this encounter
--- OUTSIDE RECORDS SUMMARY | 2025-06-22 09:56 | XMS_ITS | Encounter Summary ---
Author Organization [facility] Address [address] [place] [address] Care Team Providers Care Splicing Machine Operator Name Role Phone Fe León MD Primary Care Provider Encounter Details Date Type Department Care Team (Late st Contact Info) Description 11/07/2024 Lab Requisition [facility] - Main Lab [address] [facility] [address] [place] [address] Dayanara Barber MD [address] [phone] Unspecified atrial fibrillation (CMS/HCC V24, CMS/HCC V28) [...] Info) Description 07/12/2025 11:10 AM EDT Consult [facility] Associates - [address] 300 [facility] 154 [place] [phone] Geramn Campbell MD [address] [place] [address] [place] [address] documented as of this encounter Procedures Procedure Name Priority Date/Time Associated Diagnosis Comments COMPLETE BLOOD COUNT Routine 11/07/2024 5:40 AM EST Unspecified atrial fibrillation (CMS/HCC) BASIC METABOLIC PANEL Routine 11/07/2024 5:40 AM EST Unspecified atrial fibrillation (CMS/HCC) documented in this encounter Results * (ABNORMAL) Basic metabolic panel (11/07/2024 5:40 AM EST) Sodium 139 133 - 145 mmol/L LAB CHEMISTRY METHOD 11/07/2024 10:54 AM [facility] Potassium 4.2 3.5 - 5.5 mmol/L LAB CHEMISTRY METHOD 11/07/2024 10:54 AM [facility] Chloride 100 96 - 110 mmol/L LAB CHEMISTRY METHOD 11/07/2024 10:54 AM [facility] CO2 37(H) 21 - 32 mmol/L LAB CHEMISTRY METHOD 11/07/2024 10:54 AM [facility] Anion Gap 2(L) 3 - 11 LAB CHEMISTRY METHOD 11/07/2024 10:54 AM [facility] Glucose 92 70 - 100 mg/dL LAB CHEMISTRY METHOD 11/07/2024 10:54 AM [facility] BUN 7 5 - 25 mg/dL LAB CHEMISTRY METHOD 11/07/2024 10:54 AM [facility] Creatinine 0.40(L) 0.50 - 1.10 mg/dL LAB CHEMISTRY METHOD 11/07/2024 10:54 AM [facility] eGFR 109 >=60 mL/min/1. 73m2 LAB CHEMISTRY METHOD 11/07/2024 10:54 AM [facility] Comment:Calculation based on the Chronic Kidney Disease Epidemiology Collaboration (CKD-EPI) equation refit without adjustment for race. BUN/Creatinine Ratio 17.5 LAB CHEMISTRY METHOD 11/07/2024 10:54 AM [facility] Calcium 9.2 8.5 - 10.5 mg/dL LAB CHEMISTRY METHOD 11/07/2024 10:54 AM [facility] Blood Venous blood specimen / Unknown Venipuncture / Unknown 11/07/2024 5:40 AM EST 11/07/2024 9:25 AM EST us Dayanara Barber MD LAB BLOOD ORDERABLES Fin al Result [facility] [address] [place] [address], * (ABNORMAL) Complete blood count (11/07/2024 5:40 AM EST) [facility] Signature WBC 7.0 4.8 - 10.8 K/mcL LAB HEMETOLOGY METHOD 11/07/2024 10:25 AM EST [facility] RBC 2.60(L) 3.80 - 4.80 M/mcL LAB HEMETOLOGY METHOD 11/07/2024 10:25 AM [facility] Hemoglobin 8.2(L) 11.5 - 16.0 g/dL LAB HEMETOLOGY METHOD 11/07/2024 10:25 AM [facility] Hematocrit 26.1(L) 35.0 - 47.0 % LAB HEMETOLOGY METHOD 11/07/2024 10:25 AM EST [facility] MCV 99.2(H) 79.0 - 98.0 FL LAB HEMETOLOGY METHOD 11/07/2024 10:25 AM [facility] MCH 31.2 27.0 - 32.0 pcg LAB HEMETOLOGY METHOD 11/07/2024 10:25 AM [facility] MCHC 31.4(L) 32.0 - 37.0 g/dL LAB HEMETOLOGY METHOD 11/07/2024 10:25 AM [facility] RDW 15.9(H) 11.0 - 15.0 % LAB HEMETOLOGY METHOD 11/07/2024 10:25 AM [facility] Platelets 293 130 - 400 K/mcL LAB HEMETOLOGY METHOD 11/07/2024 10:25 AM [facility] MPV 11.7(H) 7.0 - 11.0 FL LAB HEMETOLOGY METHOD 11/07/2024 10:25 AM EST [facility] NRBC 0.0 <1.0 % LAB HEMETOLOGY METHOD 11/07/2024 10:25 AM EST [facility] NRBC Absolute 0.00 <0.10 K/mcL LAB HEMETOLOGY METHOD 11/07/2024 10:25 AM EST [facility] Blood Venous blood specimen / Unknown Venipuncture / Unknown 11/07/2024 5:40 AM EST 11/07/2024 9:25 AM EST us Dayanara Barber MD LAB BLOOD ORDERABLES Fin al Result [facility] [address] [place] [address], documented in this encounter Visit Diagnoses Diagnosis [...] documented as of this encounter Care Teams Splicing Machine Operator Relationship Specialty Start Date End Date Fe León MD 75 [facility] 1 [place] [address] PCP - General Internal Medicine 01/30/25 documented as of this encounter
--- OUTSIDE RECORDS SUMMARY | 2025-06-22 09:56 | XMS_ITS | Clinical Summary ---
Author Organization [facility] Address [address] [facility] 20 0 [place] [address] Phone Care Team Providers Care Washer Blanket Name Role Phone Fe León MD Primary Care Provider [phone] Allergies Active Allergy Reactions Criticality Noted Date [...] Medicaid [place] Care Teams Washer Blanket Relationship Specialty Start Date End Date Fe León MD [address] [place] [address] [place] [address] PCP - General Internal Medicine 03/31/21
--- OUTSIDE RECORDS SUMMARY | 2025-06-22 09:56 | XMS_ITS | Encounter Summary ---
Author Organization [facility] Address [address] [place] [address] Care Team Providers Care Prom Burn Off Operator Name Role Phone Fe León MD Primary Care Provider Encounter Details Date Type Department Care Team (Late st Contact Info) Description 11/11/2024 Lab Requisition [facility] - Main Lab [address] [facility] [place] [address] Dayanara Barber MD [address] [phone] Unspecified atrial fibrillation (CMS/HCC V24, CMS/HCC V28) [...] for your loved ones. For example, children's choir director or elderly care for an older [...] Info) Description 07/12/2025 11:10 AM EDT Consult [facility] [address] 300 [facility] 154 [place] [phone] German Campbell MD [address] [place] [address] [place] [address] documented as of this encounter Procedures Procedure Name Priority Date/Time Associated Diagnosis Comments COMPLETE BLOOD COUNT Routine 11/13/2024 6:18 AM EST Unspecified atrial fibrillation (CMS/HCC) BASIC METABOLIC PANEL Routine 11/13/2024 6:18 AM EST Unspecified atrial fibrillation (CMS/HCC) documented in this encounter Results * (ABNORMAL) Basic metabolic panel (11/13/2024 6:18 AM EST) Sodium 138 133 - 145 mmol/L LAB CHEMISTRY METHOD 11/13/2024 9:56 AM [facility] Potassium 4.1 3.5 - 5.5 mmol/L LAB CHEMISTRY METHOD 11/13/2024 9:56 AM [facility] Chloride 102 96 - 110 mmol/L LAB CHEMISTRY METHOD 11/13/2024 9:56 AM [facility] CO2 33(H) 21 - 32 mmol/L LAB CHEMISTRY METHOD 11/13/2024 9:56 AM [facility] Anion Gap 3 3 - 11 LAB CHEMISTRY METHOD 11/13/2024 9:56 AM [facility] Glucose 89 70 - 100 mg/dL LAB CHEMISTRY METHOD 11/13/2024 9:56 AM [facility] BUN 7 5 - 25 mg/dL LAB CHEMISTRY METHOD 11/13/2024 9:56 AM [facility] Creatinine 0.50 0.50 - 1.10 mg/dL LAB CHEMISTRY METHOD 11/13/2024 9:56 AM [facility] eGFR 103 >=60 mL/min/1. 73m2 LAB CHEMISTRY METHOD 11/13/2024 9:56 AM [facility] Comment:Calculation based on the Chronic Kidney Disease Epidemiology Collaboration (CKD-EPI) equation refit without adjustment for race. BUN/Creatinine Ratio 14.0 LAB CHEMISTRY METHOD 11/13/2024 9:56 AM [facility] Calcium 9.1 8.5 - 10.5 mg/dL LAB CHEMISTRY METHOD 11/13/2024 9:56 AM [facility] Blood Venous blood specimen / Unknown Venipuncture / Unknown 11/13/2024 6:18 AM EST 11/13/2024 9:23 AM EST Dayanara Barber MD LAB BLOOD ORDERABLES Fin al Result [facility] [address] [place] [address], * (ABNORMAL) Complete blood count (11/13/2024 6:18 AM EST) [facility] Signature WBC 6.7 4.8 - 10.8 K/mcL LAB HEMETOLOGY METHOD 11/13/2024 9:35 AM [facility] RBC 2.90(L) 3.80 - 4.80 M/mcL LAB HEMETOLOGY METHOD 11/13/2024 9:35 AM [facility] Hemoglobin 9.1(L) 11.5 - 16.0 g/dL LAB HEMETOLOGY METHOD 11/13/2024 9:35 AM [facility] Hematocrit 29.0(L) 35.0 - 47.0 % LAB HEMETOLOGY METHOD 11/13/2024 9:35 AM [facility] MCV 101.4(H) 79.0 - 98.0 FL LAB HEMETOLOGY METHOD 11/13/2024 9:35 AM [facility] MCH 31.8 27.0 - 32.0 pcg LAB HEMETOLOGY METHOD 11/13/2024 9:35 AM [facility] MCHC 31.4(L) 32.0 - 37.0 g/dL LAB HEMETOLOGY METHOD 11/13/2024 9:35 AM [facility] RDW 16.1(H) 11.0 - 15.0 % LAB HEMETOLOGY METHOD 11/13/2024 9:35 AM [facility] Platelets 297 130 - 400 K/mcL LAB HEMETOLOGY METHOD 11/13/2024 9:35 AM [facility] MPV 11.4(H) 7.0 - 11.0 FL LAB HEMETOLOGY METHOD 11/13/2024 9:35 AM [facility] NRBC 0.0 <1.0 % LAB [...] al Result [facility] [address] [place] [address], documented in this encounter Visit Diagnoses Diagnosis [...] documented as of this encounter Care Teams Prom Burn Off Operator Relationship Specialty Start Date End Date Fe León MD [address] [address] PCP - General Internal Medicine 01/30/25 documented as of this encounter
--- OUTSIDE RECORDS SUMMARY | 2025-06-22 09:56 | XMS_ITS | Encounter Summary ---
Author Organization [facility] Address [address] [place] [address] Care Team Providers Care Automotive Production Worker Name Role Phone Fe León MD Primary Care Provider Encounter Details Date Type Department Care Team (Late st Contact Info) Description 01/08/2025 Lab Requisition [facility] - Main Lab [address] [facility] [place] [address] Ashley Gonzáles MD [address] [place] [address] Essential (primary) hypertension; Hyperlipidemia, unspecified; Shortness of [...] your loved ones. For example, child support agent or elderly care for an older adult? [...] Info) Description 07/12/2025 11:10 AM EDT Consult [facility] - [facility] [address] 300 [facility] 154 [place] [phone] German Campbell MD [address] [place] [address] [place] [address] documented as of this encounter Procedures Procedure [...] mmol/L LAB CHEMISTRY METHOD 01/08/2025 12:11 PM [facility] Potassium 4.0 3.5 - 5.5 mmol/L LAB CHEMISTRY METHOD 01/08/2025 12:11 PM [facility] Chloride 103 96 - 110 mmol/L LAB CHEMISTRY METHOD 01/08/2025 12:11 PM [facility] CO2 32 21 - 32 mmol/L LAB CHEMISTRY METHOD 01/08/2025 12:11 PM [facility] Anion Gap 5 3 - 11 LAB CHEMISTRY METHOD 01/08/2025 12:11 PM [facility] Glucose 88 70 - 100 mg/dL LAB CHEMISTRY METHOD 01/08/2025 12:11 PM [facility] BUN 10 5 - 25 mg/dL LAB CHEMISTRY METHOD 01/08/2025 12:11 PM [facility] Creatinine 0.52 0.50 - 1.10 mg/dL LAB CHEMISTRY METHOD 01/08/2025 12:11 PM [facility] LAB eGFR 102 >=60 mL/min/1. 73m2 LAB CHEMISTRY METHOD 01/08/2025 12:11 PM [facility] LAB Comment:Calculation based on the Chronic Kidney Disease Epidemiology Collaboration (CKD-EPI) equation refit without adjustment for race. BUN/Creatinine Ratio 19.2 LAB CHEMISTRY METHOD 01/08/2025 12:11 PM [facility] Calcium 9.5 8.5 - 10.5 mg/dL LAB CHEMISTRY METHOD 01/08/2025 12:11 PM [facility] Blood Venous blood specimen / Unknown Venipuncture / Unknown 01/08/2025 6:30 AM EDT 01/08/2025 11:21 AM EDT us Ashley Gonzáles MD LAB BLOOD ORDERABLES Final Resul t [facility] [address] [place] [address], * (ABNORMAL) Complete blood count (01/08/2025 6:30 AM EDT) WBC 4.5(L) 4.8 - 10.8 K/mcL LAB HEMETOLOGY METHOD 01/08/2025 12:19 PM EDT [facility] RBC 3.00(L) 3.80 - 4.80 M/mcL LAB HEMETOLOGY METHOD 01/08/2025 12:19 [facility] Hemoglobin 9.4(L) 11.5 - 16.0 g/dL LAB HEMETOLOGY METHOD 01/08/2025 12:19 PM [facility] Hematocrit 29.8(L) 35.0 - 47.0 % LAB HEMETOLOGY METHOD 01/08/2025 12:19 [facility] MCV 98.7(H) 79.0 - 98.0 FL LAB HEMETOLOGY METHOD 01/08/2025 12:19 PM [facility] MCH 31.1 27.0 - 32.0 pcg LAB HEMETOLOGY METHOD 01/08/2025 12:19 PM T [facility] MCHC 31.5(L) 32.0 - 37.0 g/dL LAB HEMETOLOGY METHOD 01/08/2025 12:19 PM [facility] RDW 14.2 11.0 - 15.0 % LAB HEMETOLOGY METHOD 01/08/2025 12:19 PM [facility] Platelets 187 130 - 400 K/mcL LAB HEMETOLOGY METHOD 01/08/2025 12:19 PM [facility] MPV 11.2(H) 7.0 - 11.0 FL LAB HEMETOLOGY METHOD 01/08/2025 12:19 PM EDT [facility] NRBC 0.0 <1.0 % LAB HEMETOLOGY METHOD 01/08/2025 12:19 PM EDT [facility] NRBC Absolute 0.00 <0.10 K/mcL LAB HEMETOLOGY METHOD 01/08/2025 12:19 PM EDT [facility] Blood Venous blood specimen / Unknown Venipuncture / Unknown 01/08/2025 6:30 AM EDT 01/08/2025 11:21 AM EDT us Ashley Gonzáles MD LAB BLOOD ORDERABLES Final Resul t [facility] [address] [place] [address], documented in this encounter Visit Diagnoses Diagnosis [...] documented as of this encounter Care Teams Automotive Production Worker Relationship Specialty Start Date End Date Fe León MD 75 [facility] 1 [place] [address] PCP - General Internal Medicine 01/30/25 documented as of this encounter
--- OUTSIDE RECORDS SUMMARY | 2025-06-22 09:56 | XMS_ITS | Encounter Summary ---
Author Organization [facility] Address [address] [place] [address] Care Team Providers Care Registered Medical Assistant Name Role Phone Fe León MD Primary Care Provider [phone] Encounter Details Date Type Department Care Team (Late st Contact Info) Description 03/30/2025 Lab Requisition [facility] - Main Lab [address] [facility] [address] [facility] [place] [address] Marvin Juarez MD [address] [place] [address] [address] [place], [address] Essential (primary) hypertension Social History Tobacco [...] your loved ones. For example, child care team lead or elderly care for an older adult? [...] Info) Description 07/12/2025 11:10 AM EDT Consult [facility] - [facility] [address] [facility] 154 [place] [address] German Campbell MD [address] [place] [address] [address] [place] [address] documented as of this encounter Visit Diagnoses Diagnosis Essential (primary) hypertension Unspecified essential hypertension documented in this encounter Care Teams Registered Medical Assistant Relationship Specialty Start Date End Date Fe León MD [address] [facility] 1 [place] [address] PCP - General Internal Medicine 01/30/25 documented as of this encounter
--- OUTSIDE RECORDS SUMMARY | 2025-06-22 09:57 | XMS_ITS | Encounter Summary ---
Author Organization [facility] Address [address] [place] [address] Care Team Providers Care Load Dispatcher Local Name Role Phone Fe León MD Primary Care Provider [phone] Encounter Details Date Type Department Care Team (Late st Contact Info) Description 03/28/2025 Lab Requisition [facility] - Main Lab [address] [facility] [address] [facility] [place] [address] Marvin Juarez MD [address] [place] [address] [address] [place], [phone] Essential (primary) hypertension Social History Tobacco [...] your loved ones. For example, child care centre manager or elderly care for an older adult? [...] Info) Description 07/12/2025 11:10 AM EDT Consult [facility] [address] [facility] [address] [place] [phone] German Campbell MD [address] [place] [address] [place] [phone] documented as of this encounter Procedures Procedure Name Priority Date/Time Associated Diagnosis Comments COMPLETE BLOOD COUNT Routine 03/28/2025 5:24 AM EDT Essential (primary) hypertension COMPREHENSIVE METABOLIC PANEL Routine 03/28/2025 5:24 AM EDT Essential (primary) hypertension documented in this encounter Results * (ABNORMAL) Comprehensive metabolic panel (03/28/2025 5:24 AM EDT) Sodium 134 133 - 145 mmol/L LAB CHEMISTRY METHOD 03/28/2025 12:31 PM [facility] Potassium 4.7 3.5 - 5.5 mmol/L LAB CHEMISTRY METHOD 03/28/2025 12:31 PM [facility] Chloride 95(L) 96 - 110 mmol/L LAB CHEMISTRY METHOD 03/28/2025 12:31 PM [facility] CO2 32 21 - 32 mmol/L LAB CHEMISTRY METHOD 03/28/2025 12:31 PM [facility] Anion Gap 7 3 - 11 LAB CHEMISTRY METHOD 03/28/2025 12:31 PM [facility] Glucose 77 70 - 100 mg/dL LAB CHEMISTRY METHOD 03/28/2025 12:31 PM [facility] BUN 6 5 - 25 mg/dL LAB CHEMISTRY METHOD 03/28/2025 12:31 PM [facility] Creatinine 0.54 0.50 - 1.10 mg/dL LAB CHEMISTRY METHOD 03/28/2025 12:31 PM [facility] eGFR 101 >=60 mL/min/1. 73m2 LAB CHEMISTRY METHOD 03/28/2025 12:31 PM [facility] Comment:Calculation based on the Chronic Kidney Disease Epidemiology Collaboration (CKD-EPI) equation refit without adjustment for race. BUN/Creatinine Ratio 11.1 LAB CHEMISTRY METHOD 03/28/2025 12:31 PM [facility] Calcium 9.5 8.5 - 10.5 mg/dL LAB CHEMISTRY METHOD 03/28/2025 12:31 PM [facility] AST (SGOT) 25 10 - 42 unit/L LAB CHEMISTRY METHOD 03/28/2025 12:31 PM [facility] ALT (SGPT) 28 10 - 60 unit/L LAB CHEMISTRY METHOD 03/28/2025 12:31 PM [facility] Alkaline Phosphatase 113 42 - 121 unit/L LAB CHEMISTRY METHOD 03/28/2025 12:31 PM EDT [facility] Total Protein 6.0 6.0 - 8.0 g/dL LAB CHEMISTRY METHOD 03/28/2025 12:31 PM EDT [facility] Albumin 3.1(L) 3.2 - 5.0 g/dL LAB CHEMISTRY METHOD 03/28/2025 12:31 PM EDT [facility] Total Bilirubin 0.5 0.0 - 1.4 mg/dL LAB CHEMISTRY METHOD 03/28/2025 12:31 PM EDT [facility] Blood Venous blood specimen / Unknown Venipuncture / Unknown 03/28/2025 5:24 AM EDT 03/28/2025 10:08 AM EDT us Marvin Juarez MD LAB BLOOD ORDERABLES Final Resul t [facility] [address] [place] [address], [place] [phone] * (ABNORMAL) Complete blood count (03/28/2025 5:24 AM EDT) WBC 6.2 4.8 - 10.8 K/mcL LAB HEMETOLOGY METHOD 03/28/2025 10:46 AM EDT [facility] RBC 4.00 3.80 - 4.80 M/mcL LAB HEMETOLOGY METHOD 03/28/2025 10:46 AM EDT [facility] Hemoglobin 10.3(L) 11.5 - 16.0 g/dL LAB HEMETOLOGY METHOD 03/28/2025 10:46 AM EDT [facility] Hematocrit 35.0 35.0 - 47.0 % LAB HEMETOLOGY METHOD 03/28/2025 10:46 AM EDT [facility] MCV 87.5 79.0 - 98.0 FL LAB HEMETOLOGY METHOD 03/28/2025 10:46 AM EDT [facility] MCH 25.8(L) 27.0 - 32.0 pcg LAB HEMETOLOGY METHOD 03/28/2025 10:46 AM EDT [facility] MCHC 29.4(L) 32.0 - 37.0 g/dL LAB HEMETOLOGY METHOD 03/28/2025 10:46 AM EDT [facility] RDW 21.6(H) 11.0 - 15.0 % LAB HEMETOLOGY METHOD 03/28/2025 10:46 AM EDT [facility] Platelets 305 130 - 400 K/mcL LAB HEMETOLOGY METHOD 03/28/2025 10:46 AM EDT [facility] MPV 10.9 7.0 - 11.0 FL LAB HEMETOLOGY METHOD 03/28/2025 10:46 AM EDT [facility] NRBC 0.0 <1.0 % LAB HEMETOLOGY METHOD 03/28/2025 10:46 AM EDT [facility] NRBC Absolute 0.00 <0.10 K/mcL LAB HEMETOLOGY METHOD 03/28/2025 10:46 AM T [facility] Blood Venous blood specimen / Unknown Venipuncture / Unknown 03/28/2025 5:24 AM EDT 03/28/2025 10:08 AM EDT us Marvin Juarez MD LAB BLOOD ORDERABLES Final Resul t [facility] [address] [place] [address], documented in this encounter Visit Diagnoses Diagnosis Essential (primary) hypertension Unspecified essential hypertension documented in this encounter Care Teams Load Dispatcher Local Relationship Specialty Start Date End Date Fe León MD [address] [place] [phone] PCP - General Internal Medicine 01/30/25 documented as of this encounter
--- OUTSIDE RECORDS SUMMARY | 2025-06-22 09:57 | XMS_ITS | Clinical Summary ---
Author Organization [address] [facility] Address [address] [place] [address] Phone Care Team Providers Care Firer Bisque Kiln Name Role Phone Fe León MD Primary Care Provider Allergies Active Allergy Reactions Criticality Noted Date Comments Benazepril 01/30/2025 Levofloxacin Swelling High 03/21/2018 nauseous Medications DULoxetine (CYMBALTA) [address] capsule Take [...] mouth 2 (two) times a day. Active atorvastatin (LIPITOR) 40 mg tablet TAKE 1 TABLET BY MOUTH EVERY DAY 90 tablet 06/21/20 25 Active atorvastatin (LIPITOR) 40 mg tablet Take 1 tablet (40 mg total) by mouth at bedtime. 025 Discontinued gabapentin (NEURONTIN) 300 mg capsuleIndicat ions:neuropath ic [...] Daily Amount: 30 mg 10 tablet 03/08/20 025 Discontinued(Di scontinued by another clinician) furosemide [...] spoke with patient, her daughter lives in [place] and she is willing to [place] [facility] will be sent. Cervical spondylosis 01/30/2025 [...] disorders 10/01/2024 Longstanding persistent atri al fibrillation ([facility] V24, [facility] V28) 09/30/2024 Secondary hypercoagulable state ([facility] V24) Hypotension 06/13/2024 SOB (shortness [...] as able. Chronic hypoxemic respirator y failure ([facility] V24, [facility] V28) 09/02/2023 Overview (09/06/2024): Last Assessment & Plan: Followed regularly by pulmonology, Paroxysmal A-fib ([facility] V24, [facility] V28) 08/18 Overview (09/06/2024): Last [...] episodes of lightheadedness/near syncope. Chronic rheumatic arthritis ([facility] V24, [facility] V28) 11/11/2017 Fibromyalgia 11/11/2017 Peripheral neuropathy 11/11/2017 Peripheral vascular disease ([facility] V24) 2017 Overview (09/06/2024): S/p stent r leg Last Assessment & Plan: Followed by vascular surgery; she remains on Plavix at their recommendation. 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 Resolved Problems Problem Noted Date Diagnosed Date Resolved Date Atrial fibrillation with rap id ventricular response ([facility] V24, [facility] V28) 09/30/202409/17 Celiac disease 11/11/2017 01/30/2025 Encounters Date Type Department Care Team Description 06/14/2025 Telephone [facility] - [address] [place] [address] Tricia Montague NP 06/12/2025 Telephone [facility] - [address] [place] [address] Sarah Whitten MA 06/08/2025 Telephone [facility] - [address] [place] [address] Tricia Montague NP 06/06/2025 9:10 AM EDT Office Visit [facility] - [address] [place] [address] Tricia Montague NP Paroxysmal A-fib (CMS/HCC V24, CMS/HCC V28) (Primary Dx); Primary hypertension; Chronic diastolic heart failure (CMS/HCC V24, CMS/HCC V28) 05/28/2025 Telephone [facility] - [address] [place] [address] Tariq Villalobos MD 05/22/2025 Telephone Neurosurgery [facility] [address] [place] [address] Lacey Ledesma MA 05/07/2025 Telephone [facility] - [address] [place] [address] Tariq Villalobos MD 05/04/2025 Telephone [facility] - [address] [place] [address] Sarah Whitten MA 05/03/2025 12:40 PM EDT Office Visit [facility] - [address] [place] [address] Tricia Montague NP Primary hypertension (Primary Dx); Paroxysmal A-fib (CMS/HCC V24, CMS/HCC V28); Chronic diastolic heart failure (CMS/HCC V24, CMS/HCC V28) 05/03/2025 Telephone [facility] - [facility] [address] [facility] [address] [place] [phone] Tricia Montague NP 04/24/2025 9:45 AM EDT Office Visit General Surgery [facility] 175 [facility] [address] [place] [phone] Fransico Pastor MD Calculus of gallbladder without cholecystitis without obstruction (Primary Dx) 04/16/2025 Telephone [facility] 175 [facility] 300 [place] [phone] Lacey Ledesma MA 04/12/2025 6:59 AM EDT - 04/12/2025 3:31 PM EDT Emergency [facility] Emergency [address] [place] [phone] Fall, initial encounter (Primary Dx); Head injury, initial encounter; Closed head injury, initial encounter; Laceration of head without foreign body, unspecified part of head, initial encounter Discharge Disposition: Home or Self Care 04/11/2025 Telephone [facility] 175 [facility] 300 [place] [address] Rylee Gomez MD 03/30/2025 Lab Requisition [facility] [address] [place] [phone] Marvin Juarez MD Essential (primary) hypertension 03/28/2025 Lab Requisition [facility] [address] [place] [phone] Marvin Juarez MD Essential (primary) hypertension 03/22/2025 Telephone [facility] [address] [phone] Araseli Foster PA 03/20/2025 2:38 AM EDT - 03/27/2025 3:40 PM EDT Hospital Encounter [facility] [address] [place] [phone] Dakotah Long, DO BukaloFilemon MD Zipagan, James T, MD Kokosadze, Estate, MD Nausea and vomiting, unspecified vomiting type (Primary Dx); Hypomagnesemia; Sepsis, due to unspecified organism, unspecified whether acute organ dysfunction present ([facility] V24, [facility] V28); Calculus of gallbladder without cholecystitis without obstruction; Lactic acidosis; Epigastric pain Discharge Disposition: Jail Facility from Last 3 Months Immunizations Name [...] GI bleed SHO on CPAP Rheumatoid arthritis ([facility] V24, [facility] V28) A-fib ([facility] V24, [facility] V28) Iron deficiency anemia secon anna to blood loss (chronic) COPD (chronic obstructive pu lmonary disease) ([facility] V24, [facility] V28) Aortic valve disorder 06/18/2021 Last Asses [...] care for your loved ones. For example, salesperson children's shoes or elderly care for an older adult? [...] Info) Description 07/12/2025 11:10 AM EDT Consult [facility] [address] [facility] [address] [place] [phone] German Campbell MD [address] [place] [address] [address] [place] [address] Health Maintenance Due Date Last Done Comments Breast Cancer Screening 1955 Zoster Vaccines (2 of 2) 08/20/2021 06/25/2021 Cholesterol Screening (Lipid Panel) 09/27/2022 Hepatitis C Screening 09/27/2022 Medicare Annual Wellness Visit 09/27/2022 Osteoporosis Screening (Bone Density Screening) 09/27/2022 Depression Screening 10/18/2024 COVID-19 Vaccine ( season) 2025 01/17/2022, 06/14/2021, 12/12/2020, Additional history exists Influenza Vaccine (#1) 2025 , 06/25/2021, 06/28/2020, [...] this topic Medical Devices Implanted Type Area Associate Financial Analyst Device Identifier Shelf Expiration Date Model / Serial / Lot Plate Humerus Proximal 103mm Hepburn Lft Ss - Sn/A - [id number] Implanted:Qty: 1 on 10/30/2024 by Jose Nash MD at [facility] Internal and External Fixation Left: Arm Just[employer] [facility] 2168.1103 / N/A / N/A Screw Lcking Monoax 3.5x30mm Blunt Tip Ss Hepburn Prox Hum Fx - Sn/A - [id number] Implanted:Qty: 2 on 10/30/2024 by Jose Nash MD at [facility] Internal and External Fixation Left: Arm [facility] 2168.6030 / N/A / N/A Screw Lcking Monoax 3.5x38mm Blunt Tip Ss Hepburn Prox Hum Fx - Sn/A - [id number] Implanted:Qty: 1 on 10/30/2024 by Jose Nash MD at [facility] Internal and External Fixation Left: [facility] 2168.6038 / N/A / N/A Screw Lcking Monoax 3.5x40mm Blunt Tip Ss Hepburn Prox Hum Fx - Sn/A - [id number] Implanted:Qty: 2 on 10/30/2024 by Jose Nash MD at [facility] Internal and External Fixation Left: [facility] 2168.6040 / N/A / N/A Screw Lcking Monoax 3.5x50mm Blunt Tip Ss Hepburn Prox Hum Fx - Sn/A - [id number] Implanted:Qty: 1 on 10/30/2024 by Jose Nash MD at [facility] Internal and External Fixation Left: [facility] 2168.6050 / N/A / N/A Screw Nonlcking 3.5x26mm Ss Hepburn Sm Frag Fracture Sys - Sn/A - [id number] Implanted:Qty: 2 on 10/30/2024 by Jose Nash MD at [facility] Internal and External Fixation Left: [facility] 2179.3026 / N/A / N/A Screw Nonlcking 3.5x28mm Ss Hepburn Sm Frag Fracture Sys - Sn/A - [id number] Implanted:Qty: 2 on 10/30/2024 by Jose Nash MD at [facility] Internal and External Fixation Left: [facility] 2179.3028 / N/A / N/A Screw Nonlcking 3.5x30mm Ss Hepburn Sm Frag Fracture Sys - Sn/A - [id number] Implanted:Qty: 1 on 10/30/2024 by Jose Nash MD at [facility] Internal and External Fixation Left: [facility] 2179.3030 / N/A / N/A Screw Lcking 4.0x50mm Cocr Hepburn Prox Hum Fracture Sys - Sn/A - [id number] Implanted:Qty: 1 on 10/30/2024 by Jose Nash MD at [facility] Internal and External Fixation Left: Arm [facility] 7168.4050 / N/A / N/A [place] Ax Locking Screw 3.5x44mm Blunt Tip Implanted:Qty: 3 on 10/30/2024 by Jose Nash MD at [facility] Left: Arm [facility] 2168.6044 / N/A / N/A [place] Ax Locking Screw 3.5x46mm Blunt Tip Implanted:Qty: 1 on 10/30/2024 by Jose Nash MD at [facility] Left: Arm [facility] 2168.6046 / N/A / N/A Procedures Procedure [...] METABOLIC PANEL Routine 03/22/2025 5:28 AM EDT OCCULT BLOOD STOOL, GUAIAC STAT 03/05/2025 3:40 PM EDT from Last 3 Months or Most Recently Relevant to Health Maintenance Results * (ABNORMAL) Basic metabolic panel (06/11/2025 8:30 AM EDT) Only the most recent of6 resultswithin the time period is included. [facility] Glucose 146(H) 70 - 99 mg/dL [facility] [...] 4:06 AM EDT Performed at: 01 - [facility] [id number] Occupational Therapy Teacher: Nan Santiago MD, Phone: [phone] Tricia Montague NP LAB BLOOD ORDERABLES Final [...] Signed Date: 04/12/2025 15:17 ET Workstation ID: [id number] Transcribed By: Self Edit Transcribed Date: 04/12/2025 [...] Signed Date: 04/12/2025 15:17 ET Workstation ID: [id number] Transcribed By: Self Edit Transcribed Date: 04/12/2025 [...] Signed Date: 04/12/2025 15:18 ET Workstation ID: [id number] Transcribed By: Self Edit Transcribed Date: 04/12/2025 [...] Signed Date: 04/12/2025 15:18 ET Workstation ID: [id number] Transcribed By: Self Edit Transcribed Date: 04/12/2025 15:17 ET Lisandra ANDREWS IMG XR PROCEDURES Aundrea l Result * Laceration Repair (04/12/2025 11:16 AM EDT) Raj Dakotah Long, DO - 04/12/2025 11:16 AM EDT JULIANA Dhaliwal 04/12/2025 11:18 AM Laceration Repair Date/Time: 04/12/2025 11:16 AM Performed by: JULIANA Dhaliwal Authorized by: JULIANA Dhaliwal Consent: Consent obtained: Verbal Consent given by: Patient Alternatives discussed: No treatment Leopold protocol: Procedure explained and questions answered to [...] had significant amount of bleeding with wound. Lisandra ANDREWS [facility] Final Result * (ABNORMAL) CBC auto differential (04/12/2025 8:03 AM EDT) Only the most recent of4 resultswithin the time period is included. WBC 9.3 4.8 - 10.8 K/mcL LAB HEMETOLOGY METHOD 04/12/2025 8:57 AM EDT [facility] RBC 3.70(L) 3.80 - 4.80 M/[facility] LAB HEMETOLOGY METHOD 04/12/2025 8:57 AM EDT [facility] Hemoglobin 9.5(L) 11.5 - 16.0 g/dL LAB HEMETOLOGY METHOD 04/12/2025 8:57 AM [facility] Hematocrit 30.7(L) 35.0 - 47.0 % LAB HEMETOLOGY METHOD 04/12/2025 8:57 AM [facility] MCV 84.1 79.0 - 98.0 FL LAB HEMETOLOGY METHOD 04/12/2025 8:57 AM [facility] MCH 26.0(L) 27.0 - 32.0 pcg LAB HEMETOLOGY METHOD 04/12/2025 8:57 AM [facility] MCHC 30.9(L) 32.0 - 37.0 g/dL LAB HEMETOLOGY METHOD 04/12/2025 8:57 AM [facility] RDW 20.5(H) 11.0 - 15.0 % LAB HEMETOLOGY METHOD 04/12/2025 8:57 AM [facility] Platelets 268 130 - 400 K/mcL LAB HEMETOLOGY METHOD 04/12/2025 8:57 AM [facility] MPV 11.1(H) 7.0 - 11.0 FL LAB HEMETOLOGY METHOD 04/12/2025 8:57 AM [facility] NRBC 0.0 <1.0 % LAB HEMETOLOGY METHOD 04/12/2025 8:57 AM [facility] NRBC Absolute 0.00 <0.10 K/mcL LAB HEMETOLOGY METHOD 04/12/2025 8:57 AM [facility] Neutrophils Relative 67.6 % LAB HEMETOLOGY METHOD 04/12/2025 8:57 AM [facility] Lymphocytes Relative 20.8 % LAB HEMETOLOGY METHOD 04/12/2025 8:57 AM [facility] Monocytes Relative 8.6 % LAB HEMETOLOGY METHOD 04/12/2025 8:57 AM EDT [facility] Eosinophils Relative 2.0 % LAB HEMETOLOGY METHOD 04/12/2025 8:57 AM EDT [facility] Basophils Relative 0.5 % LAB HEMETOLOGY METHOD 04/12/2025 8:57 AM EDT [facility] Immature Granulocytes Relative 0.5 % LAB HEMETOLOGY METHOD 04/12/2025 8:57 AM EDT [facility] Neutrophils Absolute 6.25 1.50 - 7.00 K/mcL LAB HEMETOLOGY METHOD 04/12/2025 8:57 AM EDT [facility] Lymphocytes Absolute 1.93 1.00 - 5.00 K/mcL LAB HEMETOLOGY METHOD 04/12/2025 8:57 AM EDT [facility] Monocytes Absolute 0.80 0.20 - 1.00 K/mcL LAB HEMETOLOGY METHOD 04/12/2025 8:57 AM EDT [facility] Eosinophils Absolute 0.19 0.00 - 0.50 K/mcL LAB HEMETOLOGY METHOD 04/12/2025 8:57 AM EDT [facility] Basophils Absolute 0.05 0.00 - 0.20 K/mcL LAB HEMETOLOGY METHOD 04/12/2025 8:57 AM EDT [facility] Immature Granulocytes Absolute 0.05(H) 0.00 - 0.03 K/mcL LAB HEMETOLOGY METHOD 04/12/2025 8:57 AM EDT [facility] Blood Venous blood specimen / Unknown Venipuncture / Unknown 04/12/2025 8:03 AM EDT 04/12/2025 8:35 AM EDT us Dakotah Long DO LAB BLOOD ORDERABLES Final Result [facility] [address] [place] [address], [place] [phone] * Protime-INR (04/12/2025 8:03 AM EDT) Protime 13.3 10.6 - 13.9 sec LAB COAGULATION METHOD 04/12/2025 8:43 AM EDT [facility] INR 1.1 LAB COAGULATION METHOD 04/12/2025 8:43 AM EDT [facility] Blood Venous blood specimen / Unknown Venipuncture / Unknown 04/12/2025 8:03 AM EDT 04/12/2025 8:35 AM EDT Daktoah Long DO LAB BLOOD ORDERABLES Final Result [facility] [address] [place] [address], [place] [phone] * CT Cervical Spine wo Contrast (04/12/2025 [...] Signed Date: 04/12/2025 08:35 ET Workstation ID: [id number] Transcribed By: Self Edit Transcribed Date: 04/12/2025 08:31 ET Narrative 04/12/2025 8:35 AM EDT INDICATION: Head and neck trauma with laceration Technique: CT scan of the cervical spine obtained without contrast. Scanner: Rizzoma 128 slice VCT Dose reduction technique: ASIR [...] the cervical spine obtained without contrast. Scanner: Rizzoma 128 slice VCT Dose reduction technique: ASIR [...] Signed Date: 04/12/2025 08:35 ET Workstation ID: [id number] Transcribed By: Self Edit Transcribed Date: 04/12/2025 08:31 ET us Dakotah Long DO IMG CT [...] Signed Date: 04/12/2025 08:37 ET Workstation ID: [id number] Transcribed By: Self Edit Transcribed Date: 04/12/2025 08:36 ET Narrative 04/12/2025 8:37 AM EDT INDICATION: Head trauma Technique: Axial images were obtained from the skull base to the vertex without contrast enhancement. Coronal and sagittal reformats obtained. Scanner: Vendobots revolution frontier 128 slice VCT Dose reduction [...] enhancement. Coronal and sagittal reformats obtained. Scanner: Vendob[employer] frontier 128 slice VCT Dose reduction [...] Signed Date: 04/12/2025 08:37 ET Workstation ID: [id number] Transcribed By: Self Edit Transcribed Date: 04/12/2025 08:36 ET Dakotah Long DO IMG CT PROCEDURES Final Res ult * (ABNORMAL) Complete blood count (03/28/2025 5:24 AM EDT) WBC 6.2 4.8 - 10.8 K/mcL LAB HEMETOLOGY METHOD 03/28/2025 10:46 AM [facility] RBC 4.00 3.80 - 4.80 M/mcL LAB HEMETOLOGY METHOD 03/28/2025 10:46 AM [facility] Hemoglobin 10.3(L) 11.5 - 16.0 g/dL LAB HEMETOLOGY METHOD 03/28/2025 10:46 AM [facility] Hematocrit 35.0 35.0 - 47.0 % LAB HEMETOLOGY METHOD 03/28/2025 10:46 AM [facility] MCV 87.5 79.0 - 98.0 FL LAB HEMETOLOGY METHOD 03/28/2025 10:46 AM [facility] MCH 25.8(L) 27.0 - 32.0 pcg LAB HEMETOLOGY METHOD 03/28/2025 10:46 AM EDT [facility] MCHC 29.4(L) 32.0 - 37.0 g/dL LAB HEMETOLOGY METHOD 03/28/2025 10:46 AM EDT [facility] RDW 21.6(H) 11.0 - 15.0 % LAB HEMETOLOGY METHOD 03/28/2025 10:46 AM EDT [facility] Platelets 305 130 - 400 K/mcL LAB HEMETOLOGY METHOD 03/28/2025 10:46 AM EDT [facility] MPV 10.9 7.0 - 11.0 FL LAB HEMETOLOGY METHOD 03/28/2025 10:46 AM EDT [facility] NRBC 0.0 <1.0 % LAB HEMETOLOGY METHOD 03/28/2025 10:46 AM EDT [facility] NRBC Absolute 0.00 <0.10 K/mcL LAB HEMETOLOGY METHOD 03/28/2025 10:46 AM EDT [facility] Blood Venous blood specimen / Unknown Venipuncture / Unknown 03/28/2025 5:24 AM EDT 03/28/2025 10:08 AM EDT us Marvin Juarez MD LAB BLOOD ORDERABLES Final Resul t [facility] [address] [place] [address], * (ABNORMAL) Comprehensive metabolic panel (03/28/2025 5:24 AM EDT) Sodium 134 133 - 145 mmol/L LAB CHEMISTRY METHOD 03/28/2025 12:31 PM EDT [facility] Potassium 4.7 3.5 - 5.5 mmol/L LAB CHEMISTRY METHOD 03/28/2025 12:[facility] Chloride 95(L) 96 - 110 mmol/L LAB CHEMISTRY METHOD 03/28/2025 12:31 PM [facility] CO2 32 21 - 32 mmol/L LAB CHEMISTRY METHOD 03/28/2025 12:31 PM [facility] Anion Gap 7 3 - 11 LAB CHEMISTRY METHOD 03/28/2025 12:31 PM [facility] Glucose 77 70 - 100 mg/dL LAB CHEMISTRY METHOD 03/28/2025 12:31 PM [facility] BUN 6 5 - 25 mg/dL LAB CHEMISTRY METHOD 03/28/2025 12:31 PM [facility] Creatinine 0.54 0.50 - 1.10 mg/dL LAB CHEMISTRY METHOD 03/28/2025 12:31 PM [facility] eGFR 101 >=60 mL/min/1. 73m2 LAB CHEMISTRY METHOD 03/28/2025 12:31 PM [facility] Comment:Calculation based on the Chronic Kidney Disease Epidemiology Collaboration (CKD-EPI) equation refit without adjustment for race. BUN/Creatinine Ratio 11.1 LAB CHEMISTRY METHOD 03/28/2025 12:31 PM [facility] Calcium 9.5 8.5 - 10.5 mg/dL LAB CHEMISTRY METHOD 03/28/2025 12:31 PM [facility] AST (SGOT) 25 10 - 42 unit/L LAB CHEMISTRY METHOD 03/28/2025 12:31 PM [facility] ALT (SGPT) 28 10 - 60 unit/L LAB CHEMISTRY METHOD 03/28/2025 12:31 PM [facility] Alkaline Phosphatase 113 42 - 121 unit/L LAB CHEMISTRY METHOD 03/28/2025 12:31 PM [facility] Total Protein 6.0 6.0 - 8.0 g/dL LAB CHEMISTRY METHOD 03/28/2025 12:31 PM [facility] Albumin 3.1(L) 3.2 - 5.0 g/dL LAB CHEMISTRY METHOD 03/28/2025 12:31 PM EDT [facility] Total Bilirubin 0.5 0.0 - 1.4 mg/dL LAB CHEMISTRY METHOD 03/28/2025 12:31 PM EDT [facility] Blood Venous blood specimen / Unknown Venipuncture / Unknown 03/28/2025 5:24 AM EDT 03/28/2025 10:08 AM EDT us Marvin Juarez MD LAB BLOOD ORDERABLES Final Resul t Performing Organization Address City/[facility]/ZIP Co de Phone Number [facility] [address] [place] [address], [place] [phone] * (ABNORMAL) Magnesium (03/26/2025 6:32 AM EDT) Only the most recent of5 resultswithin the time period is included. Magnesium 1.7(L) 1.9 - 2.6 mg/dL LAB CHEMISTRY METHOD 03/26/2025 8:09 AM EDT [facility] Blood Venous blood specimen / Unknown Venipuncture / Unknown 03/26/2025 6:32 AM EDT 03/26/2025 7:19 AM EDT us Jefferson Cho MD LAB BLOOD ORDERABLES Final Re sult [facility] [address] [place] [address], [place] [phone] * Lavender tube (03/25/2025 5:22 AM EDT) Extra Tube Hold for add-ons. 03/25/2025 12:01 PM EDT [facility] Comment:Auto resulted. Blood Venous blood specimen / Unknown Venipuncture / Unknown 03/25/2025 5:22 AM EDT 03/25/2025 6:29 AM EDT Jefferson Cho MD LAB BLOOD ORDERABLES Final Re sult [facility] [facility] [address] [place] [address], [place] [phone] * US Abdomen Limited (03/23/2025 11:16 AM [...] Signed Date: 03/23/2025 11:49 ET Workstation ID: [id number] Transcribed By: Self Edit Transcribed Date: 03/23/2025 11:48 ET Narrative 03/23/2025 11:49 AM EDT PROCEDURE: US ABDOMEN LIMITED INDICATION: Cholecystitis TECHNIQUE: 2-D khalil scale, color Doppler ultrasound of the abdomen. [...] US ABDOMEN LIMITED INDICATION: Cholecystitis TECHNIQUE: 2-D khalil scale, color Doppler ultrasound of the abdomen. [...] Signed Date: 03/23/2025 11:49 ET Workstation ID: [id number] Transcribed By: Self Edit Transcribed Date: 03/23/2025 11:48 ET us Jessica Lopezner JULIANA IMG US PROCEDURES Final Re sult * (ABNORMAL) Hepatic function panel (03/23/2025 5:33 AM EDT) Total Protein 5.9(L) 6.0 - 8.0 g/dL LAB CHEMISTRY METHOD 03/23/2025 10:06 AM [facility] Albumin 2.9(L) 3.2 - 5.0 g/dL LAB CHEMISTRY METHOD 03/23/2025 10:06 AM [facility] Total Bilirubin 0.8 0.0 - 1.4 mg/dL LAB CHEMISTRY METHOD 03/23/2025 10:06 AM [facility] Bilirubin, Direct 0.4(H) 0.0 - 0.3 mg/dL LAB CHEMISTRY METHOD 03/23/2025 10:06 AM [facility] Bilirubin, Indirect 0.4 0.0 - 1.1 mg/dL LAB CHEMISTRY METHOD 03/23/2025 10:06 AM [facility] ALT (SGPT) 24 10 - 60 unit/L LAB CHEMISTRY METHOD 03/23/2025 10:06 AM [facility] AST (SGOT) 33 10 - 42 unit/L LAB CHEMISTRY METHOD 03/23/2025 10:06 AM EDT [facility] Alkaline Phosphatase 111 42 - 121 unit/L LAB CHEMISTRY METHOD 03/23/2025 10:06 AM EDT [facility] Blood Venous blood specimen / Unknown Venipuncture / Unknown 03/23/2025 5:33 AM EDT 03/23/2025 6:19 AM EDT us Jessica ANDREWS LAB BLOOD ORDERABLES Final Result Performing Organization Address [facility]/ZIP Co de Phone Number [facility] [address] [place], [place] [address], [place] [phone] * Potassium (03/22/2025 12:10 PM EDT) Potassium 3.7 3.5 - 5.5 mmol/L LAB CHEMISTRY METHOD 03/22/2025 12:46 PM EDT [facility] Blood Venous blood specimen / Unknown Venipuncture / Unknown 03/22/2025 12:10 PM EDT 03/22/2025 12:31 PM EDT Jessica ANDREWS LAB BLOOD ORDERABLES Final Result Performing Organization Address [facility]/ZIP Co de Phone Number [facility] [address] [place] [address], [place] [phone] * Occult blood stool, guaiac (03/05/2025 3:40 PM EDT) Occult Blood, Stool #1 Negative Negative 03/05/2025 5:08 PM EDT [facility] Stool Non-blood Collection / Unknown 03/05/2025 3:40 PM EDT 03/05/2025 4:00 PM EDT Trevor Hubbard MD LAB BODY FLUIDS AND STOOLS ORDERABLES Final Result [facility] ([facility] [address] [place] [address], from Last 3 Months or Most Recently Relevant to Health Maintenance Insurance [employer] MEDICARE ADVANTAGE [place]ICAID - [place] Advance Directives Documents on File Type Date Recorded Patient Personalized Living Manager Expl anation Health Care Decision (hx) 11/08/2023 [...] Relationship Healthcare Agent Relationship Communication Mary Collins Health Care Agent Sujey Sanchez Health Care Agent Care Teams Firer Bisque Kiln Relationship Specialty Start Date End Date Fe León MD [address] [facility] 1 [place] [address] PCP - General Internal Medicine 01/30/25
--- OUTSIDE RECORDS SUMMARY | 2025-06-22 09:57 | XMS_ITS | Clinical Summary ---
Author Organization [facility] Address [address] [place] [address] Phone Care Team Providers Care In Shop Service Technician Name Role Phone Jean Paul Arteaga MD Primary Care Provider + Allergies No known active allergies Medications oxygen permeable contact lens edge buffer Liqd by Miscellaneous route. 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); Paresthesias in left hand 06/05/2025 Orders Only [facility] Neurosurgery [address] [facility], 7th Floor, [address] [place] [address] Brianna Vazquez MA Left hand pain (Primary Dx) 05/22/2025 9:30 AM EDT Office Visit [facility] Neurosurgery at [facility] [address] [address], [address] [place] [address] Jamie Grady MD Left hand pain (Primary [...] Info) Description 07/13/2025 1:30 PM EDT Appointment [facility] for [facility]patient Care, Ultrasound [address] [place] [address] Jamie Grady MD 55 [facility] [address] [place] [phone] [email or web address] 07/18/2025 11:45 AM EDT Telemedicine - audio only [facility] Neurosurgery at [facility] [address], [address] [place] [address] Jamie Grady MD [address] [place] [phone] [email or web address] Health Maintenance Due Date Last Done Comments [...] A & B AETNA O MEDICARE REPLACEMENT [facility] MEDICARE PART A & B [employer] PPO MEDICARE REPLACEMENT [place] MED[place]ARE PART A & B [place] MED[place] PART A & B MEDICARE PART A & B [employer] PPO MEDICARE REPLAC[place] MED[place]ARE PART A & [facility] MEDICARE REPLACEMENT [facility] MEDICARE PART A & [facility] MEDICARE PART A & B [employer] O MEDICARE REPLACEMENT [facility] Care Teams In Shop Service Technician Relationship Specialty Start Date End Date Jean Paul Arteaga MD 24 [facility] Family Medicine & [place] [address] PCP - General Internal Medicine 05/25/17 Additional Source Comments The information contained in this document represents components of the legal health record. It is not the complete legal health record.[facility]
--- OUTSIDE RECORDS SUMMARY | 2025-06-22 09:57 | XMS_ITS | Encounter Summary ---
Author Organization [facility] Address [address] [facility] [address] [place] [address] Phone Care Team Providers Care Infusion Pharmacist Name Role Phone Jean Paul Arteaga MD Primary Care Provider + Reason for Referral * Consultation (Elective) - Closed Specialty Diagnoses / Procedures Referred By Contac t Referred To Contact Neurology Diagnoses Encounter for consultation System, Provider Not In, PhD [address] [address] Phone: tel: Referral ID Status Reason Start Date Expiration Date Visits Re quested Visits Authorized [id number] Closed 06/24/2017 06/24/2018 1 1 Encounter Details Date Type Department Care Team (Latest Contact Info) Description 06/24/2017 Transcribe Orders [facility] Department of Neurology [address] [facility], 8th Floor, [address] [place] [address] Romario Andino MD [address] [address] Encounter for consultation (Primary Dx) Social History [...] Info) Description 07/13/2025 1:30 PM EDT Appointment [facility] for Outpatient Care, Ultrasound [address] [place] [address] Jamie Grady MD 55 [facility] [address] [place] [phone] [email or web address] 07/18/2025 11:45 AM EDT Telemedicine - audio only [facility] Neurosurgery at [facility] [address] [facility], [address] [place] [address] Jamie Grady MD [address] [place] [phone] [email or web address] Scheduled Referrals Name Type Priority Associated Diagnoses Orde r Schedule Ambulatory referral to [facility] Neurology Outpatient Referral Routine Encounter for consultation Ordered: 06/24/2017 documented as of this encounter Visit Diagnoses Diagnosis Encounter for consultation- Primary documented in this encounter Care Teams Infusion Pharmacist Relationship Specialty Start Date End Date Jean Paul Arteaga MD 24 [facility] Family Medicine & [place] [address] PCP - General Internal Medicine 05/25/17 documented as of this encounter Additional Source Comments The information contained in this document represents components of the legal health record. It is not the complete legal health record.[facility]
== END 2025-06-22 10:02 | disposition home or self-care (01) ==
LOC: HO.HPS 09:08
PROVIDERS: PCP Internal Medicine; Visit Provider Hospitalist
DX: J96.11 Chronic respiratory failure with hypoxia (principal); J44.9 Chronic obstructive pulmonary disease, unspecified; Z14.1 Cystic fibrosis carrier; R05.3 Chronic cough; J30.0 Vasomotor rhinitis; D80.1 Nonfamilial hypogammaglobulinemia; J98.11 Atelectasis; E27.40 Unspecified adrenocortical insufficiency; D64.9 Anemia, unspecified
CPT/HCPCS: 99214; G2211

== ENCOUNTER → 2025-06-22 09:08 | Outpatient (BNVA) | payer MEDICARE, MEDICAID, SELFPAY | PROVIDERS: PCP Internal Medicine; Visit Provider Hospitalist | DX: J96.11 Chronic respiratory failure with hypoxia (principal); J44.9 Chronic obstructive pulmonary disease, unspecified; R05.3 Chronic cough; J30.0 Vasomotor rhinitis; D80.1 Nonfamilial hypogammaglobulinemia; J98.11 Atelectasis; E27.40 Unspecified adrenocortical insufficiency; D64.9 Anemia, unspecified; Z14.1 Cystic fibrosis carrier; Z99.81 Dependence on supplemental oxygen | CPT/HCPCS: 99212 ==

== ENCOUNTER 2025-08-10 11:06 | Outpatient (AMB) | payer MEDICARE, MEDICAID, SELFPAY ==
--- OUTSIDE RECORDS SUMMARY | 2025-08-04 09:14 | XMS_ITS | Encounter Summary ---
Author Organization [facility] Address [address] [place] [address] Care Team Providers Care Software Engineer Advisor Name Role Phone Fe León MD Primary Care Provider Reason for Referral * Imaging (Routine) - Pending Review Specialty Diagnoses / Procedures Referred By Cristy guerra Referred To Contact Radiology Diagnoses Diverticulitis Procedures MR Abdomen wo and w Contrast Fe León MD [address] [place] [phone] Phone: tel: fax: [facility] Referral ID Status Reason Start Date Expiration Date V isits Requested Visits Authorized [id number] Pending Review 08/01/2025 08/01/2026 1 1 Reason for Visit * Imaging (Routine) - Pending Review Specialty Diagnoses / Procedures Referred By Cristy guerra Referred To Contact Radiology Diagnoses Diverticulitis Procedures MR Abdomen wo and w Contrast Fe León MD [address] [address] Phone: tel: fax: [facility] Referral ID Status Reason Start Date Expiration Date V isits Requested Visits Authorized [id number] Pending Review 08/01/2025 08/01/2026 1 1 Encounter Details Date Type Department Care Team (Latest Contact Info) Description 08/04/2025 9:14 AM EDT - 08/04/2025 11:59 PM EDT Hospital Encounter [facility] MRI [address] [place] [address] Diverticulitis Discharge Disposition: Home or Self Care Social History Tobacco Use Types Packs/Day Years [...] care for your loved ones. For example, teacher early childhood development or elderly care for an older adult? [...] Date Recorded What is your living situation? Unrecognized valu e 10/31/2024 Interpersonal Safety Answer Date Record ed Physical Abuse Unrecognized value 03/20/2025 Verbal Abuse Unrecognized value 03/20/2025 Comments Unknown Sex and Gender Information [...] 03/20/2025 7:45 AM Ella [place] RN * Are you blind or do you have serious difficulty seeing, even when wearing glasses? Answer Date of Assessment Author No 03/20/2025 7:45 AM Ella [place] RN * Do you have serious difficulty walking or climbing stairs? Answer Date of Assessment Author No 03/20/2025 7:45 AM Ella [place] RN * Do you have serious difficulty [...] Ella Hargrove RN documented in this encounter Medications at Time of Discharge albuterol HFA (PROAIR HFA ; PROVENTIL HFA ; VENTOLIN HFA) 90 mcg/actuation inhaler Inhale 2 puffs by mouth every 6 (six) hours if needed for wheezing. apixaban (ELIQUIS) 5 mg tablet Take 1 tablet (5 mg total) by mouth 2 (two) times a day. atorvastatin (LIPITOR) 40 mg tablet TAKE 1 TABLET BY MOUTH EVERY DAY 90 tablet 06/21/2025 clopidogreL (PLAVIX) 75 mg tablet Take 1 tablet (75 mg total) by mouth 1 (one) time each day. diazePAM (VALIUM) 5 mg tabletIndications :Lumbar spondylosis Directions: Take 1 tab 2 hours prior to MRI, 1 tab 30 minutes prior to MRI. Please have someone drive you back and forth for the MRI. 2 tablet 07/05/2025 dilTIAZem CD (CARDIZEM CD) 240 mg 24 hr capsule Take 1 capsule (240 mg total) by mouth 1 (one) time each day. 90 each 1 05/07/2025 6 doxycycline (VIBRAMYCIN) 100 mg capsule Take 1 capsule (100 mg total) by mouth 2 (two) times a day. for 10 days 06/22/2025 DULoxetine (CYMBALTA) [address] capsule Take 1 capsule (20 mg total) by mouth 1 (one) time each day. Do not crush or chew. famotidine (PEPCID) 10 mg tablet Take 2 tablets (20 mg total) by mouth 2 (two) times a day. 120 tablet 03/23/2025 fluticasone propionate (FLONASE) 50 mcg/actuation nasal spray SPRAY 2 SPRAYS INTO EACH NOSTRIL DAILY FOR 30 DAYS 06/22/2025 furosemide (LASIX) 20 mg tablet Take 2 tablets (40 mg total) by mouth 1 (one) time each day in the morning AND 1 tablet (20 mg total) 1 (one) time each day in the evening. 270 tablet 3 06/06/2025 metoprolol succinate (TOPROL-XL) 50 mg 24 hr tablet Take 1 tablet (50 mg total) by mouth 2 (two) times a day. 180 tablet 2 08/03/2025 ondansetron (ZOFRAN) 4 mg tablet Take 1 tablet (4 mg total) by mouth every 8 (eight) hours if needed for nausea or vomiting. oxyCODONE (ROXICODONE) 5 mg immediate release tablet 06/25/2025 potassium chloride (KLOR-CON M20) 20 mEq CR [...] to dissolve, stir well and administer immediately). 03/27/2025 pregabalin (LYRICA) 150 mg capsule Take 1 capsule (150 mg total) by mouth 2 (two) times a day. Senexon-S 8.6-50 mg per tablet Take 1 tablet by mouth 2 (two) times a day. 05/02/2025 spironolactone (ALDACTONE) 25 mg tablet Take 1 tablet (25 mg total) by mouth 1 (one) time each day. 90 each 3 05/03/2025 sulfaSALAzine (AZULFIDINE EN-TABS) 500 mg EC tablet Take 1 tablet (500 mg total) by mouth 4 (four) times a day. Do not crush, chew, or split. traMADoL (ULTRAM) 50 mg tablet 06/14/2025 Trelegy Ellipta 100-62.5-25 mcg inhaler Inhale 1 puff (100 mcg total) by mouth 1 (one) time each day. documented as of this encounter Discharge Disposition Disposition Code Departure Means Destination Home or Self Care documented in this encounter Plan of Treatment Upcoming Encounters Date Type Department Care Team (Late st Contact Info) Description 08/15/2025 10:00 AM EDT Evaluation [address] [address] Yasmany Pope, PT 09/11/2025 11:15 AM EST Office Visit [facility] [place] [facility] [place] [address] [facility] [address] [place] [phone] Araseli Foster PA [address], [address] [place] [address] 11/13/2025 9:10 AM EST Office Visit [facility] [address] [facility] [address] [place] [phone] Tricia Montague, LOGAN [address] [place] [address] [address] [place] [phone] documented as of this encounter Procedures Procedure Name Priority Date/Time Associated Diagnosis Comments MR ABDOMEN WO AND W CONTRAST Routine 08/04/2025 10:36 AM EDT Diverticulitis documented in this encounter Results * MR Abdomen wo and w Contrast (08/04/2025 10:36 AM EDT) Anatomical Region Laterality Modality Body Magnetic Resonan ce 08/08/2025 7:18 AM EDT Impressions 08/08/2025 7:55 AM EDT The area of concern is not well included. There have been abnormalities in this area on multiple previous CT scans. I doubt suspicious interval change in the areas included. -------- FINAL REPORT -------- Dictated By: Ferny Del Rosario Dictated Date: 08/08/2025 07:18 ET Assigned Physician: Ferny Del Rosario Reviewed and Electronically Signed By: Ferny Del Rosario Signed Date: 08/08/2025 07:55 ET Workstation ID: [id number] Transcribed By: Self Edit Transcribed Date: 08/08/2025 07:18 ET Narrative 08/08/2025 7:55 AM EDT EXAMINATION: MRI ABDOMEN WITHOUT AND WITH IV CONTRAST CLINICAL INFORMATION: Diverticulitis. Possible abscess. COMPARISON: Portions of CT 03/20/25, portions of lumbar MRI 07/14/25, portions of CT 03/05/25 TECHNIQUE: Anatomic and fluid sensitive MR sequences of the abdomen were obtained on a high-field platform. PLEASE NOTE THE PELVIS WAS NOT INCLUDED. The area of the sigmoid colon is only partially included on some of the large [id number] localizing sequences. The area of concern on recent lumbar MR is not optimally evaluated Imaging before and after the IV administration of contrast. Amount of IV contrast: 15 mL Type of contrast: Dotarem Volume of contrast discarded: 0 mL FINDINGS: LIVER: The right lobe of the liver measures 13.7 cm. The liver contour is smooth. The background hepatic signal is homogeneous. There is no suspicious focal abnormality. BILIARY TRACT: There is at least one gallstone. There is no biliary dilation. MRCP: Not performed SPLEEN: The spleen measures 11.0 cm. No focal abnormality. PANCREAS: No suspicious abnormality. ADRENAL GLANDS: No suspicious abnormality. KIDNEYS: The dilation demonstrated on the collecting system of the left urinary tract on previous CT has resolved. There is no suspicious mass. GASTROINTESTINAL TRACT: The study does not include the region of the sigmoid colon. The lowest images included demonstrates some abnormal signal between the left psoas and the region of the distal colon. This corresponds to the area of concern on previous lumbar MRI. This area has been abnormal on multiple previous CT scans. The distal colon has been abnormal on multiple previous CT scans. I doubt suspicious interval change. ABDOMINAL WALL: No significant hernia is appreciated. LYMPHOVASCULAR STRUCTURES AND FLUID: There is no abdominal aortic aneurysm. There are no measurably enlarged lymph nodes. There are a few scattered nonspecific lymph nodes. There is a minimal amount of perihepatic fluid. MUSCULOSKELETAL: There are degenerative changes in the spine. VISUALIZED LOWER CHEST: There are signal abnormalities in the lower lungs on each side and there is at least a small amount of right pleural fluid. The heart appears enlarged. Procedure Note Ferny Del Rosario MD - 08/08/2025 EXAMINATION: MRI ABDOMEN WITHOUT AND WITH IV CONTRAST CLINICAL INFORMATION: Diverticulitis. Possible abscess. COMPARISON: Portions of CT 03/20/25, portions of lumbar MRI 07/14/25, portions of CT03/05/25 TECHNIQUE: Anatomic and fluid sensitive MR sequences of the abdomen were obtained fredy high- field platform. PLEASE NOTE THE PELVIS WAS NOT INCLUDED. The area of the sigmoid colon isonly partially included on some of the large [id number] localizingsequences. The area of concern on recent lumbar MR is not optimally evaluated Imaging before and after the IV administration of contrast. Amount of IV contrast: 15 mL Type of contrast: Dotarem Volume of contrast discarded: 0 mL FINDINGS: LIVER: The right lobe of the liver measures 13.7 cm. The liver contour issmooth. The background hepatic signal is homogeneous. There is no suspicious focal abnormality. BILIARY TRACT: There is at least one gallstone. There is no biliarydilation. MRCP: Not performed SPLEEN: The spleen measures 11.0 cm. No focal abnormality. PANCREAS: No suspicious abnormality. ADRENAL GLANDS: No suspicious abnormality. KIDNEYS: The dilation demonstrated on the collecting system of the lefturinary tract on previous CT has resolved. There is no suspicious mass. GASTROINTESTINAL TRACT: The study does not include the region of thesigmoid colon. The lowest images included demonstrates some abnormalsignal between the left psoas and the region of the distal colon. Thiscorresponds to the area of concern on previous lumbar MRI. This area hasbeen abnormal on multiple previous CT scans. The distal colon has beenabnormal on multiple previous CT scans. I doubt suspicious interval change. ABDOMINAL WALL: No significant hernia is appreciated. LYMPHOVASCULAR STRUCTURES AND FLUID: There is no abdominal aorticaneurysm. There are no measurably enlarged lymph nodes. There are a fewscattered nonspecific lymph nodes. There is a minimal amount ofperihepatic fluid. MUSCULOSKELETAL: There are degenerative changes in the spine. VISUALIZED LOWER CHEST: There are signal abnormalities in the lower lungson each side and there is at least a small amount of right pleural fluid.The heart appears enlarged. IMPRESSION: The area of concern is not well included. There have been abnormalities in this area on multiple previous CT scans.I doubt suspicious interval change in the areas included. -------- FINAL REPORT -------- Dictated By: Ferny Del Rosario Dictated Date: 08/08/2025 07:18 ET Assigned Physician: Ferny Del Rosario Reviewed and Electronically Signed By: Ferny Del Rosario Signed Date: 08/08/2025 07:55 ET Workstation ID: [id number] Transcribed By: Self Edit Transcribed Date: 08/08/2025 07:18 ET us Fe León MD IMG MRI PROCEDURES Final Re sult documented in this encounter Visit Diagnoses Diagnosis Diverticulitis Diverticulitis of colon (without mention of hemorrhage) documented in this encounter Administered Medications Inactive Administered Medications - up to 3 most recent administrations Medication Order MAR Action Action Date Dose Rate Site gadoterate meglumine (CLARISCAN, DOTAREM) injection 15 mL 15 mL, intravenous, Once in imaging, Starting on 08/04/25 at 1029, For 1 dose Given 08/04/2025 10:36 AM EDT 15 mL documented in this encounter Orders Medications Ordered That Richard ht Not Have Been Administered Count Last Ordered Date First Ordered Date gadoterate meglumine (LESVIA CAN, DOTAREM) injection 15 mL 1 08/04/2025 documented in this encounter Care Teams Software Engineer Advisor Relationship Specialty Start Date End Date Fe León MD [address] [address] PCP - General Internal Medicine 01/30/25 documented as of this encounter
--- NOTE | 2025-08-10 11:10 | A.OFFVIS_ITS ---
Vital Signs 08/10/25 11:11 08/10/25 11:47 Height 5 ft 3 in Weight 149 lb BMI 26.4 BP 115/78 Blood Pressure Location Lt brachial Position Sitting Respiration 16 Pulse 80 Pulse Source Pulse Oximeter Pulse Oximetry (%) 80 L 93 Oxygen Delivery Method Room Air Room Air Intake Visit Reasons: Left arm pain s/p crushing incident Nursing Manager Required: No Accompanied by: Self / Same As Patient Allergies levofloxacin (Levaquin) Allergy (Severe, Verified 08/10/25 11:11) vomiting HPI Comments Details: The patient is a 70-year-old female presenting with 1 year of left arm pain. The pain has been persistent since October and is primarily located in the left arm, although the patient reports experiencing pain throughout her body. The patient is scheduled for a tentative surgery on September 06 in [place] to address a nerve injury, which has been identified as the source of her arm pain. The patient experienced a fall that resulted in a broken left shoulder and subsequent emergency surgery, during which she had no blood flow to the affected area until the bone was lifted. Despite the surgery, the patient has developed hand paralysis and continues to experience significant pain, particularly in the mornings and evenings. She has been attending hand therapy for a month, but reports no significant improvement in her condition. The patient has a history of neuropathy and has been on Lyrica for years, which she reports as ineffective for her current pain. Attempts to switch to gabapentin were unsuccessful, and other pain medications like tramadol have also been ineffective. The patient experiences peripheral edema, for which she takes Lasix and spironolactone. She reports swelling in her ankles, particularly when wearing shoes, and manages this by elevating her feet regularly. The patient has atrial fibrillation and is on blood thinners, specifically Eliquis. She has undergone steroid injections in her knees without complications and is considering similar interventions for her arm pain, pending surgical outcomes. - Onset: Pain began in October. - Quality: Persistent and severe, worsens in the morning and evening. - Location: Primarily in the left arm, with throbbing in the hand and fingers. - Radiation: Pain extends from the arm to the hand. - Exacerbating factors: Physical activity and exercises increase pain. - Relieving factors: Elevation and use of a therapeutic apparatus provide some relief. - Interference: Pain disrupts sleep and daily activities. - Affect: Pain causes emotional distress, leading to crying episodes. - Analgesia: Current medication includes oxycodone 5 mg, used sparingly due to concerns about dependency. - Adverse Effects: Cannot tolerate aspirin, ibuprofen, or acetaminophen due to gastrointestinal issues. - Activities of Daily Living: Pain affects ability to perform tasks such as dressing and cooking. - Aberrant Drug Related Behaviors: No evidence of misuse, patient is cautious about medication use. [facility] Medical History Afib Lower extremity edema Adrenal insufficiency RSV (respiratory syncytial virus infection) Atelectasis Hypercalciuria Hypogammaglobulinemia Vasomotor rhinitis Osteoporosis GERD (gastroesophageal reflux disease) HLD (hyperlipidemia) HTN (hypertension) History of CVA (cerebrovascular accident) Chronic cough Seropositive rheumatoid arthritis Chronic rheumatic arthritis Chronic respiratory failure COPD (chronic obstructive pulmonary disease) case management patient Cystic fibrosis carrier Surgical History Hx of shoulder surgery History of surgery Family History Son Cystic fibrosis Social History Household Members: None Alcohol intake: current Alcohol intake frequency: holidays/special occasions only Patient Tobacco Use Status: Former Tobacco user Tobacco use type: Cigarette Cigarettes Per Day: 10 Years Smoked: 20 e-Cigarette/Vaping Use: Never Used Review of Systems Narrative - Musculoskeletal: Reports persistent left arm pain and hand paralysis. - Neurological: Reports numbness and tingling in the hand. - Cardiovascular: Reports atrial fibrillation, denies chest pain. - Gastrointestinal: Reports intolerance to aspirin, ibuprofen, and acetaminophen due to vomiting. - Dermatological: Denies swelling or discoloration in the arm, reports swelling in legs. Physical Exam Exam Exam: General: awake, alert, oriented. Answers questions appropriately. Fully engaged in examination. Skin: warm, dry, intact HEENT: Normocephalic. Hearing intact. Cardiac: External chest normal in appearance. Respiratory: No cough, audible wheezing or stridor. Abdomen: without gross distension. MS: LUE: limited motion of fingers. muscle atrophy. cool to touch compared to the right. good cap refill, strong radial pulse. Neurological: Oriented to person, place, time and situation. Thought process intact. No gait abnormalities appreciated. Psychiatric: Appropriate mood and affect. Good judgment and insight. Vital Signs: Last Vital Signs Pulse 80 08/10/25 11:11 Resp 16 08/10/25 11:11 BP 115/78 08/10/25 11:11 Pulse Ox 93 08/10/25 11:47 Oxygen Delivery Method Room Air 08/10/25 11:47 BMI result Body Mass Index 26.4 Assessment & Plan Assessment & Plan (1) CRPS (complex regional pain syndrome), type II, upper: Code(s): G56.40 - Causalgia of unspecified upper limb Category: Medical Plan The patient is scheduled for a tentative surgery on September 06 in [place] to address the nerve injury, which is believed to be the source of her left arm pain. Pending the outcome of the surgery, further interventions such as steroid injections may be considered to manage the pain associated with Complex Regional Pain Syndrome (CRPS). The patient is advised to continue with hand therapy. The patient is also advised to maintain communication with her healthcare providers regarding the management of atrial fibrillation and the use of blood thinners, especially in the context of upcoming surgical procedures. If the surgery does not proceed or is deemed unnecessary, the patient may explore interventional pain management options, including a stellate ganglion block versus potential spinal cord stimulator, after consulting with her healthcare team. Patient was informed and verbally consented to the use of an ambient scribe for clinic note documentation during this visit. Patient Instructions: - Continue with hand therapy as advised. - Take medications as prescribed - Maintain communication with healthcare providers regarding atrial fibrillation management and blood thinner use. - Follow up with the surgeon in [place] on August 29 for further evaluation and surgical planning. - Contact the office if surgery is not pursued to discuss alternative pain management options. Coding Level of Care Code New Pt Level 4 (32997) Complex EM visit Add On G2211 Diagnoses CRPS (complex regional pain syndrome), type II, upper G56.40
[2025-08-10 11:11] VITALS: BP 115/78; PULSE 80; RESP 16; O2SAT 80; BMI 26.4
[2025-08-10 11:47] VITALS: O2SAT 93
--- OUTSIDE RECORDS SUMMARY | 2025-08-10 13:24 | XMS_ITS | Encounter Summary ---
Author Organization [facility] Address [address] [place] [address] Care Team Providers Care Patrol Commander Name Role Phone Fe León MD Primary Care Provider Encounter Details Date Type Department Care Team (Late st Contact Info) Description 11/18/2024 Lab Requisition [facility] - Main Lab [address] [place] [address] Dayanara Barber MD [address] [address] Unspecified atrial fibrillation (CMS/HCC V24, CMS/HCC V28) [...] ones. For example, child and family services worker or elderly care for an older [...] Date Record ed Physical Abuse Unrecognized value 10/01/2024 Verbal Abuse Unrecognized value 10/01/2024 Comments Unknown Sex and Gender Information [...] Assessment Author No 09/30/2024 6:40 PM Barb Andreson RN * Are you blind or do [...] Info) Description 08/15/2025 10:00 AM EDT Evaluation [facility] [address] [phone] Yasmany Pope, PT 09/11/2025 11:15 AM EST Office Visit Neurosurgery [facility] 175 [facility] 300 [place] [phone] Araseli Foster PA 175 [facility] 300 [place] [address] 11/13/2025 9:10 AM EST Office Visit [facility] 154 [address] [facility] 154 [place] [phone] Tricia Montague, RIP MACHINE OPERATOR [address] [place] [address] Dr Tobin [address] [place] [address] [place] [phone] documented as of this encounter Visit Diagnoses [...] documented as of this encounter Care Teams Patrol Commander Relationship Specialty Start Date End Date Fe León MD 75 [facility] [address] [place] [address] PCP - General Internal Medicine 01/30/25 documented as of this encounter
--- OUTSIDE RECORDS SUMMARY | 2025-08-10 13:24 | XMS_ITS | Encounter Summary ---
Author Organization [facility] Address [address] [place] [address] Care Team Providers Care Experimental Psychologist Name Role Phone Fe León MD Primary Care Provider Encounter Details Date Type Department Care Team (Late st Contact Info) Description 01/08/2025 Lab Requisition [facility] - Main Lab [address] [place] [address] Ashley Gonzáles MD [address] [place] [address] Essential (primary) hypertension; Hyperlipidemia, unspecified; Shortness of [...] care for your loved ones. For example, rn maternal child or elderly care for an [...] Info) Description 08/15/2025 10:00 AM EDT Evaluation [facility] [address] [phone] Yasmany Pope, PT 09/11/2025 11:15 AM EST Office Visit Neurosurgery [facility] 175 [facility] 300 [place] [phone] Araseli Foster PA 175 [facility] 300 [place] [address] 11/13/2025 9:10 AM EST Office Visit [facility] 154 [address] [facility] 154 [place] [phone] Tricia Montague, LOGAN [address] [place] [address] Dr Mahad [address] [place] [phone] documented as of this encounter Procedures Procedure [...] mmol/L LAB CHEMISTRY METHOD 01/08/2025 12:11 PM [facility] Potassium 4.0 3.5 - 5.5 mmol/L LAB CHEMISTRY METHOD 01/08/2025 12:11 PM [facility] Chloride 103 96 - 110 mmol/L LAB CHEMISTRY METHOD 01/08/2025 12:11 PM [facility] CO2 32 21 - 32 mmol/L LAB CHEMISTRY METHOD 01/08/2025 12:11 PM [facility] Anion Gap 5 3 - 11 LAB CHEMISTRY METHOD 01/08/2025 12:11 PM [facility] Glucose 88 70 - 100 mg/dL LAB CHEMISTRY METHOD 01/08/2025 12:11 PM [facility] BUN 10 5 - 25 mg/dL LAB CHEMISTRY METHOD 01/08/2025 12:11 PM [facility] Creatinine 0.52 0.50 - 1.10 mg/dL LAB CHEMISTRY METHOD 01/08/2025 12:11 PM [facility] eGFR 102 >=60 mL/min/1. 73m2 LAB CHEMISTRY METHOD 01/08/2025 12:11 PM [facility] Comment:Calculation based on the Chronic Kidney Disease Epidemiology Collaboration (CKD-EPI) equation refit without adjustment for race. BUN/Creatinine Ratio 19.2 LAB CHEMISTRY METHOD 01/08/2025 12:11 PM EDT [facility] Calcium 9.5 8.5 - 10.5 mg/dL LAB CHEMISTRY METHOD 01/08/2025 12:11 PM EDT [facility] Blood Venous blood specimen / Unknown Venipuncture / Unknown 01/08/2025 6:30 AM EDT 01/08/2025 11:21 AM EDT us Ashley Gonzáles MD LAB BLOOD ORDERABLES Final Resul t [facility] [address] [place] [address], [place] [phone] * (ABNORMAL) Complete blood count (01/08/2025 6:30 AM EDT) WBC 4.5(L) 4.8 - 10.8 K/mcL LAB HEMETOLOGY METHOD 01/08/2025 12:19 PM [facility] RBC 3.00(L) 3.80 - 4.80 M/mcL LAB HEMETOLOGY METHOD 01/08/2025 12:19 PM [facility] Hemoglobin 9.4(L) 11.5 - 16.0 g/dL LAB HEMETOLOGY METHOD 01/08/2025 12:19 PM [facility] Hematocrit 29.8(L) 35.0 - 47.0 % LAB HEMETOLOGY METHOD 01/08/2025 12:19 PM EDT [facility] MCV 98.7(H) 79.0 - 98.0 FL LAB HEMETOLOGY METHOD 01/08/2025 12:19 PM [facility] MCH 31.1 27.0 - 32.0 pcg LAB HEMETOLOGY METHOD 01/08/2025 12:19 PM [facility] MCHC 31.5(L) 32.0 - 37.0 g/dL LAB HEMETOLOGY METHOD 01/08/2025 12:19 PM EDT [facility] RDW 14.2 11.0 - 15.0 % LAB HEMETOLOGY METHOD 01/08/2025 12:19 PM EDT [facility] Platelets 187 130 - 400 K/mcL LAB HEMETOLOGY METHOD 01/08/2025 12:19 PM EDT [facility] MPV 11.2(H) 7.0 - 11.0 FL LAB HEMETOLOGY METHOD 01/08/2025 12:19 PM EDT [facility] NRBC 0.0 <1.0 % LAB HEMETOLOGY METHOD 01/08/2025 12:19 PM EDT [facility] NRBC Absolute 0.00 <0.10 K/mcL LAB HEMETOLOGY METHOD 01/08/2025 12:19 PM EDT [facility] Blood Venous blood specimen / Unknown Venipuncture / Unknown 01/08/2025 6:30 AM EDT 01/08/2025 11:21 AM EDT us Ashley Gonzáles MD LAB BLOOD ORDERABLES Final Resul t [facility] [address] [place] [address], documented in this encounter Visit Diagnoses Diagnosis [...] documented as of this encounter Care Teams Experimental Psychologist Relationship Specialty Start Date End Date Fe León MD [address] [phone] PCP - General Internal Medicine 01/30/25 documented as of this encounter
--- OUTSIDE RECORDS SUMMARY | 2025-08-10 13:24 | XMS_ITS | Encounter Summary ---
Author Organization [facility] Address [address] [place] [address] Care Team Providers Care Space Operations Officer Name Role Phone Fe León MD Primary Care Provider Encounter Details Date Type Department Care Team (Late st Contact Info) Description 11/11/2024 Lab Requisition [facility] - Main Lab [address] [place] [address] Dayanara Barber MD [address] [phone] Unspecified atrial fibrillation (CMS/HCC V24, CMS/HCC V28) [...] care for your loved ones. For example, residential child care counselor or elderly care for an older [...] Entry Date Author No 09/30/2024 6:40 PM Brab Anderson RN documented in this encounter Plan of Treatment Upcoming Encounters Date Type Department Care Team (Late st Contact Info) Description 08/15/2025 10:00 AM EDT Evaluation [facility] [address] [phone] Yasmany Pope, PT 09/11/2025 11:15 AM EST Office Visit Neurosurgery [facility] 175 [facility] 300 [place] [phone] Araseli Foster PA 175 [facility] 300 [place] [address] 11/13/2025 9:10 AM EST Office Visit [facility] 154 300 [facility] 154 [place] [phone] Tricia Montague, ADOLESCENT PSYCHIATRIST [address] [place] [address] Dr Mahad [address] [place] [phone] documented as of this encounter Procedures Procedure Name Priority Date/Time Associated Diagnosis Comments COMPLETE BLOOD COUNT Routine 11/13/2024 6:18 AM EST Unspecified atrial fibrillation (CMS/HCC) BASIC METABOLIC PANEL Routine 11/13/2024 6:18 AM EST Unspecified atrial fibrillation (CMS/HCC) documented in this encounter Results * (ABNORMAL) Basic metabolic panel (11/13/2024 6:18 AM EST) Sodium 138 133 - 145 mmol/L LAB CHEMISTRY METHOD 11/13/2024 9:56 AM [facility] Potassium 4.1 3.5 - 5.5 mmol/L LAB CHEMISTRY METHOD 11/13/2024 9:56 AM [facility] Chloride 102 96 - 110 mmol/L LAB CHEMISTRY METHOD 11/13/2024 9:56 AM [facility] CO2 33(H) 21 - 32 mmol/L LAB CHEMISTRY METHOD 11/13/2024 9:56 AM [facility] Anion Gap 3 3 - 11 LAB CHEMISTRY METHOD 11/13/2024 9:56 AM [facility] Glucose 89 70 - 100 mg/dL LAB CHEMISTRY METHOD 11/13/2024 9:56 AM [facility] BUN 7 5 - 25 mg/dL LAB CHEMISTRY METHOD 11/13/2024 9:56 AM [facility] Creatinine 0.50 0.50 - 1.10 mg/dL LAB CHEMISTRY METHOD 11/13/2024 9:56 AM [facility] eGFR 103 >=60 mL/min/1. 73m2 LAB CHEMISTRY METHOD 11/13/2024 9:56 AM [facility] Comment:Calculation based on the Chronic Kidney Disease Epidemiology Collaboration (CKD-EPI) equation refit without adjustment for race. BUN/Creatinine Ratio 14.0 LAB CHEMISTRY METHOD 11/13/2024 9:56 AM [facility] Calcium 9.1 8.5 - 10.5 mg/dL LAB CHEMISTRY METHOD 11/13/2024 9:56 AM [facility] Blood Venous blood specimen / Unknown Venipuncture / Unknown 11/13/2024 6:18 AM EST 11/13/2024 9:23 AM EST us Dayanara Barber MD LAB BLOOD ORDERABLES Fin al Result [facility] [address] [place] [address], * (ABNORMAL) Complete blood count (11/13/2024 6:18 AM EST) WBC 6.7 4.8 - 10.8 K/mcL LAB HEMETOLOGY METHOD 11/13/2024 9:35 AM [facility] RBC 2.90(L) 3.80 - 4.80 M/mcL LAB HEMETOLOGY METHOD 11/13/2024 9:35 AM [facility] Hemoglobin 9.1(L) 11.5 - 16.0 g/dL LAB HEMETOLOGY METHOD 11/13/2024 9:35 AM [facility] Hematocrit 29.0(L) 35.0 - 47.0 % LAB HEMETOLOGY METHOD 11/13/2024 9:35 AM [facility] MCV 101.4(H) 79.0 - 98.0 FL LAB HEMETOLOGY METHOD 11/13/2024 9:35 AM [facility] MCH 31.8 27.0 - 32.0 pcg LAB HEMETOLOGY METHOD 11/13/2024 9:35 AM [facility] MCHC 31.4(L) 32.0 - 37.0 g/dL LAB HEMETOLOGY METHOD 11/13/2024 9:35 AM EST [facility] RDW 16.1(H) 11.0 - 15.0 % LAB HEMETOLOGY METHOD 11/13/2024 9:35 AM EST [facility] Platelets 297 130 - 400 K/mcL LAB HEMETOLOGY METHOD 11/13/2024 9:35 AM EST [facility] MPV 11.4(H) 7.0 - 11.0 FL LAB HEMETOLOGY METHOD 11/13/2024 9:35 AM EST [facility] NRBC 0.0 <1.0 % LAB HEMETOLOGY METHOD 11/13/2024 9:35 AM EST [facility] NRBC Absolute 0.00 <0.10 K/mcL LAB HEMETOLOGY METHOD 11/13/2024 9:35 AM [facility] Blood Venous blood specimen / Unknown Venipuncture / Unknown 11/13/2024 6:18 AM EST 11/13/2024 9:23 AM EST us Dayanara Barber MD LAB BLOOD ORDERABLES Fin al Result [facility] [address] [place] [address], documented in this encounter Visit Diagnoses Diagnosis [...] documented as of this encounter Care Teams Space Operations Officer Relationship Specialty Start Date End Date Fe León MD 75 [facility] [address] [place] [address] PCP - General Internal Medicine 01/30/25 documented as of this encounter
--- OUTSIDE RECORDS SUMMARY | 2025-08-10 13:24 | XMS_ITS | Clinical Summary ---
Author Organization [address] [place] [address] [place] [phone] Phone Care Team Providers Care Front End Engineer Name Role Phone Fe León MD Primary Care Provider Allergies Active Allergy Reactions Criticality Noted Date Comments Benazepril Nausea And Vomiting High 01/30/2025 Levofloxacin Swelling High 03/21/2018 nauseous Medications [...] if needed for nausea or vomiting. Active famotidine (PEPCID) 10 mg tablet Take [...] Tablet may be swallowed whole (do not crush/chew/suc k on) OR broken in half and each [...] mouth 2 (two) times a day. Active furosemide (LASIX) 20 mg tablet Take [...] EVERY DAY 90 tablet 06/21/20 25 Active doxycycline (VIBRAMYCIN) 100 mg capsule Take 1 capsule (100 mg total) by mouth 2 (two) times a day. for 10 days 06/22/20 25 Active fluticasone propionate (FLONASE) 50 mcg/actuation nasal spray SPRAY 2 SPRAYS INTO EACH NOSTRIL DAILY FOR 30 DAYS 06/22/20 25 Active oxyCODONE (ROXICODONE) 5 mg immediate release tablet 06/25/20 25 Active Senexon-S 8.6-50 mg per tablet Take 1 tablet by mouth 2 (two) times a day. 05/02/20 25 Active traMADoL (ULTRAM) 50 mg tablet 06/14/20 25 Active diazePAM (VALIUM) 5 mg tabletIndicatio ns:Lumbar spondylosis Directions: Take 1 tab 2 hours prior to MRI, 1 tab 30 minutes prior to MRI. Please have someone drive you back and forth for the MRI. 2 tablet 07/05/20 25 Active metoprolol succinate (TOPROL-XL) 50 mg 24 hr tablet Take 1 tablet (50 mg total) by mouth 2 (two) times a day. 180 tablet 2 08/03/20 25 Active metoprolol succinate (TOPROL-XL) 25 mg 24 hr tablet Take 3 tablets (75 mg total) by mouth 1 (one) time each day. Do not crush or chew. 90 each 03/24/20 25 025 Discontinued metoprolol succinate (TOPROL-XL) 50 mg 24 hr tablet TAKE 1 TABLET BY MOUTH EVERY DAY. DO NOT CRUSH OR CHEW. 180 tablet 2 08/03/20 25 025 Discontinued Active Problems Problem Noted Date Diagnosed Date Lumbar spondylosis 07/05/2025 Assessment & Plan (07/05/2025 12:42 PM EDT): Patient follows up in the office today with a new issue concerning severe low back pain x 2 months. We had previously seen her for left hand weakness, brachial plexus injury, she was referred to [facility], s/p fall 11/11, humerus fracture with ORIF. She has follow-up with [facility] neurosurgery end of the month. She states for the last 2 months she has had significant difficulty walking even with her walker, while she is walking her back pain gets to a 10/10, her legs tighten up and feel like cement, feel like they will give out on her. She is afraid she will fall. She does have history of neuropathy in her feet, recent lower extremity edema, is on water pills. They cause her to have urinary urgency and frequency, wears pads or diapers, has accidents at night, denies saddle anesthesia. She states prior to 2 months ago she did have some back pain but it was not severe, she was able to walk outside, do errands with her walker. She will get burning in the anterior thighs with walking. At times has shooting left calf pain. We looked back she had lumbar spine MRI 2016 at [facility], at that time had mild-moderate L4-5 stenosis. We looked at some of her recent CT abdomen pelvis, CTA, she had T12 kyphoplasty, states it was a bad experience, it took her 6 months to recover, she also has superior endplate compression deformity L2 >L3, states they offered her kyphoplasty in the past for that L2 fracture, she did not want to pursue procedure. She has severe fear of anesthesia, states she had trouble with anesthesia in the past, seizure. She also has severe anxiety with CAT scans and MRIs, does okay if she has Valium. She had a recent bone density testing at [address] [place] [address] [facility], was told she has osteoporosis. Ms. Jolley has severe low back pain is getting worse with time, difficulty walking, subjective leg weakness, shooting pain into the left calf. She has been going to physical therapy for her left hand weakness, tries to stay active and walk is much as she can tolerate. She would like to get a lumbar spine MRI, I have sent in prescription for Valium to her pharmacy. In the meantime I asked her to get thoracic and lumbar x-rays, given that she has pain in the lower thoracic and lower lumbar regions, history of osteoporosis, rule out any new fractures. All questions answered. Calculus of gallbladder with out cholecystitis without obstruction 04/24/2025 Chronic diastolic heart failure (CMS/HCC V24, CM S/[facility] V28) 03/27/2025 Assessment & Plan (06/06/2025 9:56 [...] 02/10/2025 Brachial plexopathy 01/30/2025 Assessment & Plan (07/05/2025 12:25 PM EDT): Pt has seen Dr. Jamie Grady, [facility], she states they did an EMG, they feel her issue is brachial plexus injury and nerve damage from her elbow surgery, with time the nerves may heal and her left hand function and strength may improve. She follows up again with them at the end of the month. She has been going to hand OT, sees some improvement in the hand movement, is glad she went to see Dr. Grady. Assessment & Plan (01/30/2025 5:14 PM EDT): [...] spoke with patient, her daughter lives in [place] and she is willing to see Dr. Grady at [facility]. Referral will be sent. Cervical spondylosis 01/30/2025 [...] disorders 10/01/2024 Longstanding persistent atri al fibrillation (CMS/[facility] V24, CMS/HCC V28) 09/30/2024 Secondary hypercoagulable state (CMS/[facility] V24) 10 /05/2024 Hypotension 06/13/2024 SOB (shortness of breath) 06/13/2024 [...] as able. Chronic hypoxemic respirator y failure ([facility] V24, [facility] V28) 09/02/2023 Overview (09/06/2024): Last Assessment & Plan: Followed regularly by pulmonology, Paroxysmal A-fib ([facility] V24, [facility] V28) 08/18 Overview (09/06/2024): Last Assessment & [...] episodes of lightheadedness/near syncope. Chronic rheumatic arthritis (CMS/HCC V24, CMS/HC C V28) 11/11/2017 Fibromyalgia 11/11/2017 Peripheral neuropathy 11/11/2017 Peripheral vascular disease ([facility]24) 2017 Overview (09/06/2024): S/p stent r leg Last Assessment & Plan: Followed by vascular surgery; she remains on Plavix at their recommendation. 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 Resolved Problems Problem Noted Date Diagnosed Date Resolved Date Atrial fibrillation with rap id ventricular response ([facility] V24, [facility] V28) 09/30/202409/17 Celiac disease 11/11/2017 01/30/2025 Encounters Date Type Department Care Team Description 08/04/2025 9:14 AM EDT - 08/04/2025 11:59 PM EDT Hospital Encounter [facility] [address] [place] [phone] Diverticulitis Discharge Disposition: Home or Self Care 07/19/2025 12:45 PM EDT Evaluation [address] [phone] German Griffiths, PT Difficulty walking (Primary Dx) 07/17/2025 Results Follow-Up Neurosurgery [address] [phone] Araseli Foster PA 07/17/2025 Telephone Neurosurgery [facility] [address] [phone] Araseli Foster PA 07/14/2025 8:38 AM EDT - 07/14/2025 11:59 PM EDT Hospital Encounter [facility] [address] [place] [phone] Lumbar spondylosis Discharge Disposition: Home or Self Care 07/12/2025 11:10 AM EDT Consult [facility] [address] [place] [address] German Campbell MD Paroxysmal A-fib (CMS/HCC V24, CMS/HCC V28) (Primary Dx) 07/05/2025 11:15 AM EDT Office Visit Neurosurgery [facility] [address] [place] [phone] Araseli Foster PA Lumbar spondylosis (Primary Dx); Brachial plexopathy; History of vertebral compression fracture 06/25/2025 7:50 AM EDT - 06/25/2025 11:59 PM EDT Hospital Encounter [facility] Ortho Xray [address] [place] [address] Pain Discharge Disposition: Home or Self Care 06/14/2025 Telephone [facility] [address] [place] [phone] Tricia Montague NP 06/12/2025 Telephone [facility] [address] [place] [phone] Sarah Whitten MA 06/08/[address] [place] [address] Tricia Montague NP 06/06/2025 9:10 AM EDT Office Visit [facility] [address] [place] [phone] Tricia Montague NP Paroxysmal A-fib (CMS/HCC V24, CMS/HCC V28) (Primary Dx); Primary hypertension; Chronic diastolic heart failure (CMS/HCC V24, CMS/HCC V28) 05/28/2025 Telephone [facility] [address] [place] [address] Tariq Villalobos MD 05/22/2025 Telephone Neurosurgery [facility] [address] [place] [phone] Lacey Ledesma MA from Last 3 Months Immunizations Immunization Administration Dates Next Due Influenza trivalent, with [...] GI bleed SHO on CPAP Rheumatoid arthritis ([facility]/ C V24, [facility] V28) A-fib ([facility] V24, [facility] V28) Iron deficiency anemia secon anna to blood loss (chronic) COPD (chronic obstructive pu lmonary disease) ([facility] V24, [facility] V28) Aortic valve disorder 06/18/2021 Last Asses sment & Plan: Most recent echocardiogram was completed 06/08/2023 showing only mild aortic insufficiency; we will update an echocardiogram for surveillance purposes. Osteoporosis Social History Tobacco Use Types Packs/Day Years [...] Sign Reading Time Taken Comments Blood Pressure 100/60 07/12/2025 11:05 AM EDT Pulse 87 07/12/2025 11:05 AM EDT Temperature 36.4 C (97.5 F) 04/24/2025 9:40 AM EDT Respiratory Rate 18 04/12/2025 11:15 AM EDT Oxygen Saturation 87% 07/12/2025 11:05 AM EDT Inhaled Oxygen Concentration - - Weight 68 kg (150 lb) 07/12/2025 11:05 AM EDT Height 160 cm (5' 3 ) 07/12/2025 11:05 AM EDT Body Mass Index 26.57 07/12/2025 11:05 AM EDT Plan of Treatment Upcoming Encounters Date Type Department Care Team (Late st Contact Info) Description 08/15/2025 10:00 AM EDT Evaluation [facility] [address] [facility] [address] [place] [phone] Yasmany Pope, PT 09/11/2025 11:15 AM EST Office Visit [facility] [place] [address] [facility] [address] [place] [phone] Araseli Foster PA [address] [facility] [place] [address] 11/13/2025 9:10 AM EST Office Visit [facility] [address] [facility] [address] [place] [phone] Tricia Montague, BACKUP ADMINISTRATOR [address] [place] [address] Health Maintenance Due Date Last Done Comments [...] 03/26/2025, Additional history exists DTaP,Tdap,and Td Vaccines (5 - Td or Tdap) 09/16/2034 09/16/2024, 09/16/2024, [...] this topic Medical Devices Implanted Type Area Mine Manager Device Identifier Shelf Expiration Date Model / Serial / Lot Plate Humerus Proximal 103mm [place] Lft Ss - Sn/A - [id number] Implanted:Qty: 1 on 10/30/2024 by Jose Nash MD at [facility] Internal and External Fixation Left: Arm [employer] [id number] / N/A / N/A Screw Lcking Monoax 3.5x30mm Blunt Tip Ss [place] Prox Hum Fx - Sn/A - [id number] Implanted:Qty: 2 on 10/30/2024 by Jose Nash MD at [facility] Internal and External Fixation Left: Arm [facility] 2168.6030 / N/A / N/A Screw Lcking Monoax 3.5x38mm Blunt Tip Ss [place] Prox Hum Fx - Sn/A - [id number] Implanted:Qty: 1 on 10/30/2024 by Jose Nash MD at [facility] Internal and External Fixation Left: Arm [facility] 2168.6038 / N/A / N/A Screw Lcking Monoax 3.5x40mm Blunt Tip Ss [place] Prox Hum Fx - Sn/A - [id number] Implanted:Qty: 2 on 10/30/2024 by Jose Nash MD at [facility] Internal and External Fixation Left: [facility] 2168.6040 / N/A / N/A Screw Lcking Monoax 3.5x50mm Blunt Tip Ss [place] Prox Hum Fx - Sn/A - [id number] Implanted:Qty: 1 on 10/30/2024 by Jose Nash MD at [facility] Internal and External Fixation Left: Arm [facility] 2168.6050 / N/A / N/A Screw Nonlcking 3.5x26mm Ss [place] Sm Frag Fracture Sys - Sn/A - [id number] Implanted:Qty: 2 on 10/30/2024 by Jose Nash MD at [facility] Internal and External Fixation Left: [facility] 2179.3026 / N/A / N/A Screw Nonlcking 3.5x28mm Ss [place] Sm Frag Fracture Sys - Sn/A - [id number] Implanted:Qty: 2 on 10/30/2024 by Jose Nash MD at [facility] Internal and External Fixation Left: [facility] 2179.3028 / N/A / N/A Screw Nonlcking 3.5x30mm Ss [place] Sm Frag Fracture Sys - Sn/A - [id number] Implanted:Qty: 1 on 10/30/2024 by Jose Nash MD at [facility] Internal and External Fixation Left: Arm [facility] 2179.3030 / N/A / N/A Screw Lcking 4.0x50mm Cocr [place] Prox Hum Fracture Sys - Sn/A - [id number] Implanted:Qty: 1 on 10/30/2024 by Jose Nash MD at [facility] Internal and External Fixation Left: Arm [facility] 7168.4050 / N/A / N/A [place] Ax Locking Screw 3.5x44mm Blunt Tip Implanted:Qty: 3 on 10/30/2024 by Jose Nash MD at [facility] Left: Arm [facility] 2168.6044 / N/A / N/A [place] Ax Locking Screw 3.5x46mm Blunt Tip Implanted:Qty: 1 on 10/30/2024 by Jose Nash MD at [facility] Left: Arm [facility] 2168.6046 / N/A / N/A Procedures Procedure Name Priority Date/Time Associated Diagnosis Comments MR ABDOMEN WO AND W CONTRAST Routine 08/04/2025 10:36 AM EDT Diverticulitis MR LUMBAR SPINE WO CONTRAST Routine 07/14/2025 9:28 AM EDT Lumbar spondylosis ECG 12-LEAD Routine 07/12/2025 11:53 AM EDT Paroxysmal A-fib (CMS/HCC V24, CMS/HCC V28) EXTERNAL CLINICAL LAB Routine 07/03/2025 1:38 PM EDT XR SHOULDER 2+ VIEWS LEFT Routine 06/25/2025 10:14 AM EDT Pain BASIC METABOLIC PANEL Routine 06/11/2025 8:30 AM EDT Chronic diastolic heart failure (CMS/HCC V24, CMS/HCC V28) OCCULT BLOOD STOOL, GUAIAC STAT 03/05/2025 3:40 PM EDT from Last 3 Months or Most Recently Relevant to Health Maintenance Results * MR Abdomen wo and w [...] Signed Date: 08/08/2025 07:55 ET Workstation ID: [id number] Transcribed By: Self Edit Transcribed Date: 08/08/2025 [...] partially included on some of the large sszdz-ws-seal localizing sequences. The area of concern on [...] partially included on some of the large clcjq-dm-hohd localizingsequences. The area of concern on recent [...] Signed Date: 08/08/2025 07:55 ET Workstation ID: [id number] Transcribed By: Self Edit Transcribed Date: 08/08/2025 07:18 ET us Fe León MD IMG MRI PROCEDURES Final Re sult * MR Lumbar Spine wo Contrast (07/14/2025 9:28 AM EDT) Anatomical Region Laterality Modality L-spine, Spine Magnetic Resonan ce 07/16/2025 5:22 PM EDT Impressions 07/16/2025 7:26 PM EDT Transitional lumbosacral anatomy with partially sacralized L5 vertebral body. No acute fracture. Chronic fractures at T12, L2, L3, and the mid sacrum. Degenerative changes at L3-4 and L4-5 resulting in moderate spinal canal stenosis. No significant foraminal stenosis and lumbar spine. Suspected sigmoid diverticulitis and 4 cm left lower quadrant abscess. CT abdomen/pelvis recommended to further evaluate. -------- FINAL REPORT -------- Dictated By: AMRIK SARAVIA Dictated Date: 07/16/2025 17:22 ET Assigned Physician: AMRIK SARAVIA Reviewed and Electronically Signed By: AMRIK SARAVIA Signed Date: 07/16/2025 19:26 ET Workstation ID: [id number] Transcribed By: Self Edit Transcribed Date: 07/16/2025 19:19 ET Narrative 07/16/2025 7:26 PM EDT PROCEDURE: Lumbar spine MRI INDICATION: Pain TECHNIQUE: Multiplanar, multisequence MRI of the Lumbar spine Without contrast. COMPARISON: 08/03/2011 FINDINGS: Transitional lumbosacral anatomy with partially sacralized L5 vertebral body. Mild anterolisthesis at L4-5 related to degenerative facet arthropathy. Chronic fractures at T12, L2, and L3 with less than 50% height loss at each level. No retropulsion of bone present spinal canal. Chronic fracture deformity at the mid sacrum partially imaged. No acute fracture. No suspicious lytic/blastic lesion. Degenerative loss of normal disc height and signal throughout the lumbar spine with associated degenerative discogenic endplate change. Lower lumbar predominant degenerative facet arthritis, most pronounced at L3-4 and L4-5 on the right as well as on the left at L4-5. Conus medullaris is normal and terminates at T12-L1. No epidural collection or mass is seen within the spinal canal. Colonic diverticulosis with wall thickening at the sigmoid colon and 4 cm air and fluid collection adjacent to the sigmoid colon left lower quadrant. Paraspinal muscles are normal. Findings by level: L1-2: No foraminal or spinal canal stenosis L2-3: Diffuse disc bulge with endplate spurring. Mild right and no left foraminal stenosis. No spinal canal stenosis. L3-4: Bilateral facet arthropathy with ligamentum flavum thickening. Mild right and no left foraminal stenosis. Moderate spinal canal stenosis. L4-5: Mild anterolisthesis with posterior disc uncovering. Bilateral facet arthropathy. Mild left and no right foraminal stenosis. Moderate spinal canal stenosis. L5-S1: No focal disc protrusion, foraminal stenosis, or spinal canal stenosis. Procedure Note Amrik Saravia MD - 07/16/2025 PROCEDURE: Lumbar spine MRI INDICATION: Pain TECHNIQUE: Multiplanar, multisequence MRI of the Lumbar spine Withoutcontrast. COMPARISON: 08/03/2011 FINDINGS: Transitional lumbosacral anatomy with partially sacralized L5 vertebralbody. Mild anterolisthesis at L4-5 related to degenerative facet arthropathy. Chronic fractures at T12, L2, and L3 with less than 50% height loss ateach level. No retropulsion of bone present spinal canal. Chronicfracture deformity at the mid sacrum partially imaged. No acute fracture.No suspicious lytic/blastic lesion. Degenerative loss of normal disc height and signal throughout the lumbarspine with associated degenerative discogenic endplate change. Lower lumbar predominant degenerative facet arthritis, most pronounced atL3-4 and L4-5 on the right as well as on the left at L4-5. Conus medullaris is normal and terminates at T12-L1. No epiduralcollection or mass is seen within the spinal canal. Colonic diverticulosis with wall thickening at the sigmoid colon and 4 cmair and fluid collection adjacent to the sigmoid colon left lowerquadrant. Paraspinal muscles are normal. Findings by level: L1-2: No foraminal or spinal canal stenosis L2-3: Diffuse disc bulge with endplate spurring. Mild right and no leftforaminal stenosis. No spinal canal stenosis. L3-4: Bilateral facet arthropathy with ligamentum flavum thickening. Mildright and no left foraminal stenosis. Moderate spinal canal stenosis. L4-5: Mild anterolisthesis with posterior disc uncovering. Bilateralfacet arthropathy. Mild left and no right foraminal stenosis. Moderatespinal canal stenosis. L5-S1: No focal disc protrusion, foraminal stenosis, or spinal canalstenosis. IMPRESSION: Transitional lumbosacral anatomy with partially sacralized L5 vertebralbody. No acute fracture. Chronic fractures at T12, L2, L3, and the midsacrum. Degenerative changes at L3-4 and L4-5 resulting in moderate spinal canalstenosis. No significant foraminal stenosis and lumbar spine. Suspected sigmoid diverticulitis and 4 cm left lower quadrant abscess. CTabdomen/pelvis recommended to further evaluate. -------- FINAL REPORT -------- Dictated By: AMRIK SARAVIA Dictated Date: 07/16/2025 17:22 ET Assigned Physician: AMRIK SARAVIA Reviewed and Electronically Signed By: AMRIK SARAVIA Signed Date: 07/16/2025 19:26 ET Workstation ID: [id number] Transcribed By: Self Edit Transcribed Date: 07/16/2025 19:19 ET us Araseli ANDREWS IMG MRI PROCEDURES Final R esult * ECG 12 lead (07/12/2025 11:53 AM EDT) Ventricular Rate ECG 87 BPM GEMUSE Atrial Rate 250 BPM GEMUSE QRS Duration 78 ms GEMUSE Q-T Interval 356 ms GEMUSE QTc 428 ms GEMUSE R Romeo 64 degrees GEMUSE T Romeo 59 degrees GEMUSE ECG Interpretation Atrial fibrillation Abnormal ECG When compared with ECG of 06-MAR-2025 10:18, Atrial fibrillation has replaced Sinus rhythm QT has shortened Confirmed by Jose CAMPBELL JOHN ([id number]) on 07/12/2025 1:36:57 PM GEMUSE 07/12/2025 11:1 4 AM EDT 07/12/2025 1:36 PM EDT German Campbell MD ECG ORDERABLES Edited Result - Final GEMUSE * External clinical lab (07/03/2025 1:38 PM EDT) Historical Provider LAB BLOOD ORDERABLES Aundrea l Result * XR Shoulder 2+ Views Left (06/25/2025 10:14 AM EDT) Narrative RIS PACS/VR - 06/25/2025 10:14 AM EDT This order has been auto-finalized and does not contain a result. Jose Nash MD IMG XR PROCEDURES Final Resul t RIS PACS/VR * (ABNORMAL) Basic metabolic panel (06/11/2025 8:30 AM EDT) Glucose 146(H) 70 - 99 mg/dL [facility] [...] 4:06 AM EDT Performed at: 01 - [facility] [address] [id number] Playground Director: Nan Santiago MD, Phone: [phone] Tricia Montague NP LAB BLOOD ORDERABLES Final Resu lt Performing Organization Address City/[facility]/ZIP Co de Phone Number [facility] 1 * Occult blood stool, guaiac (03/05/2025 3:40 PM EDT) [facility] Occult Blood, Stool #1 Negative Negative 03/05/2025 5:08 PM EDT 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
--- OUTSIDE RECORDS SUMMARY | 2025-08-10 13:24 | XMS_ITS | Encounter Summary ---
Author Organization [facility] Address [address] [place] [address] Care Team Providers Care Social Sciences Lecturer Name Role Phone Fe León MD Primary Care Provider Encounter Details Date Type Department Care Team (Late st Contact Info) Description 01/14/2025 Lab Requisition [facility] - Main Lab [address] [place] [address] Ashley Gonzáles MD [address] [place] [address] Essential (primary) hypertension Social History Tobacco Use [...] your loved ones. For example, child life specialist or elderly care for an older [...] Info) Description 08/15/2025 10:00 AM EDT Evaluation [address] [phone] Yasmany Pope, PT 09/11/2025 11:15 AM EST Office Visit Neurosurgery [facility] [address] [facility] [address] [place] [phone] Araseli Foster PA 175 [facility] 300 [place] [address] 11/13/2025 9:10 AM EST Office Visit [facility] - [facility] 154 300 [facility] 154 [place] [phone] Tricia Montague, LOGAN [address] [place] [address] Dr Tobin 410 [place] [address] documented as of this encounter Procedures Procedure Name Priority Date/Time Associated Diagnosis Comments COMPLETE BLOOD COUNT Routine 01/15/2025 6:38 AM EDT Essential (primary) hypertension BASIC METABOLIC PANEL Routine 01/15/2025 6:38 AM EDT Essential (primary) hypertension documented in this encounter Results * Basic metabolic panel (01/15/2025 6:38 AM EDT) [facility] Sodium 140 133 - 145 mmol/L LAB [...] LAB CHEMISTRY METHOD 01/15/2025 10:31 AM EDT [facility] Calcium 9.3 8.5 - 10.5 mg/dL LAB CHEMISTRY METHOD 01/15/2025 10:31 AM EDT [facility] Blood Venous blood specimen / Unknown Venipuncture / Unknown 01/15/2025 6:38 AM EDT 01/15/2025 9:37 AM EDT us Ashley Gonzáles MD LAB BLOOD ORDERABLES Final Resul t [facility] [address] [place] [address], * (ABNORMAL) Complete blood count (01/15/2025 6:38 AM EDT) WBC 5.5 4.8 - 10.8 K/mcL LAB HEMETOLOGY METHOD 01/15/2025 10:36 AM [facility] RBC 2.90(L) 3.80 - 4.80 M/[facility] LAB HEMETOLOGY METHOD 01/15/2025 10:36 AM [facility] Hemoglobin 8.9(L) 11.5 - 16.0 g/dL LAB HEMETOLOGY METHOD 01/15/2025 10:36 AM [facility] Hematocrit 28.4(L) 35.0 - 47.0 % LAB HEMETOLOGY METHOD 01/15/2025 10:36 AM T [facility] MCV 99.0(H) 79.0 - 98.0 FL LAB HEMETOLOGY METHOD 01/15/2025 10:36 AM [facility] MCH 31.0 27.0 - 32.0 pcg LAB HEMETOLOGY METHOD 01/15/2025 10:36 AM [facility] MCHC 31.3(L) 32.0 - 37.0 g/dL LAB HEMETOLOGY METHOD 01/15/2025 10:36 AM EDT [facility] RDW 13.5 11.0 - 15.0 % LAB HEMETOLOGY METHOD 01/15/2025 10:36 AM EDT [facility] Platelets 243 130 - 400 K/mcL LAB HEMETOLOGY METHOD 01/15/2025 10:36 AM EDT [facility] MPV 11.7(H) 7.0 - 11.0 FL LAB HEMETOLOGY METHOD 01/15/2025 10:36 AM EDT [facility] NRBC 0.0 <1.0 % LAB HEMETOLOGY METHOD 01/15/2025 10:36 AM EDT [facility] NRBC Absolute 0.00 <0.10 K/mcL LAB HEMETOLOGY METHOD 01/15/2025 10:36 AM EDT [facility] Blood Venous blood specimen / Unknown Venipuncture / Unknown 01/15/2025 6:38 AM EDT 01/15/2025 9:33 AM EDT us Ashley Gonzáles MD LAB BLOOD ORDERABLES Final Resul t [facility] [address] [place] [address], documented in this encounter Visit Diagnoses Diagnosis Essential (primary) hypertension Unspecified essential hypertension documented in this encounter Additional Health Concerns Infection Onset Date Last Indicated Resolved Time Respiratory Rule-Out 02/10/2025 02/10/2025 025 6:58 AM EDT COVID-19 Rule-Out 02/10/2025 02/10/2025 02/10/2025 6:58 AM EDT Respiratory Rule-Out 02/10/2025 02/10/2025 025 6:58 PM EDT COVID-19 Rule-Out 02/10/2025 02/10/2025 02/10/2025 6:58 PM EDT Gastrointestinal Rule-Out 02/10/2025 02/10/20252025 8:59 AM EDT C. difficile Rule-Out 02/10/2025 [...] documented as of this encounter Care Teams Social Sciences Lecturer Relationship Specialty Start Date End Date Fe León MD 75 [facility] 1 [place] [address] PCP - General Internal Medicine 01/30/25 documented as of this encounter
--- OUTSIDE RECORDS SUMMARY | 2025-08-10 13:24 | XMS_ITS | Encounter Summary ---
Author Organization [facility] Address [address] [place] [address] Care Team Providers Care General Manager Name Role Phone Fe León MD Primary Care Provider [phone]- [phone] Encounter Details Date Type Department Care Team (Late st Contact Info) Description 01/20/2025 Lab Requisition [facility] - Main Lab [address] [facility] [address] [place] [address] Ashley Gonzáles MD [address] [place] [address] Essential (primary) hypertension Social History Tobacco Use [...] your loved ones. For example, early childhood associate or elderly care for an older adult? [...] Info) Description 08/15/2025 10:00 AM EDT Evaluation [address] [phone] Yasmany Pope, PT 09/11/2025 11:15 AM EST Office Visit Neurosurgery [facility] [address] [facility] [address] [place] [phone] Araseli Foster PA 175 [facility] 300 [place] [address] 11/13/2025 9:10 AM EST Office Visit [facility] - [facility] 154 300 [facility] 154 [place] [phone] Tricia Montague, LOGAN [address] [place] [address] Dr Tobin 410 [place] [address] documented as of this encounter Visit Diagnoses [...] documented as of this encounter Care Teams General Manager Relationship Specialty Start Date End Date Fe León MD 75 [facility] 1 [place] [address] PCP - General Internal Medicine 01/30/25 documented as of this encounter
--- OUTSIDE RECORDS SUMMARY | 2025-08-10 13:24 | XMS_ITS | Clinical Summary ---
Author Organization [facility] Address [address] [place] [address] Phone Care Team Providers Care Inspector Packer Name Role Phone Jean Paul Arteaga MD Primary Care Provider + Allergies No known active allergies Medications oxygen permeable sewer pipe cleaner Liqd by Miscellaneous route. 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) 07/13/2025 12:50 PM EDT - 07/13/2025 11:59 PM EDT Hospital Encounter [facility], Ultrasound [address] [place] [address] Jamie Grady MD Discharge Disposition: Home or Self Care 06/05/2025 10:45 AM EDT Office Visit [facility] Neurosurgery at [facility] [address] [facility], [address] [place] [address] Jamie Grady MD 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) 06/05/2025 10:00 AM EDT Office Visit [facility] Neurosurgery at [facility] [address] [facility], [address] [place] [address] Cindy Baig MD 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); Paresthesias in left hand 06/05/2025 Orders Only [facility] Neurosurgery [address] [facility] 7th [address], [address] [place] [address] Brianna Vazquez MA Left hand pain (Primary Dx) 05/22/2025 9:30 AM EDT Office Visit [facility] Neurosurgery at [facility] [address] [facility], [address] [place] [address] Jamie Grady MD Left hand pain (Primary [...] Department Care Team (Latest Contact Info) Description 08/21/2025 11:50 AM EST Pre-Admission Testing [facility] PRETEST[facility] [address] [place] [address] Jamie Grady MD [address] [place] [phone] [email or web address] 08/29/2025 10:15 AM EST Office Visit [facility] Neurosurgery at [facility] [address] [facility], [address] [place] [address] Jamie Grady MD [address] [place] [id number] [email or web address] 09/06/2025 Procedure Pass [facility] PERIOPERATIVE DEPT 2013 [place] [address] 09/06/2025 7:30 AM EST Hospital Encounter [facility] PERIOPERATIVE DEPT [address] [place] [address] Jamie Grady MD [address] [place] [id number] [email or web address] 09/06/2025 7:30 AM EST - 09/06/2025 9:12 AM EST Surgery [facility] PERIOPERATIVE DEPT [address] [place] [address] Jamie Grady MD [address] [place] [id number] [email or web address] RELEASE OR DECOMPRESSION NERVE ULNA 09/18/2025 11:45 AM EST Office Visit [facility] Neurosurgery at [facility] [address] [facility], [address] [place] [address] Jamie Grady MD [address] [place] [id number] [email or web address] Scheduled Procedures Name Priority Associated Diagnoses Date/Ti me RELEASE OR DECOMPRESSION NER VE ULNA Ulnar neuropathy 09/06/2025 7:30 AM EST Health Maintenance Due Date Last Done Comments [...] VACCINE (#1) 2025 COVID-19 VACCINE (1 - 2024-2 6 season) 2025 COLORECTAL CANCER SCREENING 03/05/2026 FOBT [...] this topic Medical Devices Not on file Procedures Procedure Name Priority Date/Time Associated Diagnosis Comments US UPPER EXTREMITY NON-VASCULAR LIMITED (LEFT) Routine 07/13/2025 2:29 PM EDT Left hand pain from Last 3 Months Results * US UPPER EXTREMITY NON-VASCULAR LIMITED (LEFT) (07/13/2025 2:29 PM EDT) Anatomical Region Laterality Modality Shoulder Left, Arm Left, Elb ow Left, Forearm Left, Wrist Left, Hand Left Ultrasound 07/13/2025 2:24 PM EDT Impressions 07/13/2025 4:53 PM EDT 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 ATTESTATION: I, Dr. Shawn Mejia as teaching physician, have reviewed the images for this case and if necessary edited the report originally created by Ambrose May. Narrative 07/13/2025 4:53 PM EDT US UPPER EXTREMITY NON-VASCULAR LIMITED (LEFT) Referring clinician's provided indication for this examination in [facility]: Other Indication (Please use free text); cubital tunnel versus trauma more proximally TECHNIQUE: Ultrasound of the left ulnar nerve. COMPARISON: None. FINDINGS: Thickening of the ulnar nerve in the cubital tunnel, and just proximal to this site. Remaining portions of the ulnar nerve are unremarkable. No soft tissue mass or evidence of extrinsic compression. Procedure Note Shawn Camp MD - 07/13/2025 US UPPER EXTREMITY NON-VASCULAR LIMITED (LEFT) Referring clinician's provided indication for this examination in [facility]:Other Indication (Please use free text); cubital tunnel versus trauma moreproximally TECHNIQUE: Ultrasound of the left ulnar nerve. COMPARISON: None. FINDINGS: Thickening of the ulnar nerve in the cubital tunnel, and just proximal tothis site. Remaining portions of the ulnar nerve are unremarkable. No softtissue mass or evidence of extrinsic compression. 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 ATTESTATION: I, Dr. Shawn Mejia as teaching physician, have reviewedthe images for this case and if necessary edited the report originallycreated by Ambrose May. Jamie Grady MD [facility] US EXTREMITY Final Result from Last 3 Months Insurance MEDICARE PART A & B AETNA O MEDICARE REPLACEMENT [facility] MEDICARE PART A & B AETNA PPO MEDICARE RE[facility]AC[facility] & B [place] B [facility] MEDICARE PART A & B [place] RE[place] [facility] RE[facility] MEDICARE PART A & B [place] PPO MEDICARE REPLACEMENT [facility] Care Teams Inspector Packer Relationship Specialty Start Date End Date Jean Paul Arteaga MD 24 [facility] Family Medicine & [place] [address] PCP - General Internal Medicine 05/25/17 Additional Source Comments The information contained in this document represents components of the legal health record. It is not the complete legal health record.[facility]
--- OUTSIDE RECORDS SUMMARY | 2025-08-10 13:24 | XMS_ITS | Encounter Summary ---
Author Organization [facility] Address [address] [place] [address] Care Team Providers Care Park Police Name Role Phone Fe León MD Primary Care Provider Encounter Details Date Type Department Care Team (Late st Contact Info) Description 11/07/2024 Lab Requisition [facility] - Main Lab [address] [facility] [address] [place] [address] Dayanara Barber MD [address] [phone] Unspecified atrial fibrillation (CMS/HCC V24, CMS/HCC V28) [...] Info) Description 08/15/2025 10:00 AM EDT Evaluation [facility] [address] [phone] Yasmany Pope, PT 09/11/2025 11:15 AM EST Office Visit Neurosurgery [facility] 175 [facility] 300 [place] [phone] Araseli Foster PA 175 [facility] 300 [place] [address] 11/13/2025 9:10 AM EST Office Visit [facility] - [facility] 154 300 [facility] 154 [place] [phone] Tricia Montague, ARCHITECTURAL TECHNICIAN [address] [place] [address] Dr Mahad 410 [place] [address] documented as of this encounter Procedures Procedure Name Priority Date/Time Associated Diagnosis Comments COMPLETE BLOOD COUNT Routine 11/07/2024 5:40 AM EST Unspecified atrial fibrillation (CMS/HCC) BASIC METABOLIC PANEL Routine 11/07/2024 5:40 AM EST Unspecified atrial fibrillation (CMS/HCC) documented in this encounter Results * (ABNORMAL) Basic metabolic panel (11/07/2024 5:40 AM EST) Sodium 139 133 - 145 mmol/L LAB CHEMISTRY METHOD 11/07/2024 10:54 AM [facility] Potassium 4.2 3.5 - 5.5 mmol/L LAB CHEMISTRY METHOD 11/07/2024 10:54 AM [facility] Chloride 100 96 - 110 mmol/L LAB CHEMISTRY METHOD 11/07/2024 10:54 AM [facility] CO2 37(H) 21 - 32 mmol/L LAB CHEMISTRY METHOD 11/07/2024 10:54 AM [facility] Anion Gap 2(L) 3 - 11 LAB CHEMISTRY METHOD 11/07/2024 10:54 AM [facility] Glucose 92 70 - 100 mg/dL LAB CHEMISTRY METHOD 11/07/2024 10:54 AM [facility] BUN 7 5 - 25 mg/dL LAB CHEMISTRY METHOD 11/07/2024 10:54 AM [facility] Creatinine 0.40(L) 0.50 - 1.10 mg/dL LAB CHEMISTRY METHOD 11/07/2024 10:54 AM [facility] eGFR 109 >=60 mL/min/1. 73m2 LAB CHEMISTRY METHOD 11/07/2024 10:54 AM [facility] Comment:Calculation based on the Chronic Kidney Disease Epidemiology Collaboration (CKD-EPI) equation refit without adjustment for race. BUN/Creatinine Ratio 17.5 LAB CHEMISTRY METHOD 11/07/2024 10:54 AM EST [facility] Calcium 9.2 8.5 - 10.5 mg/dL LAB CHEMISTRY METHOD 11/07/2024 10:54 AM [facility] Blood Venous blood specimen / Unknown Venipuncture / Unknown 11/07/2024 5:40 AM EST 11/07/2024 9:25 AM EST us Dayanara Barber MD LAB BLOOD ORDERABLES Fin al Result [facility] 299 [place] [address], * (ABNORMAL) Complete blood count (11/07/2024 5:40 AM EST) WBC 7.0 4.8 - 10.8 K/mcL LAB HEMETOLOGY METHOD 11/07/2024 10:25 AM [facility] RBC 2.60(L) 3.80 - 4.80 M/mcL LAB HEMETOLOGY METHOD 11/07/2024 10:25 AM [facility] Hemoglobin 8.2(L) 11.5 - 16.0 g/dL LAB HEMETOLOGY METHOD 11/07/2024 10:25 AM [facility] Hematocrit 26.1(L) 35.0 - 47.0 % LAB HEMETOLOGY METHOD 11/07/2024 10:25 AM [facility] MCV 99.2(H) 79.0 - 98.0 FL LAB HEMETOLOGY METHOD 11/07/2024 10:25 AM [facility] MCH 31.2 27.0 - 32.0 pcg LAB HEMETOLOGY METHOD 11/07/2024 10:25 AM [facility] MCHC 31.4(L) 32.0 - 37.0 g/dL LAB HEMETOLOGY METHOD 11/07/2024 10:25 AM EST [facility] RDW 15.9(H) 11.0 - 15.0 % LAB HEMETOLOGY METHOD 11/07/2024 10:25 AM [facility] Platelets 293 130 - 400 K/mcL LAB HEMETOLOGY METHOD 11/07/2024 10:25 AM EST [facility] MPV 11.7(H) 7.0 - 11.0 FL LAB HEMETOLOGY METHOD 11/07/2024 10:25 AM EST [facility] NRBC 0.0 <1.0 % LAB HEMETOLOGY METHOD 11/07/2024 10:25 AM EST [facility] NRBC Absolute 0.00 <0.10 K/mcL LAB HEMETOLOGY METHOD 11/07/2024 10:25 AM [facility] Blood Venous blood specimen / Unknown Venipuncture / Unknown 11/07/2024 5:40 AM EST 11/07/2024 9:25 AM EST Dayanara Barber MD LAB BLOOD ORDERABLES Fin al Result [facility] 299 [place] [address], documented in this encounter Visit Diagnoses Diagnosis [...] documented as of this encounter Care Teams Park Police Relationship Specialty Start Date End Date Fe León MD [address] [phone] PCP - General Internal Medicine 01/30/25 documented as of this encounter
--- OUTSIDE RECORDS SUMMARY | 2025-08-10 13:24 | XMS_ITS | Encounter Summary ---
Author Organization [facility] Address [address] [facility] [address] [place] [address] Phone Care Team Providers Care Edge Trimmer Name Role Phone Jean Paul Arteaga MD Primary Care Provider + Reason for Referral * Consultation (Elective) - Closed Specialty Diagnoses / Procedures Referred By Contac t Referred To Contact Neurology Diagnoses Encounter for consultation System, Provider Not In, PhD [address] [address] Phone: tel: Referral ID Status Reason Start Date Expiration Date Visits Re quested Visits Authorized [id number] Closed 06/24/2017 06/24/2018 1 1 Encounter Details Date Type Department Care Team (Latest Contact Info) Description 06/24/2017 Transcribe Orders [facility] Department of Neurology [address] [facility] 8th [address], [address] [place] [address] Romario Andino MD [address] [address] Encounter for consultation (Primary Dx) Social History [...] Description 08/21/2025 11:50 AM EST Pre-Admission Testing [facility] PRETEST[facility] [address] [place] [address] Jamie Grady MD [address] [place] [phone] [email or web address] 08/29/2025 10:15 AM EST Office Visit [facility] Neurosurgery at [facility] [address] [facility], [address] [place] [address] Jamie Grady MD [address] [place] [phone] [email or web address] 09/06/2025 Procedure Pass [facility] PERIOPERATIVE DEPT [address] [place] [address] 09/06/2025 7:30 AM EST Hospital Encounter [facility] PERIOPERATIVE DEPT [address] [place] [address] Jamie Grady MD [address] [place] [id number] [email or web address] 09/06/2025 7:30 AM EST - 09/06/2025 9:12 AM EST Surgery [facility] PERIOPERATIVE DEPT [address] [place] [address] Jamie Grady MD [address] [place] [id number] [email or web address] RELEASE OR DECOMPRESSION NERVE ULNA 09/18/2025 11:45 AM EST Office Visit [facility] Neurosurgery at [facility] [address] [facility], [address] [place] [address] Jamie Grady MD [address] [place] [id number] [email or web address] Scheduled Procedures Name Priority Associated Diagnoses Date/Ti me RELEASE OR DECOMPRESSION NER VE ULNA Ulnar neuropathy 09/06/2025 7:30 AM EST Scheduled Referrals Name Type Priority Associated Diagnoses Orde r Schedule Ambulatory referral to [facility] Neurology Outpatient Referral Routine Encounter for consultation Ordered: 06/24/2017 documented as of this encounter Visit Diagnoses Diagnosis Encounter for consultation- Primary Ulnar neuropathy Lesion of ulnar nerve documented in this encounter Care Teams Edge Trimmer Relationship Specialty Start Date End Date Jean Paul Arteaga MD 24 [facility] Family Medicine & [place] [address] PCP - General Internal Medicine 05/25/17 documented as of this encounter Additional Source Comments The information contained in this document represents components of the legal health record. It is not the complete legal health record.[facility]
--- OUTSIDE RECORDS SUMMARY | 2025-08-10 13:24 | XMS_ITS | Encounter Summary ---
Author Organization [facility] Address [address] [place] [address] Phone Care Team Providers Care Powerhouse Tender Name Role Phone Jean Paul Arteaga MD Primary Care Provider + Encounter Details Date Type Department Care Team (Late st Contact Info) Description 08/06/2025 Telephone [facility] [place] [facility] [address] [place] [address] Jamie Grady MD [address] [place] [phone] [email or web address] Social History Tobacco Use Types Packs/Day Years [...] on file documented as of this encounter Progress Notes * Lj Edmondson - 08/06/2025 1:50 PM EDT Patient called regarding scheduling pre-op appointment and tentative date for surgery. All requestswere completed. documented in this encounter Plan of Treatment Upcoming Encounters Date Type Department Care Team (Latest Contact Info) Description 08/21/2025 11:50 AM EST Pre-Admission Testing [facility] [address] [place] [address] Jamie Grady MD [address] [place] [phone] [email or web address] 08/29/2025 10:15 AM EST Office Visit [facility] [place] at [facility] [address] [place] [address] Jamie Grady MD [address] [place] [phone] [email or web address] 09/06/2025 Procedure Pass [facility] PERIOPERATIVE DEPT [address] [place] [address] 09/06/2025 7:30 AM EST Hospital Encounter [facility] PER[facility]PT [address] [place] [address] Jamie Grady MD [address] [place] [phone] [email or web address] 09/06/2025 7:30 AM EST - 09/06/2025 9:12 AM EST Surgery [facility]PT [address] [place] [address] Jamie Grady MD [address] [place] [phone] [email or web address] RELEASE OR DECOMPRESSION NERVE ULNA 09/18/2025 11:45 AM EST Office Visit [facility] [place] [facility] [address], [address] [place] [address] Jamie Grady MD [address] [place] [id number] [email or web address] Scheduled Procedures Name Priority Associated Diagnoses Date/Ti me RELEASE OR DECOMPRESSION NER VE ULNA Ulnar neuropathy 09/06/2025 7:30 AM EST documented as of this encounter Visit Diagnoses Not on filedocumented in this encounter Care Teams Powerhouse Tender Relationship Specialty Start Date End Date Jean Paul Arteaga MD [address] [facility] [place] [address] PCP - General Internal Medicine 05/25/17 documented as of this encounter Additional Source Comments The information contained in this document represents components of the legal health record. It is not the complete legal health record.[facility]
--- OUTSIDE RECORDS SUMMARY | 2025-08-10 13:24 | XMS_ITS | Encounter Summary ---
Author Organization [facility] Address [address] [place] [address] Care Team Providers Care Mobile Nurse Name Role Phone Fe León MD Primary Care Provider [phone] Encounter Details Date Type Department Care Team (Late st Contact Info) Description 03/28/[address] [facility] - Main Lab [address] [facility] [place] [address] Marvin Juarez MD [address] [place] [address] [address] [place], [address] Essential (primary) hypertension Social History Tobacco [...] loved ones. For example, early childhood associate teacher or elderly care for an older [...] Assessment Author No 03/20/2025 7:45 AM EDT Pepe Hargrove RN * Are you blind or [...] Info) Description 08/15/2025 10:00 AM EDT Evaluation [facility] [address] [facility] 350 [place] [phone] Yasmany Pope, PT 09/11/2025 11:15 AM EST Office Visit Neurosurgery [facility] [address] [facility] [address] [place] [phone] Araseli Foster PA 175 [facility] [address] [place] [address] 11/13/2025 9:10 AM EST Office Visit [facility] [address] [facility] 154 [place] [phone] Tricia Montague, LOGAN [address] [place] [address] [address] Tobin [address] [place] [address] documented as of this encounter Procedures Procedure Name Priority Date/Time Associated Diagnosis Comments COMPLETE BLOOD COUNT Routine 03/28/2025 5:24 AM EDT Essential (primary) hypertension COMPREHENSIVE METABOLIC PANEL Routine 03/28/2025 5:24 AM EDT Essential (primary) hypertension documented in this encounter Results * (ABNORMAL) Comprehensive metabolic panel (03/28/2025 5:24 AM EDT) Sodium 134 133 - 145 mmol/L LAB CHEMISTRY METHOD 03/28/2025 12:31 PM [facility] Potassium 4.7 3.5 - 5.5 mmol/L LAB CHEMISTRY METHOD 03/28/2025 12:31 PM [facility] Chloride 95(L) 96 - 110 mmol/L LAB CHEMISTRY METHOD 03/28/2025 12:31 PM [facility] CO2 32 21 - 32 mmol/L LAB CHEMISTRY METHOD 03/28/2025 12:31 PM [facility] Anion Gap 7 3 - 11 LAB CHEMISTRY METHOD 03/28/2025 12:31 PM [facility] Glucose 77 70 - 100 mg/dL LAB CHEMISTRY METHOD 03/28/2025 12:31 PM [facility] BUN 6 5 - 25 mg/dL LAB CHEMISTRY METHOD 03/28/2025 12:31 PM [facility] Creatinine 0.54 0.50 - 1.10 mg/dL LAB CHEMISTRY METHOD 03/28/2025 12:31 PM [facility] eGFR 101 >=60 mL/min/1. 73m2 LAB CHEMISTRY METHOD 03/28/2025 12:31 PM [facility] Comment:Calculation based on the Chronic Kidney Disease Epidemiology Collaboration (CKD-EPI) equation refit without adjustment for race. BUN/Creatinine Ratio 11.1 LAB CHEMISTRY METHOD 03/28/2025 12:31 PM [facility] Calcium 9.5 8.5 - 10.5 mg/dL LAB CHEMISTRY METHOD 03/28/2025 12:31 PM [facility] AST (SGOT) 25 10 - 42 unit/L LAB CHEMISTRY METHOD 03/28/2025 12:31 PM [facility] ALT (SGPT) 28 10 - 60 unit/L LAB CHEMISTRY METHOD 03/28/2025 12:31 PM [facility] Alkaline Phosphatase 113 42 - 121 unit/L LAB CHEMISTRY METHOD 03/28/2025 12:31 PM [facility] Total Protein 6.0 6.0 - 8.0 g/dL LAB CHEMISTRY METHOD 03/28/2025 12:31 PM [facility] Albumin 3.1(L) 3.2 - 5.0 g/dL LAB CHEMISTRY METHOD 03/28/2025 12:31 PM [facility] Total Bilirubin 0.5 0.0 - 1.4 mg/dL LAB CHEMISTRY METHOD 03/28/2025 12:31 PM [facility] Blood Venous blood specimen / Unknown Venipuncture / Unknown 03/28/2025 5:24 AM EDT 03/28/2025 10:08 AM EDT us Marvin Juarez MD LAB BLOOD ORDERABLES Final Resul t [facility] [address] [place] [address], * (ABNORMAL) Complete blood count (03/28/2025 5:24 AM EDT) WBC 6.2 4.8 - 10.8 K/mcL LAB HEMETOLOGY METHOD 03/28/2025 10:[address] [facility] RBC 4.00 3.80 - 4.80 M/mcL LAB HEMETOLOGY METHOD 03/28/2025 10:46 AM [facility] Hemoglobin 10.3(L) 11.5 - 16.0 g/dL LAB HEMETOLOGY METHOD 03/28/2025 10:46 AM [facility] Hematocrit 35.0 35.0 - 47.0 % LAB HEMETOLOGY METHOD 03/28/2025 10:46 AM [facility] MCV 87.5 79.0 - 98.0 FL LAB HEMETOLOGY METHOD 03/28/2025 10:46 AM [facility] MCH 25.8(L) 27.0 - 32.0 pcg LAB HEMETOLOGY METHOD 03/28/2025 10:46 AM [facility] MCHC 29.4(L) 32.0 - 37.0 g/dL LAB HEMETOLOGY METHOD 03/28/2025 10:46 AM [facility] RDW 21.6(H) 11.0 - 15.0 % LAB HEMETOLOGY METHOD 03/28/2025 10:46 AM [facility] Platelets 305 130 - 400 K/mcL LAB HEMETOLOGY METHOD 03/28/2025 10:46 AM [facility] MPV 10.9 7.0 - 11.0 FL LAB HEMETOLOGY METHOD 03/28/2025 10:46 AM [facility] NRBC 0.0 <1.0 % LAB HEMETOLOGY METHOD 03/28/2025 10:46 AM [facility] NRBC Absolute 0.00 <0.10 K/mcL LAB HEMETOLOGY METHOD 03/28/2025 10:46 AM [facility] Blood Venous blood specimen / Unknown Venipuncture / Unknown 03/28/2025 5:24 AM EDT 03/28/2025 10:08 AM EDT us Marvin Juarez MD LAB BLOOD ORDERABLES Final Resul t [facility] [address] [place] [address], documented in this encounter Visit Diagnoses Diagnosis Essential (primary) hypertension Unspecified essential hypertension documented in this encounter Care Teams Mobile Nurse Relationship Specialty Start Date End Date Fe León MD [address] [place] [address] 1 [place] [address] PCP - General Internal Medicine 01/30/25 documented as of this encounter
--- OUTSIDE RECORDS SUMMARY | 2025-08-10 13:24 | XMS_ITS | Encounter Summary ---
Author Organization [facility] Address [address] [place] [address] Care Team Providers Care Dope Maintenance Worker Name Role Phone Fe León MD Primary Care Provider [phone]- [phone] Encounter Details Date Type Department Care Team (Late st Contact Info) Description 03/30/2025 Lab Requisition [facility] - Main Lab [address] [facility] [place] [address] Marvin Juarez MD [address] [place] [address], [address] Essential (primary) hypertension Social History Tobacco [...] for your loved ones. For example, child study team director or elderly care for an older [...] Info) Description 08/15/2025 10:00 AM EDT Evaluation [facility] [address] [facility] 350 [place] [address] Yasmany Pope, PT 09/11/2025 11:15 AM EST Office Visit Neurosurgery [facility] [address] [facility] [address] [place] [address] Araseli Foster PA [address] [facility] [address] [place] [address] 11/13/2025 9:10 AM EST Office Visit [facility] [address] [facility] 154 [place] [address] Tricia Montague, LOGAN [address] [place] [address] [address] Tobin [address] [place] [address] documented as of this encounter Visit Diagnoses Diagnosis Essential (primary) hypertension Unspecified essential hypertension documented in this encounter Care Teams Dope Maintenance Worker Relationship Specialty Start Date End Date Fe León MD [address] [facility] [address] [place] [address] PCP - General Internal Medicine 01/30/25 documented as of this encounter
--- OUTSIDE RECORDS SUMMARY | 2025-08-10 13:24 | XMS_ITS ---
Author Organization [facility] Care Team Providers Care Ui Architect Name Role Phone Sonu Alcaraz Unavailable Unavailable Stephen Barlow Unavailable Unavailable Allergies and adverse reactions Code CodeSystem Substance Reaction Severity StartDate Concern Status 89122 RXNORM Benazepril Mild 04/07/2024 active 856184 RXNORM Celecoxib Mild 04/07/2024 active 99549 RXNORM Levaquin Eruption (code- 732136776, SNOMED CT) Mild 04/07/2024 active Care Team Name Role Address Phone Organization Dates Stephen Barlow PCP [address] [address], [place], [address], [facility] (Office): : [facility] 04/07/2024 - 04/08/2024 Sonu Alcaraz [address] [facility] [address], [place], [address], [facility] (Office): : : [facility] 04/07/2024 - 04/08/2024 Insurance Providers Problems Problem # Description Date of onset Resolved Date Code CodeSystem Concern Status 1 ANEMIA, UNSPECIFIED 04/07/[address] active 2 ANXIETY DISORDER, UNSPECIFIED 04/07/[address] active 3 CELIAC DISEASE 04/07/[address] ac tive 4 CHRONIC OBSTRUCTIVE PULMONARY DISEASE, UNSPECIFIED 04/07/[address] active 5 CHRONIC RESPIRATORY FAILURE WITH HYPOXIA 04/07/[address] active 6 DIVERTICULOSIS OF INTESTINE, PART UNSPECIFIED, WITHOUT PERFORATION OR ABSCESS WITHOUT BLEEDING 04/07/[address] active 7 ESSENTIAL (PRIMARY) HYPERTENSION 04/07/[address] active 8 FIBROMYALGIA 04/07/[address] acti ve 9 GASTRO-ESOPHAGEAL REFLUX DISEASE WITHOUT ESOPHAGITIS 04/07/[address] active 10 HYPOKALEMIA 04/07/[address] active 11 LOW BACK PAIN, UNSPECIFIED 04/07/[address] active 12 OTHER SPECIFIED DISORDERS OF BONE DENSITY AND STRUCTURE, UNSPECIFIED SITE 04/07/[address] active 13 OTHER SYMPTOMS AND SIGNS INVOLVING COGNITIVE FUNCTIONS AND AWARENESS 04/07/[address] active 14 PERIPHERAL VASCULAR DISEASE, UNSPECIFIED 04/07/[address] active 15 PERSONAL HISTORY OF OTHER ENDOCRINE, NUTRITIONAL AND METABOLIC DISEASE 04/07/[address] active 16 PLANTAR FASCIAL FIBROMATOSIS 04/07/[address] active 17 POLYNEUROPATHY, UNSPECIFIED 04/07/[address] active 18 RHEUMATOID ARTHRITIS, UNSPECIFIED 04/07/[address] active 19 TYPE 2 DIABETES MELLITUS WITHOUT COMPLICATIONS 04/07/[address] active 20 UNSPECIFIED ADRENOCORTICAL INSUFFICIENCY 04/07/[address] active 21 UNSPECIFIED ASTHMA, UNCOMPLICATED 04/07/[address] active 22 UNSPECIFIED ATRIAL FIBRILLATION 04/07/[address] active 23 UNSPECIFIED DIASTOLIC (CONGESTIVE) HEART FAILURE 04/07/[address] active 24 UNSPECIFIED FALL, SUBSEQUENT ENCOUNTER 04/07/[address] active 25 VITAMIN D DEFICIENCY, UNSPECIFIED 04/07/[address] active 26 WEDGE COMPRESSION FRACTURE OF UNSPECIFIED LUMBAR VERTEBRA, SUBSEQUENT ENCOUNTER FOR FRACTURE WITH ROUTINE HEALING 04/07/[address] active Reason for Referral No Reasons for Referral Entered Social History Social History Observation Description Start Date End Date Code Code System Current Smoking Status Tobacco smoking consumption unknown 252307987 SNOMED CT Sex Assigned At Female 1955 71770-9 [facility] Gender Identity Sexual Orientation Vital Signs Code Code System Vitals Name Values and Units Timing Information 30508-1 [facility] Pain Level Value=3.0 04/08/2024 9279-1 [facility] Respiratory Rate Value=17.0 Units=/m in 04/08/2024 8462-4 [facility] Blood Pressure-Diastolic Value=74 Un its=mmHg 04/08/2024 8480-6 [facility] Blood Pressure-Systolic Fezmz=489 Un its=mmHg 04/08/2024 8867-4 [facility] Heart rate Value=77.0 Units=/min 35325-6 [facility] O2 % dC Oximetry Value=83.0 Units= % 04/08/2024 8310-5 [facility] Body Temperature Value=97.9 Units= F 04/08/2024 2339-0 [facility] Blood Sugar Hpquy=270.0 Units=mg/dL 04/07/2024
--- OUTSIDE RECORDS SUMMARY | 2025-08-10 13:24 | XMS_ITS | Clinical Summary ---
Author Organization [facility] Address [address] [facility] [address] [place] [address] Phone Care Team Providers Care Paper Feeder Name Role Phone Fe León MD Primary [...] Medicaid [place] Care Teams Paper Feeder Relationship Specialty Start Date End Date Fe León MD [address] [place] [address] [place] [address] PCP - General Internal Medicine 03/31/21
== END 2025-08-10 11:42 | disposition home or self-care (01) ==
LOC: HO.PMC 11:07
PROVIDERS: PCP Internal Medicine; Visit Provider Registered Nurse Emergency
DX: G56.40 Causalgia of unspecified upper limb (principal)
CPT/HCPCS: 99204; G2211

== ENCOUNTER → 2025-08-10 11:06 | Outpatient (BNVA) | payer MEDICARE, MEDICAID, SELFPAY | PROVIDERS: PCP Internal Medicine; Visit Provider Registered Nurse Emergency | DX: G56.42 Causalgia of left upper limb (principal) | CPT/HCPCS: 99202 ==

== ENCOUNTER 2025-08-16 10:08 | Outpatient (RCR) | payer MEDICARE, MEDICAID, SELFPAY | END 2025-08-16 10:51 | disposition home or self-care (01) | LOC: HO.OT 10:08 | PROVIDERS: PCP Internal Medicine; Visit Provider Physician Assistant Medical | DX: M79.602 Pain in left arm (principal); M06.9 Rheumatoid arthritis, unspecified | CPT/HCPCS: 97110; 97140; 97166; 97530; 97760 ==